=== PATIENT | male | born 1955 | race African-American/Black ===

== ENCOUNTER 2016-04-12 18:19 | Emergency (ER) | payer OTHER ==
[~2016-04-12] VITALS: Ht 165.1 cm; Wt 95.0 kg
[~2016-04-12 18:19] MED LIST: BUPR75TA PO; HYDR12.57 PO; METH750T PO; MULT-135 PO; NOVO7030P2 SQ; PANT20TA2 PO; THIA50CA PO; TRAZ100T5 PO; VENL100T PO; VENTAER INH
[2016-04-12 19:14] VITALS: BP 153/77; PULSE 99; RESP 16; TEMP 98.2; O2SAT 96
--- NOTE | 2016-04-12 19:27 | PD ---
HPI Chief Complaint: Psychiatric Symptoms Time Seen by Provider: 19:23 Travel History International Travel<30 days: No Contact w/Intl Traveler<30days: No Traveled to known affect area: No History of Present Illness HPI Patient is a 60-year-old male brought into the emergency Department under [place] act for suicidal ideations. Patient called a suicide hotline stating that he wanted to kill himself, patient stated that he was depressed and has been using drugs and alcohol for the last 3 days. Patient allegedly told the crisis hotline that he wanted to kill himself by "bleeding out". Patient disclosed that he last used alcohol and cocaine around 2 PM. He denies any physical complaints at this time. He does report wanting to get his life back together. PFSH Past Medical History Anxiety: Yes Depression: Yes Heart Rhythm Problems: No Cancer: No Cardiovascular Problems: Yes High Cholesterol: Yes Diabetes: Yes Patient Takes Glucophage: No Diminished Hearing: No Endocrine: Yes Gastrointestinal Disorders: Yes GERD: Yes Genitourinary: Yes Hepatitis: Yes (C) Hypertension: Yes Immune Disorder: No Implanted Vascular Access Dvce: No Musculoskeletal: No Neurologic: No Psychiatric: Yes Reproductive: No Respiratory: No Immunizations Current: Yes Sleep Apnea: Yes (CPAP) Tetanus Vaccination: < 5 Years Influenza Vaccination: Yes Past Surgical History Abdominal Surgery: No Cardiac Surgery: No Endocrine Surgery: No Eye Surgery: Yes (RETINA SOCKET REPAIR) Genitourinary Surgery: No Gynecologic Surgery: No Thoracic Surgery: No Other Surgery: Yes (RIGHT HAND, LEFT EYE) Social History Alcohol Use: Yes (socially) Tobacco Use: Yes (1/2 PPD) Substance Use: Yes (HX OF COCAINE AND ETOH ABUSE) Allergies-Medications (Allergen,Severity, Reaction): Coded Allergies: Lisinopril (Verified Allergy, Unknown, 04/12/16) Reported Meds & Prescriptions Reported Meds & Active Scripts Active Reported Hydrochlorothiazide 12.5 Mg Cap 12.5 Mg PO DAILY Ventolin Hfa 18 GM Inh (Albuterol Sulfate) 90 Mcg/Act Aer 2 Puff INH Q6H PRN Multi Vitamin (Multiple Vitamin) 1 Tab Tab 1 Tab PO DAILY Effexor (Venlafaxine HCl) 100 Mg Tab 100 Mg PO DAILY Trazodone HCl 100 Mg Tab 1 Tab PO HS Thiamine (Thiamine HCl) 50 Mg Cap 50 Mg PO DAILY Novolin 70-30 Inj (Insulin Human Isoph/Insulin Regular) 1,000 Unit/10 Ml Vial 40 Units SQ BID Methocarbamol 750 Mg Tab 750 Mg PO HS Pantoprazole (Pantoprazole Sodium) 20 Mg Tab 20 Mg PO DAILY Bupropion HCl Unknown Strength Tab Unknown Dose PO BID Review of Systems Except as stated in HPI: all other systems reviewed are Neg Psychiatric: Positive: Depression, Suicidal Ideations, Substance Abuse Physical Exam Narrative GENERAL: Well-developed, well-nourished, alert male. Resting comfortably in no acute distress. SKIN: Warm and dry. HEAD: Atraumatic. Normocephalic. EYES: Pupils equal and round. No scleral icterus. No injection or drainage. ENT: No nasal bleeding or discharge. Mucous membranes pink and moist. NECK: Trachea midline. No JVD. CARDIOVASCULAR: Regular rate and rhythm. No murmur appreciated. RESPIRATORY: No accessory muscle use. Clear to auscultation. Breath sounds equal bilaterally. GASTROINTESTINAL: Abdomen soft, non-tender, nondistended. Hepatic and splenic margins not palpable. MUSCULOSKELETAL: No obvious deformities. No clubbing. No cyanosis. No edema. NEUROLOGICAL: Awake and alert. No obvious cranial nerve deficits. Motor grossly within normal limits. Normal speech. PSYCHIATRIC: Appropriate mood and affect; insight and judgment normal. Data Data Last Documented VS Vital Signs Date Time Temp Pulse Resp B/P Pulse Ox O2 Delivery O2 Flow Rate FiO2 04/12/16 21:18 98.7 101 19 160/80 98 Room Air Orders Complete Blood Count With Diff (04/12/16 19:20) Comprehensive Metabolic Panel (04/12/16 19:20) Electrocardiogram (04/12/16 19:20) Psych Screen (04/12/16 19:20) Drug Screen, Random Urine (04/12/16 19:20) Alcohol (Ethanol) (04/12/16 19:20) Salicylates (Aspirin) (04/12/16 19:20) Tylenol (Acetaminophen) (04/12/16 19:20) Labs Laboratory Tests Test 04/12/16 04/12/16 19:25 20:30 White Blood Count 12.8 TH/MM3 Red Blood Count 5.64 MIL/MM3 Hemoglobin 15.3 GM/DL Hematocrit 46.0 % Mean Corpuscular Volume 81.5 FL Mean Corpuscular Hemoglobin 27.1 PG Mean Corpuscular Hemoglobin 33.2 % Concent Red Cell Distribution Width 14.0 % Platelet Count 316 TH/MM3 Mean Platelet Volume 7.4 FL Neutrophils (%) (Auto) 57.1 % Lymphocytes (%) (Auto) 35.7 % Monocytes (%) (Auto) 5.6 % Eosinophils (%) (Auto) 0.4 % Basophils (%) (Auto) 1.2 % Neutrophils # (Auto) 7.3 TH/MM3 Lymphocytes # (Auto) 4.6 TH/MM3 Monocytes # (Auto) 0.7 TH/MM3 Eosinophils # (Auto) 0.0 TH/MM3 Basophils # (Auto) 0.2 TH/MM3 CBC Comment DIFF FINAL Differential Comment Sodium Level 137 MEQ/L Potassium Level 3.8 MEQ/L Chloride Level 101 MEQ/L Carbon Dioxide Level 23.7 MEQ/L Anion Gap 12 MEQ/L Blood Urea Nitrogen 12 MG/DL Creatinine 1.40 MG/DL Estimat Glomerular Filtration 63 ML/MIN Rate Random Glucose 173 MG/DL Calcium Level 8.5 MG/DL Total Bilirubin 0.4 MG/DL Aspartate Amino Transf 215 U/L (AST/SGOT) Alanine Aminotransferase 99 U/L (ALT/SGPT) Alkaline Phosphatase 100 U/L Total Protein 8.1 GM/DL Albumin 3.9 GM/DL Salicylates Level 4.1 MG/DL Acetaminophen Level LESS THAN 2.0 MCG/ML Ethyl Alcohol Level 104 MG/DL Urine Opiates Screen NEG Urine Barbiturates Screen NEG Urine Amphetamines Screen NEG Urine Benzodiazepines Screen NEG Urine Cocaine Screen POS Urine Cannabinoids Screen NEG MDM Medical Decision Making Medical Screen Exam Complete: Yes Emergency Medical Condition: Yes Medical Record Reviewed: Yes Interpretation(s) Laboratory Tests Test 04/12/16 04/12/16 19:25 20:30 White Blood Count 12.8 TH/MM3 Red Blood Count 5.64 MIL/MM3 Hemoglobin 15.3 GM/DL Hematocrit 46.0 % Mean Corpuscular Volume 81.5 FL Mean Corpuscular Hemoglobin 27.1 PG Mean Corpuscular Hemoglobin 33.2 % Concent Red Cell Distribution Width 14.0 % Platelet Count 316 TH/MM3 Mean Platelet Volume 7.4 FL Neutrophils (%) (Auto) 57.1 % Lymphocytes (%) (Auto) 35.7 % Monocytes (%) (Auto) 5.6 % Eosinophils (%) (Auto) 0.4 % Basophils (%) (Auto) 1.2 % Neutrophils # (Auto) 7.3 TH/MM3 Lymphocytes # (Auto) 4.6 TH/MM3 Monocytes # (Auto) 0.7 TH/MM3 Eosinophils # (Auto) 0.0 TH/MM3 Basophils # (Auto) 0.2 TH/MM3 CBC Comment DIFF FINAL Differential Comment Sodium Level 137 MEQ/L Potassium Level 3.8 MEQ/L Chloride Level 101 MEQ/L Carbon Dioxide Level 23.7 MEQ/L Anion Gap 12 MEQ/L Blood Urea Nitrogen 12 MG/DL Creatinine 1.40 MG/DL Estimat Glomerular Filtration 63 ML/MIN Rate Random Glucose 173 MG/DL Calcium Level 8.5 MG/DL Total Bilirubin 0.4 MG/DL Aspartate Amino Transf 215 U/L (AST/SGOT) Alanine Aminotransferase 99 U/L (ALT/SGPT) Alkaline Phosphatase 100 U/L Total Protein 8.1 GM/DL Albumin 3.9 GM/DL Salicylates Level 4.1 MG/DL Acetaminophen Level LESS THAN 2.0 MCG/ML Ethyl Alcohol Level 104 MG/DL Urine Opiates Screen NEG Urine Barbiturates Screen NEG Urine Amphetamines Screen NEG Urine Benzodiazepines Screen NEG Urine Cocaine Screen POS Urine Cannabinoids Screen NEG Vital Signs Date Time Temp Pulse Resp B/P Pulse Ox O2 Delivery O2 Flow Rate FiO2 04/12/16 19:16 16 04/12/16 19:14 98.2 99 16 153/77 96 Differential Diagnosis Mood disorder versus substance abuse versus suicidal ideations versus other Narrative Course Patient is a 60-year-old male presented to the emergency Department under [place] act for suicidal ideations. Patient is to binging on alcohol and cocaine for the last 3 days. He admits to feeling depressed and suicidal. He denies any physical complaints at this time. Vital signs are stable. Alcohol level was 104 Tox screen was positive for cocaine Chemistry with mild transaminitis likely secondary to alcohol binge for the last 3 days EKG shows sinus rhythm with incomplete right bundle-branch block. Patient is medically clear for psychiatric evaluation at this time. Patient was given a meal, he was encouraged to increase oral fluid intake. He was advised to avoid cocaine and alcohol use. Diagnosis Primary Impression: Medical clearance for psychiatric admission Additional Impressions: Transaminitis Alcohol abuse Cocaine abuse, unspecified Condition: Stable April Maradiaga Apr 12, 2016 19:27
[2016-04-12 19:40] LABS: AUTOMATED NEUTROPHIL # 7.3 TH/MM3 (1.8-7.7); BASOPHIL # 0.2 TH/MM3 (0-0.2); BASOPHIL % 1.2 % (0.0-2.0); EOSINOPHIL % 0.4 % (0.0-4.0); HEMO FLAGS DIFF FINAL; LYMPH % 35.7 % (9.0-44.0); LYMPHOCYTE # 4.6 TH/MM3 (1.0-4.8); MEAN CELL VOLUME 81.5 FL (80.0-100.0); MEAN CORPUSCULAR HEMOGLOBIN 27.1 PG (27.0-34.0); MEAN CORPUSCULAR HGB CONC 33.2 % (32.0-36.0); MONO % 5.6 % (0.0-8.0); NEUT % 57.1 % (16.0-70.0); PLATELET COUNT 316 TH/MM3 (150-450); RED BLOOD COUNT 5.64 MIL/MM3 (4.50-5.90); WHITE BLOOD COUNT 12.8 TH/MM3 (4.0-11.0)
[2016-04-12 20:07] LABS: ANION GAP 12 MEQ/L (5-15)
[2016-04-12 20:16] LABS: ALKALINE PHOSPHATASE 100 U/L (45-117); ALT (GPT) 99 U/L (12-78); AST (GOT) 215 U/L (15-37); BICARBONATE 23.7 MEQ/L (21.0-32.0); BLOOD UREA NITROGEN 12 MG/DL (7-18); CHLORIDE 101 MEQ/L (98-107); GLOMERULAR FILTRATION RATE 63 ML/MIN (>89); POTASSIUM 3.8 MEQ/L (3.5-5.1); SODIUM (NA) 137 MEQ/L (136-145); TOTAL BILIRUBIN ADULT 0.4 MG/DL (0.2-1.0)
[2016-04-12 20:28] LABS: ACETAMINOPHEN LESS THAN 2.0 MCG/ML (10.0-30.0)
[2016-04-12 21:16] LABS: AMPHETAMINE, URINE NEG (NEG); BARBITURATES, URINE NEG (NEG); COCAINE, URINE POS (NEG)
[2016-04-12 21:18] VITALS: BP 160/80; PULSE 101; RESP 19; TEMP 98.7; O2SAT 98
[2016-04-13 02:16] VITALS: BP 145/84; PULSE 83; RESP 19; O2SAT 98
[2016-04-13 06:48] VITALS: BP_SYST 145; BP_SYST 156; BP_DIAS 109; BP_DIAS 85; PULSE 83; RESP 18; O2SAT 97
[2016-04-13] MEDS ORDERED: INSULIN HUMAN NPH/R 70/30 1,000 UNITS/10 ML VIAL SQ ONE (08:15)
[2016-04-13 11:28] VITALS: BP 150/68; PULSE 90; RESP 16; TEMP 97.2; O2SAT 97
[2016-04-13] MEDS ORDERED: buPROPion HCL 150 MG SUSTAINED RELEASE TAB PO ONE (12:00)
--- NOTE | 2016-04-13 14:29 | EKG ---
Date Performed: 04/12/2016 Time Performed: 19:29:53 PTAGE: 60 years EKG: Sinus rhythm INCOMPLETE RIGHT BUNDLE BRANCH BLOCK NONSPECIFIC T-WAVE ABNORMALITY BORDERLINE ECG Compared to prior tracing no significant change PREVIOUS TRACING : 06/18/2014 09.47 DOCTOR: Conrado Ervin Interpretating Date/Time 04/13/2016 14:26:49
[2016-06-08] MEDS ORDERED: BUPR75TA PO (01:40)
== END 2016-04-13 14:31 ==
LOC: NEPE 18:19 → NEPJ 04-13 14:31
DX: R45.851 Suicidal ideations (principal); R74.0 Nonspecific elevation of levels of transaminase and lactic acid dehydrogenase [LDH]; F10.10 Alcohol abuse, uncomplicated; F10.129 Alcohol abuse with intoxication, unspecified; E78.00 Pure hypercholesterolemia, unspecified; E11.9 Type 2 diabetes mellitus without complications; I10 Essential (primary) hypertension; I45.10 Unspecified right bundle-branch block; F17.210 Nicotine dependence, cigarettes, uncomplicated; Y90.5 Blood alcohol level of 100-119 mg/100 ml; Z79.4 Long term (current) use of insulin
CPT/HCPCS: 80053; 80307; 85025; 93005; 96372; 99285; J1815; 80320

== ENCOUNTER 2016-05-07 04:18 | Inpatient (IN) | payer OTHER ==
[~2016-05-07] VITALS: Ht 172.7 cm; Wt 92.7 kg
[2016-05-07] VITALS (12 sets, daily range): BP systolic 142–175; BP diastolic 63–118; PULSE 68–104; RESP 15–24; TEMP 96.8–98.6; O2SAT 96–100
[2016-05-07] MEDS ORDERED: SODIUM CHLORIDE 0.9% FLUSH 10 ML FLUSH IVF PRN (04:45)
[2016-05-07] MEDS ORDERED: ASPIRIN 81 MG CHEW TAB PO ONE (04:45)
[2016-05-07 05:04] LABS: AUTOMATED NEUTROPHIL # 7.9 TH/MM3 (1.8-7.7); BASOPHIL # 0.1 TH/MM3 (0-0.2); BASOPHIL % 1.1 % (0.0-2.0); EOSINOPHIL % 0.2 % (0.0-4.0); HEMO FLAGS DIFF FINAL; LYMPH % 28.3 % (9.0-44.0); LYMPHOCYTE # 3.6 TH/MM3 (1.0-4.8); MEAN CELL VOLUME 80.2 FL (80.0-100.0); MEAN CORPUSCULAR HEMOGLOBIN 27.6 PG (27.0-34.0); MEAN CORPUSCULAR HGB CONC 34.4 % (32.0-36.0); NEUT % 61.4 % (16.0-70.0); PLATELET COUNT 286 TH/MM3 (150-450); RED BLOOD COUNT 5.49 MIL/MM3 (4.50-5.90); RED CELL DISTRIBUTION WIDTH 14.3 % (11.6-17.2); WHITE BLOOD COUNT 12.8 TH/MM3 (4.0-11.0)
[2016-05-07 05:14] LABS: INTERNATIONAL NORMALIZED RATIO 1.1 RATIO; PROTHROMBIN TIME - PATIENT 12.3 SEC (9.8-11.6)
[2016-05-07 05:16] LABS: ALT (GPT) 68 U/L (12-78); ANION GAP 10 MEQ/L (5-15); AST (GOT) 45 U/L (15-37); BICARBONATE 25.3 MEQ/L (21.0-32.0); BLOOD UREA NITROGEN 6 MG/DL (7-18); CHLORIDE 104 MEQ/L (98-107); GLOMERULAR FILTRATION RATE 76 ML/MIN (>89); MAGNESIUM 1.9 MG/DL (1.5-2.5); POTASSIUM 3.7 MEQ/L (3.5-5.1); SODIUM (NA) 139 MEQ/L (136-145)
--- NOTE | 2016-05-07 05:26 | RADRPT ---
EXAM DATE/TIME: 05/07/2016 05:21 [facility] COMPARISON: CHEST SINGLE AP, December 18, 2012, 2:46. INDICATIONS : Chest pain. MEDICAL HISTORY : None. SURGICAL HISTORY : None. ENCOUNTER: Initial ACUITY: 1 day PAIN SCORE: 6/10 LOCATION: Bilateral chest FINDINGS: A single view of the chest demonstrates the lungs to be symmetrically aerated without evidence of mas s, infiltrate or effusion. Minimal basilar atelectasis. The cardiomediastinal contours are unremarkab le. Osseous structures are intact. CONCLUSION: 1. Minimal basilar atelectasis. No significant change from December 2012. Angel Childers MD on May 07, 2016 at 5:24 Board Certified Radiologist. This report was verified electronically.
[2016-05-07 05:30] LABS: ALKALINE PHOSPHATASE 75 U/L (45-117); CREATINE KINASE 1562 U/L (39-308); TOTAL BILIRUBIN ADULT 0.4 MG/DL (0.2-1.0)
[2016-05-07 05:42] LABS: CKMB 12.6 NG/ML (0.5-3.6)
[2016-05-07] MEDS ORDERED: SODIUM CHLOR 0.9% 1000 ML INJ 1,000 ML IV ONE (06:15)
[2016-05-07] MEDS ORDERED: MORPHINE SULFATE 4 MG/ML INJ IV PUSH ONE (06:30)
--- NOTE | 2016-05-07 06:41 | PD ---
HPI Chief Complaint: Chest Pain Time Seen by Provider: 04:43 Travel History International Travel<30 days: No Contact w/Intl Traveler<30days: No Traveled to known affect area: No History of Present Illness HPI Patient is a 60-year-old male who comes in complaining of chest pain. He says he drank 12 beers tonight and did $100 worth of cocaine. He says the pain started about 2 hours ago and is on the left side. Also says he has some shortness of breath and some nausea. He denies fever or chills. He has been here in the past for the same thing. PFSH Past Medical History Anxiety: Yes Depression: Yes Heart Rhythm Problems: No Cancer: No Cardiovascular Problems: Yes High Cholesterol: Yes Diabetes: Yes Patient Takes Glucophage: Yes Diminished Hearing: No Endocrine: Yes Gastrointestinal Disorders: Yes GERD: Yes Genitourinary: Yes Hepatitis: Yes (C) Hypertension: Yes Immune Disorder: No Implanted Vascular Access Dvce: No Musculoskeletal: No Neurologic: No Psychiatric: Yes Reproductive: No Respiratory: No Immunizations Current: Yes Sleep Apnea: Yes (CPAP) Influenza Vaccination: Yes Past Surgical History Abdominal Surgery: No Cardiac Surgery: No Endocrine Surgery: No Eye Surgery: Yes (RETINA SOCKET REPAIR) Genitourinary Surgery: No Gynecologic Surgery: No Thoracic Surgery: No Other Surgery: Yes (RIGHT HAND, LEFT EYE) Social History Alcohol Use: Yes (daily) Tobacco Use: Yes (1/2 PPD) Substance Use: Yes (HX OF COCAINE AND ETOH ABUSE) Allergies-Medications (Allergen,Severity, Reaction): Coded Allergies: Lisinopril (Verified Allergy, Unknown, 05/07/16) Reported Meds & Prescriptions Reported Meds & Active Scripts Active Reported Hydrochlorothiazide 12.5 Mg Cap 12.5 Mg PO DAILY Ventolin Hfa 18 GM Inh (Albuterol Sulfate) 90 Mcg/Act Aer 2 Puff INH Q6H PRN Multi Vitamin (Multiple Vitamin) 1 Tab Tab 1 Tab PO DAILY Effexor (Venlafaxine HCl) 100 Mg Tab 100 Mg PO DAILY Trazodone HCl 100 Mg Tab 1 Tab PO HS Thiamine (Thiamine HCl) 50 Mg Cap 50 Mg PO DAILY Novolin 70-30 Inj (Insulin Human Isoph/Insulin Regular) 1,000 Unit/10 Ml Vial 40 Units SQ BID Methocarbamol 750 Mg Tab 750 Mg PO HS Pantoprazole (Pantoprazole Sodium) 20 Mg Tab 20 Mg PO DAILY Bupropion HCl Unknown Strength Tab Unknown Dose PO BID Review of Systems Except as stated in HPI: all other systems reviewed are Neg General / Constitutional: No: Fever, Chills HENT: No: Headaches, Lightheadedness Cardiovascular: Positive: Chest Pain or Discomfort Respiratory: Positive: Shortness of Breath Gastrointestinal: Positive: Nausea, No: Abdominal Pain Musculoskeletal: No: Edema, Pain Skin: No Rash, No Change in Pigmentation Neurologic: No: Weakness, Dizziness Physical Exam Narrative GENERAL: Awake and alert, in no acute distress. SKIN: Focused skin assessment warm/dry. HEAD: Atraumatic. Normocephalic. EYES: Pupils equal and round. No scleral icterus. ENT: Mucous membranes pink and moist. NECK: Trachea midline. No JVD. CARDIOVASCULAR: Tachycardia. No murmur appreciated. RESPIRATORY: No accessory muscle use. Clear to auscultation. Breath sounds equal bilaterally. GASTROINTESTINAL: Abdomen soft, non-tender, nondistended. MUSCULOSKELETAL: No obvious deformities. No clubbing. No cyanosis. No edema. NEUROLOGICAL: Awake and alert. No obvious cranial nerve deficits. Motor grossly within normal limits. Normal speech. PSYCHIATRIC: Appropriate mood and affect; insight and judgment normal. Data Data Last Documented VS Vital Signs Date Time Temp Pulse Resp B/P Pulse Ox O2 Delivery O2 Flow Rate FiO2 05/07/16 06:34 93 20 158/83 99 Nasal Cannula 05/07/16 05:16 2 05/07/16 04:54 98.6 Orders Ckmb (Isoenzyme) Profile (05/07/16 04:43) Complete Blood Count With Diff (05/07/16 04:43) Comprehensive Metabolic Panel (05/07/16 04:43) Magnesium (Mg) (05/07/16 04:43) Prothrombin Time / Inr (Pt) (05/07/16 04:43) Act Partial Throm Time (Ptt) (05/07/16 04:43) Troponin I (05/07/16 04:43) Chest, Single Ap (05/07/16 04:43) Ecg Monitoring (05/07/16 04:43) Bilateral Bp Monitoring (05/07/16 04:43) Iv Access Insert/Monitor (05/07/16 04:43) Oximetry (05/07/16 04:43) Oxygen Administration (05/07/16 04:43) Aspirin Chew (Aspirin Chew) (05/07/16 04:45) Sodium Chloride 0.9% Flush (Ns Flush) (05/07/16 04:45) Drug Screen, Random Urine (05/07/16 04:43) CKMB (05/07/16 04:50) CKMB% (05/07/16 04:50) Sodium Chlor 0.9% 1000 Ml Inj (Ns 1000 M (05/07/16 06:15) Morphine Inj (Morphine Inj) (05/07/16 06:30) Admit Order (Ed Use Only) (05/07/16 ) Labs Laboratory Tests Test 05/07/16 04:50 White Blood Count 12.8 TH/MM3 Red Blood Count 5.49 MIL/MM3 Hemoglobin 15.1 GM/DL Hematocrit 44.0 % Mean Corpuscular Volume 80.2 FL Mean Corpuscular Hemoglobin 27.6 PG Mean Corpuscular Hemoglobin 34.4 % Concent Red Cell Distribution Width 14.3 % Platelet Count 286 TH/MM3 Mean Platelet Volume 7.9 FL Neutrophils (%) (Auto) 61.4 % Lymphocytes (%) (Auto) 28.3 % Monocytes (%) (Auto) 9.0 % Eosinophils (%) (Auto) 0.2 % Basophils (%) (Auto) 1.1 % Neutrophils # (Auto) 7.9 TH/MM3 Lymphocytes # (Auto) 3.6 TH/MM3 Monocytes # (Auto) 1.2 TH/MM3 Eosinophils # (Auto) 0.0 TH/MM3 Basophils # (Auto) 0.1 TH/MM3 CBC Comment DIFF FINAL Differential Comment Prothrombin Time 12.3 SEC Prothromb Time International 1.1 RATIO Ratio Activated Partial 25.0 SEC Thromboplast Time Sodium Level 139 MEQ/L Potassium Level 3.7 MEQ/L Chloride Level 104 MEQ/L Carbon Dioxide Level 25.3 MEQ/L Anion Gap 10 MEQ/L Blood Urea Nitrogen 6 MG/DL Creatinine 1.19 MG/DL Estimat Glomerular Filtration 76 ML/MIN Rate Random Glucose 125 MG/DL Calcium Level 8.9 MG/DL Magnesium Level 1.9 MG/DL Total Bilirubin 0.4 MG/DL Aspartate Amino Transf 45 U/L (AST/SGOT) Alanine Aminotransferase 68 U/L (ALT/SGPT) Alkaline Phosphatase 75 U/L Total Creatine Kinase 1562 U/L Creatine Kinase MB 12.6 NG/ML Creatine Kinase MB % 0.8 % Troponin I 0.05 NG/ML Total Protein 7.6 GM/DL Albumin 3.6 GM/DL MDM Medical Decision Making Medical Screen Exam Complete: Yes Emergency Medical Condition: Yes Medical Record Reviewed: Yes Interpretation(s) ECG shows sinus tachycardia at 101, no ST elevation or depression. Differential Diagnosis ACS versus NSTEMI versus STEMI versus cocaine chest pain versus rhabdo Narrative Course Patient is a 60-year-old male comes in complaining of chest pain after using cocaine tonight. Exam shows no acute abnormalities other than some mild tachycardia. IV established, labs sent. Patient connected to the front desk monitor. Given aspirin. Significant for a total CK of 1500. Troponin is negative. Patient given IV fluids. Given morphine for pain. Will be placed in observation for further management. Diagnosis Primary Impression: Rhabdomyolysis Qualified Code: M62.82 - Non-traumatic rhabdomyolysis Additional Impression: Chest pain Qualified Code: R07.9 - Chest pain, unspecified type Admitting Information Admitting Physician Requests: Observation Condition: Stable Samantha Dejesus MD May 07, 2016 06:41
[2016-05-07] MEDS ORDERED: ACETAMINOPHEN 325 MG TAB PO PRN (06:45)
[2016-05-07] MEDS ORDERED: DEXTROSE 50% IN WATER 50 ML VIAL(D50) IV PUSH PRN (06:45)
[2016-05-07] MEDS: HEPARIN SODIUM - SQ 10,000 UNITS/ML VIAL SQ SCH ×3 (06:45→21:03)
[2016-05-07] MEDS ORDERED: GLUCAGON 1 MG/ML VIAL OTHER PRN (06:45)
[2016-05-07] MEDS ORDERED: MAGNESIUM HYDROXIDE SUSP 30 ML CUP PO PRN (06:45)
[2016-05-07] MEDS ORDERED: ONDANSETRON HCL 4 MG/2 ML VIAL IVP PRN (06:45)
[2016-05-07] MEDS ORDERED: SENNOSIDES 8.6 MG TAB PO PRN (06:45)
[2016-05-07] MEDS: SODIUM CHLOR 0.9% 1000 ML INJ 1,000 ML IV SCH ×3 (06:53→19:58)
[2016-05-07] MEDS: INSULIN ASPART SUPPLEMENTAL SCALE SQ SCH ×4 (07:00→21:02)
[2016-05-07] MEDS ORDERED: ALBUTEROL SULFATE 90 MCG/ACT HFA 18 GM INHALER INH PRN (09:15)
[2016-05-07] MEDS: THIAMINE INJ 100 MG in SODIUM CHLORIDE 0.9% INJ 100 ML IV SCH (09:18)
[2016-05-07] MEDS ORDERED: LORazepam 1 MG TAB PO PRN (10:15)
[2016-05-07] MEDS ORDERED: LORazepam 2 MG TAB PO PRN (10:15)
[2016-05-07] MEDS ORDERED: FLUMAZENIL 0.5 MG/5 ML VIAL IV PUSH PRN (10:15)
[2016-05-07] MEDS ORDERED: LORazepam 2 MG/ML VIAL IV PUSH PRN ×2 (10:15)
[2016-05-07] MEDS ORDERED: cloNIDine HCL 0.1 MG TAB PO PRN (11:00)
--- NOTE | 2016-05-07 11:15 | HHI.HP ---
HPI Service [facility] Primary Care Physician Ap Cope MD Admission Diagnosis Chest Pain, rhabdo Diagnoses: Chief Complaint: Chest pain Travel History International Travel<30 Days: No Contact w/Intl Traveler <30 Da: No Traveled to Known Affected Are: No History of Present Illness 60-year-old male with a past medical history of polysubstance abuse, DM, anxiety /depression, HTN, GERD, COPD who presented with nervousness, chest, neck, low back pain. The patient states that recently he's been having pain in his chest , neck, and lower back. He states the pain was exacerbated after smoking crack cocaine yesterday. He states that recently he's been more anxious and depressed and normal, so he is been drinking and using drugs more. He states that normally he drinks beer every day. However for the past 2 weeks he's been constantly drinking liquor as well. He's been smoking crack cocaine approximately twice a week. He describes the chest pain as left-sided, a pressure, intermittently heavy, no radiation, 7/10 at its worst, associated shortness of breath. He states morphine helped the pain and he is requesting more morphine. He denies any prior cardiac history. He had vomiting 2 days ago , still has associated nausea. He has left thigh cramping. Review of Systems Except as stated in HPI: all other systems reviewed are Neg Past Family Social History Past Medical History Diabetes mellitus Anxiety/depression Hypertension GERD COPD Past Surgical History Right orbit surgery Right hand surgery Reported Medications Hydrochlorothiazide 12.5 Mg Cap 12.5 Mg PO DAILY Ventolin Hfa 18 GM Inh (Albuterol Sulfate) 90 Mcg/Act Aer 2 Puff INH Q6H PRN Multi Vitamin (Multiple Vitamin) 1 Tab Tab 1 Tab PO DAILY Effexor (Venlafaxine HCl) 100 Mg Tab 100 Mg PO DAILY Trazodone HCl 100 Mg Tab 1 Tab PO HS Thiamine (Thiamine HCl) 50 Mg Cap 50 Mg PO DAILY Novolin 70-30 Inj (Insulin Human Isoph/Insulin Regular) 1,000 Unit/10 Ml Vial 40 Units SQ BID Methocarbamol 750 Mg Tab 750 Mg PO HS Pantoprazole (Pantoprazole Sodium) 20 Mg Tab 20 Mg PO DAILY Bupropion HCl Unknown Strength Tab Unknown Dose PO BID Allergies: Coded Allergies: Lisinopril (Verified Allergy, Unknown, 05/07/16) Active Ordered Medications Current Medications Medications (Trade) Dose Ordered Sig/Salas Route Start Time Stop Time Status Last Admin Sodium Chloride 2 ml 2 ml UNSCH PRN IVF 05/07/16 04:45 (NS 1000 ml Inj) 1,000 ml @ 150 mls/hr Q6H40M IV 05/07/16 06:38 05/07/16 06:53 (Zofran Inj) 4 mg Q6H PRN IVP 05/07/16 06:45 (Milk Of Magnesia Liq) 30 ml Q12H PRN PO 05/07/16 06:45 (Senokot) 17.2 mg Q12H PRN PO 05/07/16 06:45 (Heparin Inj) 5,000 units Q8HR SQ 05/07/16 06:45 (Tylenol) 650 mg Q6H PRN PO 05/07/16 06:45 (D50w (Vial) Inj) 25 ml UNSCH PRN IV PUSH 05/07/16 06:45 Glucagon 1 mg 1 mg UNSCH PRN OTHER 05/07/16 06:45 (Thiamine Inj/NS Inj) 101 ml @ 101 mls/hr DAILY IV 05/07/16 09:00 05/07/16 09:18 (Ventolin Hfa Inh) 2 puff Q6H PRN INH 05/07/16 09:15 (Protonix) 20 mg DAILY PO 05/08/16 09:00 (Vitamin B1) 50 mg DAILY PO 05/08/16 09:00 (Effexor) 100 mg DAILY PO 05/07/16 09:15 (Desyrel) 100 mg HS PO 05/07/16 21:00 (Folate) 1 mg DAILY PO 05/08/16 09:00 05/13/16 08:59 (Theragran M Tab) 1 tab DAILY PO 05/08/16 09:00 05/13/16 08:59 (Catapres) 0.1 mg Q6H PRN PO 05/07/16 11:00 (Romazicon Inj) 0.2 mg Q1M PRN IV PUSH 05/07/16 10:15 (Ativan) 1 mg Q4H PRN PO 05/07/16 10:15 (Ativan) 2 mg Q2H PRN PO 05/07/16 10:15 (Ativan Inj) 2 mg Q1H PRN IV PUSH 05/07/16 10:15 (Ativan Inj) 2 mg Q15M PRN IV PUSH 05/07/16 10:15 Family History Diabetes Social History Drinks beer daily, has been drinking liquor more recently Smokes crack cocaine approximately twice weekly Smokes about 1 pack tobacco daily Physical Exam Vital Signs Vital Signs Date Time Temp Pulse Resp B/P Pulse Ox O2 Delivery O2 Flow Rate FiO2 05/07/16 09:00 94 15 175/80 97 Room Air 05/07/16 06:50 68 20 148/63 98 Nasal Cannula 2 05/07/16 06:34 93 20 158/83 99 Nasal Cannula 05/07/16 05:16 97 24 155/118 96 2 163/79 05/07/16 04:57 96 Nasal Cannula 2 05/07/16 04:56 96 24 96 Nasal Cannula 05/07/16 04:54 98.6 20 96 Nasal Cannula 2 05/07/16 04:36 98.6 104 20 161/77 96 Physical Exam GENERAL: Well-developed well-nourished. In no acute distress. Forceful coughing after no previous complaints of cough. SKIN: Warm and dry. No lesions noted. HEENT: Normocephalic. Pupils equal and round. Mucous membranes pink and moist. CARDIOVASCULAR: Regular rate and rhythm. No murmur appreciated. RESPIRATORY: No accessory muscle use. Clear to auscultation. Breath sounds equal bilaterally. GASTROINTESTINAL: Abdomen soft, non-tender, nondistended. Bowel sounds x4. MUSCULOSKELETAL: No obvious deformities. No clubbing or cyanosis. No edema. NEUROLOGICAL: Awake and alert. No focal neurological deficits. Moves upper and lower extremities spontaneously. Normal speech. PSYCHIATRIC: Appropriate mood and affect; insight and judgment normal. Laboratory Laboratory Tests Test 05/07/16 04:50 White Blood Count 12.8 Red Blood Count 5.49 Hemoglobin 15.1 Hematocrit 44.0 Mean Corpuscular Volume 80.2 Mean Corpuscular Hemoglobin 27.6 Mean Corpuscular Hemoglobin 34.4 Concent Red Cell Distribution Width 14.3 Platelet Count 286 Mean Platelet Volume 7.9 Neutrophils (%) (Auto) 61.4 Lymphocytes (%) (Auto) 28.3 Monocytes (%) (Auto) 9.0 Eosinophils (%) (Auto) 0.2 Basophils (%) (Auto) 1.1 Neutrophils # (Auto) 7.9 Lymphocytes # (Auto) 3.6 Monocytes # (Auto) 1.2 Eosinophils # (Auto) 0.0 Basophils # (Auto) 0.1 CBC Comment DIFF FINAL Differential Comment Prothrombin Time 12.3 Prothromb Time International 1.1 Ratio Activated Partial 25.0 Thromboplast Time Sodium Level 139 Potassium Level 3.7 Chloride Level 104 Carbon Dioxide Level 25.3 Anion Gap 10 Blood Urea Nitrogen 6 Creatinine 1.19 Estimat Glomerular Filtration 76 Rate Random Glucose 125 Calcium Level 8.9 Magnesium Level 1.9 Total Bilirubin 0.4 Aspartate Amino Transf 45 (AST/SGOT) Alanine Aminotransferase 68 (ALT/SGPT) Alkaline Phosphatase 75 Total Creatine Kinase 1562 Creatine Kinase MB 12.6 Creatine Kinase MB % 0.8 Troponin I 0.05 Total Protein 7.6 Albumin 3.6 Result Diagram: 05/07/1644905/07/16449 Imaging Last Impressions Chest X-Ray 05/07/16442 Signed Impressions: Service Date/Time: Saturday, May 07, 2016 05:21 - CONCLUSION: 1. Minimal basilar atelectasis. No significant change from December 2012. Angel Childers MD Assessment and Plan Problem List: (1) Rhabdomyolysis ICD Code: M62.82 Status: Acute (2) Chest pain ICD Code: R07.9 Status: Acute (3) Cocaine abuse, unspecified ICD Code: F14.10 Status: Acute (4) Alcohol abuse ICD Code: F10.10 Status: Chronic (5) Diabetes ICD Code: E11.9 Status: Chronic Assessment and Plan 60-year-old male with a past medical history of polysubstance abuse, DM, anxiety /depression, HTN, GERD, COPD who presented with nervousness, chest, neck, low back pain Acute rhabdomyolysis: CPK 1562, likely secondary to cocaine use. Patient has associated left thigh cramping and pain in his chest, neck, and low back. Aggressive IVF. Trend CPK. Monitor renal function. Avoid cocaine. Chest pain: Likely secondary to rhabdomyolysis and cocaine use as above. Initial troponin within normal limits, trending. EKG with NSR, rate 101, no significant change from previous. Chest x-ray with minimal basilar atelectasis , no significant change from previous. IS. Treat rhabdomyolysis as above. Given aspirin in the ED. Avoid beta blockers and cocaine use. Polysubstance abuse: Secondary to anxiety and depression per patient. Cessation counseling. Resume home antidepressants and anxiolytics. Consult psychiatry. Alcohol abuse: Daily use, no signs of withdrawal currently. CIWA protocol and rally pack. Diabetes mellitus: Resume home Novolin 70/30. Additional coverage with SSI with Accu-Cheks. DVT prophylaxis: Heparin Written by Thor Givens, acting as scribe for Dr. Lopez on 05/07/16 at 11:15. All or portions of this note were transcribed by starr STEINBERG. I, Dr. Sofía Lopez personally performed the history, physical exam, and medical decision making; and confirmed the accuracy of the information in the transcribed note. Authenticated by Dr. Sofía Lopez on 05/07/16 at 11:15. Discussed Condition With Patient Problem Qualifiers (1) Rhabdomyolysis: Qualified Code: M62.82 - Non-traumatic rhabdomyolysis (2) Chest pain: Qualified Code: R07.9 - Chest pain, unspecified type Thor Givens May 07, 2016 11:15 Sofía Lopez MD May 07, 2016 15:41
[2016-05-07] MEDS: VENLAFAXINE HCL 25 MG TAB PO SCH (11:21)
[2016-05-07 17:03] LABS: CKMB 9.5 NG/ML (0.5-3.6)
[2016-05-07 19:50] LABS: AMPHETAMINE, URINE NEG (NEG); BARBITURATES, URINE NEG (NEG); COCAINE, URINE POS (NEG)
--- NOTE | 2016-05-07 20:17 | EKG ---
Date Performed: 05/07/2016 Time Performed: 04:27:40 PTAGE: 60 years EKG: SINUS TACHYCARDIA ABNORMAL RHYTHM ECG Compared to prior tracing no significant change DOCTOR: Gely Goodman Interpretating Date/Time 05/07/2016 20:16:18
[2016-05-07] MEDS ORDERED: traZODone HCL 100 MG TAB PO SCH (21:00)
[2016-05-07] MEDS: INSULIN HUMAN NPH/R 70/30 1,000 UNITS/10 ML VIAL SQ SCH (21:03)
[2016-05-07 22:00] LABS: CKMB 7.3 NG/ML (0.5-3.6)
[2016-05-08] VITALS: BP 130/64; PULSE 93; RESP 20; TEMP 96.5; O2SAT 94
[2016-05-08] MEDS: SODIUM CHLOR 0.9% 1000 ML INJ 1,000 ML IV SCH (02:38)
[2016-05-08 04:00] VITALS: BP 151/70; PULSE 73; RESP 20; O2SAT 94
[2016-05-08] MEDS: INSULIN ASPART SUPPLEMENTAL SCALE SQ SCH ×2 (06:00→11:00)
[2016-05-08] MEDS: HEPARIN SODIUM - SQ 10,000 UNITS/ML VIAL SQ SCH ×2 (06:00→13:39)
[2016-05-08 07:08] LABS: AUTOMATED NEUTROPHIL # 4.6 TH/MM3 (1.8-7.7); BASOPHIL # 0.1 TH/MM3 (0-0.2); BASOPHIL % 0.8 % (0.0-2.0); EOSINOPHIL # 0.1 TH/MM3 (0-0.4); EOSINOPHIL % 1.5 % (0.0-4.0); HEMATOCRIT 42.8 % (39.0-51.0); HEMO FLAGS DIFF FINAL; LYMPH % 41.3 % (9.0-44.0); MEAN CELL VOLUME 82.2 FL (80.0-100.0); MEAN CORPUSCULAR HEMOGLOBIN 26.7 PG (27.0-34.0); MEAN CORPUSCULAR HGB CONC 32.4 % (32.0-36.0); MONO % 9.4 % (0.0-8.0); PLATELET COUNT 262 TH/MM3 (150-450); RED BLOOD COUNT 5.21 MIL/MM3 (4.50-5.90); RED CELL DISTRIBUTION WIDTH 14.1 % (11.6-17.2); WHITE BLOOD COUNT 9.8 TH/MM3 (4.0-11.0)
--- NOTE | 2016-05-08 07:22 | HHI.PR ---
Subjective Remarks At the margin of the bed. Says she feesl much better. Denies chest pain , n/v/d/ c. Seen by psych cleared the patient for DC to follow up as OP with psych doc at [place] Objective Vitals Vital Signs Date Time Temp Pulse Resp B/P Pulse Ox O2 Delivery O2 Flow Rate FiO2 05/08/16 04:00 73 20 151/70 94 05/08/16 00:00 96.5 93 20 130/64 94 05/07/16 21:05 82 05/07/16 20:00 97.2 87 20 175/81 97 05/07/16 15:31 79 05/07/16 15:00 96.8 75 16 166/82 96 05/07/16 11:36 100 Nasal Cannula 2.00 05/07/16 11:36 100 21 05/07/16 11:23 86 15 142/69 99 Room Air 2 05/07/16 09:00 94 15 175/80 97 Room Air I/O 05/07/16 05/07/16 05/07/16 05/08/16 05/08/16 05/08/16 07:00 15:00 23:00 07:00 15:00 23:00 Intake Total 935 ml 240 ml Output Total 500 ml 800 ml Balance -500 ml 935 ml -560 ml Intake Oral 480 ml 240 ml IV Total 455 ml Output Urine Total 500 ml 800 ml # Voids 1 Result Diagram: 05/08/16 0550 05/07/16 0450 Imaging Last Impressions Chest X-Ray 05/07/16 0443 Signed Impressions: Service Date/Time: Saturday, May 07, 2016 05:21 - CONCLUSION: 1. Minimal basilar atelectasis. No significant change from December 2012. Angel Childers MD Objective Remarks GENERAL: Well-developed well-nourished. In no acute distress. SKIN: Warm and dry. No lesions noted. HEENT: Normocephalic. Pupils equal and round. Mucous membranes pink and moist. CARDIOVASCULAR: Regular rate and rhythm. No murmur appreciated. RESPIRATORY: No accessory muscle use. Clear to auscultation. Breath sounds equal bilaterally. GASTROINTESTINAL: Abdomen soft, non-tender, nondistended. Bowel sounds x4. MUSCULOSKELETAL: No obvious deformities. No clubbing or cyanosis. No edema. NEUROLOGICAL: Awake and alert. No focal neurological deficits. Moves upper and lower extremities spontaneously. Normal speech. PSYCHIATRIC: Appropriate mood and affect; insight and judgment normal. A/P Problem List: (1) Rhabdomyolysis ICD Code: M62.82 Status: Acute (2) Chest pain ICD Code: R07.9 Status: Acute (3) Cocaine abuse, unspecified ICD Code: F14.10 Status: Acute (4) Alcohol abuse ICD Code: F10.10 Status: Chronic (5) Diabetes ICD Code: E11.9 Status: Chronic Assessment and Plan 60-year-old male with a past medical history of polysubstance abuse, DM, anxiety /depression, HTN, GERD, COPD who presented with nervousness, chest, neck, low back pain Acute rhabdomyolysis: CPK 1562 on admission, likely secondary to cocaine use. CPK trending down. Patient has associated left thigh cramping and pain in his chest, neck, and low back. Aggressive IVF. Trend CPK. Monitor renal function. Avoid cocaine. Chest pain: Likely secondary to rhabdomyolysis and cocaine use as above. Initial troponin within normal limits, trending. EKG with NSR, rate 101, no significant change from previous. Chest x-ray with minimal basilar atelectasis , no significant change from previous. IS. Treat rhabdomyolysis as above. Given aspirin in the ED. Avoid beta blockers and cocaine use. Polysubstance abuse: Secondary to anxiety and depression per patient. Cessation counseling. Resume home antidepressants and anxiolytics. Consult psychiatry. Discussed with Dr Saleh,psych. Patient is cleared for DC to follow up as OP with his psychiatry doctor. Alcohol abuse: Daily use, no signs of withdrawal currently. CIWA protocol and rally pack. Diabetes mellitus: Resume home Novolin 70/30. Additional coverage with SSI with Accu-Cheks. DVT prophylaxis: Heparin Discussed Condition With Patient, nurse Discharge Planning DC home in stable condition To followup as OP with PCP and psych Diet: Keep hydrated, drink plenty of fluids. Regular diet as tolerated. Quit EtOH use and substance use. Activity ad lid as tolerated Meds per med reconciliations Problem Qualifiers (1) Rhabdomyolysis: Qualified Code: M62.82 - Non-traumatic rhabdomyolysis (2) Chest pain: Qualified Code: R07.9 - Chest pain, unspecified type Sofía Lopez MD May 08, 2016 07:22
[2016-05-08 07:35] LABS: ALKALINE PHOSPHATASE 70 U/L (45-117); ALT (GPT) 50 U/L (12-78); ANION GAP 9 MEQ/L (5-15); AST (GOT) 29 U/L (15-37); BICARBONATE 27.2 MEQ/L (21.0-32.0); BLOOD UREA NITROGEN 10 MG/DL (7-18); CHLORIDE 105 MEQ/L (98-107); CREATINE KINASE 716 U/L (39-308); GLOMERULAR FILTRATION RATE 77 ML/MIN (>89); POTASSIUM 3.9 MEQ/L (3.5-5.1); SODIUM (NA) 141 MEQ/L (136-145); TOTAL BILIRUBIN ADULT 0.3 MG/DL (0.2-1.0)
[2016-05-08 08:04] LABS: CKMB 6.1 NG/ML (0.5-3.6)
[2016-05-08] MEDS ORDERED: SODIUM CHLOR 0.9% 1000 ML INJ 1,000 ML IV ONE (08:15)
--- NOTE | 2016-05-08 08:15 | HHI.DCPOC ---
Discharge Care Plan Goals to Promote Your Health * To prevent worsening of your condition and complications * To maintain your health at the optimal level Directions to Meet Your Goals Take your medications as prescribed Follow your dietary instruction Follow activity as directed Keep your appointments as scheduled Take your immunizations and boosters as scheduled If your symptoms worsen call your PCP, if no PCP go to Urgent Care Center or Emergency Room Smoking is Dangerous to Your Health. Avoid second hand smoke Call the 24-hour hour crisis hotline for domestic abuse at Sofía Lopez MD May 08, 2016 08:15
[2016-05-08] MEDS: THIAMINE INJ 100 MG in SODIUM CHLORIDE 0.9% INJ 100 ML IV SCH (08:33)
[2016-05-08] MEDS: VENLAFAXINE HCL 25 MG TAB PO SCH (08:33)
[2016-05-08] MEDS: INSULIN HUMAN NPH/R 70/30 1,000 UNITS/10 ML VIAL SQ SCH (08:43)
[2016-05-08 08:56] VITALS: BP 150/77; PULSE 85; RESP 16; TEMP 97.2; O2SAT 94
[2016-05-08] MEDS ORDERED: FOLIC ACID 1 MG TAB PO SCH (09:00)
[2016-05-08] MEDS ORDERED: THIAMINE HCL 100 MG TAB PO SCH (09:00)
[2016-05-08] MEDS ORDERED: PANTOPRAZOLE SOD 20 MG DELAYED RELEASE TAB PO SCH (09:00)
[2016-05-08] MEDS ORDERED: MULTIVITAMINS/MINERALS THERAPEUTIC TAB PO SCH (09:00)
[2016-05-08] MEDS ORDERED: PNEUMOCOCCAL POLYVALENT INJ 25 MCG/0.5 ML SYR IM ONE (10:00)
[2016-05-08] MEDS ORDERED: INFLUENZA VIRUS VACCINE (QUADRIVALENT) 0.5 ML SYR IM ONE (10:00)
[2016-05-08 12:12] VITALS: BP 151/88; PULSE 85; RESP 16; TEMP 97.1; O2SAT 97
[2016-05-08 12:14] VITALS: PULSE 95
--- NOTE | 2016-05-08 14:55 | PD.CONS ---
Provisional Diagnosis Admission Date May 07, 2016 at 06:38 [place] I. schizoaffective disorder, anxiety, polysubstance dependence including cocaine, alcohol and opiates [place] II. Deferred [place] III. DM, HTN, hepatitis, chest pain [place] IV. 55 [place] V. 55 History of Present Illness Service Psychiatry Consult Requested By Primary Care Physician Ap Cope MD HPI The patient is a 60-year-old -Monegasque man, domiciled alone in [place], divorce, with psychiatric history of schizoaffective disorder, anxiety, polysubstance dependence including cocaine, opiates and alcohol, multiple psychiatric hospitalizations, suicide attempts by overdosing, active outpatient psychiatric care in [place], he is on bupropion 100 mg, quetiapine 25 mg and Paxil the 100 mg, with a past medical history of DM, HTN, GERD, COPD who presented in the hospital with nervousness, chest, neck, low back pain. The patient states that recently he's been having pain in his chest, neck, and lower back. He states the pain was exacerbated after smoking crack cocaine yesterday. He states that recently he's been more anxious and depressed and normal, so he is been drinking and using drugs more. Initial evaluation found Acute rhabdomyolysis: CPK 1562, likely secondary to cocaine use. Patient was consulted to psychiatry due to depressive symptoms. On psychiatric evaluation today patient became upset when he saw me in the room and stated that [facility], however after reassurance and redirection patient became more cooperative. He says that he came to the hospital because he had chest pain, he thought that he had a heart attack and for the reason he was depressed at the beginning, right now he reports good mood, he denies depressive symptoms, he denies anxiety, patient denies suicidal or homicidal ideation, denies visual and auditory hallucinations. Patient reports good compliant with medications and [facility]. He seen a psychiatrist every 3 months. He reports almost daily use of alcohol, about 2 or of Risa per day, 2 or 3 times per week use of cocaine. Review of Systems Constitutional: DENIES: Diaphoretic episodes, Fatigue, Fever, Weight gain, Weight loss, Chills, Dizziness, Change in appetite, Night Sweats Eyes: DENIES: Blurred vision, Diplopia, Eye inflammation, Eye pain, Vision loss , Photosensitivity, Double Vision Ears, nose, mouth, throat: DENIES: Tinnitus, Hearing loss, Vertigo, Nasal discharge, Oral lesions, Throat pain, Hoarseness, Ear Pain, Running Nose, Epistaxis, Sinus Pain, Toothache, Odynophagia Cardiovascular: DENIES: Chest pain, Palpitations, Syncope, Dyspnea on Exertion , PND, Lower Extremity Edema, Orthopnea, Claudication Gastrointestinal: DENIES: Abdominal pain, Black stools, Bloody stools, Constipation, Diarrhea, Nausea, Vomiting, Difficulty Swallowing, Anorexia Musculoskeletal: DENIES: Joint pain, Muscle aches, Stiffness, Joint Swelling, Back pain, Neck pain Integumentary: DENIES: Abnormal pigmentation, Nail changes, Pruritus, Rash Hematologic/lymphatic: DENIES: Bruising, Lymphadenopathy Immunologic/allergic: DENIES: Eczema, Urticaria Neurologic: DENIES: Abnormal gait, Headache, Localized weakness, Paresthesias, Seizures, Speech Problems, Tremor, Poor Balance Psychiatric: DENIES: Anxiety, Confusion, Mood changes, Depression, Hallucinations, Agitation, Suicidal Ideation, Homicidal Ideation, Delusions Past Family Social History Coded Allergies: Lisinopril (Verified Allergy, Unknown, 05/07/16) Reported Medications Hydrochlorothiazide 12.5 Mg Cap12.5 Mg PO DAILY #30 CAP Ref 0 12/15/15 Albuterol 18 GM Inh (Ventolin Hfa 18 GM Inh)90 Mcg/Act Aer2 Puff INH Q6H PRN ( SHORTNESS OF BREATH) #1 INHALER Ref 0 12/15/15 Multiple Vitamin (Multi Vitamin)1 Tab Tab1 Tab PO DAILY 12/15/15 Venlafaxine (Effexor)100 Mg [id number] Mg PO DAILY #60 TAB Ref 0 12/15/15 Trazodone HCl 100 Mg Tab1 Tab PO HS 12/15/15 Thiamine 50 Mg Cap50 Mg PO DAILY Ref 0 12/15/15 Insulin Human Isophane-Regular 70-30 Inj (Novolin 70-30 Inj)1,000 Unit/10 Ml Vial40 Units SQ BID Ref 0 12/15/15 Methocarbamol 750 Mg [id number] Mg PO HS #120 TAB Ref 0 12/15/15 Pantoprazole 20 Mg Tab20 Mg PO DAILY #30 TAB Ref 0 12/15/15 Bupropion HCl Unknown Strength TabUnknown Dose PO BID Ref 0 12/15/15 Current Medications Medications (Trade) Dose Ordered Sig/Salas Route Start Time Stop Time Status Last Admin Sodium Chloride 2 ml 2 ml UNSCH PRN IVF 05/07/16 04:45 (NS 1000 ml Inj) 1,000 ml @ 150 mls/hr Q6H40M IV 05/07/16 06:38 05/08/16 02:38 (Zofran Inj) 4 mg Q6H PRN IVP 05/07/16 06:45 (Milk Of Magnesia Liq) 30 ml Q12H PRN PO 05/07/16 06:45 (Senokot) 17.2 mg Q12H PRN PO 05/07/16 06:45 (Heparin Inj) 5,000 units Q8HR SQ 05/07/16 06:45 05/08/16 06:00 (Tylenol) 650 mg Q6H PRN PO 05/07/16 06:45 05/07/16 11:19 (D50w (Vial) Inj) 25 ml UNSCH PRN IV PUSH 05/07/16 06:45 Glucagon 1 mg 1 mg UNSCH PRN OTHER 05/07/16 06:45 (Thiamine Inj/NS Inj) 101 ml @ 101 mls/hr DAILY IV 05/07/16 09:00 05/08/16 08:33 (Ventolin Hfa Inh) 2 puff Q6H PRN INH 05/07/16 09:15 (Protonix) 20 mg DAILY PO 05/08/16 09:00 05/08/16 08:34 (Vitamin B1) 50 mg DAILY PO 05/08/16 09:00 05/08/16 08:34 (Effexor) 100 mg DAILY PO 05/07/16 09:15 05/08/16 08:33 (Desyrel) 100 mg HS PO 05/07/16 21:00 05/07/16 21:03 (Folate) 1 mg DAILY PO 05/08/16 09:00 05/13/16 08:59 05/08/16 08:34 (Theragran M Tab) 1 tab DAILY PO 05/08/16 09:00 05/13/16 08:59 05/08/16 08:34 (Catapres) 0.1 mg Q6H PRN PO 05/07/16 11:00 (Romazicon Inj) 0.2 mg Q1M PRN IV PUSH 05/07/16 10:15 (Ativan) 1 mg Q4H PRN PO 05/07/16 10:15 05/07/16 11:19 (Ativan) 2 mg Q2H PRN PO 05/07/16 10:15 (Ativan Inj) 2 mg Q1H PRN IV PUSH 05/07/16 10:15 (Ativan Inj) 2 mg Q15M PRN IV PUSH 05/07/16 10:15 (NovoLIN 70/30 INJ) 40 units BID SQ 05/07/16 21:00 05/08/16 08:43 Family History He denies family history Social History He was born and raised in [place], he lives in [place] by himself, his divorce, he has 2 kids, he says that 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 Physical Exam Psychiatric evaluation no psychomotor retardation, no EPS, no tremors, no symptomatology of withdrawal is observed Vital Signs Vital Signs Date Time Temp Pulse Resp B/P Pulse Ox O2 Delivery O2 Flow Rate FiO2 05/08/16 12:14 95 05/08/16 12:12 97.1 16 151/88 97 05/07/16 11:36 Nasal Cannula 2.00 05/07/16 11:36 21 I/O 05/07/16 05/07/16 05/08/16 08:00 16:00 00:00 Intake Total 935 ml Output Total 500 ml Balance -500 ml 935 ml Lab Results WBC 9.8, HG the 13th 0.8, HCT 42.8, NA 149, K3.9, BUN 10, creatinine 1.18, AST 29, AST 50, toxicology positive for cocaine and opiates Mental Status Examination Appearance -Monegasque man, age appearing, good hygiene, [facility], irritable, superficially cooperative Speech: Unremarkable Orientation: x3 Memory: Unremarkable Thought Process: Logical Thought Content: Unremarkable Hallucination Type: None Suicidal Ideation: No Previous Suicide Attempts: Yes Homicidal Ideation: No Previous Homicide Attempts: No Insight: Good Judgement: WNL Affect: Irritable Mood: Irritable Motor Activity: Normal gait Assessment & Plan Problem List: (1) Polysubstance dependence Assessment & Plan: The patient is a 60-year-old -Monegasque man, domiciled alone in [place], divorce, with psychiatric history of schizoaffective disorder, anxiety, polysubstance dependence including cocaine, opiates and alcohol, multiple psychiatric hospitalizations, suicide attempts by overdosing, active outpatient psychiatric care in [place], he is on bupropion 100 mg , quetiapine 25 mg and Paxil the 100 mg, with a past medical history of DM, HTN , GERD, COPD who presented in the hospital with nervousness, chest, neck, low back pain. On psychiatric evaluation today the patient is irritable, oppositional, stating that [facility]. Patient denies depressive symptoms, he denies anxiety, he denies perceptual disturbances , he denies suicidal or homicidal ideation, he denies visual and auditory hallucinations. Patient is oriented 3, no gross cognitive impairment observed , no agitation, no aggressive behavior. The patient does not meet criteria for psychiatric admission at this moment. He can continue his psychiatric care as an outpatient in [place]. recent depressive symptoms could be related with substance intoxication, also related with underlying medical condition. Extensive support , psychoeducation and motivation provided. Patient can continue current medication regimen. Consul appreciated. ICD Code: F19.20 Assessment & Plan Estimated LOS: Charly Emery MD May 08, 2016 14:55
[2016-06-08] MEDS ORDERED: BUPR75TA PO (01:40)
== END 2016-05-08 15:15 | disposition home or self-care (01) | DRG 558 ==
LOC: NEPC 04:18 → OBSVTOIN 06:38 → NEDA 06:38 → NEDH 10:14 → HOCA 14:42
PROVIDERS: ADMIT Hospitalist; ATTEND Hospitalist
DX: M62.82 Rhabdomyolysis (principal); I10 Essential (primary) hypertension; J98.11 Atelectasis; E11.9 Type 2 diabetes mellitus without complications; R07.9 Chest pain, unspecified; G47.30 Sleep apnea, unspecified; J44.9 Chronic obstructive pulmonary disease, unspecified; K21.9 Gastro-esophageal reflux disease without esophagitis; E78.00 Pure hypercholesterolemia, unspecified; F14.10 Cocaine abuse, uncomplicated; F10.10 Alcohol abuse, uncomplicated; F25.9 Schizoaffective disorder, unspecified; F17.200 Nicotine dependence, unspecified, uncomplicated; F41.8 Other specified anxiety disorders; Z79.899 Other long term (current) drug therapy
CPT/HCPCS: 71010; 80053; 80307; 82550; 82552; 82948; 83735; 84484; 85025; 85610; 85730; 93005; 94150; 96374; J1644; J1815; J2270; J3411; J7030

== ENCOUNTER 2016-06-08 00:27 | Observation (INO) | payer OTHER ==
[~2016-06-08] VITALS: Ht 172.7 cm; Wt 92.0 kg
[2016-06-08] VITALS (10 sets, daily range): BP systolic 136–170; BP diastolic 71–82; PULSE 93–108; RESP 14–22; TEMP 97.9–98.6; O2SAT 92–100
[2016-06-08] MEDS ORDERED: BUPR75TA PO ×2 (01:40)
[2016-06-08] MEDS ORDERED: SODIUM CHLORIDE 0.9% FLUSH 10 ML FLUSH IVF PRN (02:00)
[2016-06-08] MEDS ORDERED: ASPIRIN 325 MG TAB PO ONE (02:00)
[2016-06-08 02:12] LABS: AUTOMATED NEUTROPHIL # 13.8 TH/MM3 (1.8-7.7); BASOPHIL # 0.1 TH/MM3 (0-0.2); BASOPHIL % 0.7 % (0.0-2.0); EOSINOPHIL % 0.1 % (0.0-4.0); HEMO FLAGS DIFF FINAL; LYMPH % 20.1 % (9.0-44.0); LYMPHOCYTE # 3.7 TH/MM3 (1.0-4.8); MEAN CELL VOLUME 82.8 FL (80.0-100.0); MEAN CORPUSCULAR HEMOGLOBIN 27.7 PG (27.0-34.0); MEAN CORPUSCULAR HGB CONC 33.4 % (32.0-36.0); MONO % 4.2 % (0.0-8.0); NEUT % 74.9 % (16.0-70.0); PLATELET COUNT 305 TH/MM3 (150-450); RED BLOOD COUNT 5.68 MIL/MM3 (4.50-5.90); RED CELL DISTRIBUTION WIDTH 14.8 % (11.6-17.2); WHITE BLOOD COUNT 18.5 TH/MM3 (4.0-11.0)
[2016-06-08 02:21] LABS: APTT (PATIENT) 27.6 SEC (24.3-30.1); INTERNATIONAL NORMALIZED RATIO 1.1 RATIO
[2016-06-08 02:38] LABS: BICARBONATE 24.7 MEQ/L (21.0-32.0); POTASSIUM 3.5 MEQ/L (3.5-5.1)
--- NOTE | 2016-06-08 02:41 | RADRPT ---
EXAM DATE/TIME: 06/08/2016 02:15 [facility] COMPARISON: CHEST SINGLE AP, May 07, 2016, 5:21. CHEST PA & LAT, June 17, 2014, 13:21. INDICATIONS : Shortness of breath. MEDICAL HISTORY : None. SURGICAL HISTORY : None. ENCOUNTER: Initial ACUITY: 1 day PAIN SCORE: 0/10 LOCATION: Bilateral chest FINDINGS: Small lung volumes. Mild mainly perihilar infiltrates are seen, left more so than right. An area of e viviana or mild lobar consolidation is suspected in the left midlung. No large effusion. No pneumothorax . Heart size upper limits of normal. CONCLUSION: Mild bilateral perihilar and left mid lung infiltrates. Dedicated 2 view study recommended when clini courtney feasible. Corey Gurrola MD on June 08, 2016 at 2:38 Board Certified Radiologist. This report was verified electronically.
[2016-06-08] MEDS ORDERED: AZITHROMYCIN INJ 500 MG in SODIUM CHLOR 0.9% 250 ML INJ 250 ML IV ONE (03:30)
[2016-06-08] MEDS ORDERED: cefTRIAXone INJ 1,000 MG in SODIUM CHLORIDE 0.9% INJ 100 ML IV ONE (03:30)
--- NOTE | 2016-06-08 03:32 | PD ---
HPI Chief Complaint: Alcohol/Drug Intoxication Time Seen by Provider: 01:49 Travel History International Travel<30 days: No Contact w/Intl Traveler<30days: No Traveled to known affect area: No History of Present Illness HPI 60yo M with PMH of HTN, DM presents to the ED with c/o left sided chest pain after smoking crack cocaine and drinking alcohol today. States pain is left sided and pressure like. Nonradiating and with sob. Denies any fever, n/v, abdominal pain, focal weakness or numbness. PFSH Past Medical History Anxiety: Yes Depression: Yes Heart Rhythm Problems: No Cancer: No Cardiovascular Problems: Yes High Cholesterol: Yes Diabetes: Yes Patient Takes Glucophage: No Diminished Hearing: No Endocrine: Yes Gastrointestinal Disorders: Yes GERD: Yes Genitourinary: Yes Hepatitis: Yes (C) Hypertension: Yes Immune Disorder: No Implanted Vascular Access Dvce: No Musculoskeletal: No Neurologic: No Psychiatric: Yes Reproductive: No Respiratory: No Immunizations Current: Yes Sleep Apnea: Yes (CPAP) Past Surgical History Abdominal Surgery: No Cardiac Surgery: No Endocrine Surgery: No Eye Surgery: Yes (RETINA SOCKET REPAIR) Genitourinary Surgery: No Gynecologic Surgery: No Thoracic Surgery: No Other Surgery: Yes (RIGHT HAND, LEFT EYE) Social History Alcohol Use: Yes (beer daily 12 pkg) Tobacco Use: Yes (1/2 PPD) Substance Use: Yes (crack cocaine, beer, liquor) Allergies-Medications (Allergen,Severity, Reaction): Coded Allergies: Lisinopril (Verified Allergy, Unknown, 06/08/16) Reported Meds & Prescriptions Reported Meds & Active Scripts Active Reported Bupropion HCl 75 Mg Tab 150 Mg PO BID Hydrochlorothiazide 12.5 Mg Cap 12.5 Mg PO DAILY Ventolin Hfa 18 GM Inh (Albuterol Sulfate) 90 Mcg/Act Aer 2 Puff INH Q6H PRN Multi Vitamin (Multiple Vitamin) 1 Tab Tab 1 Tab PO DAILY Trazodone HCl 100 Mg Tab 1 Tab PO HS Thiamine (Thiamine HCl) 50 Mg Cap 50 Mg PO DAILY Novolin 70-30 Inj (Insulin Human Isoph/Insulin Regular) 1,000 Unit/10 Ml Vial 50 Units SQ BID Methocarbamol 750 Mg Tab 750 Mg PO HS Pantoprazole (Pantoprazole Sodium) 20 Mg Tab 20 Mg PO DAILY Review of Systems Except as stated in HPI: all other systems reviewed are Neg Physical Exam Narrative GENERAL: 60yo M not in distress. SKIN: Focused skin assessment warm/dry. HEAD: Atraumatic. Normocephalic. EYES: Pupils pinpoint and reactive. ENT: No nasal bleeding or discharge. Mucous membranes pink and moist. NECK: Trachea midline. No JVD. CARDIOVASCULAR: Regular rate and rhythm. No murmur appreciated. RESPIRATORY: No accessory muscle use. Clear to auscultation. Breath sounds equal bilaterally. GASTROINTESTINAL: Abdomen soft, non-tender, nondistended. MUSCULOSKELETAL: No obvious deformities. No clubbing. No cyanosis. No edema. NEUROLOGICAL: +AOB. Arousable and follows commands. No focal neurologic deficits. Data Data Last Documented VS Vital Signs Date Time Temp Pulse Resp B/P Pulse Ox O2 Delivery O2 Flow Rate FiO2 06/08/16 03:44 95 Room Air 06/08/16 03:44 93 20 152/81 2 06/08/16 00:29 98.0 Orders Electrocardiogram (06/08/16 01:55) Basic Metabolic Panel (Bmp) (06/08/16 01:55) Ckmb (Isoenzyme) Profile (06/08/16 01:55) Complete Blood Count With Diff (06/08/16 01:55) Magnesium (Mg) (06/08/16 01:55) Prothrombin Time / Inr (Pt) (06/08/16 01:55) Act Partial Throm Time (Ptt) (06/08/16 01:55) Troponin I (06/08/16 01:55) Chest, Single Ap (06/08/16 01:55) Ecg Monitoring (06/08/16 01:55) Bilateral Bp Monitoring (06/08/16 01:55) Iv Access Insert/Monitor (06/08/16 01:55) Oximetry (06/08/16 01:55) Oxygen Administration (06/08/16 01:55) Aspirin (Aspirin) (06/08/16 02:00) Sodium Chloride 0.9% Flush (Ns Flush) (06/08/16 02:00) Alcohol (Ethanol) (06/08/16 01:55) CKMB (06/08/16 02:00) CKMB% (06/08/16 02:00) Ceftriaxone Inj (Rocephin Inj) (06/08/16 03:30) Azithromycin Inj (Zithromax Inj) (06/08/16 03:30) Blood Culture (06/08/16 03:27) Admit Order (Ed Use Only) (06/08/16 03:45) Chest, Pa & Lat (06/08/16 ) Labs Laboratory Tests Test 06/08/16 02:00 White Blood Count 18.5 TH/MM3 Red Blood Count 5.68 MIL/MM3 Hemoglobin 15.7 GM/DL Hematocrit 47.0 % Mean Corpuscular Volume 82.8 FL Mean Corpuscular Hemoglobin 27.7 PG Mean Corpuscular Hemoglobin 33.4 % Concent Red Cell Distribution Width 14.8 % Platelet Count 305 TH/MM3 Mean Platelet Volume 7.8 FL Neutrophils (%) (Auto) 74.9 % Lymphocytes (%) (Auto) 20.1 % Monocytes (%) (Auto) 4.2 % Eosinophils (%) (Auto) 0.1 % Basophils (%) (Auto) 0.7 % Neutrophils # (Auto) 13.8 TH/MM3 Lymphocytes # (Auto) 3.7 TH/MM3 Monocytes # (Auto) 0.8 TH/MM3 Eosinophils # (Auto) 0.0 TH/MM3 Basophils # (Auto) 0.1 TH/MM3 CBC Comment DIFF FINAL Differential Comment Prothrombin Time 12.0 SEC Prothromb Time International 1.1 RATIO Ratio Activated Partial 27.6 SEC Thromboplast Time Sodium Level 135 MEQ/L Potassium Level 3.5 MEQ/L Chloride Level 102 MEQ/L Carbon Dioxide Level 24.7 MEQ/L Anion Gap 8 MEQ/L Blood Urea Nitrogen 7 MG/DL Creatinine 1.18 MG/DL Estimat Glomerular Filtration 77 ML/MIN Rate Random Glucose 208 MG/DL Calcium Level 9.0 MG/DL Magnesium Level 2.0 MG/DL Total Creatine Kinase 558 U/L Creatine Kinase MB 7.0 NG/ML Creatine Kinase MB % 1.3 % Troponin I 0.02 NG/ML Ethyl Alcohol Level 43 MG/DL [facility] Medical Decision Making Medical Screen Exam Complete: Yes Emergency Medical Condition: Yes Interpretation(s) EKG: NSR 95bpm. Normal axis. No ST segment elevation or depression. Differential Diagnosis Cocaine chest pain vs. ACS vs. pneumonia Narrative Course 60yo M with left sided chest pain after crack cocaine use today. Labs reviewed , leukocytosis at 18.5. Troponin 0.02. CPK mildly elevated at 558. Blood alcohol 43. CXR showed mild bilateral perihilar and left mid lung infiltrates. Dedicated 2 view recommended, will order. 2 view CXR showed bilateral patchy infiltrate. Pt given ceftriaxone 1gm and azithromycin 500mg IV. Pt also given aspirin 325mg PO. Will admit for pneumonia and chest pain work up. Diagnosis Primary Impression: Chest pain Qualified Code: R07.9 - Chest pain, unspecified type Additional Impression: PNA (pneumonia) Qualified Code: J18.9 - Pneumonia of both lungs due to infectious organism, unspecified part of lung Admitting Information Admitting Physician Requests: Observation Jerri Christine DO Jun 08, 2016 03:32
[2016-06-08] MEDS ORDERED: RESP: ALBUTEROL 2.5 MG/IPRATROPIUM 0.5 MG NEB (PRN) NEB (04:00)
[2016-06-08] MEDS ORDERED: ONDANSETRON HCL 4 MG/2 ML VIAL IVP PRN (04:00)
[2016-06-08] MEDS ORDERED: LORazepam 2 MG TAB PO PRN (04:00)
[2016-06-08] MEDS ORDERED: LORazepam 2 MG/ML VIAL IV PUSH PRN ×4 (04:00)
[2016-06-08] MEDS ORDERED: DEXTROSE 50% IN WATER 50 ML VIAL(D50) IV PUSH PRN (04:00)
[2016-06-08] MEDS ORDERED: FLUMAZENIL 0.5 MG/5 ML VIAL IV PUSH PRN (04:00)
[2016-06-08] MEDS ORDERED: SODIUM CHLORIDE 0.9% FLUSH 10 ML FLUSH IV FLUSH PRN (04:00)
[2016-06-08] MEDS ORDERED: ACETAMINOPHEN 325 MG TAB PO PRN (04:00)
[2016-06-08] MEDS ORDERED: NALOXONE HCL 0.4 MG/ML AMP IV PRN (04:00)
[2016-06-08] MEDS ORDERED: GLUCAGON 1 MG/ML VIAL OTHER PRN (04:00)
[2016-06-08] MEDS ORDERED: LORazepam 1 MG TAB PO PRN (04:00)
[2016-06-08] MEDS: SODIUM CHLOR 0.9% 1000 ML INJ 1,000 ML IV SCH ×3 (04:14→22:21)
--- NOTE | 2016-06-08 04:50 | RADRPT ---
EXAM DATE/TIME: 06/08/2016 04:14 [place] COMPARISON: No previous studies available for comparison. INDICATIONS : Short of breath. MEDICAL HISTORY : None. SURGICAL HISTORY : None. ENCOUNTER: Subsequent ACUITY: 1 day PAIN SCORE: 5/10 LOCATION: Bilateral chest FINDINGS: Patchy air space opacities are seen of both lungs, fairly diffuse but slightly more confluent in the left perihilar and mid lung. No effusion seen. No pneumothorax. CONCLUSION: Bilateral patchy infiltrate. Corey Gurrola MD on June 08, 2016 at 4:48 Board Certified Radiologist. This report was verified electronically.
--- NOTE | 2016-06-08 05:41 | HHI.HP ---
[facility] Admission Diagnosis Chest pain, pneumonia Diagnoses: Chief Complaint: chest pain Travel History International Travel<30 Days: No Contact w/Intl Traveler <30 Da: No Traveled to Known Affected Are: No History of Present Illness This is a 60-year-old male with a past medical history of polysubstance abuse, DM, anxiety/depression, HTN, GERD, COPD who presented with light sided chest pain after using cocaine. Patient describes the pain as a, "heaviness in my chest." Patient rates the pain 8 out of 10 earlier when it was at its worst. Chest pain was associated with shortness of breath. Patient denies radiation of the pain. Patient reports since then the pain has resolved spontaneously. Patient reports the chest pain is made worse by coughing and smoking cigarettes. Patient reports the chest pain is better with certain positions. Upon my entry to the room patient is resting comfortably in no acute distress. Patient denies any history of coronary artery disease or ME. Patient reports his has had a cough for approximately 1 week productive of yellow phlegm. Patient reports he's had, "the sweats." Patient denies fevers chills nausea vomiting diarrhea or constipation. Initial EKG reviewed and reveals: NSR 95bpm. Normal axis. No ST segment elevation or depression. Review of Systems ROS Limitations: Poor Historian Except as stated in HPI: all other systems reviewed are Neg Past Family Social History Past Medical History Diabetes mellitus Anxiety/depression Hypertension GERD COPD Past Surgical History Right orbit surgery Right hand surgery Reported Medications Bupropion HCl 75 Mg Tab 150 Mg PO BID Hydrochlorothiazide 12.5 Mg Cap 12.5 Mg PO DAILY Ventolin Hfa 18 GM Inh (Albuterol Sulfate) 90 Mcg/Act Aer 2 Puff INH Q6H PRN Multi Vitamin (Multiple Vitamin) 1 Tab Tab 1 Tab PO DAILY Trazodone HCl 100 Mg Tab 1 Tab PO HS Thiamine (Thiamine HCl) 50 Mg Cap 50 Mg PO DAILY Novolin 70-30 Inj (Insulin Human Isoph/Insulin Regular) 1,000 Unit/10 Ml Vial 50 Units SQ BID Methocarbamol 750 Mg Tab 750 Mg PO HS Pantoprazole (Pantoprazole Sodium) 20 Mg Tab 20 Mg PO DAILY Allergies: Coded Allergies: Lisinopril (Verified Allergy, Unknown, 06/08/16) Active Ordered Medications Current Medications Medications (Trade) Dose Ordered Sig/Salas Route Start Time Stop Time Status Last Admin Sodium Chloride 2 ml 2 ml UNSCH PRN IVF 06/08/16 02:00 (NS 1000 ml Inj) 1,000 ml @ 100 mls/hr Q10H IV 06/08/16 03:46 06/08/16 04:14 (NS Flush) 2 ml UNSCH PRN IV FLUSH 06/08/16 04:00 (NS Flush) 2 ml BID IV FLUSH 06/08/16 09:00 (Tylenol) 650 mg Q4H PRN PO 06/08/16 04:00 06/08/16 04:35 (Zofran Inj) 4 mg Q6H PRN IVP 06/08/16 04:00 (Lovenox Inj) 40 mg Q24H SQ 06/08/16 06:00 (Narcan Inj) 0.4 mg UNSCH PRN IV 06/08/16 04:00 Azithromycin 500 mg 500 mg DAILY PO 06/08/16 09:00 (Rocephin Inj/NS Inj) 100 ml @ 200 mls/hr Q24H IV 06/09/16 04:00 (Aspirin) 325 mg DAILY PO 06/08/16 09:00 (Folate) 1 mg DAILY PO 06/08/16 09:00 06/13/16 08:59 (Vitamin B1) 100 mg DAILY PO 06/08/16 09:00 (Romazicon Inj) 0.2 mg Q1M PRN IV PUSH 06/08/16 04:00 (Ativan) 1 mg Q4H PRN PO 06/08/16 04:00 (Ativan Inj) 1 mg Q4H PRN IV PUSH 06/08/16 04:00 (Ativan) 2 mg Q2H PRN PO 06/08/16 04:00 (Ativan Inj) 2 mg Q2H PRN IV PUSH 06/08/16 04:00 (Ativan Inj) 2 mg Q1H PRN IV PUSH 06/08/16 04:00 (Ativan Inj) 2 mg Q15M PRN IV PUSH 06/08/16 04:00 (D50w (Vial) Inj) 25 ml UNSCH PRN IV PUSH 06/08/16 04:00 (Glucagon Inj) 1 mg UNSCH PRN OTHER 06/08/16 04:00 (Wellbutrin) 150 mg BID PO 06/08/16 09:00 (Microzide) 12.5 mg DAILY PO 06/08/16 09:00 (Protonix) 20 mg DAILY PO 06/08/16 09:00 (Desyrel) 100 mg HS PO 06/08/16 21:00 Family History Patient ports his mother at 63 secondary to enlarged heart Patient reports his father at 35 of a ME Social History Drinks 12 pack of beer daily Smokes crack cocaine every other day Smokes about 1 pack tobacco daily Physical Exam Vital Signs Vital Signs Date Time Temp Pulse Resp B/P Pulse Ox O2 Delivery O2 Flow Rate FiO2 06/08/16 05:07 18 06/08/16 03:54 97 Nasal Cannula 2.00 06/08/16 03:44 95 Room Air 06/08/16 03:44 93 20 152/81 97 Nasal Cannula 2 06/08/16 03:43 97 Nasal Cannula 2 06/08/16 01:33 97 Room Air 06/08/16 00:29 98.0 104 16 141/71 96 Physical Exam GENERAL: This is a well-nourished, well-developed patient, in no apparent distress. SKIN: No rashes, ecchymoses or lesions. Cool and dry. HEAD: Atraumatic. Normocephalic. No temporal or scalp tenderness. EYES: Extraocular motions intact. No scleral icterus. No injection or drainage. CARDIOVASCULAR: Regular rate and rhythm without murmurs, gallops, or rubs. RESPIRATORY: Clear to auscultation. Breath sounds equal bilaterally. No wheezes , rales, or rhonchi. GASTROINTESTINAL: Abdomen soft, non-tender, nondistended. MUSCULOSKELETAL: Extremities without clubbing, cyanosis, or edema. No joint tenderness, effusion, or edema noted. No calf tenderness. Negative Homans sign bilaterally. NEUROLOGICAL: Awake and alert. No focal deficits appreciated. Motor and sensory grossly within normal limits. Five out of 5 muscle strength in all muscle groups. Normal speech. Laboratory Laboratory Tests Test 06/08/16 02:00 White Blood Count 18.5 Red Blood Count 5.68 Hemoglobin 15.7 Hematocrit 47.0 Mean Corpuscular Volume 82.8 Mean Corpuscular Hemoglobin 27.7 Mean Corpuscular Hemoglobin 33.4 Concent Red Cell Distribution Width 14.8 Platelet Count 305 Mean Platelet Volume 7.8 Neutrophils (%) (Auto) 74.9 Lymphocytes (%) (Auto) 20.1 Monocytes (%) (Auto) 4.2 Eosinophils (%) (Auto) 0.1 Basophils (%) (Auto) 0.7 Neutrophils # (Auto) 13.8 Lymphocytes # (Auto) 3.7 Monocytes # (Auto) 0.8 Eosinophils # (Auto) 0.0 Basophils # (Auto) 0.1 CBC Comment DIFF FINAL Differential Comment Prothrombin Time 12.0 Prothromb Time International 1.1 Ratio Activated Partial 27.6 Thromboplast Time Sodium Level 135 Potassium Level 3.5 Chloride Level 102 Carbon Dioxide Level 24.7 Anion Gap 8 Blood Urea Nitrogen 7 Creatinine 1.18 Estimat Glomerular Filtration 77 Rate Random Glucose 208 Calcium Level 9.0 Magnesium Level 2.0 Total Creatine Kinase 558 Creatine Kinase MB 7.0 Creatine Kinase MB % 1.3 Troponin I 0.02 Ethyl Alcohol Level 43 Date/Time Procedure Status Source Growth 06/08/16 04:00 Aerobic Blood Culture Received Blood Peripheral Pending 06/08/16 04:00 Anaerobic Blood Culture Received Blood Peripheral Pending Result Diagram: 06/08/16 0200 06/08/16 020 Assessment and Plan Problem List: (1) Chest pain ICD Code: R07.9 Status: Acute (2) PNA (pneumonia) ICD Code: J18.9 Status: Acute (3) Polysubstance dependence ICD Code: F19.20 Status: Chronic Assessment and Plan This is a 60-year-old male with a past medical history of polysubstance abuse, DM, anxiety/depression, HTN, GERD, COPD who presented with light sided chest pain after using cocaine. Chest pain rule out ACS Serial troponin serial EKGs aspirin daily lipid profile in a.m. nitroglycerin paste every 6 hours titrate oxygen as needed 2-D echocardiogram ordered and pending Community acquired pneumonia Chest x-ray reviewed by myself and reveals mild bilateral perihilar and left mid lobe infiltrates 2-D chest x-ray ordered and pending Titrate oxygen as needed Patient started on azithromycin and Rocephin in the emergency department will continue Do nebs every 6 hours and as needed Diabetes mellitus Accu-Cheks before meals at bedtime with sliding scale insulin coverage Polysubstance abuse patient counseled encouraged to abstain CIWA protocol with thiamine and folic acid supplementation Stable chronic conditions include hypertension GERD and COPD we'll continue home medications DVT prophylaxis with Lovenox Discussed with a provider, nursing and patient Nabila Ramos Jun 08, 2016 05:41
[2016-06-08] MEDS: ENOXAPARIN SODIUM 40 MG/0.4 ML SYRINGE SQ SCH (05:49)
[2016-06-08] MEDS: INSULIN ASPART SUPPLEMENTAL SCALE SQ SCH ×4 (05:50→21:00)
[2016-06-08] MEDS: NITROGLYCERIN 2% OINT 1 GM PACKET TOPICAL SCH ×4 (06:35→23:22)
[2016-06-08] MEDS: RESP: ALBUTEROL 2.5 MG/IPRATROPIUM 0.5 MG NEB (SCH) NEB ×3 (07:13→19:23)
[2016-06-08] MEDS: FOLIC ACID 1 MG TAB PO SCH (10:54)
[2016-06-08] MEDS: SODIUM CHLORIDE 0.9% FLUSH 10 ML FLUSH IV FLUSH SCH ×2 (10:54→20:51)
[2016-06-08] MEDS: buPROPion HCL 75 MG TAB PO SCH ×2 (10:54→21:35)
[2016-06-08] MEDS: ASPIRIN 325 MG TAB PO SCH (10:54)
[2016-06-08] MEDS: HYDROCHLOROTHIAZIDE 12.5 MG CAP PO SCH (10:54)
[2016-06-08] MEDS: PANTOPRAZOLE SOD 20 MG DELAYED RELEASE TAB PO SCH (10:55)
[2016-06-08] MEDS: AZITHROMYCIN 250 MG TAB PO SCH (10:55)
[2016-06-08] MEDS: THIAMINE HCL 100 MG TAB PO SCH (10:55)
[2016-06-08 14:30] LABS: HDL CHOLESTEROL 32.9 MG/DL (40.0-60.0)
[2016-06-08 16:01] LABS: CKMB 4.4 NG/ML (0.5-3.6)
--- NOTE | 2016-06-08 18:37 | EKG ---
Date Performed: 06/08/2016 Time Performed: 08:12:56 PTAGE: 60 years EKG: Sinus rhythm NORMAL ECG PREVIOUS TRACING : 06/08/2016 03.41 Compared to prior tracing no significant change DOCTOR: Gely Goodman Interpretating Date/Time 06/08/2016 18:35:48
--- NOTE | 2016-06-08 18:40 | EKG ---
Date Performed: 06/08/2016 Time Performed: 03:41:36 PTAGE: 60 years EKG: Sinus rhythm NORMAL ECG PREVIOUS TRACING : 05/07/2016 04.27 Compared to prior tracing no significant change DOCTOR: Gely Goodman Interpretating Date/Time 06/08/2016 18:39:53
[2016-06-08 20:30] LABS: CREATINE KINASE 283 U/L (39-308)
[2016-06-08 20:43] LABS: CKMB 3.1 NG/ML (0.5-3.6)
[2016-06-08] MEDS ORDERED: traZODone HCL 100 MG TAB PO SCH (21:00)
[2016-06-09 01:07] VITALS: BP 162/93; PULSE 67; RESP 16; TEMP 98.5; O2SAT 94
[2016-06-09] MEDS ORDERED: cefTRIAXone INJ 1,000 MG in SODIUM CHLORIDE 0.9% INJ 100 ML IV SCH (04:00)
[2016-06-09 04:30] VITALS: BP 131/68; PULSE 84; RESP 18; TEMP 98.4; O2SAT 98
[2016-06-09] MEDS: ENOXAPARIN SODIUM 40 MG/0.4 ML SYRINGE SQ SCH (05:05)
[2016-06-09] MEDS: NITROGLYCERIN 2% OINT 1 GM PACKET TOPICAL SCH (05:05)
[2016-06-09] MEDS: INSULIN ASPART SUPPLEMENTAL SCALE SQ SCH (07:00)
[2016-06-09 07:24] LABS: AUTOMATED NEUTROPHIL # 9.5 TH/MM3 (1.8-7.7); BASOPHIL # 0.1 TH/MM3 (0-0.2); BASOPHIL % 0.8 % (0.0-2.0); EOSINOPHIL # 0.1 TH/MM3 (0-0.4); EOSINOPHIL % 0.8 % (0.0-4.0); HEMO FLAGS DIFF FINAL; LYMPH % 19.1 % (9.0-44.0); LYMPHOCYTE # 2.5 TH/MM3 (1.0-4.8); MEAN CELL VOLUME 83.4 FL (80.0-100.0); MEAN CORPUSCULAR HGB CONC 32.4 % (32.0-36.0); NEUT % 72.3 % (16.0-70.0); PLATELET COUNT 279 TH/MM3 (150-450); RED BLOOD COUNT 5.27 MIL/MM3 (4.50-5.90); RED CELL DISTRIBUTION WIDTH 14.8 % (11.6-17.2); WHITE BLOOD COUNT 13.1 TH/MM3 (4.0-11.0)
[2016-06-09 07:39] VITALS: PULSE 91
[2016-06-09 07:42] VITALS: O2SAT 96
[2016-06-09] MEDS: RESP: ALBUTEROL 2.5 MG/IPRATROPIUM 0.5 MG NEB (SCH) NEB (07:42)
[2016-06-09 08:01] LABS: BICARBONATE 24.7 MEQ/L (21.0-32.0); POTASSIUM 3.9 MEQ/L (3.5-5.1)
[2016-06-09] MEDS: SODIUM CHLORIDE 0.9% FLUSH 10 ML FLUSH IV FLUSH SCH (08:35)
[2016-06-09] MEDS: buPROPion HCL 75 MG TAB PO SCH (08:36)
[2016-06-09] MEDS: ASPIRIN 325 MG TAB PO SCH (08:36)
[2016-06-09] MEDS: HYDROCHLOROTHIAZIDE 12.5 MG CAP PO SCH (08:36)
[2016-06-09] MEDS: PANTOPRAZOLE SOD 20 MG DELAYED RELEASE TAB PO SCH (08:36)
[2016-06-09] MEDS: THIAMINE HCL 100 MG TAB PO SCH (08:36)
[2016-06-09] MEDS: AZITHROMYCIN 250 MG TAB PO SCH (08:36)
[2016-06-09] MEDS: FOLIC ACID 1 MG TAB PO SCH (08:36)
[2016-06-09 08:38] VITALS: BP 138/68; PULSE 112; RESP 20; TEMP 98.3; O2SAT 95
[2016-06-09 08:52] VITALS: BP 137/78; PULSE 89; PULSE 92; RESP 16; TEMP 98.1; O2SAT 95
[2016-06-09] MEDS ORDERED: PNEUMOCOCCAL POLYVALENT INJ 25 MCG/0.5 ML SYR IM ONE (10:00)
--- NOTE | 2016-06-09 10:08 | HHI.PR ---
Subjective Remarks Follow up for chest pain, cocaine abuse, pneumonia. The patient is found in the bathroom smoking a cigarette this morning. He has no medical complaints. Denies any current chest pains, resolved since his arrival. Denies shortness of breath. He states he did have a cough with brown mucus prior to arrival, denies any hemoptysis. His cough has now improved. He denies fevers/chills. [facility] Objective Vitals Vital Signs Date Time Temp Pulse Resp B/P Pulse Ox O2 Delivery O2 Flow Rate FiO2 06/09/16 08:52 98.1 92 16 06/09/16 08:52 98.1 89 16 137/78 95 06/09/16 08:38 98.3 112 20 138/68 95 06/09/16 07:42 96 21 06/09/16 07:39 91 06/09/16 04:30 98.4 84 18 131/68 98 06/09/16 01:07 98.5 67 16 162/93 94 06/08/16 20:02 98.0 97 22 170/81 97 06/08/16 19:25 92 06/08/16 15:41 98.2 103 20 164/79 95 06/08/16 12:23 97.9 94 14 143/82 100 Result Diagram: 06/09/16 0555 06/09/16 0555 Imaging Last Impressions Chest X-Ray 06/08/16 0155 Signed Impressions: Service Date/Time: Wednesday, June 08, 2016 02:15 - CONCLUSION: Mild bilateral perihilar and left mid lung infiltrates. Dedicated 2 view study recommended when clinically feasible. Corey Gurrola MD Objective Remarks GENERAL: Well-nourished, well-developed middle aged AA male patient in [facility]. SKIN: Warm and dry. No rash. HEENT: Normocephalic. Atraumatic. Pupils equal and round. Mucous membranes pink and moist. NECK: Supple. Trachea midline. CARDIOVASCULAR: Regular rate and rhythm. S1, S2 noted. No murmur appreciated. RESPIRATORY: No accessory muscle use. Clear to auscultation. Breath sounds equal bilaterally. GASTROINTESTINAL: Abdomen soft, non-tender, nondistended. Normoactive bowel sounds x4. MUSCULOSKELETAL: No obvious deformities. Extremities without clubbing, cyanosis , or edema. NEUROLOGICAL: Awake and alert. No obvious cranial nerve deficits. Motor grossly within normal limits. 5/5 muscle strength in bilateral upper and lower extremities. Normal speech. PSYCHIATRIC: Appropriate mood and affect; insight and judgment normal. Medications and IVs Current Medications Medications (Trade) Dose Ordered Sig/Salas Route Start Time Stop Time Status Last Admin Sodium Chloride 2 ml 2 ml UNSCH PRN IVF 06/08/16 02:00 (NS 1000 ml Inj) 1,000 ml @ 100 mls/hr Q10H IV 06/08/16 03:46 06/08/16 13:08 (NS Flush) 2 ml UNSCH PRN IV FLUSH 06/08/16 04:00 (NS Flush) 2 ml BID IV FLUSH 06/08/16 09:00 06/08/16 10:54 (Tylenol) 650 mg Q4H PRN PO 06/08/16 04:00 06/08/16 04:35 (Zofran Inj) 4 mg Q6H PRN IVP 06/08/16 04:00 (Lovenox Inj) 40 mg Q24H SQ 06/08/16 06:00 06/09/16 05:05 (Narcan Inj) 0.4 mg UNSCH PRN IV 06/08/16 04:00 Azithromycin 500 mg 500 mg DAILY PO 06/08/16 09:00 06/09/16 08:36 (Rocephin Inj/NS Inj) 100 ml @ 200 mls/hr Q24H IV 06/09/16 04:00 06/09/16 03:41 (Aspirin) 325 mg DAILY PO 06/08/16 09:00 06/09/16 08:36 (Folate) 1 mg DAILY PO 06/08/16 09:00 06/13/16 08:59 06/09/16 08:36 (Vitamin B1) 100 mg DAILY PO 06/08/16 09:00 06/09/16 08:36 (Romazicon Inj) 0.2 mg Q1M PRN IV PUSH 06/08/16 04:00 (Ativan) 1 mg Q4H PRN PO 06/08/16 04:00 06/09/16 08:36 (Ativan Inj) 1 mg Q4H PRN IV PUSH 06/08/16 04:00 (Ativan) 2 mg Q2H PRN PO 06/08/16 04:00 06/08/16 16:54 (Ativan Inj) 2 mg Q2H PRN IV PUSH 06/08/16 04:00 (Ativan Inj) 2 mg Q1H PRN IV PUSH 06/08/16 04:00 (Ativan Inj) 2 mg Q15M PRN IV PUSH 06/08/16 04:00 (D50w (Vial) Inj) 25 ml UNSCH PRN IV PUSH 06/08/16 04:00 (Glucagon Inj) 1 mg UNSCH PRN OTHER 06/08/16 04:00 (Wellbutrin) 150 mg BID PO 06/08/16 09:00 06/09/16 08:36 (Microzide) 12.5 mg DAILY PO 06/08/16 09:00 06/09/16 08:36 (Protonix) 20 mg DAILY PO 06/08/16 09:00 06/09/16 08:36 (Desyrel) 100 mg HS PO 06/08/16 21:00 (Nitroglycerin 2% Oint) 0.5 inch Q6HR TOPICAL 06/08/16 06:00 06/09/16 05:05 (Pneumovax-23 Inj) 25 mcg ONCE ONCE IM 06/09/16 10:00 06/09/16 10:01 A/P Problem List: (1) Chest pain ICD Code: R07.9 Status: Acute (2) PNA (pneumonia) ICD Code: J18.9 Status: Acute (3) Polysubstance dependence ICD Code: F19.20 Status: Chronic Assessment and Plan 60-year-old male with a past medical history of polysubstance abuse, DM, anxiety /depression, HTN, GERD, COPD who presented with light sided chest pain after using cocaine. Atypical Chest pain: suspect secondary to cocaine abuse. ACS ruled out with negative serial cardiac enzymes x3 and EKG without acute ischemic changes. Continue aspirin daily Avoid BB with cocaine use lipid profile with elevated triglycerides, recommend patient initiate diet control and start taking fish oils nitroglycerin paste prn, titrate oxygen as needed Chest pain resolved, strongly suspect related to cocaine use. Community acquired pneumonia Chest x-ray reviewed by myself and reveals mild bilateral perihilar and left mid lobe infiltrates patient is stable on room air Continued on azithromycin and Rocephin Duonebs prn Will discharge on Ceftin/Azithro Diabetes mellitus Accu-Cheks before meals at bedtime with sliding scale insulin coverage Continue patient's 70/30 50u bid Polysubstance abuse patient counseled encouraged to abstain CIWA protocol with thiamine and folic acid supplementation Stable chronic conditions include hypertension GERD and COPD we'll continue home medications DVT prophylaxis with Lovenox Discussed with Dr. You, range manager Planning Discharge patient to home Condition on discharge: Improved Heart Healthy/Diabetic Diet as tolerated Ad Rosemarie activity Rx written: Ceftin, Azithro, aspirin, fish oils Follow-up with primary care physician within 1 week Problem Qualifiers (1) Chest pain: Qualified Code: R07.9 - Chest pain, unspecified type (2) PNA (pneumonia): Qualified Code: J18.9 - Pneumonia of both lungs due to infectious organism, unspecified part of lung Leonor Vee PA-C June 09, 2016 10:07 am
[2016-06-09] MEDS ORDERED: AZIT500T2 PO (10:09)
[2016-06-09] MEDS ORDERED: CEFU1TAB20 PO (10:09)
[2016-06-09] MEDS ORDERED: FISHCAP4 PO (10:09)
[2016-06-09] MEDS ORDERED: ASPI81TA11 PO (10:09)
--- NOTE | 2016-06-09 10:10 | HHI.DCPOC ---
Discharge Care Plan Diagnosis: (1) Chest pain (2) PNA (pneumonia) (3) Diabetes (4) Alcohol abuse (5) Cocaine abuse, unspecified (6) Hypertriglyceridemia (7) Hypertension Goals to Promote Your Health * To prevent worsening of your condition and complications * To maintain your health at the optimal level Directions to Meet Your Goals Take your medications as prescribed Follow your dietary instruction Follow activity as directed Keep your appointments as scheduled Take your immunizations and boosters as scheduled If your symptoms worsen call your PCP, if no PCP go to Urgent Care Center or Emergency Room Smoking is Dangerous to Your Health. Avoid second hand smoke Call the 24-hour hour crisis hotline for domestic abuse at Leonor Vee PA-C June 09, 2016 10:10 am
--- NOTE | 2016-06-09 23:06 | EKG ---
Date Performed: 06/08/2016 Time Performed: 14:30:33 PTAGE: 60 years EKG: Sinus rhythm NORMAL ECG PREVIOUS TRACING : 06/08/2016 08.12 Compared to prior tracing no significant change DOCTOR: Bill Pereira Interpretating Date/Time 06/09/2016 23:03:51
== END 2016-06-09 11:43 | disposition home or self-care (01) ==
LOC: NEPE 00:27 → NEDA 03:46 → NEPFCDU 09:14
PROVIDERS: ADMIT Internal Medicine; ATTEND Internal Medicine
DX: R07.9 Chest pain, unspecified (principal); J18.9 Pneumonia, unspecified organism; I10 Essential (primary) hypertension; E11.9 Type 2 diabetes mellitus without complications; F41.9 Anxiety disorder, unspecified; E78.00 Pure hypercholesterolemia, unspecified; K21.9 Gastro-esophageal reflux disease without esophagitis; G47.30 Sleep apnea, unspecified; F17.210 Nicotine dependence, cigarettes, uncomplicated; F10.20 Alcohol dependence, uncomplicated; Z79.899 Other long term (current) drug therapy; Z79.4 Long term (current) use of insulin; Y90.2 Blood alcohol level of 40-59 mg/100 ml; J44.0 Chronic obstructive pulmonary disease with (acute) lower respiratory infection; F32.9 Major depressive disorder, single episode, unspecified; F14.10 Cocaine abuse, uncomplicated; F19.20 Other psychoactive substance dependence, uncomplicated; E78.1 Pure hyperglyceridemia; B19.20 Unspecified viral hepatitis C without hepatic coma
CPT/HCPCS: 71010; 71020; 80048; 80061; 80307; 82550; 82552; 82948; 83735; 84484; 85025; 85610; 85730; 87040; 93005; 94640; 94664; 99285; G0378; J0456; J0696; J1650; J1815; J7030; J7050

== ENCOUNTER 2016-06-11 22:55 | Emergency (ER) | payer OTHER ==
[~2016-06-11 22:55] MED LIST changes: +ASPI81TA11 PO; +AZIT500T2 PO; +CEFU1TAB20 PO; +FISHCAP4 PO
[2016-06-11 23:03] VITALS: BP 144/67; PULSE 107; RESP 18; TEMP 98.2; O2SAT 97
[2016-06-12 01:12] VITALS: BP 125/70; PULSE 96; RESP 18; O2SAT 97
[2016-06-12] MEDS ORDERED: SODIUM CHLOR 0.9% 1000 ML INJ 1,000 ML IV SCH (01:20)
[2016-06-12] MEDS ORDERED: SODIUM CHLORIDE 0.9% FLUSH 10 ML FLUSH IV FLUSH PRN (01:30)
--- NOTE | 2016-06-12 01:30 | PD ---
HPI Chief Complaint: Alcohol/Drug Intoxication Time Seen by Provider: 01:15 Travel History International Travel<30 days: No Contact w/Intl Traveler<30days: No Traveled to known affect area: No History of Present Illness HPI 60-year-old male with history of alcohol abuse, cocaine use, recent admission on 06/08/16 for pneumonia, discharged on 06/09/16 with Ceftin and azithromycin, back for evaluation of cough, episode of epistaxis, and cough productive of blackish sputum. Patient admits to drinking alcohol throughout the day today as well as smoking crack cocaine. He is concerned about his pneumonia. He states that he has been taking his antibiotics, last dose was this morning. No chest pain. No abdominal pain. Patient is requesting something to eat. PFSH Past Medical History Asthma: No (allergies/ pt uses albuterol) Blood Disorders: No Anxiety: Yes Depression: Yes Heart Rhythm Problems: No Cancer: No Cardiovascular Problems: Yes High Cholesterol: Yes Chest Pain: Yes (with coughing) Congestive Heart Failure: No COPD: No Diabetes: Yes Patient Takes Glucophage: No Diminished Hearing: No Endocrine: Yes Gastrointestinal Disorders: Yes GERD: Yes Genitourinary: Yes Hepatitis: Yes (C) Hypertension: Yes Immune Disorder: No Implanted Vascular Access Dvce: No Musculoskeletal: No Neurologic: No Psychiatric: Yes Reproductive: No Respiratory: No Immunizations Current: Yes Sleep Apnea: Yes (CPAP) Thyroid Disease: No (can't remember) Influenza Vaccination: Yes Past Surgical History Abdominal Surgery: No Cardiac Surgery: No Endocrine Surgery: No Eye Surgery: Yes (RETINA SOCKET REPAIR) Genitourinary Surgery: No Gynecologic Surgery: No Thoracic Surgery: No Other Surgery: Yes (RIGHT HAND, RIGHT EYE) Social History Alcohol Use: Yes (beer daily 8 pkg) Tobacco Use: Yes (1 PPD) Substance Use: Yes (crack cocaine, beer, liquor) Allergies-Medications (Allergen,Severity, Reaction): Coded Allergies: Lisinopril (Verified Allergy, Unknown, 06/12/16) Reported Meds & Prescriptions Reported Meds & Active Scripts Active Azithromycin 500 Mg Tab 500 Mg PO DAILY Cefuroxime (Cefuroxime Axetil) 500 Mg Tab 500 Mg PO BID Aspirin EC (Aspirin) 81 Mg Tabdr 81 Mg PO DAILY Reported Bupropion HCl 75 Mg Tab 150 Mg PO BID Hydrochlorothiazide 12.5 Mg Cap 12.5 Mg PO DAILY Ventolin Hfa 18 GM Inh (Albuterol Sulfate) 90 Mcg/Act Aer 2 Puff INH Q6H PRN Multi Vitamin (Multiple Vitamin) 1 Tab Tab 1 Tab PO DAILY Trazodone HCl 100 Mg Tab 1 Tab PO HS Thiamine (Thiamine HCl) 50 Mg Cap 50 Mg PO DAILY Novolin 70-30 Inj (Insulin Human Isoph/Insulin Regular) 1,000 Unit/10 Ml Vial 50 Units SQ BID Methocarbamol 750 Mg Tab 750 Mg PO HS Pantoprazole (Pantoprazole Sodium) 20 Mg Tab 20 Mg PO DAILY Review of Systems Except as stated in HPI: all other systems reviewed are Neg Physical Exam Narrative GENERAL: Well-developed, well-nourished, comfortable, no acute distress. SKIN: Focused skin assessment warm/dry. HEAD: Atraumatic. Normocephalic. EYES: Pupils equal and round. Bilateral scleral injection. ENT: Mucous membranes pink and moist. NECK: Trachea midline. No JVD. CARDIOVASCULAR: Regular rate and rhythm. No murmur appreciated. RESPIRATORY: No accessory muscle use. Clear to auscultation. Breath sounds equal bilaterally. GASTROINTESTINAL: Abdomen soft, non-tender, nondistended. MUSCULOSKELETAL: No obvious deformities. No clubbing. No cyanosis. No edema. NEUROLOGICAL: Awake and alert. No obvious cranial nerve deficits. Motor grossly within normal limits. Normal speech. PSYCHIATRIC: Appears intoxicated. Data Data Last Documented VS Vital Signs Date Time Temp Pulse Resp B/P Pulse Ox O2 Delivery O2 Flow Rate FiO2 06/12/16 05:14 86 18 134/78 98 Room Air 06/11/16 23:03 98.2 Orders Basic Metabolic Panel (Bmp) (06/12/16 01:20) Complete Blood Count With Diff (06/12/16 01:20) Iv Access Insert/Monitor (06/12/16 01:20) Ecg Monitoring (06/12/16 01:20) Oximetry (06/12/16 01:20) Sodium Chlor 0.9% 1000 Ml Inj (Ns 1000 M (06/12/16 01:20) Sodium Chloride 0.9% Flush (Ns Flush) (06/12/16 01:30) Creatine Kinase (Cpk) (06/12/16 01:20) Alcohol (Ethanol) (06/12/16 01:20) Chest, Single Ap (06/12/16 ) CKMB (06/12/16 01:38) CKMB% (06/12/16 01:38) Sodium Chlor 0.9% 1000 Ml Inj (Ns 1000 M (06/12/16 02:45) Creatine Kinase (Cpk) (06/12/16 04:00) CKMB (06/12/16 03:55) CKMB% (06/12/16 03:55) Sodium Chlor 0.9% 1000 Ml Inj (Ns 1000 M (06/12/16 05:15) Sodium Chlor 0.9% 1000 Ml Inj (Ns 1000 M (06/12/16 05:15) Creatine Kinase (Cpk) (06/12/16 06:00) CKMB (06/12/16 06:08) CKMB% (06/12/16 06:08) Labs Laboratory Tests Test 06/12/16 06/12/16 06/12/16 01:38 03:55 06:08 White Blood Count 14.7 TH/MM3 Red Blood Count 5.66 MIL/MM3 Hemoglobin 15.9 GM/DL Hematocrit 46.1 % Mean Corpuscular Volume 81.5 FL Mean Corpuscular Hemoglobin 28.2 PG Mean Corpuscular Hemoglobin 34.6 % Concent Red Cell Distribution Width 14.6 % Platelet Count 292 TH/MM3 Mean Platelet Volume 7.3 FL Neutrophils (%) (Auto) 62.9 % Lymphocytes (%) (Auto) 28.6 % Monocytes (%) (Auto) 6.8 % Eosinophils (%) (Auto) 0.4 % Basophils (%) (Auto) 1.3 % Neutrophils # (Auto) 9.2 TH/MM3 Lymphocytes # (Auto) 4.2 TH/MM3 Monocytes # (Auto) 1.0 TH/MM3 Eosinophils # (Auto) 0.1 TH/MM3 Basophils # (Auto) 0.2 TH/MM3 CBC Comment DIFF FINAL Differential Comment Sodium Level 137 MEQ/L Potassium Level 3.6 MEQ/L Chloride Level 103 MEQ/L Carbon Dioxide Level 25.9 MEQ/L Anion Gap 8 MEQ/L Blood Urea Nitrogen 9 MG/DL Creatinine 1.30 MG/DL Estimat Glomerular Filtration 68 ML/MIN Rate Random Glucose 118 MG/DL Calcium Level 9.0 MG/DL Total Creatine Kinase 1321 U/L 1391 U/L 1053 U/L Creatine Kinase MB 13.2 NG/ML 11.0 NG/ML Creatine Kinase MB % 1.0 % 0.8 % Ethyl Alcohol Level 9 MG/DL [facility] Medical Decision Making Medical Screen Exam Complete: Yes Emergency Medical Condition: Yes Medical Record Reviewed: Yes Differential Diagnosis Alcohol intoxication, polysubstance abuse, pneumonia, bronchitis, dehydration, metabolic abnormality Narrative Course Initial vital signs showed a heart rate of 107 which improved to 92 after a liter of normal saline IV. Blood pressure 144/67, pulse ox 98% on room air, oral temp of 98.2F. CBC is remarkable for WBC 14.7, otherwise unremarkable. BMP is unremarkable. Total CK is 1321. Alcohol level is 9. Chest x-ray: Cardiomegaly. No acute cardiopulmonary disease. Patient was given a second liter of normal saline IV, and repeat CK is 1391. He was given 2 more liters of normal saline and it has come down to 1053. Patient is tolerating clear liquids in the emergency department and has urinated several times. Patient was made aware of all findings. He is resting comfortably. At this point I believe he is stable for discharge home with outpatient follow-up with his primary care physician in the next 2-3 days. I told him that he needs to stop using cocaine, and informed him of the dangers of using cocaine. He was informed to stay hydrated with plenty of fluids. He was informed on when to return to the emergency department. He verbalizes understanding and agreement with plan. Diagnosis Primary Impression: Cocaine abuse, unspecified Additional Impressions: Alcohol abuse Elevated creatine kinase Referrals: Primary Care Physician 3 days Additional Instructions: Follow-up with your primary care physician in the next 2-3 days. Stay hydrated with plenty of fluids. Return to the emergency department for worsening symptoms or any other concerns. Disposition: 01 DISCHARGE HOME Kwaku De Guzman MD June 12, 2016 01:30
[2016-06-12 01:45] LABS: AUTOMATED NEUTROPHIL # 9.2 TH/MM3 (1.8-7.7); BASOPHIL # 0.2 TH/MM3 (0-0.2); BASOPHIL % 1.3 % (0.0-2.0); EOSINOPHIL # 0.1 TH/MM3 (0-0.4); EOSINOPHIL % 0.4 % (0.0-4.0); HEMATOCRIT 46.1 % (39.0-51.0); HEMO FLAGS DIFF FINAL; LYMPH % 28.6 % (9.0-44.0); LYMPHOCYTE # 4.2 TH/MM3 (1.0-4.8); MEAN CELL VOLUME 81.5 FL (80.0-100.0); MEAN CORPUSCULAR HEMOGLOBIN 28.2 PG (27.0-34.0); MEAN CORPUSCULAR HGB CONC 34.6 % (32.0-36.0); MONO % 6.8 % (0.0-8.0); NEUT % 62.9 % (16.0-70.0); PLATELET COUNT 292 TH/MM3 (150-450); RED BLOOD COUNT 5.66 MIL/MM3 (4.50-5.90); RED CELL DISTRIBUTION WIDTH 14.6 % (11.6-17.2); WHITE BLOOD COUNT 14.7 TH/MM3 (4.0-11.0)
--- NOTE | 2016-06-12 01:49 | RADRPT ---
EXAM DATE/TIME: 06/12/2016 01:34 [facility] COMPARISON: CHEST SINGLE AP, June 08, 2016, 2:15. INDICATIONS : Chest pain. MEDICAL HISTORY : None. SURGICAL HISTORY : None. ENCOUNTER: Initial ACUITY: 1 day PAIN SCORE: 6/10 LOCATION: Bilateral chest FINDINGS: The cardiac silhouette is enlarged in transverse diameter. The lungs are free of acute parenchymal op acity. No effusions are identified. Osseous structures are intact. CONCLUSION: Cardiomegaly. No acute cardiopulmonary disease. Tre Valencia MD on June 12, 2016 at 1:48 Board Certified Radiologist. This report was verified electronically.
[2016-06-12 01:52] VITALS: RESP 18; O2SAT 100
[2016-06-12 02:12] LABS: BICARBONATE 25.9 MEQ/L (21.0-32.0); POTASSIUM 3.6 MEQ/L (3.5-5.1)
[2016-06-12 02:42] LABS: CKMB 13.2 NG/ML (0.5-3.6)
[2016-06-12] MEDS ORDERED: SODIUM CHLOR 0.9% 1000 ML INJ 1,000 ML IV ONE ×3 (02:45→05:15)
[2016-06-12 03:41] VITALS: BP 166/77; PULSE 92; RESP 18; O2SAT 98
[2016-06-12 05:14] VITALS: BP 134/78; PULSE 86; RESP 18; O2SAT 98
[2016-06-12 07:25] LABS: CKMB 11.4 NG/ML (0.5-3.6)
[2016-06-12 08:09] VITALS: BP 138/76; PULSE 90; RESP 18; O2SAT 98
== END 2016-06-12 08:10 | disposition home or self-care (01) ==
LOC: NEPC 22:55
DX: F14.10 Cocaine abuse, uncomplicated (principal); F10.10 Alcohol abuse, uncomplicated; R79.89 Other specified abnormal findings of blood chemistry; R07.9 Chest pain, unspecified; I51.7 Cardiomegaly; E78.00 Pure hypercholesterolemia, unspecified; E11.9 Type 2 diabetes mellitus without complications; K21.9 Gastro-esophageal reflux disease without esophagitis; I10 Essential (primary) hypertension; G47.30 Sleep apnea, unspecified; F17.210 Nicotine dependence, cigarettes, uncomplicated; Z79.4 Long term (current) use of insulin
CPT/HCPCS: 71010; 80048; 80307; 82550; 82552; 85025; 96360; 96361; 99284; J7030

== ENCOUNTER 2016-06-23 12:50 | Emergency (ER) | payer OTHER ==
[~2016-06-23 12:50] MED LIST changes: -FISHCAP4 PO; -VENL100T PO
[2016-06-23 12:52] VITALS: BP 153/70; PULSE 100; RESP 20; TEMP 98.4; O2SAT 98
--- NOTE | 2016-06-23 13:56 | PD ---
Physical Exam Date Seen by Provider: June 23, 2016 Time Seen by Provider: 13:47 Narrative 60 y/o male with reports of suicidal ideation. Patient Voluntary. Recent ETOH and Crack at 4 am this am. Feels dehydrated. C/O pain in hands and feet, "really bad". Has Hx Diabetic neuropathy. No specific plan. Patient feels lethargic. B/S is 239 V/S Stable Awaiting Bed Placement. Data Data Last Documented VS Vital Signs Date Time Temp Pulse Resp B/P Pulse Ox O2 Delivery O2 Flow Rate FiO2 06/23/16 12:52 98.4 100 20 153/70 98 Room Air [facility] Medical Record Reviewed: Yes Supervised Visit with REINA: Yes Condition: Stable Lorenzo Noel June 23, 2016 13:56
--- NOTE | 2016-06-23 19:15 | PD ---
HPI Chief Complaint: Psychiatric Symptoms Time Seen by Provider: 19:14 Travel History International Travel<30 days: No Contact w/Intl Traveler<30days: No Traveled to known affect area: No History of Present Illness HPI 60-year-old male came to the emergency room for suicidal thoughts as a voluntary but brought by police. Patient called the suicide help line today through [place]. The person who he spoke with called 911 since she was concerned. Patient continues to be suicidal. He claims to have done cocaine and alcohol earlier this morning. Vital signs were otherwise stable. [facility] Past Medical History Narrative Medical List of his past medical, surgical, social and family history was reviewed from the nursing note. Asthma: No (allergies/ pt uses albuterol) Blood Disorders: No Anxiety: Yes Depression: Yes Heart Rhythm Problems: No Cancer: No Cardiovascular Problems: Yes (htn) High Cholesterol: Yes Chest Pain: Yes (with coughing) Congestive Heart Failure: No COPD: No Diabetes: Yes Diminished Hearing: No Endocrine: Yes Gastrointestinal Disorders: Yes GERD: Yes Genitourinary: Yes Hepatitis: Yes (C) Hypertension: Yes Immune Disorder: No Implanted Vascular Access Dvce: No Musculoskeletal: No Neurologic: No Psychiatric: Yes Reproductive: No Respiratory: No Immunizations Current: Yes Sleep Apnea: Yes (CPAP) Thyroid Disease: No (can't remember) Past Surgical History Abdominal Surgery: No Cardiac Surgery: No Endocrine Surgery: No Eye Surgery: Yes (RETINA SOCKET REPAIR) Genitourinary Surgery: No Gynecologic Surgery: No Thoracic Surgery: No Other Surgery: Yes (RIGHT HAND, RIGHT EYE) Social History Alcohol Use: Yes (beer daily 8 pkg) Tobacco Use: Yes (1 PPD) Substance Use: Yes (crack cocaine, beer, liquor) Allergies-Medications (Allergen,Severity, Reaction): Coded Allergies: Lisinopril (Verified Allergy, Unknown, 06/23/16) Comments Reviewed from the nursing note. Reported Meds & Prescriptions Reported Meds & Active Scripts Active Azithromycin 500 Mg Tab 500 Mg PO DAILY Cefuroxime (Cefuroxime Axetil) 500 Mg Tab 500 Mg PO BID Aspirin EC (Aspirin) 81 Mg Tabdr 81 Mg PO DAILY Reported Bupropion HCl 75 Mg Tab 150 Mg PO BID Hydrochlorothiazide 12.5 Mg Cap 12.5 Mg PO DAILY Ventolin Hfa 18 GM Inh (Albuterol Sulfate) 90 Mcg/Act Aer 2 Puff INH Q6H PRN Multi Vitamin (Multiple Vitamin) 1 Tab Tab 1 Tab PO DAILY Trazodone HCl 100 Mg Tab 1 Tab PO HS Thiamine (Thiamine HCl) 50 Mg Cap 50 Mg PO DAILY Novolin 70-30 Inj (Insulin Human Isoph/Insulin Regular) 1,000 Unit/10 Ml Vial 50 Units SQ BID Methocarbamol 750 Mg Tab 750 Mg PO HS Pantoprazole (Pantoprazole Sodium) 20 Mg Tab 20 Mg PO DAILY Narrative Medication List of his home medications reviewed from the nursing note. Review of Systems Except as stated in HPI: all other systems reviewed are Neg Physical Exam Narrative GENERAL: Awake, alert, no obvious distress SKIN: Focused skin assessment warm/dry. HEAD: Atraumatic. Normocephalic. EYES: Pupils equal and round. No scleral icterus. No injection or drainage. ENT: No nasal bleeding or discharge. Mucous membranes pink and moist. NECK: Trachea midline. No JVD. CARDIOVASCULAR: Regular rate and rhythm. No murmur appreciated. RESPIRATORY: No accessory muscle use. Clear to auscultation. Breath sounds equal bilaterally. GASTROINTESTINAL: Abdomen soft, non-tender, nondistended. Hepatic and splenic margins not palpable. MUSCULOSKELETAL: No obvious deformities. No clubbing. No cyanosis. No edema. NEUROLOGICAL: Awake and alert. No obvious cranial nerve deficits. Motor grossly within normal limits. Normal speech. PSYCHIATRIC: Appropriate mood and affect; insight and judgment normal. Data Data Last Documented VS Vital Signs Date Time Temp Pulse Resp B/P Pulse Ox O2 Delivery O2 Flow Rate FiO2 06/24/16 13:16 91 18 157/65 97 Room Air 06/24/16 10:19 96.7 Orders Complete Blood Count With Diff (06/23/16 19:19) Comprehensive Metabolic Panel (06/23/16 19:19) Psych Screen (06/23/16 19:19) Drug Screen, Random Urine (06/23/16 19:19) Alcohol (Ethanol) (06/23/16 19:19) Insulin Human Regular Inj (Novolin R Inj (06/23/16 20:45) Blood Glucose (06/23/16 20:41) Diet Regular Basic (06/24/16 Breakfast) Labs Laboratory Tests Test 06/23/16 06/23/16 19:31 21:33 White Blood Count 9.0 TH/MM3 Red Blood Count 5.51 MIL/MM3 Hemoglobin 15.5 GM/DL Hematocrit 45.7 % Mean Corpuscular Volume 82.9 FL Mean Corpuscular Hemoglobin 28.0 PG Mean Corpuscular Hemoglobin 33.8 % Concent Red Cell Distribution Width 14.4 % Platelet Count 281 TH/MM3 Mean Platelet Volume 7.7 FL Neutrophils (%) (Auto) 49.8 % Lymphocytes (%) (Auto) 38.2 % Monocytes (%) (Auto) 9.3 % Eosinophils (%) (Auto) 1.7 % Basophils (%) (Auto) 1.0 % Neutrophils # (Auto) 4.5 TH/MM3 Lymphocytes # (Auto) 3.4 TH/MM3 Monocytes # (Auto) 0.8 TH/MM3 Eosinophils # (Auto) 0.2 TH/MM3 Basophils # (Auto) 0.1 TH/MM3 CBC Comment DIFF FINAL Differential Comment Sodium Level 135 MEQ/L Potassium Level 3.5 MEQ/L Chloride Level 100 MEQ/L Carbon Dioxide Level 26.6 MEQ/L Anion Gap 8 MEQ/L Blood Urea Nitrogen 9 MG/DL Creatinine 1.20 MG/DL Estimat Glomerular Filtration 75 ML/MIN Rate Random Glucose 253 MG/DL Calcium Level 8.4 MG/DL Total Bilirubin 0.2 MG/DL Aspartate Amino Transf 38 U/L (AST/SGOT) Alanine Aminotransferase 46 U/L (ALT/SGPT) Alkaline Phosphatase 104 U/L Total Protein 6.7 GM/DL Albumin 3.0 GM/DL Ethyl Alcohol Level LESS THAN 3 MG/DL Urine Opiates Screen NEG Urine Barbiturates Screen NEG Urine Amphetamines Screen NEG Urine Benzodiazepines Screen NEG Urine Cocaine Screen POS Urine Cannabinoids Screen NEG MDM Medical Decision Making Medical Screen Exam Complete: Yes Emergency Medical Condition: Yes Medical Record Reviewed: Yes Differential Diagnosis Depression, suicidal ideation, substance abuse Narrative Course 7:22 PM awaiting for the blood test results for medical clearance. Eventually he would require psych screen. I am signing the [place] act paper work on this patient. 8:40 PM blood test results are back. His blood sugar is elevated. I've ordered 10 units of subcutaneous regular insulin. Patient is a diabetic. I medically cleared him at this point. There is a repeat blood glucose in an hour. Procedures EKG Prior to Arrival: No Condition: Stable Christin Palomares MD June 23, 2016 19:15
[2016-06-23 19:17] VITALS: BP 161/82; PULSE 98; RESP 24; O2SAT 98
[2016-06-23 19:56] LABS: AUTOMATED NEUTROPHIL # 4.5 TH/MM3 (1.8-7.7); BASOPHIL # 0.1 TH/MM3 (0-0.2); EOSINOPHIL # 0.2 TH/MM3 (0-0.4); EOSINOPHIL % 1.7 % (0.0-4.0); HEMATOCRIT 45.7 % (39.0-51.0); HEMO FLAGS DIFF FINAL; LYMPH % 38.2 % (9.0-44.0); LYMPHOCYTE # 3.4 TH/MM3 (1.0-4.8); MEAN CELL VOLUME 82.9 FL (80.0-100.0); MEAN CORPUSCULAR HGB CONC 33.8 % (32.0-36.0); MONO % 9.3 % (0.0-8.0); NEUT % 49.8 % (16.0-70.0); PLATELET COUNT 281 TH/MM3 (150-450); RED BLOOD COUNT 5.51 MIL/MM3 (4.50-5.90); RED CELL DISTRIBUTION WIDTH 14.4 % (11.6-17.2)
[2016-06-23 20:18] LABS: ANION GAP 8 MEQ/L (5-15)
[2016-06-23 20:22] LABS: ALKALINE PHOSPHATASE 104 U/L (45-117); ALT (GPT) 46 U/L (12-78); AST (GOT) 38 U/L (15-37); BICARBONATE 26.6 MEQ/L (21.0-32.0); BLOOD UREA NITROGEN 9 MG/DL (7-18); CHLORIDE 100 MEQ/L (98-107); GLOMERULAR FILTRATION RATE 75 ML/MIN (>89); POTASSIUM 3.5 MEQ/L (3.5-5.1); SODIUM (NA) 135 MEQ/L (136-145); TOTAL BILIRUBIN ADULT 0.2 MG/DL (0.2-1.0)
[2016-06-23] MEDS ORDERED: INSULIN HUMAN REGULAR 1,000 UNITS/10 ML VIAL SQ ONE (20:45)
[2016-06-23 22:05] LABS: AMPHETAMINE, URINE NEG (NEG); BARBITURATES, URINE NEG (NEG); COCAINE, URINE POS (NEG)
[2016-06-24 07:15] VITALS: BP 148/99; PULSE 84; RESP 17; O2SAT 97
--- NOTE | 2016-06-24 09:39 | PD ---
History of Present Illness Chief Complaint: Psychiatric Symptoms Time Seen by Provider: 09:50 Travel History International Travel<30 Days: No Contact w/Intl Traveler<30days: No Known affected area: No Legal Status Legal Status: [place] Act [place] Act Signed By: POLLO REY MD [facility] History of Present Illness: History of Present Illness HPI 60-year-old male with history of substance use disorder who came to the emergency room f as a voluntary but brought by police with reported suicidal ideation. Patient called the suicide help line today through [place]. The person who he spoke with called 911 since she was concerned for his safety. Patient upon arrival to Ed reported continued suicidal ideation and was placed under a BA. Patient was monitored in main ED as well as in J pod. He presented with no behavioral concerns and no suicidality. Current toxicology is positive for cocaine . He has been evaluated in ED on April 12, June 08 as well as June 12 and he has admitted to use of both cocaine as well as alcohol. He tells me that he went to [facility] last month and was there for 2 weeks. Patient is awake, alert and oriented. Speech is clear and logical. There is no indication that he is experiencing any psychosis. No adela. He is vague regarding current symptomatology and states ' I just need to have my physical health as well as my mental health adjusted". He does not endorse any suicidal or homicidal ideation, intent or plan. he has not been medication compliant. Receives psychiatric care at the [place]. [facility] Past Medical History Blood Disorders: No Anxiety: Yes Depression: Yes Heart Rhythm Problems: No Cancer: No Cardiovascular Problems: Yes (htn) High Cholesterol: Yes Chest Pain: Yes (with coughing) Congestive Heart Failure: No COPD: No Diabetes: Yes Patient Takes Glucophage: No Diminished Hearing: No Endocrine: Yes Gastrointestinal Disorders: Yes GERD: Yes Genitourinary: Yes Hepatitis: Yes (C) Hypertension: Yes Immune Disorder: No Implanted Vascular Access Dvce: No Musculoskeletal: No Neurologic: No Psychiatric: Yes Reproductive: No Respiratory: No Immunizations Current: Yes Sleep Apnea: Yes (CPAP) Past Surgical History Abdominal Surgery: No Cardiac Surgery: No Endocrine Surgery: No Eye Surgery: Yes (RETINA SOCKET REPAIR) Genitourinary Surgery: No Gynecologic Surgery: No Thoracic Surgery: No Other Surgery: Yes (RIGHT HAND, RIGHT EYE) Psychiatric History Psychiatric History Hx Psychiatric Treatment: [facility] last month. History of Inpatient Treatment: Yes Guns or firearms in home: No Social History Single male. Homeless. Hx Alcohol Use: Yes (beer daily 8 pkg) Hx Tobacco Use: Yes (1 PPD) Hx Substance Use: Yes (crack cocaine, beer, liquor) Substance Use Type: Alcohol, Nicotine/Cigarettes, Cocaine Hx of Substance Use Treatment: Yes Family Psychiatric History Negative Allergies-Medications (Allergen,Severity, Reaction): Coded Allergies: Lisinopril (Verified Allergy, Unknown, 06/23/16) Reported Meds & Prescriptions Reported Meds & Active Scripts Active Azithromycin 500 Mg Tab 500 Mg PO DAILY Cefuroxime (Cefuroxime Axetil) 500 Mg Tab 500 Mg PO BID Aspirin EC (Aspirin) 81 Mg Tabdr 81 Mg PO DAILY Reported Bupropion HCl 75 Mg Tab 150 Mg PO BID Hydrochlorothiazide 12.5 Mg Cap 12.5 Mg PO DAILY Ventolin Hfa 18 GM Inh (Albuterol Sulfate) 90 Mcg/Act Aer 2 Puff INH Q6H PRN Multi Vitamin (Multiple Vitamin) 1 Tab Tab 1 Tab PO DAILY Trazodone HCl 100 Mg Tab 1 Tab PO HS Thiamine (Thiamine HCl) 50 Mg Cap 50 Mg PO DAILY Novolin 70-30 Inj (Insulin Human Isoph/Insulin Regular) 1,000 Unit/10 Ml Vial 50 Units SQ BID Methocarbamol 750 Mg Tab 750 Mg PO HS Pantoprazole (Pantoprazole Sodium) 20 Mg Tab 20 Mg PO DAILY Review of Systems Constitutional: DENIES: Diaphoretic episodes, Fatigue, Fever, Weight gain, Weight loss, Chills, Dizziness, Change in appetite, Night Sweats Endocrine: DENIES: Heat/cold intolerance, Polydipsia, Polyuria, Polyphagia Eyes: DENIES: Blurred vision, Diplopia, Eye inflammation, Eye pain, Vision loss , Photosensitivity, Double Vision Ears, nose, mouth, throat: DENIES: Tinnitus, Hearing loss, Vertigo, Nasal discharge, Oral lesions, Throat pain, Hoarseness, Ear Pain, Running Nose, Epistaxis, Sinus Pain, Toothache, Odynophagia Respiratory: DENIES: Apneas, Cough, Snoring, Wheezing, Hemoptysis, Sputum production, Shortness of breath Cardiovascular: DENIES: Chest pain, Palpitations, Syncope, Dyspnea on Exertion , PND, Lower Extremity Edema, Orthopnea, Claudication Gastrointestinal: DENIES: Abdominal pain, Black stools, Bloody stools, Constipation, Diarrhea, Nausea, Vomiting, Difficulty Swallowing, Anorexia Genitourinary: DENIES: Sexual dysfunction, Urinary frequency, Urinary incontinence, Urgency, Hematuria, Dysuria, Nocturia, Penile Discharge, Testicular Pain, Testicular Swelling Musculoskeletal: COMPLAINS OF: Back pain Integumentary: DENIES: Abnormal pigmentation, Nail changes, Pruritus, Rash Hematologic/lymphatic: DENIES: Bruising, Lymphadenopathy Immunologic/allergic: DENIES: Eczema, Urticaria Neurologic: DENIES: Abnormal gait, Headache, Localized weakness, Paresthesias, Seizures, Speech Problems, Tremor, Poor Balance Psychiatric: DENIES: Anxiety, Confusion, Mood changes, Depression, Hallucinations, Agitation, Suicidal Ideation, Homicidal Ideation, Delusions Exam Alert: Yes [place]: Person (ox4) Mood: Calm Affect: Appropriate Speech: Clear, Logical Eye Contact: Indirect Memory Intact: Comment (not impaired) Hallucinations: Other (negative) Delusions: No Suicidal: Ideation (deneis any) Homicidal: Ideation (deneis any) Insight/Judgement Poor. Poor. MDM Medical Decision Making Medical Record Reviewed: Yes Assessment/Plan 60 year old male with a history of substance use disorder who presents to ED with reported suicidal ideation. Patient had been using cocaine and became worried that he was having medical issues. Patient was monitored in secure environment . he presented no suicidality. He requested discharge as he needed to take care of some financial problems. At this time he does not meet BA criteria. Counseled on abstinence. Follow up with the [place] Orders Complete Blood Count With Diff (06/23/16 19:19) Comprehensive Metabolic Panel (06/23/16 19:19) Psych Screen (06/23/16 19:19) Drug Screen, Random Urine (06/23/16 19:19) Alcohol (Ethanol) (06/23/16 19:19) Insulin Human Regular Inj (Novolin R Inj (06/23/16 20:45) Blood Glucose (06/23/16 20:41) Diet Regular Basic (06/24/16 Breakfast) Results Vital Signs Date Time Temp Pulse Resp B/P Pulse Ox O2 Delivery O2 Flow Rate FiO2 06/24/16 07:15 84 17 148/99 97 Room Air 06/23/16 19:17 98 24 161/82 98 Room Air 06/23/16 12:52 98.4 100 20 153/70 98 Room Air Laboratory Tests Test 06/23/16 06/23/16 19:31 21:33 White Blood Count 9.0 Red Blood Count 5.51 Hemoglobin 15.5 Hematocrit 45.7 Mean Corpuscular Volume 82.9 Mean Corpuscular Hemoglobin 28.0 Mean Corpuscular Hemoglobin 33.8 Concent Red Cell Distribution Width 14.4 Platelet Count 281 Mean Platelet Volume 7.7 Neutrophils (%) (Auto) 49.8 Lymphocytes (%) (Auto) 38.2 Monocytes (%) (Auto) 9.3 Eosinophils (%) (Auto) 1.7 Basophils (%) (Auto) 1.0 Neutrophils # (Auto) 4.5 Lymphocytes # (Auto) 3.4 Monocytes # (Auto) 0.8 Eosinophils # (Auto) 0.2 Basophils # (Auto) 0.1 CBC Comment DIFF FINAL Differential Comment Sodium Level 135 Potassium Level 3.5 Chloride Level 100 Carbon Dioxide Level 26.6 Anion Gap 8 Blood Urea Nitrogen 9 Creatinine 1.20 Estimat Glomerular Filtration 75 Rate Random Glucose 253 Calcium Level 8.4 Total Bilirubin 0.2 Aspartate Amino Transf 38 (AST/SGOT) Alanine Aminotransferase 46 (ALT/SGPT) Alkaline Phosphatase 104 Total Protein 6.7 Albumin 3.0 Ethyl Alcohol Level LESS THAN 3 Urine Opiates Screen NEG Urine Barbiturates Screen NEG Urine Amphetamines Screen NEG Urine Benzodiazepines Screen NEG Urine Cocaine Screen POS Urine Cannabinoids Screen NEG Diagnosis Primary Impression: Cocaine abuse Additional Impression: Substance induced mood disorder Psychiatrically Cleared: Yes Med/ Other Pt Specific Info: No Meds Exist/No RX given Disposition: 01 DISCHARGE HOME Condition: Stable Problem Qualifiers Geovanna Weber June 24, 2016 09:39
[2016-06-24 10:19] VITALS: BP 157/65; PULSE 91; RESP 18; TEMP 96.7; O2SAT 97
[2016-06-24 13:16] VITALS: BP 157/65; PULSE 91; RESP 18; O2SAT 97
== END 2016-06-24 13:58 | disposition home or self-care (01) ==
LOC: NEPD 12:50 → NEPJ 06-24 13:58
DX: F14.10 Cocaine abuse, uncomplicated (principal); F19.94 Other psychoactive substance use, unspecified with psychoactive substance-induced mood disorder; E11.9 Type 2 diabetes mellitus without complications; R45.851 Suicidal ideations; I10 Essential (primary) hypertension; E78.00 Pure hypercholesterolemia, unspecified; G47.30 Sleep apnea, unspecified; F17.200 Nicotine dependence, unspecified, uncomplicated; Z79.4 Long term (current) use of insulin; Z86.59 Personal history of other mental and behavioral disorders; Z86.79 Personal history of other diseases of the circulatory system; Z87.19 Personal history of other diseases of the digestive system; Z87.448 Personal history of other diseases of urinary system; Z86.19 Personal history of other infectious and parasitic diseases
CPT/HCPCS: 80053; 80307; 85025; 99283; J1815

== ENCOUNTER 2016-07-05 07:50 | Observation (INO) | payer OTHER ==
[2016-07-05] VITALS (9 sets, daily range): BP systolic 153–180; BP diastolic 72–92; PULSE 77–94; RESP 12–21; TEMP 98.1–99; O2SAT 97–100
[~2016-07-05] VITALS: Ht 172.7 cm; Wt 88.0 kg
--- NOTE | 2016-07-05 08:09 | PD ---
HPI Chief Complaint: Chest Pain Time Seen by Provider: 08:04 Travel History International Travel<30 days: No Contact w/Intl Traveler<30days: No Traveled to known affect area: No History of Present Illness HPI Is a frequent visitor to the ER. He is an alcoholic and smokes crack cocaine frequently. He developed some left upper chest pain this morning. Then he decided to smoke some crack cocaine and then called 911 to report his chest pain. He comes in drowsy and lethargic, fairly useless to provide any medical history or review of systems. PFSH Past Medical History Hx Anticoagulant Therapy: Yes (ASPIRIN) Blood Disorders: No Anxiety: Yes Depression: Yes Heart Rhythm Problems: No Cancer: No Cardiovascular Problems: Yes (HTN) High Cholesterol: Yes Chest Pain: Yes (with coughing) Congestive Heart Failure: No COPD: No Diabetes: Yes Diminished Hearing: No Endocrine: Yes Gastrointestinal Disorders: Yes GERD: Yes Genitourinary: Yes Hepatitis: Yes (C) Hypertension: Yes Immune Disorder: No Implanted Vascular Access Dvce: No Musculoskeletal: No Neurologic: No Psychiatric: Yes Reproductive: No Respiratory: No Immunizations Current: Yes Sleep Apnea: Yes (CPAP) Past Surgical History Abdominal Surgery: No Cardiac Surgery: No Endocrine Surgery: No Eye Surgery: Yes (RETINA SOCKET REPAIR) Genitourinary Surgery: No Gynecologic Surgery: No Thoracic Surgery: No Other Surgery: Yes (RIGHT HAND, RIGHT EYE) Social History Alcohol Use: Yes (beer daily 8 pkg) Tobacco Use: Yes (1 PPD) Substance Use: Yes (crack cocaine, beer, liquor) Allergies-Medications (Allergen,Severity, Reaction): Coded Allergies: Lisinopril (Verified Allergy, Unknown, 07/05/16) Reported Meds & Prescriptions Reported Meds & Active Scripts Active Aspirin EC (Aspirin) 81 Mg Tabdr 81 Mg PO DAILY Reported Bupropion HCl 75 Mg Tab 150 Mg PO BID Hydrochlorothiazide 12.5 Mg Cap 12.5 Mg PO DAILY Ventolin Hfa 18 GM Inh (Albuterol Sulfate) 90 Mcg/Act Aer 2 Puff INH Q6H PRN Novolin 70-30 Inj (Insulin Human Isoph/Insulin Regular) 1,000 Unit/10 Ml Vial 50 Units SQ BID Methocarbamol 750 Mg Tab 750 Mg PO HS Review of Systems ROS Limitations: Clinical Condition, Altered Mental Status, Poor Historian Physical Exam Narrative GENERAL: Well-nourished, well-developed patient in no apparent distress. SKIN: Focused skin assessment reveals no rash and nodules. Skin is Warm and dry. HEAD: Atraumatic. Normocephalic. EYES: Pupils equal and round. No scleral icterus. No injection or drainage. ENT: No nasal bleeding or discharge. Mucous membranes pink and moist. NECK: Trachea midline. No JVD. CARDIOVASCULAR: Regular rate and rhythm. No murmur appreciated. RESPIRATORY: No accessory muscle use. Clear to auscultation. Breath sounds equal bilaterally. GASTROINTESTINAL: Abdomen soft, non-tender, nondistended. Hepatic and splenic margins not palpable. MUSCULOSKELETAL: No obvious deformities. No clubbing. No cyanosis. No edema. NEUROLOGICAL: Awakens to voice but drowsy. No obvious cranial nerve deficits. Motor grossly within normal limits. Normal speech. PSYCHIATRIC: Drowsy/lethargic mood and flat affect; insight and judgment poor. Data Data Last Documented VS Vital Signs Date Time Temp Pulse Resp B/P Pulse Ox O2 Delivery O2 Flow Rate FiO2 07/05/16 10:06 90 14 153/85 97 Room Air 07/05/16 08:01 98.1 Orders Electrocardiogram (07/05/16 ) Electrocardiogram (07/05/16 08:04) Basic Metabolic Panel (Bmp) (07/05/16 08:04) Ckmb (Isoenzyme) Profile (07/05/16 08:04) Complete Blood Count With Diff (07/05/16 08:04) Prothrombin Time / Inr (Pt) (07/05/16 08:04) Act Partial Throm Time (Ptt) (07/05/16 08:04) Troponin I (07/05/16 08:04) Chest, Single Ap (07/05/16 08:04) Ecg Monitoring (07/05/16 08:04) Iv Access Insert/Monitor (07/05/16 08:04) Oximetry (07/05/16 08:04) Aspirin (Aspirin) (07/05/16 08:15) Sodium Chloride 0.9% Flush (Ns Flush) (07/05/16 08:15) Alcohol (Ethanol) (07/05/16 08:04) CKMB (07/05/16 08:12) CKMB% (07/05/16 08:12) Admit Order (Ed Use Only) (07/05/16 10:39) Labs Laboratory Tests Test 07/05/16 08:12 White Blood Count 9.1 TH/MM3 Red Blood Count 5.61 MIL/MM3 Hemoglobin 15.8 GM/DL Hematocrit 46.8 % Mean Corpuscular Volume 83.5 FL Mean Corpuscular Hemoglobin 28.1 PG Mean Corpuscular Hemoglobin 33.7 % Concent Red Cell Distribution Width 14.1 % Platelet Count 262 TH/MM3 Mean Platelet Volume 7.6 FL Neutrophils (%) (Auto) 59.3 % Lymphocytes (%) (Auto) 29.6 % Monocytes (%) (Auto) 9.5 % Eosinophils (%) (Auto) 0.7 % Basophils (%) (Auto) 0.9 % Neutrophils # (Auto) 5.4 TH/MM3 Lymphocytes # (Auto) 2.7 TH/MM3 Monocytes # (Auto) 0.9 TH/MM3 Eosinophils # (Auto) 0.1 TH/MM3 Basophils # (Auto) 0.1 TH/MM3 CBC Comment DIFF FINAL Differential Comment Prothrombin Time 12.0 SEC Prothromb Time International 1.1 RATIO Ratio Activated Partial 27.4 SEC Thromboplast Time Sodium Level 138 MEQ/L Potassium Level 3.4 MEQ/L Chloride Level 103 MEQ/L Carbon Dioxide Level 24.3 MEQ/L Anion Gap 11 MEQ/L Blood Urea Nitrogen 9 MG/DL Creatinine 1.12 MG/DL Estimat Glomerular Filtration 81 ML/MIN Rate Random Glucose 211 MG/DL Calcium Level 8.3 MG/DL Total Creatine Kinase 577 U/L Creatine Kinase MB 6.7 NG/ML Creatine Kinase MB % 1.2 % Troponin I 0.08 NG/ML Ethyl Alcohol Level 65 MG/DL [facility] Medical Decision Making Medical Screen Exam Complete: Yes Emergency Medical Condition: Yes Medical Record Reviewed: Yes Differential Diagnosis Differential diagnosis includes [place], angina, pericarditis, pleurisy, GERD, anxiety. Narrative Course I have reviewed the patient's electronic medical record. Patient's been here multiple times this month for drug related and psychiatric related issues. Has not had any recent cardiac testing Was hospitalized 12 days ago for chest pain but had no stress test He has multiple risk factors for cardiac disease. He is a diabetic. IV placed I reviewed the EKG which shows sinus rhythm but no ST elevation I reviewed the chest x-ray which shows hypoinflation but no acute finding Extended cardiac monitoring shows sinus rhythm without ectopy CBC is normal Metabolic profile is normal CK shows normal MB percent, total CK 344 Troponin is 0.08 Coagulation studies are normal I gave him an aspirin. Obviously avoiding beta blockade given his cocaine use. Alcohol level is 65 Call has been placed to hospitalist to review. He will be a 23 hour observation on telemetry to rule out cardiac cause of his symptoms. He was recently hospitalized for chest pain but did not have stress testing. Diagnosis Primary Impression: Chest pain Qualified Code: R07.89 - Other chest pain Additional Impression: Cocaine abuse, unspecified Admitting Information Admitting Physician Requests: Deyvi Diaz MD July 05, 2016 08:09
[2016-07-05] MEDS ORDERED: SODIUM CHLORIDE 0.9% FLUSH 10 ML FLUSH IVF PRN (08:15)
[2016-07-05] MEDS ORDERED: ASPIRIN 325 MG TAB PO ONE (08:15)
[2016-07-05 08:26] LABS: AUTOMATED NEUTROPHIL # 5.4 TH/MM3 (1.8-7.7); BASOPHIL # 0.1 TH/MM3 (0-0.2); BASOPHIL % 0.9 % (0.0-2.0); EOSINOPHIL # 0.1 TH/MM3 (0-0.4); EOSINOPHIL % 0.7 % (0.0-4.0); HEMATOCRIT 46.8 % (39.0-51.0); HEMO FLAGS DIFF FINAL; LYMPH % 29.6 % (9.0-44.0); LYMPHOCYTE # 2.7 TH/MM3 (1.0-4.8); MEAN CELL VOLUME 83.5 FL (80.0-100.0); MEAN CORPUSCULAR HEMOGLOBIN 28.1 PG (27.0-34.0); MEAN CORPUSCULAR HGB CONC 33.7 % (32.0-36.0); MONO % 9.5 % (0.0-8.0); NEUT % 59.3 % (16.0-70.0); PLATELET COUNT 262 TH/MM3 (150-450); RED BLOOD COUNT 5.61 MIL/MM3 (4.50-5.90); RED CELL DISTRIBUTION WIDTH 14.1 % (11.6-17.2); WHITE BLOOD COUNT 9.1 TH/MM3 (4.0-11.0)
[2016-07-05 08:35] LABS: APTT (PATIENT) 27.4 SEC (24.3-30.1); INTERNATIONAL NORMALIZED RATIO 1.1 RATIO
--- NOTE | 2016-07-05 08:46 | RADRPT ---
EXAM DATE/TIME: 07/05/2016 08:24 [facility] COMPARISON: CHEST SINGLE AP, June 12, 2016, 1:34. INDICATIONS : Chest pain. MEDICAL HISTORY : Hypertension. Diabetes mellitus type II. SURGICAL HISTORY : None. ENCOUNTER: Initial ACUITY: 2 days PAIN SCORE: 5/10 LOCATION: Bilateral chest FINDINGS: Portable AP view of the chest demonstrates a normal-sized cardiac silhouette. No effusion, consolidat ion, or pneumothorax is visualized. The bones and soft tissues demonstrate no acute abnormality. Lung s are underinflated with mild atelectasis at the bases. CONCLUSION: Underinflated examination. No acute cardiopulmonary abnormality is identified. Corey Ayala MD on July 05, 2016 at 8:44 Board Certified Radiologist. This report was verified electronically.
[2016-07-05 09:04] LABS: BICARBONATE 24.3 MEQ/L (21.0-32.0); POTASSIUM 3.4 MEQ/L (3.5-5.1)
[2016-07-05 09:24] LABS: CKMB 6.7 NG/ML (0.5-3.6)
[2016-07-05] MEDS ORDERED: SODIUM CHLOR 0.45% 1000 ML INJ 1,000 ML IV SCH (11:18)
[2016-07-05] MEDS ORDERED: BISACODYL 10 MG SUPP RECTAL PRN (11:30)
[2016-07-05] MEDS ORDERED: SENNOSIDES 8.6 MG TAB PO PRN (11:30)
[2016-07-05] MEDS ORDERED: SODIUM CHLORIDE 0.9% FLUSH 10 ML FLUSH IV FLUSH PRN (11:30)
[2016-07-05] MEDS ORDERED: MAGNESIUM HYDROXIDE SUSP 30 ML CUP PO PRN (11:30)
[2016-07-05] MEDS ORDERED: NALOXONE HCL 0.4 MG/ML AMP IV PRN (11:30)
[2016-07-05] MEDS ORDERED: LACTULOSE SYRUP 20 GM/30 ML CUP PO PRN (11:30)
[2016-07-05] MEDS ORDERED: ALBUTEROL SULFATE 90 MCG/ACT HFA 18 GM INHALER INH PRN (11:30)
[2016-07-05 12:29] LABS: AMPHETAMINE, URINE NEG (NEG); BARBITURATES, URINE NEG (NEG); COCAINE, URINE POS (NEG)
[2016-07-05] MEDS ORDERED: POTASSIUM CHLORIDE 20 MEQ CONTROLLED RELEASE TAB PO ONE (14:00)
[2016-07-05] MEDS ORDERED: LORazepam 1 MG TAB PO PRN (14:15)
[2016-07-05] MEDS ORDERED: cloNIDine HCL 0.1 MG TAB PO PRN (14:15)
[2016-07-05] MEDS ORDERED: LORazepam 2 MG/ML VIAL IV PUSH PRN ×2 (14:15)
[2016-07-05] MEDS ORDERED: LORazepam 2 MG TAB PO PRN (14:15)
[2016-07-05] MEDS ORDERED: ONDANSETRON HCL 4 MG/2 ML VIAL IV PRN (14:15)
[2016-07-05] MEDS ORDERED: FLUMAZENIL 0.5 MG/5 ML VIAL IV PUSH PRN (14:15)
--- NOTE | 2016-07-05 14:25 | HHI.HP ---
HPI Service [facility] Primary Care Physician Ap Cope MD Admission Diagnosis chest pain Diagnoses: Chief Complaint: Chest pain Travel History International Travel<30 Days: No Contact w/Intl Traveler <30 Da: No Traveled to Known Affected Are: No History of Present Illness 60-year-old male with past medical history of DM, anxiety/depression, HTN, GERD , peripheral neuropathy, COPD, polysubstance abuse, noncompliance who presented with chest heaviness and suicidal thoughts. The patient is not a great historian. Patient states that he came to the hospital because he it's been having chest heaviness and suicidal thoughts. The patient has multiple presentations to the hospital for similar complaints. He is asking to talk to a psychiatrist consulted thoughts he is having of hurting himself. He states that he has been having constant chest heaviness for the past 2 days. He has been using crack cocaine since that time, last used 2 AM today. He has also been drinking a lot of alcohol. He states that he knows that when he does crack it causes him to have chest pain. He is unclear on associated shortness of breath. He states that he called the [place] hotline this morning at 2 AM who recommended he call 911 and go to sleep. He reports that he has been noncompliant with all of his home medications including insulin. He has been having acid reflux. He states that he had an episode of vomiting a few days ago. He had an episode of loose stools yesterday. Review of Systems Except as stated in HPI: all other systems reviewed are Neg Past Family Social History Past Medical History Diabetes mellitus with peripheral neuropathy Anxiety/depression Hypertension GERD COPD Polysubstance abuse Noncompliance Past Surgical History Right orbit surgery Right hand surgery Reported Medications Aspirin EC (Aspirin) 81 Mg Tabdr 81 Mg PO DAILY Bupropion HCl 75 Mg Tab 150 Mg PO BID Hydrochlorothiazide 12.5 Mg Cap 12.5 Mg PO DAILY Ventolin Hfa 18 GM Inh (Albuterol Sulfate) 90 Mcg/Act Aer 2 Puff INH Q6H PRN Novolin 70-30 Inj (Insulin Human Isoph/Insulin Regular) 1,000 Unit/10 Ml Vial 50 Units SQ BID Methocarbamol 750 Mg Tab 750 Mg PO HS Allergies: Coded Allergies: Lisinopril (Verified Allergy, Unknown, 07/09/16) Active Ordered Medications Current Medications Medications (Trade) Dose Ordered Sig/Salas Route Start Time Stop Time Status Last Admin Sodium Chloride 2 ml 2 ml UNSCH PRN IVF 07/05/16 08:15 (1/2 NS 1000 ml Inj) 1,000 ml @ 75 mls/hr [id number] IV 07/05/16 11:18 07/05/16 12:03 (NS Flush) 2 ml UNSCH PRN IV FLUSH 07/05/16 11:30 (NS Flush) 2 ml BID IV FLUSH 07/05/16 21:00 (Narcan Inj) 0.4 mg UNSCH PRN IV 07/05/16 11:30 (Guadalupe-Colace) 1 tab BID PO 07/05/16 21:00 (Milk Of Magnesia Liq) 30 ml Q12H PRN PO 07/05/16 11:30 (Senokot) 17.2 mg Q12H PRN PO 07/05/16 11:30 (Dulcolax Supp) 10 mg DAILY PRN RECTAL 07/05/16 11:30 (Lactulose Liq) 30 ml DAILY PRN PO 07/05/16 11:30 (Ventolin Hfa Inh) 2 puff Q6H PRN INH 07/05/16 11:30 (Ecotrin Ec) 81 mg DAILY PO 07/06/16 09:00 (Microzide) 12.5 mg DAILY PO 07/06/16 09:00 (NovoLIN 70/30 INJ) 50 units BID SQ 07/05/16 21:00 (Robaxin) 750 mg HS PO 07/05/16 21:00 Family History Parents both of heart problems Social History Drinks alcohol daily Smokes crack cocaine as often as possible Tobacco use Physical Exam Vital Signs Vital Signs Date Time Temp Pulse Resp B/P Pulse Ox O2 Delivery O2 Flow Rate FiO2 07/05/16 12:25 98.5 77 20 173/92 97 07/05/16 10:06 90 14 153/85 97 Room Air 07/05/16 08:44 78 12 159/79 100 07/05/16 08:05 79 20 163/90 98 Room Air 07/05/16 08:01 98.1 82 16 163/90 98 Physical Exam GENERAL: Well-developed well-nourished. In no acute distress. Appears intoxicated and a bit restless. SKIN: Warm and dry. No lesions noted. HEENT: Normocephalic. Pupils equal and round. Mucous membranes pink and moist. CARDIOVASCULAR: Regular rate and rhythm. No murmur appreciated. RESPIRATORY: No accessory muscle use. Clear to auscultation. Breath sounds equal bilaterally. GASTROINTESTINAL: Abdomen soft, mild epigastric TTP, nondistended. Bowel sounds x4. MUSCULOSKELETAL: No obvious deformities. No clubbing or cyanosis. No edema. NEUROLOGICAL: Awake and alert. No focal neurological deficits. Moves upper and lower extremities spontaneously. Normal speech. PSYCHIATRIC: Guarded mood and affect; insight and judgment fair. Laboratory Laboratory Tests Test 07/05/16 07/05/16 08:12 12:05 White Blood Count 9.1 Red Blood Count 5.61 Hemoglobin 15.8 Hematocrit 46.8 Mean Corpuscular Volume 83.5 Mean Corpuscular Hemoglobin 28.1 Mean Corpuscular Hemoglobin 33.7 Concent Red Cell Distribution Width 14.1 Platelet Count 262 Mean Platelet Volume 7.6 Neutrophils (%) (Auto) 59.3 Lymphocytes (%) (Auto) 29.6 Monocytes (%) (Auto) 9.5 Eosinophils (%) (Auto) 0.7 Basophils (%) (Auto) 0.9 Neutrophils # (Auto) 5.4 Lymphocytes # (Auto) 2.7 Monocytes # (Auto) 0.9 Eosinophils # (Auto) 0.1 Basophils # (Auto) 0.1 CBC Comment DIFF FINAL Differential Comment Prothrombin Time 12.0 Prothromb Time International 1.1 Ratio Activated Partial 27.4 Thromboplast Time Sodium Level 138 Potassium Level 3.4 Chloride Level 103 Carbon Dioxide Level 24.3 Anion Gap 11 Blood Urea Nitrogen 9 Creatinine 1.12 Estimat Glomerular Filtration 81 Rate Random Glucose 211 Calcium Level 8.3 Total Creatine Kinase 577 Creatine Kinase MB 6.7 Creatine Kinase MB % 1.2 Troponin I 0.08 Ethyl Alcohol Level 65 Urine Opiates Screen NEG Urine Barbiturates Screen NEG Urine Amphetamines Screen NEG Urine Benzodiazepines Screen NEG Urine Cocaine Screen POS Urine Cannabinoids Screen NEG Result Diagram: 07/05/1681107/05/16811 Imaging Last Impressions Chest X-Ray 07/05/16 0804 Signed Impressions: Service Date/Time: Tuesday, July 05, 2016 08:24 - CONCLUSION: Underinflated examination. No acute cardiopulmonary abnormality is identified. Corey Ayala MD Assessment and Plan Assessment and Plan 60-year-old male with past medical history of DM, anxiety/depression, HTN, GERD , peripheral neuropathy, COPD, polysubstance abuse, noncompliance who presented with chest heaviness and suicidal thoughts Chest pain with elevated troponin: Associated with cocaine use, multiple previous visits for the same. Reviewed: EKG with nonspecific anterior ST changes, however no significant change from previous EKG 05/26. Initial troponin 0.08. CPK 577. UDS positive for cocaine. Toxicology positive for alcohol. Chest x-ray unremarkable. -Continue aspirin. Avoid beta renetta. -Trend cardiac enzymes and EKGs. -Consider cardiology consult if troponins continue to increase. -Stop cocaine use. -IVF -Monitor on telemetry Suicidal thoughts in a patient with anxiety and depression: Patient requesting voluntary evaluation in the setting of substance abuse. Hold bupropion for now with cocaine use. Consult psychiatry. Diabetes mellitus: Resume home NovoLog 70/30. Monitor Accu-Cheks. Additional SSI coverage if needed. Alcohol abuse with acute intoxication: EtOH level 65. Daily use. CIWA protocol. Thiamine, folate, multivitamins. GERD: Start PPI. COPD: Chronic, stable. Continue albuterol. Hypertension: Chronic. Currently uncontrolled, likely secondary to cocaine use. Continue HCTZ. Clonidine as needed. DVT prophylaxis: SCDs Discussed Condition With Patient with RN at bedside, Dr. You Attending Statement The exam, history, and the medical decision-making described in the above note were completed with the assistance of the mid-level provider. I reviewed and agree with the findings presented. I attest that I had a [id number] encounter with the patient on the same day, and personally performed and documented my assessment and findings in the medical record.patient seen and examined on date of service. Patient appears comfortable.chest pain likely secondary to cocaine. Cessation counseling provided. Monitor troponins Thor Givens July 05, 2016 14:25 Sterling You MD Jul 10, 2016 07:00
[2016-07-05] MEDS: SODIUM CHLOR 0.9% 1000 ML INJ 1,000 ML IV SCH ×2 (14:43→23:06)
[2016-07-05] MEDS: PANTOPRAZOLE SODIUM 40 MG VIAL IV PUSH SCH (14:44)
[2016-07-05] MEDS: INSULIN ASPART SUPPLEMENTAL SCALE SQ SCH ×2 (16:00→21:00)
[2016-07-05 18:15] LABS: MAGNESIUM 2.1 MG/DL (1.5-2.5)
[2016-07-05 18:30] LABS: CKMB 4.9 NG/ML (0.5-3.6)
[2016-07-05] MEDS: INSULIN HUMAN NPH/R 70/30 1,000 UNITS/10 ML VIAL SQ SCH (21:00)
[2016-07-05] MEDS: METHOCARBAMOL 500 MG TAB PO SCH (22:55)
[2016-07-05] MEDS: DOCUSATE SODIUM 50 MG/SENNA 8.6 MG TAB PO SCH (22:55)
[2016-07-05] MEDS: SODIUM CHLORIDE 0.9% FLUSH 10 ML FLUSH IV FLUSH SCH (23:05)
[2016-07-06] VITALS (8 sets, daily range): BP systolic 133–155; BP diastolic 60–103; PULSE 77–97; RESP 18–20; TEMP 96.8–98.8; O2SAT 93–97
[2016-07-06] MEDS: INSULIN ASPART SUPPLEMENTAL SCALE SQ SCH ×4 (07:00→22:07)
[2016-07-06 07:12] LABS: AUTOMATED NEUTROPHIL # 5.1 TH/MM3 (1.8-7.7); BASOPHIL # 0.1 TH/MM3 (0-0.2); BASOPHIL % 0.8 % (0.0-2.0); EOSINOPHIL # 0.2 TH/MM3 (0-0.4); EOSINOPHIL % 1.7 % (0.0-4.0); HEMATOCRIT 49.8 % (39.0-51.0); HEMO FLAGS DIFF FINAL; LYMPH % 34.7 % (9.0-44.0); LYMPHOCYTE # 3.3 TH/MM3 (1.0-4.8); MEAN CELL VOLUME 84.3 FL (80.0-100.0); MEAN CORPUSCULAR HEMOGLOBIN 27.6 PG (27.0-34.0); MEAN CORPUSCULAR HGB CONC 32.8 % (32.0-36.0); MONO % 9.8 % (0.0-8.0); PLATELET COUNT 277 TH/MM3 (150-450); RED BLOOD COUNT 5.91 MIL/MM3 (4.50-5.90); RED CELL DISTRIBUTION WIDTH 14.1 % (11.6-17.2); WHITE BLOOD COUNT 9.5 TH/MM3 (4.0-11.0)
[2016-07-06 08:06] LABS: ALKALINE PHOSPHATASE 78 U/L (45-117); ALT (GPT) 35 U/L (12-78); ANION GAP 8 MEQ/L (5-15); AST (GOT) 24 U/L (15-37); BICARBONATE 29.5 MEQ/L (21.0-32.0); BLOOD UREA NITROGEN 11 MG/DL (7-18); CHLORIDE 102 MEQ/L (98-107); GLOMERULAR FILTRATION RATE 78 ML/MIN (>89); SODIUM (NA) 139 MEQ/L (136-145); TOTAL BILIRUBIN ADULT 0.4 MG/DL (0.2-1.0)
[2016-07-06] MEDS: ASPIRIN EC 81 MG TABEC PO SCH (10:19)
[2016-07-06] MEDS: FOLIC ACID 1 MG TAB PO SCH (10:19)
[2016-07-06] MEDS: MULTIVITAMINS/MINERALS THERAPEUTIC TAB PO SCH (10:19)
[2016-07-06] MEDS: INSULIN HUMAN NPH/R 70/30 1,000 UNITS/10 ML VIAL SQ SCH ×2 (10:19→22:06)
[2016-07-06] MEDS: HYDROCHLOROTHIAZIDE 12.5 MG CAP PO SCH (10:19)
[2016-07-06] MEDS: THIAMINE HCL 100 MG TAB PO SCH (10:19)
[2016-07-06] MEDS: DOCUSATE SODIUM 50 MG/SENNA 8.6 MG TAB PO SCH ×2 (10:19→22:01)
[2016-07-06] MEDS: SODIUM CHLOR 0.9% 1000 ML INJ 1,000 ML IV SCH (10:20)
[2016-07-06] MEDS: SODIUM CHLORIDE 0.9% FLUSH 10 ML FLUSH IV FLUSH SCH ×2 (10:20→22:01)
--- NOTE | 2016-07-06 15:02 | EKG ---
Date Performed: 07/05/2016 Time Performed: 13:32:27 PTAGE: 60 years EKG: WITHIN NORMAL LIMITS Since previous tracing, no significant change noted BORDERLINE ECG PREVIOUS TRACING : 07/05/2016 07.57 DOCTOR: Ki Hartmann Interpretating Date/Time 07/06/2016 15:00:36
--- NOTE | 2016-07-06 15:02 | EKG ---
Date Performed: 07/05/2016 Time Performed: 17:36:43 PTAGE: 60 years EKG: Sinus rhythm NORMAL ECG PREVIOUS TRACING : 07/05/2016 13.32 Since previous tracing, no significant change noted DOCTOR: Ki Hartmann Interpretating Date/Time 07/06/2016 15:00:53
--- NOTE | 2016-07-06 15:08 | HHI.PR ---
Subjective Remarks Follow-up for chest pain and suicidal thoughts. The patient states that his chest no longer hurts today. He doesn't like the food here, but he has been tolerating diet. He states that he's been having suicidal thoughts "all day and all night". Objective Vitals Vital Signs Date Time Temp Pulse Resp B/P Pulse Ox O2 Delivery O2 Flow Rate FiO2 07/06/16 11:51 98.6 85 19 145/76 97 07/06/16 09:30 82 07/06/16 09:03 96.8 80 18 140/77 96 07/06/16 04:10 98.8 84 18 148/103 97 07/05/16 23:42 98.5 77 21 153/72 98 07/05/16 20:07 98.5 84 18 180/83 97 07/05/16 15:22 99.0 94 20 179/85 99 I/O 07/05/16 07/05/16 07/05/16 07/06/16 07/06/16 07/06/16 07:00 15:00 23:00 07:00 15:00 23:00 Intake Total 300 ml 200 ml Balance 300 ml 200 ml Intake Oral 300 ml 200 ml Result Diagram: 07/06/16 0615 07/06/16 0615 Imaging Last Impressions Chest X-Ray 07/05/16 0804 Signed Impressions: Service Date/Time: Tuesday, July 05, 2016 08:24 - CONCLUSION: Underinflated examination. No acute cardiopulmonary abnormality is identified. Corey Ayala MD Objective Remarks GENERAL: Well-developed well-nourished. In no acute distress. SKIN: Warm and dry. No lesions noted. HEENT: Normocephalic. Pupils equal and round. Mucous membranes pink and moist. CARDIOVASCULAR: Regular rate and rhythm. No murmur appreciated. RESPIRATORY: No accessory muscle use. Clear to auscultation. Breath sounds equal bilaterally. GASTROINTESTINAL: Abdomen soft, non-tender, nondistended. Bowel sounds x4. MUSCULOSKELETAL: No obvious deformities. No clubbing or cyanosis. No edema. NEUROLOGICAL: Awake and alert. No focal neurological deficits. Moves upper and lower extremities spontaneously. Normal speech. PSYCHIATRIC: Slightly agitated mood and guarded affect; insight and judgment normal. Reports SI. A/P Assessment and Plan 60-year-old male with past medical history of DM, anxiety/depression, HTN, GERD , peripheral neuropathy, COPD, polysubstance abuse, noncompliance who presented with chest heaviness and suicidal thoughts Chest pain with elevated troponin: Associated with cocaine use, multiple previous visits for the same. Reviewed: EKG with nonspecific anterior ST changes, however no significant change from previous EKG 05/26. Troponins 0.08, 0.05, 0.08, 0.07; flat and nonischemic. UDS positive for cocaine. Toxicology positive for alcohol. Chest x-ray unremarkable. -Continue aspirin. Avoid beta renetta. -Stop cocaine use. -Monitor on telemetry Suicidal thoughts in a patient with anxiety and depression: Patient requesting voluntary evaluation in the setting of substance abuse. Hold bupropion for now with cocaine use. Consulted psychiatry, appreciate input. Elevated CPK: 577->413. Likely mild rhabdomyolysis from cocaine use. Down trending. Received aggressive IVF, DC. Diabetes mellitus: Resumed home NovoLog 70/30 with good effect. Monitor Accu- Cheks. Additional SSI coverage if needed. Alcohol abuse with acute intoxication: EtOH level 65. Daily use. CIWA protocol. Thiamine, folate, multivitamins. No signs of active withdrawal at this time. GERD: Start PPI. COPD: Chronic, stable. Continue albuterol. Hypertension: Chronic, reasonably controlled. Was elevated at admission, likely secondary to cocaine use. Continue HCTZ. Clonidine as needed. Tobacco abuse: Patient counseling. Avoid NicoDerm to prevent basis potassium. DVT prophylaxis: SCDs Discharge Planning The patient is medically clear at this time pending psychiatry recommendations. Thor Givens July 06, 2016 15:07
--- NOTE | 2016-07-06 15:30 | EKG ---
Date Performed: 07/05/2016 Time Performed: 07:57:40 PTAGE: 60 years EKG: WITHIN NORMAL LIMITS Since previous tracing, no significant change noted BORDERLINE ECG PREVIOUS TRACING : 06/08/2016 14.30 DOCTOR: Mitchell Baron Interpretating Date/Time 07/06/2016 15:28:40
[2016-07-06] MEDS: PANTOPRAZOLE SODIUM 40 MG VIAL IV PUSH SCH (15:43)
[2016-07-06] MEDS ORDERED: GNP100TA3 PO (17:21)
[2016-07-06] MEDS ORDERED: OMEP20TA PO (17:21)
--- NOTE | 2016-07-06 19:20 | PD ---
History of Present Illness Chief Complaint: Chest Pain Time Seen by Provider: 19:00 Travel History International Travel<30 Days: No Contact w/Intl Traveler<30days: No Known affected area: No Legal Status Legal Status: [place] Signed By: History of Present Illness: This is a 60-year-old male who has been to the emergency department twice in the last month, both times receiving diagnosis of cocaine abuse. On this occasion he once again has been using crack cocaine even though he has an underlying cardiac condition. The patient states repeatedly that he is suicidal and he must be admitted or he will kill himself. This physician finds the patient to be very manipulative as he has continued to use crack cocaine despite his cardiac disorder. This physician further feels it is counter therapeutic to admit the patient to [facility] as this will enable his behavior to continue. Instead, the patient may seek treatment at [facility]. However, they may not accept him due to his if the patient truly wants help, he must address his addiction disorder first. That means a period of sobriety from alcohol and drugs for several days in order to get into [facility]. This physician understands well the patient may go out if discharged and harm himself to show his seriousness. However, this risk must be assumed if the patient is to be treated properly from and addiction standpoint. This facility is also not licensed to treat the primary condition which is cocaine abuse. [facility] does have that license for drug detox and rehabilitation. PFSH Past Medical History Hx Anticoagulant Therapy: Yes (ASPIRIN) Blood Disorders: No Anxiety: Yes Depression: Yes Heart Rhythm Problems: No Cancer: No Cardiovascular Problems: Yes (HTN) High Cholesterol: Yes Chest Pain: Yes (with coughing) Congestive Heart Failure: No COPD: No Diabetes: Yes (Type 2) Patient Takes Glucophage: No Diminished Hearing: No Endocrine: Yes Gastrointestinal Disorders: Yes GERD: Yes Genitourinary: No Hepatitis: Yes (C) Hypertension: Yes Immune Disorder: No Implanted Vascular Access Dvce: No Musculoskeletal: No Neurologic: No Psychiatric: Yes Reproductive: No Respiratory: No Immunizations Current: Yes Sleep Apnea: Yes (CPAP) Influenza Vaccination: Yes Past Surgical History Abdominal Surgery: No Cardiac Surgery: No Endocrine Surgery: No Eye Surgery: Yes (RETINA SOCKET REPAIR) Genitourinary Surgery: No Gynecologic Surgery: No Thoracic Surgery: No Other Surgery: Yes (RIGHT HAND, RIGHT EYE) Psychiatric History Psychiatric History Hx Psychiatric Treatment: [facility] last month. History of Inpatient Treatment: Yes Guns or firearms in home: No Social History Hx Alcohol Use: Yes (beer daily 8 pkg) Hx Tobacco Use: Yes (1 PPD) Hx Substance Use: Yes (Crack cocaine, day of admit) Substance Use Type: Alcohol, Nicotine/Cigarettes, Cocaine Hx of Substance Use Treatment: Yes Allergies-Medications (Allergen,Severity, Reaction): Coded Allergies: Lisinopril (Verified Allergy, Unknown, 07/05/16) Reported Meds & Prescriptions Reported Meds & Active Scripts Active Aspirin EC (Aspirin) 81 Mg Tabdr 81 Mg PO DAILY Reported Bupropion HCl 75 Mg Tab 150 Mg PO BID Hydrochlorothiazide 12.5 Mg Cap 12.5 Mg PO DAILY Ventolin Hfa 18 GM Inh (Albuterol Sulfate) 90 Mcg/Act Aer 2 Puff INH Q6H PRN Novolin 70-30 Inj (Insulin Human Isoph/Insulin Regular) 1,000 Unit/10 Ml Vial 50 Units SQ BID Methocarbamol 750 Mg Tab 750 Mg PO HS Review of Systems ROS Limitations: Uncooperative Except as stated in HPI: all other systems reviewed are Neg Exam Exam Limitations: Uncooperative Alert: Yes [place]: Person, Place, Date, Situation Mood: Oppositional Affect: Labile Speech: Clear, Logical Eye Contact: Normal Memory Intact: Immediate, Recent, Remote Suicidal: Ideation Insight/Judgement Adequate. Patient competently chooses to continue to use drugs. MDM Medical Decision Making Medical Record Reviewed: Yes Assessment/Plan [place] act lifted and patient discharged. Orders Electrocardiogram (07/05/16 13:32) Troponin I (07/06/16 07:38) ^ Other Nursing Orders (07/06/16 14:51) Results Vital Signs Date Time Temp Pulse Resp B/P Pulse Ox O2 Delivery O2 Flow Rate FiO2 07/06/16 15:37 98.8 97 20 148/87 96 07/06/16 11:51 98.6 85 19 145/76 97 07/06/16 09:30 82 07/06/16 09:03 96.8 80 18 140/77 96 07/06/16 04:10 98.8 84 18 148/103 97 07/05/16 23:42 98.5 77 21 153/72 98 07/05/16 20:07 98.5 84 18 180/83 97 Laboratory Tests Test 07/06/16 06:15 White Blood Count 9.5 Red Blood Count 5.91 Hemoglobin 16.3 Hematocrit 49.8 Mean Corpuscular Volume 84.3 Mean Corpuscular Hemoglobin 27.6 Mean Corpuscular Hemoglobin 32.8 Concent Red Cell Distribution Width 14.1 Platelet Count 277 Mean Platelet Volume 7.7 Neutrophils (%) (Auto) 53.0 Lymphocytes (%) (Auto) 34.7 Monocytes (%) (Auto) 9.8 Eosinophils (%) (Auto) 1.7 Basophils (%) (Auto) 0.8 Neutrophils # (Auto) 5.1 Lymphocytes # (Auto) 3.3 Monocytes # (Auto) 0.9 Eosinophils # (Auto) 0.2 Basophils # (Auto) 0.1 CBC Comment DIFF FINAL Differential Comment Sodium Level 139 Potassium Level 4.0 Chloride Level 102 Carbon Dioxide Level 29.5 Anion Gap 8 Blood Urea Nitrogen 11 Creatinine 1.16 Estimat Glomerular Filtration 78 Rate Random Glucose 90 Calcium Level 8.7 Total Bilirubin 0.4 Aspartate Amino Transf 24 (AST/SGOT) Alanine Aminotransferase 35 (ALT/SGPT) Alkaline Phosphatase 78 Troponin I 0.07 Total Protein 6.7 Albumin 2.8 Diagnosis Primary Impression: Cocaine abuse, unspecified Prescriptions Thiamine HCl (Gnp Vitamin B-1)100 Mg [id number] Mg PO DAILY #5 TAB Prov:Thor Givens 07/06/16 Omeprazole 20 Mg Tab20 Mg PO DAILY #30 TAB Ref 0 Prov:Thor Givens 07/06/16 Ki Conte MD July 06, 2016 19:19
[2016-07-06] MEDS: METHOCARBAMOL 500 MG TAB PO SCH (22:02)
[2016-07-07] MEDS: INSULIN ASPART SUPPLEMENTAL SCALE SQ SCH (06:23)
[2016-07-07 07:52] VITALS: BP 125/66; PULSE 81; RESP 18; TEMP 97.8; O2SAT 98
--- NOTE | 2016-07-07 07:54 | HHI.PR ---
Subjective Remarks Follow-up for suicidal thoughts. The patient has no acute medical complaints today. He is asking to go to rehabilitation for his suicidal thoughts. He has been cleared by psychiatry for outpatient addiction treatment. Objective Vitals Vital Signs Date Time Temp Pulse Resp B/P Pulse Ox O2 Delivery O2 Flow Rate FiO2 07/06/16 23:28 98.4 77 18 133/60 97 07/06/16 21:00 98.5 80 18 155/92 93 07/06/16 20:45 83 07/06/16 15:37 98.8 97 20 148/87 96 07/06/16 11:51 98.6 85 19 145/76 97 07/06/16 09:30 82 07/06/16 09:03 96.8 80 18 140/77 96 Result Diagram: 07/06/16 0615 07/06/1615 Imaging Last Impressions Chest X-Ray 07/05/16 0804 Signed Impressions: Service Date/Time: Tuesday, July 05, 2016 08:24 - CONCLUSION: Underinflated examination. No acute cardiopulmonary abnormality is identified. Corey Ayala MD Objective Remarks GENERAL: Well-developed well-nourished. In no acute distress. SKIN: Warm and dry. No lesions noted. HEENT: Normocephalic. Pupils equal and round. Mucous membranes pink and moist. CARDIOVASCULAR: Regular rate and rhythm. No murmur appreciated. RESPIRATORY: No accessory muscle use. Clear to auscultation. Breath sounds equal bilaterally. GASTROINTESTINAL: Abdomen soft, non-tender, nondistended. Bowel sounds x4. MUSCULOSKELETAL: No obvious deformities. No clubbing or cyanosis. No edema. NEUROLOGICAL: Awake and alert. No focal neurological deficits. Moves upper and lower extremities spontaneously. Normal speech. PSYCHIATRIC: Slightly agitated mood and guarded affect; insight and judgment normal. Reports SI. A/P Problem List: (1) Substance induced mood disorder ICD Code: F19.94 Status: Acute (2) Hypertension ICD Code: I10 Status: Chronic (3) Chest pain ICD Code: R07.9 Status: Resolved (4) GERD (gastroesophageal reflux disease) ICD Code: K21.9 Status: Acute (5) Diabetes ICD Code: E11.9 Status: Chronic (6) Cocaine abuse ICD Code: F14.10 Status: Chronic (7) Alcohol abuse ICD Code: F10.10 Status: Chronic (8) Polysubstance dependence ICD Code: F19.20 Status: Chronic Assessment and Plan 60-year-old male with past medical history of DM, anxiety/depression, HTN, GERD , peripheral neuropathy, COPD, polysubstance abuse, noncompliance who presented with chest heaviness and suicidal thoughts Chest pain with elevated troponin: Associated with cocaine use, multiple previous visits for the same. Reviewed: EKG with nonspecific anterior ST changes, however no significant change from previous EKG 05/26. Troponins 0.08, 0.05, 0.08, 0.07; flat and nonischemic. UDS positive for cocaine. Toxicology positive for alcohol. Chest x-ray unremarkable. -Continue aspirin. Avoid beta renetta. -Stop cocaine use. Suicidal thoughts in a patient with anxiety and depression: Patient requesting voluntary evaluation in the setting of substance abuse. Held bupropion for now with cocaine use. Consulted psychiatry, recommend outpatient addiction treatment at [facility] despite continued suicidal ideations. Elevated CPK: 577->413. Likely mild rhabdomyolysis from cocaine use. Down trending, improved. Received aggressive IVF. Diabetes mellitus: Resumed home NovoLog 70/30 with good effect. Monitor Accu- Cheks. Additional SSI coverage if needed. Alcohol abuse with acute intoxication: EtOH level 65. Daily use. [facility] protocol. Thiamine, folate, multivitamins. No signs of active withdrawal at this time. GERD: Start PPI. COPD: Chronic, stable. Continue albuterol. Hypertension: Chronic, reasonably controlled. Was elevated at admission, likely secondary to cocaine use. Continue HCTZ. Clonidine as needed. Tobacco abuse: Patient counseling. Avoid NicoDerm to prevent vasospasm DVT prophylaxis: SCDs Discharge Planning We will have case management provide the patient with information for voluntary outpatient substance abuse rehabilitation Discharge patient to home Condition on discharge: Improved Heart healthy diabetic Diet as tolerated Regular activity Rx written: Thiamine, omeprazole Follow-up with primary care physician and behavioral services Problem Qualifiers (1) Hypertension: Qualified Code: I10 - Essential hypertension (2) Chest pain: Qualified Code: R07.89 - Other chest pain (3) GERD (gastroesophageal reflux disease): Qualified Code: K21.9 - Gastroesophageal reflux disease, esophagitis presence not specified Thor Givens July 07, 2016 07:54
[2016-07-07] MEDS: INSULIN HUMAN NPH/R 70/30 1,000 UNITS/10 ML VIAL SQ SCH (09:36)
[2016-07-07] MEDS: THIAMINE HCL 100 MG TAB PO SCH (09:37)
[2016-07-07] MEDS: MULTIVITAMINS/MINERALS THERAPEUTIC TAB PO SCH (09:37)
[2016-07-07] MEDS: SODIUM CHLORIDE 0.9% FLUSH 10 ML FLUSH IV FLUSH SCH (09:37)
[2016-07-07] MEDS: HYDROCHLOROTHIAZIDE 12.5 MG CAP PO SCH (09:37)
[2016-07-07] MEDS: FOLIC ACID 1 MG TAB PO SCH (09:37)
[2016-07-07] MEDS: ASPIRIN EC 81 MG TABEC PO SCH (09:37)
[2016-07-07] MEDS: DOCUSATE SODIUM 50 MG/SENNA 8.6 MG TAB PO SCH (09:37)
[2016-07-07 10:03] VITALS: PULSE 74
[2016-07-07 11:39] VITALS: BP 158/85; PULSE 88; RESP 16; TEMP 98; O2SAT 96
== END 2016-07-07 12:35 | disposition home or self-care (01) ==
LOC: NEPC 07:50 → NEDA 10:41 → NEPHCDU 12:16
PROVIDERS: ADMIT Internal Medicine; ATTEND Internal Medicine
DX: R07.89 Other chest pain (principal); E11.42 Type 2 diabetes mellitus with diabetic polyneuropathy; I10 Essential (primary) hypertension; F41.9 Anxiety disorder, unspecified; R79.89 Other specified abnormal findings of blood chemistry; F32.9 Major depressive disorder, single episode, unspecified; F10.129 Alcohol abuse with intoxication, unspecified; Y90.1 Blood alcohol level of 20-39 mg/100 ml; K21.9 Gastro-esophageal reflux disease without esophagitis; J44.9 Chronic obstructive pulmonary disease, unspecified; F14.10 Cocaine abuse, uncomplicated; R74.8 Abnormal levels of other serum enzymes; F17.200 Nicotine dependence, unspecified, uncomplicated; B19.20 Unspecified viral hepatitis C without hepatic coma; Z79.82 Long term (current) use of aspirin; Z88.8 Allergy status to other drugs, medicaments and biological substances; Z79.4 Long term (current) use of insulin; Z91.14 Patient's other noncompliance with medication regimen
CPT/HCPCS: 71010; 80048; 80053; 80307; 82550; 82552; 82948; 83735; 84484; 85025; 85610; 85730; 93005; 97161; 99285; C9113; G0378; G8987; G8988; J1815; J7030

== ENCOUNTER 2016-07-08 04:10 | Emergency (ER) | payer OTHER ==
[~2016-07-08] VITALS: Ht 172.7 cm; Wt 90.0 kg
[~2016-07-08 04:10] MED LIST changes: -AZIT500T2 PO; -CEFU1TAB20 PO; +GNP100TA3 PO; -MULT-135 PO; +OMEP20TA PO; -PANT20TA2 PO; -THIA50CA PO; -TRAZ100T5 PO
[2016-07-08 04:16] VITALS: BP 130/80; PULSE 110; RESP 18; TEMP 99.1; O2SAT 96
[2016-07-08] MEDS ORDERED: LORazepam 2 MG/ML VIAL IV PUSH ONE (04:30)
[2016-07-08] MEDS ORDERED: SODIUM CHLOR 0.9% 1000 ML INJ 1,000 ML IV ONE (04:30)
--- NOTE | 2016-07-08 04:57 | PD ---
HPI Chief Complaint: Psychiatric Symptoms Time Seen by Provider: 04:34 Travel History International Travel<30 days: No Contact w/Intl Traveler<30days: No Traveled to known affect area: No History of Present Illness HPI 60-year-old black male presents to emergency department under [place] act by PD. The patient was just discharged from hospital today at 3:00. He allegedly drank a sixpack of beer and smoked $40 of crack cocaine. He states now he is feeling acutely depressed and suicidal. He had contemplated cutting himself with a razor. The patient states that he would like to get into detox for his alcohol and substance abuse. He initially wanted to go to [facility]. He states that he did not feel that [place] was helping him. He wants to go to detox in [place]. Patient states that he was discharged earlier today and advised to follow up Odilon Alfaro. Patient denies any toxic ingestion. He had a workup yesterday for chest pain which was negative. PFSH Past Medical History Hx Anticoagulant Therapy: Yes (ASPIRIN) Blood Disorders: No Anxiety: Yes Depression: Yes Heart Rhythm Problems: No Cancer: No Cardiovascular Problems: Yes (HTN) High Cholesterol: Yes Chest Pain: Yes (with coughing) Congestive Heart Failure: No COPD: No Diabetes: Yes (Type 2) Patient Takes Glucophage: No Diminished Hearing: No Endocrine: Yes Gastrointestinal Disorders: Yes GERD: Yes Genitourinary: No Hepatitis: Yes (C) Hypertension: Yes Immune Disorder: No Implanted Vascular Access Dvce: No Musculoskeletal: No Neurologic: No Psychiatric: Yes Reproductive: No Respiratory: No Immunizations Current: Yes Sleep Apnea: Yes (CPAP) Tetanus Vaccination: < 5 Years Influenza Vaccination: Yes Past Surgical History Abdominal Surgery: No Cardiac Surgery: No Endocrine Surgery: No Eye Surgery: Yes (RETINA SOCKET REPAIR) Genitourinary Surgery: No Gynecologic Surgery: No Thoracic Surgery: No Other Surgery: Yes (RIGHT HAND, RIGHT EYE) Social History Alcohol Use: Yes (beer daily 8 pkg) Tobacco Use: Yes (1 PPD) Substance Use: Yes (Crack cocaine, day of admit) Allergies-Medications (Allergen,Severity, Reaction): Coded Allergies: Lisinopril (Verified Allergy, Unknown, 07/08/16) Reported Meds & Prescriptions Reported Meds & Active Scripts Active Gnp Vitamin B-1 (Thiamine HCl) 100 Mg Tab 100 Mg PO DAILY Omeprazole 20 Mg Tab 20 Mg PO DAILY Aspirin EC (Aspirin) 81 Mg Tabdr 81 Mg PO DAILY Reported Bupropion HCl 75 Mg Tab 150 Mg PO BID Hydrochlorothiazide 12.5 Mg Cap 12.5 Mg PO DAILY Ventolin Hfa 18 GM Inh (Albuterol Sulfate) 90 Mcg/Act Aer 2 Puff INH Q6H PRN Novolin 70-30 Inj (Insulin Human Isoph/Insulin Regular) 1,000 Unit/10 Ml Vial 50 Units SQ BID Methocarbamol 750 Mg Tab 750 Mg PO HS Review of Systems ROS Limitations: Intoxication Except as stated in HPI: all other systems reviewed are Neg Psychiatric: Positive: Depression, Suicidal Ideations, Mood Disorder, Substance Abuse, No: Anxiety, Disorder of Thought, Homicidal Ideation Physical Exam Narrative GENERAL: Well-nourished, well-developed patient. SKIN: Warm and dry. HEAD: Normocephalic and atraumatic. EYES: No scleral icterus. No injection or drainage. ENT: No nasal drainage noted. Mucous membranes pink. Airway patent. NECK: Supple, trachea midline. Moves head freely without obvious discomfort. CARDIOVASCULAR: Regular rate and rhythm without murmurs, gallops, or rubs. RESPIRATORY: Breath sounds equal bilaterally. No accessory muscle use. GASTROINTESTINAL: Abdomen soft, non-tender, nondistended. EXTREMITIES: No cyanosis or edema. BACK: Nontender without obvious deformity. No CVA tenderness. NEURO: Patient is alert and oriented. no sensorimotor deficits. Nonfocal. Normal speech. PSYCH: No delusions. No auditory or visual hallucinations. Data Data Last Documented VS Vital Signs Date Time Temp Pulse Resp B/P Pulse Ox O2 Delivery O2 Flow Rate FiO2 07/08/16 04:16 99.1 110 18 130/80 96 Orders Psych Screen (07/08/16 04:26) Drug Screen, Random Urine (07/08/16 04:26) Alcohol (Ethanol) (07/08/16 04:26) Iv Access Insert/Monitor (07/08/16 04:27) Lorazepam Inj (Ativan Inj) (07/08/16 04:30) Sodium Chlor 0.9% 1000 Ml Inj (Ns 1000 M (07/08/16 04:30) MDM Medical Decision Making Medical Screen Exam Complete: Yes Emergency Medical Condition: Yes Medical Record Reviewed: Yes Differential Diagnosis MDM: High Differential diagnoses: Schizophrenia, schizoaffective disorder, bipolar, anxiety, depression, adjustment reaction, mood disorder NOS, ODD, depressive disorder NOS, dementia, dementia with agitation, psychosis NOS, substance induced mood disorder, intermittent explosive disorder, Asperger syndrome, infection,electrolyte abnormality, malingering. Narrative Course Mental health screening discussed with the patient. Psychiatric screen ordered. The patient's been medically cleared. Diagnosis Primary Impression: Medical clearance for psychiatric admission Additional Impression: Substance induced mood disorder Condition: Stable Angel Demarco July 08, 2016 04:57
[2016-07-08 06:53] VITALS: BP 127/81; PULSE 72; RESP 17; O2SAT 96
[2016-07-08 10:36] VITALS: BP 148/87; PULSE 91; RESP 16; O2SAT 100
[2016-07-08 15:11] LABS: AMPHETAMINE, URINE NEG (NEG); BARBITURATES, URINE NEG (NEG); COCAINE, URINE POS (NEG)
--- NOTE | 2016-07-08 16:18 | PD ---
History of Present Illness Chief Complaint: Psychiatric Symptoms Time Seen by Provider: 16:00 Travel History International Travel<30 Days: No Contact w/Intl Traveler<30days: No Known affected area: No Legal Status Legal Status: [place] Act [place] Act Signed By: Dameon Camarena History of Present Illness: 60-year-old male who was here 2 days ago with the same suicidal threats. He has also been here twice before that in the last month. He continuously goes out of the hospital and uses drugs, primarily crack cocaine. This is more concerning because he has an underlying cardiac condition that he is aware of. However, the patient has been repeatedly referred for drug detox and rehabilitation but he makes little or no effort to follow through. This physician explained to him once again, we are not a licensed facility for drug detox and rehabilitation. Furthermore, it is counter therapeutic for this physician to admit the patient to inpatient psychiatry as this will only enable him further to use drugs, make suicidal threats and be "saved". Therefore, once again, the patient will be discharged and his [place] act lifted. This physician understands he may continue to make suicidal threats or even act out in a dangerous way. However, giving into his manipulations is not appropriate and will not help him in the long run. PFSH Past Medical History Hx Anticoagulant Therapy: Yes (ASPIRIN) Blood Disorders: No Anxiety: Yes Depression: Yes Heart Rhythm Problems: No Cancer: No Cardiovascular Problems: Yes (HTN) High Cholesterol: Yes Chest Pain: Yes (with coughing) Congestive Heart Failure: No COPD: No Diabetes: Yes (Type 2) Patient Takes Glucophage: No Diminished Hearing: No Endocrine: Yes Gastrointestinal Disorders: Yes GERD: Yes Genitourinary: No Hepatitis: Yes (C) Hypertension: Yes Immune Disorder: No Implanted Vascular Access Dvce: No Musculoskeletal: No Neurologic: No Psychiatric: Yes Reproductive: No Respiratory: No Immunizations Current: Yes Sleep Apnea: Yes (CPAP) Tetanus Vaccination: < 5 Years Influenza Vaccination: Yes Past Surgical History Abdominal Surgery: No Cardiac Surgery: No Endocrine Surgery: No Eye Surgery: Yes (RETINA SOCKET REPAIR) Genitourinary Surgery: No Gynecologic Surgery: No Thoracic Surgery: No Other Surgery: Yes (RIGHT HAND, RIGHT EYE) Psychiatric History Psychiatric History Hx Psychiatric Treatment: [facility] last month. History of Inpatient Treatment: Yes Guns or firearms in home: No Social History Hx Alcohol Use: Yes (beer daily 8 pkg) Hx Tobacco Use: Yes (1 PPD) Hx Substance Use: Yes (Crack cocaine, day of admit) Substance Use Type: Alcohol, Nicotine/Cigarettes, Cocaine Hx of Substance Use Treatment: Yes Allergies-Medications (Allergen,Severity, Reaction): Coded Allergies: Lisinopril (Verified Allergy, Unknown, 07/08/16) Reported Meds & Prescriptions Reported Meds & Active Scripts Active Gnp Vitamin B-1 (Thiamine HCl) 100 Mg Tab 100 Mg PO DAILY Omeprazole 20 Mg Tab 20 Mg PO DAILY Aspirin EC (Aspirin) 81 Mg Tabdr 81 Mg PO DAILY Reported Bupropion HCl 75 Mg Tab 150 Mg PO BID Hydrochlorothiazide 12.5 Mg Cap 12.5 Mg PO DAILY Ventolin Hfa 18 GM Inh (Albuterol Sulfate) 90 Mcg/Act Aer 2 Puff INH Q6H PRN Novolin 70-30 Inj (Insulin Human Isoph/Insulin Regular) 1,000 Unit/10 Ml Vial 50 Units SQ BID Methocarbamol 750 Mg Tab 750 Mg PO HS Review of Systems Except as stated in HPI: all other systems reviewed are Neg Exam Alert: Yes [place]: Person, Place, Date, Situation Mood: Calm Affect: Appropriate Speech: Clear, Fast Eye Contact: Normal Memory Intact: Immediate, Recent, Remote Suicidal: Ideation Insight/Judgement Adequate except with regard to drug abuse. [facility] Medical Decision Making Medical Record Reviewed: Yes Assessment/Plan [place] act being lifted and patient being discharged. Patient may need security or police escort off the property. This physician also spoke with Dr. Cline as the patient has returned multiple times with the same presentation. Orders Psych Screen (07/08/16 04:26) Drug Screen, Random Urine (07/08/16 04:26) Alcohol (Ethanol) (07/08/16 04:26) Iv Access Insert/Monitor (07/08/16 04:27) Lorazepam Inj (Ativan Inj) (07/08/16 04:30) Sodium Chlor 0.9% 1000 Ml Inj (Ns 1000 M (07/08/16 04:30) Diet Regular Basic (07/08/16 Breakfast) Diet Regular Basic (07/08/16 Lunch) Diet Regular Basic (07/08/16 Dinner) Results Vital Signs Date Time Temp Pulse Resp B/P Pulse Ox O2 Delivery O2 Flow Rate FiO2 07/08/16 10:36 91 16 148/87 100 07/08/16 06:53 72 17 127/81 96 Room Air 07/08/16 04:16 99.1 110 18 130/80 96 Laboratory Tests Test 07/08/16 07/08/16 04:30 10:30 Ethyl Alcohol Level 17 Urine Opiates Screen NEG Urine Barbiturates Screen NEG Urine Amphetamines Screen NEG Urine Benzodiazepines Screen NEG Urine Cocaine Screen POS Urine Cannabinoids Screen NEG Diagnosis Primary Impression: Cocaine abuse Condition: Stable Ki Conte MD July 08, 2016 16:18
[2016-07-08 16:46] VITALS: BP 148/90; TEMP 91.3
== END 2016-07-08 17:07 | disposition home or self-care (01) ==
LOC: NEPJ 04:10
DX: Z02.89 Encounter for other administrative examinations (principal); F19.94 Other psychoactive substance use, unspecified with psychoactive substance-induced mood disorder; F14.10 Cocaine abuse, uncomplicated; R45.851 Suicidal ideations; E11.9 Type 2 diabetes mellitus without complications; I10 Essential (primary) hypertension; E78.00 Pure hypercholesterolemia, unspecified; G47.30 Sleep apnea, unspecified; F17.200 Nicotine dependence, unspecified, uncomplicated; Z79.82 Long term (current) use of aspirin; Z79.4 Long term (current) use of insulin; Z86.59 Personal history of other mental and behavioral disorders; Z86.79 Personal history of other diseases of the circulatory system; Z87.19 Personal history of other diseases of the digestive system
CPT/HCPCS: 80307; 96374; 99284; J2060; J7030

== ENCOUNTER 2016-07-09 02:43 | Emergency (ER) | payer OTHER ==
[~2016-07-09] VITALS: Ht 175.3 cm; Wt 105.0 kg
[2016-07-09 02:57] VITALS: BP 150/84; PULSE 95; RESP 16; TEMP 98.1; O2SAT 100
--- NOTE | 2016-07-09 03:02 | PD ---
HPI Chief Complaint: Psychiatric Symptoms Time Seen by Provider: 03:00 Travel History International Travel<30 days: No Contact w/Intl Traveler<30days: No Traveled to known affect area: No History of Present Illness HPI 60-year-old black male returns again to the ER under [place] act stating that he is suicidal because he has not gotten into detox. He continues to abuse alcohol and crack cocaine. He denies any toxic ingestion. He was seen earlier today by the psychiatrist and discharged. PFSH Past Medical History Hx Anticoagulant Therapy: Yes (ASPIRIN) Blood Disorders: No Anxiety: Yes Depression: Yes Heart Rhythm Problems: No Cancer: No Cardiovascular Problems: Yes (HTN) High Cholesterol: Yes Chest Pain: Yes (with coughing) Congestive Heart Failure: No COPD: No Diabetes: Yes (Type 2) Diminished Hearing: No Endocrine: Yes Gastrointestinal Disorders: Yes GERD: Yes Genitourinary: No Hepatitis: Yes (C) Hypertension: Yes Immune Disorder: No Implanted Vascular Access Dvce: No Musculoskeletal: No Neurologic: No Psychiatric: Yes Reproductive: No Respiratory: No Immunizations Current: Yes Sleep Apnea: Yes (CPAP) Past Surgical History Abdominal Surgery: No Cardiac Surgery: No Endocrine Surgery: No Eye Surgery: Yes (RETINA SOCKET REPAIR) Genitourinary Surgery: No Gynecologic Surgery: No Thoracic Surgery: No Other Surgery: Yes (RIGHT HAND, RIGHT EYE) Social History Alcohol Use: Yes (beer daily 8 pkg) Tobacco Use: Yes (1 PPD) Substance Use: Yes (Crack cocaine, day of admit) Allergies-Medications (Allergen,Severity, Reaction): Coded Allergies: Lisinopril (Verified Allergy, Unknown, 07/08/16) Reported Meds & Prescriptions Reported Meds & Active Scripts Active Gnp Vitamin B-1 (Thiamine HCl) 100 Mg Tab 100 Mg PO DAILY Omeprazole 20 Mg Tab 20 Mg PO DAILY Aspirin EC (Aspirin) 81 Mg Tabdr 81 Mg PO DAILY Reported Bupropion HCl 75 Mg Tab 150 Mg PO BID Hydrochlorothiazide 12.5 Mg Cap 12.5 Mg PO DAILY Ventolin Hfa 18 GM Inh (Albuterol Sulfate) 90 Mcg/Act Aer 2 Puff INH Q6H PRN Novolin 70-30 Inj (Insulin Human Isoph/Insulin Regular) 1,000 Unit/10 Ml Vial 50 Units SQ BID Methocarbamol 750 Mg Tab 750 Mg PO HS Review of Systems Except as stated in HPI: all other systems reviewed are Neg Physical Exam Narrative GENERAL: Well-nourished, well-developed patient. Patient appears high. SKIN: Warm and dry. HEAD: Normocephalic and atraumatic. EYES: No scleral icterus. No injection or drainage. ENT: No nasal drainage noted. Mucous membranes pink. Airway patent. NECK: Supple, trachea midline. Moves head freely without obvious discomfort. CARDIOVASCULAR: Regular rate and rhythm without murmurs, gallops, or rubs. RESPIRATORY: Breath sounds equal bilaterally. No accessory muscle use. GASTROINTESTINAL: Abdomen soft, non-tender, nondistended. EXTREMITIES: No cyanosis or edema. BACK: Nontender without obvious deformity. No CVA tenderness. NEURO: Patient is alert and oriented. no sensorimotor deficits. Nonfocal. Normal speech. PSYCH: No delusions. No auditory or visual hallucinations. Data Data Last Documented VS Vital Signs Date Time Temp Pulse Resp B/P Pulse Ox O2 Delivery O2 Flow Rate FiO2 07/09/16 02:57 98.1 95 16 150/84 100 MDM Medical Decision Making Medical Screen Exam Complete: Yes Emergency Medical Condition: Yes Medical Record Reviewed: Yes Differential Diagnosis MDM: High Differential diagnoses: Schizophrenia, schizoaffective disorder, bipolar, anxiety, depression, adjustment reaction, mood disorder NOS, ODD, depressive disorder NOS, dementia, dementia with agitation, psychosis NOS, substance induced mood disorder, intermittent explosive disorder, Asperger syndrome, infection,electrolyte abnormality, malingering. Narrative Course Mental health screening discussed with the patient. Psychiatric screen ordered. The patient was just seen less than 24 hours ago. I do not believe that repeating laboratory tests are indicated. The patient will be seen by the psychiatrist I anticipate [place] act being lifted and the patient encouraged to go to detox. Diagnosis Primary Impression: Substance induced mood disorder Additional Impression: Medical clearance for psychiatric admission Condition: Stable Angel Demarco July 09, 2016 03:02
[2016-07-09 06:31] VITALS: BP 180/81; PULSE 90; RESP 18; O2SAT 100
[2016-07-09 08:15] VITALS: BP 144/70; PULSE 81; RESP 14; O2SAT 98
--- NOTE | 2016-07-09 12:12 | PD ---
History of Present Illness Chief Complaint: Psychiatric Symptoms Time Seen by Provider: 12:00 Travel History International Travel<30 Days: No Contact w/Intl Traveler<30days: No Known affected area: No Legal Status Legal Status: [place] Act [place] Act Signed By: Dameon Camarena History of Present Illness: History of Present Illness HPI 60-year-old black male with history of substance use disorder in particular cocaine, who returns to the ER under [place] act stating that he is suicidal because he has not gotten into detox. The report alleges that he called a hotline and told them that he was going to slit his throat and kill himself. He also requested not to be brought to [facility]. The patient was evaluated yesterday by Dr. Ki Conte and released He continues to abuse alcohol and crack cocaine. Patient seen. Case reviewed. Patient sates : I called [facility] and they advised that I get myself to [facility] to get admitted to a substance abuse treatment facility" . He is requesting transportation to a center in [place] at this time. Patient is alert and oriented. there is no psychosis and no adela. He is not suicidal. He is demanding at this time that he get transferred to a substance abuse treatment center in [place]. He is advised of treatment options in this area such as [facility] and provided that information. he then requests and later demands to get a taxi to go home . PFSH Past Medical History Hx Anticoagulant Therapy: Yes (ASPIRIN) Blood Disorders: No Anxiety: Yes Depression: Yes Heart Rhythm Problems: No Cancer: No Cardiovascular Problems: Yes (HTN) High Cholesterol: Yes Chest Pain: Yes Congestive Heart Failure: No COPD: No Diabetes: Yes (Type 2) Patient Takes Glucophage: No Diminished Hearing: No Endocrine: Yes Gastrointestinal Disorders: Yes GERD: Yes Genitourinary: No Hepatitis: Yes (C) Hypertension: Yes Immune Disorder: No Implanted Vascular Access Dvce: No Musculoskeletal: No Neurologic: No Psychiatric: Yes Reproductive: No Respiratory: No Immunizations Current: Yes Sleep Apnea: Yes (CPAP) Tetanus Vaccination: < 5 Years Influenza Vaccination: Yes Past Surgical History Abdominal Surgery: No Cardiac Surgery: No Endocrine Surgery: No Eye Surgery: Yes (RETINA SOCKET REPAIR) Genitourinary Surgery: No Gynecologic Surgery: No Thoracic Surgery: No Other Surgery: Yes (RIGHT HAND, RIGHT EYE) Psychiatric History Psychiatric History Hx Psychiatric Treatment: [facility] last month. History of Inpatient Treatment: Yes Guns or firearms in home: No Social History Lives by himself. Hx Alcohol Use: Yes (beer daily 8 pkg) Hx Tobacco Use: Yes (1 PPD) Hx Substance Use: Yes (Crack cocaine, day of admit) Substance Use Type: Alcohol, Nicotine/Cigarettes, Cocaine Hx of Substance Use Treatment: Yes Family Psychiatric History negative Allergies-Medications (Allergen,Severity, Reaction): Coded Allergies: Lisinopril (Verified Allergy, Unknown, 07/09/16) Reported Meds & Prescriptions Reported Meds & Active Scripts Active Gnp Vitamin B-1 (Thiamine HCl) 100 Mg Tab 100 Mg PO DAILY Omeprazole 20 Mg Tab 20 Mg PO DAILY Aspirin EC (Aspirin) 81 Mg Tabdr 81 Mg PO DAILY Reported Bupropion HCl 75 Mg Tab 150 Mg PO BID Hydrochlorothiazide 12.5 Mg Cap 12.5 Mg PO DAILY Ventolin Hfa 18 GM Inh (Albuterol Sulfate) 90 Mcg/Act Aer 2 Puff INH Q6H PRN Novolin 70-30 Inj (Insulin Human Isoph/Insulin Regular) 1,000 Unit/10 Ml Vial 50 Units SQ BID Methocarbamol 750 Mg Tab 750 Mg PO HS Review of Systems Except as stated in HPI: all other systems reviewed are Neg Exam Alert: Yes Kennard: Person (ox4) Mood: Angry Affect: Appropriate Speech: Clear, Logical Eye Contact: Normal Memory Intact: Comment (no impairmetn) Hallucinations: Other (negative) Suicidal: Ideation (negative) Homicidal: Ideation (Negative) Insight/Judgement Poor. Poor MDM Medical Decision Making Medical Record Reviewed: Yes Assessment/Plan 60 year old male with history od substance use disorder who presents under a BA. At this time patient is requesting treatment for substance use and demanding to be sent to a specific center in [place]. I have advised him of options in [facility] such as [facility]. he does not wish to avail himself of these services at this time and is requesting discharge. At this time he does not present any criteria for BA. Patient at this time does not meet BA . Orders Psych Screen (07/09/16 05:24) Diet 1800 Ada Cons Carb (07/09/16 Breakfast) Results Vital Signs Date Time Temp Pulse Resp B/P Pulse Ox O2 Delivery O2 Flow Rate FiO2 07/09/16 08:15 81 14 144/70 98 Room Air 07/09/16 06:31 90 18 180/81 100 07/09/16 02:57 98.1 95 16 150/84 100 Diagnosis Primary Impression: Medical clearance for psychiatric admission Additional Impression: Polysubstance dependence Ruled Out: Substance induced mood disorder Psychiatrically Cleared: Yes Med/ Other Pt Specific Info: No Meds Exist/No RX given Disposition: DISCHARGE HOME Condition: Stable Problem Qualifiers Geovanna Weber July 09, 2016 12:11
== END 2016-07-09 12:49 | disposition home or self-care (01) ==
LOC: NEPD 02:43
DX: Z02.89 Encounter for other administrative examinations (principal); F19.94 Other psychoactive substance use, unspecified with psychoactive substance-induced mood disorder; F19.20 Other psychoactive substance dependence, uncomplicated; E11.9 Type 2 diabetes mellitus without complications; I10 Essential (primary) hypertension; G47.30 Sleep apnea, unspecified; E78.00 Pure hypercholesterolemia, unspecified; F17.200 Nicotine dependence, unspecified, uncomplicated; Z79.82 Long term (current) use of aspirin; Z79.4 Long term (current) use of insulin; Z86.59 Personal history of other mental and behavioral disorders; Z86.79 Personal history of other diseases of the circulatory system; Z87.19 Personal history of other diseases of the digestive system
CPT/HCPCS: 99283

== ENCOUNTER 2016-09-03 00:16 | Observation (INO) | payer OTHER ==
[~2016-09-03] VITALS: Ht 180.3 cm; Wt 80.0 kg
[2016-09-03] VITALS (10 sets, daily range): BP systolic 142–185; BP diastolic 72–98; PULSE 70–91; RESP 14–20; TEMP 98.3–98.7; O2SAT 94–98
--- NOTE | 2016-09-03 01:02 | RADRPT ---
EXAM DATE/TIME: 09/03/2016 00:27 [facility] COMPARISON: CHEST SINGLE AP, July 05, 2016, 8:24. INDICATIONS : Chest pain. MEDICAL HISTORY : None. SURGICAL HISTORY : None. ENCOUNTER: Initial ACUITY: 1 day PAIN SCORE: 0/10 LOCATION: Bilateral chest FINDINGS: Portable AP view of the chest demonstrates a normal-sized cardiac silhouette. Lungs are underinflated with atelectasis at the lung bases. No effusion or pneumothorax is identified. Bones demonstrate no acute finding. CONCLUSION: Underinflated examination atelectasis at the lung bases. No acute finding is identified. Corey Ayala MD on September 03, 2016 at 1:00 Board Certified Radiologist. This report was verified electronically.
[2016-09-03 01:05] LABS: AUTOMATED NEUTROPHIL # 6.9 TH/MM3 (1.8-7.7); BASOPHIL # 0.1 TH/MM3 (0-0.2); EOSINOPHIL # 0.1 TH/MM3 (0-0.4); EOSINOPHIL % 0.8 % (0.0-4.0); HEMATOCRIT 48.9 % (39.0-51.0); HEMO FLAGS DIFF FINAL; LYMPH % 21.1 % (9.0-44.0); LYMPHOCYTE # 2.1 TH/MM3 (1.0-4.8); MEAN CELL VOLUME 84.8 FL (80.0-100.0); MEAN CORPUSCULAR HEMOGLOBIN 28.4 PG (27.0-34.0); MEAN CORPUSCULAR HGB CONC 33.5 % (32.0-36.0); MONO % 8.4 % (0.0-8.0); NEUT % 68.7 % (16.0-70.0); PLATELET COUNT 278 TH/MM3 (150-450); RED BLOOD COUNT 5.77 MIL/MM3 (4.50-5.90); RED CELL DISTRIBUTION WIDTH 13.8 % (11.6-17.2); WHITE BLOOD COUNT 10.1 TH/MM3 (4.0-11.0)
[2016-09-03 01:22] LABS: BICARBONATE 25.8 MEQ/L (21.0-32.0); POTASSIUM 3.3 MEQ/L (3.5-5.1)
[2016-09-03 01:48] LABS: CKMB 12.6 NG/ML (0.5-3.6)
--- NOTE | 2016-09-03 03:12 | PD ---
HPI Chief Complaint: Chest Pain Time Seen by Provider: 03:05 Travel History International Travel<30 days: No Contact w/Intl Traveler<30days: No Traveled to known affect area: No History of Present Illness HPI Patient comes in the hospital under arrest complaining of left sided chest pain. Patient states chest pain began at 7:00 yesterday morning as a heaviness left side of his chest without radiation. Patient reports associated shortness of breath with this. Patient denies anything making it better or worse. Denies any radiation of pain, generalized muscle aches, diaphoresis, nausea, vomiting, back pain, numbness or tingling anywhere, or doing anything for this. Per triage patient smoked crack cocaine prior to the chest pain starting. Patient denies this. Patient states this is different than his previous chest pain that he is been evaluated here for in the past. Patient states he has not took aspirin for couple of days. Patient states he was going to come earlier for this, but while he was sitting on the wall the police came and arrested him for an outstanding warrant. PFSH Past Medical History Hx Anticoagulant Therapy: Yes (ASPIRIN) Blood Disorders: No Anxiety: Yes Depression: Yes Heart Rhythm Problems: No Cancer: No Cardiovascular Problems: Yes (HTN) High Cholesterol: Yes Chest Pain: Yes Congestive Heart Failure: No COPD: No Diabetes: Yes (Type 2) Patient Takes Glucophage: No Diminished Hearing: No Endocrine: Yes Gastrointestinal Disorders: Yes GERD: Yes Genitourinary: No Hepatitis: Yes (C) Hypertension: Yes Immune Disorder: No Implanted Vascular Access Dvce: No Musculoskeletal: No Neurologic: No Psychiatric: Yes Reproductive: No Respiratory: No Immunizations Current: Yes Sleep Apnea: Yes (CPAP) Past Surgical History Abdominal Surgery: No Cardiac Surgery: No Endocrine Surgery: No Eye Surgery: Yes (RETINA SOCKET REPAIR) Genitourinary Surgery: No Gynecologic Surgery: No Thoracic Surgery: No Other Surgery: Yes (RIGHT HAND, RIGHT EYE) Social History Alcohol Use: Yes (beer daily 8 pkg) Tobacco Use: Yes (1 PPD) Substance Use: Yes (Crack cocaine, day of admit) Allergies-Medications (Allergen,Severity, Reaction): Coded Allergies: Lisinopril (Verified Allergy, Unknown, 09/03/16) Reported Meds & Prescriptions Reported Meds & Active Scripts Active Gnp Vitamin B-1 (Thiamine HCl) 100 Mg Tab 100 Mg PO DAILY Omeprazole 20 Mg Tab 20 Mg PO DAILY Aspirin EC (Aspirin) 81 Mg Tabdr 81 Mg PO DAILY Reported Bupropion HCl 75 Mg Tab 150 Mg PO BID Hydrochlorothiazide 12.5 Mg Cap 12.5 Mg PO DAILY Ventolin Hfa 18 GM Inh (Albuterol Sulfate) 90 Mcg/Act Aer 2 Puff INH Q6H PRN Novolin 70-30 Inj (Insulin Human Isoph/Insulin Regular) 1,000 Unit/10 Ml Vial 50 Units SQ BID Methocarbamol 750 Mg Tab 750 Mg PO HS Review of Systems Except as stated in HPI: all other systems reviewed are Neg Physical Exam Narrative GENERAL: Well-developed, overly nourished, in no acute distress, and non-ill appearing. SKIN: Focused skin assessment warm and dry. HEAD: Atraumatic. Normocephalic. EYES: Pupils equal and round. EOMI. No scleral icterus. No injection or drainage. ENT: No nasal bleeding or discharge. Mucous membranes pink and moist. NECK: Trachea midline. No JVD. Supple. No nuclear rigidity. CARDIOVASCULAR: Regular rate and rhythm. No murmur appreciated. RESPIRATORY: No accessory muscle use. No respiratory distress. Clear to auscultation. Breath sounds equal bilaterally. MUSCULOSKELETAL: No obvious deformities. No clubbing. No cyanosis. No edema. Full range of motion. NEUROLOGICAL: Awake and alert. No obvious cranial nerve deficits. Motor grossly within normal limits. Normal speech. PSYCHIATRIC: Appropriate mood and affect; insight and judgment normal. Data Data Last Documented VS Vital Signs Date Time Temp Pulse Resp B/P Pulse Ox O2 Delivery O2 Flow Rate FiO2 09/03/16 03:50 98 Room Air 09/03/16 03:50 89 20 168/82 09/03/16 00:30 98.7 Orders Electrocardiogram (09/03/16 00:25) Complete Blood Count With Diff (09/03/16 00:25) Basic Metabolic Panel (Bmp) (09/03/16 00:25) Ckmb (Isoenzyme) Profile (09/03/16 00:25) Troponin I (09/03/16 00:25) Chest, Single Ap (09/03/16 00:25) Iv Access Insert/Monitor (09/03/16 00:25) Ecg Monitoring (09/03/16 00:25) Oxygen Administration (09/03/16 00:25) Oximetry (09/03/16 00:25) CKMB (09/03/16 00:40) CKMB% (09/03/16 00:40) Aspirin Chew (Aspirin Chew) (09/03/16 03:15) Potassium Chloride (Kcl) (09/03/16 03:15) Place In Observation (09/03/16 ) Vital Signs (Adult) Q4H (09/03/16 03:47) Activity Bed Rest With Brp (09/03/16 03:47) Meteorological Aide / Telemetry .CONTINUOUS (09/03/16 03:47) Diet 1800 Ada Cons Carb (09/03/16 Breakfast) Diet Heart Healthy (09/03/16 Breakfast) Sodium Chloride 0.9% Flush (Ns Flush) (09/03/16 04:00) Sodium Chloride 0.9% Flush (Ns Flush) (09/03/16 09:00) Comprehensive Metabolic Panel (09/04/16 06:00) Complete Blood Count With Diff (09/04/16 06:00) Creatine Kinase (Cpk) (09/03/16 03:47) Case Management Consult (09/03/16 03:47) Naloxone Inj (Narcan Inj) (09/03/16 04:00) Bedside Glucose ERASMO.AC&HS (09/03/16 03:47) Blood Glucose Goal (Criteria) (09/03/16 03:47) Hypoglycemia 70 Mg/Dl Or < (09/03/16 03:47) Notify Dr: Other (09/03/16 03:47) Dextrose 50% In Say (Vial) Inj (D50w (Vi (09/03/16 04:00) Glucagon Inj (Glucagon Inj) (09/03/16 04:00) Insulin Aspart Supplemtl Scale (Novolog (09/03/16 07:00) Admit Order (Ed Use Only) (09/03/16 03:54) Labs Laboratory Tests Test 09/03/16 00:40 White Blood Count 10.1 TH/MM3 Red Blood Count 5.77 MIL/MM3 Hemoglobin 16.4 GM/DL Hematocrit 48.9 % Mean Corpuscular Volume 84.8 FL Mean Corpuscular Hemoglobin 28.4 PG Mean Corpuscular Hemoglobin 33.5 % Concent Red Cell Distribution Width 13.8 % Platelet Count 278 TH/MM3 Mean Platelet Volume 7.4 FL Neutrophils (%) (Auto) 68.7 % Lymphocytes (%) (Auto) 21.1 % Monocytes (%) (Auto) 8.4 % Eosinophils (%) (Auto) 0.8 % Basophils (%) (Auto) 1.0 % Neutrophils # (Auto) 6.9 TH/MM3 Lymphocytes # (Auto) 2.1 TH/MM3 Monocytes # (Auto) 0.8 TH/MM3 Eosinophils # (Auto) 0.1 TH/MM3 Basophils # (Auto) 0.1 TH/MM3 CBC Comment DIFF FINAL Differential Comment Sodium Level 141 MEQ/L Potassium Level 3.3 MEQ/L Chloride Level 106 MEQ/L Carbon Dioxide Level 25.8 MEQ/L Anion Gap 9 MEQ/L Blood Urea Nitrogen 6 MG/DL Creatinine 1.05 MG/DL Estimat Glomerular Filtration 88 ML/MIN Rate Random Glucose 129 MG/DL Calcium Level 8.8 MG/DL Total Creatine Kinase 1018 U/L Creatine Kinase MB 12.6 NG/ML Creatine Kinase MB % 1.2 % Troponin I 0.07 NG/ML MDM Medical Decision Making Medical Screen Exam Complete: Yes Emergency Medical Condition: Yes Medical Record Reviewed: Yes Interpretation(s) EKG reviewed by Dr. Diamond shows sinus rhythm ventricular rate of 89. No STEMI. Chest x-ray read by the radiologist shows: Underinflated examination atelectasis at the lung bases. No acute finding is identified. Differential Diagnosis Acute coronary syndrome, cocaine abuse, cocaine induced chest pain, GERD, pneumonia, electrolyte abnormality, other Narrative Course Patient medical record reviewed. Shows patient has a history of cocaine and alcohol abuse leading to chest pain. Patient has had elevated troponins along with elevated CK in the past secondary to this. Patient seen and examined. Initial radiological studies were obtained and reviewed. Patient was given aspirin as he is reportedly stopped taking this over the past couple of days. IV was established. Patient's potassium was replaced orally. Patient was placed on a monitoring analyst. Patient's troponin and CK again were elevated. Suspect this is likely secondary to patient's alcohol and cocaine abuse. Discussed patient with Dr. Méndez, who is in agreement with plan of care and disposition. Discussed all findings and plan of care with patient, who is agreeable for admission. Discussed patient with hospitalist, who is agreeable to admit the patient. Patient remained stable throughout ED course. Physician Communication Physician Communication [id number] Chang, who is agreeable to admit the patient. Diagnosis Primary Impression: Chest pain Qualified Code: R07.9 - Chest pain, unspecified type Additional Impressions: Elevated troponin Elevated creatine kinase level Hypokalemia Admitting Information Admitting Physician Requests: Observation Condition: Stable Isaías Thomas Sep 03, 2016 03:12
[2016-09-03] MEDS ORDERED: ASPIRIN 81 MG CHEW TAB PO ONE (03:15)
[2016-09-03] MEDS ORDERED: POTASSIUM CHLORIDE 20 MEQ CONTROLLED RELEASE TAB PO ONE (03:15)
[2016-09-03] MEDS ORDERED: GLUCAGON 1 MG/ML VIAL OTHER PRN (04:00)
[2016-09-03] MEDS ORDERED: NALOXONE HCL 0.4 MG/ML AMP IV PRN (04:00)
[2016-09-03] MEDS ORDERED: SODIUM CHLORIDE 0.9% FLUSH 10 ML FLUSH IV FLUSH PRN (04:00)
[2016-09-03] MEDS ORDERED: DEXTROSE 50% IN WATER 50 ML VIAL(D50) IV PRN (04:00)
[2016-09-03 06:36] LABS: CKMB 11.6 NG/ML (0.5-3.6)
[2016-09-03] MEDS: INSULIN ASPART SUPPLEMENTAL SCALE SQ SCH ×4 (07:00→21:00)
[2016-09-03] MEDS ORDERED: ACETAMINOPHEN 325 MG TAB PO PRN (08:00)
[2016-09-03] MEDS ORDERED: ACETAMINOPHEN/HYDROcodone 325 MG/5 MG TAB PO PRN (08:00)
--- NOTE | 2016-09-03 08:01 | HHI.HP ---
[facility] Ap Cope MD Admission Diagnosis chest pain, elevated troponin, elevated CK, cocaine abuse Diagnoses: (1) Chest pain Diagnosis: Principal Chief Complaint: chest pain Travel History International Travel<30 Days: No Contact w/Intl Traveler <30 Da: No Traveled to Known Affected Are: No History of Present Illness patient is a 60 y/o male with history of diabetes, hypertension, drug abuse, presented to ER with chest pain. he says that the pain started yesterday. pain was on both sides of the chest. it was moderate in intensity and was associated with some sob. he says that his chest is ' tender'. he denies any nausea or emesis.he admits to using cocaine a few hours prior to this presentation. Review of Systems Constitutional: DENIES: Fever, Weight loss, Chills, Night Sweats Eyes: DENIES: Blurred vision, Diplopia, Vision loss, Double Vision Ears, nose, mouth, throat: DENIES: Tinnitus, Vertigo, Throat pain, Epistaxis Respiratory: COMPLAINS OF: Shortness of breath, DENIES: Apneas, Cough, Snoring , Wheezing, Hemoptysis, Sputum production Cardiovascular: COMPLAINS OF: Chest pain, DENIES: Palpitations, Syncope, Dyspnea on Exertion, PND, Lower Extremity Edema, Orthopnea, Claudication Gastrointestinal: DENIES: Abdominal pain, Black stools, Bloody stools, Constipation, Diarrhea, Nausea, Vomiting, Difficulty Swallowing, Anorexia Genitourinary: DENIES: Urinary frequency, Urgency, Hematuria, Dysuria Musculoskeletal: DENIES: Joint pain, Muscle aches, Stiffness, Joint Swelling Integumentary: DENIES: Rash Neurologic: DENIES: Abnormal gait, Headache, Localized weakness, Paresthesias, Seizures, Speech Problems, Tremor, Poor Balance Psychiatric: DENIES: Anxiety, Confusion, Mood changes, Depression, Hallucinations, Agitation, Suicidal Ideation, Homicidal Ideation, Delusions Past Family Social History Past Medical History hypertension diabetes mellitus anxiety Past Surgical History eye surgery Reported Medications Gnp Vitamin B-1 (Thiamine HCl) 100 Mg Tab 100 Mg PO DAILY Omeprazole 20 Mg Tab 20 Mg PO DAILY Aspirin EC (Aspirin) 81 Mg Tabdr 81 Mg PO DAILY Bupropion HCl 75 Mg Tab 150 Mg PO BID Hydrochlorothiazide 12.5 Mg Cap 12.5 Mg PO DAILY Ventolin Hfa 18 GM Inh (Albuterol Sulfate) 90 Mcg/Act Aer 2 Puff INH Q6H PRN Novolin 70-30 Inj (Insulin Human Isoph/Insulin Regular) 1,000 Unit/10 Ml Vial 50 Units SQ BID Methocarbamol 750 Mg Tab 750 Mg PO HS Allergies: Coded Allergies: Lisinopril (Verified Allergy, Unknown, 09/03/16) Active Ordered Medications Current Medications Aspirin (Aspirin Chew) 324 mg ONCE ONCE PO Last administered on 09/03/16 03: 50; Start 09/03/16 at 03:15; Stop 09/03/16 at 03:16; Status DC Potassium Chloride (KCl) 40 meq ONCE ONCE PO Last administered on 09/03/16 03 :50; Start 09/03/16 at 03:15; Stop 09/03/16 at 03:16; Status DC Sodium Chloride (NS Flush) 2 ml UNSCH PRN IV FLUSH FLUSH AFTER USING IV ACCESS ; Start 09/03/16 at 04:00 Sodium Chloride (NS Flush) 2 ml BID IV FLUSH ; Start 09/03/16 at 09:00 Naloxone HCl (Narcan Inj) 0.4 mg UNSCH PRN IV SEE LABEL COMMENTS; Start at 04:00 Dextrose (D50w (Vial) Inj) 50 ml UNSCH PRN IV HYPOGLYCEMIA-SEE COMMENTS; Start 09/03/16 at 04:00 Glucagon (Glucagon Inj) 1 mg UNSCH PRN OTHER HYPOGLYCEMIA-SEE COMMENTS; Start 09/03/16 at 04:00 Insulin Aspart (NovoLOG SUPPLEMENTAL SCALE) 1 ACHS SLIDING SCALE SQ ; Start at 07:00 Family History enlarged heart in father and mother. Social History smokes and drinks daily- uses cocaine. Physical Exam Vital Signs Vital Signs Date Time Temp Pulse Resp B/P Pulse Ox O2 Delivery O2 Flow Rate FiO2 09/03/16 04:50 82 18 160/82 98 Room Air 09/03/16 03:50 98 Room Air 09/03/16 03:50 98 Room Air 09/03/16 03:50 89 20 168/82 98 Room Air 09/03/16 00:30 98.7 91 18 168/87 94 Physical Exam GENERAL: This is a well-nourished, well-developed patient, in no apparent distress. SKIN: No rashes, ecchymoses or lesions. Cool and dry. HEAD: Atraumatic. Normocephalic. No temporal or scalp tenderness. EYES: Pupils equal round and reactive. Extraocular motions intact. No scleral icterus. No injection or drainage. ENT: Nose without bleeding, purulent drainage or septal hematoma. Throat without erythema, tonsillar hypertrophy or exudate. Uvula midline. Airway patent. NECK: Trachea midline. No JVD or lymphadenopathy. Supple, nontender, no meningeal signs. CARDIOVASCULAR: Regular rate and rhythm without murmurs, gallops, or rubs. chest wall is tender to touch. RESPIRATORY: Clear to auscultation. Breath sounds equal bilaterally. No wheezes , rales, or rhonchi. GASTROINTESTINAL: Abdomen soft, non-tender, nondistended. No hepato-splenomegaly , or palpable masses. No guarding. MUSCULOSKELETAL: Extremities without clubbing, cyanosis, or edema. No joint tenderness, effusion, or edema noted. No calf tenderness. Negative Homans sign bilaterally. NEUROLOGICAL: Awake and alert. Cranial nerves II through XII intact. Motor and sensory grossly within normal limits. Five out of 5 muscle strength in all muscle groups. Normal speech. Laboratory Laboratory Tests Test 09/03/16 09/03/16 00:40 04:59 White Blood Count 10.1 Red Blood Count 5.77 Hemoglobin 16.4 Hematocrit 48.9 Mean Corpuscular Volume 84.8 Mean Corpuscular Hemoglobin 28.4 Mean Corpuscular Hemoglobin 33.5 Concent Red Cell Distribution Width 13.8 Platelet Count 278 Mean Platelet Volume 7.4 Neutrophils (%) (Auto) 68.7 Lymphocytes (%) (Auto) 21.1 Monocytes (%) (Auto) 8.4 Eosinophils (%) (Auto) 0.8 Basophils (%) (Auto) 1.0 Neutrophils # (Auto) 6.9 Lymphocytes # (Auto) 2.1 Monocytes # (Auto) 0.8 Eosinophils # (Auto) 0.1 Basophils # (Auto) 0.1 CBC Comment DIFF FINAL Differential Comment Sodium Level 141 Potassium Level 3.3 Chloride Level 106 Carbon Dioxide Level 25.8 Anion Gap 9 Blood Urea Nitrogen 6 Creatinine 1.05 Estimat Glomerular Filtration 88 Rate Random Glucose 129 Calcium Level 8.8 Total Creatine Kinase 1018 862 Creatine Kinase MB 12.6 11.6 Creatine Kinase MB % 1.2 1.3 Troponin I 0.07 Result Diagram: 09/03/163909/03/1639 Imaging Last Impressions Chest X-Ray 09/03/16 0025 Signed Impressions: Service Date/Time: Saturday, September 03, 2016 00:27 - CONCLUSION: Underinflated examination atelectasis at the lung bases. No acute finding is identified. Corey Ayala MD EKG; sinus rhythm with no acute ST-T changes. Assessment and Plan Assessment and Plan A/P - chest pain-used cocaine prior to this presentation received aspirin earlier- will trend the cardiac enzymes- -rhabdomyolysis- start IV fluid and monitor the CPK level -mild hypokalemia; replaced -diabetes mellitus; accu-check with SSI -hypertension; vasotec as needed- continue to monitor Discussed Condition With the patient. Problem Qualifiers (1) Chest pain: Qualified Code: R07.9 - Chest pain, unspecified type Lia Min MD Sep 03, 2016 08:01
[2016-09-03] MEDS: SODIUM CHLOR 0.9% 1000 ML INJ 1,000 ML IV SCH ×2 (08:25→14:05)
[2016-09-03] MEDS ORDERED: PILL SPLITTER OTHER PRN (08:30)
[2016-09-03] MEDS ORDERED: ALBUTEROL SULFATE 90 MCG/ACT HFA 18 GM INHALER INH PRN (08:30)
[2016-09-03] MEDS: SODIUM CHLORIDE 0.9% FLUSH 10 ML FLUSH IV FLUSH SCH ×2 (09:00→21:00)
[2016-09-03 16:09] LABS: CKMB 6.6 NG/ML (0.5-3.6)
--- NOTE | 2016-09-03 18:11 | HHI.DCPOC ---
Discharge Care Plan Diagnosis: (1) Chest pain Your Health Problems Are: Chest Pain Goals to Promote Your Health * To prevent worsening of your condition and complications * To maintain your health at the optimal level Directions to Meet Your Goals Take your medications as prescribed Follow your dietary instruction Follow activity as directed Keep your appointments as scheduled Take your immunizations and boosters as scheduled If your symptoms worsen call your PCP, if no PCP go to Urgent Care Center or Emergency Room Smoking is Dangerous to Your Health. Avoid second hand smoke Call the 24-hour hour crisis hotline for domestic abuse at Lia Min MD Sep 03, 2016 18:10
[2016-09-03] MEDS: ALPRAZolam 0.25 MG TAB PO PRN (20:07)
--- NOTE | 2016-09-03 20:50 | EKG ---
Date Performed: 09/03/2016 Time Performed: 00:40:19 PTAGE: 60 years EKG: Sinus rhythm POSSIBLE LEFT ATRIAL ENLARGEMENT NONSPECIFIC T-WAVE ABNORMALITY BORDERLINE ECG PREVIOUS TRACING : 07/05/2016 17.36 Compared to prior tracing no significant change DOCTOR: Gely Goodman Interpretating Date/Time 09/03/2016 20:49:21
[2016-09-04 00:29] VITALS: PULSE 79
[2016-09-04 00:38] VITALS: BP 177/98; PULSE 68; RESP 18; TEMP 97.8; O2SAT 98
[2016-09-04] MEDS: ALPRAZolam 0.25 MG TAB PO PRN (02:26)
[2016-09-04] MEDS: SODIUM CHLOR 0.9% 1000 ML INJ 1,000 ML IV SCH (02:29)
[2016-09-04 03:39] VITALS: BP 135/61; PULSE 74; RESP 18; TEMP 98.8; O2SAT 98
[2016-09-04 04:01] VITALS: PULSE 78
[2016-09-04] MEDS: INSULIN ASPART SUPPLEMENTAL SCALE SQ SCH (07:00)
[2016-09-04 07:44] VITALS: BP 136/86; PULSE 75; RESP 16; TEMP 98.5; O2SAT 98
[2016-09-04] MEDS ORDERED: ASPIRIN EC 81 MG TABEC PO SCH (09:00)
[2016-09-04 09:07] LABS: AUTOMATED NEUTROPHIL # 5.9 TH/MM3 (1.8-7.7); BASOPHIL # 0.1 TH/MM3 (0-0.2); BASOPHIL % 0.6 % (0.0-2.0); EOSINOPHIL # 0.2 TH/MM3 (0-0.4); EOSINOPHIL % 1.7 % (0.0-4.0); HEMATOCRIT 50.5 % (39.0-51.0); HEMO FLAGS DIFF FINAL; LYMPH % 31.7 % (9.0-44.0); LYMPHOCYTE # 3.3 TH/MM3 (1.0-4.8); MEAN CELL VOLUME 85.1 FL (80.0-100.0); MEAN CORPUSCULAR HEMOGLOBIN 28.5 PG (27.0-34.0); MEAN CORPUSCULAR HGB CONC 33.5 % (32.0-36.0); MONO % 9.4 % (0.0-8.0); NEUT % 56.6 % (16.0-70.0); PLATELET COUNT 264 TH/MM3 (150-450); RED BLOOD COUNT 5.93 MIL/MM3 (4.50-5.90); RED CELL DISTRIBUTION WIDTH 13.9 % (11.6-17.2); WHITE BLOOD COUNT 10.3 TH/MM3 (4.0-11.0)
[2016-09-04 09:17] LABS: ANION GAP 8 MEQ/L (5-15); AST (GOT) 18 U/L (15-37); BICARBONATE 24.4 MEQ/L (21.0-32.0); BLOOD UREA NITROGEN 13 MG/DL (7-18); CHLORIDE 106 MEQ/L (98-107); GLOMERULAR FILTRATION RATE 95 ML/MIN (>89); POTASSIUM 4.1 MEQ/L (3.5-5.1); SODIUM (NA) 138 MEQ/L (136-145)
[2016-09-04 09:18] LABS: ALT (GPT) 34 U/L (12-78)
[2016-09-04 09:21] LABS: ALKALINE PHOSPHATASE 96 U/L (45-117); TOTAL BILIRUBIN ADULT 0.4 MG/DL (0.2-1.0)
[2016-09-04] MEDS ORDERED: IBUPROFEN 600 MG TAB PO ONE (10:20)
--- NOTE | 2016-09-04 10:26 | HHI.PR ---
Subjective Remarks Follow up for chest pain. The patient denies any further chest pains. He complains of diffuse muscle aches at the shoulder, back, and legs. Explained this is likely from cocaine abuse and mild rhabdomyolysis that is improving. Of note, patient currently in handcuffs, [place] police sergeant at bedside says if he is still in the hospital this afternoon, he will have an [id number] court date ; otherwise if medically released this morning the patient would have to go to [place] [facility]. The patient then complains that he can't walk although nursing staff saw him ambulating to the restroom. Asked RN to walk this patient, reports the patient was unsteady on his feet. Objective Vitals Vital Signs Date Time Temp Pulse Resp B/P Pulse Ox O2 Delivery O2 Flow Rate FiO2 09/04/16 07:44 98.5 75 16 136/86 98 09/04/16 04:01 78 09/04/16 03:39 98.8 74 18 135/61 98 09/04/16 00:38 97.8 68 18 177/98 98 09/04/16 00:29 79 09/03/16 20:26 70 09/03/16 20:11 98.4 78 20 143/98 98 09/03/16 18:01 16 09/03/16 16:23 98.3 77 14 143/73 98 09/03/16 13:54 98.6 80 18 185/96 97 09/03/16 10:25 87 16 153/85 98 I/O 09/03/16 09/03/16 09/03/16 09/04/16 09/04/16 09/04/16 07:00 15:00 23:00 07:00 15:00 23:00 Intake Total 100 ml 450 ml Output Total 400 ml Balance 100 ml 50 ml Intake Oral 250 ml IV Total 100 ml 200 ml Output Urine Total 400 ml Result Diagram: 09/04/1681709/04/16817 Imaging Last Impressions Chest X-Ray 09/03/16 0025 Signed Impressions: Service Date/Time: Saturday, September 03, 2016 00:27 - CONCLUSION: Underinflated examination atelectasis at the lung bases. No acute finding is identified. Corey Ayala MD Objective Remarks GENERAL: Well-nourished, well-developed middle aged AA male patient in NAD. SKIN: Warm and dry. No rash. HEENT: Normocephalic. Atraumatic. Pupils equal and round. Mucous membranes pink and moist. NECK: Supple. Trachea midline. CARDIOVASCULAR: Regular rate and rhythm. S1, S2 noted. No murmur appreciated. RESPIRATORY: No accessory muscle use. Clear to auscultation. Breath sounds equal bilaterally. GASTROINTESTINAL: Abdomen soft, non-tender, nondistended. Normoactive bowel sounds x4. MUSCULOSKELETAL: No obvious deformities. Extremities without clubbing, cyanosis , or edema. NEUROLOGICAL: Awake and alert. No obvious cranial nerve deficits. Motor grossly within normal limits. 5/5 muscle strength in bilateral upper and lower extremities. Normal speech. Medications and IVs Current Medications Medications (Trade) Dose Ordered Sig/Salas Route Start Time Stop Time Status Last Admin (NS Flush) 2 ml UNSCH PRN IV FLUSH 09/03/16 04:00 (NS Flush) 2 ml BID IV FLUSH 09/03/16 09:00 09/03/16 21:00 (Narcan Inj) 0.4 mg UNSCH PRN IV 09/03/16 04:00 (D50w (Vial) Inj) 50 ml UNSCH PRN IV 09/03/16 04:00 Glucagon 1 mg 1 mg UNSCH PRN OTHER 09/03/16 04:00 (NS 1000 ml Inj) 1,000 ml @ 100 mls/hr Q10H IV 09/03/16 08:00 09/04/16 02:29 (Ecotrin Ec) 81 mg DAILY PO 09/04/16 09:00 (Tylenol) 650 mg Q4H PRN PO 09/03/16 08:00 (Ventolin Hfa Inh) 2 puff Q6H PRN INH 09/03/16 08:30 ([place] 5-325 Mg) 1 tab Q4H PRN PO 09/03/16 08:00 09/03/16 17:01 (Xanax) 0.125 mg Q6H PRN PO 09/03/16 08:00 09/04/16 02:26 (Pill Splitter) 1 ea UNSCH PRN OTHER 09/03/16 08:30 (Motrin) 600 mg ONCE ONCE PO 09/04/16 10:00 09/04/16 10:01 UNV A/P Problem List: (1) Chest pain ICD Code: R07.9 Status: Resolved Assessment and Plan 60 y/o male with history of diabetes, hypertension, drug abuse, presented to ER with chest pain, currently under police custody Chest pain: suspect secondary to cocaine use 2hrs prior to arrival. Given aspirin. Trended serial cardiac enzymes flat at 0.07, 0.07, 0.06, suspect slight elevation secondary to rhabdomyolysis with elevated CPK. EKG without acute ischemic changes. Chest pain resolved. Recommended outpatient stress test at the [facility]. Mild Rhabdomyolysis: suspect secondary to drug use/dehydration. Given IV fluid. Repeat serial CPKs trending down, 1018 --> 862 --> 504. Encouraged continued oral hydration after discharge. Mild hypokalemia: replaced, repeat K 4.1. Diabetes mellitus: monitor accu-checks and cover with SSI. Diabetic diet. Hypoglycemia protocol. Hypertension: IV vasotec as needed. Continued patient's HCTZ at discharge. Continue to monitor BP. Improved this morning. Cocaine/Polysubstance Abuse: counseled on cessation. Stressed importance of avoiding all drugs, especially cocaine, as he is certainly at high risk for heart attack. Patient has been given resources for drug rehab including information on [facility] on previous admissions. Will again refer to [facility] after discharge. Weakness: patient complaining of diffuse muscle aches and weakness, possibly secondary to mild rhabdo as above however suspect component of malingering and prolonging discharge. He only complained of this after he was told he was medically cleared for discharge. police officer at bedside reports patient to have [id number] court date this afternoon if still in the hospital; otherwise if released will go to [place] [facility] this morning. RN attempted to ambulate the patient, reportedly unsteady, however was witnessed ambulating to the restroom yesterday and overnight without difficulty. PT eval requested. Discharge Planning Discharge if cleared by PT. 1130hrs: Patient seen by PT, recommends walker for stability otherwise no PT needed, cleared for discharge. Case management has arranged a walker. Will discharge. Discharge patient to law enforcement custody Condition on discharge: Improved Heart Healthy/Diabetic Diet as tolerated Ad Rosemarie activity Rx written: no new meds, walker provided Follow-up with primary care physician within 1 week Outpatient stress test recommended Problem Qualifiers (1) Chest pain: Qualified Code: R07.9 - Chest pain, unspecified type Leonor Vee PA-C Sep 04, 2016 10:25
[2016-09-04] MEDS ORDERED: WALKER WHEELS/F1 MIS (11:47)
[2016-09-04 11:58] VITALS: BP 172/94; PULSE 88; RESP 18; TEMP 98.8; O2SAT 98
[2016-09-04] MEDS: SODIUM CHLORIDE 0.9% FLUSH 10 ML FLUSH IV FLUSH SCH (12:11)
[2016-09-04 18:09] LABS: HEMOGLOBIN A1a 1.3 %; HEMOGLOBIN A1b 1.8 %; HEMOGLOBIN Ao 83.4 %; HEMOGLOBIN P3 3.8 %
== END 2016-09-04 12:37 ==
LOC: NEDAMB 00:16 → NEDA 03:55 → NEPFCDU 13:42
PROVIDERS: ADMIT Hospitalist; ATTEND Hospitalist
DX: R07.9 Chest pain, unspecified (principal); M62.82 Rhabdomyolysis; R06.02 Shortness of breath; R53.1 Weakness; E87.6 Hypokalemia; E11.9 Type 2 diabetes mellitus without complications; I10 Essential (primary) hypertension; F14.10 Cocaine abuse, uncomplicated; F41.9 Anxiety disorder, unspecified; F32.9 Major depressive disorder, single episode, unspecified; K21.9 Gastro-esophageal reflux disease without esophagitis; B19.20 Unspecified viral hepatitis C without hepatic coma; F17.200 Nicotine dependence, unspecified, uncomplicated; G47.30 Sleep apnea, unspecified; E78.00 Pure hypercholesterolemia, unspecified; Z79.899 Other long term (current) drug therapy; Z79.82 Long term (current) use of aspirin; Z79.4 Long term (current) use of insulin
CPT/HCPCS: 71010; 80048; 80053; 82550; 82552; 82948; 83036; 84484; 85025; 93005; 97161; 99285; G0378; G8987; G8988; J7030

== ENCOUNTER 2016-09-25 04:34 | Emergency (ER) | payer OTHER ==
[~2016-09-25] VITALS: Ht 172.7 cm; Wt 85.0 kg
[~2016-09-25 04:34] MED LIST changes: +WALKER WHEELS/F1 MIS
[2016-09-25 04:39] VITALS: BP 127/82; PULSE 108; RESP 16; TEMP 98.9; O2SAT 96
--- NOTE | 2016-09-25 04:46 | PD ---
HPI Chief Complaint: Fall Time Seen by Provider: 04:38 Travel History International Travel<30 days: No Contact w/Intl Traveler<30days: No Traveled to known affect area: No History of Present Illness HPI 60-year-old male presents via EMS for evaluation after mechanical fall. Pressure over the patient reports that he was walking through some yard when he tripped and fell, striking his forehead against a rock. Denies loss of consciousness. He is complaining of posterior neck pain and frontal forehead pain. Pain is mild, aching, constant. He denies any blurred vision, nausea or vomiting, confusion or amnesia, numbness or tingling or weakness in extremities , pain in the extremities, chest pain or shortness of breath, abdominal pain. His last tetanus vaccination was 1 year ago. He takes an aspirin on a daily basis. Denies any other anticoagulation. He has no other complaints at this time. PFSH Past Medical History Hx Anticoagulant Therapy: Yes (ASPIRIN) Blood Disorders: No Anxiety: Yes Depression: Yes Heart Rhythm Problems: No Cancer: No Cardiovascular Problems: Yes (HTN) High Cholesterol: Yes Chest Pain: Yes Congestive Heart Failure: No COPD: No Diabetes: Yes (Type 2) Patient Takes Glucophage: No Diminished Hearing: No Endocrine: Yes Gastrointestinal Disorders: Yes GERD: Yes Genitourinary: No Hepatitis: Yes (C) Hypertension: Yes Immune Disorder: No Implanted Vascular Access Dvce: No Musculoskeletal: No Neurologic: No Psychiatric: Yes Reproductive: No Respiratory: No Immunizations Current: Yes Sleep Apnea: Yes (CPAP) Tetanus Vaccination: < 5 Years Influenza Vaccination: Yes Past Surgical History Abdominal Surgery: No Cardiac Surgery: No Endocrine Surgery: No Eye Surgery: Yes (RETINA SOCKET REPAIR) Genitourinary Surgery: No Gynecologic Surgery: No Thoracic Surgery: No Other Surgery: Yes (RIGHT HAND, RIGHT EYE) Social History Alcohol Use: Yes (beer daily 8 pkg) Tobacco Use: Yes (1 PPD) Substance Use: Yes (Crack cocaine, day of admit) Allergies-Medications (Allergen,Severity, Reaction): Coded Allergies: lisinopril (Unverified Allergy, Unknown, 09/25/16) Reported Meds & Prescriptions Reported Meds & Active Scripts Active Walker with Front Wheels (Device) 1 Mis Mis 1 Ea .ROUTE DIRECTED Gnp Vitamin B-1 (Thiamine HCl) 100 Mg Tab 100 Mg PO DAILY Omeprazole 20 Mg Tab 20 Mg PO DAILY Aspirin EC (Aspirin) 81 Mg Tabdr 81 Mg PO DAILY Reported Gabapentin 600 Mg Tab 600 Mg PO BID Bupropion HCl 75 Mg Tab 150 Mg PO BID Hydrochlorothiazide 12.5 Mg Cap 12.5 Mg PO DAILY Ventolin Hfa 18 GM Inh (Albuterol Sulfate) 90 Mcg/Act Aer 2 Puff INH Q6H PRN Novolin 70-30 Inj (Insulin Human Isoph/Insulin Regular) 1,000 Unit/10 Ml Vial 50 Units SQ BID Methocarbamol 750 Mg Tab 750 Mg PO HS Review of Systems Except as stated in HPI: all other systems reviewed are Neg Physical Exam Narrative GENERAL: Well developed well-nourished male in no acute distress cervical collar in place laying on backboard. The patient was log rolled off the backboard using spinal precautions. SKIN: Warm and dry. Neurologically oriented linear laceration to the left forehead/eyebrow. HEAD: Skin As noted above with no underlying bony step-off. Normocephalic. EYES: Pupils equal and round reactive to light extraocular muscles are intact no periorbital ecchymosis. No scleral icterus. No injection or drainage. ENT: No nasal bleeding or discharge. Mucous membranes pink and moist. NECK: Trachea midline. No JVD. CARDIOVASCULAR: Regular rate and rhythm. No murmur appreciated. RESPIRATORY: No accessory muscle use. Clear to auscultation. Breath sounds equal bilaterally. GASTROINTESTINAL: Abdomen soft, non-tender, nondistended. MUSCULOSKELETAL: No obvious deformities. No tenderness to palpation along the cervical thoracic or lumbar midline spine. NEUROLOGICAL: Awake and alert. No obvious cranial nerve deficits. Motor grossly within normal limits. Normal speech. Data Data Last Documented VS Vital Signs Date Time Temp Pulse Resp B/P Pulse Ox O2 Delivery O2 Flow Rate FiO2 09/25/16 04:39 98.9 108 16 127/[address] Brain W/O Iv Contrast(Rout) (09/25/16 ) Ct Cerv Spine W/O Contrast (09/25/16 ) MDM Medical Decision Making Medical Screen Exam Complete: Yes Emergency Medical Condition: Yes Medical Record Reviewed: Yes Differential Diagnosis Cervical strain, fracture, spinal cord injury, closed head injury, facial laceration, intracranial hemorrhage, skull fracture Narrative Course 60-year-old male presents after mechanical fall with headache, neck pain, laceration to the forehead. Laceration was repaired with Dermabond, he verbally consented. CT imaging of the brain and cervical spine will be obtained. CT imaging reveals no acute abnormalities. The cervical collar was removed. The patient is stable for discharge. Procedures Procedure Narrative LACERATION LOCATION: Forehead LENGTH: 1 cm NUMBER OF STITCHES/GARY: Dermabond REPAIR: The wound was copiously irrigated and explored without evidence of foreign body, tendon injury or neurovascular injury. The wound was closed using Dermabond. This was a single layer repair. A sterile dressing was applied. The patient was advised to keep the dressing clean and dry. Patient tolerated the procedure well. Diagnosis Primary Impression: Facial laceration Qualified Code: S01.81XA - Facial laceration, initial encounter Additional Impression: Cervical strain Qualified Code: S16.1XXA - Strain of neck muscle, initial encounter Additional Instructions: Keep the wound clean and dry. Do not put any creams or lotions on the wound. The glue flake off over the next few weeks. Med/Other Pt SpecificInfo: Wound Care Disposition: 01 DISCHARGE HOME Condition: Stable Jose Armando Kumar Sep 25, 2016 04:46
--- NOTE | 2016-09-25 05:15 | RADRPT ---
EXAM DATE/TIME: 09/25/2016 05:00 [facility] COMPARISON: No previous studies available for comparison. INDICATIONS : Fell hittting forehead. RADIATION DOSE: 39.76 CTDIvol (mGy) MEDICAL HISTORY : Hypertension. Diabetes mellitus type 2. Hepatitis C. SURGICAL HISTORY : None. ENCOUNTER: Initial ACUITY: 1 day PAIN SCALE: 0/10 LOCATION: cranial TECHNIQUE: Multiple contiguous axial images were obtained of the head. Using automated exposure control and adj ustment of the mA and/or kV according to patient size, radiation dose was kept as low as reasonably a chievable to obtain optimal diagnostic quality images. DICOM format image data is available electro nically for review and comparison. FINDINGS: CEREBRUM: The ventricles are normal for age. No evidence of midline shift, mass lesion, hemorrhage or acute in farction. No extra-axial fluid collections are seen. POSTERIOR FOSSA: The cerebellum and brainstem are intact. The 4th ventricle is midline. The cerebellopontine angle i s unremarkable. EXTRACRANIAL: The visualized portion of the orbits is intact. SKULL: The calvaria is intact. No evidence of skull fracture. CONCLUSION: Negative noncontrast CT brain. Lemuel Millan MD on September 25, 2016 at 5:13 Board Certified Radiologist. This report was verified electronically.
--- NOTE | 2016-09-25 05:20 | RADRPT ---
EXAM DATE/TIME: 09/25/2016 05:00 [facility] COMPARISON: CT CERVICAL SPINE W/O CONTRAST, March 14, 2015, 12:28. INDICATIONS : Trauma. Fall. RADIATION DOSE: 21.44 CTDIvol (mGy) MEDICAL HISTORY : Hypertension. Diabetes mellitus type 2. Hepatitis C. SURGICAL HISTORY : None. ENCOUNTER: Initial ACUITY: 1 day PAIN SCALE: 0/10 LOCATION: neck TECHNIQUE: Volumetric scanning of the cervical spine was performed. Multiplanar reconstructions in the sagittal, coronal and oblique axial planes were performed. Using automated exposure control and adjustment o f the mA and/or kV according to patient size, radiation dose was kept as low as reasonably achievable to obtain optimal diagnostic quality images. DICOM format image data is available electronically f or review and comparison. FINDINGS: There is straightening of the upper cervical lordosis. No evidence of compression deformity. Discog enic and uncovertebral joint degenerative changes at C3-4 similar in appearance to prior exam in 2015. There is been progression of the degenerative changes in the right facet joint at C5-6 wi th development of subchondral cysts on both sides of the joint. No evidence of locked or perched fac ets. C2-C3: No fracture seen. The neural foramina are patent. C3-C4: No fracture seen. Moderate severity bilateral bony neural foraminal stenosis and bilateral uncoverte bral joint hypertrophy, stable from prior. C4-C5: No fracture seen. Mild bilateral bony neural foraminal stenosis. C5-C6: No fracture seen. The neural foramina are patent. C6-C7: No fracture seen. The neural foramina are patent. C7-T1: No fracture seen. The neural foramina are patent. CONCLUSION: 1. No evidence of compression deformity or spondylolisthesis. 2. Stable appearance to discogenic and uncovertebral joint hypertrophy in the mid cervical spine. Pr ogression of right-sided facet joint degenerative changes at the C5-6 level when compared to March 2015. Lemuel Millan MD on September 25, 2016 at 5:14 Board Certified Radiologist. This report was verified electronically.
[2016-09-25] MEDS ORDERED: GABA600T PO (05:27)
[2016-09-25] MEDS ORDERED: ACETAMINOPHEN 325 MG TAB PO ONE (05:30)
== END 2016-09-25 06:20 | disposition home or self-care (01) ==
LOC: NEPD 04:34
DX: S01.81XA Laceration without foreign body of other part of head, initial encounter (principal); S16.1XXA Strain of muscle, fascia and tendon at neck level, initial encounter; Y92.007 Garden or yard of unspecified non-institutional (private) residence as the place of occurrence of the external cause; Y93.01 Activity, walking, marching and hiking; W01.198A Fall on same level from slipping, tripping and stumbling with subsequent striking against other object, initial encounter; I10 Essential (primary) hypertension; E11.9 Type 2 diabetes mellitus without complications; K21.9 Gastro-esophageal reflux disease without esophagitis; G47.30 Sleep apnea, unspecified; F17.210 Nicotine dependence, cigarettes, uncomplicated
CPT/HCPCS: 12011; 70450; 72125

== ENCOUNTER 2016-10-09 13:34 | Emergency (ER) | payer OTHER ==
[~2016-10-09] VITALS: Ht 177.8 cm; Wt 85.0 kg
[~2016-10-09 13:34] MED LIST changes: +GABA600T PO
[2016-10-09 13:36] VITALS: BP 127/65; PULSE 99; RESP 20; TEMP 98.7; O2SAT 95
--- NOTE | 2016-10-09 13:42 | PD ---
Physical Exam Time Seen by Provider: 13:37 Narrative 60yo M c/o feeling weak starting today at 1130. Sweaty. Says he's diabetic. Reports SOB. Says he's drank 2 beers today. BSG in triage 69. Patient seen in triage. VS reviewed. Patient taken to med bed from triage. Data Data Last Documented VS Vital Signs Date Time Temp Pulse Resp B/P (MAP) Pulse Ox O2 Delivery O2 Flow Rate FiO2 10/09/16 13:36 98.7 99 20 127/65 (85) 95 Room Air MDM Supervised Visit with REINA: Sarah Aquino Oct 09, 2016 13:42
[2016-10-09 13:47] VITALS: BP 121/66; PULSE 89; RESP 18; TEMP 98.3
[2016-10-09] MEDS: DEXTROSE 50% IN WATER 50 ML VIAL(D50) IV PUSH ONE ×2 (14:00→14:06)
[2016-10-09] MEDS ORDERED: SODIUM CHLORIDE 0.9% FLUSH 10 ML FLUSH IVF PRN (14:00)
[2016-10-09] MEDS ORDERED: DEXTROSE 50% IN WATER 50 ML SYRINGE ONE (14:02)
[2016-10-09 14:10] VITALS: RESP 18; O2SAT 98
[2016-10-09 14:15] LABS: AUTOMATED NEUTROPHIL # 5.8 TH/MM3 (1.8-7.7); BASOPHIL # 0.1 TH/MM3 (0-0.2); EOSINOPHIL # 0.1 TH/MM3 (0-0.4); EOSINOPHIL % 0.9 % (0.0-4.0); HEMATOCRIT 52.2 % (39.0-51.0); HEMO FLAGS DIFF FINAL; LYMPH % 39.9 % (9.0-44.0); LYMPHOCYTE # 4.9 TH/MM3 (1.0-4.8); MEAN CELL VOLUME 85.8 FL (80.0-100.0); MEAN CORPUSCULAR HEMOGLOBIN 27.5 PG (27.0-34.0); MEAN CORPUSCULAR HGB CONC 32.1 % (32.0-36.0); MONO % 10.5 % (0.0-8.0); NEUT % 47.7 % (16.0-70.0); PLATELET COUNT 292 TH/MM3 (150-450); RED BLOOD COUNT 6.08 MIL/MM3 (4.50-5.90); RED CELL DISTRIBUTION WIDTH 14.3 % (11.6-17.2); WHITE BLOOD COUNT 12.2 TH/MM3 (4.0-11.0)
--- NOTE | 2016-10-09 14:25 | PD ---
HPI Chief Complaint: General Weakness Time Seen by Provider: 13:51 Travel History International Travel<30 days: No Contact w/Intl Traveler<30days: No Traveled to known affect area: No History of Present Illness HPI Patient comes emergency Department complaining of feeling weak, dizzy, and diaphoretic that began around 11:30 this morning. Patient is a history of diabetes and took his insulin this morning. Patient reports that he ate breakfast afterwards. Patient states he has drank 2 beers today. Patient denies any chest pain, nausea, vomiting, headaches, numbness or tingling anywhere. Patient wishes feeling weak all over and having some associated shortness of breath with this. PFSH Past Medical History Hx Anticoagulant Therapy: Yes (ASPIRIN) Blood Disorders: No Anxiety: Yes Depression: Yes Heart Rhythm Problems: No Cancer: No Cardiovascular Problems: Yes (HTN) High Cholesterol: Yes Chest Pain: Yes Congestive Heart Failure: No COPD: No Diabetes: Yes Patient Takes Glucophage: No Diminished Hearing: No Endocrine: Yes Gastrointestinal Disorders: Yes GERD: Yes Genitourinary: No Hepatitis: Yes (C) Hypertension: Yes Immune Disorder: No Implanted Vascular Access Dvce: No Musculoskeletal: No Neurologic: No Psychiatric: Yes Reproductive: No Respiratory: No Immunizations Current: Yes Sleep Apnea: Yes (CPAP) Tetanus Vaccination: < 5 Years Influenza Vaccination: Yes Past Surgical History Abdominal Surgery: No Cardiac Surgery: No Endocrine Surgery: No Eye Surgery: Yes (RETINA SOCKET REPAIR) Genitourinary Surgery: No Gynecologic Surgery: No Thoracic Surgery: No Other Surgery: Yes (RIGHT HAND, RIGHT EYE) Social History Alcohol Use: Yes (beer daily 8 pkg) Tobacco Use: Yes (1 PPD) Substance Use: Yes (Crack cocaine, day of admit) Allergies-Medications (Allergen,Severity, Reaction): Coded Allergies: lisinopril (Unverified Allergy, Unknown, 10/09/16) Reported Meds & Prescriptions Reported Meds & Active Scripts Active Walker with Front Wheels (Device) 1 Mis Mis 1 Ea .ROUTE DIRECTED Gnp Vitamin B-1 (Thiamine HCl) 100 Mg Tab 100 Mg PO DAILY Omeprazole 20 Mg Tab 20 Mg PO DAILY Aspirin EC (Aspirin) 81 Mg Tabdr 81 Mg PO DAILY Reported Gabapentin 600 Mg Tab 600 Mg PO BID Bupropion HCl 75 Mg Tab 150 Mg PO BID Hydrochlorothiazide 12.5 Mg Cap 12.5 Mg PO DAILY Ventolin Hfa 18 GM Inh (Albuterol Sulfate) 90 Mcg/Act Aer 2 Puff INH Q6H PRN Novolin 70-30 Inj (Insulin Human Isoph/Insulin Regular) 1,000 Unit/10 Ml Vial 50 Units SQ BID Methocarbamol 750 Mg Tab 750 Mg PO HS Review of Systems Except as stated in HPI: all other systems reviewed are Neg Physical Exam Narrative GENERAL: Well-developed, well nourished, in no acute distress, and non-ill appearing. SKIN: Diaphoretic. HEAD: Atraumatic. Normocephalic. EYES: Pupils equal and round. EOMI. No scleral icterus. No injection or drainage. ENT: No nasal bleeding or discharge. Mucous membranes pink and moist. NECK: Trachea midline. No JVD. Supple. No nuclear rigidity. CARDIOVASCULAR: Regular rate and rhythm. No murmur appreciated. RESPIRATORY: No accessory muscle use. No respiratory distress. Clear to auscultation. Breath sounds equal bilaterally. GASTROINTESTINAL: Abdomen soft, non-tender, nondistended, and no guarding. Hepatic and splenic margins not palpable. No pulsatile mass. MUSCULOSKELETAL: No obvious deformities. No clubbing. No cyanosis. No edema. Full range of motion. No pronator drift. Smile symmetrical. Equal rise and fall the eyebrows. Strength equal bilateral upper and lower extremities. NEUROLOGICAL: Awake and alert. No obvious cranial nerve deficits. Motor grossly within normal limits. Normal speech. PSYCHIATRIC: Appropriate mood and affect; insight and judgment normal. Data Data Last Documented VS Vital Signs Date Time Temp Pulse Resp B/P (MAP) Pulse Ox O2 Delivery O2 Flow Rate FiO2 10/09/16 19:49 10/09/16 15:41 94 20 95 Room Air 10/09/16 13:47 98.3 Orders Orders Electrocardiogram (10/09/16 13:52) Basic Metabolic Panel (Bmp) (10/09/16 13:52) Ckmb (Isoenzyme) Profile (10/09/16 13:52) Complete Blood Count With Diff (10/09/16 13:52) Magnesium (Mg) (10/09/16 13:52) Prothrombin Time / Inr (Pt) (10/09/16 13:52) Act Partial Throm Time (Ptt) (10/09/16 13:52) Troponin I (10/09/16 13:52) Chest, Single Ap (10/09/16 13:52) Ecg Monitoring (10/09/16 13:52) Bilateral Bp Monitoring (10/09/16 13:52) Iv Access Insert/Monitor (10/09/16 13:52) Oximetry (10/09/16 13:52) Oxygen Administration (10/09/16 13:52) Sodium Chloride 0.9% Flush (Ns Flush) (10/09/16 14:00) Ct Brain W/O Iv Contrast(Rout) (10/09/16 ) Dextrose 50% In Say (Vial) Inj (D50w (Vi (10/09/16 14:00) Drug Screen, Random Urine (10/09/16 13:58) Dextrose 50% In Say (Syr) Inj (D50w (Syr (10/09/16 14:02) Alcohol (Ethanol) (10/09/16 14:00) CKMB (10/09/16 14:00) CKMB% (10/09/16 14:00) Sodium Chlor 0.9% 1000 Ml Inj (Ns 1000 M (10/09/16 15:15) Aspirin Chew (Aspirin Chew) (10/09/16 15:15) Electrocardiogram (10/09/16 16:54) Ckmb (Isoenzyme) Profile (10/09/16 16:54) Troponin I (10/09/16 16:54) CKMB (10/09/16 18:05) CKMB% (10/09/16 18:05) Labs Laboratory Tests Test 10/09/16 14:00 10/09/16 16:00 10/09/16 18:05 White Blood Count 12.2 TH/MM3 Red Blood Count 6.08 MIL/MM3 Hemoglobin 16.7 GM/DL Hematocrit 52.2 % Mean Corpuscular Volume 85.8 FL Mean Corpuscular Hemoglobin 27.5 PG Mean Corpuscular Hemoglobin Concent 32.1 % Red Cell Distribution Width 14.3 % Platelet Count 292 TH/MM3 Mean Platelet Volume 7.5 FL Neutrophils (%) (Auto) 47.7 % Lymphocytes (%) (Auto) 39.9 % Monocytes (%) (Auto) 10.5 % Eosinophils (%) (Auto) 0.9 % Basophils (%) (Auto) 1.0 % Neutrophils # (Auto) 5.8 TH/MM3 Lymphocytes # (Auto) 4.9 TH/MM3 Monocytes # (Auto) 1.3 TH/MM3 Eosinophils # (Auto) 0.1 TH/MM3 Basophils # (Auto) 0.1 TH/MM3 CBC Comment DIFF FINAL Differential Comment Prothrombin Time 11.8 SEC Prothromb Time International Ratio 1.1 RATIO Activated Partial Thromboplast Time 25.2 SEC Blood Urea Nitrogen 11 MG/DL Creatinine 1.26 MG/DL Random Glucose 70 MG/DL Calcium Level 8.7 MG/DL Magnesium Level 2.1 MG/DL Sodium Level 140 MEQ/L Potassium Level 3.9 MEQ/L Chloride Level 105 MEQ/L Carbon Dioxide Level 24.9 MEQ/L Anion Gap 10 MEQ/L Estimat Glomerular Filtration Rate 71 ML/MIN Total Creatine Kinase 1056 U/L 846 U/L Creatine Kinase MB 13.9 NG/ML 9.0 NG/ML Creatine Kinase MB % 1.3 % 1.1 % Troponin I 0.06 NG/ML 0.06 NG/ML Ethyl Alcohol Level 52 MG/DL Urine Opiates Screen NEG Urine Barbiturates Screen NEG Urine Amphetamines Screen NEG Urine Benzodiazepines Screen NEG Urine Cocaine Screen POS Urine Cannabinoids Screen POS MDM Medical Decision Making Medical Screen Exam Complete: Yes Emergency Medical Condition: Yes Interpretation(s) EKG reviewed by Dr. Peacock shows sinus rhythm with ventricular rate of 86. No STEMI. CT the head shows read by the radiologist: No evidence of acute intracranial pathology. No masses are identified. Chest x-ray read by the radiologist shows: No acute disease. Repeat EKG reviewed by Dr. Peacock shows sinus rhythm with ventricular rate of 96. No STEMI. Differential Diagnosis Acute coronary syndrome, pneumonia, CVA, TIA, substance abuse, hypokalemia, other Narrative Course 1425 reassessed the patient denies any change in symptoms but is now asking something to eat or drink. Patient admitted to staffing executive that he smoked crack cocaine yesterday. Patient's medical records were reviewed shows patient has been the ER multiple times having any slightly elevated troponin and CK from substance abuse. 1600 patient was reassessed found her I complain bed in no acute distress. Patient has no complaints currently. Denies any chest pain, shortness of breath , headache, or dizziness. Patient is asking for something to eat. The patient will recheck labs and EKG and if they are unchanged or not going up with discharge home. I discussed this with , who is in agreement with plan of care and disposition. 1908 patient has been hallway yelling at nurse's wanting food prior to being discharged. Patient in no obvious distress upon re-evaluation. All pertinent laboratory/ Radiology result(s) discussed with patient. Discussed patient with Dr. Peacock prior to discharge, is in agreement with plan of care and disposition. Patient' s repeat lab work shows troponin unchanged and CK decreasing. Repeat EKG was unchanged. Suspect secondary to his continued polysubstance abuse. Patient was asked if they wanted to speak to my attending, which the patient did not wish to do at this time. Any questions/concerns in reference to patient diagnosis/ condition discussed and clarified prior to patient's discharge. Reinforced sheer importance of close follow up with patient's primary physician or primary care clinic. Instructed patient to return to ED immediately, if symptoms return/ worsen. Pt showed understanding of above instructions. Further instructions and recommendations were detailed in discharge paperwork. Pt ambulated without difficulty out of ED at discharge. Diagnosis Primary Impression: Polysubstance abuse Referrals: [facility] Patient Instructions: General Instructions, Polysubstance Abuse (ED) Additional Instructions: Follow-up with your primary care physician for reevaluation. Follow-up with [facility] for rehabilitation. Stop doing drugs. Return to the emergency department if symptoms get worse. Disposition: 01 DISCHARGE HOME Condition: Stable Isaías Thomas Oct 09, 2016 14:25
[2016-10-09 14:26] LABS: APTT (PATIENT) 25.2 SEC (24.3-30.1); INTERNATIONAL NORMALIZED RATIO 1.1 RATIO; PROTHROMBIN TIME - PATIENT 11.8 SEC (9.8-11.6)
[2016-10-09 14:41] LABS: BICARBONATE 24.9 MEQ/L (21.0-32.0); MAGNESIUM 2.1 MG/DL (1.5-2.5); POTASSIUM 3.9 MEQ/L (3.5-5.1)
--- NOTE | 2016-10-09 14:58 | RADRPT ---
EXAM DATE/TIME: 10/09/2016 14:41 [facility] COMPARISON: CT BRAIN W/O CONTRAST, September 25, 2016, 5:00. INDICATIONS : Dizziness along with short of breath . RADIATION DOSE: 36.00 CTDIvol (mGy) MEDICAL HISTORY : Hypertension. Hepatitis C. Diabetes mellitus type 2. SURGICAL HISTORY : None. ENCOUNTER: Initial ACUITY: 1 day PAIN SCALE: 2/10 LOCATION: cranial TECHNIQUE: Multiple contiguous axial images were obtained of the head. Using automated exposure control and adj ustment of the mA and/or kV according to patient size, radiation dose was kept as low as reasonably a chievable to obtain optimal diagnostic quality images. DICOM format image data is available electro nically for review and comparison. FINDINGS: Noncontrast axial head CT demonstrates the ventricles to be normal in size and configuration with a n ormal sulcal pattern. No acute intracranial hemorrhage, acute cortical infarction, mass or midline sh ift is seen. Posterior fossa structures are unremarkable. Bone windows are unremarkable. CONCLUSION: 1. No evidence of acute intracranial pathology. No masses are identified. Tre Valencia MD on October 09, 2016 at 14:46 Board Certified Radiologist. This report was verified electronically.
[2016-10-09 15:08] LABS: CKMB 13.9 NG/ML (0.5-3.6)
--- NOTE | 2016-10-09 15:08 | RADRPT ---
EXAM DATE/TIME: 10/09/2016 14:47 [facility] COMPARISON: CHEST SINGLE AP, September 03, 2016, 0:27. INDICATIONS : Patient complaining of shortness of breath. MEDICAL HISTORY : Hypertension. Diabetes mellitus type 2. Hepatitis C SURGICAL HISTORY : None. ENCOUNTER: Initial ACUITY: 1 day PAIN SCORE: Non-responsive. LOCATION: Bilateral upper chest FINDINGS: A single view of the chest demonstrates the lungs to be symmetrically aerated without evidence of mas s, infiltrate or effusion. The cardiomediastinal contours are unremarkable. Osseous structures are intact. CONCLUSION: No acute disease. Leonard Fraser MD on October 09, 2016 at 15:06 Board Certified Radiologist. This report was verified electronically.
[2016-10-09] MEDS ORDERED: SODIUM CHLOR 0.9% 1000 ML INJ 1,000 ML IV ONE (15:15)
[2016-10-09] MEDS ORDERED: ASPIRIN 81 MG CHEW TAB PO ONE (15:15)
[2016-10-09 15:41] VITALS: BP 144/79; PULSE 94; RESP 20; O2SAT 95
--- NOTE | 2016-10-11 01:08 | EKG ---
Date Performed: 10/09/2016 Time Performed: 17:08:11 PTAGE: 60 years EKG: Sinus rhythm NONSPECIFIC T-WAVE ABNORMALITY BORDERLINE ECG PREVIOUS TRACING : 10/09/2016 14.14 Compared to prior tracing no significant change DOCTOR: Erik Benites Interpretating Date/Time 10/11/2016 01:06:37
--- NOTE | 2016-10-11 01:16 | EKG ---
Date Performed: 10/09/2016 Time Performed: 14:14:39 PTAGE: 60 years EKG: Sinus rhythm NONSPECIFIC T-WAVE ABNORMALITY BORDERLINE ECG PREVIOUS TRACING : 09/03/2016 00.40 Compared to prior tracing no significant change DOCTOR: Erik Benites Interpretating Date/Time 10/11/2016 01:15:17
== END 2016-10-09 20:05 | disposition home or self-care (01) ==
LOC: NEPE 13:34
DX: F19.10 Other psychoactive substance abuse, uncomplicated (principal); R94.31 Abnormal electrocardiogram [ECG] [EKG]; R06.02 Shortness of breath; E11.9 Type 2 diabetes mellitus without complications; I10 Essential (primary) hypertension; G47.30 Sleep apnea, unspecified; E78.00 Pure hypercholesterolemia, unspecified; F17.200 Nicotine dependence, unspecified, uncomplicated; Z79.4 Long term (current) use of insulin; Z79.82 Long term (current) use of aspirin; Z79.899 Other long term (current) drug therapy; Z86.59 Personal history of other mental and behavioral disorders; Z86.79 Personal history of other diseases of the circulatory system; Z87.19 Personal history of other diseases of the digestive system
CPT/HCPCS: 70450; 71010; 80048; 80307; 82550; 82552; 83735; 84484; 85025; 85610; 85730; 93005; 96374; 99285; J7030

== ENCOUNTER 2016-10-14 16:02 | Emergency (ER) | payer OTHER ==
[~2016-10-14] VITALS: Ht 167.6 cm; Wt 75.0 kg
[2016-10-14 16:13] VITALS: BP 132/65; PULSE 89; RESP 15; TEMP 98.4; O2SAT 98
[2016-10-14 17:37] LABS: AUTOMATED NEUTROPHIL # 4.5 TH/MM3 (1.8-7.7); BASOPHIL # 0.1 TH/MM3 (0-0.2); BASOPHIL % 0.7 % (0.0-2.0); EOSINOPHIL # 0.2 TH/MM3 (0-0.4); EOSINOPHIL % 1.6 % (0.0-4.0); HEMATOCRIT 52.4 % (39.0-51.0); HEMO FLAGS DIFF FINAL; LYMPH % 41.1 % (9.0-44.0); LYMPHOCYTE # 3.9 TH/MM3 (1.0-4.8); MEAN CELL VOLUME 86.1 FL (80.0-100.0); MEAN CORPUSCULAR HEMOGLOBIN 28.9 PG (27.0-34.0); MEAN CORPUSCULAR HGB CONC 33.6 % (32.0-36.0); MONO % 9.6 % (0.0-8.0); PLATELET COUNT 287 TH/MM3 (150-450); RED BLOOD COUNT 6.09 MIL/MM3 (4.50-5.90); RED CELL DISTRIBUTION WIDTH 13.8 % (11.6-17.2); WHITE BLOOD COUNT 9.5 TH/MM3 (4.0-11.0)
[2016-10-14 18:16] LABS: ANION GAP 7 MEQ/L (5-15); BICARBONATE 27.3 MEQ/L (21.0-32.0); BLOOD UREA NITROGEN 13 MG/DL (7-18); CHLORIDE 103 MEQ/L (98-107); GLOMERULAR FILTRATION RATE 64 ML/MIN (>89); SODIUM (NA) 137 MEQ/L (136-145)
[2016-10-14 18:23] LABS: ACETAMINOPHEN LESS THAN 2.0 MCG/ML (10.0-30.0); ALCOHOL 148 MG/DL (0-5); POTASSIUM 4.4 MEQ/L (3.5-5.1)
[2016-10-14] MEDS ORDERED: LORazepam 2 MG/ML VIAL IV PUSH ONE (18:30)
[2016-10-14] MEDS ORDERED: SODIUM CHLOR 0.9% 1000 ML INJ 1,000 ML IV ONE (18:32)
[2016-10-14 18:43] VITALS: BP 156/74; PULSE 93; RESP 18; O2SAT 100
--- NOTE | 2016-10-14 18:56 | PD ---
HPI Chief Complaint: Medical Clearance Time Seen by Provider: 17:04 Travel History International Travel<30 days: No Contact w/Intl Traveler<30days: No Traveled to known affect area: No History of Present Illness HPI 60-year-old male that presents to the ED for evaluation of neck pain and possible intoxication. Per ambulance report patient was apparently found to be sleeping on a tree and clearly intoxicated and a bystander called the ambulance. Patient has a chronic history of polysubstance abuse. History is limited as patient cannot really give me any information. He was put on a cervical collar for unknown reason. Unclear if he had any injuries. He for the most part will not respond any questions. He is somnolent but arousable. He does tell me yes whenever ask him if he has any substance in his system. He does smell heavily of alcohol. He does have a history of substance abuse and has been seen here in the past. He denies any other medical issues. Most of the history is obtained from ED nurse that is very little information was given by EMS. PFSH Past Medical History Hx Anticoagulant Therapy: Yes (ASPIRIN) Blood Disorders: No Anxiety: Yes Depression: Yes Heart Rhythm Problems: No Cancer: No Cardiovascular Problems: Yes (HTN) High Cholesterol: Yes Chest Pain: Yes Congestive Heart Failure: No COPD: No Diabetes: Yes Patient Takes Glucophage: No (uto) Diminished Hearing: No Endocrine: Yes Gastrointestinal Disorders: Yes GERD: Yes Genitourinary: No Hepatitis: Yes (C) Hypertension: Yes Immune Disorder: No Implanted Vascular Access Dvce: No Musculoskeletal: No Neurologic: No Psychiatric: Yes Reproductive: No Respiratory: No Immunizations Current: Yes Sleep Apnea: Yes (CPAP) Past Surgical History Abdominal Surgery: No Cardiac Surgery: No Endocrine Surgery: No Eye Surgery: Yes (RETINA SOCKET REPAIR) Genitourinary Surgery: No Gynecologic Surgery: No Thoracic Surgery: No Other Surgery: Yes (RIGHT HAND, RIGHT EYE) Social History Alcohol Use: Yes (beer daily 8 pkg) Tobacco Use: Yes (1 PPD) Substance Use: Yes (Crack cocaine, day of admit) Allergies-Medications (Allergen,Severity, Reaction): Coded Allergies: lisinopril (Unverified Allergy, Unknown, 10/14/16) Reported Meds & Prescriptions Reported Meds & Active Scripts Active Walker with Front Wheels (Device) 1 Mis Mis 1 Ea .ROUTE DIRECTED Gnp Vitamin B-1 (Thiamine HCl) 100 Mg Tab 100 Mg PO DAILY Omeprazole 20 Mg Tab 20 Mg PO DAILY Aspirin EC (Aspirin) 81 Mg Tabdr 81 Mg PO DAILY Reported Gabapentin 600 Mg Tab 600 Mg PO BID Bupropion HCl 75 Mg Tab 150 Mg PO BID Hydrochlorothiazide 12.5 Mg Cap 12.5 Mg PO DAILY Ventolin Hfa 18 GM Inh (Albuterol Sulfate) 90 Mcg/Act Aer 2 Puff INH Q6H PRN Novolin 70-30 Inj (Insulin Human Isoph/Insulin Regular) 1,000 Unit/10 Ml Vial 50 Units SQ BID Methocarbamol 750 Mg Tab 750 Mg PO HS Review of Systems ROS Limitations: Intoxication Except as stated in HPI: all other systems reviewed are Neg Physical Exam Exam Limitations: Intoxication Narrative GENERAL: SKIN: Warm and dry. HEAD: Atraumatic. Normocephalic. EYES: Pupils equal and round. No scleral icterus. No injection or drainage. ENT: No nasal bleeding or discharge. Mucous membranes pink and moist. Tongue is midline. No uvula deviation. Smells heavily of alcohol. NECK: Trachea midline. No JVD. CARDIOVASCULAR: Regular rate and rhythm. No murmurs, S3, S4. RESPIRATORY: No accessory muscle use. Clear to auscultation. Breath sounds equal bilaterally. GASTROINTESTINAL: Abdomen soft, non-tender, nondistended. Hepatic and splenic margins not palpable. MUSCULOSKELETAL: Extremities without clubbing, cyanosis, or edema. No obvious deformities. Full range of motion of the upper and lower extremities bilaterally. 2+ pulses bilaterally. NEUROLOGICAL: Somnolent. No obvious cranial nerve deficits. Motor grossly within normal limits. Five out of 5 muscle strength in the arms and legs. Normal speech. PSYCHIATRIC: Intoxicated mood and affect; insight and judgment hard to asses at this time. Data Data Last Documented VS Vital Signs Date Time Temp Pulse Resp B/P (MAP) Pulse Ox O2 Delivery O2 Flow Rate FiO2 10/14/16 18:43 93 18 156/74 (101) 100 Room Air 10/14/16 16:13 98.4 Orders Orders Complete Blood Count With Diff (10/14/16 17:10) Basic Metabolic Panel (Bmp) (10/14/16 17:10) Ct Brain W/O Iv Contrast(Rout) (10/14/16 17:10) Drug Screen, Random Urine (10/14/16 17:10) Alcohol (Ethanol) (10/14/16 17:10) Salicylates (Aspirin) (10/14/16 17:10) Tylenol (Acetaminophen) (10/14/16 17:10) Ct Cerv Spine W/O Contrast (10/14/16 17:10) Lorazepam Inj (Ativan Inj) (10/14/16 18:30) Creatine Kinase (Cpk) (10/14/16 18:32) Sodium Chlor 0.9% 1000 Ml Inj (Ns 1000 M (10/14/16 18:32) CKMB (10/14/16 17:02) CKMB% (10/14/16 17:02) Labs Laboratory Tests Test 10/14/16 17:02 10/14/16 18:20 White Blood Count 9.5 TH/MM3 Red Blood Count 6.09 MIL/MM3 Hemoglobin 17.6 GM/DL Hematocrit 52.4 % Mean Corpuscular Volume 86.1 FL Mean Corpuscular Hemoglobin 28.9 PG Mean Corpuscular Hemoglobin Concent 33.6 % Red Cell Distribution Width 13.8 % Platelet Count 287 TH/MM3 Mean Platelet Volume 7.8 FL Neutrophils (%) (Auto) 47.0 % Lymphocytes (%) (Auto) 41.1 % Monocytes (%) (Auto) 9.6 % Eosinophils (%) (Auto) 1.6 % Basophils (%) (Auto) 0.7 % Neutrophils # (Auto) 4.5 TH/MM3 Lymphocytes # (Auto) 3.9 TH/MM3 Monocytes # (Auto) 0.9 TH/MM3 Eosinophils # (Auto) 0.2 TH/MM3 Basophils # (Auto) 0.1 TH/MM3 CBC Comment DIFF FINAL Differential Comment Blood Urea Nitrogen 13 MG/DL Creatinine 1.38 MG/DL Random Glucose 87 MG/DL Calcium Level 8.5 MG/DL Sodium Level 137 MEQ/L Potassium Level 4.4 MEQ/L Chloride Level 103 MEQ/L Carbon Dioxide Level 27.3 MEQ/L Anion Gap 7 MEQ/L Estimat Glomerular Filtration Rate 64 ML/MIN Total Creatine Kinase 802 U/L Creatine Kinase MB 10.6 NG/ML Creatine Kinase MB % 1.3 % Salicylates Level 1.8 MG/DL Acetaminophen Level LESS THAN 2.0 MCG/ML Ethyl Alcohol Level 148 MG/DL Urine Opiates Screen NEG Urine Barbiturates Screen NEG Urine Amphetamines Screen NEG Urine Benzodiazepines Screen NEG Urine Cocaine Screen POS Urine Cannabinoids Screen NEG MDM Medical Decision Making Medical Screen Exam Complete: Yes Emergency Medical Condition: Yes Medical Record Reviewed: Yes Interpretation(s) CBC & BMP Diagram 10/14/16 17:02 Calcium Level 8.[address] 10/14/16 1710 Signed Impressions: Service Date/Time: Friday, October 14, 2016 19:16 - CONCLUSION: 1. No acute intracranial abnormalities. Angel Childers MD Cervical Spine CT 10/14/161709 Signed Impressions: Service Date/Time: Friday, October 14, 2016 19:16 - CONCLUSION: 1. Moderate degenerative change. No acute findings. Angel Childers MD tox positive for alcohol in the 100s, cocaine Differential Diagnosis Polysubstance abuse versus neck pain versus chronic substance abuse versus dehydration versus altered mental status versus head injury versus neck pain Narrative Course 60-year-old male that presents to the ED for evaluation of possible intoxication. Patient was properly examined and was found to have signs and symptoms very consistent appears to be acute intoxication. A history of this. Most part she is unable to give me any information and he responds backgrounds as well as saying yes or now. He does state that he did have substance today. Patient is somewhat altered and because of the CTs were ordered. Labs were ordered as well. Patient was given IV fluids. He does have a history of cocaine abuse and has had positive troponins in the past with rhabdomyolysis. Because of his left upper ordered. Labs and imaging showed positive for cocaine and alcohol. Patient had slightly elevated CK which appear to be chronic for him secondary to his substance abuse. He was given IV fluids here. Case was discussed in my attending Dr. Méndez who agrees that patient can sleep off his intoxication until medically sober. Follow-up with PCP. See ED worsening symptoms. Diagnosis Primary Impression: Polysubstance dependence Patient Instructions: General Instructions Additional Instructions: Stop using drugs. Follow with PCP. See ED worsening symptoms. Motrin or Tylenol for pain. Med/Other Pt SpecificInfo: No Change to Meds Disposition: 01 DISCHARGE HOME Condition: Stable Tom Greene Oct 14, 2016 18:56
--- NOTE | 2016-10-14 19:46 | RADRPT ---
EXAM DATE/TIME: 10/14/2016 19:16 [facility] COMPARISON: CT BRAIN W/O CONTRAST, October 09, 2016, 14:41. INDICATIONS : Head pain due to trauma. RADIATION DOSE: 40.94 CTDIvol (mGy) MEDICAL HISTORY : Hypertension. Diabetes mellitus type 2. Hepatitis C. SURGICAL HISTORY : None. ENCOUNTER: Initial ACUITY: 1 day PAIN SCALE: 3/10 LOCATION: cranial TECHNIQUE: Multiple contiguous axial images were obtained of the head. Using automated exposure control and adj ustment of the mA and/or kV according to patient size, radiation dose was kept as low as reasonably a chievable to obtain optimal diagnostic quality images. DICOM format image data is available electro nically for review and comparison. FINDINGS: CEREBRUM: The ventricles are normal for age. No evidence of midline shift, mass lesion, hemorrhage or acute in farction. No extra-axial fluid collections are seen. POSTERIOR FOSSA: The cerebellum and brainstem are intact. The 4th ventricle is midline. The cerebellopontine angle i s unremarkable. EXTRACRANIAL: The visualized portion of the orbits is intact. Mesh on the floor on right orbit SKULL: The calvaria is intact. No evidence of skull fracture. CONCLUSION: 1. No acute intracranial abnormalities. Angel Childers MD on October 14, 2016 at 19:43 Board Certified Radiologist. This report was verified electronically.
--- NOTE | 2016-10-14 19:50 | RADRPT ---
EXAM DATE/TIME: 10/14/2016 19:16 [facility] COMPARISON: No previous studies available for comparison. INDICATIONS : Neck pain from trauma. RADIATION DOSE: 19.36 CTDIvol (mGy) MEDICAL HISTORY : Hypertension. Diabetes mellitus type 2. Hepatitis C. SURGICAL HISTORY : None. ENCOUNTER: Initial ACUITY: 1 day PAIN SCALE: 3/10 LOCATION: neck TECHNIQUE: Volumetric scanning of the cervical spine was performed. Multiplanar reconstructions in the sagittal, coronal and oblique axial planes were performed. Using automated exposure control and adjustment o f the mA and/or kV according to patient size, radiation dose was kept as low as reasonably achievable to obtain optimal diagnostic quality images. DICOM format image data is available electronically f or review and comparison. FINDINGS: There is moderate degenerative disc disease. No acute fracture spondylolisthesis. Moderate facet arth ropathy. No significant change from September 25. CONCLUSION: 1. Moderate degenerative change. No acute findings. Angel Childers MD on October 14, 2016 at 19:45 Board Certified Radiologist. This report was verified electronically.
[2016-10-14 20:05] LABS: CKMB 10.6 NG/ML (0.5-3.6)
[2016-10-14 23:51] VITALS: BP 155/82; PULSE 92; RESP 18; O2SAT 100
[2016-10-15 06:37] VITALS: BP 158/67; PULSE 95; RESP 18; O2SAT 100
== END 2016-10-15 06:51 | disposition home or self-care (01) ==
LOC: NEPE 16:02
DX: F19.229 Other psychoactive substance dependence with intoxication, unspecified (principal); M54.2 Cervicalgia; E11.9 Type 2 diabetes mellitus without complications; I10 Essential (primary) hypertension; E78.00 Pure hypercholesterolemia, unspecified; G47.30 Sleep apnea, unspecified; F17.200 Nicotine dependence, unspecified, uncomplicated; Z79.4 Long term (current) use of insulin; Z79.82 Long term (current) use of aspirin; Z86.59 Personal history of other mental and behavioral disorders; Z86.79 Personal history of other diseases of the circulatory system; Z87.19 Personal history of other diseases of the digestive system; Z86.19 Personal history of other infectious and parasitic diseases
CPT/HCPCS: 70450; 72125; 80048; 80307; 82550; 82552; 85025; 96374; 99285; J2060; J7030

== ENCOUNTER 2016-10-21 02:56 | Emergency (ER) | payer OTHER ==
[~2016-10-21] VITALS: Ht 175.3 cm; Wt 79.5 kg
[2016-10-21 03:04] VITALS: BP 133/75; PULSE 91; RESP 16; TEMP 97.7; O2SAT 98
--- NOTE | 2016-10-21 03:22 | PD ---
HPI Chief Complaint: Alcohol/Drug Intoxication Time Seen by Provider: 03:03 Travel History International Travel<30 days: No Contact w/Intl Traveler<30days: No Traveled to known affect area: No History of Present Illness HPI 60-year-old black male presents to emergency department due to alcohol intoxication. The patient drank 2-4 packs of 4 LOCOS. The patient states that he is a diabetic and needs something to eat. He has no other medical complaints. PFSH Past Medical History Hx Anticoagulant Therapy: Yes (ASPIRIN) Blood Disorders: No Anxiety: Yes Depression: Yes Heart Rhythm Problems: No Cancer: No Cardiovascular Problems: Yes (HTN) High Cholesterol: Yes Chest Pain: Yes Congestive Heart Failure: No COPD: No Diabetes: Yes Diminished Hearing: No Endocrine: Yes Gastrointestinal Disorders: Yes GERD: Yes Genitourinary: No Hepatitis: Yes (C) Hypertension: Yes Immune Disorder: No Implanted Vascular Access Dvce: No Musculoskeletal: No Neurologic: No Psychiatric: Yes Reproductive: No Respiratory: No Immunizations Current: Yes Sleep Apnea: Yes (CPAP) Past Surgical History Abdominal Surgery: No Cardiac Surgery: No Endocrine Surgery: No Eye Surgery: Yes (RETINA SOCKET REPAIR) Genitourinary Surgery: No Gynecologic Surgery: No Thoracic Surgery: No Other Surgery: Yes (RIGHT HAND, RIGHT EYE) Social History Alcohol Use: Yes (beer daily 8 pkg) Tobacco Use: Yes (1 PPD) Substance Use: Yes (Crack cocaine, day of admit) Allergies-Medications (Allergen,Severity, Reaction): Coded Allergies: lisinopril (Unverified Allergy, Unknown, 10/14/16) Reported Meds & Prescriptions Reported Meds & Active Scripts Active Walker with Front Wheels (Device) 1 Mis Mis 1 Ea .ROUTE DIRECTED Gnp Vitamin B-1 (Thiamine HCl) 100 Mg Tab 100 Mg PO DAILY Omeprazole 20 Mg Tab 20 Mg PO DAILY Aspirin EC (Aspirin) 81 Mg Tabdr 81 Mg PO DAILY Reported Gabapentin 600 Mg Tab 600 Mg PO BID Bupropion HCl 75 Mg Tab 150 Mg PO BID Hydrochlorothiazide 12.5 Mg Cap 12.5 Mg PO DAILY Ventolin Hfa 18 GM Inh (Albuterol Sulfate) 90 Mcg/Act Aer 2 Puff INH Q6H PRN Novolin 70-30 Inj (Insulin Human Isoph/Insulin Regular) 1,000 Unit/10 Ml Vial 50 Units SQ BID Methocarbamol 750 Mg Tab 750 Mg PO HS Review of Systems ROS Limitations: Intoxication Physical Exam Narrative GENERAL: Well-nourished, well-developed patient. Appears intoxicated SKIN: Warm and dry. HEAD: Normocephalic and atraumatic. EYES: No scleral icterus. No injection or drainage. ENT: No nasal drainage noted. Mucous membranes pink. Airway patent. NECK: Supple, trachea midline. Moves head freely without obvious discomfort. CARDIOVASCULAR: Regular rate and rhythm without murmurs, gallops, or rubs. RESPIRATORY: Breath sounds equal bilaterally. No accessory muscle use. GASTROINTESTINAL: Abdomen soft, non-tender, nondistended. EXTREMITIES: No cyanosis or edema. BACK: Nontender without obvious deformity. No CVA tenderness. NEURO: Patient is alert and oriented. no sensorimotor deficits. Nonfocal. Slurred speech. PSYCH: No delusions. No auditory or visual hallucinations. Data Data Last Documented VS Vital Signs Date Time Temp Pulse Resp B/P (MAP) Pulse Ox O2 Delivery O2 Flow Rate FiO2 10/21/16 03:04 97.7 91 16 133/75 (94) 98 MDM Medical Decision Making Medical Screen Exam Complete: Yes Emergency Medical Condition: Yes Medical Record Reviewed: Yes Differential Diagnosis Differential diagnoses: Alcohol intoxication, substance abuse, electrolyte abnormality, malingering Narrative Course The patient is intoxicated. He is given Gatorade and sandwiches which he has eaten. The patient will be allowed to sober appear in the ER and will be discharged in the morning. This is alcohol intoxication Diagnosis Primary Impression: Alcohol intoxication Qualified Codes: F10.929 - Alcohol use, unspecified with intoxication, unspecified Patient Instructions: General Instructions Additional Instructions: Rest. Increase fluids. Avoid alcohol. Avoid illegal substances. Follow-up with [facility] for detox. Do not operate a car or any heavy machinery under the influence of alcohol or drugs. Follow-up with a medical doctor this week. Return to the ER for emergencies Med/Other Pt SpecificInfo: No Meds Exist/No RX given Disposition: 01 DISCHARGE HOME Condition: Stable Angel Demarco Oct 21, 2016 03:22
== END 2016-10-21 07:02 | disposition home or self-care (01) ==
LOC: NEPD 02:56
DX: F10.929 Alcohol use, unspecified with intoxication, unspecified (principal); E11.9 Type 2 diabetes mellitus without complications; I10 Essential (primary) hypertension; E78.00 Pure hypercholesterolemia, unspecified; G47.30 Sleep apnea, unspecified; F17.200 Nicotine dependence, unspecified, uncomplicated; Z79.4 Long term (current) use of insulin; Z79.82 Long term (current) use of aspirin; Z86.59 Personal history of other mental and behavioral disorders; Z86.79 Personal history of other diseases of the circulatory system; Z87.19 Personal history of other diseases of the digestive system; Z86.19 Personal history of other infectious and parasitic diseases
CPT/HCPCS: 99283

== ENCOUNTER 2016-10-21 16:26 | Emergency (ER) | payer OTHER ==
[~2016-10-21] VITALS: Ht 177.8 cm; Wt 75.0 kg
--- NOTE | 2016-10-21 17:28 | PD ---
HPI Chief Complaint: Psychiatric Symptoms Time Seen by Provider: 17:28 Travel History International Travel<30 days: No Contact w/Intl Traveler<30days: No Traveled to known affect area: No History of Present Illness HPI 60-year-old male with history of bipolar schizoaffective disorder presents to emergency department for evaluation under a [place] act. Patient states he has not been taking his medication for the last 3 weeks. He has been having suicidal thoughts. He does not discuss the plan with me. He also reports alcohol and cocaine use. Denies any acute medical needs. He has no other symptoms to report. PFSH Past Medical History Hx Anticoagulant Therapy: Yes (ASPIRIN) Blood Disorders: No Anxiety: Yes Depression: Yes Heart Rhythm Problems: No Cancer: No Cardiovascular Problems: Yes (HTN) High Cholesterol: Yes Chest Pain: Yes Congestive Heart Failure: No COPD: No Diabetes: Yes Diminished Hearing: No Endocrine: Yes Gastrointestinal Disorders: Yes GERD: Yes Genitourinary: No Hepatitis: Yes (C) Hypertension: Yes Immune Disorder: No Implanted Vascular Access Dvce: No Musculoskeletal: No Neurologic: No Psychiatric: Yes Reproductive: No Respiratory: No Immunizations Current: Yes Sleep Apnea: Yes (CPAP) Past Surgical History Abdominal Surgery: No Cardiac Surgery: No Endocrine Surgery: No Eye Surgery: Yes (RETINA SOCKET REPAIR) Genitourinary Surgery: No Gynecologic Surgery: No Thoracic Surgery: No Other Surgery: Yes (RIGHT HAND, RIGHT EYE) Social History Alcohol Use: Yes (beer daily 8 pkg) Tobacco Use: Yes (1 PPD) Substance Use: Yes (Crack cocaine) Allergies-Medications (Allergen,Severity, Reaction): Coded Allergies: lisinopril (Unverified Allergy, Unknown, 10/14/16) Reported Meds & Prescriptions Reported Meds & Active Scripts Active Walker with Front Wheels (Device) 1 Mis Mis 1 Ea .ROUTE DIRECTED Gnp Vitamin B-1 (Thiamine HCl) 100 Mg Tab 100 Mg PO DAILY Omeprazole 20 Mg Tab 20 Mg PO DAILY Aspirin EC (Aspirin) 81 Mg Tabdr 81 Mg PO DAILY Reported Gabapentin 600 Mg Tab 600 Mg PO BID Bupropion HCl 75 Mg Tab 150 Mg PO BID Hydrochlorothiazide 12.5 Mg Cap 12.5 Mg PO DAILY Ventolin Hfa 18 GM Inh (Albuterol Sulfate) 90 Mcg/Act Aer 2 Puff INH Q6H PRN Novolin 70-30 Inj (Insulin Human Isoph/Insulin Regular) 1,000 Unit/10 Ml Vial 50 Units SQ BID Methocarbamol 750 Mg Tab 750 Mg PO HS Review of Systems Except as stated in HPI: all other systems reviewed are Neg Physical Exam Narrative GENERAL: Well-nourished female patient, and no acute distress SKIN: Focused skin assessment warm/dry. HEAD: Atraumatic. Normocephalic. EYES: Pupils equal and round. No scleral icterus. No injection or drainage. ENT: No nasal bleeding or discharge. Mucous membranes pink and moist. NECK: Trachea midline. No JVD. CARDIOVASCULAR: Regular rate and rhythm. No murmur appreciated. RESPIRATORY: No accessory muscle use. Clear to auscultation. Breath sounds equal bilaterally. GASTROINTESTINAL: Abdomen soft, non-tender, nondistended. Hepatic and splenic margins not palpable. MUSCULOSKELETAL: No obvious deformities. No clubbing. No cyanosis. No edema. NEUROLOGICAL: Awake and alert. No obvious cranial nerve deficits. Motor grossly within normal limits. Normal speech. PSYCHIATRIC: Flat affect.. Data Data Last Documented VS Vital Signs Date Time Temp Pulse Resp B/P (MAP) Pulse Ox O2 Delivery O2 Flow Rate FiO2 10/21/16 18:30 96 18 129/69 (89) 97 Room Air Orders Orders Complete Blood Count With Diff (10/21/16 17:27) Basic Metabolic Panel (Bmp) (10/21/16 17:27) Psych Screen (10/21/16 17:27) Drug Screen, Random Urine (10/21/16 17:27) Alcohol (Ethanol) (10/21/16 17:27) Labs Laboratory Tests Test 10/21/16 19:25 10/21/16 19:30 White Blood Count 8.9 TH/MM3 Red Blood Count 5.82 MIL/MM3 Hemoglobin 16.5 GM/DL Hematocrit 50.4 % Mean Corpuscular Volume 86.5 FL Mean Corpuscular Hemoglobin 28.4 PG Mean Corpuscular Hemoglobin Concent 32.8 % Red Cell Distribution Width 14.1 % Platelet Count 275 TH/MM3 Mean Platelet Volume 7.3 FL Neutrophils (%) (Auto) 52.0 % Lymphocytes (%) (Auto) 39.3 % Monocytes (%) (Auto) 7.4 % Eosinophils (%) (Auto) 0.5 % Basophils (%) (Auto) 0.8 % Neutrophils # (Auto) 4.6 TH/MM3 Lymphocytes # (Auto) 3.5 TH/MM3 Monocytes # (Auto) 0.7 TH/MM3 Eosinophils # (Auto) 0.0 TH/MM3 Basophils # (Auto) 0.1 TH/MM3 CBC Comment DIFF FINAL Differential Comment Blood Urea Nitrogen 9 MG/DL Creatinine 1.10 MG/DL Random Glucose 203 MG/DL Calcium Level 8.2 MG/DL Sodium Level 135 MEQ/L Potassium Level 3.7 MEQ/L Chloride Level 99 MEQ/L Carbon Dioxide Level 25.2 MEQ/L Anion Gap 11 MEQ/L Estimat Glomerular Filtration Rate 83 ML/MIN Ethyl Alcohol Level 52 MG/DL MDM Medical Decision Making Medical Screen Exam Complete: Yes Emergency Medical Condition: Yes Medical Record Reviewed: Yes Differential Diagnosis Mood disorder versus personality disorder versus adjustment reaction disorder Narrative Course 60-year-old male presents to the department under [place] act for psychiatric evaluation. Patient appears without distress. Laboratory Tests Test 10/21/16 19:25 10/21/16 19:30 White Blood Count 8.9 TH/MM3 Red Blood Count 5.82 MIL/MM3 Hemoglobin 16.5 GM/DL Hematocrit 50.4 % Mean Corpuscular Volume 86.5 FL Mean Corpuscular Hemoglobin 28.4 PG Mean Corpuscular Hemoglobin Concent 32.8 % Red Cell Distribution Width 14.1 % Platelet Count 275 TH/MM3 Mean Platelet Volume 7.3 FL Neutrophils (%) (Auto) 52.0 % Lymphocytes (%) (Auto) 39.3 % Monocytes (%) (Auto) 7.4 % Eosinophils (%) (Auto) 0.5 % Basophils (%) (Auto) 0.8 % Neutrophils # (Auto) 4.6 TH/MM3 Lymphocytes # (Auto) 3.5 TH/MM3 Monocytes # (Auto) 0.7 TH/MM3 Eosinophils # (Auto) 0.0 TH/MM3 Basophils # (Auto) 0.1 TH/MM3 CBC Comment DIFF FINAL Differential Comment Blood Urea Nitrogen 9 MG/DL Creatinine 1.10 MG/DL Random Glucose 203 MG/DL Calcium Level 8.2 MG/DL Sodium Level 135 MEQ/L Potassium Level 3.7 MEQ/L Chloride Level 99 MEQ/L Carbon Dioxide Level 25.2 MEQ/L Anion Gap 11 MEQ/L Estimat Glomerular Filtration Rate 83 ML/MIN Ethyl Alcohol Level 52 MG/DL Patient is medically cleared to undergo psychiatric screening for further evaluation and disposition. Mental health screening discussed with the patient. Psychiatric screen ordered. Diagnosis Primary Impression: Substance induced mood disorder Condition: Stable Clarisa Alva Oct 21, 2016 17:28
[2016-10-21 18:30] VITALS: BP 129/69; PULSE 96; RESP 18; O2SAT 97
[2016-10-21 20:13] LABS: AUTOMATED NEUTROPHIL # 4.6 TH/MM3 (1.8-7.7); BASOPHIL # 0.1 TH/MM3 (0-0.2); BASOPHIL % 0.8 % (0.0-2.0); EOSINOPHIL % 0.5 % (0.0-4.0); HEMATOCRIT 50.4 % (39.0-51.0); HEMO FLAGS DIFF FINAL; LYMPH % 39.3 % (9.0-44.0); LYMPHOCYTE # 3.5 TH/MM3 (1.0-4.8); MEAN CELL VOLUME 86.5 FL (80.0-100.0); MEAN CORPUSCULAR HEMOGLOBIN 28.4 PG (27.0-34.0); MEAN CORPUSCULAR HGB CONC 32.8 % (32.0-36.0); MONO % 7.4 % (0.0-8.0); PLATELET COUNT 275 TH/MM3 (150-450); RED BLOOD COUNT 5.82 MIL/MM3 (4.50-5.90); RED CELL DISTRIBUTION WIDTH 14.1 % (11.6-17.2); WHITE BLOOD COUNT 8.9 TH/MM3 (4.0-11.0)
[2016-10-21 20:30] LABS: BICARBONATE 25.2 MEQ/L (21.0-32.0); POTASSIUM 3.7 MEQ/L (3.5-5.1)
[2016-10-22 02:23] VITALS: BP 157/75; PULSE 80; RESP 18; O2SAT 98
--- NOTE | 2016-10-22 10:55 | PD ---
Data Data Last Documented VS Vital Signs Date Time Temp Pulse Resp B/P (MAP) Pulse Ox O2 Delivery O2 Flow Rate FiO2 10/22/16 02:23 80 18 157/75 (102) 98 Room Air Orders Orders Complete Blood Count With Diff (10/21/16 17:27) Basic Metabolic Panel (Bmp) (10/21/16 17:27) Psych Screen (10/21/16 17:27) Drug Screen, Random Urine (10/21/16 17:27) Alcohol (Ethanol) (10/21/16 17:27) Diet Diabetic (10/22/16 Breakfast) Labs Laboratory Tests Test 10/21/16 19:25 10/21/16 19:30 White Blood Count 8.9 TH/MM3 Red Blood Count 5.82 MIL/MM3 Hemoglobin 16.5 GM/DL Hematocrit 50.4 % Mean Corpuscular Volume 86.5 FL Mean Corpuscular Hemoglobin 28.4 PG Mean Corpuscular Hemoglobin Concent 32.8 % Red Cell Distribution Width 14.1 % Platelet Count 275 TH/MM3 Mean Platelet Volume 7.3 FL Neutrophils (%) (Auto) 52.0 % Lymphocytes (%) (Auto) 39.3 % Monocytes (%) (Auto) 7.4 % Eosinophils (%) (Auto) 0.5 % Basophils (%) (Auto) 0.8 % Neutrophils # (Auto) 4.6 TH/MM3 Lymphocytes # (Auto) 3.5 TH/MM3 Monocytes # (Auto) 0.7 TH/MM3 Eosinophils # (Auto) 0.0 TH/MM3 Basophils # (Auto) 0.1 TH/MM3 CBC Comment DIFF FINAL Differential Comment Blood Urea Nitrogen 9 MG/DL Creatinine 1.10 MG/DL Random Glucose 203 MG/DL Calcium Level 8.2 MG/DL Sodium Level 135 MEQ/L Potassium Level 3.7 MEQ/L Chloride Level 99 MEQ/L Carbon Dioxide Level 25.2 MEQ/L Anion Gap 11 MEQ/L Estimat Glomerular Filtration Rate 83 ML/MIN Ethyl Alcohol Level 52 MG/DL Urine Opiates Screen NEG Urine Barbiturates Screen NEG Urine Amphetamines Screen NEG Urine Benzodiazepines Screen NEG Urine Cocaine Screen POS Urine Cannabinoids Screen NEG MDM Supervised Visit with [facility]: No Narrative Course Patient psychiatrically cleared. Stable for discharge. Diagnosis Primary Impression: Substance induced mood disorder Additional Instruction: Follow-up for outpatient substance abuse treatment. Disposition: 01 DISCHARGE HOME Condition: Stable Viel,Anton C. MD Oct 22, 2016 10:55
[2016-10-22 10:57] VITALS: BP 144/76; PULSE 69; RESP 18; O2SAT 97
[2016-10-22 11:03] VITALS: BP 144/76; PULSE 69; RESP 18; O2SAT 97
--- NOTE | 2016-10-22 11:10 | PD ---
History of Present Illness Chief Complaint: Psychiatric Symptoms Time Seen by Provider: 10:45 Travel History International Travel<30 Days: No Contact w/Intl Traveler<30days: No Known affected area: No Legal Status Legal Status: [place] Act [place] Act Signed By: Dameon Camaerna History of Present Illness: History of Present Illness HPI 60-year-old male with history of schizoaffective disorder bipolar type, substance use disorder who presents to emergency department for evaluation under a [place] act. The [place] act was initiated by DAISHA and it alleges that the patient contacted the police and informed them that he wanted to kill himself due to personal problems as well as drug addiction. Patient states he has not been taking his medication for the last 3 weeks. He did not make any attempt at harming himself. He was monitored in [facility] and presented no suicidality. EMR is reviewed. He has presented to ED on multiple occasions in this year for substance abuse related concerns. He has one previous admission to [facility] psychiat[facility] in 2013 under the care of Dr. Padron. At that time he was threatening suicidal ideation and was admitted for a 24 hour observation .Current toxicology is positive for cocaine as well as alcohol. Patient is is alert, oriented, AA male in [facility]. Attending to basic hygiene. He is calm. He is uninterested in most of evaluation and stipulates that he must have lunch before he can answer my questions. he does answer questions. Speech is clear and logical, there is no psychosis and no adela. States" I am looking for help. I need to get stop my alcohol and drug use". He request to be "carried to [facility], asks " are they waiting for me? . he reports that he has a shelter case manager at the [place] by the name of Gatito but that he is not working today so I would not be able to contact him. Not psychotic and no suicidal or homicidal ideation. PFSH Past Medical History Hx Anticoagulant Therapy: Yes (ASPIRIN) Blood Disorders: No Anxiety: Yes Depression: Yes Heart Rhythm Problems: No Cancer: No Cardiovascular Problems: Yes (HTN) High Cholesterol: Yes Chest Pain: Yes Congestive Heart Failure: No COPD: No Diabetes: Yes Patient Takes Glucophage: No Diminished Hearing: No Endocrine: Yes Gastrointestinal Disorders: Yes GERD: Yes Genitourinary: No Hepatitis: Yes (C) Hypertension: Yes Immune Disorder: No Implanted Vascular Access Dvce: No Musculoskeletal: No Neurologic: No Psychiatric: Yes Reproductive: No Respiratory: No Immunizations Current: Yes Sleep Apnea: Yes (CPAP) Past Surgical History Abdominal Surgery: No Cardiac Surgery: No Endocrine Surgery: No Eye Surgery: Yes (RETINA SOCKET REPAIR) Genitourinary Surgery: No Gynecologic Surgery: No Thoracic Surgery: No Other Surgery: Yes (RIGHT HAND, RIGHT EYE) Psychiatric History Psychiatric History Hx Psychiatric Treatment: [facility]. [facility] History of Inpatient Treatment: Yes Guns or firearms in home: No Social History Single male, homeless, unemployed, Hx Alcohol Use: Yes (beer daily 8 pkg) Hx Tobacco Use: Yes (1 PPD) Hx Substance Use: Yes (Crack cocaine) Substance Use Type: Alcohol, Crack, Nicotine/Cigarettes, Cocaine Hx of Substance Use Treatment: Yes (Has had substance abuse tretametn at [facility] as wekll as in [facility] detox. ) Family Psychiatric History None reported. Allergies-Medications (Allergen,Severity, Reaction): Coded Allergies: lisinopril (Unverified Allergy, Unknown, 10/14/16) Reported Meds & Prescriptions Reported Meds & Active Scripts Active Walker with Front Wheels (Device) 1 Mis Mis 1 Ea .ROUTE DIRECTED Gnp Vitamin B-1 (Thiamine HCl) 100 Mg Tab 100 Mg PO DAILY Omeprazole 20 Mg Tab 20 Mg PO DAILY Aspirin EC (Aspirin) 81 Mg Tabdr 81 Mg PO DAILY Reported Gabapentin 600 Mg Tab 600 Mg PO BID Bupropion HCl 75 Mg Tab 150 Mg PO BID Hydrochlorothiazide 12.5 Mg Cap 12.5 Mg PO DAILY Ventolin Hfa 18 GM Inh (Albuterol Sulfate) 90 Mcg/Act Aer 2 Puff INH Q6H PRN Novolin 70-30 Inj (Insulin Human Isoph/Insulin Regular) 1,000 Unit/10 Ml Vial 50 Units SQ BID Methocarbamol 750 Mg Tab 750 Mg PO HS Review of Systems Except as stated in HPI: all other systems reviewed are Neg Exam Alert: Yes Ovalo: Person (ox4) Mood: Calm Affect: Appropriate Speech: Clear Eye Contact: Indirect Memory Intact: Comment (No impairment) Hallucinations: Other (Neghative) Delusions: No Delusion Type: Other (Negative) Suicidal: Ideation (Negative) Homicidal: Ideation (Negative) Insight/Judgement Poor. Not impaired. MDM Medical Decision Making Medical Record Reviewed: Yes Assessment/Plan 60-year-old male with history of schizoaffective disorder bipolar type, substance use disorder who presents to emergency department for evaluation under a [place] act. The [place] act was initiated by DAISHA and it alleges that the patient contacted the police and informed them that he wanted to kill himself due to personal problems as well as drug addiction. Patient states he has not been taking his medication for the last 3 weeks. He did not make any attempt at harming himself. He was monitored in [facility] and presented no suicidality. Marked antisocial and manipulative traits are observed during his interaction with staff making specific demands. He is future oriented . Patient does not meet [place] act criteria and it has been lifted. He is provided bus passes and instructed on seeking treatment at [facility]. Psychiatrically cleared for discharge. Orders Orders Complete Blood Count With Diff (10/21/16 17:27) Basic Metabolic Panel (Bmp) (10/21/16 17:27) Psych Screen (10/21/16 17:27) Drug Screen, Random Urine (10/21/16 17:27) Alcohol (Ethanol) (10/21/16 17:27) Diet Diabetic (10/22/16 Breakfast) Results Vital Signs Date Time Temp Pulse Resp B/P (MAP) Pulse Ox O2 Delivery O2 Flow Rate FiO2 10/22/16 11:03 69 18 144/76 (98) 97 Room Air 10/22/16 10:57 69 18 144/76 (98) 97 Room Air 10/22/16 02:23 80 18 157/75 (102) 98 Room Air 10/21/16 18:30 96 18 129/69 (89) 97 Room Air Laboratory Tests Test 10/21/16 19:25 10/21/16 19:30 White Blood Count 8.9 Red Blood Count 5.82 Hemoglobin 16.5 Hematocrit 50.4 Mean Corpuscular Volume 86.5 Mean Corpuscular Hemoglobin 28.4 Mean Corpuscular Hemoglobin Concent 32.8 Red Cell Distribution Width 14.1 Platelet Count 275 Mean Platelet Volume 7.3 Neutrophils (%) (Auto) 52.0 Lymphocytes (%) (Auto) 39.3 Monocytes (%) (Auto) 7.4 Eosinophils (%) (Auto) 0.5 Basophils (%) (Auto) 0.8 Neutrophils # (Auto) 4.6 Lymphocytes # (Auto) 3.5 Monocytes # (Auto) 0.7 Eosinophils # (Auto) 0.0 Basophils # (Auto) 0.1 CBC Comment DIFF FINAL Differential Comment Blood Urea Nitrogen 9 Creatinine 1.10 Random Glucose 203 Calcium Level 8.2 Sodium Level 135 Potassium Level 3.7 Chloride Level 99 Carbon Dioxide Level 25.2 Anion Gap 11 Estimat Glomerular Filtration Rate 83 Ethyl Alcohol Level 52 Urine Opiates Screen NEG Urine Barbiturates Screen NEG Urine Amphetamines Screen NEG Urine Benzodiazepines Screen NEG Urine Cocaine Screen POS Urine Cannabinoids Screen NEG Diagnosis Primary Impression: Substance induced mood disorder Additional Impression: Cocaine abuse Psychiatrically Cleared: Yes Additional Instructions: Follow-up for outpatient substance abuse treatment. Disposition: 01 DISCHARGE HOME Condition: Stable Problem Qualifiers Geovanna Weber Oct 22, 2016 11:10
== END 2016-10-22 12:21 | disposition home or self-care (01) ==
LOC: NEPJ 16:26
DX: F19.94 Other psychoactive substance use, unspecified with psychoactive substance-induced mood disorder (principal); F14.10 Cocaine abuse, uncomplicated; F25.0 Schizoaffective disorder, bipolar type; F41.9 Anxiety disorder, unspecified; I10 Essential (primary) hypertension; E78.00 Pure hypercholesterolemia, unspecified; E11.9 Type 2 diabetes mellitus without complications; K21.9 Gastro-esophageal reflux disease without esophagitis; Z79.899 Other long term (current) drug therapy
CPT/HCPCS: 80048; 80307; 85025; 99284

== ENCOUNTER 2016-10-26 08:57 | Emergency (ER) | payer OTHER ==
[~2016-10-26] VITALS: Ht 177.8 cm; Wt 85.0 kg
[2016-10-26 09:10] VITALS: BP 114/73; PULSE 92; RESP 16; TEMP 98; O2SAT 100
--- NOTE | 2016-10-26 09:21 | PD ---
HPI Chief Complaint: Chest Pain Time Seen by Provider: 09:10 Travel History International Travel<30 days: No Contact w/Intl Traveler<30days: No Traveled to known affect area: No History of Present Illness HPI 60yo M with PMH of bipolar disorder, schizoaffective disorder was brought in under police custody for evaluation of chest pain. The police said he was arrested for disorderly conduct and once the hand cuffs went on, he started complaining of chest pain. States it is sharp, midsternal. He also "busted his right elbow". States he has right elbow pain. Pt is moving all extremities. Admits to drinking lots of alcohol. Pt is here frequently for polysubstance abuse. He was mcneill act on 10/22/16 and seen by psych 10/23/16 who said he was antisocial and manipulative and lifted mcneill act. The police also said he threatened suicide but they have suicide watch in nursing home. PFSH Past Medical History Hx Anticoagulant Therapy: Yes (ASPIRIN) Blood Disorders: No Anxiety: Yes Depression: Yes Heart Rhythm Problems: No Cancer: No Cardiovascular Problems: Yes (HTN) High Cholesterol: Yes Chest Pain: Yes Congestive Heart Failure: No COPD: No Diabetes: Yes Diminished Hearing: No Endocrine: Yes Gastrointestinal Disorders: Yes GERD: Yes Genitourinary: No Hepatitis: Yes (C) Hypertension: Yes Immune Disorder: No Implanted Vascular Access Dvce: No Musculoskeletal: No Neurologic: No Psychiatric: Yes Reproductive: No Respiratory: No Immunizations Current: Yes Sleep Apnea: Yes (CPAP) Past Surgical History Abdominal Surgery: No Cardiac Surgery: No Endocrine Surgery: No Eye Surgery: Yes (RETINA SOCKET REPAIR) Genitourinary Surgery: No Gynecologic Surgery: No Thoracic Surgery: No Other Surgery: Yes (RIGHT HAND, RIGHT EYE) Social History Alcohol Use: Yes (beer daily 8 pkg) Tobacco Use: Yes (1 PPD) Substance Use: Yes (Crack cocaine) Allergies-Medications (Allergen,Severity, Reaction): Coded Allergies: lisinopril (Unverified Allergy, Unknown, 10/14/16) Reported Meds & Prescriptions Reported Meds & Active Scripts Active Walker with Front Wheels (Device) 1 Mis Mis 1 Ea .ROUTE DIRECTED Gnp Vitamin B-1 (Thiamine HCl) 100 Mg Tab 100 Mg PO DAILY Omeprazole 20 Mg Tab 20 Mg PO DAILY Aspirin EC (Aspirin) 81 Mg Tabdr 81 Mg PO DAILY Reported Gabapentin 600 Mg Tab 600 Mg PO BID Bupropion HCl 75 Mg Tab 150 Mg PO BID Hydrochlorothiazide 12.5 Mg Cap 12.5 Mg PO DAILY Ventolin Hfa 18 GM Inh (Albuterol Sulfate) 90 Mcg/Act Aer 2 Puff INH Q6H PRN Novolin 70-30 Inj (Insulin Human Isoph/Insulin Regular) 1,000 Unit/10 Ml Vial 50 Units SQ BID Methocarbamol 750 Mg Tab 750 Mg PO HS Review of Systems Except as stated in HPI: all other systems reviewed are Neg Physical Exam Narrative GENERAL: 60yo M not in distress. SKIN: Focused skin assessment warm/dry. HEAD: Atraumatic. Normocephalic. EYES: Pupils equal and round. No scleral icterus. No injection or drainage. ENT: No nasal bleeding or discharge. Mucous membranes pink and moist. NECK: Trachea midline. No JVD. CARDIOVASCULAR: Regular rate and rhythm. No murmur appreciated. RESPIRATORY: No accessory muscle use. Clear to auscultation. Breath sounds equal bilaterally. GASTROINTESTINAL: Abdomen soft, non-tender, nondistended. MUSCULOSKELETAL: Right elbow: No swelling, deformity. No open wounds. Sensation intact. Distal pulses intact. NEUROLOGICAL: Awake and alert. No obvious cranial nerve deficits. Motor grossly within normal limits. Normal speech. Data Data Last Documented VS Vital Signs Date Time Temp Pulse Resp B/P (MAP) Pulse Ox O2 Delivery O2 Flow Rate FiO2 10/26/16 09:13 92 16 100 Room Air 10/26/16 09:10 98.0 114/73 (87) Orders Orders Basic Metabolic Panel (Bmp) (10/26/16 09:12) Complete Blood Count With Diff (10/26/16 09:12) Prothrombin Time / Inr (Pt) (10/26/16 09:12) Act Partial Throm Time (Ptt) (10/26/16 09:12) Troponin I (10/26/16 09:12) Chest, Single Ap (10/26/16 09:12) Alcohol (Ethanol) (10/26/16 09:12) Tylenol (Acetaminophen) (10/26/16 09:12) Salicylates (Aspirin) (10/26/16 09:12) Drug Screen, Random Urine (10/26/16 09:12) Electrocardiogram (10/26/16 ) Elbow, Limited (Ap&Lat) (10/26/16 ) Labs Laboratory Tests Test 10/26/16 09:20 10/26/16 09:35 White Blood Count 8.9 TH/MM3 Red Blood Count 5.52 MIL/MM3 Hemoglobin 15.9 GM/DL Hematocrit 47.1 % Mean Corpuscular Volume 85.4 FL Mean Corpuscular Hemoglobin 28.9 PG Mean Corpuscular Hemoglobin Concent 33.8 % Red Cell Distribution Width 13.8 % Platelet Count 248 TH/MM3 Mean Platelet Volume 7.5 FL Neutrophils (%) (Auto) 49.8 % Lymphocytes (%) (Auto) 40.3 % Monocytes (%) (Auto) 8.8 % Eosinophils (%) (Auto) 0.5 % Basophils (%) (Auto) 0.6 % Neutrophils # (Auto) 4.4 TH/MM3 Lymphocytes # (Auto) 3.6 TH/MM3 Monocytes # (Auto) 0.8 TH/MM3 Eosinophils # (Auto) 0.0 TH/MM3 Basophils # (Auto) 0.1 TH/MM3 CBC Comment DIFF FINAL Differential Comment Prothrombin Time 12.0 SEC Prothromb Time International Ratio 1.1 RATIO Activated Partial Thromboplast Time 27.1 SEC Blood Urea Nitrogen 7 MG/DL Creatinine 0.96 MG/DL Random Glucose 81 MG/DL Calcium Level 8.8 MG/DL Sodium Level 138 MEQ/L Potassium Level 3.5 MEQ/L Chloride Level 106 MEQ/L Carbon Dioxide Level 22.2 MEQ/L Anion Gap 10 MEQ/L Estimat Glomerular Filtration Rate 97 ML/MIN Troponin I 0.05 NG/ML Salicylates Level 3.6 MG/DL Acetaminophen Level LESS THAN 2.0 MCG/ML Ethyl Alcohol Level 173 MG/DL Urine Opiates Screen NEG Urine Barbiturates Screen NEG Urine Amphetamines Screen NEG Urine Benzodiazepines Screen NEG Urine Cocaine Screen POS Urine Cannabinoids Screen NEG MDM Medical Decision Making Medical Screen Exam Complete: Yes Emergency Medical Condition: Yes Interpretation(s) EKG: NSR 90bpm. Normal axis. NO ST segment elevation or depression. Laboratory Tests Test 10/26/16 09:20 10/26/16 09:35 White Blood Count 8.9 TH/MM3 (4.0-11.0) Red Blood Count 5.52 MIL/MM3 (4.50-5.90) Hemoglobin 15.9 GM/DL (13.0-17.0) Hematocrit 47.1 % (39.0-51.0) Mean Corpuscular Volume 85.4 FL (80.0-100.0) Mean Corpuscular Hemoglobin 28.9 PG (27.0-34.0) Mean Corpuscular Hemoglobin Concent 33.8 % (32.0-36.0) Red Cell Distribution Width 13.8 % (11.6-17.2) Platelet Count 248 TH/MM3 (150-450) Mean Platelet Volume 7.5 FL (7.0-11.0) Neutrophils (%) (Auto) 49.8 % (16.0-70.0) Lymphocytes (%) (Auto) 40.3 % (9.0-44.0) Monocytes (%) (Auto) 8.8 % (0.0-8.0) Eosinophils (%) (Auto) 0.5 % (0.0-4.0) Basophils (%) (Auto) 0.6 % (0.0-2.0) Neutrophils # (Auto) 4.4 TH/MM3 (1.8-7.7) Lymphocytes # (Auto) 3.6 TH/MM3 (1.0-4.8) Monocytes # (Auto) 0.8 TH/MM3 (0-0.9) Eosinophils # (Auto) 0.0 TH/MM3 (0-0.4) Basophils # (Auto) 0.1 TH/MM3 (0-0.2) CBC Comment DIFF FINAL Differential Comment Prothrombin Time 12.0 SEC (9.8-11.6) Prothromb Time International Ratio 1.1 RATIO Activated Partial Thromboplast Time 27.1 SEC (24.3-30.1) Blood Urea Nitrogen 7 MG/DL (7-18) Creatinine 0.96 MG/DL (0.60-1.30) Random Glucose 81 MG/DL (74-106) Calcium Level 8.8 MG/DL (8.5-10.1) Sodium Level 138 MEQ/L (136-145) Potassium Level 3.5 MEQ/L (3.5-5.1) Chloride Level 106 MEQ/L (98-107) Carbon Dioxide Level 22.2 MEQ/L (21.0-32.0) Anion Gap 10 MEQ/L (5-15) Estimat Glomerular Filtration Rate 97 ML/MIN (>89) Troponin I 0.05 NG/ML (0.02-0.05) Salicylates Level 3.6 MG/DL (2.8-20.0) Acetaminophen Level LESS THAN 2.0 MCG/ML Ethyl Alcohol Level 173 MG/DL (0-5) Urine Opiates Screen NEG (NEG) Urine Barbiturates Screen NEG (NEG) Urine Amphetamines Screen NEG (NEG) Urine Benzodiazepines Screen NEG (NEG) Urine Cocaine Screen POS (NEG) Urine Cannabinoids Screen NEG (NEG) Last Impressions Chest X-Ray 10/26/16 0912 Signed Impressions: Service Date/Time: Wednesday, October 26, 2016 09:27 - CONCLUSION: Normal examination. Corey Marcus MD Elbow X-Ray 10/26/16 0000 Signed Impressions: Service Date/Time: Wednesday, October 26, 2016 09:29 - CONCLUSION: No acute abnormality seen. Corey Marcus MD Differential Diagnosis Malingering vs. atypical chest pain Narrative Course 60yo M with bipolar disorder and schizoaffective disorder here with chest pain after he was arrested. Do not think this is cardiac. Labs reviewed, no leukocytosis. Troponin negative. BMP unremarkable. Alcohol 173. Utox positive for cocaine. Acetaminophen level negative. salicylate level normal. CXR normal. Xray right elbow normal. Pt will be given acetaminophen for pain and discharge to police custody. Return precautions given. Diagnosis Primary Impression: Atypical chest pain Patient Instructions: General Instructions Departure Forms: Tests/Procedures Additional Instructions: Please follow up with your primary care physician in 3-7 days. Return to the ED if symptoms worsen. Med/Other Pt SpecificInfo: Prescription(s) given Scripts Acetaminophen (Tylenol) 325 Mg Tab 650 MG PO Q6H Y for PAIN SCALE 1 TO 4, #15 TAB 0 Refills Prov: Jerri Christine DO 10/26/16 Disposition: 01 DISCHARGE HOME Condition: Stable Jerri Christine DO Oct 26, 2016 09:21
[2016-10-26 09:32] LABS: AUTOMATED NEUTROPHIL # 4.4 TH/MM3 (1.8-7.7); BASOPHIL # 0.1 TH/MM3 (0-0.2); BASOPHIL % 0.6 % (0.0-2.0); EOSINOPHIL % 0.5 % (0.0-4.0); HEMATOCRIT 47.1 % (39.0-51.0); HEMO FLAGS DIFF FINAL; LYMPH % 40.3 % (9.0-44.0); LYMPHOCYTE # 3.6 TH/MM3 (1.0-4.8); MEAN CELL VOLUME 85.4 FL (80.0-100.0); MEAN CORPUSCULAR HEMOGLOBIN 28.9 PG (27.0-34.0); MEAN CORPUSCULAR HGB CONC 33.8 % (32.0-36.0); MONO % 8.8 % (0.0-8.0); NEUT % 49.8 % (16.0-70.0); PLATELET COUNT 248 TH/MM3 (150-450); RED BLOOD COUNT 5.52 MIL/MM3 (4.50-5.90); RED CELL DISTRIBUTION WIDTH 13.8 % (11.6-17.2); WHITE BLOOD COUNT 8.9 TH/MM3 (4.0-11.0)
[2016-10-26 09:40] LABS: APTT (PATIENT) 27.1 SEC (24.3-30.1); INTERNATIONAL NORMALIZED RATIO 1.1 RATIO
[2016-10-26 09:47] LABS: ANION GAP 10 MEQ/L (5-15); BICARBONATE 22.2 MEQ/L (21.0-32.0); BLOOD UREA NITROGEN 7 MG/DL (7-18); CHLORIDE 106 MEQ/L (98-107); GLOMERULAR FILTRATION RATE 97 ML/MIN (>89); POTASSIUM 3.5 MEQ/L (3.5-5.1); SODIUM (NA) 138 MEQ/L (136-145)
--- NOTE | 2016-10-26 09:49 | RADRPT ---
EXAM DATE/TIME: 10/26/2016 09:29 [facility] COMPARISON: No previous studies available for comparison. INDICATIONS : Right elbow pain, fell MEDICAL HISTORY : Hypertension. Diabetes mellitus type 2. Hepatitis C. SURGICAL HISTORY : None. ENCOUNTER: Initial ACUITY: 1 day PAIN SCORE: 2/10 LOCATION: Right Elbow FINDINGS: No fracture is seen. There is a minimal olecranon spur. No effusion is seen. The soft tissues are lyric ssly normal. CONCLUSION: No acute abnormality seen. Corey Marcus MD on October 26, 2016 at 9:47 Board Certified Radiologist. This report was verified electronically.
--- NOTE | 2016-10-26 09:49 | RADRPT ---
EXAM DATE/TIME: 10/26/2016 09:27 [facility] COMPARISON: CHEST SINGLE AP, October 09, 2016, 14:47. INDICATIONS : Chest pain, fell MEDICAL HISTORY : Hypertension. Diabetes mellitus type 2. Hepatitis C. SURGICAL HISTORY : None. ENCOUNTER: Initial ACUITY: 1 day PAIN SCORE: 0/10 LOCATION: chest FINDINGS: A single view of the chest demonstrates the lungs to be symmetrically aerated without evidence of mas s, infiltrate or effusion. The cardiomediastinal contours are unremarkable. Osseous structures are intact. CONCLUSION: Normal examination. Corey Marcus MD on October 26, 2016 at 9:47 Board Certified Radiologist. This report was verified electronically.
[2016-10-26 09:59] LABS: ALCOHOL 173 MG/DL (0-5)
[2016-10-26 10:06] LABS: ACETAMINOPHEN LESS THAN 2.0 MCG/ML (10.0-30.0)
[2016-10-26] MEDS ORDERED: TYLE325T PO (11:33)
[2016-10-26] MEDS ORDERED: ACETAMINOPHEN 325 MG TAB PO ONE (11:45)
--- NOTE | 2016-10-26 19:19 | EKG ---
Date Performed: 10/26/2016 Time Performed: 09:05:54 PTAGE: 60 years EKG: Sinus rhythm POSSIBLE LEFT ATRIAL ENLARGEMENT NONSPECIFIC T-WAVE ABNORMALITY BORDERLINE ECG NO PREVIOUS TRACING DOCTOR: Mehul Mckeon Interpretating Date/Time 10/26/2016 19:18:34
== END 2016-10-26 12:12 | disposition home or self-care (01) ==
LOC: NEPC 08:57
DX: R07.89 Other chest pain (principal); M25.521 Pain in right elbow; R94.31 Abnormal electrocardiogram [ECG] [EKG]; I10 Essential (primary) hypertension; E11.9 Type 2 diabetes mellitus without complications; F31.9 Bipolar disorder, unspecified; F25.9 Schizoaffective disorder, unspecified; Z79.01 Long term (current) use of anticoagulants; Z72.0 Tobacco use; Z79.899 Other long term (current) drug therapy
CPT/HCPCS: 71010; 73070; 80048; 80307; 84484; 85025; 85610; 85730; 93005; 99285

== ENCOUNTER 2016-11-14 19:33 | Emergency (ER) | payer OTHER ==
[~2016-11-14] VITALS: Ht 175.3 cm; Wt 82.0 kg
[~2016-11-14 19:33] MED LIST changes: +TYLE325T PO
[2016-11-14] MEDS ORDERED: SODIUM CHLOR 0.9% 1000 ML INJ 1,000 ML IV SCH (19:43)
[2016-11-14 19:45] VITALS: BP 137/72; PULSE 91; RESP 16; TEMP 98.4; O2SAT 97
[2016-11-14] MEDS ORDERED: SODIUM CHLORIDE 0.9% FLUSH 5 ML FLUSH IV FLUSH PRN (19:45)
[2016-11-14] MEDS ORDERED: ONDANSETRON HCL 4 MG/2 ML VIAL IV PUSH ONE (19:45)
[2016-11-14 20:07] LABS: AUTOMATED NEUTROPHIL # 5.3 TH/MM3 (1.8-7.7); BASOPHIL # 0.1 TH/MM3 (0-0.2); EOSINOPHIL % 0.4 % (0.0-4.0); HEMATOCRIT 47.6 % (39.0-51.0); HEMO FLAGS DIFF FINAL; LYMPH % 36.8 % (9.0-44.0); LYMPHOCYTE # 3.6 TH/MM3 (1.0-4.8); MEAN CORPUSCULAR HEMOGLOBIN 28.5 PG (27.0-34.0); MEAN CORPUSCULAR HGB CONC 33.5 % (32.0-36.0); MONO % 7.4 % (0.0-8.0); NEUT % 54.4 % (16.0-70.0); PLATELET COUNT 292 TH/MM3 (150-450); RED CELL DISTRIBUTION WIDTH 13.5 % (11.6-17.2); WHITE BLOOD COUNT 9.7 TH/MM3 (4.0-11.0)
[2016-11-14 20:30] LABS: BICARBONATE 25.7 MEQ/L (21.0-32.0); POTASSIUM 3.5 MEQ/L (3.5-5.1)
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
--- NOTE | 2016-11-15 13:37 | PD.PSY.CON ---
Provisional Diagnosis Admission Date [place] I. Cocaine abuse F 14.10, alcohol abuse/intoxication f 10.129, malingering z 76.5 History of Present Illness Service Psychiatry Consult Requested By EDMD Reason for Consult Assessment Primary Care Physician Unknown HPI Patient is a 60-year-old Afro-[place] male initially here by ambulance alcohol intoxication was also arrested by the police for first theft. He should seen screened in the ED blood alcohol level CLXXXII and toxicology positive for cocaine. Of interest is the patient 6 visit to the ED since the middle of September of this year. He subsequently meet vague suicidal statements. Of interest the patient is a doesn't benefits the [facility] here in [facility]. Patient does denies suicidality to me that he brings up a litany of various medical issues. Has been medically cleared through the ED. In any event this summer feel patient does not meet [place] act criteria I feel she degree of manipulation malingering involved with this man it appears she is homeless is quite malodorous and disheveled it is okay by psych for discharge when medically clear and stable, no Rx by me, may follow-up with Flavio Marchman act that's discretion also referral to AA/NA Review of Systems Constitutional: DENIES: Diaphoretic episodes, Fatigue, Fever, Weight gain, Weight loss, Chills, Dizziness, Change in appetite, Night Sweats Endocrine: DENIES: Heat/cold intolerance, Polydipsia, Polyuria, Polyphagia Eyes: DENIES: Blurred vision, Diplopia, Eye inflammation, Eye pain, Vision loss , Photosensitivity, Double Vision Ears, nose, mouth, throat: DENIES: Tinnitus, Hearing loss, Vertigo, Nasal discharge, Oral lesions, Throat pain, Hoarseness, Ear Pain, Running Nose, Epistaxis, Sinus Pain, Toothache, Odynophagia Respiratory: DENIES: Apneas, Cough, Snoring, Wheezing, Hemoptysis, Sputum production, Shortness of breath Cardiovascular: DENIES: Chest pain, Palpitations, Syncope, Dyspnea on Exertion , PND, Lower Extremity Edema, Orthopnea, Claudication Gastrointestinal: DENIES: Abdominal pain, Black stools, Bloody stools, Constipation, Diarrhea, Nausea, Vomiting, Difficulty Swallowing, Anorexia Genitourinary: DENIES: Sexual dysfunction, Urinary frequency, Urinary incontinence, Urgency, Hematuria, Dysuria, Nocturia, Penile Discharge, Testicular Pain, Testicular Swelling Musculoskeletal: DENIES: Joint pain, Muscle aches, Stiffness, Joint Swelling, Back pain, Neck pain Integumentary: DENIES: Abnormal pigmentation, Nail changes, Pruritus, Rash Hematologic/lymphatic: DENIES: Bruising, Lymphadenopathy Immunologic/allergic: DENIES: Eczema, Urticaria Neurologic: DENIES: Abnormal gait, Headache, Localized weakness, Paresthesias, Seizures, Speech Problems, Tremor, Poor Balance Psychiatric: COMPLAINS OF: Suicidal Ideation (vague ideation that I feel is manipulative in nature), DENIES: Anxiety, Confusion, Mood changes, Depression, Hallucinations, Agitation, Homicidal Ideation, Delusions Past Family Social History Coded Allergies: lisinopril (Unverified Allergy, Unknown, 11/14/16) Active Scripts Acetaminophen (Tylenol) 325 Mg Tab, 650 MG PO Q6H Y for PAIN SCALE 1 TO 4, #15 TAB 0 Refills Prov:ChristineJerri 10/26/16 Walker with Front Wheels (Walker with Front Wheels) 1 Mis Mis, 1 EA .ROUTE DIRECTED, #1 EA 0 Refills Prov:Leonor Vee PA-C 09/04/16 Thiamine HCl (Gnp Vitamin B-1) 100 Mg Tab, 100 MG PO DAILY for Nutritional Supplement, #5 TAB Prov:Thor Givens 07/06/16 Omeprazole (Omeprazole) 20 Mg Tab, 20 MG PO DAILY for Reflux, #30 TAB 0 Refills Prov:Thor Givens 07/06/[address] (Aspirin EC) 81 Mg Tabdr, 81 MG PO DAILY for Prevent Blood Clot, #30 TAB 0 Refills Prov:Leonor Vee PA-C 06/09/16 Reported Medications Gabapentin (Gabapentin) 600 Mg Tab, 600 MG PO BID, #60 TAB 0 Refills 09/25/16 Bupropion HCl (Bupropion HCl) 75 Mg Tab, 150 MG PO BID for Control Depression, TAB 0 Refills 06/08/16 Hydrochlorothiazide (Hydrochlorothiazide) 12.5 Mg Cap, 12.5 MG PO DAILY, #30 CAP 0 Refills 12/15/15 Albuterol 18 GM Inh (Ventolin Hfa 18 GM Inh) 90 Mcg/Act Aer, 2 PUFF INH Q6H Y for SHORTNESS OF BREATH, #1 INHALER 0 Refills 11/5/16 Insulin Human Isophane-Regular 70-30 Inj (Novolin 70-30 Inj) 1,000 Unit/10 Ml Vial, 50 UNITS SQ BID for Blood Sugar Management, ML 0 Refills 12/15/15 Methocarbamol (Methocarbamol) 750 Mg Tab, 750 MG PO HS for Muscle Spasm, #120 TAB 0 Refills 12/15/15 Current Medications Medications (Trade) Dose Ordered Sig/Salas Route Start Time Stop Time Status Last Admin (NS Flush) 2 ml UNSCH PRN IV FLUSH 11/14/16 19:45 Family Psych History Unknown at this time Social History Appears patient homeless chronic alcohol and cocaine abuser Patient's Strengths (min. 2) Patient verbal labile axis health care Physical Exam Patient medically cleared ED Vital Signs Vital Signs Date Time Temp Pulse Resp B/P (MAP) Pulse Ox O2 Delivery O2 Flow Rate FiO2 11/14/16 19:45 98.4 91 16 137/72 (93) 97 Lab Results Test 11/14/16 19:55 11/14/16 21:05 White Blood Count 9.7 TH/MM3 Red Blood Count 5.60 MIL/MM3 Hemoglobin 16.0 GM/DL Hematocrit 47.6 % Mean Corpuscular Volume 85.0 FL Mean Corpuscular Hemoglobin 28.5 PG Mean Corpuscular Hemoglobin Concent 33.5 % Red Cell Distribution Width 13.5 % Platelet Count 292 TH/MM3 Mean Platelet Volume 7.0 FL Neutrophils (%) (Auto) 54.4 % Lymphocytes (%) (Auto) 36.8 % Monocytes (%) (Auto) 7.4 % Eosinophils (%) (Auto) 0.4 % Basophils (%) (Auto) 1.0 % Neutrophils # (Auto) 5.3 TH/MM3 Lymphocytes # (Auto) 3.6 TH/MM3 Monocytes # (Auto) 0.7 TH/MM3 Eosinophils # (Auto) 0.0 TH/MM3 Basophils # (Auto) 0.1 TH/MM3 CBC Comment DIFF FINAL Differential Comment Blood Urea Nitrogen 5 MG/DL Creatinine 1.04 MG/DL Random Glucose 118 MG/DL Calcium Level 8.8 MG/DL Sodium Level 139 MEQ/L Potassium Level 3.5 MEQ/L Chloride Level 103 MEQ/L Carbon Dioxide Level 25.7 MEQ/L Anion Gap 10 MEQ/L Estimat Glomerular Filtration Rate 89 ML/MIN Ethyl Alcohol Level 182 MG/DL Urine Opiates Screen NEG Urine Barbiturates Screen NEG Urine Amphetamines Screen NEG Urine Benzodiazepines Screen NEG Urine Cocaine Screen POS Urine Cannabinoids Screen NEG Mental Status Examination Appearance: Dirty, Disheveled, Malodorous Consciousness: Alert Orientation: x4 Motor Activity: Normal gait Speech: Pressured, Rapid, Hesitant Language: Adequate Fund of Knowledge: Poor Attention and Concentration: Other (fair) Memory: Unremarkable Mood: Angry, Irritable, Other (somewhat restricted) Affect: Other (decreased range and intensity) Thought Process & Associations: Linear Thought Content: Bizarre thinking Hallucination Type: None Delusion Type: None Suicidal Ideation: No Suicidal Plan: No Suicidal Intention: No Homicidal Ideation: No Homicidal Plan: No Homicidal Intention: No Insight: Poor Judgment: Poor Assessment & Plan Problem List: (1) Cocaine abuse ICD Codes: F14.10 - Cocaine abuse, uncomplicated Status: Chronic (2) Alcohol abuse with intoxication ICD Codes: F10.129 - Alcohol abuse with intoxication, unspecified (3) Malingering ICD Codes: Z76.5 - Malingerer [conscious simulation] Assessment & Plan Estimated LOS: days patient does not meet criteria for inpatient psychiatric hospitalization. As okay by psych for discharge for medically clear and stable. No Rx by me. Referred to AA/NA Discharge Planning See above Request HC Surrog/Guard Advoc?: No Corey Padron MD Nov 15, 2016 13:37
== END 2016-11-15 13:30 | disposition home or self-care (01) ==
LOC: NEPD 19:33
DX: F14.10 Cocaine abuse, uncomplicated (principal); F10.920 Alcohol use, unspecified with intoxication, uncomplicated; S00.81XA Abrasion of other part of head, initial encounter; I10 Essential (primary) hypertension; E11.9 Type 2 diabetes mellitus without complications; Y33.XXXA Other specified events, undetermined intent, initial encounter; Z79.899 Other long term (current) drug therapy; Z72.0 Tobacco use
CPT/HCPCS: 70450; 80048; 80307; 85025; 96374; 99285; J2405; J7030

== ENCOUNTER 2016-12-01 15:34 | Observation (INO) | payer OTHER ==
[~2016-12-01] VITALS: Ht 180.3 cm; Wt 88.0 kg
[2016-12-01 15:53] VITALS: BP 158/80; PULSE 84; RESP 20; TEMP 98; O2SAT 98
[2016-12-01] MEDS ORDERED: NALOXONE HCL 2 MG/2 ML VIAL ONE (15:53)
[2016-12-01] MEDS ORDERED: SODIUM CHLOR 0.9% 1000 ML INJ 1,000 ML IV ONE (15:54)
[2016-12-01 15:57] VITALS: PULSE 87; RESP 18; O2SAT 99
[2016-12-01] MEDS ORDERED: ACTIVATED CHARCOAL LIQUID 25 GM/120 ML BTL PO/NG ONE (16:00)
[2016-12-01] MEDS ORDERED: SODIUM CHLORIDE 0.9% FLUSH 10 ML FLUSH IVF PRN (16:00)
--- NOTE | 2016-12-01 16:22 | RADRPT ---
EXAM DATE/TIME: 12/01/2016 15:56 [place] COMPARISON: CHEST SINGLE AP, October 26, 2016, 9:27. INDICATIONS : Syncope MEDICAL HISTORY : Hypertension. Diabetes mellitus type 2. Hepatitis C. SURGICAL HISTORY : ENCOUNTER: Initial ACUITY: 1 day PAIN SCORE: Non-responsive. LOCATION: chest FINDINGS: A single view of the chest demonstrates the lungs to be symmetrically aerated without evidence of mas s, infiltrate or effusion. The cardiomediastinal contours are unremarkable. Osseous structures are intact. CONCLUSION: 1. No acute abnormality or significant interval change. Ricky Mcintosh MD on December 01, 2016 at 16:20 Board Certified Radiologist. This report was verified electronically.
[2016-12-01 16:31] LABS: AUTOMATED NEUTROPHIL # 4.7 TH/MM3 (1.8-7.7); BASOPHIL # 0.1 TH/MM3 (0-0.2); BASOPHIL % 0.9 % (0.0-2.0); EOSINOPHIL # 0.1 TH/MM3 (0-0.4); EOSINOPHIL % 1.1 % (0.0-4.0); HEMATOCRIT 45.2 % (39.0-51.0); HEMO FLAGS DIFF FINAL; LYMPH % 37.2 % (9.0-44.0); LYMPHOCYTE # 3.4 TH/MM3 (1.0-4.8); MEAN CELL VOLUME 86.5 FL (80.0-100.0); MEAN CORPUSCULAR HEMOGLOBIN 28.7 PG (27.0-34.0); MEAN CORPUSCULAR HGB CONC 33.2 % (32.0-36.0); MONO % 9.2 % (0.0-8.0); NEUT % 51.6 % (16.0-70.0); PLATELET COUNT 160 TH/MM3 (150-450); RED BLOOD COUNT 5.23 MIL/MM3 (4.50-5.90); WHITE BLOOD COUNT 9.2 TH/MM3 (4.0-11.0)
--- NOTE | 2016-12-01 17:01 | PD ---
HPI Chief Complaint: OD/ Ingestion Time Seen by Provider: 15:54 Travel History International Travel<30 days: No Contact w/Intl Traveler<30days: No Traveled to known affect area: No History of Present Illness HPI the patient is 61 years old. He arrives by EMS. Evidently he was found minimally responsive by a visiting nurse. He is believed to have ingested heroin and Xanax. Upon arrival to the ER the history somewhat limited due to somnolence today. Prior visits to the ER for overdose have been observed. PFSH Past Medical History Hx Anticoagulant Therapy: Yes (ASPIRIN) Blood Disorders: No Anxiety: Yes Depression: Yes Heart Rhythm Problems: No Cancer: No Cardiovascular Problems: Yes (HTN) High Cholesterol: Yes Chest Pain: Yes Congestive Heart Failure: No COPD: No Diabetes: Yes Diminished Hearing: No Endocrine: Yes Gastrointestinal Disorders: Yes GERD: Yes Genitourinary: No Hepatitis: Yes (C) Hypertension: Yes Immune Disorder: No Implanted Vascular Access Dvce: No Musculoskeletal: No Neurologic: No Psychiatric: Yes Reproductive: No Respiratory: No Immunizations Current: Yes Sleep Apnea: Yes (CPAP) Past Surgical History Abdominal Surgery: No Cardiac Surgery: No Endocrine Surgery: No Eye Surgery: Yes (RETINA SOCKET REPAIR) Genitourinary Surgery: No Gynecologic Surgery: No Thoracic Surgery: No Other Surgery: Yes (RIGHT HAND, RIGHT EYE) Social History Alcohol Use: Yes (beer daily 8 pkg) Tobacco Use: Yes (1 PPD) Substance Use: Yes (Crack cocaine) Allergies-Medications (Allergen,Severity, Reaction): Coded Allergies: lisinopril (Unverified Allergy, Unknown, 11/14/16) Reported Meds & Prescriptions Reported Meds & Active Scripts Active Tylenol (Acetaminophen) 325 Mg Tab 650 Mg PO Q6H PRN Walker with Front Wheels (Device) 1 Mis Mis 1 Ea .ROUTE DIRECTED Gnp Vitamin B-1 (Thiamine HCl) 100 Mg Tab 100 Mg PO DAILY Omeprazole 20 Mg Tab 20 Mg PO DAILY Aspirin EC (Aspirin) 81 Mg Tabdr 81 Mg PO DAILY Reported Gabapentin 600 Mg Tab 600 Mg PO BID Bupropion HCl 75 Mg Tab 150 Mg PO BID Hydrochlorothiazide 12.5 Mg Cap 12.5 Mg PO DAILY Ventolin Hfa 18 GM Inh (Albuterol Sulfate) 90 Mcg/Act Aer 2 Puff INH Q6H PRN Novolin 70-30 Inj (Insulin Human Isoph/Insulin Regular) 1,000 Unit/10 Ml Vial 50 Units SQ BID Methocarbamol 750 Mg Tab 750 Mg PO HS Review of Systems Except as stated in HPI: all other systems reviewed are Neg General / Constitutional: No: Fever Physical Exam Narrative GENERAL: 61 yo M, NAD, WNWD SKIN: Warm and dry. HEAD: Atraumatic. Normocephalic. EYES: Pupils equal and round. No scleral icterus. No injection or drainage. ENT: No nasal bleeding or discharge. Mucous membranes pink and moist. NECK: Trachea midline. No JVD. CARDIOVASCULAR: Regular rate and rhythm. RESPIRATORY: No accessory muscle use. Clear to auscultation. Breath sounds equal bilaterally. GASTROINTESTINAL: Abdomen soft, non-tender, nondistended. Hepatic and splenic margins not palpable. MUSCULOSKELETAL: Extremities without clubbing, cyanosis, or edema. No obvious deformities. NEUROLOGICAL: Awake and alert. No obvious cranial nerve deficits. Motor grossly within normal limits. Five out of 5 muscle strength in the arms and legs. Normal speech. PSYCHIATRIC: Appropriate mood and affect; insight and judgment normal. Data Data Last Documented VS Vital Signs Date Time Temp Pulse Resp B/P (MAP) Pulse Ox O2 Delivery O2 Flow Rate FiO2 12/01/16 20:05 98.9 85 24 173/92 (119) 94 Nasal Cannula 2.00 VS reviewed Orders Orders Naloxone Inj (Narcan Inj) (12/01/16 15:53) Electrocardiogram (12/01/16 15:54) Basic Metabolic Panel (Bmp) (12/01/16 15:54) Complete Blood Count With Diff (12/01/16 15:54) Chest, Single Ap (12/01/16 15:54) Iv Access Insert/Monitor (12/01/16 15:54) Ecg Monitoring (12/01/16 15:54) Oximetry (12/01/16 15:54) Charcoal Activated Liq (Actidose-Aqua Li (12/01/16 16:00) Sodium Chloride 0.9% Flush (Ns Flush) (12/01/16 16:00) Sodium Chlor 0.9% 1000 Ml Inj (Ns 1000 M (12/01/16 15:54) Drug Screen, Random Urine (12/01/16 15:54) Alcohol (Ethanol) (12/01/16 15:54) Salicylates (Aspirin) (12/01/16 15:54) Tylenol (Acetaminophen) (12/01/16 15:54) Insert Ng Tube (12/01/16 17:43) Naloxone Inj (Narcan Inj) (12/01/16 17:45) Phenobarbital (12/01/16 18:40) Admit Order (Ed Use Only) (12/01/16 20:35) Place In Observation (12/01/16 ) Vital Signs (Adult) Q4H (12/01/16 20:35) Neuro Checks Q4H (12/01/16 20:35) Activity Bed Rest (12/01/16 20:35) Labs Laboratory Tests Test 12/01/16 16:10 12/01/16 17:00 White Blood Count 9.2 TH/MM3 Red Blood Count 5.23 MIL/MM3 Hemoglobin 15.0 GM/DL Hematocrit 45.2 % Mean Corpuscular Volume 86.5 FL Mean Corpuscular Hemoglobin 28.7 PG Mean Corpuscular Hemoglobin Concent 33.2 % Red Cell Distribution Width 14.0 % Platelet Count 160 TH/MM3 Mean Platelet Volume 7.7 FL Neutrophils (%) (Auto) 51.6 % Lymphocytes (%) (Auto) 37.2 % Monocytes (%) (Auto) 9.2 % Eosinophils (%) (Auto) 1.1 % Basophils (%) (Auto) 0.9 % Neutrophils # (Auto) 4.7 TH/MM3 Lymphocytes # (Auto) 3.4 TH/MM3 Monocytes # (Auto) 0.8 TH/MM3 Eosinophils # (Auto) 0.1 TH/MM3 Basophils # (Auto) 0.1 TH/MM3 CBC Comment DIFF FINAL Differential Comment Blood Urea Nitrogen 11 MG/DL Creatinine 0.97 MG/DL Random Glucose 132 MG/DL Calcium Level 8.6 MG/DL Sodium Level 135 MEQ/L Potassium Level 4.5 MEQ/L Chloride Level 104 MEQ/L Carbon Dioxide Level 26.4 MEQ/L Anion Gap 5 MEQ/L Estimat Glomerular Filtration Rate 96 ML/MIN Troponin I 0.04 NG/ML Salicylates Level 2.4 MG/DL Acetaminophen Level LESS THAN 2.0 MCG/ML Phenobarbital Level 4.4 MCG/ML Ethyl Alcohol Level LESS THAN 3 MG/DL Urine Opiates Screen NEG Urine Barbiturates Screen POS Urine Amphetamines Screen NEG Urine Benzodiazepines Screen POS Urine Cocaine Screen POS Urine Cannabinoids Screen NEG MDM Medical Decision Making Medical Screen Exam Complete: Yes Emergency Medical Condition: Yes Medical Record Reviewed: Yes Differential Diagnosis psa, overdose, acetaminophen coingestion Narrative Course CBC & BMP Diagram 12/01/16 16:10 Calcium Level 8.6 UTOX positive for barbiturates, benzos and cocaine etoh < 3 phenobarbital level added with results pending oncoming provider to follow up with plan for discharge if the phenobarb level is normal Johann Benites MD Dec 01, 2016 17:00
[2016-12-01 17:07] VITALS: BP 175/80; PULSE 87; RESP 26; O2SAT 98
[2016-12-01 17:08] LABS: ACETAMINOPHEN LESS THAN 2.0 MCG/ML (10.0-30.0); ALCOHOL LESS THAN 3 MG/DL (0-5); ANION GAP 5 MEQ/L (5-15); BICARBONATE 26.4 MEQ/L (21.0-32.0); BLOOD UREA NITROGEN 11 MG/DL (7-18); CHLORIDE 104 MEQ/L (98-107); GLOMERULAR FILTRATION RATE 96 ML/MIN (>89); POTASSIUM 4.5 MEQ/L (3.5-5.1); SODIUM (NA) 135 MEQ/L (136-145)
[2016-12-01] MEDS ORDERED: NALOXONE HCL 2 MG/2 ML VIAL IV PUSH ONE (17:45)
[2016-12-01 19:02] VITALS: BP 166/99; PULSE 83
[2016-12-01 20:05] VITALS: BP 173/92; PULSE 85; RESP 24; TEMP 98.9; O2SAT 94
--- NOTE | 2016-12-01 20:16 | PD ---
Physical Exam Date Seen by Provider: Dec 01, 2016 Time Seen by Provider: 20:15 Narrative 61-year-old male came to the emergency room with altered mental status and possible overdose. He was seen by the previous ER physician. Please refer to his notes for further details on history and physical. His blood test result and urine tox screen results yielded positive phenobarb among other substances. The concern was if there was a phenobarbital overdose. The physician had ordered phenobarbital level in the sign out was to follow-up on the phenobarbital level. This test result is back and it is low. Data Data Last Documented VS Orders Orders Naloxone Inj (Narcan Inj) (12/01/16 15:53) Electrocardiogram (12/01/16 15:54) Basic Metabolic Panel (Bmp) (12/01/16 15:54) Complete Blood Count With Diff (12/01/16 15:54) Chest, Single Ap (12/01/16 15:54) Iv Access Insert/Monitor (12/01/16 15:54) Ecg Monitoring (12/01/16 15:54) Oximetry (12/01/16 15:54) Charcoal Activated Liq (Actidose-Aqua Li (12/01/16 16:00) Sodium Chloride 0.9% Flush (Ns Flush) (12/01/16 16:00) Sodium Chlor 0.9% 1000 Ml Inj (Ns 1000 M (12/01/16 15:54) Drug Screen, Random Urine (12/01/16 15:54) Alcohol (Ethanol) (12/01/16 15:54) Salicylates (Aspirin) (12/01/16 15:54) Tylenol (Acetaminophen) (12/01/16 15:54) Insert Ng Tube (12/01/16 17:43) Naloxone Inj (Narcan Inj) (12/01/16 17:45) Phenobarbital (12/01/16 18:40) Admit Order (Ed Use Only) (12/01/16 20:35) Place In Observation (12/01/16 ) Vital Signs (Adult) Q4H (12/01/16 20:35) Neuro Checks Q4H (12/01/16 20:35) Activity Bed Rest (12/01/16 20:35) Labs Laboratory Tests Test 12/01/16 16:10 10/23/17 17:00 White Blood Count 9.2 TH/MM3 Red Blood Count 5.23 MIL/MM3 Hemoglobin 15.0 GM/DL Hematocrit 45.2 % Mean Corpuscular Volume 86.5 FL Mean Corpuscular Hemoglobin 28.7 PG Mean Corpuscular Hemoglobin Concent 33.2 % Red Cell Distribution Width 14.0 % Platelet Count 160 TH/MM3 Mean Platelet Volume 7.7 FL Neutrophils (%) (Auto) 51.6 % Lymphocytes (%) (Auto) 37.2 % Monocytes (%) (Auto) 9.2 % Eosinophils (%) (Auto) 1.1 % Basophils (%) (Auto) 0.9 % Neutrophils # (Auto) 4.7 TH/MM3 Lymphocytes # (Auto) 3.4 TH/MM3 Monocytes # (Auto) 0.8 TH/MM3 Eosinophils # (Auto) 0.1 TH/MM3 Basophils # (Auto) 0.1 TH/MM3 CBC Comment DIFF FINAL Differential Comment Blood Urea Nitrogen 11 MG/DL Creatinine 0.97 MG/DL Random Glucose 132 MG/DL Calcium Level 8.6 MG/DL Sodium Level 135 MEQ/L Potassium Level 4.5 MEQ/L Chloride Level 104 MEQ/L Carbon Dioxide Level 26.4 MEQ/L Anion Gap 5 MEQ/L Estimat Glomerular Filtration Rate 96 ML/MIN Troponin I 0.04 NG/ML Salicylates Level 2.4 MG/DL Acetaminophen Level LESS THAN 2.0 MCG/ML Phenobarbital Level 4.4 MCG/ML Ethyl Alcohol Level LESS THAN 3 MG/DL Urine Opiates Screen NEG Urine Barbiturates Screen POS Urine Amphetamines Screen NEG Urine Benzodiazepines Screen POS Urine Cocaine Screen POS Urine Cannabinoids Screen NEG MDM Supervised Visit with REINA: No Narrative Course 8:19 PM upon reassessment patient is still very somnolent. Upon calling his name loudly he will wake up and make incomprehensible words. And then falls right back to sleep. Again given the fact that he is positive for benzos and the quantity is unknown I would prefer to keep him in the observation unit given his altered mental status. At this point his GCS is 12. Awaiting for the hospitalist to call back. Diagnosis Primary Impression: Polysubstance abuse Additional Impression: Altered mental status Qualified Codes: R40.1 - Stupor Admitting Information Admitting Physician Requests: Observation Christin Palomares MD Dec 01, 2016 20:16
--- NOTE | 2016-12-01 21:41 | HHI.HP ---
[facility] Service Family Medicine Primary Care Physician No Primary Care Physician Admission Diagnosis altered mental status, polysubstance abuse Diagnoses: International Travel<30 Days: No Contact w/Intl Traveler<30days: No Known Affected Area: No (Elgin Bell MD R2) History of Present Illness cocaine 3am yesterday, about 1 gram -Denies CP, HUGO - drank 6 pack beer case parker came to his place in the morning and told him to come into hospital vomit last night xanax 1 [place], 2015, [place]al (Kelly Victor MD, R1) Past Family Social History Allergies: Coded Allergies: lisinopril (Unverified Allergy, Unknown, 11/14/16) Physical Exam Vital Signs Vital Signs Date Time Temp Pulse Resp B/P (MAP) Pulse Ox O2 Delivery O2 Flow Rate FiO2 12/01/16 21:19 12/01/16 20:05 98.9 85 24 173/92 (119) 94 Nasal Cannula 2.00 12/01/16 19:02 83 166/99 (121) 12/01/16 17:07 87 26 175/80 (111) 98 Nasal Cannula 2.00 12/01/16 15:57 87 18 99 Nasal Cannula 3.00 12/01/16 15:53 98.0 84 20 158/80 (106) 98 Physical Exam GENERAL: This is a well-nourished, well-developed patient, in no apparent distress. SKIN: No rashes, ecchymoses or lesions. Cool and dry. HEAD: Atraumatic. Normocephalic. No temporal or scalp tenderness. EYES: Pupils equal round and reactive. Extraocular motions intact. No scleral icterus. No injection or drainage. ENT: Nose without bleeding, purulent drainage or septal hematoma. Throat without erythema, tonsillar hypertrophy or exudate. Uvula midline. Airway patent. NECK: Trachea midline. No JVD or lymphadenopathy. Supple, nontender, no meningeal signs. CARDIOVASCULAR: Regular rate and rhythm without murmurs, gallops, or rubs. RESPIRATORY: Clear to auscultation. Breath sounds equal bilaterally. No wheezes , rales, or rhonchi. GASTROINTESTINAL: Abdomen soft, non-tender, nondistended. No hepato-splenomegaly , or palpable masses. No guarding. MUSCULOSKELETAL: Extremities without clubbing, cyanosis, or edema. No joint tenderness, effusion, or edema noted. No calf tenderness. Negative Homans sign bilaterally. NEUROLOGICAL: Awake and alert. Cranial nerves II through XII intact. Motor and sensory grossly within normal limits. Five out of 5 muscle strength in all muscle groups. Normal speech. Laboratory Laboratory Tests Test 12/01/16 16:10 12/01/16 17:00 White Blood Count 9.2 Red Blood Count 5.23 Hemoglobin 15.0 Hematocrit 45.2 Mean Corpuscular Volume 86.5 Mean Corpuscular Hemoglobin 28.7 Mean Corpuscular Hemoglobin Concent 33.2 Red Cell Distribution Width 14.0 Platelet Count 160 Mean Platelet Volume 7.7 Neutrophils (%) (Auto) 51.6 Lymphocytes (%) (Auto) 37.2 Monocytes (%) (Auto) 9.2 Eosinophils (%) (Auto) 1.1 Basophils (%) (Auto) 0.9 Neutrophils # (Auto) 4.7 Lymphocytes # (Auto) 3.4 Monocytes # (Auto) 0.8 Eosinophils # (Auto) 0.1 Basophils # (Auto) 0.1 CBC Comment DIFF FINAL Differential Comment Blood Urea Nitrogen 11 Creatinine 0.97 Random Glucose 132 Calcium Level 8.6 Sodium Level 135 Potassium Level 4.5 Chloride Level 104 Carbon Dioxide Level 26.4 Anion Gap 5 Estimat Glomerular Filtration Rate 96 Salicylates Level 2.4 Acetaminophen Level LESS THAN 2.0 Phenobarbital Level 4.4 Ethyl Alcohol Level LESS THAN 3 Urine Opiates Screen NEG Urine Barbiturates Screen POS Urine Amphetamines Screen NEG Urine Benzodiazepines Screen POS Urine Cocaine Screen POS Urine Cannabinoids Screen NEG (Elgin Bell MD R2) Result Diagram: 12/01/16 16112/01/161609 Caprini VTE Risk Assessment Caprini Risk Assessment Model Point Value = 1 Point Value = 2 Point Value = 3 Point Value = 5 Age 41-60 Minor surgery BMI > 25 kg/m2 Swollen legs Varicose veins or History of unexplained or recurrent spontaneous Oral contraceptives or hormone replacement Sepsis (< 1 month) Serious lung disease, including pneumonia (< 1 month) Abnormal pulmonary function Acute myocardial infarction Congestive heart failure (< 1 month) History of inflammatory bowel disease Medical patient at bed rest Age 61-74 Arthroscopic surgery Major open surgery (> 45 min) Laparoscopic surgery (> 45 min) Malignancy Confined to bed (> 72 hours) Immobilizing plaster cast Central venous access Age >= 75 History of VTE Family history of VTE Factor V Leiden Prothrombin [id number] Lupus anticoagulant Anticardiolipin antibodies Elevated serum homocysteine Heparin-induced thrombocytopenia Other congenital or acquired thrombophilia Stroke (< 1 month) Elective arthroplasty Hip, pelvis, or leg fracture Acute spinal cord injury (< 1 month) Prophylaxis Regimen Total Risk Factor Score Risk Level Prophylaxis Regimen 0-1 Low Early ambulation 2 Moderate Order ONE of the following: *Sequential Compression Device (SCD) *Heparin 5000 units SQ BID 3-4 Higher Order ONE of the following medications: *Heparin 5000 units SQ TID *Enoxaparin/Lovenox 40 mg SQ daily (WT < 150 kg, CrCl > 30 mL/min) *Enoxaparin/Lovenox 30 mg SQ daily (WT < 150 kg, CrCl > 10-29 mL/min) *Enoxaparin/Lovenox 30 mg SQ BID (WT < 150 kg, CrCl > 30 mL/min) AND/OR *Sequential Compression Device (SCD) 5 or more Highest Order ONE of the following medications: *Heparin 5000 units SQ TID (Preferred with Epidurals) *Enoxaparin/Lovenox 40 mg SQ daily (WT < 150 kg, CrCl > 30 mL/min) *Enoxaparin/Lovenox 30 mg SQ daily (WT < 150 kg, CrCl > 10-29 mL/min) *Enoxaparin/Lovenox 30 mg SQ BID (WT < 150 kg, CrCl > 30 mL/min) AND *Sequential Compression Device (SCD) (Elgin Bell MD R2) Physician Certification Order for Inpatient Services The services are ordered in accordance with Medicare regulations or non- Medicare payer requirements, as applicable. In the case of services not specified as inpatient-only, they are appropriately provided as inpatient services in accordance with the 2-midnight benchmark. days is the estimated time the patient will need to remain in the hospital, assuming treatment plan goals are met and no additional complications. (Elgin Bell MD R2) Elgin Bell MD R2 Dec 01, 2016 21:41 Kelly Victor MD, R1 Dec 02, 2016 00:28
[2016-12-01 21:46] VITALS: BP 132/79; PULSE 77; RESP 16; TEMP 98; O2SAT 97
[2016-12-02] VITALS (9 sets, daily range): BP systolic 135–146; BP diastolic 63–90; PULSE 78–91; RESP 17–24; TEMP 97.4–98.1; O2SAT 95–99
--- NOTE | 2016-12-02 01:04 | HHI.HP ---
HPI Service Family Medicine Primary Care Physician No Primary Care Physician Admission Diagnosis altered mental status, polysubstance abuse Diagnoses: International Travel<30 Days: No Contact w/Intl Traveler<30days: No Known Affected Area: No History of Present Illness Patient is a 61-year-old Male that presented to the ED due to AMS. Pt is a poor historian. Pt reported his manager of case came see him in the morning and due to how he looked told him to come to the hospital. Pt stated he used about 1g of cocaine the day prior to admission (around 3am). Pt also reports using xanax (1 tab) and drinking a 6-pack of beer. Endorses vomiting x1 last night. Pt was at times not coherent and unable to follow instructions or answer questions. Pt was alert and eating with not difficulty at time of H&P. Pt is currently oriented to person but wrongly answered (place, [facility] Denies CP or HUGO. Of note pt provided phone number for manager of case and his medical proxy. Will attempt to contact them to obtain a better pt hx. (Kelly Victor MD, R1) Review of Systems Cardiovascular: DENIES: Chest pain Gastrointestinal: COMPLAINS OF: Black stools Musculoskeletal: COMPLAINS OF: Muscle aches (Left shoulder ache) Neurologic: DENIES: Headache Other as per hpi (Kelly Victor MD, R1) Past Family Social History Past Medical History neuropathy Past Surgical History unable to obtain (Kelly Victor MD, R1) Allergies: Coded Allergies: lisinopril (Unverified Allergy, Unknown, 11/14/16) Social History Pt lives in an apartment in [place] [facility] drug use: (Kelly Victor MD, R1) Physical Exam Vital Signs Vital Signs Date Time Temp Pulse Resp B/P (MAP) Pulse Ox O2 Delivery O2 Flow Rate FiO2 12/01/16 21:46 98.0 77 16 132/79 (96) 97 12/01/16 21:19 12/01/16 20:05 98.9 85 24 173/92 (119) 94 Nasal Cannula 2.00 12/01/16 19:02 83 166/99 (121) 12/01/16 17:07 87 26 175/80 (111) 98 Nasal Cannula 2.00 12/01/16 15:57 87 18 99 Nasal Cannula 3.00 12/01/16 15:53 98.0 84 20 158/80 (106) 98 Physical Exam GENERAL: This is a well-nourished, well-developed patient, in no apparent distress. AAOx1. Patient was siting comfortably in chair eating. SKIN: No rashes, ecchymoses or lesions. Cool and dry. HEAD: Atraumatic. Normocephalic. No temporal or scalp tenderness. EYES: Pupils equal round and reactive. Extraocular motions intact. mild scleral discoloration noted. No injection or drainage. ENT: Nose with clear drainage, without bleeding or septal hematoma. Throat without erythema, tonsillar hypertrophy or exudate. Uvula midline. Airway patent. NECK: Trachea midline. No JVD or lymphadenopathy. Supple, nontender, no meningeal signs. Slight tenderness to palpation on Left shoulder. CARDIOVASCULAR: Normal s1 and s2. Regular rate and rhythm without murmurs, gallops, or rubs. RESPIRATORY: Clear to auscultation. Breath sounds equal bilaterally. No wheezes , rales, or rhonchi. GASTROINTESTINAL: Abdomen soft, non-tender, nondistended. No hepato-splenomegaly , or palpable masses. No guarding. MUSCULOSKELETAL: Extremities without clubbing, cyanosis, or edema. No joint tenderness, effusion, or edema noted. No calf tenderness. Negative Homans sign bilaterally. +2 posterior tibial pulses BL. NEUROLOGICAL: Awake and alert. Cranial nerves II through XII intact. Motor and sensory grossly within normal limits. Five out of 5 muscle strength in all muscle groups. Tangential speech. Laboratory Laboratory Tests Test 12/01/16 16:10 12/01/16 17:00 White Blood Count 9.2 Red Blood Count 5.23 Hemoglobin 15.0 Hematocrit 45.2 Mean Corpuscular Volume 86.5 Mean Corpuscular Hemoglobin 28.7 Mean Corpuscular Hemoglobin Concent 33.2 Red Cell Distribution Width 14.0 Platelet Count 160 Mean Platelet Volume 7.7 Neutrophils (%) (Auto) 51.6 Lymphocytes (%) (Auto) 37.2 Monocytes (%) (Auto) 9.2 Eosinophils (%) (Auto) 1.1 Basophils (%) (Auto) 0.9 Neutrophils # (Auto) 4.7 Lymphocytes # (Auto) 3.4 Monocytes # (Auto) 0.8 Eosinophils # (Auto) 0.1 Basophils # (Auto) 0.1 CBC Comment DIFF FINAL Differential Comment Blood Urea Nitrogen 11 Creatinine 0.97 Random Glucose 132 Calcium Level 8.6 Sodium Level 135 Potassium Level 4.5 Chloride Level 104 Carbon Dioxide Level 26.4 Anion Gap 5 Estimat Glomerular Filtration Rate 96 Salicylates Level 2.4 Acetaminophen Level LESS THAN 2.0 Phenobarbital Level 4.4 Ethyl Alcohol Level LESS THAN 3 Urine Opiates Screen NEG Urine Barbiturates Screen POS Urine Amphetamines Screen NEG Urine Benzodiazepines Screen POS Urine Cocaine Screen POS Urine Cannabinoids Screen NEG (Kelly Victor MD, R1) Result Diagram: 12/01/16 1610 12/01/16 1610 Imaging Last 48 hours Impressions Chest X-Ray 12/01/16 1554 Signed Impressions: Service Date/Time: Thursday, December 01, 2016 15:56 - CONCLUSION: 1. No acute abnormality or significant interval change. Ricky Mcintosh MD (Kelly Victor MD, R1) Caprini VTE Risk Assessment Caprini VTE Risk Assessment: Mod/High Risk (score >= 2) Caprini Risk Assessment Model Point Value = 1 Point Value = 2 Point Value = 3 Point Value = 5 Age 41-60 Minor surgery BMI > 25 kg/m2 Swollen legs Varicose veins or History of unexplained or recurrent spontaneous Oral contraceptives or hormone replacement Sepsis (< 1 month) Serious lung disease, including pneumonia (< 1 month) Abnormal pulmonary function Acute myocardial infarction Congestive heart failure (< 1 month) History of inflammatory bowel disease Medical patient at bed rest Age 61-74 Arthroscopic surgery Major open surgery (> 45 min) Laparoscopic surgery (> 45 min) Malignancy Confined to bed (> 72 hours) Immobilizing plaster cast Central venous access Age >= 75 History of VTE Family history of VTE Factor V Leiden Prothrombin [id number] Lupus anticoagulant Anticardiolipin antibodies Elevated serum homocysteine Heparin-induced thrombocytopenia Other congenital or acquired thrombophilia Stroke (< 1 month) Elective arthroplasty Hip, pelvis, or leg fracture Acute spinal cord injury (< 1 month) Prophylaxis Regimen Total Risk Factor Score Risk Level Prophylaxis Regimen 0-1 Low Early ambulation 2 Moderate Order ONE of the following: *Sequential Compression Device (SCD) *Heparin 5000 units SQ BID 3-4 Higher Order ONE of the following medications: *Heparin 5000 units SQ TID *Enoxaparin/Lovenox 40 mg SQ daily (WT < 150 kg, CrCl > 30 mL/min) *Enoxaparin/Lovenox 30 mg SQ daily (WT < 150 kg, CrCl > 10-29 mL/min) *Enoxaparin/Lovenox 30 mg SQ BID (WT < 150 kg, CrCl > 30 mL/min) AND/OR *Sequential Compression Device (SCD) 5 or more Highest Order ONE of the following medications: *Heparin 5000 units SQ TID (Preferred with Epidurals) *Enoxaparin/Lovenox 40 mg SQ daily (WT < 150 kg, CrCl > 30 mL/min) *Enoxaparin/Lovenox 30 mg SQ daily (WT < 150 kg, CrCl > 10-29 mL/min) *Enoxaparin/Lovenox 30 mg SQ BID (WT < 150 kg, CrCl > 30 mL/min) AND *Sequential Compression Device (SCD) (Kelly Victor MD, R1) Assessment and Plan Assessment and Plan Patient is a 61-year-old Male that presented to the ED due to AMS. Pt admitted for continual monitoring due to concern for withdrawal sxs and phenobarbital overdose. Pt admitted to ingesting cocaine and xanax. Pt has sirisha hx of ER visits for overdose. Afebrile, VS WNL, Code Status Full code Discussed Condition With Dr. Bell (Kelly Victor MD, R1) Attending Attestation THIS CASE WAS DISCUSSED WITH THE RESIDENT PHYSICIAN. I HAVE REVIEWED THE RECORD AND AGREE WITH THE ABOVE NOTE AND PLAN OF CARE WAS DISCUSSED. I HAVE AUTHORIZED THE ORDER FOR PLACEMENT IN OUT-PATIENT OBSERVATION STATUS. (Brooke Jones MD) Problem List: (1) Altered mental status ICD Codes: R41.82 - Altered mental status, unspecified Status: Acute Plan: Patient is a 61-year-old Male that presented to the ED due to AMS. Afebrile, VS WNL, -Drug screen positive for: barbiturates, phenobarbital level of 4.4, benzo, cocaine -c/w Narcan 0.4 mg IV push PRN and flumazenil 0.2mg IV push PRN -c/w IVF 128mls/hr -c/w neuro chks Q4h -Normal CXR -Pt placed on telemetry, CIWA protocol and rally pack -f/u acu chks, bmp, -EKG shown normal sinus rhythm, troponin level of 0.04 -continue to monitor vs, order placed to titrate O2 as need via NS for SpO2 < 92 -In the ED pt given: activated charcoal, narcan, -wdw day team (2) Black stool ICD Codes: K92.1 - Melena Plan: Pt reported black stools on ROS -no report of black stool from nurse thus far -will continue to monitor (3) Nutrition, metabolism, and development symptoms ICD Codes: R63.8 - Other symptoms and signs concerning food and fluid intake Plan: Fluids: Electrolyte: replete as needed Diet: pt did have a food to eat overnight but will resume NPO until cardiac workup is completed DVT ppx: SCIDS (Kelly Victor MD, R1) Problem Qualifiers (1) Altered mental status: Qualified Codes: R40.1 - Stupor Kelly Victor MD, R1 Dec 02, 2016 01:04 Brooke Jones MD Dec 02, 2016 13:10
[2016-12-02] MEDS: MULTIVITAMIN INJ 10 ML, FOLIC ACID INJ 1 MG in SODIUM CHLORID 0.9% 500 ML INJ 500 ML IV SCH ×2 (01:30→03:44)
[2016-12-02] MEDS ORDERED: LORazepam 1 MG TAB PO PRN (01:30)
[2016-12-02] MEDS ORDERED: SODIUM CHLORIDE 0.9% FLUSH 10 ML FLUSH IV FLUSH PRN (01:30)
[2016-12-02] MEDS ORDERED: LORazepam 2 MG TAB PO PRN (01:30)
[2016-12-02] MEDS ORDERED: LORazepam 2 MG/ML VIAL IV PUSH PRN ×4 (01:30)
[2016-12-02] MEDS ORDERED: FLUMAZENIL 0.5 MG/5 ML VIAL IV PUSH PRN (01:30)
[2016-12-02] MEDS ORDERED: THIAMINE INJ 100 MG in SODIUM CHLORIDE 0.9% INJ 100 ML IV SCH (01:30)
[2016-12-02] MEDS ORDERED: NALOXONE HCL 0.4 MG/ML AMP IV PUSH PRN ×2 (01:30)
[2016-12-02] MEDS: SODIUM CHLOR 0.9% 1000 ML INJ 1,000 ML IV SCH ×2 (02:22→16:55)
[2016-12-02] MEDS: SODIUM CHLORIDE 0.9% FLUSH 10 ML FLUSH IV FLUSH SCH ×2 (02:22→09:00)
[2016-12-02 11:30] LABS: BICARBONATE 24.7 MEQ/L (21.0-32.0); POTASSIUM 4.5 MEQ/L (3.5-5.1)
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
--- NOTE | 2016-12-03 07:30 | EKG ---
Date Performed: 12/01/2016 Time Performed: 16:09:05 PTAGE: 61 years EKG: Sinus rhythm REPOLARIZATION ABNORMALITIES ABNORMAL ECG PREVIOUS TRACING : 10/26/2016 09.05 DOCTOR: Conrado Ervin Interpretating Date/Time 12/03/2016 07:29:01
[2016-12-05] MEDS ORDERED: THIAMINE HCL 100 MG TAB PO SCH (09:00)
== END 2016-12-02 19:10 | disposition home or self-care (01) ==
LOC: NEPC 15:34 → NEDA 20:36 → NEPGCP 21:29
PROVIDERS: ADMIT Family Medicine; ATTEND Family Medicine
DX: R41.82 Altered mental status, unspecified (principal); F14.10 Cocaine abuse, uncomplicated; F19.20 Other psychoactive substance dependence, uncomplicated; I10 Essential (primary) hypertension; R94.31 Abnormal electrocardiogram [ECG] [EKG]; E11.9 Type 2 diabetes mellitus without complications; G47.30 Sleep apnea, unspecified; E78.00 Pure hypercholesterolemia, unspecified; K21.9 Gastro-esophageal reflux disease without esophagitis; Z72.0 Tobacco use
CPT/HCPCS: 71010; 80048; 80184; 80307; 82948; 84484; 85025; 93005; 96361; 96365; 96366; 96367; 96375; 99285; G0378; J3411; J7030; J7040; J2310

== ENCOUNTER 2016-12-13 00:09 | Emergency (ER) | payer OTHER ==
[~2016-12-13] VITALS: Ht 172.7 cm; Wt 84.0 kg
[~2016-12-13 00:09] MED LIST changes: -ASPI81TA11 PO; +ASPI81TA23 PO; -GNP100TA3 PO; -OMEP20TA PO; +OMEP20TA93 PO; +THIA100 PO
[2016-12-13 00:15] VITALS: BP 178/87; PULSE 77; RESP 18; O2SAT 97
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
[2016-12-13 01:09] LABS: AUTOMATED NEUTROPHIL # 5.2 TH/MM3 (1.8-7.7); BASOPHIL # 0.1 TH/MM3 (0-0.2); EOSINOPHIL # 0.1 TH/MM3 (0-0.4); HEMATOCRIT 43.9 % (39.0-51.0); HEMO FLAGS DIFF FINAL; LYMPH % 33.2 % (9.0-44.0); LYMPHOCYTE # 3.1 TH/MM3 (1.0-4.8); MEAN CORPUSCULAR HEMOGLOBIN 29.1 PG (27.0-34.0); MEAN CORPUSCULAR HGB CONC 33.9 % (32.0-36.0); MONO % 8.6 % (0.0-8.0); NEUT % 56.2 % (16.0-70.0); PLATELET COUNT 235 TH/MM3 (150-450); RED CELL DISTRIBUTION WIDTH 13.4 % (11.6-17.2); WHITE BLOOD COUNT 9.4 TH/MM3 (4.0-11.0)
[2016-12-13 01:25] LABS: BICARBONATE 25.6 MEQ/L (21.0-32.0); POTASSIUM 3.4 MEQ/L (3.5-5.1)
[2016-12-13 01:26] LABS: INTERNATIONAL NORMALIZED RATIO 1.1 RATIO; PROTHROMBIN TIME - PATIENT 12.1 SEC (9.8-11.6)
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
[2016-12-13 06:11] VITALS: BP 176/97; PULSE 98; RESP 16; O2SAT 98
[2016-12-13] MEDS ORDERED: TETANUS/DIPHTHERIA TOXOID ADULT 0.5 ML VIAL IM ONE (06:45)
[2016-12-13] MEDS ORDERED: TYLE325T PO (06:45)
== END 2016-12-13 07:16 | disposition home or self-care (01) ==
LOC: NEPE 00:09
DX: S09.90XA Unspecified injury of head, initial encounter (principal); F14.129 Cocaine abuse with intoxication, unspecified; F10.20 Alcohol dependence, uncomplicated; E78.00 Pure hypercholesterolemia, unspecified; E11.9 Type 2 diabetes mellitus without complications; I10 Essential (primary) hypertension; B19.20 Unspecified viral hepatitis C without hepatic coma; F17.210 Nicotine dependence, cigarettes, uncomplicated; Y09 Assault by unspecified means; Z79.82 Long term (current) use of aspirin
CPT/HCPCS: 70450; 70486; 72125; 80048; 80307; 85025; 85610; 85730; 90471; 90714

== ENCOUNTER 2017-01-28 14:33 | Emergency (ER) | payer OTHER ==
[~2017-01-28] VITALS: Ht 172.7 cm; Wt 84.0 kg
[2017-01-28 14:40] VITALS: BP 152/81; PULSE 90; RESP 14; TEMP 97.8; O2SAT 98
--- NOTE | 2017-01-28 15:15 | PD ---
HPI Chief Complaint: Alcohol/Drug Intoxication Time Seen by Provider: 15:15 Travel History International Travel<30 days: No Contact w/Intl Traveler<30days: No Traveled to known affect area: No History of Present Illness HPI 61-year-old male with history of alcohol and cocaine dependency [place]. Patient was planning to go to [place] for detox but was sent here because allegedly he is "too unstable to travel." Patient has been having suicidal thoughts. He states he does not use drugs anymore but last use last evening. Denies any active plan. Denies any chest or tightness. No difficult breathing. He has no other medical needs at this time. PFSH Past Medical History Hx Anticoagulant Therapy: Yes (ASPIRIN) Asthma: No Blood Disorders: No Anxiety: Yes Depression: Yes Heart Rhythm Problems: No Cancer: No Cardiovascular Problems: Yes (HTN) High Cholesterol: Yes Chest Pain: Yes Congestive Heart Failure: No COPD: No Diabetes: Yes Diminished Hearing: No Endocrine: Yes Gastrointestinal Disorders: Yes GERD: Yes Genitourinary: No Hepatitis: Yes (C) Hypertension: Yes Immune Disorder: No Implanted Vascular Access Dvce: No Musculoskeletal: No Neurologic: No Psychiatric: Yes Reproductive: No Respiratory: No Immunizations Current: Yes Sleep Apnea: Yes (CPAP) Past Surgical History Abdominal Surgery: No Cardiac Surgery: No Endocrine Surgery: No Eye Surgery: Yes (RETINA SOCKET REPAIR) Genitourinary Surgery: No Gynecologic Surgery: No Thoracic Surgery: No Other Surgery: Yes (RIGHT HAND, RIGHT EYE) Social History Alcohol Use: Yes (beer daily 8 pkg) Tobacco Use: Yes (1 PPD) Substance Use: Yes (cocaine) Allergies-Medications (Allergen,Severity, Reaction): Coded Allergies: lisinopril (Unverified Allergy, Unknown, 01/28/17) Reported Meds & Prescriptions Reported Meds & Active Scripts Active Tylenol (Acetaminophen) 325 Mg Tab 650 Mg PO Q6H PRN 5 Days Tylenol (Acetaminophen) 325 Mg Tab 650 Mg PO Q6H PRN Walker with Front Wheels (Device) 1 Mis Mis 1 Ea .ROUTE DIRECTED Gnp Vitamin B-1 (Thiamine HCl) 100 Mg Tab 100 Mg PO DAILY Omeprazole 20 Mg Tab 20 Mg PO DAILY Aspirin EC (Aspirin) 81 Mg Tabdr 81 Mg PO DAILY Reported Gabapentin 600 Mg Tab 600 Mg PO BID Bupropion HCl 75 Mg Tab 150 Mg PO BID Hydrochlorothiazide 12.5 Mg Cap 12.5 Mg PO DAILY Ventolin Hfa 18 GM Inh (Albuterol Sulfate) 90 Mcg/Act Aer 2 Puff INH Q6H PRN Novolin 70-30 Inj (Insulin Human Isoph/Insulin Regular) 1,000 Unit/10 Ml Vial 50 Units SQ BID Methocarbamol 750 Mg Tab 750 Mg PO HS Review of Systems Except as stated in HPI: all other systems reviewed are Neg Physical Exam Narrative GENERAL: Well-nourished male patient, lying in bed, with jerking head movements , consistent with cocaine addiction, but in no acute distress. SKIN: Focused skin assessment warm/dry. HEAD: Atraumatic. Normocephalic. EYES: Pupils equal and round. No scleral icterus. No injection or drainage. ENT: No nasal bleeding or discharge. Mucous membranes pink and moist. NECK: Trachea midline. No JVD. CARDIOVASCULAR: Elevated rate and rhythm. No murmur appreciated. RESPIRATORY: No accessory muscle use. Clear to auscultation. Breath sounds equal bilaterally. GASTROINTESTINAL: Abdomen soft, non-tender, nondistended. Hepatic and splenic margins not palpable. MUSCULOSKELETAL: No obvious deformities. No clubbing. No cyanosis. No edema. NEUROLOGICAL: Awake and alert. No obvious cranial nerve deficits. Motor grossly within normal limits. Normal speech. Data Data Last Documented VS Vital Signs Date Time Temp Pulse Resp B/P (MAP) Pulse Ox O2 Delivery O2 Flow Rate FiO2 01/28/17 14:40 97.8 90 14 152/81 (104) 98 Orders Orders Complete Blood Count With Diff (01/28/17 15:20) Basic Metabolic Panel (Bmp) (01/28/17 15:20) Drug Screen, Random Urine (01/28/17 15:20) Alcohol (Ethanol) (01/28/17 15:20) Psych Screen (01/28/17 15:31) MDM Medical Decision Making Medical Screen Exam Complete: Yes Emergency Medical Condition: Yes Medical Record Reviewed: Yes Differential Diagnosis Polysubstance abuse versus mood disorder versus personality disorder versus adjustment reaction disorder Narrative Course 61-year-old male presents to the emergency department for evaluation. Patient had been planning to go to detox, however he was discussing suicidal thoughts with his physician Dr. [place] the [place]. I do not see a [place] act, however the patient is accompanied with records. At this time I would consider have voluntary as he is wanting help area and lab work is ordered. Pending no acute abnormality, patient is medically cleared to undergo psychiatric screening for further evaluation and disposition. Mental health screening discussed with the patient. Psychiatric screen ordered. Diagnosis Primary Impression: Substance induced mood disorder Condition: Stable Clarisa Alva Jan 28, 2017 15:15
[2017-01-28 16:11] LABS: AUTOMATED NEUTROPHIL # 8.1 TH/MM3 (1.8-7.7); BASOPHIL # 0.1 TH/MM3 (0-0.2); BASOPHIL % 0.8 % (0.0-2.0); EOSINOPHIL # 0.2 TH/MM3 (0-0.4); EOSINOPHIL % 1.5 % (0.0-4.0); HEMATOCRIT 42.2 % (39.0-51.0); HEMOGLOBIN 14.3 GM/DL (13.0-17.0); LYMPH % 21.4 % (9.0-44.0); LYMPHOCYTE # 2.7 TH/MM3 (1.0-4.8); MEAN CELL VOLUME 86.2 FL (80.0-100.0); MEAN CORPUSCULAR HEMOGLOBIN 29.3 PG (27.0-34.0); MEAN PLATELET VOLUME 7.4 FL (7.0-11.0); MONO % 11.7 % (0.0-8.0); MONOCYTE # 1.5 TH/MM3 (0-0.9); NEUT % 64.6 % (16.0-70.0); PLATELET COUNT 270 TH/MM3 (150-450); RED BLOOD COUNT 4.89 MIL/MM3 (4.50-5.90); RED CELL DISTRIBUTION WIDTH 13.5 % (11.6-17.2); WHITE BLOOD COUNT 12.5 TH/MM3 (4.0-11.0)
[2017-01-28 16:28] LABS: BICARBONATE 24.9 MEQ/L (21.0-32.0); BLOOD UREA NITROGEN 8 MG/DL (7-18); CALCIUM 8.2 MG/DL (8.5-10.1); CHLORIDE 105 MEQ/L (98-107); CREATININE 1.01 MG/DL (0.60-1.30); GLOMERULAR FILTRATION RATE 91 ML/MIN (>89); GLUCOSE,RANDOM 162 MG/DL (74-106); SODIUM (NA) 137 MEQ/L (136-145)
[2017-01-28] MEDS ORDERED: ONDANSETRON ODT 4 MG TAB PO PRN (17:00)
[2017-01-28] MEDS ORDERED: FLUMAZENIL 0.5 MG/5 ML VIAL IV PUSH PRN (17:00)
[2017-01-28] MEDS ORDERED: LORazepam 2 MG TAB PO PRN (17:00)
[2017-01-28] MEDS ORDERED: LORazepam 1 MG TAB PO PRN (17:00)
[2017-01-28] MEDS ORDERED: IBUPROFEN 600 MG TAB PO PRN (17:00)
[2017-01-28] MEDS ORDERED: LORazepam 2 MG/ML VIAL IV PUSH PRN ×4 (17:00)
[2017-01-28 19:51] VITALS: BP 142/92; PULSE 91; RESP 20; TEMP 98.6; O2SAT 99
[2017-01-28 23:30] VITALS: BP 142/67; PULSE 89; RESP 17; TEMP 98.3; O2SAT 98
[2017-01-29 02:41] VITALS: BP 141/79; PULSE 77; RESP 17; TEMP 98.4; O2SAT 99
[2017-01-29 06:29] VITALS: BP 167/80; PULSE 85; RESP 16; TEMP 97.6; O2SAT 99
[2017-01-29] MEDS ORDERED: buPROPion HCL 75 MG TAB PO ONE (08:30)
[2017-01-29] MEDS ORDERED: HYDROCHLOROTHIAZIDE 12.5 MG CAP PO ONE (08:30)
[2017-01-29] MEDS ORDERED: ASPIRIN 81 MG CHEW TAB CHEW ONE (08:30)
[2017-01-29] MEDS ORDERED: INSULIN ASPAR PROT 70/30 1,000 UNITS/10 ML VIAL SQ ONE (08:30)
[2017-01-29] MEDS ORDERED: GABAPENTIN 100 MG CAP PO ONE (08:30)
[2017-01-29] MEDS ORDERED: PANTOPRAZOLE SOD 20 MG DELAYED RELEASE TAB PO ONE (08:30)
[2017-01-29] MEDS ORDERED: ACETAMINOPHEN 325 MG TAB PO ONE (09:45)
--- NOTE | 2017-01-29 11:46 | PD ---
History of Present Illness Chief Complaint: Alcohol/Drug Intoxication Time Seen by Provider: 09:00 Travel History International Travel<30 Days: No Contact w/Intl Traveler<30days: No Known affected area: No Legal Status Legal Status: Voluntary History of Present Illness: Patient presents voluntarily with request for substance abuse treatment. He admits to a cocaine problem. He denies suicidal or homicidal ideation, plan or intent at this time. He is aware that [facility] is [facility] and he wants to go to [place] for treatment at the [facility]. He demonstrates no cognitive impairments, no psychotic symptoms, and is verbally terence for safety. He is competent to do so. He is requesting transportation assistance to [place] and his request was relayed to nurse Lorri. COUNTS INCLUDE 234 BEDS AT THE [facility] Past Medical History Hx Anticoagulant Therapy: Yes (ASPIRIN) Asthma: No Blood Disorders: No Anxiety: Yes Depression: Yes Heart Rhythm Problems: No Cancer: No Cardiovascular Problems: Yes High Cholesterol: Yes Chest Pain: Yes Congestive Heart Failure: No COPD: No Diabetes: Yes Patient Takes Glucophage: No Diminished Hearing: No Endocrine: Yes Gastrointestinal Disorders: Yes GERD: Yes Genitourinary: No Hepatitis: Yes (C) Hypertension: Yes Immune Disorder: No Implanted Vascular Access Dvce: No Musculoskeletal: No Neurologic: No Psychiatric: Yes Reproductive: No Respiratory: No Immunizations Current: Yes Sleep Apnea: Yes (CPAP) Past Surgical History Abdominal Surgery: No Cardiac Surgery: No Endocrine Surgery: No Eye Surgery: Yes (RETINA SOCKET REPAIR) Genitourinary Surgery: No Gynecologic Surgery: No Thoracic Surgery: No Other Surgery: Yes (RIGHT HAND, RIGHT EYE) Psychiatric History Psychiatric History Hx Psychiatric Treatment: frequent visits for suicidal thoughts 6 in October 2016. History of Inpatient Treatment: No Guns or firearms in home: No Social History Hx Alcohol Use: Yes Hx Tobacco Use: Yes Hx Substance Use: Yes (cocaine) Substance Use Type: Alcohol, Crack, Nicotine/Cigarettes, Cocaine Hx of Substance Use Treatment: Yes Allergies-Medications (Allergen,Severity, Reaction): Coded Allergies: lisinopril (Unverified Allergy, Unknown, 01/28/17) Reported Meds & Prescriptions Reported Meds & Active Scripts Active Tylenol (Acetaminophen) 325 Mg Tab 650 Mg PO Q6H PRN 5 Days Walker with Front Wheels (Device) 1 Mis Mis 1 Ea .ROUTE DIRECTED Gnp Vitamin B-1 (Thiamine HCl) 100 Mg Tab 100 Mg PO DAILY Omeprazole 20 Mg Tab 20 Mg PO DAILY Aspirin EC (Aspirin) 81 Mg Tabdr 81 Mg PO DAILY Reported Gabapentin 600 Mg Tab 600 Mg PO BID Bupropion HCl 75 Mg Tab 150 Mg PO BID Hydrochlorothiazide 12.5 Mg Cap 12.5 Mg PO DAILY Ventolin Hfa 18 GM Inh (Albuterol Sulfate) 90 Mcg/Act Aer 2 Puff INH Q6H PRN Novolin 70-30 Inj (Insulin Human Isoph/Insulin Regular) 1,000 Unit/10 Ml Vial 50 Units SQ BID Methocarbamol 750 Mg Tab 750 Mg PO HS Review of Systems Psychiatric: COMPLAINS OF: Anxiety, Depression Except as stated in HPI: all other systems reviewed are Neg Mental Status Examination Appearance: Appropriate Consciousness: Alert Orientation: x4 Motor Activity: Normal gait Speech: Unremarkable Language: Adequate Fund of Knowledge: Adequate Attention and Concentration: Adequate Memory: Unremarkable Mood: Anxious Affect: Irritable Thought Process & Associations: Intact Thought Content: Appropriate Hallucination Type: None Delusion Type: None Suicidal Ideation: No Suicidal Plan: No Suicidal Intention: No Homicidal Ideation: No Homicidal Plan: No Homicidal Intention: No Insight: Adequate Judgment: Adequate MDM Medical Decision Making Medical Record Reviewed: Yes Assessment/Plan Patient interviewed at bedside. Medical record reviewed. Case discussed with nurse Yanni. Patient is no longer expressing suicidal ideation. He is verbally terence for safety and he is competent to do so. He does have a self-acknowledged substance abuse problem and wants treatment for that. He does not meet criteria for [place] act or involuntary psychiatric hospitalization. His toxicology screen is positive for cocaine. Orders Orders Complete Blood Count With Diff (01/28/17 15:20) Basic Metabolic Panel (Bmp) (01/28/17 15:20) Drug Screen, Random Urine (01/28/17 15:20) Alcohol (Ethanol) (01/28/17 15:20) Psych Screen (01/28/17 15:31) Diet Heart Healthy (01/28/17 Dinner) Alcohol Withdrawal Asmt-Ciwa ONCE (01/28/17 16:49) Ondansetron Odt (Zofran Odt) (01/28/17 17:00) Ibuprofen (Motrin) (01/28/17 17:00) Flumazenil Inj (Romazicon Inj) (01/28/17 17:00) Lorazepam (Ativan) (01/28/17 17:00) Lorazepam Inj (Ativan Inj) (01/28/17 17:00) Lorazepam (Ativan) (01/28/17 17:00) Lorazepam Inj (Ativan Inj) (01/28/17 17:00) Lorazepam Inj (Ativan Inj) (01/28/17 17:00) Lorazepam Inj (Ativan Inj) (01/28/17 17:00) Diet Diabetic (01/29/17 Breakfast) Aspirin Chew (Aspirin Chew) (01/29/17 08:30) Bupropion (Wellbutrin) (01/29/17 08:30) Gabapentin (Neurontin) (01/29/17 08:30) Hydrochlorothiazide (Microzide) (01/29/17 08:30) Insulin Aspar Prot 70/30 Inj (Novolog Mi (01/29/17 08:30) Pantoprazole (Protonix) (01/29/17 08:30) Ed Discharge Order (01/29/17 09:21) Acetaminophen (Tylenol) (01/29/17 09:45) Results Vital Signs Date Time Temp Pulse Resp B/P (MAP) Pulse Ox O2 Delivery O2 Flow Rate FiO2 01/29/17 09:57 01/29/17 06:29 97.6 85 16 167/80 (109) 99 Room Air 01/29/17 02:41 98.4 77 17 141/79 (99) 99 Room Air 01/28/17 23:30 98.3 89 17 142/67 (92) 98 Room Air 01/28/17 19:51 98.6 91 20 142/92 (109) 99 Room Air 01/28/17 14:40 97.8 90 14 152/81 (104) 98 Laboratory Tests Test 01/28/17 13:45 01/28/17 13:55 Urine Opiates Screen NEG Urine Barbiturates Screen NEG Urine Amphetamines Screen NEG Urine Benzodiazepines Screen NEG Urine Cocaine Screen POS Urine Cannabinoids Screen NEG White Blood Count 12.5 Red Blood Count 4.89 Hemoglobin 14.3 Hematocrit 42.2 Mean Corpuscular Volume 86.2 Mean Corpuscular Hemoglobin 29.3 Mean Corpuscular Hemoglobin Concent 34.0 Red Cell Distribution Width 13.5 Platelet Count 270 Mean Platelet Volume 7.4 Neutrophils (%) (Auto) 64.6 Lymphocytes (%) (Auto) 21.4 Monocytes (%) (Auto) 11.7 Eosinophils (%) (Auto) 1.5 Basophils (%) (Auto) 0.8 Neutrophils # (Auto) 8.1 Lymphocytes # (Auto) 2.7 Monocytes # (Auto) 1.5 Eosinophils # (Auto) 0.2 Basophils # (Auto) 0.1 CBC Comment DIFF FINAL Differential Comment Blood Urea Nitrogen 8 Creatinine 1.01 Random Glucose 162 Calcium Level 8.2 Sodium Level 137 Potassium Level 3.9 Chloride Level 105 Carbon Dioxide Level 24.9 Anion Gap 7 Estimat Glomerular Filtration Rate 91 Ethyl Alcohol Level LESS THAN 3 Diagnosis Primary Impression: Cocaine abuse Departure Forms: Tests/Procedures Patient Instructions: General Instructions, Polysubstance Abuse (ED) Disposition: 01 DISCHARGE HOME Condition: Stable Ki Conte MD Jan 29, 2017 11:46
== END 2017-01-29 10:13 | disposition home or self-care (01) ==
LOC: NEPD 14:33 → NEPJ 01-29 10:13
DX: F14.10 Cocaine abuse, uncomplicated (principal); I10 Essential (primary) hypertension; E78.00 Pure hypercholesterolemia, unspecified; E11.9 Type 2 diabetes mellitus without complications; K21.9 Gastro-esophageal reflux disease without esophagitis; F17.200 Nicotine dependence, unspecified, uncomplicated; Z79.4 Long term (current) use of insulin; Z86.19 Personal history of other infectious and parasitic diseases; Z79.899 Other long term (current) drug therapy
CPT/HCPCS: 80048; 80307; 85025; 96372; 99284; J1815

== ENCOUNTER 2017-02-03 11:40 | Emergency (ER) | payer OTHER ==
[~2017-02-03] VITALS: Ht 172.7 cm; Wt 78.0 kg
[2017-02-03 11:48] VITALS: BP 154/78; PULSE 94; RESP 18; TEMP 98; O2SAT 100
[2017-02-03 12:32] LABS: BICARBONATE 23.2 MEQ/L (21.0-32.0); CALCIUM 8.6 MG/DL (8.5-10.1); CREATININE 0.91 MG/DL (0.60-1.30)
[2017-02-03 12:38] LABS: AUTOMATED NEUTROPHIL # 6.3 TH/MM3 (1.8-7.7); BASOPHIL # 0.1 TH/MM3 (0-0.2); BASOPHIL % 1.1 % (0.0-2.0); EOSINOPHIL # 0.1 TH/MM3 (0-0.4); EOSINOPHIL % 0.9 % (0.0-4.0); HEMATOCRIT 43.8 % (39.0-51.0); HEMOGLOBIN 15.2 GM/DL (13.0-17.0); LYMPH % 28.4 % (9.0-44.0); LYMPHOCYTE # 3.1 TH/MM3 (1.0-4.8); MEAN CELL VOLUME 85.4 FL (80.0-100.0); MEAN CORPUSCULAR HEMOGLOBIN 29.7 PG (27.0-34.0); MEAN CORPUSCULAR HGB CONC 34.8 % (32.0-36.0); MEAN PLATELET VOLUME 7.1 FL (7.0-11.0); MONO % 11.2 % (0.0-8.0); MONOCYTE # 1.2 TH/MM3 (0-0.9); NEUT % 58.4 % (16.0-70.0); PLATELET COUNT 345 TH/MM3 (150-450); RED BLOOD COUNT 5.13 MIL/MM3 (4.50-5.90); RED CELL DISTRIBUTION WIDTH 13.4 % (11.6-17.2); WHITE BLOOD COUNT 10.8 TH/MM3 (4.0-11.0)
--- NOTE | 2017-02-03 13:05 | PD ---
HPI Chief Complaint: Chest Pain Time Seen by Provider: 11:47 Travel History International Travel<30 days: No Contact w/Intl Traveler<30days: No Traveled to known affect area: No History of Present Illness HPI This patient was arrested on a charge of having open container. After he got arrested he started complaining of having pain all over. He was brought to the ER for medical clearance before going to [place] [facility]. Patient complains of pain everywhere. He does not specifically mention chest pain. He is challenging to obtain history from. He was on. He is unfocused and fidgety and doesn't cooperate with exam. Impossible to get a proper history or review of systems on this man. PFSH Past Medical History Hx Anticoagulant Therapy: Yes (ASPIRIN) Asthma: No Blood Disorders: No Anxiety: Yes Depression: Yes Heart Rhythm Problems: No Cancer: No Cardiovascular Problems: Yes High Cholesterol: Yes Chest Pain: Yes Congestive Heart Failure: No COPD: No Diabetes: Yes Patient Takes Glucophage: No Diminished Hearing: No Endocrine: Yes Gastrointestinal Disorders: Yes GERD: Yes Genitourinary: No Hepatitis: Yes (C) Hypertension: Yes Immune Disorder: No Implanted Vascular Access Dvce: No Musculoskeletal: No Neurologic: No Psychiatric: Yes Reproductive: No Respiratory: No Immunizations Current: Yes Sleep Apnea: Yes (CPAP) Tetanus Vaccination: < 5 Years Influenza Vaccination: Yes Past Surgical History Abdominal Surgery: No Cardiac Surgery: No Endocrine Surgery: No Eye Surgery: Yes (RETINA SOCKET REPAIR) Genitourinary Surgery: No Gynecologic Surgery: No Thoracic Surgery: No Other Surgery: Yes (RIGHT HAND, RIGHT EYE) Social History Alcohol Use: Yes Tobacco Use: Yes Substance Use: Yes (cocaine) Allergies-Medications (Allergen,Severity, Reaction): Coded Allergies: lisinopril (Verified Adverse Reaction, Intermediate, COUGH, 02/03/17) Reported Meds & Prescriptions Reported Meds & Active Scripts Active Gnp Vitamin B-1 (Thiamine HCl) 100 Mg Tab 100 Mg PO DAILY Omeprazole 20 Mg Tab 20 Mg PO DAILY Aspirin EC (Aspirin) 81 Mg Tabdr 81 Mg PO DAILY Reported Gabapentin 600 Mg Tab 600 Mg PO BID Bupropion HCl 75 Mg Tab 150 Mg PO BID Hydrochlorothiazide 12.5 Mg Cap 12.5 Mg PO DAILY Ventolin Hfa 18 GM Inh (Albuterol Sulfate) 90 Mcg/Act Aer 2 Puff INH Q6H PRN Novolin 70-30 Inj (Insulin Human Isoph/Insulin Regular) 1,000 Unit/10 Ml Vial 50 Units SQ BID Methocarbamol 750 Mg Tab 750 Mg PO HS Review of Systems ROS Limitations: Clinical Condition, Intoxication, Uncooperative, Poor Historian Physical Exam Narrative GENERAL: Disheveled and uncooperative well-developed patient in no apparent distress. SKIN: Focused skin assessment reveals no rash and nodules. Skin is Warm and dry. HEAD: Atraumatic. Normocephalic. EYES: Pupils equal and round. No scleral icterus. No injection or drainage. ENT: No nasal bleeding or discharge. Mucous membranes pink and moist. NECK: Trachea midline. No JVD. CARDIOVASCULAR: Regular rate and rhythm. No murmur appreciated. RESPIRATORY: No accessory muscle use. Clear to auscultation. Breath sounds equal bilaterally. GASTROINTESTINAL: Abdomen soft, non-tender, nondistended. Hepatic and splenic margins not palpable. MUSCULOSKELETAL: No obvious deformities. No clubbing. No cyanosis. No edema. NEUROLOGICAL: Awake and alert. No obvious cranial nerve deficits. Motor grossly within normal limits. Normal speech. PSYCHIATRIC: Appropriate mood and affect but in truth difficult to assess; insight and judgment poor . Data Data Last Documented VS Vital Signs Date Time Temp Pulse Resp B/P (MAP) Pulse Ox O2 Delivery O2 Flow Rate FiO2 02/03/17 11:50 89 18 100 Room Air 02/03/17 11:48 98.0 154/78 (103) Orders Orders Electrocardiogram (02/03/17 ) Iv Access Insert/Monitor (02/03/17 11:54) Electrocardiogram (02/03/17 ) Alcohol (Ethanol) (02/03/17 11:54) Complete Blood Count With Diff (02/03/17 11:54) Basic Metabolic Panel (Bmp) (02/03/17 11:54) Labs Laboratory Tests Test 02/03/17 11:50 02/03/17 12:10 Blood Urea Nitrogen 6 MG/DL Creatinine 0.91 MG/DL Random Glucose 111 MG/DL Calcium Level 8.6 MG/DL Sodium Level 137 MEQ/L Potassium Level 4.3 MEQ/L Chloride Level 105 MEQ/L Carbon Dioxide Level 23.2 MEQ/L Anion Gap 9 MEQ/L Estimat Glomerular Filtration Rate 103 ML/MIN Ethyl Alcohol Level 91 MG/DL White Blood Count 10.8 TH/MM3 Red Blood Count 5.13 MIL/MM3 Hemoglobin 15.2 GM/DL Hematocrit 43.8 % Mean Corpuscular Volume 85.4 FL Mean Corpuscular Hemoglobin 29.7 PG Mean Corpuscular Hemoglobin Concent 34.8 % Red Cell Distribution Width 13.4 % Platelet Count 345 TH/MM3 Mean Platelet Volume 7.1 FL Neutrophils (%) (Auto) 58.4 % Lymphocytes (%) (Auto) 28.4 % Monocytes (%) (Auto) 11.2 % Eosinophils (%) (Auto) 0.9 % Basophils (%) (Auto) 1.1 % Neutrophils # (Auto) 6.3 TH/MM3 Lymphocytes # (Auto) 3.1 TH/MM3 Monocytes # (Auto) 1.2 TH/MM3 Eosinophils # (Auto) 0.1 TH/MM3 Basophils # (Auto) 0.1 TH/MM3 CBC Comment DIFF FINAL Differential Comment MDM Medical Decision Making Medical Screen Exam Complete: Yes Emergency Medical Condition: Yes Medical Record Reviewed: Yes Differential Diagnosis Intoxication, polysubstance abuse, malingering Narrative Course I have reviewed the patient's electronic medical record. Patient is a frequent visitor to the ER. This is his 20th visit of this year alone He is frequently intoxicated with cocaine IV placed Alcohol level is 91 CBC and metabolic profiles are normal His vital signs are normal The best EKG we could obtain was reviewed by myself. There is no acute ST elevation on the parts I see Patient is a stable as can be made and we will at least take him to [place] [facility] Diagnosis Primary Impression: Alcohol intoxication Qualified Codes: F10.929 - Alcohol use, unspecified with intoxication, unspecified Additional Impressions: Polysubstance abuse Malingering Additional Instructions: The patient was advised to follow up with their physician and return if they worsen. Stop your Polysubstance abuse Med/Other Pt SpecificInfo: Other Disposition: [address] LAW ENFORCEMNT Condition: Stable Deyvi Urias MD Feb 03, 2017 13:05
[2017-02-03 13:20] VITALS: BP 130/81; TEMP 97.8
--- NOTE | 2017-02-04 15:15 | EKG ---
Date Performed: 02/03/2017 Time Performed: 11:50:52 PTAGE: 61 years EKG: Sinus rhythm POSSIBLE LEFT ATRIAL ENLARGEMENT POSSIBLE RIGHT VENTRICULAR CONDUCTION DELAY NONSPECIFIC T-WAVE ABNO RMALITY BORDERLINE ECG PREVIOUS TRACING : 12/01/2016 16.09 DOCTOR: Anton Hernandez Interpretating Date/Time 02/04/2017 15:14:53
== END 2017-02-03 13:20 ==
LOC: NEPD 11:40
DX: F10.929 Alcohol use, unspecified with intoxication, unspecified (principal); F19.10 Other psychoactive substance abuse, uncomplicated; E11.9 Type 2 diabetes mellitus without complications; K21.9 Gastro-esophageal reflux disease without esophagitis; I10 Essential (primary) hypertension; Y90.4 Blood alcohol level of 80-99 mg/100 ml; Z72.0 Tobacco use; Z79.4 Long term (current) use of insulin; Z79.82 Long term (current) use of aspirin; Z79.899 Other long term (current) drug therapy; Z76.5 Malingerer [conscious simulation]
CPT/HCPCS: 80048; 80307; 85025; 93005; 99283

== ENCOUNTER 2017-03-02 19:17 | Emergency (ER) | payer OTHER | END 2017-03-03 06:30 | disposition home or self-care (01) | LOC: NEPD 03-03 06:30 | DX: F10.129 Alcohol abuse with intoxication, unspecified (principal); F14.10 Cocaine abuse, uncomplicated; E11.9 Type 2 diabetes mellitus without complications; Z72.0 Tobacco use; Z79.4 Long term (current) use of insulin | CPT/HCPCS: 99282 ==

== ENCOUNTER 2017-03-05 04:12 | Observation (INO) | payer OTHER ==
[2017-03-05] VITALS (7 sets, daily range): BP systolic 154–171; BP diastolic 70–97; PULSE 82–96; RESP 14–20; TEMP 98–99.2; O2SAT 94–100
[~2017-03-05] VITALS: Ht 177.8 cm; Wt 90.0 kg
[~2017-03-05 04:12] MED LIST changes: -TYLE325T PO; -WALKER WHEELS/F1 MIS
[2017-03-05] MEDS ORDERED: SODIUM CHLORIDE 0.9% FLUSH 10 ML FLUSH IV FLUSH PRN (04:30)
--- NOTE | 2017-03-05 04:52 | RADRPT ---
EXAM DATE/TIME: 03/05/2017 04:35 [facility] COMPARISON: CHEST SINGLE AP, December 01, 2016, 15:56. INDICATIONS : Syncopal episode today MEDICAL HISTORY : Hypertension. Diabetes mellitus type 2. Hepatitis C SURGICAL HISTORY : None. ENCOUNTER: Initial ACUITY: 1 day PAIN SCORE: Non-responsive. LOCATION: Bilateral chest FINDINGS: A single view of the chest demonstrates the lungs to be symmetrically aerated without evidence of mas s, infiltrate or effusion. No evidence of pneumothorax. The cardiomediastinal contours are unremark able. Osseous structures are intact. CONCLUSION: No infiltrates seen. Lemuel Millan MD on March 05, 2017 at 4:50 Board Certified Radiologist. This report was verified electronically.
[2017-03-05] MEDS ORDERED: LORazepam 2 MG/ML VIAL IV PUSH ONE (05:00)
[2017-03-05 05:06] LABS: AUTOMATED NEUTROPHIL # 3.2 TH/MM3 (1.8-7.7); BASOPHIL # 0.1 TH/MM3 (0-0.2); BASOPHIL % 0.9 % (0.0-2.0); EOSINOPHIL # 0.2 TH/MM3 (0-0.4); EOSINOPHIL % 2.9 % (0.0-4.0); HEMATOCRIT 41.5 % (39.0-51.0); LYMPH % 37.2 % (9.0-44.0); LYMPHOCYTE # 2.4 TH/MM3 (1.0-4.8); MEAN CELL VOLUME 85.3 FL (80.0-100.0); MEAN CORPUSCULAR HEMOGLOBIN 28.7 PG (27.0-34.0); MEAN CORPUSCULAR HGB CONC 33.7 % (32.0-36.0); MEAN PLATELET VOLUME 7.4 FL (7.0-11.0); MONO % 10.4 % (0.0-8.0); MONOCYTE # 0.7 TH/MM3 (0-0.9); NEUT % 48.6 % (16.0-70.0); PLATELET COUNT 266 TH/MM3 (150-450); RED BLOOD COUNT 4.86 MIL/MM3 (4.50-5.90); RED CELL DISTRIBUTION WIDTH 13.2 % (11.6-17.2); WHITE BLOOD COUNT 6.5 TH/MM3 (4.0-11.0)
[2017-03-05 05:14] LABS: INTERNATIONAL NORMALIZED RATIO 1.1 RATIO; PROTHROMBIN TIME - PATIENT 10.7 SEC (9.8-11.6)
[2017-03-05 05:18] LABS: LACTIC ACID SEPSIS PROTOCOL 2.1 mmol/L (0.4-2.0)
--- NOTE | 2017-03-05 05:23 | PD ---
HPI . Altered mental status Chief Complaint: Altered Mental Status Time Seen by Provider: 04:29 Travel History International Travel<30 days: No Contact w/Intl Traveler<30days: No Traveled to known affect area: No History of Present Illness HPI 61-year-old male brought in by EMS with police escort, found in a [employer] shop with psychotic behavior riding consistent with probable intoxication to unknown substance. Patient was well-known to police and EMS, patient has many prior arrests secondary to polysubstance abuse and aggravated assault, has known well 2 EMS for similar presentations. Patient is currently intoxicated, riding a stretcher, exhibiting psychotic behavior, is an unreliable historian [facility] Past Medical History Narrative Medical Past medical history reviewed Hx Anticoagulant Therapy: Yes (ASPIRIN) Asthma: No Blood Disorders: No Anxiety: Yes Depression: Yes Heart Rhythm Problems: No Cancer: No Cardiovascular Problems: Yes High Cholesterol: Yes Chest Pain: Yes Congestive Heart Failure: No COPD: No Diabetes: Yes Patient Takes Glucophage: No Diminished Hearing: No Endocrine: Yes Gastrointestinal Disorders: Yes GERD: Yes Genitourinary: No Hepatitis: Yes (C) Hypertension: Yes Immune Disorder: No Implanted Vascular Access Dvce: No Musculoskeletal: No Neurologic: No Psychiatric: Yes Reproductive: No Respiratory: No Immunizations Current: Yes Sleep Apnea: Yes (CPAP) Tetanus Vaccination: Unknown Past Surgical History Abdominal Surgery: No Cardiac Surgery: No Endocrine Surgery: No Eye Surgery: Yes (RETINA SOCKET REPAIR) Genitourinary Surgery: No Gynecologic Surgery: No Thoracic Surgery: No Other Surgery: Yes (RIGHT HAND, RIGHT EYE) Social History Alcohol Use: Yes Tobacco Use: Yes Substance Use: Yes (COCAINE, CRACK) Allergies-Medications (Allergen,Severity, Reaction): Coded Allergies: lisinopril (Verified Adverse Reaction, Intermediate, COUGH, 03/02/17) Reported Meds & Prescriptions Reported Meds & Active Scripts Active Gnp Vitamin B-1 (Thiamine HCl) 100 Mg Tab 100 Mg PO DAILY Omeprazole 20 Mg Tab 20 Mg PO DAILY Aspirin EC (Aspirin) 81 Mg Tabdr 81 Mg PO DAILY Reported Gabapentin 600 Mg Tab 600 Mg PO BID Bupropion HCl 75 Mg Tab 150 Mg PO BID Hydrochlorothiazide 12.5 Mg Cap 12.5 Mg PO DAILY Ventolin Hfa 18 GM Inh (Albuterol Sulfate) 90 Mcg/Act Aer 2 Puff INH Q6H PRN Novolin 70-30 Inj (Insulin Human Isoph/Insulin Regular) 1,000 Unit/10 Ml Vial 50 Units SQ BID Methocarbamol 750 Mg Tab 750 Mg PO HS Narrative Medication Allergies and medications reviewed Review of Systems ROS Limitations: Intoxication, Altered Mental Status, Uncooperative, Psychotic , Poor Historian Physical Exam Exam Limitations: Intoxication, Altered Mental Status, Poor Historian, Uncooperative Narrative GENERAL: Patient presents awake/arousable, exhibiting intermittent psychotic behavior with riding body movements consistent with intoxication SKIN: Warm and dry. HEAD: Atraumatic. Normocephalic. EYES: Pupils equal and round. No scleral icterus. No injection or drainage. ENT: No nasal bleeding or discharge. Mucous membranes pink and moist. NECK: Trachea midline. No JVD. Supple CARDIOVASCULAR: Regular rate and rhythm. RESPIRATORY: No accessory muscle use. Clear to auscultation. Breath sounds equal bilaterally. GASTROINTESTINAL: Abdomen soft, non-tender, nondistended. Hepatic and splenic margins not palpable. MUSCULOSKELETAL: Extremities without clubbing, cyanosis, or edema. No obvious deformities. NEUROLOGICAL: Awake and alert. No obvious unilateral deficits. Difficult exam secondary to patient's intoxication/altered mental status as noted above PSYCHIATRIC: Noncontributory strain, difficult exam secondary to patient's intoxication/altered mental status Data Data Last Documented VS Vital Signs Date Time Temp Pulse Resp B/P (MAP) Pulse Ox O2 Delivery O2 Flow Rate FiO2 03/05/17 04:21 98.0 96 18 156/77 (103) 98 Room Air Orders Orders Electrocardiogram (03/05/17 04:30) Ammonia (03/05/17 04:30) Complete Blood Count With Diff (03/05/17 04:30) Comprehensive Metabolic Panel (03/05/17 04:30) Creatine Kinase (Cpk) (03/05/17 04:30) Prothrombin Time / Inr (Pt) (03/05/17 04:30) Act Partial Throm Time (Ptt) (03/05/17 04:30) Troponin I (03/05/17 04:30) Thyroid Stimulating Hormone (03/05/17 04:30) Urinalysis - C+S If Indicated (03/05/17 04:30) Lactic Acid Sepsis Protocol (03/05/17 04:30) Chest, Single Ap (03/05/17 04:30) Blood Glucose (03/05/17 04:30) Ecg Monitoring (03/05/17 04:30) Iv Access Insert/Monitor (03/05/17 04:30) Oximetry (03/05/17 04:30) Sodium Chloride 0.9% Flush (Ns Flush) (03/05/17 04:30) Drug Screen, Random Urine (03/05/17 04:30) Alcohol (Ethanol) (03/05/17 04:30) Tylenol (Acetaminophen) (03/05/17 04:30) Salicylates (Aspirin) (03/05/17 04:30) Lorazepam Inj (Ativan Inj) (03/05/17 05:00) Labs Laboratory Tests Test 03/05/17 04:45 03/05/17 04:48 White Blood Count 6.5 TH/MM3 Red Blood Count 4.86 MIL/MM3 Hemoglobin 14.0 GM/DL Hematocrit 41.5 % Mean Corpuscular Volume 85.3 FL Mean Corpuscular Hemoglobin 28.7 PG Mean Corpuscular Hemoglobin Concent 33.7 % Red Cell Distribution Width 13.2 % Platelet Count 266 TH/MM3 Mean Platelet Volume 7.4 FL Neutrophils (%) (Auto) 48.6 % Lymphocytes (%) (Auto) 37.2 % Monocytes (%) (Auto) 10.4 % Eosinophils (%) (Auto) 2.9 % Basophils (%) (Auto) 0.9 % Neutrophils # (Auto) 3.2 TH/MM3 Lymphocytes # (Auto) 2.4 TH/MM3 Monocytes # (Auto) 0.7 TH/MM3 Eosinophils # (Auto) 0.2 TH/MM3 Basophils # (Auto) 0.1 TH/MM3 CBC Comment DIFF FINAL Differential Comment Prothrombin Time 10.7 SEC Prothromb Time International Ratio 1.1 RATIO Activated Partial Thromboplast Time 23.6 SEC Lactic Acid Level 2.1 mmol/L MDM Medical Decision Making Medical Screen Exam Complete: Yes Emergency Medical Condition: Yes Medical Record Reviewed: Yes Differential Diagnosis Altered mental status, polysubstance abuse, polysubstance intoxication Narrative Course awaiting laboratory examinations, care plan observation until clinical sobriety and psychiatric evaluation Diagnosis Primary Impression: Alcohol intoxication Additional Impressions: Cocaine abuse, unspecified Medical clearance for psychiatric admission Polysubstance dependence Substance induced mood disorder Brady Galindo MD Mar 05, 2017 05:23
[2017-03-05 05:43] LABS: ACETAMINOPHEN LESS THAN 2.0 MCG/ML (10.0-30.0); ALBUMIN 3.1 GM/DL (3.4-5.0); ALKALINE PHOSPHATASE 121 U/L (45-117); ALT (GPT) 26 U/L (12-78); AST (GOT) 36 U/L (15-37); BICARBONATE 24.2 MEQ/L (21.0-32.0); BLOOD UREA NITROGEN 6 MG/DL (7-18); CALCIUM 7.7 MG/DL (8.5-10.1); CHLORIDE 108 MEQ/L (98-107); CREATININE 0.93 MG/DL (0.60-1.30); GLOMERULAR FILTRATION RATE 100 ML/MIN (>89); GLUCOSE,RANDOM 222 MG/DL (74-106); SODIUM (NA) 141 MEQ/L (136-145); TOTAL BILIRUBIN ADULT 0.4 MG/DL (0.2-1.0); TOTAL PROTEIN 7.1 GM/DL (6.4-8.2); TROPONIN I 0.05 NG/ML (0.02-0.05)
--- NOTE | 2017-03-05 05:48 | RADRPT ---
EXAM DATE/TIME: 03/05/2017 05:30 [facility] COMPARISON: CT BRAIN W/O CONTRAST, December 13, 2016, 1:06. INDICATIONS : Altered mental status. RADIATION DOSE: 36.49 CTDIvol (mGy) MEDICAL HISTORY : Non-responsive. SURGICAL HISTORY : Non-responsive. ENCOUNTER: Initial ACUITY: 1 day PAIN SCALE: Non-responsive LOCATION: cranial TECHNIQUE: Multiple contiguous axial images were obtained of the head. Using automated exposure control and adj ustment of the mA and/or kV according to patient size, radiation dose was kept as low as reasonably a chievable to obtain optimal diagnostic quality images. DICOM format image data is available electro nically for review and comparison. FINDINGS: CEREBRUM: The ventricles are normal for age. No evidence of midline shift, mass lesion, hemorrhage or acute in farction. No extra-axial fluid collections are seen. POSTERIOR FOSSA: The cerebellum and brainstem are intact. The 4th ventricle is midline. The cerebellopontine angle i s unremarkable. EXTRACRANIAL: The visualized portion of the orbits is intact. SKULL: The calvaria is intact. No evidence of skull fracture. CONCLUSION: Negative noncontrast CT brain. Lemuel Millan MD on March 05, 2017 at 5:46 Board Certified Radiologist. This report was verified electronically.
--- NOTE | 2017-03-05 05:57 | RADRPT ---
EXAM DATE/TIME: 03/05/2017 05:34 [facility] COMPARISON: No previous studies available for comparison. INDICATIONS : Short of breath. RADIATION DOSE: 16.56 CTDIvol (mGy) MEDICAL HISTORY : Non-responsive. SURGICAL HISTORY : Non-responsive. ENCOUNTER: Initial ACUITY: 1 day PAIN SCALE: Non-responsive LOCATION: Bilateral chest TECHNIQUE: Volumetric scanning of the chest was performed. Using automated exposure control and adjustment of t he mA and/or kV according to patient size, radiation dose was kept as low as reasonably achievable to obtain optimal diagnostic quality images. DICOM format image data is available electronically for r eview and comparison. Follow-up recommendations for detected pulmonary nodules are based at a minimum on nodule size and pa tient risk factors according to Fleischner Society Guidelines. FINDINGS: LUNGS: No focal areas of consolidation or infiltrate. No evidence of pneumothorax. There are 2 small nonca lcified nodules in the right lung, both measuring 3 mm, seen on images #22 and #29. The left lung is clear. PLEURAE: There is no pleural thickening or pleural effusion. MEDIASTINUM: The heart and great vessels demonstrate no acute abnormality. There is no mediastinal or hilar lymph adenopathy. AXILLAE: Within normal limits. No lymphadenopathy. MUSCULOSKELETAL: Within normal limits for patient age. MISCELLANEOUS: The visualized upper abdominal organs demonstrate no acute abnormality. 2.7 cm round low density les ion upper pole right kidney, incompletely included in the [id number], probable cyst.. CONCLUSION: 1. No evidence of pneumothorax. 2. 2 noncalcified nodules in the right lung measuring 3 mm. In accordance with Fleischner Society gu idelines, recommend followup scan in 12 months. Lemuel Millan MD on March 05, 2017 at 5:51 Board Certified Radiologist. This report was verified electronically.
[2017-03-05 06:12] LABS: BILIRUBIN, URINE NEG (NEG); BLOOD, URINE NEG (NEG); GLUCOSE,URINE TRACE mg/dL (NEG); KETONE, URINE NEG (NEG); MUCUS URINE FEW /lpf (OCC); NITRITE,URINE NEG (NEG); PH, URINE 5.5 (5.0-8.5); URINE COLOR LIGHT-YELLOW (YELLW/STRAW); URINE LEUKOCYTE ESTERASE NEG (NEG)
[2017-03-05] MEDS ORDERED: SODIUM CHLOR 0.9% 1000 ML INJ 1,000 ML IV ONE (06:15)
[2017-03-05] MEDS ORDERED: LACTULOSE SYRUP 20 GM/30 ML CUP PO ONE (06:15)
[2017-03-05] MEDS ORDERED: MAGNESIUM HYDROXIDE SUSP 30 ML CUP PO PRN (07:45)
[2017-03-05] MEDS ORDERED: SENNOSIDES 8.6 MG TAB PO PRN (07:45)
[2017-03-05] MEDS ORDERED: ONDANSETRON HCL 4 MG/2 ML VIAL IVP PRN (07:45)
[2017-03-05] MEDS ORDERED: NALOXONE HCL 0.4 MG/ML AMP IV PUSH PRN (07:45)
[2017-03-05] MEDS ORDERED: LACTULOSE SYRUP 20 GM/30 ML CUP PO PRN (07:45)
[2017-03-05] MEDS ORDERED: BISACODYL 10 MG SUPP RECTAL PRN (07:45)
[2017-03-05] MEDS: DOCUSATE SODIUM 50 MG/SENNA 8.6 MG TAB PO SCH ×2 (09:00→21:40)
[2017-03-05] MEDS: HEPARIN SODIUM - SQ 10,000 UNITS/ML VIAL SQ SCH ×3 (09:11→23:55)
[2017-03-05] MEDS: SODIUM CHLOR 0.9% 1000 ML INJ 1,000 ML IV SCH ×2 (09:12→10:59)
--- NOTE | 2017-03-05 10:15 | HHI.HP ---
[facility] Service [facility] Primary Care Physician Unknown Admission Diagnosis Encephalopathy, intoxication Diagnoses: (1) Lactic acidosis (2) Hyperammonemia (3) Alcohol abuse (4) Substance induced mood disorder (5) Cocaine abuse, unspecified (6) Polysubstance dependence (7) Alcohol abuse with intoxication (8) Hypertension (9) Diabetes (10) Elevated creatine kinase level Chief Complaint: intoxication Travel History International Travel<30 Days: No Contact w/Intl Traveler <30 Da: No Traveled to Known Affected Are: No History of Present Illness The patient is a 61 year old male brought to the emergency department with police escort under [place] Act. He was found at [facility] exhibiting behavior consistent with intoxication. Patient admits to recent cocaine use and that he had 12 beers last night. He is still confused and provides little history. Review of Systems ROS Limitations: Intoxication, Altered Mental Status Constitutional: DENIES: Fever, Chills, Night Sweats Eyes: DENIES: Blurred vision, Vision loss Ears, nose, mouth, throat: DENIES: Hearing loss Respiratory: DENIES: Cough, Wheezing, Sputum production, Shortness of breath Cardiovascular: DENIES: Chest pain, Palpitations, Dyspnea on Exertion, Lower Extremity Edema Gastrointestinal: DENIES: Abdominal pain, Constipation, Diarrhea, Nausea, Vomiting Genitourinary: DENIES: Urinary frequency, Urinary incontinence, Urgency, Hematuria, Dysuria, Nocturia Musculoskeletal: DENIES: Joint pain, Muscle aches Integumentary: DENIES: Pruritus, Rash Hematologic/lymphatic: DENIES: Bruising Neurologic: DENIES: Headache Past Family Social History Past Medical History Diabetes Hepatitis C GERD Anxiety/depression Hyperlipidemia Hypertension Sleep apnea Past Surgical History Right eye surgery Right hand surgery Reported Medications Gnp Vitamin B-1 (Thiamine HCl) 100 Mg Tab 100 Mg PO DAILY Omeprazole 20 Mg Tab 20 Mg PO DAILY Aspirin EC (Aspirin) 81 Mg Tabdr 81 Mg PO DAILY Gabapentin 600 Mg Tab 600 Mg PO BID Bupropion HCl 75 Mg Tab 150 Mg PO BID Hydrochlorothiazide 12.5 Mg Cap 12.5 Mg PO DAILY Ventolin Hfa 18 GM Inh (Albuterol Sulfate) 90 Mcg/Act Aer 2 Puff INH Q6H PRN Novolin 70-30 Inj (Insulin Human Isoph/Insulin Regular) 1,000 Unit/10 Ml Vial 50 Units SQ BID Methocarbamol 750 Mg Tab 750 Mg PO HS Allergies: Coded Allergies: lisinopril (Verified Adverse Reaction, Intermediate, COUGH, 03/02/17) Family History Unobtainable. Social History Patient admits to cocaine and alcohol use. Physical Exam Vital Signs Vital Signs Date Time Temp Pulse Resp B/P (MAP) Pulse Ox O2 Delivery O2 Flow Rate FiO2 03/05/17 06:12 84 20 157/70 (99) 95 Room Air 03/05/17 04:21 98.0 96 18 156/77 (103) 98 Room Air 03/05/17 04:17 96 16 156/77 (103) 98 Physical Exam GENERAL: This is a well-nourished, well-developed patient, in no apparent distress. SKIN: No rashes, ecchymoses or lesions. Cool and dry. HEAD: Atraumatic. Normocephalic. No temporal or scalp tenderness. EYES: Pupils equal round and reactive. Extraocular motions intact. ENT: Nose without bleeding, purulent drainage or septal hematoma. Throat without erythema, tonsillar hypertrophy or exudate. Uvula midline. Airway patent. NECK: Trachea midline. CARDIOVASCULAR: Regular rate and rhythm without murmurs, gallops, or rubs. RESPIRATORY: Clear to auscultation. Breath sounds equal bilaterally. No wheezes , rales, or rhonchi. GASTROINTESTINAL: Abdomen soft, non-tender, nondistended. No hepato-splenomegaly , or palpable masses. No guarding. MUSCULOSKELETAL: Extremities without clubbing, cyanosis, or edema. No joint tenderness, effusion, or edema noted. No calf tenderness. NEUROLOGICAL: Awake and alert. Confused. Appears intoxicated. Laboratory Laboratory Tests Test 03/05/17 04:45 03/05/17 04:48 03/05/17 05:20 03/05/17 07:25 White Blood Count 6.5 Red Blood Count 4.86 Hemoglobin 14.0 Hematocrit 41.5 Mean Corpuscular Volume 85.3 Mean Corpuscular Hemoglobin 28.7 Mean Corpuscular Hemoglobin Concent 33.7 Red Cell Distribution Width 13.2 Platelet Count 266 Mean Platelet Volume 7.4 Neutrophils (%) (Auto) 48.6 Lymphocytes (%) (Auto) 37.2 Monocytes (%) (Auto) 10.4 Eosinophils (%) (Auto) 2.9 Basophils (%) (Auto) 0.9 Neutrophils # (Auto) 3.2 Lymphocytes # (Auto) 2.4 Monocytes # (Auto) 0.7 Eosinophils # (Auto) 0.2 Basophils # (Auto) 0.1 CBC Comment DIFF FINAL Differential Comment Prothrombin Time 10.7 Prothromb Time International Ratio 1.1 Activated Partial Thromboplast Time 23.6 Blood Urea Nitrogen 6 Creatinine 0.93 Random Glucose 222 Total Protein 7.1 Albumin 3.1 Calcium Level 7.7 Alkaline Phosphatase 121 Aspartate Amino Transf (AST/SGOT) 36 Alanine Aminotransferase (ALT/SGPT) 26 Total Bilirubin 0.4 Sodium Level 141 Potassium Level 4.2 Chloride Level 108 Carbon Dioxide Level 24.2 Anion Gap 9 Estimat Glomerular Filtration Rate 100 Total Creatine Kinase 820 Creatine Kinase MB 9.6 Creatine Kinase MB % 1.2 Troponin I 0.05 Thyroid Stimulating Hormone 3rd Gen 1.540 Salicylates Level LESS THAN 1.7 Acetaminophen Level LESS THAN 2.0 Ethyl Alcohol Level 75 Lactic Acid Level 2.1 0.9 Ammonia 104 Urine Color LIGHT-YELLOW Urine Turbidity CLEAR Urine pH 5.5 Urine Specific [place] 1.006 Urine Protein NEG Urine Glucose (UA) TRACE Urine Ketones NEG Urine Occult Blood NEG Urine Nitrite NEG Urine Bilirubin NEG Urine Urobilinogen LESS THAN 2.0 Urine Leukocyte Esterase NEG Urine RBC 1 Urine WBC 1 Urine Mucus FEW Microscopic Urinalysis Comment CULT NOT INDICATED Urine Opiates Screen NEG Urine Barbiturates Screen NEG Urine Amphetamines Screen NEG Urine Benzodiazepines Screen NEG Urine Cocaine Screen POS Urine Cannabinoids Screen NEG Result Diagram: 03/05/17 0445 03/05/17 0445 Imaging Last Impressions Chest X-Ray 03/05/17 0430 Signed Impressions: Service Date/Time: February 04:35 - CONCLUSION: No infiltrates seen. Lemuel Millan MD Head CT 03/05/17 0000 Signed Impressions: Service Date/Time: February 05:30 - CONCLUSION: Negative noncontrast CT brain. Lemuel Millan MD Chest CT 03/05/17 0000 Signed Impressions: Service Date/Time: Thursday, March 05, 2017 05:34 - CONCLUSION: 1. No evidence of pneumothorax. 2. 2 noncalcified nodules in the right lung measuring 3 mm. In accordance with Fleischner Society guidelines, recommend followup scan in 12 months. MD Shital Brady VTE Risk Assessment [place] VTE Risk Assessment: Mod/High Risk (score >= 2) Caprini Risk Assessment Model Point Value = 1 Point Value = 2 Point Value = 3 Point Value = 5 Age 41-60 Minor surgery BMI > 25 kg/m2 Swollen legs Varicose veins or History of unexplained or recurrent spontaneous Oral contraceptives or hormone replacement Sepsis (< 1 month) Serious lung disease, including pneumonia (< 1 month) Abnormal pulmonary function Acute myocardial infarction Congestive heart failure (< 1 month) History of inflammatory bowel disease Medical patient at bed rest Age 61-74 Arthroscopic surgery Major open surgery (> 45 min) Laparoscopic surgery (> 45 min) Malignancy Confined to bed (> 72 hours) Immobilizing plaster cast Central venous access Age >= 75 History of VTE Family history of VTE Factor V Leiden Prothrombin [id number] Lupus anticoagulant Anticardiolipin antibodies Elevated serum homocysteine Heparin-induced thrombocytopenia Other congenital or acquired thrombophilia Stroke (< 1 month) Elective arthroplasty Hip, pelvis, or leg fracture Acute spinal cord injury (< 1 month) Prophylaxis Regimen Total Risk Factor Score Risk Level Prophylaxis Regimen 0-1 Low Early ambulation 2 Moderate Order ONE of the following: *Sequential Compression Device (SCD) *Heparin 5000 units SQ BID 3-4 Higher Order ONE of the following medications: *Heparin 5000 units SQ TID *Enoxaparin/Lovenox 40 mg SQ daily (WT < 150 kg, CrCl > 30 mL/min) *Enoxaparin/Lovenox 30 mg SQ daily (WT < 150 kg, CrCl > 10-29 mL/min) *Enoxaparin/Lovenox 30 mg SQ BID (WT < 150 kg, CrCl > 30 mL/min) AND/OR *Sequential Compression Device (SCD) 5 or more Highest Order ONE of the following medications: *Heparin 5000 units SQ TID (Preferred with Epidurals) *Enoxaparin/Lovenox 40 mg SQ daily (WT < 150 kg, CrCl > 30 mL/min) *Enoxaparin/Lovenox 30 mg SQ daily (WT < 150 kg, CrCl > 10-29 mL/min) *Enoxaparin/Lovenox 30 mg SQ BID (WT < 150 kg, CrCl > 30 mL/min) AND *Sequential Compression Device (SCD) Assessment and Plan Assessment and Plan 1. Encephalopathy due to intoxication, polysubstance abuse: Patient brought to ER by police under [place] Act. Consult psychiatry. Patient has been counselled in the past, but will need counselling again when mental status improves. UDS positive for cocaine. +EtOH. Monitor on telemetry. 2. Diabetes: Monitor accuchecks and cover with sliding scale insulin. 3. GERD: PPI. 4. Hypertension: Continue HCTZ. 5. DVT prophylaxis: Heparin. 6. Lactic acidosis: Resolved. 7. Hyperammonemia: Monitor mental status, serum ammonia level. Will add lactulose. 8. Elevated serum CK: Continue IV fluids. Repeat labs in the morning. Deyvi Hooks MD Mar 05, 2017 10:15
[2017-03-05] MEDS: LACTULOSE SYRUP 20 GM/30 ML CUP PO SCH (10:59)
[2017-03-05] MEDS ORDERED: LORazepam 2 MG/ML VIAL IV PUSH PRN ×4 (11:30)
[2017-03-05] MEDS ORDERED: LORazepam 2 MG TAB PO PRN (11:30)
[2017-03-05] MEDS ORDERED: LORazepam 1 MG TAB PO PRN (11:30)
[2017-03-05] MEDS ORDERED: FLUMAZENIL 0.5 MG/5 ML VIAL IV PUSH PRN (11:30)
--- NOTE | 2017-03-05 13:10 | PD.PSY.CON ---
Provisional Diagnosis Admission Date Mar 05, 2017 at 08:21 Brewster I. Substance induced mood disorder, polysubstance dependence including heroin, cocaine and alcohol Brewster II. Antisocial personality disorder Brewster III. Diabetes mellitus, hypertension History of Present Illness Service Psychiatry Consult Requested By ER team Reason for Consult [facility] Primary Care Physician Unknown HPI The patient is a 61 year old man, domiciled in [facility], single , unemployed, , service connected, with psychiatric history of polysubstance dependence, including cocaine, heroine, alcohol, substance induced mood disorder, bipolar, depression, anxiety, antisocial personality disorder, multiple ER visits with substance related problems, he has outpatient psychiatric care in [place], he is on trazodone 700 mg and BuSpar 20 mg daily, medical history hypertension and diabetes, who was brought to the emergency department with police escort under [facility]. He was found at [facility] exhibiting behavior consistent with intoxication. Patient admits to recent cocaine use and that he had 12 beers last night. Toxicology positive for cocaine, BAL is 75. On psychiatric evaluation today the patient is oppositional , resistant, guarded. With redirection patient was able to cooperate a little more. As per chart review, patient is usually like this. Patient reports okay mood, he denies depression, he says that he doesnt remember the circumstances that brought him to the hospital. He says that he was drunk and high in cocaine. He denies suicidal and homicidal ideation, he denies visual and auditory hallucination at this moment. He reported that he is compliant with psychotropics an outpatient psychiatric care. He reports daily use of alcohol, heroine and cocaine, he refused to quantify and give details. Review of Systems Constitutional: DENIES: Diaphoretic episodes, Fatigue, Fever, Weight gain, Weight loss, Chills, Dizziness, Change in appetite, Night Sweats Endocrine: DENIES: Heat/cold intolerance, Polydipsia, Polyuria, Polyphagia Ears, nose, mouth, throat: DENIES: Tinnitus, Hearing loss, Vertigo, Nasal discharge, Oral lesions, Throat pain, Hoarseness, Ear Pain, Running Nose, Epistaxis, Sinus Pain, Toothache, Odynophagia Respiratory: DENIES: Apneas, Cough, Snoring, Wheezing, Hemoptysis, Sputum production, Shortness of breath Cardiovascular: DENIES: Chest pain, Palpitations, Syncope, Dyspnea on Exertion , PND, Lower Extremity Edema, Orthopnea, Claudication Gastrointestinal: DENIES: Abdominal pain, Black stools, Bloody stools, Constipation, Diarrhea, Nausea, Vomiting, Difficulty Swallowing, Anorexia Genitourinary: DENIES: Sexual dysfunction, Urinary frequency, Urinary incontinence, Urgency, Hematuria, Dysuria, Nocturia, Penile Discharge, Testicular Pain, Testicular Swelling Musculoskeletal: DENIES: Joint pain, Muscle aches, Stiffness, Joint Swelling, Back pain, Neck pain Integumentary: DENIES: Abnormal pigmentation, Nail changes, Pruritus, Rash Hematologic/lymphatic: DENIES: Bruising, Lymphadenopathy Immunologic/allergic: DENIES: Eczema, Urticaria Neurologic: DENIES: Abnormal gait, Headache, Localized weakness, Paresthesias, Seizures, Speech Problems, Tremor, Poor Balance Psychiatric: DENIES: Anxiety, Confusion, Mood changes, Depression, Hallucinations, Agitation, Suicidal Ideation, Homicidal Ideation, Delusions Past Family Social History Coded Allergies: lisinopril (Verified Adverse Reaction, Intermediate, COUGH, 03/02/17) Active Scripts Thiamine HCl (Gnp Vitamin B-1) 100 Mg Tab, 100 MG PO DAILY for Nutritional Supplement, #5 TAB Prov:Thor Givens 07/06/16 Omeprazole (Omeprazole) 20 Mg Tab, 20 MG PO DAILY for Reflux, #30 TAB 0 Refills Prov:Thor Givens 07/06/[address] (Aspirin EC) 81 Mg Tabdr, 81 MG PO DAILY for Prevent Blood Clot, #30 TAB 0 Refills Prov:Leonor Vee PA-C 06/09/16 Reported Medications Gabapentin (Gabapentin) 600 Mg Tab, 600 MG PO BID, #60 TAB 0 Refills 09/25/16 Bupropion HCl (Bupropion HCl) 75 Mg Tab, 150 MG PO BID for Control Depression, TAB 0 Refills 06/08/16 Hydrochlorothiazide (Hydrochlorothiazide) 12.5 Mg Cap, 12.5 MG PO DAILY, #30 CAP 0 Refills 12/15/15 Albuterol 18 GM Inh (Ventolin Hfa 18 GM Inh) 90 Mcg/Act Aer, 2 PUFF INH Q6H Y for SHORTNESS OF BREATH, #1 INHALER 0 Refills 12/15/15 Insulin Human Isophane-Regular 70-30 Inj (Novolin 70-30 Inj) 1,000 Unit/10 Ml Vial, 50 UNITS SQ BID for Blood Sugar Management, ML 0 Refills 12/15/15 Methocarbamol (Methocarbamol) 750 Mg Tab, 750 MG PO HS for Muscle Spasm, #120 TAB 0 Refills 12/15/15 Current Medications Medications (Trade) Dose Ordered Sig/Salas Route Start Time Stop Time Status Last Admin (NS Flush) 2 ml UNSCH PRN IV FLUSH 03/05/17 04:30 Sodium Chloride 1,000 ml @ 50 mls/hr Q20H IV 03/05/17 08:00 03/05/17 10:59 (Zofran Inj) 4 mg Q6H PRN IVP 03/05/17 07:45 (Heparin Inj) 5,000 units Q8H SQ 03/05/17 08:00 03/05/17 09:11 (Narcan Inj) 0.4 mg UNSCH PRN IV PUSH 03/05/17 07:45 (Guadalupe-Colace) 1 tab BID PO 03/05/17 09:00 (Milk Of Magnesia Liq) 30 ml Q12H PRN PO 03/05/17 07:45 (Senokot) 17.2 mg Q12H PRN PO 03/05/17 07:45 (Dulcolax Supp) 10 mg DAILY PRN RECTAL 03/05/17 07:45 (Lactulose Liq) 30 ml DAILY PRN PO 03/05/17 07:45 (Lactulose Liq) 30 ml DAILY PO 03/05/17 10:15 03/05/17 10:59 (Romazicon Inj) 0.2 mg Q1M PRN IV PUSH 03/05/17 11:30 (Ativan) 1 mg Q4H PRN PO 03/05/17 11:30 (Ativan Inj) 1 mg Q4H PRN IV PUSH 03/05/17 11:30 (Ativan) 2 mg Q2H PRN PO 03/05/17 11:30 (Ativan Inj) 2 mg Q2H PRN IV PUSH 03/05/17 11:30 (Ativan Inj) 2 mg Q1H PRN IV PUSH 03/05/17 11:30 (Ativan Inj) 2 mg Q15M PRN IV PUSH 03/05/17 11:30 Family Psych History No family psychiatric history Social History Patient was born and raised in [place], he lives in [facility] alone, he is a , single, unemployed, his highest level of education is 12th Patient's Strengths (min. 2) Outpatient psychiatric care Physical Exam Vital Signs Vital Signs Date Time Temp Pulse Resp B/P (MAP) Pulse Ox O2 Delivery O2 Flow Rate FiO2 03/05/17 10:55 87 14 154/78 (103) 98 Room Air 03/05/17 04:21 98.0 I/O 03/05/17 03/05/17 03/06/17 08:00 16:00 00:00 Intake Total 1000 ml Balance 1000 ml Lab Results Test 03/05/17 04:45 03/05/17 04:48 03/05/17 05:20 03/05/17 07:25 White Blood Count 6.5 TH/MM3 Red Blood Count 4.86 MIL/MM3 Hemoglobin 14.0 GM/DL Hematocrit 41.5 % Mean Corpuscular Volume 85.3 FL Mean Corpuscular Hemoglobin 28.7 PG Mean Corpuscular Hemoglobin Concent 33.7 % Red Cell Distribution Width 13.2 % Platelet Count 266 TH/MM3 Mean Platelet Volume 7.4 FL Neutrophils (%) (Auto) 48.6 % Lymphocytes (%) (Auto) 37.2 % Monocytes (%) (Auto) 10.4 % Eosinophils (%) (Auto) 2.9 % Basophils (%) (Auto) 0.9 % Neutrophils # (Auto) 3.2 TH/MM3 Lymphocytes # (Auto) 2.4 TH/MM3 Monocytes # (Auto) 0.7 TH/MM3 Eosinophils # (Auto) 0.2 TH/MM3 Basophils # (Auto) 0.1 TH/MM3 CBC Comment DIFF FINAL Differential Comment Prothrombin Time 10.7 SEC Prothromb Time International Ratio 1.1 RATIO Activated Partial Thromboplast Time 23.6 SEC Blood Urea Nitrogen 6 MG/DL Creatinine 0.93 MG/DL Random Glucose 222 MG/DL Total Protein 7.1 GM/DL Albumin 3.1 GM/DL Calcium Level 7.7 MG/DL Alkaline Phosphatase 121 U/L Aspartate Amino Transf (AST/SGOT) 36 U/L Alanine Aminotransferase (ALT/SGPT) 26 U/L Total Bilirubin 0.4 MG/DL Sodium Level 141 MEQ/L Potassium Level 4.2 MEQ/L Chloride Level 108 MEQ/L Carbon Dioxide Level 24.2 MEQ/L Anion Gap 9 MEQ/L Estimat Glomerular Filtration Rate 100 ML/MIN Total Creatine Kinase 820 U/L Creatine Kinase MB 9.6 NG/ML Creatine Kinase MB % 1.2 % Troponin I 0.05 NG/ML Thyroid Stimulating Hormone 3rd Gen 1.540 uIU/ML Salicylates Level LESS THAN 1.7 MG/DL Acetaminophen Level LESS THAN 2.0 MCG/ML Ethyl Alcohol Level 75 MG/DL Lactic Acid Level 2.1 mmol/L 0.9 mmol/L Ammonia 104 MCMOL/L Urine Color LIGHT-YELLOW Urine Turbidity CLEAR Urine pH 5.5 Urine Specific Jewell 1.006 Urine Protein NEG mg/dL Urine Glucose (UA) TRACE mg/dL Urine Ketones NEG mg/dL Urine Occult Blood NEG Urine Nitrite NEG Urine Bilirubin NEG Urine Urobilinogen LESS THAN 2.0 MG/DL Urine Leukocyte Esterase NEG Urine RBC 1 /hpf Urine WBC 1 /hpf Urine Mucus FEW /lpf Microscopic Urinalysis Comment CULT NOT INDICATED Urine Opiates Screen NEG Urine Barbiturates Screen NEG Urine Amphetamines Screen NEG Urine Benzodiazepines Screen NEG Urine Cocaine Screen POS Urine Cannabinoids Screen NEG Mental Status Examination Appearance: Appropriate Consciousness: Alert Orientation: x4 Motor Activity: Normal gait Speech: Unremarkable Language: Adequate Fund of Knowledge: Adequate Attention and Concentration: Adequate Memory: Unremarkable Mood: Appropriate Affect: Irritable Thought Process & Associations: Intact Thought Content: Appropriate Hallucination Type: None Delusion Type: None Suicidal Ideation: No Suicidal Plan: No Suicidal Intention: No Homicidal Ideation: No Homicidal Plan: No Homicidal Intention: No Insight: Adequate Judgment: Adequate Assessment & Plan Problem List: (1) Substance induced mood disorder ICD Codes: F19.94 - Substance induced mood disorder Status: Acute Assessment & Plan: On psychiatric evaluation today patient is irritable, will guarded, but he denies depressive symptoms, denies anxiety, denies adela and psychosis. He denies suicidal and homicidal ideation, he denies visual and auditory hallucinations. Patient is well known by this service. He has extensive history of polysubstance dependence, including heroin, cocaine and alcohol, multiple ER visits with addiction related problems. He has history of noncompliant with medication recommendations, antisocial personality disorder and using psychiatric symptoms in order to use the hospital as a fpc. He does not meet criteria for involuntary psychiatric admission at this moment. He would really benefit of an inpatient/comprehensive rehabilitation program for his drug use disorder. place in [facility] Brief supportive psychotherapy provided. [place] act will be lifted. Assessment & Plan Estimated LOS: days Charly Saleh MD Mar 05, 2017 13:10
[2017-03-05] MEDS ORDERED: GABAPENTIN 300 MG CAP PO SCH (21:00)
[2017-03-05] MEDS: GABAPENTIN 300 MG CAP PO SCH (21:41)
[2017-03-05] MEDS: INSULIN ASPART SUPPLEMENTAL SCALE SQ SCH (22:05)
--- NOTE | 2017-03-05 23:29 | EKG ---
Date Performed: 03/05/2017 Time Performed: 05:22:23 PTAGE: 61 years EKG: Sinus rhythm POSSIBLE LEFT ATRIAL ENLARGEMENT POSSIBLE RIGHT VENTRICULAR CONDUCTION DELAY NONSPECIFIC T-WAVE ABNO RMALITY BORDERLINE ECG PREVIOUS TRACING : 02/03/2017 11.50 Compared to prior tracing, probably no significant change, although baseline artifact makes it difficult to compare DOCTOR: Erik Benites Interpretating Date/Time 03/05/2017 23:28:24
[2017-03-06] VITALS (7 sets, daily range): BP systolic 154–173; BP diastolic 76–96; PULSE 74–98; RESP 18–20; TEMP 97.3–98.5; O2SAT 93–100
[2017-03-06 05:03] LABS: BASOPHIL # 0.1 TH/MM3 (0-0.2); BASOPHIL % 0.8 % (0.0-2.0); EOSINOPHIL # 0.3 TH/MM3 (0-0.4); EOSINOPHIL % 4.1 % (0.0-4.0); HEMATOCRIT 42.9 % (39.0-51.0); HEMOGLOBIN 14.4 GM/DL (13.0-17.0); LYMPH % 34.6 % (9.0-44.0); LYMPHOCYTE # 2.8 TH/MM3 (1.0-4.8); MEAN CORPUSCULAR HEMOGLOBIN 28.5 PG (27.0-34.0); MEAN CORPUSCULAR HGB CONC 33.5 % (32.0-36.0); MEAN PLATELET VOLUME 7.4 FL (7.0-11.0); MONOCYTE # 0.9 TH/MM3 (0-0.9); NEUT % 49.5 % (16.0-70.0); PLATELET COUNT 265 TH/MM3 (150-450); RED BLOOD COUNT 5.05 MIL/MM3 (4.50-5.90); RED CELL DISTRIBUTION WIDTH 13.5 % (11.6-17.2)
[2017-03-06 05:15] LABS: ALBUMIN 2.8 GM/DL (3.4-5.0); ALT (GPT) 21 U/L (12-78); AST (GOT) 18 U/L (15-37); BICARBONATE 28.7 MEQ/L (21.0-32.0); BLOOD UREA NITROGEN 8 MG/DL (7-18); CALCIUM 8.3 MG/DL (8.5-10.1); CHLORIDE 107 MEQ/L (98-107); CREATININE 1.02 MG/DL (0.60-1.30); GLOMERULAR FILTRATION RATE 90 ML/MIN (>89); GLUCOSE,RANDOM 118 MG/DL (74-106); MAGNESIUM 1.9 MG/DL (1.5-2.5); PHOSPHORUS 4.1 MG/DL (2.5-4.9); SODIUM (NA) 141 MEQ/L (136-145)
[2017-03-06] MEDS: SODIUM CHLOR 0.9% 1000 ML INJ 1,000 ML IV SCH (05:15)
[2017-03-06] MEDS ORDERED: DEXTROSE 50% IN WATER 50 ML VIAL(D50) IV PUSH PRN (05:15)
[2017-03-06] MEDS ORDERED: GLUCAGON 1 MG/ML VIAL OTHER PRN (05:15)
[2017-03-06] MEDS ORDERED: cloNIDine HCL 0.1 MG TAB PO PRN (05:15)
[2017-03-06 05:20] LABS: ALKALINE PHOSPHATASE 97 U/L (45-117); TOTAL BILIRUBIN ADULT 0.3 MG/DL (0.2-1.0); TOTAL PROTEIN 6.4 GM/DL (6.4-8.2)
[2017-03-06] MEDS: INSULIN ASPART SUPPLEMENTAL SCALE SQ SCH ×3 (08:00→17:00)
[2017-03-06] MEDS: LACTULOSE SYRUP 20 GM/30 ML CUP PO SCH (08:25)
[2017-03-06] MEDS: GABAPENTIN 300 MG CAP PO SCH ×2 (08:26→19:15)
[2017-03-06] MEDS: HEPARIN SODIUM - SQ 10,000 UNITS/ML VIAL SQ SCH ×2 (08:26→16:32)
[2017-03-06] MEDS: DOCUSATE SODIUM 50 MG/SENNA 8.6 MG TAB PO SCH ×2 (08:27→21:00)
[2017-03-06] MEDS ORDERED: traMADol HCL 50 MG TAB PO ONE (09:15)
--- NOTE | 2017-03-06 11:16 | HHI.PR ---
Subjective Remarks Follow-up toxic encephalopathy. He is awake and oriented. Understands he needs to quit illicit drugs. Discussed with nursing staff in case management Objective Vitals Vital Signs Date Time Temp Pulse Resp B/P (MAP) Pulse Ox O2 Delivery O2 Flow Rate FiO2 03/06/17 07:42 97.3 74 18 154/86 (108) 93 03/06/17 07:26 78 03/06/17 04:00 98.3 87 20 162/76 (104) 97 03/06/17 00:00 97.8 79 20 169/79 (109) 96 03/05/17 21:17 99.2 82 17 171/97 (121) 94 03/05/17 18:23 93 03/05/17 18:03 98.3 84 20 161/87 (111) 100 03/05/17 13:29 I/O 03/05/17 03/05/17 03/05/17 03/06/17 03/06/17 03/06/17 07:00 15:00 23:00 07:00 15:00 23:00 Intake Total 1000 ml 1180 ml 1200 ml Output Total 1000 ml 500 ml Balance 1000 ml 180 ml 700 ml Intake Oral 180 ml 1200 ml IV Total 1000 ml 1000 ml Output Urine Total 1000 ml 500 ml # Voids 1 # Bowel Movements 1 0 Result Diagram: 03/06/17 0421 03/06/17 0421 Imaging Last Impressions Chest X-Ray 03/05/17 0430 Signed Impressions: Service Date/Time: February 04:35 - CONCLUSION: No infiltrates seen. Lemuel Millan MD Head CT 03/05/17 0000 Signed Impressions: Service Date/Time: February 05:30 - CONCLUSION: Negative noncontrast CT brain. Lemuel Millan MD Chest CT 03/05/17 0000 Signed Impressions: Service Date/Time: February 05:34 - CONCLUSION: 1. No evidence of pneumothorax. 2. 2 noncalcified nodules in the right lung measuring 3 mm. In accordance with Fleischner Society guidelines, recommend followup scan in 12 months. Lemuel Millan MD Objective Remarks GENERAL: This is a well-nourished, well-developed patient, in no apparent distress. SKIN: No rashes, ecchymoses or lesions. Cool and dry. CARDIOVASCULAR: Regular rate and rhythm without murmurs, gallops, or rubs. RESPIRATORY: Clear to auscultation. Breath sounds equal bilaterally. No wheezes , rales, or rhonchi. GASTROINTESTINAL: Abdomen soft, non-tender, nondistended. No guarding. MUSCULOSKELETAL: Extremities without clubbing, cyanosis, or edema. No joint tenderness, effusion, or edema noted. No calf tenderness. NEUROLOGICAL: Awake and alert. Oriented nonfocal Procedures none A/P Problem List: (1) Lactic acidosis ICD Code: E87.2 - Acidosis (2) Hyperammonemia ICD Code: E72.20 - Disorder of urea cycle metabolism, unspecified (3) Alcohol abuse ICD Code: F10.10 - Alcohol abuse, uncomplicated Status: Chronic (4) Substance induced mood disorder ICD Code: F19.94 - Substance induced mood disorder Status: Acute (5) Cocaine abuse, unspecified ICD Code: F14.10 - Cocaine abuse, uncomplicated Status: Acute (6) Polysubstance dependence ICD Code: F19.20 - Other psychoactive substance dependence, uncomplicated Status: Chronic (7) Alcohol abuse with intoxication ICD Code: F10.129 - Alcohol abuse with intoxication, unspecified (8) Hypertension ICD Code: I10 - Hypertension Status: Chronic (9) Diabetes ICD Code: E11.9 - Diabetes mellitus Status: Chronic (10) Elevated creatine kinase level ICD Code: R74.8 - Elevated creatine kinase level Status: Acute Assessment and Plan 1. Encephalopathy due to intoxication, polysubstance abuse: Improved. Patient counseled regarding illicit drug use. Discharge to [email or web address] Monitor on telemetry. 2. Diabetes: Monitor accuchecks and cover with sliding scale insulin. Tramadol for neuropathy, ct gabapentin 3. GERD: PPI. 4. Hypertension: Continue HCTZ. 5. Elevated serum CK: Improved with IV fluids. 6. Lactic acidosis: Resolved. 7. Hyperammonemia: Improving on lactulose. 8. Right lung nodule. Rpt CT in 12 mos DVT prophylaxis: Heparin. Med rec by squirrel worker Planning Discharge patient to home Condition on discharge: Improved Regular Diet as tolerated Ad Rosemarie activity no driving Rx written: Lactulose Follow-up with primary care physician Melchor Waggoner MD Mar 06, 2017 11:16
[2017-03-06] MEDS ORDERED: Lactulose Liq PO (15:08)
[2017-03-06] MEDS: HYDROCHLOROTHIAZIDE 12.5 MG CAP PO SCH (16:32)
[2017-03-06] MEDS: traMADol HCL 50 MG TAB PO PRN (20:01)
[2017-03-07 03:18] VITALS: BP 162/90; PULSE 68; RESP 18; TEMP 98.1; O2SAT 98
[2017-03-07] MEDS: GABAPENTIN 300 MG CAP PO SCH ×2 (06:45→19:45)
[2017-03-07 07:31] VITALS: BP 161/85; PULSE 78; RESP 18; TEMP 98; O2SAT 100
[2017-03-07] MEDS: INSULIN ASPART SUPPLEMENTAL SCALE SQ SCH ×3 (09:35→19:08)
[2017-03-07] MEDS: DOCUSATE SODIUM 50 MG/SENNA 8.6 MG TAB PO SCH ×2 (09:36→21:00)
[2017-03-07] MEDS: HYDROCHLOROTHIAZIDE 12.5 MG CAP PO SCH (09:36)
[2017-03-07] MEDS: LACTULOSE SYRUP 20 GM/30 ML CUP PO SCH (09:36)
[2017-03-07] MEDS: HEPARIN SODIUM - SQ 10,000 UNITS/ML VIAL SQ SCH ×3 (09:36→18:00)
[2017-03-07] MEDS: traMADol HCL 50 MG TAB PO PRN (09:43)
--- NOTE | 2017-03-07 10:46 | HHI.DS ---
Discharge Summary Admission Date Mar 05, 2017 at 08:21 Discharge Date: Mar 08, 2017 Admitting Diagnosis Encephalopathy, intoxication (1) Lactic acidosis ICD Code: E87.2 - Acidosis Diagnosis: Principal (2) Hyperammonemia ICD Code: E72.20 - Disorder of urea cycle metabolism, unspecified Diagnosis: Principal (3) Alcohol abuse ICD Code: F10.10 - Alcohol abuse, uncomplicated Diagnosis: Principal Status: Acute (4) Substance induced mood disorder ICD Code: F19.94 - Substance induced mood disorder Status: Acute (5) Cocaine abuse, unspecified ICD Code: F14.10 - Cocaine abuse, uncomplicated Diagnosis: Principal Status: Acute (6) Polysubstance dependence ICD Code: F19.20 - Other psychoactive substance dependence, uncomplicated Diagnosis: Principal Status: Chronic (7) Alcohol abuse with intoxication ICD Code: F10.129 - Alcohol abuse with intoxication, unspecified Diagnosis: Principal (8) Hypertension ICD Code: I10 - Hypertension Diagnosis: Principal Status: Chronic (9) Diabetes ICD Code: E11.9 - Diabetes mellitus Diagnosis: Principal Status: Chronic (10) Elevated creatine kinase level ICD Code: R74.8 - Elevated creatine kinase level Diagnosis: Principal Status: Acute Procedures none Brief History - From Admission The patient is a 61 year old male brought to the emergency department with police escort under [place] Act. He was found at [facility] exhibiting behavior consistent with intoxication. Patient admits to recent cocaine use and that he had 12 beers last night. He is still confused and provides little history. CBC/BMP: 03/06/17 0421 03/06/17 0421 Significant Findings Laboratory Tests Test 03/05/17 04:45 03/05/17 04:48 03/05/17 05:20 03/05/17 07:25 Monocytes (%) (Auto) 10.4 % (0.0-8.0) Activated Partial Thromboplast Time 23.6 SEC (24.3-30.1) Blood Urea Nitrogen 6 MG/DL (7-18) Random Glucose 222 MG/DL (74-106) Albumin 3.1 GM/DL (3.4-5.0) Calcium Level 7.7 MG/DL (8.5-10.1) Alkaline Phosphatase 121 U/L (45-117) Chloride Level 108 MEQ/L (98-107) Total Creatine Kinase 820 U/L (39-308) Creatine Kinase MB 9.6 NG/ML (0.5-3.6) Salicylates Level LESS THAN 1.7 MG/DL Acetaminophen Level LESS THAN 2.0 MCG/ML Ethyl Alcohol Level 75 MG/DL (0-5) Lactic Acid Level 2.1 mmol/L (0.4-2.0) Ammonia 104 MCMOL/L (11-32) Urine Mucus FEW /lpf (OCC) Urine Cocaine Screen POS (NEG) Test 03/06/17 04:21 Monocytes (%) (Auto) 11.0 % (0.0-8.0) Eosinophils (%) (Auto) 4.1 % (0.0-4.0) Random Glucose 118 MG/DL (74-106) Albumin 2.8 GM/DL (3.4-5.0) Calcium Level 8.3 MG/DL (8.5-10.1) Ammonia 48 MCMOL/L (11-32) Imaging Last Impressions Liver Ultrasound 03/07/17 0000 Signed Impressions: Service Date/Time: Tuesday, March 07, 2017 09:49 - CONCLUSION: Normal appearance of the liver. No evidence of mass or cirrhotic morphology. Benign right renal cyst.. Isaura Patel MD Chest X-Ray 03/05/17 0430 Signed Impressions: Service Date/Time: February 04:35 - CONCLUSION: No infiltrates seen. Lemuel Millan MD Head CT 03/05/17 0000 Signed Impressions: Service Date/Time: February 05:30 - CONCLUSION: Negative noncontrast CT brain. Lemuel Millan MD Chest CT 03/05/17 0000 Signed Impressions: Service Date/Time: February 05:34 - CONCLUSION: 1. No evidence of pneumothorax. 2. 2 noncalcified nodules in the right lung measuring 3 mm. In accordance with Fleischner Society guidelines, recommend followup scan in 12 months. Lemuel Millan MD PE at Discharge GENERAL: This is a well-nourished, well-developed patient, in no apparent distress. SKIN: No rashes, ecchymoses or lesions. Cool and dry. CARDIOVASCULAR: Regular rate and rhythm without murmurs, gallops, or rubs. RESPIRATORY: Clear to auscultation. Breath sounds equal bilaterally. No wheezes , rales, or rhonchi. GASTROINTESTINAL: Abdomen soft, non-tender, nondistended. No guarding. MUSCULOSKELETAL: Extremities without clubbing, cyanosis, or edema. No joint tenderness, effusion, or edema noted. No calf tenderness. NEUROLOGICAL: Awake and alert. Oriented nonfocal Hospital Course 1. Encephalopathy due to intoxication, polysubstance abuse: Resolved. Patient counseled regarding illicit drug use. Discharge to [facility]. Monitor on telemetry. 2. Diabetes: Stable despite not on LA insulin. Monitor accuchecks and cover with sliding scale insulin. Tramadol for neuropathy, ct gabapentin 3. GERD: PPI. 4. Hypertension: Continue HCTZ. 5. Elevated serum CK: Improved with IV fluids. 6. Lactic acidosis: Resolved. 7. Hyperammonemia: Improving on lactulose. History of hepatitis C. Normal sonogram. Patient advised outpatient follow-up with GI 8. Right lung nodule. Rpt CT in 12 mos DVT prophylaxis: Heparin. [facility] Doubt pt on meds Pt left AMA awaiting bed availability at [facility] Pt Condition on Discharge: Fair Discharge Disposition: Disc to Psych Care Fac Discharge Time: > 30 minutes Discharge Instructions DIET: Follow Instructions for: Heart Healthy Diet, Diabetic Diet Speech Therapy-Diet Recommends: Honey Thickened Liquids (left AMA) Activities you can perform: Regular-No Restrictions Follow up Referrals: Drug/Alcohol Rehab - Today with Flavio Xiao PCP Follow-up - 1 Week New Medications: [Lactulose Liq] () 30 ML SYRP 30 ML PO DAILY for confusion, #900 ML Continued Medications: Albuterol 18 GM Inh (Ventolin Hfa 18 GM Inh) 90 Mcg/Act Aer 2 PUFF INH Q6H PRN for SHORTNESS OF BREATH, #1 INHALER [address] (Aspirin EC) 81 Mg Tabdr 81 MG PO DAILY for Prevent Blood Clot, #30 TAB 0 Refills Bupropion HCl (Bupropion HCl) 75 Mg Tab 150 MG PO BID for Control Depression, TAB 0 Refills Gabapentin (Gabapentin) 600 Mg Tab 600 MG PO BID, #60 TAB 0 Refills Hydrochlorothiazide (Hydrochlorothiazide) 12.5 Mg Cap 12.5 MG PO DAILY, #30 CAP 0 Refills Insulin Human Isophane-Regular 70-30 Inj (Novolin 70-30 Inj) 1,000 Unit/10 Ml Vial 40 UNITS SQ BID for Blood Sugar Management, #100 ML 0 Refills Methocarbamol (Methocarbamol) 750 Mg Tab 750 MG PO HS for Muscle Spasm, #120 TAB 0 Refills Omeprazole (Omeprazole) 20 Mg Tab 20 MG PO DAILY for Reflux, #30 TAB 0 Refills Thiamine HCl (Gnp Vitamin B-1) 100 Mg Tab 100 MG PO DAILY for Nutritional Supplement, #5 TAB Melchor Waggoner MD Mar 07, 2017 10:46
--- NOTE | 2017-03-07 10:46 | HHI.PR ---
Subjective Remarks Follow-up encephalopathy. Patient without complaints oriented 4. History of hepatitis C. Discussed with RN, patient stable for discharge pending transfer to [facility] awaiting bed Objective Vitals Vital Signs Date Time Temp Pulse Resp B/P (MAP) Pulse Ox O2 Delivery O2 Flow Rate FiO2 03/07/17 07:31 98.0 78 18 161/85 (110) 100 03/07/17 03:18 98.1 68 18 162/90 (114) 98 03/06/17 23:42 98.1 98 18 168/87 (114) 98 03/06/17 15:44 98.5 87 18 173/96 (121) 100 03/06/17 12:46 98.0 82 18 172/93 (119) 94 I/O 03/06/17 03/06/17 03/06/17 03/07/17 03/07/17 03/07/17 07:00 15:00 23:00 07:00 15:00 23:00 Intake Total 1180 ml 1200 ml 960 ml Output Total 1000 ml 500 ml 1200 ml 475 ml Balance 180 ml 700 ml -240 ml -475 ml Intake Oral 180 ml 1200 ml 960 ml IV Total 1000 ml Output Urine Total 1000 ml 500 ml 1200 ml 475 ml # Bowel Movements 0 Result Diagram: 03/06/17 0421 03/06/17 0421 Imaging Last Impressions Liver Ultrasound 03/07/17 0000 Signed Impressions: Service Date/Time: Tuesday, March 07, 2017 09:49 - CONCLUSION: Normal appearance of the liver. No evidence of mass or cirrhotic morphology. Benign right renal cyst.. Isaura Patel MD Chest X-Ray 03/05/17 0430 Signed Impressions: Service Date/Time: February 04:35 - CONCLUSION: No infiltrates seen. Lemuel Millan MD Head CT 03/05/17 0000 Signed Impressions: Service Date/Time: February 05:30 - CONCLUSION: Negative noncontrast CT brain. Lemuel Millan MD Chest CT 03/05/17 0000 Signed Impressions: Service Date/Time: February 05:34 - CONCLUSION: 1. No evidence of pneumothorax. 2. 2 noncalcified nodules in the right lung measuring 3 mm. In accordance with Fleischner Society guidelines, recommend followup scan in 12 months. Lemuel Millan MD Objective Remarks GENERAL: This is a well-nourished, well-developed patient, in no apparent distress. SKIN: No rashes, ecchymoses or lesions. Cool and dry. CARDIOVASCULAR: Regular rate and rhythm without murmurs, gallops, or rubs. RESPIRATORY: Clear to auscultation. Breath sounds equal bilaterally. No wheezes , rales, or rhonchi. GASTROINTESTINAL: Abdomen soft, non-tender, nondistended. No guarding. MUSCULOSKELETAL: Extremities without clubbing, cyanosis, or edema. No joint tenderness, effusion, or edema noted. No calf tenderness. NEUROLOGICAL: Awake and alert. Oriented nonfocal Procedures none A/P Problem List: (1) Lactic acidosis ICD Code: E87.2 - Acidosis (2) Hyperammonemia ICD Code: E72.20 - Disorder of urea cycle metabolism, unspecified (3) Alcohol abuse ICD Code: F10.10 - Alcohol abuse, uncomplicated Status: Chronic (4) Substance induced mood disorder ICD Code: F19.94 - Substance induced mood disorder Status: Acute (5) Cocaine abuse, unspecified ICD Code: F14.10 - Cocaine abuse, uncomplicated Status: Acute (6) Polysubstance dependence ICD Code: F19.20 - Other psychoactive substance dependence, uncomplicated Status: Chronic (7) Alcohol abuse with intoxication ICD Code: F10.129 - Alcohol abuse with intoxication, unspecified (8) Hypertension ICD Code: I10 - Hypertension Status: Chronic (9) Diabetes ICD Code: E11.9 - Diabetes mellitus Status: Chronic (10) Elevated creatine kinase level ICD Code: R74.8 - Elevated creatine kinase level Status: Acute Assessment and Plan 1. Encephalopathy due to intoxication, polysubstance abuse: Resolved. Patient counseled regarding illicit drug use. Discharge to [facility]. Monitor on telemetry. 2. Diabetes: Monitor accuchecks and cover with sliding scale insulin. Tramadol for neuropathy, ct gabapentin 3. GERD: PPI. 4. Hypertension: Continue HCTZ. 5. Elevated serum CK: Improved with IV fluids. 6. Lactic acidosis: Resolved. 7. Hyperammonemia: Improving on lactulose. History of hepatitis C. Normal sonogram. Patient advised outpatient follow-up with GI 8. Right lung nodule. Rpt CT in 12 mos DVT prophylaxis: Heparin. Med rec by occupational health technician Planning Discharge patient to home Condition on discharge: Improved Regular Diet as tolerated Ad Rosemarie activity no driving Rx written: Lactulose Follow-up with primary care physician We will confirm med rec when updated Melchor Waggoner MD Mar 07, 2017 10:46
--- NOTE | 2017-03-07 11:58 | RADRPT ---
EXAM DATE/TIME: 03/07/2017 09:49 [facility] COMPARISON: No previous studies available for comparison. INDICATIONS : Cirrhosis. MEDICAL HISTORY : Hypercholesterolemia. Hypertension. Gastroesophageal reflux disease. Polysubstance dependence. Bipola r disorder. Depression. Anxiety. Anticoagulant therapy. Sleep apnea. Diabetes. Hep C. SURGICAL HISTORY : Right hand surgery. Right retina repair. ENCOUNTER: Initial ACUITY: 1 day PAIN SCORE: 0/10 LOCATION: Bilateral upper quadrant MEASUREMENTS: LIVER: 16.0 cm length COMMON DUCT: 5 mm RIGHT KIDNEY: 11.6 x 5.5 x 4.9 cm SPLEEN: 7.1 cm length FINDINGS: LIVER: Normal echotexture without focal lesion or ductal dilatation. The portal vein demonstrates hepatoped al flow. The liver borders appear smooth without nodularity. COMMON DUCT: No intraluminal mass or stone visualized. GALLBLADDER: Contains no stones, demonstrates no wall thickening or pericholecystic fluid. PANCREAS: The visualized portions are within normal limits. RIGHT KIDNEY: There is a well-circumscribed simple cyst within the upper pole measuring 2.8 x 2.4 x 2.7 cm. SPLEEN: No focal lesion. CONCLUSION: Normal appearance of the liver. No evidence of mass or cirrhotic morphology. Benign right renal cyst. . Isaura Patel MD on March 07, 2017 at 11:54 Board Certified Radiologist. This report was verified electronically.
[2017-03-07 12:42] VITALS: BP 132/79; PULSE 80; RESP 18; TEMP 97.7; O2SAT 98
[2017-03-07] MEDS ORDERED: NOVO7030P2 SQ (14:26)
[2017-03-07 16:35] VITALS: BP 155/80; PULSE 78; RESP 18; TEMP 98.3; O2SAT 98
[2017-03-07 19:49] VITALS: BP 143/76; PULSE 73; RESP 17; TEMP 98.4; O2SAT 98
[2017-03-07 23:22] VITALS: BP 145/85; PULSE 72; RESP 18; TEMP 98.1; O2SAT 97
[2017-03-08] MEDS: HEPARIN SODIUM - SQ 10,000 UNITS/ML VIAL SQ SCH ×2 (00:57→09:15)
[2017-03-08] MEDS: INSULIN ASPART SUPPLEMENTAL SCALE SQ SCH ×2 (00:58→09:14)
[2017-03-08 03:41] VITALS: BP 142/77; PULSE 77; RESP 17; TEMP 98.2; O2SAT 96
[2017-03-08 08:32] VITALS: BP 145/90; PULSE 73; RESP 18; TEMP 97.6; O2SAT 99
[2017-03-08] MEDS: LACTULOSE SYRUP 20 GM/30 ML CUP PO SCH (09:14)
[2017-03-08] MEDS: traMADol HCL 50 MG TAB PO PRN (09:14)
[2017-03-08] MEDS: HYDROCHLOROTHIAZIDE 12.5 MG CAP PO SCH (09:14)
[2017-03-08] MEDS: DOCUSATE SODIUM 50 MG/SENNA 8.6 MG TAB PO SCH (09:15)
--- NOTE | 2017-03-08 10:33 | HHI.PR ---
Objective Vitals Vital Signs Date Time Temp Pulse Resp B/P (MAP) Pulse Ox O2 Delivery O2 Flow Rate FiO2 03/08/17 08:32 97.6 73 18 145/90 (108) 99 03/08/17 03:41 98.2 77 17 142/77 (98) 96 03/07/17 23:22 98.1 72 18 145/85 (105) 97 03/07/17 19:49 98.4 73 17 143/76 (98) 98 03/07/17 16:35 98.3 78 18 155/80 (105) 98 03/07/17 12:42 97.7 80 18 132/79 (96) 98 I/O 03/07/17 03/07/17 03/07/17 03/08/17 03/08/17 03/08/17 07:00 15:00 23:00 07:00 15:00 23:00 Intake Total 960 ml Output Total 475 ml 500 ml Balance -475 ml 460 ml Intake Oral 960 ml Output Urine Total 475 ml 500 ml # Voids 6 Result Diagram: 03/06/1742003/06/17420 Objective Remarks GENERAL: This is a well-nourished, well-developed patient, in no apparent distress. SKIN: No rashes, ecchymoses or lesions. Cool and dry. CARDIOVASCULAR: Regular rate and rhythm without murmurs, gallops, or rubs. RESPIRATORY: Clear to auscultation. Breath sounds equal bilaterally. No wheezes , rales, or rhonchi. GASTROINTESTINAL: Abdomen soft, non-tender, nondistended. No guarding. MUSCULOSKELETAL: Extremities without clubbing, cyanosis, or edema. No joint tenderness, effusion, or edema noted. No calf tenderness. NEUROLOGICAL: Awake and alert. Oriented nonfocal Procedures none A/P Problem List: (1) Lactic acidosis ICD Code: E87.2 - Acidosis (2) Hyperammonemia ICD Code: E72.20 - Disorder of urea cycle metabolism, unspecified (3) Alcohol abuse ICD Code: F10.10 - Alcohol abuse, uncomplicated Status: Acute (4) Substance induced mood disorder ICD Code: F19.94 - Substance induced mood disorder Status: Acute (5) Cocaine abuse, unspecified ICD Code: F14.10 - Cocaine abuse, uncomplicated Status: Acute (6) Polysubstance dependence ICD Code: F19.20 - Other psychoactive substance dependence, uncomplicated Status: Chronic (7) Alcohol abuse with intoxication ICD Code: F10.129 - Alcohol abuse with intoxication, unspecified (8) Hypertension ICD Code: I10 - Hypertension Status: Chronic (9) Diabetes ICD Code: E11.9 - Diabetes mellitus Status: Chronic (10) Elevated creatine kinase level ICD Code: R74.8 - Elevated creatine kinase level Status: Acute Assessment and Plan 1. Encephalopathy due to intoxication, polysubstance abuse: Resolved. Patient counseled regarding illicit drug use. Discharge to [facility]. Monitor on telemetry. 2. Diabetes: Monitor accuchecks and cover with sliding scale insulin. Tramadol for neuropathy, ct gabapentin 3. GERD: PPI. 4. Hypertension: Continue HCTZ. 5. Elevated serum CK: Improved with IV fluids. 6. Lactic acidosis: Resolved. 7. Hyperammonemia: Improving on lactulose. History of hepatitis C. Normal sonogram. Patient advised outpatient follow-up with GI 8. Right lung nodule. Rpt CT in 12 mos DVT prophylaxis: Heparin. Med rec by fitter placer Planning Discharge patient to home Condition on discharge: Improved Regular Diet as tolerated Ad Rosemarie activity no driving Rx written: Lactulose Follow-up with primary care physician We will confirm med rec when updated Melchor Waggoner MD Mar 08, 2017 10:33
== END 2017-03-08 14:48 | disposition left against medical advice (07) ==
LOC: NEPE 04:12 → NEDA 08:21 → NEPFCDU 13:39
PROVIDERS: ADMIT Internal Medicine; ATTEND Internal Medicine
DX: E87.2 Acidosis (principal); E72.20 Disorder of urea cycle metabolism, unspecified; F10.129 Alcohol abuse with intoxication, unspecified; F19.94 Other psychoactive substance use, unspecified with psychoactive substance-induced mood disorder; F60.2 Antisocial personality disorder; F14.10 Cocaine abuse, uncomplicated; G92 Toxic encephalopathy; E78.5 Hyperlipidemia, unspecified; B19.20 Unspecified viral hepatitis C without hepatic coma; E11.9 Type 2 diabetes mellitus without complications; R94.31 Abnormal electrocardiogram [ECG] [EKG]; I10 Essential (primary) hypertension; K21.9 Gastro-esophageal reflux disease without esophagitis; G62.9 Polyneuropathy, unspecified; G47.30 Sleep apnea, unspecified; Z72.0 Tobacco use; Z91.14 Patient's other noncompliance with medication regimen; Z79.4 Long term (current) use of insulin
CPT/HCPCS: 70450; 71045; 71250; 76705; 80053; 80307; 81001; 82140; 82550; 82552; 82948; 83605; 83735; 84100; 84443; 84484; 85025; 85610; 85730; 93005; 96360; 96361; 96372; 99285; G0378; J1644; J1815; J7030

== ENCOUNTER 2017-03-17 07:02 | Observation (INO) | payer OTHER ==
[~2017-03-17] VITALS: Ht 172.7 cm; Wt 79.0 kg
[~2017-03-17 07:02] MED LIST changes: +Lactulose Liq PO
--- NOTE | 2017-03-17 07:23 | PD ---
HPI Chief Complaint: Chest pain Time Seen by Provider: 07:23 Travel History International Travel<30 days: No Contact w/Intl Traveler<30days: No Traveled to known affect area: No History of Present Illness HPI 61-year-old male came to the emergency room with history of chest pain and shortness of breath after he did cocaine last night and yesterday. He also drinks 6 beers he said. Patient describes the pain in the center of his chest without any radiation. He says it is like a pressure. Currently it has been subsiding. He was brought in by EMS. Vital signs were relatively stable. Patient has been relapsed with cocaine abuse for past 1 year. He says he was clean for 5 years. He has been in the emergency room multiple times for intoxication and polysubstance abuse. He says he usually does not get chest pain after cocaine use. He has been noncompliant with his medications including his insulin. PFSH Past Medical History Narrative Medical List of his past medical, surgical, social and family history is reviewed from the nursing note. Hx Anticoagulant Therapy: Yes (ASPIRIN) Asthma: No Blood Disorders: No Anxiety: Yes Depression: Yes Heart Rhythm Problems: No Cancer: No Cardiovascular Problems: Yes High Cholesterol: Yes Chest Pain: Yes Congestive Heart Failure: No COPD: No Diabetes: Yes Diminished Hearing: No Endocrine: Yes Gastrointestinal Disorders: Yes GERD: Yes Genitourinary: No Hepatitis: Yes (C) Hypertension: Yes Immune Disorder: No Implanted Vascular Access Dvce: No Musculoskeletal: No Neurologic: No Psychiatric: Yes Reproductive: No Respiratory: No Immunizations Current: Yes Sleep Apnea: Yes (CPAP) Past Surgical History Abdominal Surgery: No Cardiac Surgery: No Endocrine Surgery: No Eye Surgery: Yes (RETINA SOCKET REPAIR) Genitourinary Surgery: No Gynecologic Surgery: No Thoracic Surgery: No Other Surgery: Yes (RIGHT HAND, RIGHT EYE) Social History Alcohol Use: Yes Tobacco Use: Yes Substance Use: Yes (marijuana occas., cocaine) Allergies-Medications (Allergen,Severity, Reaction): Coded Allergies: lisinopril (Verified Adverse Reaction, Intermediate, COUGH, 03/17/17) Comments List of his allergies reviewed from the nursing note Reported Meds & Prescriptions Reported Meds & Active Scripts Active Novolin 70-30 Inj (Insulin Human Isoph/Insulin Regular) 1,000 Unit/10 Ml Vial 40 Units SQ BID [Lactulose Liq] 30 ML Syrp 30 Ml PO DAILY Gnp Vitamin B-1 (Thiamine HCl) 100 Mg Tab 100 Mg PO DAILY Omeprazole 20 Mg Tab 20 Mg PO DAILY Aspirin EC (Aspirin) 81 Mg Tabdr 81 Mg PO DAILY Reported Quetiapine (Quetiapine Fumarate) 25 Mg Tab 25 Mg PO DAILY Gabapentin 600 Mg Tab 600 Mg PO BID Bupropion HCl 75 Mg Tab 150 Mg PO BID Hydrochlorothiazide 12.5 Mg Cap 12.5 Mg PO DAILY Ventolin Hfa 18 GM Inh (Albuterol Sulfate) 90 Mcg/Act Aer 2 Puff INH Q6H PRN Methocarbamol 750 Mg Tab 750 Mg PO HS Narrative Medication List of his home medications reviewed from the nursing note. Review of Systems Except as stated in HPI: all other systems reviewed are Neg Cardiovascular: Positive: Chest Pain or Discomfort Physical Exam Narrative GENERAL: Intoxicated but answering questions appropriately. Yawning and some slurred speech. No obvious distress SKIN: Focused skin assessment warm/dry. HEAD: Atraumatic. Normocephalic. EYES: Pupils equal and round. No scleral icterus. No injection or drainage. ENT: No nasal bleeding or discharge. Mucous membranes pink and moist. NECK: Trachea midline. No JVD. CARDIOVASCULAR: Regular rate and rhythm. No murmur appreciated. RESPIRATORY: No accessory muscle use. Clear to auscultation. Breath sounds equal bilaterally. GASTROINTESTINAL: Abdomen soft, non-tender, nondistended. Hepatic and splenic margins not palpable. MUSCULOSKELETAL: No obvious deformities. No clubbing. No cyanosis. No edema. NEUROLOGICAL: Mild intoxication, yawning but answering questions. No obvious cranial nerve deficits. Motor grossly within normal limits. Slurred speech. PSYCHIATRIC: Appropriate mood and affect; insight and judgment normal. Data Data Last Documented VS Orders Orders Electrocardiogram (03/17/17 07:35) Basic Metabolic Panel (Bmp) (03/17/17 07:35) Complete Blood Count With Diff (03/17/17 07:35) Magnesium (Mg) (03/17/17 07:35) Prothrombin Time / Inr (Pt) (03/17/17 07:35) Troponin I (03/17/17 07:35) Chest, Single Ap (03/17/17 07:35) Ecg Monitoring (03/17/17 07:35) Bilateral Bp Monitoring (03/17/17 07:35) Iv Access Insert/Monitor (03/17/17 07:35) Oximetry (03/17/17 07:35) Oxygen Administration (03/17/17 07:35) Aspirin Chew (Aspirin Chew) (03/17/17 07:45) Sodium Chloride 0.9% Flush (Ns Flush) (03/17/17 07:45) Alcohol (Ethanol) (03/17/17 07:35) Sodium Chlorid 0.9% 500 Ml Inj (Ns 500 M (03/17/17 09:00) Admit Order (Ed Use Only) (03/17/17 08:55) Labs Laboratory Tests Test 03/17/17 07:40 White Blood Count 7.6 TH/MM3 Red Blood Count 4.92 MIL/MM3 Hemoglobin 14.4 GM/DL Hematocrit 42.2 % Mean Corpuscular Volume 85.7 FL Mean Corpuscular Hemoglobin 29.3 PG Mean Corpuscular Hemoglobin Concent 34.2 % Red Cell Distribution Width 14.4 % Platelet Count 297 TH/MM3 Mean Platelet Volume 7.1 FL Neutrophils (%) (Auto) 62.3 % Lymphocytes (%) (Auto) 26.1 % Monocytes (%) (Auto) 7.7 % Eosinophils (%) (Auto) 3.2 % Basophils (%) (Auto) 0.7 % Neutrophils # (Auto) 4.7 TH/MM3 Lymphocytes # (Auto) 2.0 TH/MM3 Monocytes # (Auto) 0.6 TH/MM3 Eosinophils # (Auto) 0.2 TH/MM3 Basophils # (Auto) 0.1 TH/MM3 CBC Comment DIFF FINAL Differential Comment Prothrombin Time 10.9 SEC Prothromb Time International Ratio 1.1 RATIO Blood Urea Nitrogen 9 MG/DL Creatinine 0.99 MG/DL Random Glucose 228 MG/DL Calcium Level 8.1 MG/DL Magnesium Level 2.0 MG/DL Sodium Level 138 MEQ/L Potassium Level 3.7 MEQ/L Chloride Level 104 MEQ/L Carbon Dioxide Level 26.8 MEQ/L Anion Gap 7 MEQ/L Estimat Glomerular Filtration Rate 93 ML/MIN Troponin I 0.05 NG/ML Ethyl Alcohol Level 6 MG/DL [facility] Medical Decision Making Medical Screen Exam Complete: Yes Emergency Medical Condition: Yes Medical Record Reviewed: Yes Interpretation(s) Twelve-lead EKG was reviewed by me. Normal sinus rhythm, normal axis, nonspecific ST-T wave changes. Heart rate of 99 bpm. Differential Diagnosis Cocaine induced chest pain, ACS, non-STEMI Narrative Course 8:54 AM patient has not had a stress test so far. He has enough risk factors including noncompliance with his diabetes and hypertension. Blood test results are back and within acceptable limit. Patient does have some hyperglycemia and have ordered 500 cc of IV fluid bolus. I will admit him to the chest pain center to be seen by guard entrance registrar and ruled out. Procedures EKG Prior to Arrival: No Diagnosis Primary Impression: Chest pain Qualified Codes: R07.9 - Chest pain, unspecified Additional Impressions: Cocaine abuse History of medication noncompliance Admitting Information Admitting Physician Requests: Observation Christin Palomares MD Mar 17, 2017 07:23
[2017-03-17 07:25] VITALS: BP 166/93; PULSE 100; RESP 16; TEMP 99.2; O2SAT 98
[2017-03-17] MEDS ORDERED: QUET1TAB7 PO (07:30)
[2017-03-17 07:34] VITALS: BP 166/93; PULSE 105; RESP 16; O2SAT 97
[2017-03-17] MEDS ORDERED: ASPIRIN 81 MG CHEW TAB PO ONE (07:45)
[2017-03-17] MEDS ORDERED: SODIUM CHLORIDE 0.9% FLUSH 10 ML FLUSH IVF PRN (07:45)
--- NOTE | 2017-03-17 07:55 | RADRPT ---
EXAM DATE/TIME: 03/17/2017 07:39 [facility] COMPARISON: CHEST SINGLE AP, March 05, 2017, 4:35. INDICATIONS : Chest and upper abdominal pain, short of breath MEDICAL HISTORY : Hypertension. Diabetes mellitus type II. Hepatitis C. SURGICAL HISTORY : None. ENCOUNTER: Initial ACUITY: 2 days PAIN SCORE: 10/10 LOCATION: Bilateral chest FINDINGS: A single view of the chest demonstrates the lungs to be symmetrically aerated without evidence of mas s, infiltrate or effusion. The cardiomediastinal contours are unremarkable. Osseous structures are intact. CONCLUSION: No acute disease. No significant change has occurred. Kam Jeffries MD on March 17, 2017 at 7:53 Board Certified Radiologist. This report was verified electronically.
[2017-03-17 08:00] LABS: AUTOMATED NEUTROPHIL # 4.7 TH/MM3 (1.8-7.7); BASOPHIL # 0.1 TH/MM3 (0-0.2); BASOPHIL % 0.7 % (0.0-2.0); EOSINOPHIL # 0.2 TH/MM3 (0-0.4); EOSINOPHIL % 3.2 % (0.0-4.0); HEMATOCRIT 42.2 % (39.0-51.0); HEMOGLOBIN 14.4 GM/DL (13.0-17.0); LYMPH % 26.1 % (9.0-44.0); MEAN CELL VOLUME 85.7 FL (80.0-100.0); MEAN CORPUSCULAR HEMOGLOBIN 29.3 PG (27.0-34.0); MEAN CORPUSCULAR HGB CONC 34.2 % (32.0-36.0); MEAN PLATELET VOLUME 7.1 FL (7.0-11.0); MONO % 7.7 % (0.0-8.0); MONOCYTE # 0.6 TH/MM3 (0-0.9); NEUT % 62.3 % (16.0-70.0); PLATELET COUNT 297 TH/MM3 (150-450); RED BLOOD COUNT 4.92 MIL/MM3 (4.50-5.90); RED CELL DISTRIBUTION WIDTH 14.4 % (11.6-17.2); WHITE BLOOD COUNT 7.6 TH/MM3 (4.0-11.0)
[2017-03-17 08:04] LABS: INTERNATIONAL NORMALIZED RATIO 1.1 RATIO; PROTHROMBIN TIME - PATIENT 10.9 SEC (9.8-11.6)
[2017-03-17 08:24] LABS: BICARBONATE 26.8 MEQ/L (21.0-32.0); CALCIUM 8.1 MG/DL (8.5-10.1); CREATININE 0.99 MG/DL (0.60-1.30)
[2017-03-17 08:25] LABS: TROPONIN I 0.05 NG/ML (0.02-0.05)
[2017-03-17] MEDS ORDERED: SODIUM CHLORID 0.9% 500 ML INJ 500 ML IV ONE (09:00)
[2017-03-17 09:13] VITALS: BP 166/79; PULSE 93; RESP 14; O2SAT 98
[2017-03-17] MEDS ORDERED: DEXTROSE 50% IN WATER 50 ML VIAL(D50) IV PUSH PRN (09:45)
[2017-03-17] MEDS ORDERED: ACETAMINOPHEN 500 MG CPLT PO PRN (09:45)
[2017-03-17] MEDS ORDERED: LORazepam 2 MG TAB PO PRN (09:45)
[2017-03-17] MEDS ORDERED: PANTOPRAZOLE SOD 40 MG DELAYED RELEASE TAB PO SCH (09:45)
[2017-03-17] MEDS ORDERED: FLUMAZENIL 0.5 MG/5 ML VIAL IV PUSH PRN (09:45)
[2017-03-17] MEDS ORDERED: LORazepam 2 MG/ML VIAL IV PUSH PRN ×4 (09:45)
[2017-03-17] MEDS ORDERED: amLODIPine BESYLATE 5 MG TAB PO SCH (09:45)
[2017-03-17] MEDS ORDERED: ACETAMINOPHEN/HYDROcodone 325 MG/7.5 MG TAB PO PRN (09:45)
[2017-03-17] MEDS ORDERED: ONDANSETRON HCL 4 MG/2 ML VIAL IV PUSH PRN (09:45)
[2017-03-17] MEDS ORDERED: LORazepam 1 MG TAB PO PRN (09:45)
[2017-03-17] MEDS ORDERED: GLUCAGON 1 MG/ML VIAL OTHER PRN (09:45)
[2017-03-17 10:10] VITALS: PULSE 77
[2017-03-17 10:33] VITALS: BP 170/81; PULSE 83; RESP 18; TEMP 98.7; O2SAT 99
--- NOTE | 2017-03-17 10:49 | HHI.HP ---
[facility] Primary Care Physician Ap Cope MD Chief Complaint Chest Pain History of Present Illness This is a 61-year-old male that presents to ED via E VAC with a complaint of waking up about 5:00 this morning with a central sharp chest discomfort rated as 7 out of 10. He states gives subluminal nitroglycerin which is helped the discomfort down to about a 5 out of 10. Denies shortness breath, nausea, or diaphoresis with it. Patient certain movements seem to worsen the symptoms. Denies prior history of heart disease. Denies ever having a cardiac catheterization. States he has had a stress test and then states "don't put on the treadmill again." States he attempted to perform was able to do that and they had to do a chemical stress test. He states that was 2 years ago in [place] and that it was okay. Mixed using cocaine daily but states it never causes chest pain. States he smokes crack cocaine. He also drinks on average a sixpack of beer per day. Denies ever having DTs. Last alcohol beverage was about 2:00 this morning which was about 8 hours ago. Denies recent illness. Denies fevers or chills. Review of Systems General: Patient denies fevers, chills recent, and recent travel HEENT: Patient denies headache, sore throat, difficulty swallowing. Cardiovascular: Has the chest discomfort as mentioned above. Denies sensation of heart beating rapidly or irregularly. No syncope. Denies diaphoresis. Respiratory: Denies shortness of breath or inspirational chest discomfort. Denies coughing wheezing or hemoptysis. GI: Patient denies nausea, vomiting, diarrhea, abdominal pain, bloody stools. Musculoskeletal: Patient denies joint pain or edema. Denies calf pain or edema. Neurovascular: Patient denies numbness, tingling, weakness in extremities. Denies headache. Endocrine: Denies polyuria and polydipsia. Hematologic: Denies easy bruising. Skin: Denies rash or itching. Past Family Social History Allergies: Coded Allergies: lisinopril (Verified Adverse Reaction, Intermediate, COUGH, 03/17/17) Past Medical History Diabetes which is not compliant with. States he has inspiratory home but does not use it. Hyperlipidemia but states he has not taken his cholesterol medicine a months. Bipolar disorder, schizoaffective disorder, substance abuse , hypertension, tobacco abuse, alcohol abuse.. Denies known coronary artery disease. Past Surgical History Right hand and right orbit. Reported Medications Reported Meds & Active Scripts Active Novolin 70-30 Inj (Insulin Human Isoph/Insulin Regular) 1,000 Unit/10 Ml Vial 40 Units SQ BID [Lactulose Liq] 30 ML Syrp 30 Ml PO DAILY Gnp Vitamin B-1 (Thiamine HCl) 100 Mg Tab 100 Mg PO DAILY Omeprazole 20 Mg Tab 20 Mg PO DAILY Aspirin EC (Aspirin) 81 Mg Tabdr 81 Mg PO DAILY Reported Quetiapine (Quetiapine Fumarate) 25 Mg Tab 25 Mg PO DAILY Gabapentin 600 Mg Tab 600 Mg PO BID Bupropion HCl 75 Mg Tab 150 Mg PO BID Hydrochlorothiazide 12.5 Mg Cap 12.5 Mg PO DAILY Ventolin Hfa 18 GM Inh (Albuterol Sulfate) 90 Mcg/Act Aer 2 Puff INH Q6H PRN Methocarbamol 750 Mg Tab 750 Mg PO HS Active Ordered Medications Current Medications Medications (Trade) Dose Ordered Sig/Salas Route Start Time Stop Time Status Last Admin (NS Flush) 2 ml UNSCH PRN IVF 03/17/17 07:45 (Tylenol) 500 mg Q4H PRN PO 03/17/17 09:45 ([place] 7.5-325 Mg) 1 tab Q4H PRN PO 03/17/17 09:45 (Zofran Inj) 4 mg Q6H PRN IV PUSH 03/17/17 09:45 (Protonix) 40 mg DAILY PO 03/17/17 09:45 (Aspirin) 325 mg DAILY PO 03/18/17 09:00 (D50w (Vial) Inj) 50 ml UNSCH PRN IV PUSH 03/17/17 09:45 (Glucagon Inj) 1 mg UNSCH PRN OTHER 03/17/17 09:45 (NovoLOG SUPPLEMENTAL SCALE) 1 ACHS SLIDING SCALE SQ 03/17/17 12:00 (Romazicon Inj) 0.2 mg Q1M PRN IV PUSH 03/17/17 09:45 (Ativan) 1 mg Q4H PRN PO 03/17/17 09:45 (Ativan Inj) 1 mg Q4H PRN IV PUSH 03/17/17 09:45 (Ativan) 2 mg Q2H PRN PO 03/17/17 09:45 (Ativan Inj) 2 mg Q2H PRN IV PUSH 03/17/17 09:45 (Ativan Inj) 2 mg Q1H PRN IV PUSH 03/17/17 09:45 (Ativan Inj) 2 mg Q15M PRN IV PUSH 03/17/17 09:45 (Norvasc) 5 mg DAILY PO 03/17/17 09:45 Family History States that his father at age 36 of myocardial infarction his mother at 63 of myocardial infarction. Social History Smokes one pack of cigarettes daily. Admits to smoking crack cocaine daily. As an average a 6 pack of beer per day. Physical Exam Vital Signs Vital Signs Date Time Temp Pulse Resp B/P (MAP) Pulse Ox O2 Delivery O2 Flow Rate FiO2 03/17/17 10:33 98.7 83 18 170/81 (110) 99 03/17/17 10:13 03/17/17 09:13 93 14 166/79 (108) 98 Room Air 03/17/17 07:34 105 16 166/93 (117) 97 Room Air 03/17/17 07:25 99.2 100 16 166/93 (117) 98 Physical Exam GENERAL: This is a well-nourished, well-developed patient, in no apparent distress. Patient speaks in clear complete sentences. Patient is pleasant. HEENT: Head is atraumatic and normocephalic. Neck is supple without lymphadenopathy and trachea is midline. No JVD or carotid bruits. CARDIOVASCULAR: Regular rate and rhythm without murmurs, gallops, or rubs. RESPIRATORY: Clear to auscultation. Breath sounds equal bilaterally. No wheezes , rales, or rhonchi. Chest wall is tender. No use of accessory muscles. GASTROINTESTINAL: Abdomen is nontender, nondistended. Abdomen soft. No obvious pulsatile mass or bruit. No CVA tenderness. Strong femoral pulses bilaterally. Normal bowel sounds in all quadrants. MUSCULOSKELETAL: Patient is moving upper and lower extremities freely. No calf tenderness or edema, no Homans sign. Strong pulses in upper and lower extremities. NEUROLOGICAL: Patient is alert and oriented. Cranial nerves 2-12 are grossly intact. No focal deficits and speech is clear. SKIN: No rash and turgor is normal. Laboratory Laboratory Tests Test 03/17/17 07:40 White Blood Count 7.6 Red Blood Count 4.92 Hemoglobin 14.4 Hematocrit 42.2 Mean Corpuscular Volume 85.7 Mean Corpuscular Hemoglobin 29.3 Mean Corpuscular Hemoglobin Concent 34.2 Red Cell Distribution Width 14.4 Platelet Count 297 Mean Platelet Volume 7.1 Neutrophils (%) (Auto) 62.3 Lymphocytes (%) (Auto) 26.1 Monocytes (%) (Auto) 7.7 Eosinophils (%) (Auto) 3.2 Basophils (%) (Auto) 0.7 Neutrophils # (Auto) 4.7 Lymphocytes # (Auto) 2.0 Monocytes # (Auto) 0.6 Eosinophils # (Auto) 0.2 Basophils # (Auto) 0.1 CBC Comment DIFF FINAL Differential Comment Prothrombin Time 10.9 Prothromb Time International Ratio 1.1 Blood Urea Nitrogen 9 Creatinine 0.99 Random Glucose 228 Calcium Level 8.1 Magnesium Level 2.0 Sodium Level 138 Potassium Level 3.7 Chloride Level 104 Carbon Dioxide Level 26.8 Anion Gap 7 Estimat Glomerular Filtration Rate 93 Troponin I 0.05 Ethyl Alcohol Level 6 Result Diagram: 03/17/1740 03/17/1740 Imaging Last 48 hours Impressions Chest X-Ray 03/17/1735 Signed Impressions: Service Date/Time: Friday, March 17, 2017 07:39 - CONCLUSION: No acute disease. No significant change has occurred. Kam Jeffries MD Course Initial EKG sinus rhythm without significant ST segment depressions or elevation. Caprini VTE Risk Assessment Caprini VTE Risk Assessment: No/Low Risk (score <= 1) Caprini Risk Assessment Model Point Value = 1 Point Value = 2 Point Value = 3 Point Value = 5 Age 41-60 Minor surgery BMI > 25 kg/m2 Swollen legs Varicose veins or History of unexplained or recurrent spontaneous Oral contraceptives or hormone replacement Sepsis (< 1 month) Serious lung disease, including pneumonia (< 1 month) Abnormal pulmonary function Acute myocardial infarction Congestive heart failure (< 1 month) History of inflammatory bowel disease Medical patient at bed rest Age 61-74 Arthroscopic surgery Major open surgery (> 45 min) Laparoscopic surgery (> 45 min) Malignancy Confined to bed (> 72 hours) Immobilizing plaster cast Central venous access Age >= 75 History of VTE Family history of VTE Factor V Leiden Prothrombin [id number] Lupus anticoagulant Anticardiolipin antibodies Elevated serum homocysteine Heparin-induced thrombocytopenia Other congenital or acquired thrombophilia Stroke (< 1 month) Elective arthroplasty Hip, pelvis, or leg fracture Acute spinal cord injury (< 1 month) Prophylaxis Regimen Total Risk Factor Score Risk Level Prophylaxis Regimen 0-1 Low Early ambulation 2 Moderate Order ONE of the following: *Sequential Compression Device (SCD) *Heparin 5000 units SQ BID 3-4 Higher Order ONE of the following medications: *Heparin 5000 units SQ TID *Enoxaparin/Lovenox 40 mg SQ daily (WT < 150 kg, CrCl > 30 mL/min) *Enoxaparin/Lovenox 30 mg SQ daily (WT < 150 kg, CrCl > 10-29 mL/min) *Enoxaparin/Lovenox 30 mg SQ BID (WT < 150 kg, CrCl > 30 mL/min) AND/OR *Sequential Compression Device (SCD) 5 or more Highest Order ONE of the following medications: *Heparin 5000 units SQ TID (Preferred with Epidurals) *Enoxaparin/Lovenox 40 mg SQ daily (WT < 150 kg, CrCl > 30 mL/min) *Enoxaparin/Lovenox 30 mg SQ daily (WT < 150 kg, CrCl > 10-29 mL/min) *Enoxaparin/Lovenox 30 mg SQ BID (WT < 150 kg, CrCl > 30 mL/min) AND *Sequential Compression Device (SCD) Assessment and Plan Assessment and Plan * Chest pain: Patient will continue to have serial cardiac enzymes and EKGs for ruling out purposes. He'll be seen by Dr. Luna cardiology in the chest pain center. Patient's admission would change if his troponins were to bump. He will have a chemical stress test if he rules out. The stress test nonischemic he would then be discharged home with instructions to follow-up with PCP and return to ED for interval issues. Quit smoking. Quit cocaine abuse. Quit alcohol abuse. Return to ED for interval issues. * Hypertension: We'll give a dose amlodipine. His blood pressure was in the 160s while in the ED. * Hyperlipidemia: Patient states he has been noncompliant for months. He should start this again but should have liver function tests and have follow-up with PCP regarding this. * Diabetes: Patient has been noncompliant as well. States he has medication at home but he chooses not to take it. He'll be on sliding scale insulin coverage while the chest pain center. He should resume medication discharge and follow diabetic diet. * Tobacco abuse: Patient has been counseled on importance of smoking cessation. * Cocaine abuse: Patient is counseled for some never using cocaine again. * Alcohol abuse: Patient has been counseled importance of being treatment for his alcohol problem. * Schizoaffective disorder: Patient will resume his medications. * Bipolar disorder: Patient will resume his medications. Patient is stable time. He is agreeable to this plan. Romeo Shah Mar 17, 2017 10:49
[2017-03-17 11:27] LABS: TROPONIN I 0.06 NG/ML (0.02-0.05)
[2017-03-17] MEDS ORDERED: INSULIN ASPART SUPPLEMENTAL SCALE SQ SCH (12:00)
--- NOTE | 2017-03-17 12:57 | EKG ---
Date Performed: 03/17/2017 Time Performed: 10:38:20 PTAGE: 61 years EKG: Sinus rhythm NONSPECIFIC ST ELEVATION BORDERLINE ECG Since PREVIOUS TRACING , no significant change noted PREVIOUS TRACIN03/17/2017 07.21 DOCTOR: Consuelo Luna Interpretating Date/Time 03/17/2017 12:55:32
[2017-03-17 13:27] VITALS: BP 171/79; PULSE 62; RESP 18; TEMP 98.7; O2SAT 100
[2017-03-17] MEDS ORDERED: amLODIPine BESYLATE 5 MG TAB PO ONE (14:00)
[2017-03-17] MEDS ORDERED: cloNIDine HCL 0.1 MG TAB PO PRN (14:00)
[2017-03-17] MEDS ORDERED: SODIUM CHLOR 0.9% 1000 ML INJ 1,000 ML IV SCH (14:05)
[2017-03-17] MEDS ORDERED: NITROGLYCERIN 2% OINT 1 GM PACKET TOPICAL SCH (14:15)
--- NOTE | 2017-03-17 14:21 | HHI.PR ---
Subjective Remarks in no acute distress. says that his chest pain is better. Objective Vitals Vital Signs Date Time Temp Pulse Resp B/P (MAP) Pulse Ox O2 Delivery O2 Flow Rate FiO2 03/17/17 13:27 98.7 62 18 171/79 (109) 100 03/17/17 10:33 98.7 83 18 170/81 (110) 99 03/17/17 10:13 03/17/17 10:10 77 03/17/17 09:13 93 14 166/79 (108) 98 Room Air 03/17/17 07:34 105 16 166/93 (117) 97 Room Air 03/17/17 07:25 99.2 100 16 166/93 (117) 98 Result Diagram: 03/17/17 0740 03/17/17 0740 Imaging Last Impressions Chest X-Ray 03/17/17 0735 Signed Impressions: Service Date/Time: Friday, March 17, 2017 07:39 - CONCLUSION: No acute disease. No significant change has occurred. Kam Jeffries MD Objective Remarks GENERAL: This is a well-nourished, well-developed patient, in no apparent distress. CARDIOVASCULAR: Regular rate and regular rhythm without murmurs, gallops, or rubs. RESPIRATORY: Clear to auscultation. Breath sounds equal bilaterally. No wheezes , rales, or rhonchi. GASTROINTESTINAL: Abdomen soft, non-tender, nondistended. Normal, active bowel sounds MUSCULOSKELETAL: Extremities without clubbing, cyanosis, or edema. NEURO: Alert & Oriented x4 to person, place, time, situation. Moves all ext x4 Medications and IVs Inpatient Medications Acetaminophen (Tylenol) 500 mg Q4H PRN PO HEADACHE; Start 03/17/17 at 09:45 Acetaminophen/ Hydrocodone Bitart ([place] 7.5-325 Mg) 1 tab Q4H PRN PO PAIN SCALE 1 TO 7; Start 03/17/17 at 09:45 Amlodipine Besylate (Norvasc) 5 mg NOW ONCE PO ; Start 03/17/17 at 14:00; Stop 03/17/17 at 14:01; Status UNV Aspirin (Aspirin Chew) 162 mg ONCE ONCE PO ; Start 03/17/17 at 07:45; Stop at 07:46; Status DC Aspirin (Aspirin) 325 mg DAILY PO ; Start 03/18/17 at 09:00 Clonidine (Catapres) 0.1 mg Q4H PRN PO SYS BP GREATER THAN 160 MMHG; Start 03/17 at 14:00; Status UNV Dextrose (D50w (Vial) Inj) 50 ml UNSCH PRN IV PUSH HYPOGLYCEMIA-SEE COMMENTS; Start 03/17/17 at 09:45 Flumazenil (Romazicon Inj) 0.2 mg Q1M PRN IV PUSH SEE LABEL COMMENTS; Start 03/17/17 at 09:45 Glucagon (Glucagon Inj) 1 mg UNSCH PRN OTHER HYPOGLYCEMIA-SEE COMMENTS; Start 03/17/17 at 09:45 Insulin Aspart (NovoLOG SUPPLEMENTAL SCALE) 1 ACHS SLIDING SCALE SQ ; Start 03/17/17 at 12:00 Lorazepam (Ativan Inj) 2 mg Q15M PRN IV PUSH CIWA > 20; Start 03/17/17 at 09:45 Lorazepam (Ativan) 2 mg Q2H PRN PO CIWA 11-14; Start 03/17/17 at 09:45 Nitroglycerin (Nitroglycerin 2% Oint) 1 inch Q8HR TOPICAL ; Start 03/17/17 at 14: 15; Status UNV Ondansetron HCl (Zofran Inj) 4 mg Q6H PRN IV PUSH NAUSEA; Start 03/17/17 at 09: 45 Pantoprazole Sodium (Protonix) 40 mg DAILY PO Last administered on 03/17/17at 11: 53; Start 03/17/17 at 09:45 Sodium Chloride 1,000 ml @ 125 mls/hr Q8H IV ; Start 03/17/17 at 14:05; Stop 03/17/17 at 22:04; Status UNV Sodium Chloride (NS Flush) 2 ml UNSCH PRN IVF FLUSH AFTER USING IV ACCESS; Start 03/17/17 at 07:45 A/P Assessment and Plan A/P - chest pain with mildly elevated troponin and cocaine abuse started on aspirin and nitro- no BB due to cocaine abuse- cardiology consulted ; possible cath today. -hypertension; on Amlodipine- will monitor and adjust the regimen as needed. -diabetes mellitus; accu-check with SSI -bipolar disorder; resume home meds upon discharge. -poly-substance abuse; counselled on cessation. Discharge Planning when cleared by cardiology. Lia Min MD Mar 17, 2017 14:21
--- NOTE | 2017-03-17 14:29 | HHI.HP ---
HPI Primary Care Physician Ap Cope MD History of Present Illness Is a 61-year-old male who presents to the emergency department this morning with symptoms of chest pain. He has prior history of diabetes hypertension substance-abuse schizoaffective disorder tobacco abuse alcohol abuse and hyperlipidemia. He has never had a cardiac catheterization but he states about 2 years ago that he had a stress test which was reportedly unremarkable. He does smoke croak cocaine on a daily basis and also drinks a sixpack of beer daily. He was initially admitted to the chest pain center but he ruled in for troponin were consulted for further recommendations. Review of Systems Consitutional: DENIES: Fatigue, Fever, Chills, Weight gain, Weight loss Eyes: DENIES: Amaurosis Fugax, Change in vision HEENT: DENIES: Lightheadedness, Change in hearing Respiratory: DENIES: See HPI, Cough, Snoring, Shortness of breath, Wheezing, Sputum production Cardiovascular: COMPLAINS OF: Chest pain Gastrointestinal: DENIES: Nausea, Vomiting, Change in bowel habits, Reflux, Bloody stools, Melena Genitourinary: DENIES: Urinary incontinence, Difficulty voiding Integumentary: DENIES: Rash Neurologic: DENIES: Tingling or numbness, Memory problems, Poor Balance, Stroke symptoms Musculoskeletal: DENIES: Joint pain, Muscle pain, Limited range of motion, Back pain Psychiatric: DENIES: Anxiety, Depression, Sleep disturbances Hematologic: DENIES: Bruising tendencies, Bleeding tendencies Past Family Social History Allergies: Coded Allergies: lisinopril (Verified Adverse Reaction, Intermediate, COUGH, 03/17/17) Past Medical History Hypertension, hyperlipidemia, schizoaffective disorder, substance abuse, hypertension, tobacco abuse, alcohol abuse, hyperlipidemia Reported Medications Reported Meds & Active Scripts Active Novolin 70-30 Inj (Insulin Human Isoph/Insulin Regular) 1,000 Unit/10 Ml Vial 40 Units SQ BID [Lactulose Liq] 30 ML Syrp 30 Ml PO DAILY Gnp Vitamin B-1 (Thiamine HCl) 100 Mg Tab 100 Mg PO DAILY Omeprazole 20 Mg Tab 20 Mg PO DAILY Aspirin EC (Aspirin) 81 Mg Tabdr 81 Mg PO DAILY Reported Quetiapine (Quetiapine Fumarate) 25 Mg Tab 25 Mg PO DAILY Gabapentin 600 Mg Tab 600 Mg PO BID Bupropion HCl 75 Mg Tab 150 Mg PO BID Hydrochlorothiazide 12.5 Mg Cap 12.5 Mg PO DAILY Ventolin Hfa 18 GM Inh (Albuterol Sulfate) 90 Mcg/Act Aer 2 Puff INH Q6H PRN Methocarbamol 750 Mg Tab 750 Mg PO HS Active Ordered Medications Current Medications Medications (Trade) Dose Ordered Sig/[place] Route Start Time Stop Time Status Last Admin (NS Flush) 2 ml UNSCH PRN IVF 03/17/17 07:45 (Tylenol) 500 mg Q4H PRN PO 03/17/17 09:45 ([place] 7.5-325 Mg) 1 tab Q4H PRN PO 03/17/17 09:45 (Zofran Inj) 4 mg Q6H PRN IV PUSH 03/17/17 09:45 (Protonix) 40 mg DAILY PO 03/17/17 09:45 03/17/17 11:53 (Aspirin) 325 mg DAILY PO 03/18/17 09:00 (D50w (Vial) Inj) 50 ml UNSCH PRN IV PUSH 03/17/17 09:45 (Glucagon Inj) 1 mg UNSCH PRN OTHER 03/17/17 09:45 (NovoLOG SUPPLEMENTAL SCALE) 1 ACHS SLIDING SCALE SQ 03/17/17 12:00 (Romazicon Inj) 0.2 mg Q1M PRN IV PUSH 03/17/17 09:45 (Ativan) 1 mg Q4H PRN PO 03/17/17 09:45 (Ativan Inj) 1 mg Q4H PRN IV PUSH 03/17/17 09:45 (Ativan) 2 mg Q2H PRN PO 03/17/17 09:45 (Ativan Inj) 2 mg Q2H PRN IV PUSH 03/17/17 09:45 (Ativan Inj) 2 mg Q1H PRN IV PUSH 03/17/17 09:45 (Ativan Inj) 2 mg Q15M PRN IV PUSH 03/17/17 09:45 (Norvasc) 5 mg DAILY PO 03/17/17 09:45 03/17/17 11:53 (Catapres) 0.1 mg Q4H PRN PO 03/17/17 14:00 (Nitroglycerin 2% Oint) 1 inch Q8HR TOPICAL 03/17/17 14:15 Sodium Chloride 1,000 ml @ 125 mls/hr Q8H IV 03/17/17 14:05 03/17/17 22:04 Family History Denies any family history of early coronary disease or sudden cardiac Social History Reports crack cocaine use, tobacco abuse, alcohol abuse. Physical Exam Vital Signs Vital Signs Date Time Temp Pulse Resp B/P (MAP) Pulse Ox O2 Delivery O2 Flow Rate FiO2 03/17/17 13:27 98.7 62 18 171/79 (109) 100 03/17/17 10:33 98.7 83 18 170/81 (110) 99 03/17/17 10:13 03/17/17 10:10 77 03/17/17 09:13 93 14 166/79 (108) 98 Room Air 03/17/17 07:34 105 16 166/93 (117) 97 Room Air 03/17/17 07:25 99.2 100 16 166/93 (117) 98 Physical Exam GENERAL: SKIN: Warm and dry. HEAD: Normocephalic. EYES: No scleral icterus. No injection or drainage. NECK: Supple, trachea midline. No JVD or lymphadenopathy. CARDIOVASCULAR: Regular rate and rhythm without murmurs, gallops, or rubs. RESPIRATORY: Breath sounds equal bilaterally. No accessory muscle use. GASTROINTESTINAL: Abdomen soft, non-tender, nondistended. MUSCULOSKELETAL: No cyanosis, or edema. BACK: Nontender without obvious deformity. No CVA tenderness. Laboratory Laboratory Tests Test 03/17/17 07:40 03/17/17 10:30 White Blood Count 7.6 Red Blood Count 4.92 Hemoglobin 14.4 Hematocrit 42.2 Mean Corpuscular Volume 85.7 Mean Corpuscular Hemoglobin 29.3 Mean Corpuscular Hemoglobin Concent 34.2 Red Cell Distribution Width 14.4 Platelet Count 297 Mean Platelet Volume 7.1 Neutrophils (%) (Auto) 62.3 Lymphocytes (%) (Auto) 26.1 Monocytes (%) (Auto) 7.7 Eosinophils (%) (Auto) 3.2 Basophils (%) (Auto) 0.7 Neutrophils # (Auto) 4.7 Lymphocytes # (Auto) 2.0 Monocytes # (Auto) 0.6 Eosinophils # (Auto) 0.2 Basophils # (Auto) 0.1 CBC Comment DIFF FINAL Differential Comment Prothrombin Time 10.9 Prothromb Time International Ratio 1.1 Blood Urea Nitrogen 9 Creatinine 0.99 Random Glucose 228 Calcium Level 8.1 Magnesium Level 2.0 Sodium Level 138 Potassium Level 3.7 Chloride Level 104 Carbon Dioxide Level 26.8 Anion Gap 7 Estimat Glomerular Filtration Rate 93 Troponin I 0.05 0.06 Ethyl Alcohol Level 6 Total Creatine Kinase 694 Creatine Kinase MB 7.7 Creatine Kinase MB % 1.1 Result Diagram: 03/17/1740 03/17/17 0740 Imaging Last Impressions Chest X-Ray 03/17/17 0735 Signed Impressions: Service Date/Time: Friday, March 17, 2017 07:39 - CONCLUSION: No acute disease. No significant change has occurred. MD Shital Scott VTE Risk Assessment Shital VTE Risk Assessment: No/Low Risk (score <= 1) Caprini Risk Assessment Model Point Value = 1 Point Value = 2 Point Value = 3 Point Value = 5 Age 41-60 Minor surgery BMI > 25 kg/m2 Swollen legs Varicose veins or History of unexplained or recurrent spontaneous Oral contraceptives or hormone replacement Sepsis (< 1 month) Serious lung disease, including pneumonia (< 1 month) Abnormal pulmonary function Acute myocardial infarction Congestive heart failure (< 1 month) History of inflammatory bowel disease Medical patient at bed rest Age 61-74 Arthroscopic surgery Major open surgery (> 45 min) Laparoscopic surgery (> 45 min) Malignancy Confined to bed (> 72 hours) Immobilizing plaster cast Central venous access Age >= 75 History of VTE Family history of VTE Factor V Leiden Prothrombin [id number] Lupus anticoagulant Anticardiolipin antibodies Elevated serum homocysteine Heparin-induced thrombocytopenia Other congenital or acquired thrombophilia Stroke (< 1 month) Elective arthroplasty Hip, pelvis, or leg fracture Acute spinal cord injury (< 1 month) Prophylaxis Regimen Total Risk Factor Score Risk Level Prophylaxis Regimen 0-1 Low Early ambulation 2 Moderate Order ONE of the following: *Sequential Compression Device (SCD) *Heparin 5000 units SQ BID 3-4 Higher Order ONE of the following medications: *Heparin 5000 units SQ TID *Enoxaparin/Lovenox 40 mg SQ daily (WT < 150 kg, CrCl > 30 mL/min) *Enoxaparin/Lovenox 30 mg SQ daily (WT < 150 kg, CrCl > 10-29 mL/min) *Enoxaparin/Lovenox 30 mg SQ BID (WT < 150 kg, CrCl > 30 mL/min) AND/OR *Sequential Compression Device (SCD) 5 or more Highest Order ONE of the following medications: *Heparin 5000 units SQ TID (Preferred with Epidurals) *Enoxaparin/Lovenox 40 mg SQ daily (WT < 150 kg, CrCl > 30 mL/min) *Enoxaparin/Lovenox 30 mg SQ daily (WT < 150 kg, CrCl > 10-29 mL/min) *Enoxaparin/Lovenox 30 mg SQ BID (WT < 150 kg, CrCl > 30 mL/min) AND *Sequential Compression Device (SCD) Assessment and Plan Assessment and Plan Non-ST elevation myocardial infarction Patient has multiple cardiovascular risk factors now elevated troponin. Patient is not interested in proceeding with stress testing. For definitive diagnosis will proceed with cardiac catheterization. This may be demand mediated secondary to his hypertension and crack cocaine use. This should hopefully speed up this position. We can follow-up on a 2D echocardiogram. Avoid potential beta-blockade at this point due to recent cocaine use. He is currently n.p.o. We will proceed with cardiac catheterization, risk benefits alternatives discussed the patient is agreeable. Anton Hernandez MD Mar 17, 2017 14:29
[2017-03-17] MEDS ORDERED: MIDAZOLAM HCL 2 MG/2 ML VIAL ONE (14:45)
[2017-03-17] MEDS ORDERED: HEPARIN SODIUM - IV 10,000 UNITS/10 ML VIAL ONE (14:45)
[2017-03-17 15:08] LABS: TROPONIN I 0.05 NG/ML (0.02-0.05)
[2017-03-17] MEDS ORDERED: MISC INFORMATION XX ONE (15:30)
[2017-03-17] MEDS ORDERED: BACITRACIN OINT 0.9 GM PKT TOP ONE (15:30)
--- NOTE | 2017-03-17 15:34 | CATHPROC ---
[employer] HIS Report Study Information Study Number Admission Scheduled Start Study Start [id number] Mar 17 2017 8:57AM 03/17/2017 Mar 17 2017 2:39PM [place] [facility] Cardiac Catheterization Admit Source Facility Department Emergency department [facility] - [employer] Supervisor Physician and Clinical Staff Initial Anton Kruger Director Of Community Education Freddy Frederick,RADHA Other Ken Gunderson,RT(R) Recorder Monserrat Stubbs,RETAIL INVENTORY CONTROL CLERK TECH2 Scrub Jarvis GuerraRT(R) Procedures Performed Procedure Location (Site) Vessel Name Coronary Angiograms LCA Left Coronary Coronary Angiograms RCA Right Coronary Equipment Time Marketing Information Manager Description Size Mfg Part Number Used/Scraped TRANSDUCER, TRUWAVE [id number] 14:42 FREGOSO EM * Used W/STOCKCOCK *[id number] *[id number] *[id number] 14:42 Rapid Mobile PACK, CCL CUSTOM * Used *[id number] 14:42 Rapid Mobile SUPPORT, ARTERIAL ADULT 86535 *[id number] Used [id number] 14:42 [employer] Yard PACER PEN, SKIN DUAL W/ RULER * Used *[id number] BAND, RADIAL COMPRESSION TR [id number] 15:21 [employer] MEDICAL 29CM Used LARGE 29 *[id number] SHEATH, FR6 RADIAL PRELUDE 14:42 eBuddy FR 6 [id number] Used EASE 11CM [id number] 14:42 [employer]Buddy WIRE, EXCHANGE 260CM 3MMJ 260CM Used *[id number] 14:42 [employer]COMED OMNIPAQUE, 350 MG, 150ML 150ML [id number] Used [id number] 14:42 [employer] BLANKET,WARM AIR CCL * Used *[id number] History: Current Medications Medication Dosage/Unit Route Frequency Last Date/Time Taken Neurontin HCTZ History: Allergies Allergy Reaction lisinopril COUGH History: Risk Factors Family History of Hypertension Dyslipidemia Previous KS Previous Heart Failure Premature CAD Yes No No No No Prior Valve Prior PCI Prior CABG Surgery No No No Cerebrovascular Peripheral Artery Chronic Lung On Dialysis Diabetes Diabetes Therapy Disease Disease Disease No No No No Yes Insulin History: Symptoms/Diagnosis Selection Items Chest pain History: Stress Tests Stress or Imaging Studies Performed No History: Other Current Smoker Method Packs a Day Years Used Pack Years Yes Cigarettes 1 5 5 Labs Hgb (g/dl) Hct (%) WBC (l/cumm) Platelets (thousands) 11.60-17.00 35.00-51.00 4.00-11.00 150.00-450.00 14.4 42.4 7.6 297 Glucose (mg/dl) BUN (mg/dl) Creatinine (mg/dl) BUN:Creatinine (1:x) 74.00-106.00 7.00-18.00 0.50-1.30 10.00-20.00 228 9 0.9 10 Na (meq/l) K (meq/l) Cl (meq/l) CO2 (mmol/L) Ca (mg/dl) 136.00-145.00 3.50-5.10 98.00-107.00 21.00-32.00 8.50-10.10 138 3.7 104 26.8 8.1 INR (PTT:PT) 0.90-1.10 1.1 Troponin I (ng/ml) CPK (u/l) CPK-MB (ng/ML) 0.02-0.05 26.00-308.00 0.50-3.60 0.6 694 7.7 Medication Medication Total Dose (Bolus/Oral) Medication Total Dosage/Unit 1% XYLOCAINE 10 mL FENTANYL 50 mcg NTG (IC) 200 mcg VERSED 2 mg Medications (Bolus/Oral) Medication Time Given Dosage/Unit Administered By Reason VERSED 03/17/2017 3:08:46 PM 1 mg Freddy Frederick 1 mg VERSED given in lab by Freddy Frederick RN in Left Antecubital via Peripheral IV. Ordered by Anton Daly. FENTANYL 03/17/2017 3:08:47 PM 50 mcg Freddy Frederick 50 mcg FENTANYL given in lab by Freddy Frederick RN in Left Antecubital via Peripheral IV. Ordered by Anton Hernandez. 1% XYLOCAINE 03/17/2017 3:12:34 PM 10 mL Anton Hernandez 10 mL 1% XYLOCAINE given in lab by Anton Hernandez in Right Radial via Subcutaneous. Ordered by Anton Hernandez. VERSED 03/17/2017 3:12:45 PM 1 mg Freddy Frederick 1 mg VERSED given in lab by Freddy Frederick, RADHA in Left Antecubital via Peripheral IV. Ordered by Anton Daly. NTG (IC) 03/17/2017 3:15:02 PM 200 mcg Anton Hernandez 200 mcg NTG (IC) given in lab by Anton Hernandez in Right Radial via Intra-arterial. Ordered by Anton Hernandez. Medication (Drip) Medication Time Given Dosage/Unit Concentration/Unit Diluent (ml) Solution IV Solutions 03/17/2017 2:39:38 PM 0 mL (IV) 500 NaCl .9 Patient arrived on IV Solutions in Left Antecubital via Peripheral IV. Pump/Drip Flow = 20 ml/hr usin g NaCl .9. Initial Case Assessment Cardiovascular HR Rhythm NIBP Chest Pain 73 sr 112/60 0 Circulatory - Right Pulses Dorsalis Pedis Femoral Radial 3 3 3 Scale (0,1,2,3,4,d) Scale (0,1,2,3,4,d) Neurological State Oriented to time-place- Alert Moves all extremities person Respiration - General Respiration Rate SpO2 (%) O2 (lpm) (B/min) 13 100 10 Final Case Assessment Cardiovascular HR Rhythm NIBP Chest Pain 91 sr 143/75 0 Circulatory - Right Pulses Dorsalis Pedis Femoral Radial 3 3 3 Scale (0,1,2,3,4,d) Scale (0,1,2,3,4,d) Neurological State Oriented to time-place- Alert Moves all extremities person Respiration - General Respiration Rate SpO2 (%) (B/min) 14 97 Chronological Log Time Study Chronological Log 14:38:51 Patient arrived via Bed. 14:38:51 Patient Name, D.O.B, / Armband Verified By R.N. 14:38:52 Consent signed by the physician and the patient and verified by the Sawing And Assembly Supervisor staff. 14:38:53 Pre-op and post- op instructions given; patient acknowledges understanding of instructions. 14:38:54 Verbal Stimulation=2 Physical Stimulation=2 Airway=2 Respiration=2 TOTAL=8. (0=absent, 1=li mited, 2=present) 14:38:55 Presedation assessment performed by Sawing And Assembly Supervisor RN. 14:39:20 Allens test performed on the left radial and ulnar artery. 14:39:22 Allens test performed on the right radial and ulnar artery. 14:39:28 Patient has been NPO for More than 6Hrs. 14:39:28 Skin Breakdown-none 14:39:31 Alina Prominences Protected 14:39:37 A # 20 IV was noted in the Antecubital (left). Grade = patent 14:39:38 Patient arrived on IV Solutions in Left Antecubital via Peripheral IV. Pump/Drip Flow = 20 ml/hr using NaCl .9. 14:43:59 History and physical on the chart or being dictated. Assessment: Initial Case, HR=73 BPM, Rhythm=sr, ZNEW=383/60 mmhg, Chest Pain=0 Right Pulses: Ron Ped=3, Femoral=3, Radial=3 14:44:02 Neurological: State=Alert, Ox3, WOODS Respiration: Resp=13 B/min, KzD4=357 %, O2=10 lpm Vitals capture started with the following parameters, Patient=Adult, Interval=5 min, Initial Pr sfetgz=677 mmHg, 14:44:03 Deflation Rate=5 mmHg, Cuff placed on Left Arm 14:44:44 HR=72 bpm, TDPG=752/60 mmhg, YfI3=215 %, Resp=13 B/min 14:44:45 Reference ECG taken 14:49:18 Right groin and right radial prepped with 2% chlorhexidine, and draped after a 3 min. waiti ng time. 14:50:03 HR=73 bpm, GFDE=467/102 mmhg, DzY1=829.0 %, Resp=18 B/min, Pain=0, Libertad=10, Rowland=2 14:54:46 HR=72 bpm, HTJJ=446/90 mmhg, KpX2=285.0 %, Resp=11 B/min, Pain=0, Libertad=10, Rowland=2 14:55:10 MD paged 14:55:35 MD responded 14:58:19 Pressure channel 1 zeroed. 14:59:47 HR=71 bpm, XVZZ=261/77 mmhg, FaV2=145 %, Resp=12 B/min 15:05:17 HR=76 bpm, THRY=156/81 mmhg, CuM3=483 %, Resp=12 B/min 15:07:15 MD arrived. 15:08:46 1 mg VERSED given in lab by Freddy Frederick RN in Left Antecubital via Peripheral IV. Order ed by Anton Hrenandez. 15:08:47 50 mcg FENTANYL given in lab by Freddy Frederick, RN in Left Antecubital via Peripheral IV. O rdered by Anton Hernandez. 15:09:49 HR=78 bpm, WMQG=149/83 mmhg, SpO2=99.0 %, Resp=11 B/min Time Out. Correct patient, correct procedure, correct physician, power injector loaded, or not loaded with contrast with 15:12:29 surgical team present. Time Out Concurred by MD and individual staff in procedure. 15:12:32 Case Start 15:12:34 10 mL 1% XYLOCAINE given in lab by Anton Hernandez in Right Radial via Subcutaneous. Ordered by Anton Hernandez. 15:12:45 1 mg VERSED given in lab by Freddy Frederick, RADHA in Left Antecubital via Peripheral IV. Order ed by Anton Hernandez. 15:14:14 Access site was Radial Artery. right A SHEATH, FR6 RADIAL PRELUDE EASE 11CM FR 6 was advanced into the Radial (right) using the Perc utaneous 15:14:33 technique. 15:14:44 HR=89 bpm, IJKA=696/78 mmhg, SpO2=99.0 %, Resp=12 B/min 15:15:02 200 mcg NTG (IC) given in lab by Anton Hernandez in Right Radial via Intra-arterial. Ordered by Anton Hernandez. 15:15:31 In the Radial (right) the SHEATH, FR6 RADIAL PRELUDE EASE 11CM FR [address] by Anton Hernandez. Recorded Pressure: LV, HR=92, Condition=Condition 1 15:15:45 (Left Ventricle) LV 125/1/7 A JR 5.0 INFINITI CATHETER FR 6 was advanced over a wire. OMNIPAQUE, 350 MG, 150ML 150ML was ed for 15:15:46 injections. Recorded Pressure: LV, Ao, HR=99, Condition=Condition 1 15:16:01 (Left Ventricle) LV 138/0/7, (Aorta) Ao 133/84/105 15:16:40 The RCA was injected and visualized at various angles. OMNIPAQUE, 350 MG, 150ML 150ML used . After removing the current catheter a JL 3.5 INFINITI CATHETER FR 6 was advanced over a WIRE, EXCHANGE 260CM 15:17:31 3MMJ 260CM. 15:19:17 The LCA was injected and visualized at various angles. OMNIPAQUE, 350 MG, 150ML 150ML use d. 15:19:41 FS=383 bpm, GLVL=495/75 mmhg, SpO2=98 %, Resp=15 B/min 15:21:01 Catheter was removed 15:21:38 Case End 15::41 No case complications noted. 15:21:42 Cine recording checked. Radial Compression Device Used. 10 mLs of air placed in BAND, RADIAL COMPRESSION TR LARGE 29 2 9CM. Affected 15:24:17 hand 96 % O2 saturation. 15:24:50 Vitals capture stopped. 15:25:05 Bedside Report will be given. Assessment: Final Case, HR=91 BPM, Rhythm=sr, BDCF=338/75 mmhg, Chest Pain=0 Right Pulses: Ron Ped=3, Femoral=3, Radial=3 15:25:08 Neurological: State=Alert, Ox3, WOODS Respiration: Resp=14 B/min, SpO2=97 % 15:29:48 Patient transported to DOCU End Study - Contrast Media Used In Study Contrast Total Opened (mL) Total Used (mL) Total Wasted (mL) Omnipaque 40 40 0 End Study - Maximum Contrast Load Max Contrast Load (mL) 438.9 End Study - Radiation Exposure Fluoro Time (minutes) 1.6 End Study - Sheaths Sheaths Pulled By Sheath Hold Time (min) Minor, Anton End Study - Patient Disposition Complications Transferred To Interventional Outcome No Telemetry Bed No attempt made
--- NOTE | 2017-03-17 16:36 | MA ---
cc: JANEY HENAO MD DATE: 03/17/2017 PROCEDURE PERFORMED Left heart catheterization. Coronary angiography. Fluoroscopy. METHOD The risks, benefits and alternatives were discussed with the patient. The patient understood and consented to the procedure. The patient was brought into the catheterization lab and was placed on the catheterization table. The right wrist was prepped and draped in a sterile fashion. The right wrist was anesthetized with 2% lidocaine. The right radial artery was cannulated. A 6 Pashto, 11 cm sheath was placed without difficulty. LEFT HEART CATHETERIZATION Intraventricular hemodynamics measured at 140/10 mmHg. CORONARY ANGIOGRAPHY 1. Left main coronary artery is short but angiographically normal. 2. Left anterior descending coronary artery is a large caliber size, gives rise to a large diagonal branch, angiographically normal. 3. Left circumflex has minor irregularities. There is a ramus intermedius branch that has a 50% ostial stenosis at the trifurcation. 4. Right coronary artery has mild luminal irregularities, dominant vessel giving rise to a posterior descending branch. CONCLUSION 1. Moderate ramus intermedius ostial branch vessel disease at the trifurcation. 2. Normal left-sided filling pressures. PLAN We will initiate medical therapy. This would be a potentially difficult intervention given that the ostium is at the trifurcation of the LAD and circumflex. Will start him on aspirin, statin, isosorbide. He can be discharged and follow up with his primary care physician. MD RITU Barrera/KARLI /3:26 PM /3:57 PM
--- NOTE | 2017-03-17 17:42 | EKG ---
Date Performed: 03/17/2017 Time Performed: 07:21:06 PTAGE: 61 years EKG: Sinus rhythm NORMAL ECG Since PREVIOUS TRACING , no significant change noted PREVIOUS TRACIN03/05/2017 05.22 DOCTOR: Consuelo Luna Interpretating Date/Time 03/19/2017 06:27:48
--- NOTE | 2017-03-17 17:43 | EKG ---
Date Performed: 03/17/2017 Time Performed: 11:31:34 PTAGE: 61 years EKG: SINUS TACHYCARDIA POSSIBLE LEFT ATRIAL ENLARGEMENT NONSPECIFIC T-WAVE ABNORMALITY ABNORMAL RHYTHM ECG Since PREVIOUS TRACING , no significant change noted PREVIOUS TRACIN03/17/2017 10.38 DOCTOR: Consuelo Luna Interpretating Date/Time 03/17/2017 17:41:18
--- NOTE | 2017-03-17 17:44 | EKG ---
Date Performed: 03/17/2017 Time Performed: 14:04:30 PTAGE: 61 years EKG: Sinus rhythm NONSPECIFIC ST ELEVATION BORDERLINE ECG Since PREVIOUS TRACING , no significant change noted PREVIOUS TRACIN03/17/2017 11.31 DOCTOR: Consuelo Luna Interpretating Date/Time 03/17/2017 17:41:52
[2017-03-17] MEDS ORDERED: IOHEXOL 350 MG/ML 50 ML BTL (for Cath Lab) OTHER ONE (20:59)
[2017-03-18] MEDS ORDERED: ISOSORBIDE MONONITRATE 30 MG CR TAB (IMDUR) PO SCH (07:00)
[2017-03-18] MEDS ORDERED: ATORVASTATIN 40 MG TAB PO SCH (09:00)
[2017-03-18] MEDS ORDERED: ASPIRIN 325 MG TAB PO SCH (09:00)
[2017-03-18] MEDS ORDERED: ASPIRIN EC 81 MG TABEC PO SCH (09:00)
== END 2017-03-17 21:00 | disposition home or self-care (01) ==
LOC: NEPE 07:02 → NEDA 08:57 → NEPFCDU 10:13 → HDIC 19:46
PROVIDERS: ADMIT Internal Medicine; ATTEND Internal Medicine
DX: I21.4 Non-ST elevation (NSTEMI) myocardial infarction (principal); R10.10 Upper abdominal pain, unspecified; I10 Essential (primary) hypertension; E78.00 Pure hypercholesterolemia, unspecified; E11.65 Type 2 diabetes mellitus with hyperglycemia; R00.0 Tachycardia, unspecified; K21.9 Gastro-esophageal reflux disease without esophagitis; B19.20 Unspecified viral hepatitis C without hepatic coma; G47.30 Sleep apnea, unspecified; F25.9 Schizoaffective disorder, unspecified; F31.9 Bipolar disorder, unspecified; F14.10 Cocaine abuse, uncomplicated; F10.10 Alcohol abuse, uncomplicated; F41.9 Anxiety disorder, unspecified; F17.210 Nicotine dependence, cigarettes, uncomplicated; Z79.899 Other long term (current) drug therapy; Z79.82 Long term (current) use of aspirin; Z91.14 Patient's other noncompliance with medication regimen; Z71.51 Drug abuse counseling and surveillance of drug abuser
CPT/HCPCS: 71045; 80048; 80307; 82550; 82552; 83735; 84484; 85025; 85610; 93005; 93458; 99152; 99285; C1769; C1893; G0378; J1644; J2250; J3010; J7040; Q9967

== ENCOUNTER 2017-04-01 20:43 | Observation (INO) | payer OTHER ==
[~2017-04-01 20:43] MED LIST changes: +QUET1TAB7 PO
[2017-04-01 20:52] VITALS: BP 179/75; PULSE 119; RESP 18; TEMP 97.6; O2SAT 100
[2017-04-01 22:04] VITALS: BP 164/81; PULSE 91; RESP 18
--- NOTE | 2017-04-01 22:15 | RADRPT ---
EXAM DATE/TIME: 04/01/2017 21:54 [facility] COMPARISON: CHEST SINGLE AP, March 17, 2017, 7:39. INDICATIONS : Chest pain. MEDICAL HISTORY : Hypertension. Diabetes mellitus type II. Hepatitis C. SURGICAL HISTORY : None. ENCOUNTER: Initial ACUITY: 1 day PAIN SCORE: Non-responsive. LOCATION: Bilateral chest FINDINGS: A single view of the chest demonstrates the lungs to be symmetrically aerated without evidence of mas s, infiltrate or effusion. The cardiomediastinal contours are unremarkable. Osseous structures demo nstrate degenerative changes in the shoulders bilaterally. CONCLUSION: 1. No acute cardiopulmonary findings. Johann Rodriguez MD on April 01, 2017 at 22:13 Board Certified Radiologist. This report was verified electronically.
[2017-04-01 22:17] LABS: AUTOMATED NEUTROPHIL # 4.3 TH/MM3 (1.8-7.7); BASOPHIL # 0.1 TH/MM3 (0-0.2); BASOPHIL % 1.2 % (0.0-2.0); EOSINOPHIL # 0.1 TH/MM3 (0-0.4); EOSINOPHIL % 1.3 % (0.0-4.0); HEMATOCRIT 42.1 % (39.0-51.0); HEMOGLOBIN 14.9 GM/DL (13.0-17.0); LYMPH % 30.9 % (9.0-44.0); LYMPHOCYTE # 2.3 TH/MM3 (1.0-4.8); MEAN CELL VOLUME 84.5 FL (80.0-100.0); MEAN CORPUSCULAR HEMOGLOBIN 29.9 PG (27.0-34.0); MEAN CORPUSCULAR HGB CONC 35.4 % (32.0-36.0); MONO % 8.4 % (0.0-8.0); MONOCYTE # 0.6 TH/MM3 (0-0.9); NEUT % 58.2 % (16.0-70.0); PLATELET COUNT 251 TH/MM3 (150-450); RED BLOOD COUNT 4.99 MIL/MM3 (4.50-5.90); RED CELL DISTRIBUTION WIDTH 14.4 % (11.6-17.2); WHITE BLOOD COUNT 7.3 TH/MM3 (4.0-11.0)
--- NOTE | 2017-04-01 22:23 | PD ---
HPI Chief Complaint: Chest Pain Time Seen by Provider: 22:04 Travel History International Travel<30 days: No Contact w/Intl Traveler<30days: No Traveled to known affect area: No History of Present Illness HPI Patient is a 61-year-old male he is in police custody she is complaining of chest pain substernal that radiates to the back. He reports he had a cardiac history and he is on hydrochlorothiazide but does not know the name of the other blood pressure medicines taking. He was on lisinopril but had a bad cough and was taken off that 5 years ago. In the ER he is complaining of chest pain he also says he is hearing voices and seeing he is in no obvious distress his blood pressure is 165/100 heart rate is 80 and he is not diaphoretic nauseousness or vomiting and no signs of acute coronary syndrome at this time his EKG is normal sinus rhythm at a rate of 106 PFSH Past Medical History Hx Anticoagulant Therapy: Yes (ASPIRIN) Asthma: No Blood Disorders: No Anxiety: Yes Depression: Yes Heart Rhythm Problems: No Cancer: No Cardiac Catheterization: No Cardiovascular Problems: Yes High Cholesterol: Yes Chest Pain: Yes Congestive Heart Failure: No COPD: No Diabetes: Yes Patient Takes Glucophage: No Diminished Hearing: No Endocrine: Yes Gastrointestinal Disorders: Yes GERD: Yes Genitourinary: No Hepatitis: Yes (C) Hypertension: Yes Immune Disorder: No Implanted Vascular Access Dvce: No Musculoskeletal: No Neurologic: No Psychiatric: Yes Reproductive: No Respiratory: No Immunizations Current: Yes Sleep Apnea: Yes (CPAP) ?: Not Past Surgical History Abdominal Surgery: No Cardiac Surgery: No Coronary Artery Bypass Graft: No Endocrine Surgery: No Eye Surgery: Yes (RETINA SOCKET REPAIR) Genitourinary Surgery: No Gynecologic Surgery: No Thoracic Surgery: No Other Surgery: Yes (RIGHT HAND, RIGHT EYE) Family History Family Myocardial Infarction: Yes Social History Alcohol Use: Yes (SIX PACK PER DAY) Tobacco Use: Yes (1 PPD) Substance Use: Yes (marijuana occas., coccaine) Allergies-Medications (Allergen,Severity, Reaction): Coded Allergies: lisinopril (Verified Adverse Reaction, Intermediate, COUGH, 04/01/17) Reported Meds & Prescriptions Reported Meds & Active Scripts Active Novolin 70-30 Inj (Insulin Human Isoph/Insulin Regular) 1,000 Unit/10 Ml Vial 40 Units SQ BID Gnp Vitamin B-1 (Thiamine HCl) 100 Mg Tab 100 Mg PO DAILY Omeprazole 20 Mg Tab 20 Mg PO DAILY Aspirin EC (Aspirin) 81 Mg Tabdr 81 Mg PO DAILY Reported Quetiapine (Quetiapine Fumarate) 25 Mg Tab 25 Mg PO DAILY Gabapentin 600 Mg Tab 600 Mg PO BID Bupropion HCl 75 Mg Tab 150 Mg PO BID Hydrochlorothiazide 12.5 Mg Cap 12.5 Mg PO DAILY Ventolin Hfa 18 GM Inh (Albuterol Sulfate) 90 Mcg/Act Aer 2 Puff INH Q6H PRN Methocarbamol 750 Mg Tab 750 Mg PO HS Review of Systems Except as stated in HPI: all other systems reviewed are Neg Cardiovascular: Positive: Chest Pain or Discomfort Psychiatric: Positive: Anxiety, Disorder of Thought Physical Exam Narrative GENERAL: appears anxious also started say he is seeing thinks and police custody making it all worse SKIN: Warm and dry. HEAD: Atraumatic. Normocephalic. EYES: Pupils equal and round. No scleral icterus. No injection or drainage. ENT: No nasal bleeding or discharge. Mucous membranes pink and moist. NECK: Trachea midline. No JVD. CARDIOVASCULAR: Regular rate and rhythm. tachy at 106 RESPIRATORY: No accessory muscle use. Clear to auscultation. Breath sounds equal bilaterally. GASTROINTESTINAL: Abdomen soft, non-tender, nondistended. Hepatic and splenic margins not palpable. MUSCULOSKELETAL: Extremities without clubbing, cyanosis, or edema. No obvious deformities. NEUROLOGICAL: Awake and alert. No obvious cranial nerve deficits. Motor grossly within normal limits. Five out of 5 muscle strength in the arms and legs. Normal speech. PSYCHIATRIC: Anxious . Data Data Last Documented VS Vital Signs Date Time Temp Pulse Resp B/P (MAP) Pulse Ox O2 Delivery O2 Flow Rate FiO2 04/01/17 22:04 99 Nasal Cannula 2.00 04/01/17 22:04 18 04/01/17 22:04 91 164/81 (108) 04/01/17 20:52 97.6 Orders Orders Electrocardiogram (04/01/17 21:41) Complete Blood Count With Diff (04/01/17 21:41) Basic Metabolic Panel (Bmp) (04/01/17 21:41) Ckmb (Isoenzyme) Profile (04/01/17 21:41) Troponin I (04/01/17 21:41) Chest, Single Ap (04/01/17 21:41) Iv Access Insert/Monitor (04/01/17 21:41) Ecg Monitoring (04/01/17 21:41) Oxygen Administration (04/01/17 21:41) Oximetry (04/01/17 21:41) CKMB (04/01/17 22:05) CKMB% (04/01/17 22:05) Lorazepam Inj (Ativan Inj) (04/01/17 23:00) Aspirin Chew (Aspirin Chew) (04/01/17 23:00) Nitroglycerin 2% Oint (Nitroglycerin 2% (04/01/17 23:00) Admit Order (Ed Use Only) (04/01/17 22:53) Place In Observation (04/01/17 22:55) Activity Bed Rest With Brp (04/01/17 22:55) Vital Signs (Adult) Q4H (04/01/17 22:55) Cardiac Rhythm .As Directed (04/01/17:55) Notify Dr: Other .PRN (04/01/17 22:55) Notify DrRodrigo Parameters (04/01/17 22:55) Resp Oxygen Nasal Cannula (04/01/17 ) Ckmb (Isoenzyme) Profile (04/01/17 22:55) Ckmb (Isoenzyme) Profile (04/02/17 01:55) Troponin I (04/01/17 22:55) Troponin I (04/02/17 01:55) Electrocardiogram (04/01/17 22:55) Electrocardiogram (04/02/17 01:55) ^ Obtain (04/01/17 22:55) Sodium Chloride 0.9% Flush (Ns Flush) (04/01/17 23:00) Sodium Chloride 0.9% Flush (Ns Flush) (04/02/17 09:00) Kindergarten Instructional Assistant / Telemetry [id number] (04/01/17 22:55) Labs Laboratory Tests Test 04/01/17 22:05 White Blood Count 7.3 TH/MM3 Red Blood Count 4.99 MIL/MM3 Hemoglobin 14.9 GM/DL Hematocrit 42.1 % Mean Corpuscular Volume 84.5 FL Mean Corpuscular Hemoglobin 29.9 PG Mean Corpuscular Hemoglobin Concent 35.4 % Red Cell Distribution Width 14.4 % Platelet Count 251 TH/MM3 Mean Platelet Volume 7.0 FL Neutrophils (%) (Auto) 58.2 % Lymphocytes (%) (Auto) 30.9 % Monocytes (%) (Auto) 8.4 % Eosinophils (%) (Auto) 1.3 % Basophils (%) (Auto) 1.2 % Neutrophils # (Auto) 4.3 TH/MM3 Lymphocytes # (Auto) 2.3 TH/MM3 Monocytes # (Auto) 0.6 TH/MM3 Eosinophils # (Auto) 0.1 TH/MM3 Basophils # (Auto) 0.1 TH/MM3 CBC Comment DIFF FINAL Differential Comment Blood Urea Nitrogen 7 MG/DL Creatinine 0.96 MG/DL Random Glucose 123 MG/DL Calcium Level 8.3 MG/DL Sodium Level 138 MEQ/L Potassium Level 3.8 MEQ/L Chloride Level 104 MEQ/L Carbon Dioxide Level 25.7 MEQ/L Anion Gap 8 MEQ/L Estimat Glomerular Filtration Rate 97 ML/MIN Total Creatine Kinase 556 U/L Creatine Kinase MB 7.3 NG/ML Creatine Kinase MB % 1.3 % Troponin I 0.04 NG/ML MDM Medical Decision Making Medical Screen Exam Complete: Yes Emergency Medical Condition: Yes Differential Diagnosis chest pain of ischemia Myocardial vs costochondritis , vs PNA vs anxiety vs malingering other Narrative Course trop 0.04 slightly up from normal but not elevated . Pt has CAD aHx and long cocaine abuse and age are risk factors that warrant further investigation in chest pain center admit Diagnosis Primary Impression: Chest pain Admitting Information Admitting Physician Requests: Observation Scripts Isosorbide Mononitrate (Isosorbide Mononitrate) 20 Mg Tab 20 MG PO BID for Prevent Chest Pain, #60 TAB 0 Refills Take 2 doses 7 hours apart. Prov: Romeo Shah 04/02/17 Jared Vallejo MD Apr 01, 2017 22:23
[2017-04-01 22:34] LABS: BICARBONATE 25.7 MEQ/L (21.0-32.0); CALCIUM 8.3 MG/DL (8.5-10.1); CREATININE 0.96 MG/DL (0.60-1.30)
[2017-04-01 22:37] LABS: TROPONIN I 0.04 NG/ML (0.02-0.05)
[2017-04-01] MEDS ORDERED: SODIUM CHLORIDE 0.9% FLUSH 10 ML FLUSH IV FLUSH PRN (23:00)
[2017-04-01] MEDS ORDERED: LORazepam 2 MG/ML VIAL IV PUSH ONE (23:00)
[2017-04-01] MEDS ORDERED: ASPIRIN 81 MG CHEW TAB CHEW ONE (23:00)
[2017-04-01] MEDS ORDERED: NITROGLYCERIN 2% OINT 1 GM PACKET TOPICAL ONE (23:00)
[2017-04-01 23:02] VITALS: BP 165/79; PULSE 88; RESP 16; O2SAT 97
[2017-04-01 23:09] VITALS: O2SAT 97
[2017-04-02 00:03] VITALS: BP 154/69; PULSE 85; RESP 20; TEMP 97.5; O2SAT 99
[2017-04-02 00:09] VITALS: PULSE 83
[2017-04-02 02:08] LABS: TROPONIN I 0.02 NG/ML (0.02-0.05)
[2017-04-02 03:54] VITALS: BP 161/81; PULSE 67; PULSE 82; RESP 16; RESP 20; TEMP 97.1; TEMP 97.3; O2SAT 100
[2017-04-02 04:04] VITALS: PULSE 71
[2017-04-02 04:56] LABS: TROPONIN I 0.02 NG/ML (0.02-0.05)
[2017-04-02 07:50] VITALS: BP 186/84; PULSE 74; RESP 21; TEMP 98.5; O2SAT 97
[2017-04-02] MEDS ORDERED: SODIUM CHLORIDE 0.9% FLUSH 10 ML FLUSH IV FLUSH SCH (09:00)
--- NOTE | 2017-04-02 09:17 | HHI.HP ---
HPI Service Chest pain center Primary Care Physician No Primary Care Physician Under police custody will return to residential Chief Complaint Chest pain History of Present Illness 61-year-old black male unable to provide meaningful history. Under arrest for forgery and additional charges, long-standing and heavy cocaine user. He presents complaining of chest pain but also mentions that an advisor told him at one time that he should be in the hospital for 3 days to be detoxed. This seems to be part of his motivation for wanting to be here now. Review of his systems shows that he recently underwent a catheterization which showed only mild to moderate disease. He is only moderately cooperative and is noted to have diffuse body jerking. He last used cocaine just prior to arrest. Little other meaningful history can be obtained at this time. Review of Systems Gastrointestinal: COMPLAINS OF: Nausea Psychiatric: COMPLAINS OF: Anxiety, Depression Past Family Social History Allergies: Coded Allergies: lisinopril (Verified Adverse Reaction, Intermediate, COUGH, 04/01/17) Past Medical History Long-standing drug addiction Anxiety depression Questionable diabetes GERD Hypertension Hepatitis C Sleep apnea Psychiatric illness Past Surgical History Surgical repair of the right eye socket Surgery in the right hand Reported Medications Reported Meds & Active Scripts Active Novolin 70-30 Inj (Insulin Human Isoph/Insulin Regular) 1,000 Unit/10 Ml Vial 40 Units SQ BID [Lactulose Liq] 30 ML Syrp 30 Ml PO DAILY Gnp Vitamin B-1 (Thiamine HCl) 100 Mg Tab 100 Mg PO DAILY Omeprazole 20 Mg Tab 20 Mg PO DAILY Aspirin EC (Aspirin) 81 Mg Tabdr 81 Mg PO DAILY Reported Quetiapine (Quetiapine Fumarate) 25 Mg Tab 25 Mg PO DAILY Gabapentin 600 Mg Tab 600 Mg PO BID Bupropion HCl 75 Mg Tab 150 Mg PO BID Hydrochlorothiazide 12.5 Mg Cap 12.5 Mg PO DAILY Ventolin Hfa 18 GM Inh (Albuterol Sulfate) 90 Mcg/Act Aer 2 Puff INH Q6H PRN Methocarbamol 750 Mg Tab 750 Mg PO HS Active Ordered Medications Current Medications Medications (Trade) Dose Ordered Sig/Salas Route Start Time Stop Time Status Last Admin (NS Flush) 2 ml UNSCH PRN IV FLUSH 04/01/17 23:00 (NS Flush) 2 ml BID IV FLUSH 04/02/17 09:00 Family History Not contributory Social History Alcohol 6 pack a day Tobacco pack a day Drugs admitted cocaine and marijuana, suspect multiple Physical Exam Vital Signs Vital Signs Date Time Temp Pulse Resp B/P (MAP) Pulse Ox O2 Delivery O2 Flow Rate FiO2 04/02/17 07:50 98.5 74 21 186/84 (118) 97 04/02/17 04:04 71 04/02/17 03:54 97.3 82 20 161/81 (107) 100 04/02/17 03:54 97.1 67 16 161/ 100 04/02/17 00:09 83 04/02/17 00:03 97.5 85 20 154/69 (97) 99 04/01/17 23:25 04/01/17 23:09 97 Nasal Cannula 2.00 04/01/17 23:02 88 16 165/79 (107) 97 Nasal Cannula 2.00 04/01/17 22:04 99 Nasal Cannula 2.00 04/01/17 22:04 18 04/01/17 22:04 91 164/81 (108) 04/01/17 20:52 97.6 119 18 179/75 (109) 100 Physical Exam GENERAL: Muscular black male handcuffed to bed SKIN: Warm and dry. HEAD: Atraumatic. Normocephalic. EYES: Pupils equal and round. Conjunctiva injected sclera muddy. No scleral icterus. ENT: No nasal bleeding or discharge. Mucous membranes pink and moist. NECK: Trachea midline. No JVD. CARDIOVASCULAR: Regular rate and rhythm. RESPIRATORY: Decreased breath sounds diffusely no accessory muscle use. Clear to auscultation. No rales wheezes or rhonchi. GASTROINTESTINAL: Abdomen voluntary guarding, non-tender, nondistended. Hepatic and splenic margins not palpable. MUSCULOSKELETAL: Extremities without clubbing, cyanosis, or edema. No obvious deformities. NEUROLOGICAL: Awake and alert. No obvious cranial nerve deficits but will not follow commands for appropriate testing. Motor grossly within normal limits. Diffuse spasmodic jerking of head extremities and body intermittent but fairly frequent. Appears to be voluntary. PSYCHIATRIC: Sullen, poorly responsive, memory seems impaired but very difficult to evaluate as probably still under the influence of substances Laboratory Laboratory Tests Test 04/01/17 22:05 04/02/17 01:19 04/02/17 04:30 White Blood Count 7.3 Red Blood Count 4.99 Hemoglobin 14.9 Hematocrit 42.1 Mean Corpuscular Volume 84.5 Mean Corpuscular Hemoglobin 29.9 Mean Corpuscular Hemoglobin Concent 35.4 Red Cell Distribution Width 14.4 Platelet Count 251 Mean Platelet Volume 7.0 Neutrophils (%) (Auto) 58.2 Lymphocytes (%) (Auto) 30.9 Monocytes (%) (Auto) 8.4 Eosinophils (%) (Auto) 1.3 Basophils (%) (Auto) 1.2 Neutrophils # (Auto) 4.3 Lymphocytes # (Auto) 2.3 Monocytes # (Auto) 0.6 Eosinophils # (Auto) 0.1 Basophils # (Auto) 0.1 CBC Comment DIFF FINAL Differential Comment Blood Urea Nitrogen 7 Creatinine 0.96 Random Glucose 123 Calcium Level 8.3 Sodium Level 138 Potassium Level 3.8 Chloride Level 104 Carbon Dioxide Level 25.7 Anion Gap 8 Estimat Glomerular Filtration Rate 97 Total Creatine Kinase 556 531 432 Creatine Kinase MB 7.3 6.1 5.9 Creatine Kinase MB % 1.3 1.1 1.4 Troponin I 0.04 0.02 0.02 Result Diagram: 04/01/17220404/01/172204 Imaging Chest x-ray acceptable Course In view of fairly recent catheterization and 3 negative troponins the patient will be restarted on appropriate medications and discharged back to the custody of the residential. Caprini VTE Risk Assessment Caprini VTE Risk Assessment: No/Low Risk (score <= 1) Caprini Risk Assessment Model Point Value = 1 Point Value = 2 Point Value = 3 Point Value = 5 Age 41-60 Minor surgery BMI > 25 kg/m2 Swollen legs Varicose veins or History of unexplained or recurrent spontaneous Oral contraceptives or hormone replacement Sepsis (< 1 month) Serious lung disease, including pneumonia (< 1 month) Abnormal pulmonary function Acute myocardial infarction Congestive heart failure (< 1 month) History of inflammatory bowel disease Medical patient at bed rest Age 61-74 Arthroscopic surgery Major open surgery (> 45 min) Laparoscopic surgery (> 45 min) Malignancy Confined to bed (> 72 hours) Immobilizing plaster cast Central venous access Age >= 75 History of VTE Family history of VTE Factor V Leiden Prothrombin [id number] Lupus anticoagulant Anticardiolipin antibodies Elevated serum homocysteine Heparin-induced thrombocytopenia Other congenital or acquired thrombophilia Stroke (< 1 month) Elective arthroplasty Hip, pelvis, or leg fracture Acute spinal cord injury (< 1 month) Prophylaxis Regimen Total Risk Factor Score Risk Level Prophylaxis Regimen 0-1 Low Early ambulation 2 Moderate Order ONE of the following: *Sequential Compression Device (SCD) *Heparin 5000 units SQ BID 3-4 Higher Order ONE of the following medications: *Heparin 5000 units SQ TID *Enoxaparin/Lovenox 40 mg SQ daily (WT < 150 kg, CrCl > 30 mL/min) *Enoxaparin/Lovenox 30 mg SQ daily (WT < 150 kg, CrCl > 10-29 mL/min) *Enoxaparin/Lovenox 30 mg SQ BID (WT < 150 kg, CrCl > 30 mL/min) AND/OR *Sequential Compression Device (SCD) 5 or more Highest Order ONE of the following medications: *Heparin 5000 units SQ TID (Preferred with Epidurals) *Enoxaparin/Lovenox 40 mg SQ daily (WT < 150 kg, CrCl > 30 mL/min) *Enoxaparin/Lovenox 30 mg SQ daily (WT < 150 kg, CrCl > 10-29 mL/min) *Enoxaparin/Lovenox 30 mg SQ BID (WT < 150 kg, CrCl > 30 mL/min) AND *Sequential Compression Device (SCD) Yfn Champion MD Apr 02, 2017 09:17
[2017-04-02] MEDS ORDERED: ISOSORBIDE MONONITRATE 20 MG TAB PO ONE (09:30)
[2017-04-02] MEDS ORDERED: ISOS20TA PO (09:39)
--- NOTE | 2017-04-02 09:40 | HHI.DCPOC ---
Discharge Care Plan Diagnosis: (1) Chest pain (2) Hypertension (3) Hyperlipidemia (4) Diabetes (5) CAD (coronary artery disease) (6) Cocaine abuse (7) Tobacco abuse Goals to Promote Your Health * To prevent worsening of your condition and complications * To maintain your health at the optimal level Directions to Meet Your Goals Take your medications as prescribed Follow your dietary instruction Follow activity as directed Keep your appointments as scheduled Take your immunizations and boosters as scheduled If your symptoms worsen call your PCP, if no PCP go to Urgent Care Center or Emergency Room Smoking is Dangerous to Your Health. Avoid second hand smoke Call the 24-hour hour crisis hotline for domestic abuse at [facility] Apr 02, 2017 09:40
--- NOTE | 2017-04-03 08:02 | EKG ---
Date Performed: 04/02/2017 Time Performed: 04:05:29 PTAGE: 61 years EKG: Sinus rhythm NORMAL ECG NO CHANGE PREVIOUS TRACING : 04/02/2017 01.31 DOCTOR: Yfn Champion Interpretating Date/Time 04/03/2017 08:00:24
--- NOTE | 2017-04-03 08:02 | EKG ---
Date Performed: 04/02/2017 Time Performed: 01:31:40 PTAGE: 61 years EKG: Sinus rhythm ARM LEADS REVERSED ATYPICAL ECG RATE HAS SLOWED AND T WAVES IMPROVED PREVIOUS TRACING : 03/17/2017 14.04 DOCTOR: Yfn Champion Interpretating Date/Time 04/03/2017 08:01:17
--- NOTE | 2017-04-03 08:05 | EKG ---
Date Performed: 04/01/2017 Time Performed: 21:03:56 PTAGE: 61 years EKG: SINUS TACHYCARDIA POSSIBLE LEFT ATRIAL ENLARGEMENT ABNORMAL RHYTHM ECG RATE INCREASED AND M INOR STT CHANGES NO PREVIOUS TRACING DOCTOR: Yfn Champion Interpretating Date/Time 04/03/2017 08:03:24
== END 2017-04-02 10:40 | disposition home or self-care (01) ==
LOC: NEDAMB 20:43 → NEDA 22:56 → NEPFCDU 23:41
PROVIDERS: ADMIT Internal Medicine Cardiovascular Disease; ATTEND Internal Medicine Cardiovascular Disease
DX: R07.9 Chest pain, unspecified (principal); R11.0 Nausea; I25.10 Atherosclerotic heart disease of native coronary artery without angina pectoris; I10 Essential (primary) hypertension; E78.00 Pure hypercholesterolemia, unspecified; E11.9 Type 2 diabetes mellitus without complications; K21.9 Gastro-esophageal reflux disease without esophagitis; B19.20 Unspecified viral hepatitis C without hepatic coma; G47.30 Sleep apnea, unspecified; F41.8 Other specified anxiety disorders; R00.0 Tachycardia, unspecified; R94.31 Abnormal electrocardiogram [ECG] [EKG]; F14.10 Cocaine abuse, uncomplicated; F17.200 Nicotine dependence, unspecified, uncomplicated; Z79.899 Other long term (current) drug therapy; Z79.82 Long term (current) use of aspirin; Z79.4 Long term (current) use of insulin
CPT/HCPCS: 71045; 80048; 82550; 82552; 84484; 85025; 93005; 96374; 99285; G0378; J2060

== ENCOUNTER 2017-05-07 06:03 | Observation (INO) | payer OTHER ==
[~2017-05-07] VITALS: Ht 172.7 cm; Wt 80.0 kg
[~2017-05-07 06:03] MED LIST changes: +ISOS20TA PO; -Lactulose Liq PO
[2017-05-07 06:12] VITALS: BP 128/73; PULSE 10; PULSE 106; RESP 16; TEMP 99.5; O2SAT 100
[2017-05-07 06:57] LABS: AUTOMATED NEUTROPHIL # 10.8 TH/MM3 (1.8-7.7); BASOPHIL # 0.2 TH/MM3 (0-0.2); EOSINOPHIL # 0.1 TH/MM3 (0-0.4); EOSINOPHIL % 0.5 % (0.0-4.0); HEMATOCRIT 38.6 % (39.0-51.0); HEMOGLOBIN 13.1 GM/DL (13.0-17.0); LYMPHOCYTE # 2.7 TH/MM3 (1.0-4.8); MEAN CELL VOLUME 84.3 FL (80.0-100.0); MEAN CORPUSCULAR HEMOGLOBIN 28.6 PG (27.0-34.0); MEAN CORPUSCULAR HGB CONC 33.9 % (32.0-36.0); MONO % 8.4 % (0.0-8.0); MONOCYTE # 1.3 TH/MM3 (0-0.9); NEUT % 72.1 % (16.0-70.0); PLATELET COUNT 346 TH/MM3 (150-450); RED BLOOD COUNT 4.57 MIL/MM3 (4.50-5.90); RED CELL DISTRIBUTION WIDTH 13.3 % (11.6-17.2)
--- NOTE | 2017-05-07 07:12 | RADRPT ---
EXAM DATE/TIME: 05/07/2017 06:56 [facility] COMPARISON: CHEST SINGLE AP, April 01, 2017, 21:54. INDICATIONS : Chest pain. MEDICAL HISTORY : None. SURGICAL HISTORY : None. ENCOUNTER: Initial ACUITY: 1 day PAIN SCORE: Non-responsive. LOCATION: Bilateral chest FINDINGS: A single view of the chest demonstrates the lungs to be symmetrically aerated without evidence of mas s, infiltrate or effusion. The cardiomediastinal contours are unremarkable. Osseous structures are intact. CONCLUSION: 1. No acute findings. Angel Childers MD on May 07, 2017 at 7:10 Board Certified Radiologist. This report was verified electronically.
[2017-05-07 07:17] LABS: BICARBONATE 31.3 MEQ/L (21.0-32.0); CALCIUM 8.5 MG/DL (8.5-10.1)
[2017-05-07 07:31] LABS: TROPONIN I 0.03 NG/ML (0.02-0.05)
[2017-05-07] MEDS ORDERED: SODIUM CHLOR 0.9% 1000 ML INJ 1,000 ML IV ONE (10:00)
[2017-05-07 10:13] VITALS: BP 183/84; PULSE 80; RESP 20; O2SAT 97
--- NOTE | 2017-05-07 10:17 | PD ---
HPI Chief Complaint: body aches Time Seen by Provider: 09:50 Travel History International Travel<30 days: No Contact w/Intl Traveler<30days: No Traveled to known affect area: No History of Present Illness HPI 61-year-old male presents with note of cramping all over and feeling generally weak. He does admit to cocaine use recently. He states that his symptoms got worse while he was sitting outside and he elected to come here. He denies any fever or other concurrent complaints but is a poor historian and also notes recent alcohol use. Quality is cramping. Location is diffuse. He states it feels worse when he moves around. He denies other modifying factors. PFSH Past Medical History Hx Anticoagulant Therapy: Yes (ASPIRIN) Asthma: No Blood Disorders: No Anxiety: Yes Depression: Yes Heart Rhythm Problems: No Cancer: No Cardiac Catheterization: No Cardiovascular Problems: Yes High Cholesterol: Yes Chest Pain: Yes Congestive Heart Failure: No COPD: No Diabetes: Yes Patient Takes Glucophage: No Diminished Hearing: No Endocrine: Yes Gastrointestinal Disorders: Yes GERD: Yes Genitourinary: No Hepatitis: Yes (C) Hypertension: Yes Immune Disorder: No Implanted Vascular Access Dvce: No Musculoskeletal: No Neurologic: No Psychiatric: Yes Reproductive: No Respiratory: No Immunizations Current: Yes Sleep Apnea: Yes (CPAP) Tetanus Vaccination: < 5 Years Influenza Vaccination: Yes Past Surgical History Abdominal Surgery: No Cardiac Surgery: No Coronary Artery Bypass Graft: No Endocrine Surgery: No Eye Surgery: Yes (RETINA SOCKET REPAIR) Genitourinary Surgery: No Gynecologic Surgery: No Thoracic Surgery: No Other Surgery: Yes (RIGHT HAND, RIGHT EYE) Family History Family Myocardial Infarction: Yes Social History Alcohol Use: Yes (SIX PACK PER DAY) Tobacco Use: Yes (1 PPD) Substance Use: Yes (marijuana occas., coccaine) Allergies-Medications (Allergen,Severity, Reaction): Coded Allergies: lisinopril (Verified Adverse Reaction, Intermediate, COUGH, 05/07/17) Reported Meds & Prescriptions Reported Meds & Active Scripts Active Isosorbide Mononitrate 20 Mg Tab 20 Mg PO BID Take 2 doses 7 hours apart. Novolin 70-30 Inj (Insulin Human Isoph/Insulin Regular) 1,000 Unit/10 Ml Vial 40 Units SQ BID Gnp Vitamin B-1 (Thiamine HCl) 100 Mg Tab 100 Mg PO DAILY Omeprazole 20 Mg Tab 20 Mg PO DAILY Aspirin EC (Aspirin) 81 Mg Tabdr 81 Mg PO DAILY Reported Quetiapine (Quetiapine Fumarate) 25 Mg Tab 25 Mg PO DAILY Gabapentin 600 Mg Tab 600 Mg PO BID Bupropion HCl 75 Mg Tab 150 Mg PO BID Hydrochlorothiazide 12.5 Mg Cap 12.5 Mg PO DAILY Ventolin Hfa 18 GM Inh (Albuterol Sulfate) 90 Mcg/Act Aer 2 Puff INH Q6H PRN Methocarbamol 750 Mg Tab 750 Mg PO HS Review of Systems Except as stated in HPI: all other systems reviewed are Neg Physical Exam Narrative GENERAL: 61-year-old male who awakens to voice but appears drowsy SKIN: Focused skin assessment warm/dry. HEAD: Atraumatic. Normocephalic. EYES: Pupils equal and round. No scleral icterus. No injection or drainage. ENT: No nasal bleeding or discharge. Mucous membranes pink and moist. NECK: Trachea midline. No JVD. CARDIOVASCULAR: Regular rate and rhythm. RESPIRATORY: No accessory muscle use. No increased effort GASTROINTESTINAL: Abdomen soft, non-tender, nondistended. MUSCULOSKELETAL: No obvious deformities. No clubbing. No cyanosis. NEUROLOGICAL: Drowsy but awakens easily to voice, motor grossly within normal limits. Mild slurred al speech. Data Data Last Documented VS Vital Signs Date Time Temp Pulse Resp B/P (MAP) Pulse Ox O2 Delivery O2 Flow Rate FiO2 05/07/17 10:13 80 20 183/84 (117) 97 Room Air 05/07/17 06:12 99.5 Orders Orders Electrocardiogram (05/07/17 06:17) Complete Blood Count With Diff (05/07/17 06:17) Basic Metabolic Panel (Bmp) (05/07/17 06:17) Ckmb (Isoenzyme) Profile (05/07/17 06:17) Troponin I (05/07/17 06:17) Chest, Single Ap (05/07/17 06:17) Iv Access Insert/Monitor (05/07/17 06:17) Ecg Monitoring (05/07/17 06:17) Oximetry (05/07/17 06:17) CKMB (05/07/17 06:40) CKMB% (05/07/17 06:40) Drug Screen, Random Urine (05/07/17 09:51) Sodium Chlor 0.9% 1000 Ml Inj (Ns 1000 M (05/07/17 10:00) Urinalysis - C+S If Indicated (05/07/17 10:01) Alcohol (Ethanol) (05/07/17 10:15) Place In Observation (05/07/17 ) Vital Signs (Adult) Q4H (05/07/17 10:53) Activity Oob Ad Rosemarie (05/07/17 10:53) Indoor Landscape Architect / Telemetry .CONTINUOUS (05/07/17 10:53) Intake + Output ERASMO.QSHIFT (05/07/17 10:53) Diet Heart Healthy (05/07/17 Lunch) Sodium Chlor 0.9% 1000 Ml Inj (Ns 1000 M (05/07/17 10:53) Sodium Chloride 0.9% Flush (Ns Flush) (05/07/17 11:00) Sodium Chloride 0.9% Flush (Ns Flush) (05/07/17 21:00) Ondansetron Inj (Zofran Inj) (05/07/17 11:00) Basic Metabolic Panel (Bmp) (05/08/17 06:00) Complete Blood Count With Diff (05/08/17 06:00) Creatine Kinase (Cpk) (05/07/17 10:53) Creatine Kinase (Cpk) (05/07/17 16:53) Troponin I (05/07/17 10:53) Troponin I (05/07/17 16:53) Electrocardiogram (05/07/17 10:53) Electrocardiogram (05/07/17 16:53) Enoxaparin Inj (Lovenox Inj) (05/07/17 11:00) Scd Bilateral/Knee High ERASMO.BID (05/07/17 10:53) Naloxone Inj (Narcan Inj) (05/07/17 11:00) Docusate Sodium-Senna ([place]-Colace) (05/07/17 21:00) Magnesium Hydroxide Liq (Milk Of Magnesi (05/07/17 11:00) Sennosides (Senokot) (05/07/17 11:00) Bisacodyl Supp (Dulcolax Supp) (05/07/17 11:00) Lactulose Liq (Lactulose Liq) (05/07/17 11:00) Admit Order (Ed Use Only) (05/07/17 10:53) Acetamin-Hydrocod 325-5 Mg ([place] 5-325 (05/07/17 11:00) Acetamin-Hydrocod 325-7.5 Mg ([place] 7.5 (05/07/17 11:00) Labs Laboratory Tests Test 05/07/17 06:40 White Blood Count 15.0 TH/MM3 Red Blood Count 4.57 MIL/MM3 Hemoglobin 13.1 GM/DL Hematocrit 38.6 % Mean Corpuscular Volume 84.3 FL Mean Corpuscular Hemoglobin 28.6 PG Mean Corpuscular Hemoglobin Concent 33.9 % Red Cell Distribution Width 13.3 % Platelet Count 346 TH/MM3 Mean Platelet Volume 7.0 FL Neutrophils (%) (Auto) 72.1 % Lymphocytes (%) (Auto) 18.0 % Monocytes (%) (Auto) 8.4 % Eosinophils (%) (Auto) 0.5 % Basophils (%) (Auto) 1.0 % Neutrophils # (Auto) 10.8 TH/MM3 Lymphocytes # (Auto) 2.7 TH/MM3 Monocytes # (Auto) 1.3 TH/MM3 Eosinophils # (Auto) 0.1 TH/MM3 Basophils # (Auto) 0.2 TH/MM3 CBC Comment DIFF FINAL Differential Comment Blood Urea Nitrogen 6 MG/DL Creatinine 1.00 MG/DL Random Glucose 144 MG/DL Calcium Level 8.5 MG/DL Sodium Level 138 MEQ/L Potassium Level 3.6 MEQ/L Chloride Level 100 MEQ/L Carbon Dioxide Level 31.3 MEQ/L Anion Gap 7 MEQ/L Estimat Glomerular Filtration Rate 92 ML/MIN Total Creatine Kinase 1826 U/L Creatine Kinase MB 10.8 NG/ML Creatine Kinase MB % 0.6 % Troponin I 0.03 NG/ML MDM Medical Decision Making Medical Screen Exam Complete: Yes Emergency Medical Condition: Yes Medical Record Reviewed: Yes (Past history confirmed) Interpretation(s) CBC & BMP Diagram 05/07/17 06:40 Calcium Level 8.5 Last 24 hours Impressions Chest X-Ray 05/07/17 0617 Signed Impressions: Service Date/Time: April 06:56 - CONCLUSION: 1. No acute findings. Angel Childers MD Differential Diagnosis Rhabdomyolysis, substance abuse, renal failure Narrative Course Will check alcohol level, drug screen and urinalysis in addition to triage workup ordered. Given rhabdomyolysis will order IV fluids in place in the hospital for observation for further care Physician Communication Physician Communication dr murillo agrees to admit Diagnosis Primary Impression: Rhabdomyolysis Qualified Codes: M62.82 - Rhabdomyolysis Admitting Information Admitting Physician Requests: Observation Kristine Mak MD May 07, 2017 10:17
[2017-05-07] MEDS ORDERED: NALOXONE HCL 0.4 MG/ML AMP IV PUSH PRN (11:00)
[2017-05-07] MEDS ORDERED: ONDANSETRON HCL 4 MG/2 ML VIAL IVP PRN (11:00)
[2017-05-07] MEDS ORDERED: ACETAMINOPHEN/HYDROcodone 325 MG/5 MG TAB PO PRN (11:00)
[2017-05-07] MEDS ORDERED: MAGNESIUM HYDROXIDE SUSP 30 ML CUP PO PRN (11:00)
[2017-05-07] MEDS ORDERED: SENNOSIDES 8.6 MG TAB PO PRN (11:00)
[2017-05-07] MEDS ORDERED: SODIUM CHLORIDE 0.9% FLUSH 10 ML FLUSH IV FLUSH PRN (11:00)
[2017-05-07] MEDS ORDERED: BISACODYL 10 MG SUPP RECTAL PRN (11:00)
[2017-05-07] MEDS ORDERED: LACTULOSE SYRUP 20 GM/30 ML CUP PO PRN (11:00)
[2017-05-07] MEDS: ENOXAPARIN SODIUM 40 MG/0.4 ML SYRINGE SQ SCH (12:00)
[2017-05-07 12:20] VITALS: O2SAT 96
--- NOTE | 2017-05-07 12:23 | EKG ---
Date Performed: 05/07/2017 Time Performed: 06:24:28 PTAGE: 61 years EKG: Sinus rhythm NORMAL ECG PREVIOUS TRACING : 04/02/2017 04.05 Since the previous tracing, no significant change noted DOCTOR: Marvin Méndez Interpretating Date/Time 05/07/2017 12:22:16
[2017-05-07 13:17] VITALS: BP 171/81; PULSE 90; RESP 16; O2SAT 96
[2017-05-07 13:41] LABS: BACTERIA, URINE RARE /hpf; BILIRUBIN, URINE NEG (NEG); BLOOD, URINE NEG (NEG); GLUCOSE,URINE NEG (NEG); KETONE, URINE NEG (NEG); NITRITE,URINE NEG (NEG); SQUAMOUS EPITHELIAL CELL URINE <1 /hpf (0-5); URINE COLOR COLORLESS (YELLW/STRAW); URINE LEUKOCYTE ESTERASE NEG (NEG)
[2017-05-07] MEDS ORDERED: ONDANSETRON HCL 4 MG/2 ML VIAL IV PUSH PRN (14:00)
[2017-05-07] MEDS ORDERED: FLUMAZENIL 0.5 MG/5 ML VIAL IV PUSH PRN (14:00)
[2017-05-07] MEDS ORDERED: ENALAPRILAT 1.25 MG/ML VIAL IV PUSH PRN (14:00)
[2017-05-07] MEDS ORDERED: HALOPERIDOL LACTATE 5 MG/ML AMP IM PRN (14:00)
[2017-05-07] MEDS ORDERED: hydrALAZINE HCL 10 MG TAB PO PRN (14:00)
[2017-05-07] MEDS ORDERED: LORazepam 2 MG TAB PO PRN (14:00)
[2017-05-07] MEDS: ISOSORBIDE MONONITRATE 20 MG TAB PO SCH ×2 (14:00→23:19)
[2017-05-07] MEDS ORDERED: LORazepam 1 MG TAB PO PRN (14:00)
[2017-05-07] MEDS ORDERED: LORazepam 2 MG/ML VIAL IV PUSH PRN ×4 (14:00)
[2017-05-07] MEDS ORDERED: DEXTROSE 50% IN WATER 50 ML VIAL(D50) IV PUSH PRN (14:15)
[2017-05-07] MEDS ORDERED: GLUCAGON 1 MG/ML VIAL OTHER PRN (14:15)
[2017-05-07 14:20] LABS: TROPONIN I 0.02 NG/ML (0.02-0.05)
--- NOTE | 2017-05-07 14:21 | HHI.HP ---
[facility] No Primary Care Physician Admission Diagnosis Rhabdomyolysis Diagnoses: Travel History International Travel<30 Days: No Contact w/Intl Traveler <30 Da: No Traveled to Known Affected Are: No History of Present Illness Patient is a 61-year-old -Israeli male with past medical history of diabetes, angina, cocaine use, hypertension, GERD, asthma, depression, neuropathy presents to the emergency room because he has "pain all over ". He states he has muscle cramps on and off for the past 3 days. He mentions some "problem and stomach "but then falls asleep. I have to constantly wake him up to try to get a history. Patient is a he was walking to [employer] when he started feeling the pain throughout his body. He really does not elaborate on what he did prior to start having the body aches. Patient is very somnolent but then will wake up and asked for food. He is more concerned about getting food and is ready to get out of bed to try to find a vending machine. Patient is to doing cocaine yesterday History is limited due to patient's current status. Review of Systems ROS Limitations: Clinical Condition, Poor Historian Except as stated in HPI: all other systems reviewed are Neg Past Family Social History Past Medical History diabetes, angina, cocaine use, hypertension, GERD, asthma, depression, neuropathy Past Surgical History Eye surgery Reported Medications Reported Meds & Active Scripts Active Isosorbide Mononitrate 20 Mg Tab 20 Mg PO BID Take 2 doses 7 hours apart. Novolin 70-30 Inj (Insulin Human Isoph/Insulin Regular) 1,000 Unit/10 Ml Vial 40 Units SQ BID Gnp Vitamin B-1 (Thiamine HCl) 100 Mg Tab 100 Mg PO DAILY Omeprazole 20 Mg Tab 20 Mg PO DAILY Aspirin EC (Aspirin) 81 Mg Tabdr 81 Mg PO DAILY Reported Quetiapine (Quetiapine Fumarate) 25 Mg Tab 25 Mg PO DAILY Gabapentin 600 Mg Tab 600 Mg PO BID Bupropion HCl 75 Mg Tab 150 Mg PO BID Hydrochlorothiazide 12.5 Mg Cap 12.5 Mg PO DAILY Ventolin Hfa 18 GM Inh (Albuterol Sulfate) 90 Mcg/Act Aer 2 Puff INH Q6H PRN Methocarbamol 750 Mg Tab 750 Mg PO HS Allergies: Coded Allergies: lisinopril (Verified Adverse Reaction, Intermediate, COUGH, 05/07/17) Family History Both parents had heart disease Social History Admits to smoking half a pack a day for past 2 years. Admits to cocaine last time was yesterday. Drinks about an 8 pack daily Physical Exam Vital Signs Vital Signs Date Time Temp Pulse Resp B/P (MAP) Pulse Ox O2 Delivery O2 Flow Rate FiO2 05/07/17 13:17 90 16 171/81 (111) 96 Room Air 05/07/17 12:20 96 Room Air 05/07/17 12:20 96 Room Air 05/07/17 10:13 80 20 183/84 (117) 97 Room Air 05/07/17 06:12 99.5 106 16 128/73 (91) 100 Physical Exam GENERAL: AA male, somnolent, wakes up briefly then falls back to sleep. HEAD: Atraumatic. Normocephalic. EYES: Pupils equal round and reactive. Extraocular motions intact. ENT: Nose without drainage. Airway patent. NECK: Trachea midline. CARDIOVASCULAR: Regular rate and rhythm without murmurs RESPIRATORY: Clear to auscultation. Breath sounds equal bilaterally. No wheezes GASTROINTESTINAL: Abdomen soft, non-tender, nondistended. No guarding. MUSCULOSKELETAL: Extremities without edema. moves extremities. Does have some brisk movements at times whenever he wakes up and also tries to get out of bed to "grab food". NEUROLOGICAL: somnolent but easily arousable but falls back to sleep. I have to constantly wake him up to obtain a history. But when he wakes up he wants food Laboratory Laboratory Tests Test 05/07/17 06:40 05/07/17 13:12 White Blood Count 15.0 Red Blood Count 4.57 Hemoglobin 13.1 Hematocrit 38.6 Mean Corpuscular Volume 84.3 Mean Corpuscular Hemoglobin 28.6 Mean Corpuscular Hemoglobin Concent 33.9 Red Cell Distribution Width 13.3 Platelet Count 346 Mean Platelet Volume 7.0 Neutrophils (%) (Auto) 72.1 Lymphocytes (%) (Auto) 18.0 Monocytes (%) (Auto) 8.4 Eosinophils (%) (Auto) 0.5 Basophils (%) (Auto) 1.0 Neutrophils # (Auto) 10.8 Lymphocytes # (Auto) 2.7 Monocytes # (Auto) 1.3 Eosinophils # (Auto) 0.1 Basophils # (Auto) 0.2 CBC Comment DIFF FINAL Differential Comment Blood Urea Nitrogen 6 Creatinine 1.00 Random Glucose 144 Calcium Level 8.5 Sodium Level 138 Potassium Level 3.6 Chloride Level 100 Carbon Dioxide Level 31.3 Anion Gap 7 Estimat Glomerular Filtration Rate 92 Total Creatine Kinase 1826 Creatine Kinase MB 10.8 Creatine Kinase MB % 0.6 Troponin I 0.03 Ethyl Alcohol Level LESS THAN 3 Urine Color COLORLESS Urine Turbidity CLEAR Urine pH 7.0 Urine Specific [place] 1.003 Urine Protein NEG Urine Glucose (UA) NEG Urine Ketones NEG Urine Occult Blood NEG Urine Nitrite NEG Urine Bilirubin NEG Urine Urobilinogen LESS THAN 2.0 Urine Leukocyte Esterase NEG Urine RBC 4 Urine Squamous Epithelial Cells <1 Urine Bacteria RARE Microscopic Urinalysis Comment CULT NOT INDICATED Result Diagram: 05/07/1740 05/07/17639 Imaging Last Impressions Chest X-Ray 05/07/17616 Signed Impressions: Service Date/Time: April 06:56 - CONCLUSION: 1. No acute findings. Angel Childers MD Caprini VTE Risk Assessment Caprini VTE Risk Assessment: Mod/High Risk (score >= 2) Caprini Risk Assessment Model Point Value = 1 Point Value = 2 Point Value = 3 Point Value = 5 Age 41-60 Minor surgery BMI > 25 kg/m2 Swollen legs Varicose veins or History of unexplained or recurrent spontaneous Oral contraceptives or hormone replacement Sepsis (< 1 month) Serious lung disease, including pneumonia (< 1 month) Abnormal pulmonary function Acute myocardial infarction Congestive heart failure (< 1 month) History of inflammatory bowel disease Medical patient at bed rest Age 61-74 Arthroscopic surgery Major open surgery (> 45 min) Laparoscopic surgery (> 45 min) Malignancy Confined to bed (> 72 hours) Immobilizing plaster cast Central venous access Age >= 75 History of VTE Family history of VTE Factor V Leiden Prothrombin [id number] Lupus anticoagulant Anticardiolipin antibodies Elevated serum homocysteine Heparin-induced thrombocytopenia Other congenital or acquired thrombophilia Stroke (< 1 month) Elective arthroplasty Hip, pelvis, or leg fracture Acute spinal cord injury (< 1 month) Prophylaxis Regimen Total Risk Factor Score Risk Level Prophylaxis Regimen 0-1 Low Early ambulation 2 Moderate Order ONE of the following: *Sequential Compression Device (SCD) *Heparin 5000 units SQ BID 3-4 Higher Order ONE of the following medications: *Heparin 5000 units SQ TID *Enoxaparin/Lovenox 40 mg SQ daily (WT < 150 kg, CrCl > 30 mL/min) *Enoxaparin/Lovenox 30 mg SQ daily (WT < 150 kg, CrCl > 10-29 mL/min) *Enoxaparin/Lovenox 30 mg SQ BID (WT < 150 kg, CrCl > 30 mL/min) AND/OR *Sequential Compression Device (SCD) 5 or more Highest Order ONE of the following medications: *Heparin 5000 units SQ TID (Preferred with Epidurals) *Enoxaparin/Lovenox 40 mg SQ daily (WT < 150 kg, CrCl > 30 mL/min) *Enoxaparin/Lovenox 30 mg SQ daily (WT < 150 kg, CrCl > 10-29 mL/min) *Enoxaparin/Lovenox 30 mg SQ BID (WT < 150 kg, CrCl > 30 mL/min) AND *Sequential Compression Device (SCD) Assessment and Plan Assessment and Plan rhabdomyolysis/pain: CPK elevated at 1826. Continue to trend. Pt has no hx of CHF. Will give IVF NS@200ml/hr, encourage po hydration. Trop neg. elevated CK- MB. continue to trend. ? chest pains: none at this time. Pt admits to cocaine use yesterday, avoid any beta blockers. Pt apparently complained of some chest pains when he fist came in after speaking w ED physician and RN, pt hasn't had any complaints. Pt tells me that he has pain all over his muscles. He did have a cardiac cath in mar of this year showing Moderate ramus intermedius ostial branch vessel disease at the trifurcation and recommendation was to be on ASA, statin and isosorbide. I have restarted isosorbide and ASA. avoid statin for now. EKG reviewed, no ST changes, normal sinus rhythm. continue w serial CE. Mild leukocytosis: no clear source. monitor. HTN: resumed med. vasotec and hydralazine prn EtOH abuse: CIWA protocol in place. sz/fall precautions. Thiamine/folate/MV DM: resumed home regimen (levemir) cover w low dose ISS and monitor BS. heart healthy/ADA diet. all other chronic conditions: resume meds. Pt has been counseled to quit smoking/drinking and doing drugs, however pt too somnolent. DVT proph: lovenox. Code Status full Discussed Condition With ER physician, RN and patient Zena Canales MD May 07, 2017 14:21
[2017-05-07 14:45] VITALS: BP 164/91; PULSE 104; RESP 16; O2SAT 96
[2017-05-07] MEDS: ACETAMINOPHEN/HYDROcodone 325 MG/7.5 MG TAB PO PRN ×2 (15:35→23:18)
[2017-05-07] MEDS: FOLIC ACID 1 MG TAB PO SCH (16:01)
[2017-05-07] MEDS: THIAMINE HCL 100 MG TAB PO SCH (16:01)
[2017-05-07] MEDS: MULTIVITAMINS/MINERALS THERAPEUTIC TAB PO SCH (16:01)
[2017-05-07] MEDS: SODIUM CHLOR 0.9% 1000 ML INJ 1,000 ML IV SCH (16:02)
[2017-05-07] MEDS: THIAMINE INJ 500 MG in SODIUM CHLOR 0.9% 250 ML INJ 250 ML IV SCH (16:02)
[2017-05-07 16:24] VITALS: BP 137/75; PULSE 107; RESP 20; TEMP 98.7; O2SAT 97
[2017-05-07] MEDS: INSULIN ASPART SUPPLEMENTAL SCALE SQ SCH ×2 (17:00→23:19)
[2017-05-07 22:53] LABS: TROPONIN I 0.02 NG/ML (0.02-0.05)
[2017-05-07] MEDS: INSULIN HUMAN NPH/R 70/30 1,000 UNITS/10 ML VIAL SQ SCH (23:18)
[2017-05-07] MEDS: GABAPENTIN 300 MG CAP PO SCH (23:19)
[2017-05-07] MEDS: buPROPion HCL 75 MG TAB PO SCH (23:19)
[2017-05-07] MEDS: DOCUSATE SODIUM 50 MG/SENNA 8.6 MG TAB PO SCH (23:19)
[2017-05-07] MEDS: SODIUM CHLORIDE 0.9% FLUSH 10 ML FLUSH IV FLUSH SCH (23:21)
[2017-05-08] MEDS: THIAMINE INJ 500 MG in SODIUM CHLOR 0.9% 250 ML INJ 250 ML IV SCH ×2 (01:47→14:36)
[2017-05-08] MEDS: SODIUM CHLOR 0.9% 1000 ML INJ 1,000 ML IV SCH ×3 (02:47→11:01)
[2017-05-08 04:00] VITALS: PULSE 95
[2017-05-08 04:14] VITALS: BP 120/69; PULSE 97; RESP 16; TEMP 98.7; O2SAT 98
[2017-05-08 07:35] LABS: AUTOMATED NEUTROPHIL # 7.1 TH/MM3 (1.8-7.7); BASOPHIL # 0.1 TH/MM3 (0-0.2); BASOPHIL % 0.6 % (0.0-2.0); EOSINOPHIL # 0.2 TH/MM3 (0-0.4); EOSINOPHIL % 1.5 % (0.0-4.0); HEMATOCRIT 39.5 % (39.0-51.0); HEMOGLOBIN 13.2 GM/DL (13.0-17.0); LYMPH % 25.4 % (9.0-44.0); LYMPHOCYTE # 2.9 TH/MM3 (1.0-4.8); MEAN CELL VOLUME 85.1 FL (80.0-100.0); MEAN CORPUSCULAR HEMOGLOBIN 28.4 PG (27.0-34.0); MEAN CORPUSCULAR HGB CONC 33.4 % (32.0-36.0); MEAN PLATELET VOLUME 7.2 FL (7.0-11.0); MONO % 9.4 % (0.0-8.0); MONOCYTE # 1.1 TH/MM3 (0-0.9); NEUT % 63.1 % (16.0-70.0); PLATELET COUNT 350 TH/MM3 (150-450); RED BLOOD COUNT 4.65 MIL/MM3 (4.50-5.90); RED CELL DISTRIBUTION WIDTH 13.5 % (11.6-17.2); WHITE BLOOD COUNT 11.3 TH/MM3 (4.0-11.0)
[2017-05-08 07:59] VITALS: BP 133/70; PULSE 77; RESP 14; TEMP 98; O2SAT 97
[2017-05-08 08:00] LABS: ALBUMIN 2.5 GM/DL (3.4-5.0); AST (GOT) 23 U/L (15-37); BLOOD UREA NITROGEN 8 MG/DL (7-18); CALCIUM 8.5 MG/DL (8.5-10.1); CHLORIDE 104 MEQ/L (98-107); CREATININE 1.03 MG/DL (0.60-1.30); GLOMERULAR FILTRATION RATE 89 ML/MIN (>89); GLUCOSE,RANDOM 113 MG/DL (74-106); SODIUM (NA) 139 MEQ/L (136-145)
[2017-05-08] MEDS: INSULIN ASPART SUPPLEMENTAL SCALE SQ SCH (08:00)
[2017-05-08 08:03] LABS: ALKALINE PHOSPHATASE 89 U/L (45-117); ALT (GPT) 21 U/L (12-78); TOTAL BILIRUBIN ADULT 0.2 MG/DL (0.2-1.0); TOTAL PROTEIN 6.7 GM/DL (6.4-8.2)
[2017-05-08] MEDS ORDERED: ASPIRIN EC 81 MG TABEC PO SCH (09:00)
[2017-05-08] MEDS ORDERED: HYDROCHLOROTHIAZIDE 12.5 MG CAP PO SCH (09:00)
[2017-05-08] MEDS: SODIUM CHLORIDE 0.9% FLUSH 10 ML FLUSH IV FLUSH SCH (09:00)
[2017-05-08] MEDS: DOCUSATE SODIUM 50 MG/SENNA 8.6 MG TAB PO SCH (09:00)
[2017-05-08] MEDS ORDERED: QUEtiapine FUMARATE 25 MG TAB PO SCH (09:00)
[2017-05-08] MEDS: GABAPENTIN 300 MG CAP PO SCH (10:13)
[2017-05-08] MEDS: MULTIVITAMINS/MINERALS THERAPEUTIC TAB PO SCH (10:13)
[2017-05-08] MEDS: ISOSORBIDE MONONITRATE 20 MG TAB PO SCH (10:14)
[2017-05-08] MEDS: buPROPion HCL 75 MG TAB PO SCH (10:15)
[2017-05-08] MEDS: THIAMINE HCL 100 MG TAB PO SCH (10:15)
[2017-05-08] MEDS: FOLIC ACID 1 MG TAB PO SCH (10:15)
[2017-05-08] MEDS: INSULIN HUMAN NPH/R 70/30 1,000 UNITS/10 ML VIAL SQ SCH (10:16)
[2017-05-08] MEDS: ACETAMINOPHEN/HYDROcodone 325 MG/7.5 MG TAB PO PRN (11:00)
--- NOTE | 2017-05-08 11:40 | EKG ---
Date Performed: 05/07/2017 Time Performed: 13:07:51 PTAGE: 61 years EKG: Sinus rhythm NORMAL ECG PREVIOUS TRACING : 05/07/2017 06.24 Since the previous tracing, no significant change noted DOCTOR: Tre Mccloud Interpretating Date/Time 05/08/2017 11:33:59
[2017-05-08] MEDS ORDERED: WALKER WHEELS/F1 MIS (12:30)
--- NOTE | 2017-05-08 12:47 | HHI.PR ---
Subjective Remarks Patient says he is feeling all right. Denies any chest pain or shortness of breath. Says he is living with a friend. Patient says he is having difficulty walking due to pain. Nursing reports the patient is walking around the room without difficulty. Objective Vital Signs Date Time Temp Pulse Resp B/P (MAP) Pulse Ox O2 Delivery O2 Flow Rate FiO2 05/08/17 07:59 98.0 77 14 133/70 (91) 97 05/08/17 04:14 98.7 97 16 120/69 (86) 98 05/08/17 04:00 95 05/07/17 16:24 98.7 107 20 137/75 (95) 97 05/07/17 14:45 104 16 164/91 (115) 96 Room Air 05/07/17 13:17 90 16 171/81 (111) 96 Room Air Result Diagram: 05/08/17 0630 05/08/17 0630 Objective Remarks GENERAL: Sitting up on edge of bed eating breakfast. Appears comfortable. SKIN: Warm and dry. HEAD: Normocephalic. EYES: No scleral icterus. No injection or drainage. NECK: Supple, trachea midline. No JVD. CARDIOVASCULAR: Regular rate and rhythm without murmurs, gallops, or rubs. RESPIRATORY: Breath sounds equal bilaterally. No accessory muscle use. GASTROINTESTINAL: Abdomen soft, non-tender, nondistended. MUSCULOSKELETAL: No cyanosis, or edema. BACK: Nontender without obvious deformity. No CVA tenderness. A/P Assessment and Plan //rhabdomyolysis/pain: CPK elevated at 1826. Continue to trend. Pt has no hx of CHF. Will give IVF NS@200ml/hr, encourage po hydration. Trop neg. elevated CK- MB. continue to trend. = CK much improved. 599. Secondary to cocaine. Stop cocaine. //chest pains: none at this time. Pt admits to cocaine use yesterday, avoid any beta blockers. Pt apparently complained of some chest pains when he fist came in after speaking w ED physician and RN, pt hasn't had any complaints. Pt tells me that he has pain all over his muscles. He did have a cardiac cath in mar of this year showing Moderate ramus intermedius ostial branch vessel disease at the trifurcation and recommendation was to be on ASA, statin and isosorbide. I have restarted isosorbide and ASA. avoid statin for now. EKG reviewed, no ST changes, normal sinus rhythm. continue w serial CE. =Likely secondary to cocaine. Stop the cocaine. //Mild leukocytosis: no clear source. monitor. HTN: resumed med. vasotec and hydralazine prn = Blood pressure acceptable. Continue home regimen. EtOH abuse: CIWA protocol in place. sz/fall precautions. Thiamine/folate/MV DM: resumed home regimen (levemir) cover w low dose ISS and monitor BS. heart healthy/ADA diet. all other chronic conditions: resume meds. Pt has been counseled to quit smoking/drinking and doing drugs, however pt too somnolent. DVT proph: lovenox. Code Status full Discharge Planning Discharge home in good condition. Continue diabetic diet. Activity ad vasquez. please see discharge medication reconciliation. Follow with primary care. Sterling You MD May 08, 2017 12:47
--- NOTE | 2017-05-08 12:54 | HHI.FF ---
Face to Face Verification Diagnosis: (1) Cocaine abuse (2) Rhabdomyolysis Physical Therapy Order: Evaluate and Treat Home Health Nursing Order: Nursing assessment with vital signs [place]ider Order: To Provide: Long range planning I have seen patient Rubia Pruett on 05/08/17. My clinical findings support the need for the requested home health care services because: Need for psychosocial assistance I certify that my clinical findings support that this patient is homebound because: Need for psychosocial assistance Sterling You MD May 08, 2017 12:54
[2017-05-08] MEDS: ENOXAPARIN SODIUM 40 MG/0.4 ML SYRINGE SQ SCH (14:39)
[2017-05-08 16:34] VITALS: BP 157/83; PULSE 86; RESP 14; TEMP 96.8; O2SAT 98
[2017-05-09] MEDS ORDERED: THIAMINE IV SCH (14:00)
[2017-05-09] MEDS ORDERED: SODIUM CHLORID 0.9% IV SCH (14:00)
== END 2017-05-08 18:45 | disposition home or self-care (01) ==
LOC: NEPE 06:03 → NEDH 10:56 → NEPFCDU 15:12
PROVIDERS: ADMIT Internal Medicine; ATTEND Internal Medicine
DX: M62.82 Rhabdomyolysis (principal); F14.90 Cocaine use, unspecified, uncomplicated; D72.829 Elevated white blood cell count, unspecified; R40.0 Somnolence; R26.2 Difficulty in walking, not elsewhere classified; R07.9 Chest pain, unspecified; I10 Essential (primary) hypertension; E78.00 Pure hypercholesterolemia, unspecified; J45.909 Unspecified asthma, uncomplicated; K21.9 Gastro-esophageal reflux disease without esophagitis; B19.20 Unspecified viral hepatitis C without hepatic coma; G47.30 Sleep apnea, unspecified; F41.9 Anxiety disorder, unspecified; F32.9 Major depressive disorder, single episode, unspecified; F10.10 Alcohol abuse, uncomplicated; F12.90 Cannabis use, unspecified, uncomplicated; F17.200 Nicotine dependence, unspecified, uncomplicated; Z79.899 Other long term (current) drug therapy; Z79.82 Long term (current) use of aspirin
CPT/HCPCS: 71045; 80048; 80053; 80307; 81001; 82550; 82552; 82948; 84484; 85025; 93005; 96361; 96365; 96366; 96372; 97163; 99285; G0378; G8987; G8988; J1650; J1815; J3411; J7030; J7050

== ENCOUNTER 2017-05-21 07:48 | Observation (INO) | payer OTHER ==
[~2017-05-21] VITALS: Ht 167.6 cm; Wt 78.0 kg
[2017-05-21] VITALS (9 sets, daily range): BP systolic 128–189; BP diastolic 61–100; PULSE 75–104; RESP 17–21; TEMP 98–98.5; O2SAT 98–100
[~2017-05-21 07:48] MED LIST changes: +WALKER WHEELS/F1 MIS
--- NOTE | 2017-05-21 10:25 | PD ---
HPI Chief Complaint: chest pain Time Seen by Provider: 10:19 Travel History International Travel<30 days: No Contact w/Intl Traveler<30days: No Traveled to known affect area: No History of Present Illness HPI 61-year-old male states that he had alcohol late last night and did cocaine shortly prior to arrival. He notes that he felt out of sorts and has chest heaviness. He states that he is also a diabetic. He states that he is having no other significant complaints other than he has neuropathy and sometimes gets tingling in his feet. Quality is tightness. Severity is moderate. He denies specific modifying factors. He is a poor historian and appears actively under the influence of cocaine so history is limited. PFSH Past Medical History Hx Anticoagulant Therapy: Yes (ASPIRIN) Asthma: No Blood Disorders: No Anxiety: Yes Depression: Yes Heart Rhythm Problems: No Cancer: No Cardiac Catheterization: No Cardiovascular Problems: Yes High Cholesterol: Yes Chest Pain: Yes Congestive Heart Failure: No COPD: No Diabetes: Yes Diminished Hearing: No Endocrine: Yes Gastrointestinal Disorders: Yes GERD: Yes Genitourinary: No Hepatitis: Yes (C) Hypertension: Yes Immune Disorder: No Implanted Vascular Access Dvce: No Musculoskeletal: No Neurologic: No Psychiatric: Yes Reproductive: No Respiratory: No Immunizations Current: Yes Sleep Apnea: Yes (CPAP) Past Surgical History Abdominal Surgery: No Cardiac Surgery: No Coronary Artery Bypass Graft: No Endocrine Surgery: No Eye Surgery: Yes (RETINA SOCKET REPAIR) Genitourinary Surgery: No Gynecologic Surgery: No Thoracic Surgery: No Other Surgery: Yes (RIGHT HAND, RIGHT EYE) Social History Alcohol Use: Yes (SIX PACK PER DAY) Tobacco Use: Yes (1 PPD) Substance Use: Yes (coccaine ,etoh) Allergies-Medications (Allergen,Severity, Reaction): Coded Allergies: lisinopril (Verified Adverse Reaction, Intermediate, COUGH, 05/07/17) Reported Meds & Prescriptions Reported Meds & Active Scripts Active Walker with Front Wheels (Device) 1 Mis Mis Ea .XX DIRECTED Isosorbide Mononitrate 20 Mg Tab 20 Mg PO BID Take 2 doses 7 hours apart. Novolin 70-30 Inj (Insulin Human Isoph/Insulin Regular) 1,000 Unit/10 Ml Vial 40 Units SQ BID Gnp Vitamin B-1 (Thiamine HCl) 100 Mg Tab 100 Mg PO DAILY Omeprazole 20 Mg Tab 20 Mg PO DAILY Aspirin EC (Aspirin) 81 Mg Tabdr 81 Mg PO DAILY Reported Quetiapine (Quetiapine Fumarate) 25 Mg Tab 25 Mg PO DAILY Gabapentin 600 Mg Tab 600 Mg PO BID Bupropion HCl 75 Mg Tab 150 Mg PO BID Hydrochlorothiazide 12.5 Mg Cap 12.5 Mg PO DAILY Ventolin Hfa 18 GM Inh (Albuterol Sulfate) 90 Mcg/Act Aer 2 Puff INH Q6H PRN Methocarbamol 750 Mg Tab 750 Mg PO HS Review of Systems ROS Limitations: Poor Historian Except as stated in HPI: all other systems reviewed are Neg Physical Exam Exam Limitations: Poor Historian Narrative GENERAL: 61-year-old male who appears under the influence SKIN: Focused skin assessment warm/dry. HEAD: Atraumatic. Normocephalic. EYES: Pupils equal and round. No scleral icterus. No injection or drainage. ENT: No nasal bleeding or discharge. Mucous membranes pink and moist. NECK: Trachea midline. CARDIOVASCULAR: Regular rate and rhythm. RESPIRATORY: No accessory muscle use. Clear to auscultation. Breath sounds equal bilaterally. GASTROINTESTINAL: Abdomen soft, non-tender, nondistended. MUSCULOSKELETAL: No obvious deformities. No clubbing. No cyanosis. No edema. NEUROLOGICAL: Awake and alert. No obvious cranial nerve deficits. Motor grossly within normal limits. Slow slurred speech. Data Data Last Documented VS Vital Signs Date Time Temp Pulse Resp B/P (MAP) Pulse Ox O2 Delivery O2 Flow Rate FiO2 05/21/17 10:21 99 Room Air 05/21/17 10:18 81 21 05/21/17 07:53 98.3 Orders Orders Electrocardiogram (05/21/17 10:19) B-Type Natriuretic Peptide (05/21/17 10:19) Ckmb (Isoenzyme) Profile (05/21/17 10:19) Complete Blood Count With Diff (05/21/17 10:19) Comprehensive Metabolic Panel (05/21/17 10:19) Magnesium (Mg) (05/21/17 10:19) Prothrombin Time / Inr (Pt) (05/21/17 10:19) Act Partial Throm Time (Ptt) (05/21/17 10:19) Troponin I (05/21/17 10:19) Ecg Monitoring (05/21/17 10:19) Bilateral Bp Monitoring (05/21/17 10:19) Iv Access Insert/Monitor (05/21/17 10:19) Oximetry (05/21/17 10:19) Sodium Chloride 0.9% Flush (Ns Flush) (05/21/17 10:30) Nitroglycerin Sl (Nitrostat Sl) (05/21/17 10:30) Chest, Pa & Lat (05/21/17 10:19) Drug Screen, Random Urine (05/21/17 10:19) Alcohol (Ethanol) (05/21/17 10:19) Ct Brain W/O Iv Contrast(Rout) (05/21/17 ) Aspirin (Aspirin) (05/21/17 11:15) CKMB (05/21/17 10:30) CKMB% (05/21/17 10:30) Admit Order (Ed Use Only) (05/21/17 12:10) Sodium Chlor 0.9% 1000 Ml Inj (Ns 1000 M (05/21/17 12:15) Labs Laboratory Tests Test 05/21/17 10:20 05/21/17 10:30 Urine Opiates Screen NEG Urine Barbiturates Screen NEG Urine Amphetamines Screen NEG Urine Benzodiazepines Screen NEG Urine Cocaine Screen POS Urine Cannabinoids Screen NEG White Blood Count 8.7 TH/MM3 Red Blood Count 5.40 MIL/MM3 Hemoglobin 15.5 GM/DL Hematocrit 46.0 % Mean Corpuscular Volume 85.2 FL Mean Corpuscular Hemoglobin 28.7 PG Mean Corpuscular Hemoglobin Concent 33.7 % Red Cell Distribution Width 13.8 % Platelet Count 350 TH/MM3 Mean Platelet Volume 7.2 FL Neutrophils (%) (Auto) 57.0 % Lymphocytes (%) (Auto) 31.6 % Monocytes (%) (Auto) 8.4 % Eosinophils (%) (Auto) 2.2 % Basophils (%) (Auto) 0.8 % Neutrophils # (Auto) 5.0 TH/MM3 Lymphocytes # (Auto) 2.8 TH/MM3 Monocytes # (Auto) 0.7 TH/MM3 Eosinophils # (Auto) 0.2 TH/MM3 Basophils # (Auto) 0.1 TH/MM3 CBC Comment DIFF FINAL Differential Comment Prothrombin Time 10.7 SEC Prothromb Time International Ratio 1.1 RATIO Activated Partial Thromboplast Time 26.6 SEC Blood Urea Nitrogen 7 MG/DL Creatinine 1.12 MG/DL Random Glucose 90 MG/DL Total Protein 8.8 GM/DL Albumin 3.6 GM/DL Calcium Level 8.9 MG/DL Magnesium Level 2.2 MG/DL Alkaline Phosphatase 117 U/L Aspartate Amino Transf (AST/SGOT) 35 U/L Alanine Aminotransferase (ALT/SGPT) 35 U/L Total Bilirubin 0.3 MG/DL Sodium Level 138 MEQ/L Potassium Level 3.7 MEQ/L Chloride Level 103 MEQ/L Carbon Dioxide Level 28.3 MEQ/L Anion Gap 7 MEQ/L Estimat Glomerular Filtration Rate 81 ML/MIN Total Creatine Kinase 585 U/L Creatine Kinase MB 9.2 NG/ML Creatine Kinase MB % 1.6 % Troponin I 0.05 NG/ML B-Type Natriuretic Peptide 11 PG/ML Ethyl Alcohol Level 4 MG/DL MDM Medical Decision Making Medical Screen Exam Complete: Yes Emergency Medical Condition: Yes Medical Record Reviewed: Yes (Past history confirmed, cath 03/17/17 Moderate ramus intermedius ostial branch vessel disease at the trifurcation.) Interpretation(s) CBC & BMP Diagram 05/21/17 10:30 Total Protein 8.8 H, Albumin 3.6, Calcium Level 8.9, Magnesium Level 2.2, Alkaline Phosphatase 117, Aspartate Amino Transf (AST/SGOT) 35, Alanine Aminotransferase (ALT/SGPT) 35, Total Bilirubin 0.3 Last [address] 05/21/17 0000 Signed Impressions: Service Date/Time: , May 21, 2017 10:36 - CONCLUSION: Stable noncontrast head CT. No acute intracranial abnormality is identified. Corey Ayala MD Differential Diagnosis Cocaine abuse, vasospasm, HI, musculoskeletal, alcohol intoxication, intracranial Narrative Course Will check blood work, imaging and reevaluate, given aspirin and nitroglycerin Patient with mild CK elevation. Given risk factors and cocaine use will admit for serial enzymes. Patient agrees to this Diagnosis Primary Impression: Chest pain Qualified Codes: R07.9 - Chest pain, unspecified Additional Impression: Cocaine abuse Admitting Information Admitting Physician Requests: Kristine Aviles MD May 21, 2017 10:25
[2017-05-21] MEDS ORDERED: NITROGLYCERIN 0.4 MG SL 25 TABS/BTL SL ONE (10:30)
[2017-05-21] MEDS ORDERED: SODIUM CHLORIDE 0.9% FLUSH 10 ML FLUSH IVF PRN (10:30)
--- NOTE | 2017-05-21 10:50 | RADRPT ---
EXAM DATE/TIME: 05/21/2017 10:36 [facility] COMPARISON: CT BRAIN W/O CONTRAST, March 05, 2017, 5:30. INDICATIONS : Altered mental status. RADIATION DOSE: 37.56 CTDIvol (mGy) MEDICAL HISTORY : Hypertension. Hepatitis C. diabetes SURGICAL HISTORY : None. ENCOUNTER: Initial ACUITY: 1 day PAIN SCALE: 0/10 LOCATION: cranial TECHNIQUE: Multiple contiguous axial images were obtained of the head. Using automated exposure control and adj ustment of the mA and/or kV according to patient size, radiation dose was kept as low as reasonably a chievable to obtain optimal diagnostic quality images. DICOM format image data is available electro nically for review and comparison. FINDINGS: CEREBRUM: The ventricles are normal. No evidence of midline shift, mass lesion, hemorrhage or acute infarction . No extra-axial fluid collections are seen. POSTERIOR FOSSA: The cerebellum and brainstem are intact. The 4th ventricle is midline. The cerebellopontine angle i s unremarkable. EXTRACRANIAL: The visualized sinuses are clear. There is metallic mesh related to reconstruction of the right orbit al floor. SKULL: The calvaria is intact. No evidence of skull fracture. CONCLUSION: Stable noncontrast head CT. No acute intracranial abnormality is identified. Corey Ayala MD on May 21, 2017 at 10:44 Board Certified Radiologist. This report was verified electronically.
[2017-05-21 11:01] LABS: BASOPHIL # 0.1 TH/MM3 (0-0.2); BASOPHIL % 0.8 % (0.0-2.0); EOSINOPHIL # 0.2 TH/MM3 (0-0.4); EOSINOPHIL % 2.2 % (0.0-4.0); HEMOGLOBIN 15.5 GM/DL (13.0-17.0); LYMPH % 31.6 % (9.0-44.0); LYMPHOCYTE # 2.8 TH/MM3 (1.0-4.8); MEAN CELL VOLUME 85.2 FL (80.0-100.0); MEAN CORPUSCULAR HEMOGLOBIN 28.7 PG (27.0-34.0); MEAN CORPUSCULAR HGB CONC 33.7 % (32.0-36.0); MEAN PLATELET VOLUME 7.2 FL (7.0-11.0); MONO % 8.4 % (0.0-8.0); MONOCYTE # 0.7 TH/MM3 (0-0.9); PLATELET COUNT 350 TH/MM3 (150-450); RED CELL DISTRIBUTION WIDTH 13.8 % (11.6-17.2); WHITE BLOOD COUNT 8.7 TH/MM3 (4.0-11.0)
[2017-05-21 11:11] LABS: INTERNATIONAL NORMALIZED RATIO 1.1 RATIO; PROTHROMBIN TIME - PATIENT 10.7 SEC (9.8-11.6)
[2017-05-21 11:14] LABS: ALBUMIN 3.6 GM/DL (3.4-5.0); ALT (GPT) 35 U/L (12-78); AST (GOT) 35 U/L (15-37); BICARBONATE 28.3 MEQ/L (21.0-32.0); BLOOD UREA NITROGEN 7 MG/DL (7-18); CALCIUM 8.9 MG/DL (8.5-10.1); CHLORIDE 103 MEQ/L (98-107); CREATININE 1.12 MG/DL (0.60-1.30); GLOMERULAR FILTRATION RATE 81 ML/MIN (>89); GLUCOSE,RANDOM 90 MG/DL (74-106); MAGNESIUM 2.2 MG/DL (1.5-2.5); SODIUM (NA) 138 MEQ/L (136-145)
[2017-05-21] MEDS ORDERED: ASPIRIN 325 MG TAB PO ONE (11:15)
[2017-05-21 11:18] LABS: ALKALINE PHOSPHATASE 117 U/L (45-117); TOTAL BILIRUBIN ADULT 0.3 MG/DL (0.2-1.0); TOTAL PROTEIN 8.8 GM/DL (6.4-8.2); TROPONIN I 0.05 NG/ML (0.02-0.05)
--- NOTE | 2017-05-21 12:05 | RADRPT ---
EXAM DATE/TIME: 05/21/2017 10:51 [facility] COMPARISON: CHEST SINGLE AP, May 07, 2017, 6:56. CHEST PA & LAT, June 08, 2016, 4:14. INDICATIONS : Chest pain. MEDICAL HISTORY : Chronic obstructive pulmonary disease. Hypertension SURGICAL HISTORY : None. ENCOUNTER: Initial ACUITY: 1 day PAIN SCORE: 0/10 LOCATION: Bilateral chest FINDINGS: Frontal and lateral views of the chest demonstrate a normal-sized cardiac silhouette. EKG lines overl ie the patient. No effusion, consolidation, or pneumothorax is visualized. The bones and soft tissues demonstrate no acute finding. CONCLUSION: No acute cardiopulmonary abnormality is identified. Corey Ayala MD on May 21, 2017 at 12:02 Board Certified Radiologist. This report was verified electronically.
[2017-05-21] MEDS ORDERED: SODIUM CHLOR 0.9% 1000 ML INJ 1,000 ML IV ONE (12:15)
[2017-05-21] MEDS ORDERED: ACETAMINOPHEN 500 MG CPLT PO PRN (13:00)
[2017-05-21] MEDS ORDERED: NITROGLYCERIN 0.4 MG SL 25 TABS/BTL SL PRN (13:00)
[2017-05-21] MEDS ORDERED: ONDANSETRON HCL 4 MG/2 ML VIAL IV PUSH PRN (13:00)
--- NOTE | 2017-05-21 14:02 | HHI.HP ---
HPI Primary Care Physician [facility] Chief Complaint Chest pain History of Present Illness 61-year-old male with history of hypertension, hyperlipidemia, GERD, substance induced mood disorder, and recent cocaine use presents the emergency room for further evaluation of chest pain. HPI difficult to obtain, appears to be under the influence of drugs. Developed chest pain around 0400 yesterday morning, before using cocaine this morning at 2 am. Characterized as heaviness. Location substernal. No radiation of pain. Duration constant, until using cocaine. Reports he used cocaine to "get rid of the chest pain." Unsure if pain subsided after using cocaine, also reports chest discomfort improved after x1 SL nitro tablet. Denies any current pain. Endorses similar pain in the past, does not elaborate. Restless and drowsy during interview, with jerky extremity and head movements. Requests to eat, angry about NPO status. Review of Systems Unable to obtain ROM-patient not cooperative. Past Family Social History Allergies: Coded Allergies: lisinopril (Verified Adverse Reaction, Intermediate, COUGH, 05/07/17) Past Medical History Obtained from EMR-Hyperlipidemia, diabetes, hypertension, hepatitis C, mood disorder, GERD, substance use-long standing Past Surgical History Obtained from EMR-read no sac repair, right hand surgery Reported Medications Reported Meds & Active Scripts Active-per ER record following medications-DID NOT verify with patient due to uncooperativeness Walker with Front Wheels (Device) 1 Mis Mis Ea .XX DIRECTED Isosorbide Mononitrate 20 Mg Tab 20 Mg PO BID Take 2 doses 7 hours apart. Novolin 70-30 Inj (Insulin Human Isoph/Insulin Regular) 1,000 Unit/10 Ml Vial 40 Units SQ BID Gnp Vitamin B-1 (Thiamine HCl) 100 Mg Tab 100 Mg PO DAILY Omeprazole 20 Mg Tab 20 Mg PO DAILY Aspirin EC (Aspirin) 81 Mg Tabdr 81 Mg PO DAILY Quetiapine (Quetiapine Fumarate) 25 Mg Tab 25 Mg PO DAILY Gabapentin 600 Mg Tab 600 Mg PO BID Bupropion HCl 75 Mg Tab 150 Mg PO BID Hydrochlorothiazide 12.5 Mg Cap 12.5 Mg PO DAILY Ventolin Hfa 18 GM Inh (Albuterol Sulfate) 90 Mcg/Act Aer 2 Puff INH Q6H PRN Methocarbamol 750 Mg Tab 750 Mg PO HS Active Ordered Medications Current Medications Medications (Trade) Dose Ordered Sig/Salas Route Start Time Stop Time Status Last Admin (NS Flush) 2 ml UNSCH PRN IVF 05/21/17 10:30 (NS Flush) 2 ml BID IV FLUSH 05/21/17 21:00 (Tylenol) 500 mg Q4H PRN PO 05/21/17 13:00 (Zofran Inj) 4 mg Q6H PRN IV PUSH 05/21/17 13:00 (Nitrostat Sl) 0.4 mg Q5M PRN SL 05/21/17 13:00 (Aspirin) 325 mg DAILY PO 05/22/17 09:00 Social History Endorses diabetes. Medical records indicate hypertension, hyperlipidemia, and coronary artery disease found on catheterization Mar 2017. Cocaine use, last used 0200. Reports frequent use, does not elaborate. Current smoker. Past cardiac testing 03/17/2017 Cardiac catheterization (Dr. Hernandez)-Conclusions 1. Moderate ramus intermedius ostial branch vessel disease at the trifurcation. 2. Normal left- sided filling pressures. PLAN We will initiate medical therapy. This would be a potentially difficult intervention given that the ostium is at the trifurcation of the LAD and circumflex. Will start him on aspirin, statin, isosorbide. He can be discharged and follow up with his primary care physician. Physical Exam Vital Signs Vital Signs Date Time Temp Pulse Resp B/P (MAP) Pulse Ox O2 Delivery O2 Flow Rate FiO2 05/21/17 10:21 99 Room Air 05/21/17 10:18 81 21 189/100 (129) 99 05/21/17 07:53 98.3 91 17 171/82 (111) 100 Physical Exam GENERAL: Drowsy, difficult to arouse, speaks brief conversation before nodding off to sleep, WN, WD, NAD, -Polish male HEAD: NC, AT CV: RRR, without murmur, rub, gallop, no JVD, S1-S2 no S3-S4. RESP: Clear lungs throughout bilateral, no crackles, wheeze, rhonchi, symmetrical chest rise, nonlabored, able to speak in full sentences ABD: Soft, NT, ND, no masses, positive bowel tones EXT: Pulses +2-4, no dependent edema MS: Normal tone x4 extremities with involuntarily jerking movements of head and extremities when awaken, no jerky movements seen during restful periods, no obvious deformities, full range of motion NEURO: CN II through CN XII grossly intact, motor strength 5/5 PSYCH: A+Ox3, flat affect, appropriate speech, questionable insight and judgment SKIN: Normal turgor, normal texture Laboratory Laboratory Tests Test 05/21/17 10:20 05/21/17 10:30 05/21/17 13:20 Urine Opiates Screen NEG Urine Barbiturates Screen NEG Urine Amphetamines Screen NEG Urine Benzodiazepines Screen NEG Urine Cocaine Screen POS Urine Cannabinoids Screen NEG White Blood Count 8.7 Red Blood Count 5.40 Hemoglobin 15.5 Hematocrit 46.0 Mean Corpuscular Volume 85.2 Mean Corpuscular Hemoglobin 28.7 Mean Corpuscular Hemoglobin Concent 33.7 Red Cell Distribution Width 13.8 Platelet Count 350 Mean Platelet Volume 7.2 Neutrophils (%) (Auto) 57.0 Lymphocytes (%) (Auto) 31.6 Monocytes (%) (Auto) 8.4 Eosinophils (%) (Auto) 2.2 Basophils (%) (Auto) 0.8 Neutrophils # (Auto) 5.0 Lymphocytes # (Auto) 2.8 Monocytes # (Auto) 0.7 Eosinophils # (Auto) 0.2 Basophils # (Auto) 0.1 CBC Comment DIFF FINAL Differential Comment Prothrombin Time 10.7 Prothromb Time International Ratio 1.1 Activated Partial Thromboplast Time 26.6 Blood Urea Nitrogen 7 Creatinine 1.12 Random Glucose 90 Total Protein 8.8 Albumin 3.6 Calcium Level 8.9 Magnesium Level 2.2 Alkaline Phosphatase 117 Aspartate Amino Transf (AST/SGOT) 35 Alanine Aminotransferase (ALT/SGPT) 35 Total Bilirubin 0.3 Sodium Level 138 Potassium Level 3.7 Chloride Level 103 Carbon Dioxide Level 28.3 Anion Gap 7 Estimat Glomerular Filtration Rate 81 Total Creatine Kinase 585 Creatine Kinase MB 9.2 Creatine Kinase MB % 1.6 Troponin I 0.05 B-Type Natriuretic Peptide 11 Ethyl Alcohol Level 4 Result Diagram: 05/21/17 1030 05/21/17 1030 Imaging Last 48 hours Impressions Chest X-Ray 05/21/17 1019 Signed Impressions: Service Date/Time: May 10:51 - CONCLUSION: No acute cardiopulmonary abnormality is identified. Corey Ayala MD Head CT 05/21/17 0000 Signed Impressions: Service Date/Time: May 10:36 - CONCLUSION: Stable noncontrast head CT. No acute intracranial abnormality is identified. Corey Ayala MD Course EKG NSR, no st t segment changes Caprini VTE Risk Assessment Caprini VTE Risk Assessment: No/Low Risk (score <= 1) Caprini Risk Assessment Model Point Value = 1 Point Value = 2 Point Value = 3 Point Value = 5 Age 41-60 Minor surgery BMI > 25 kg/m2 Swollen legs Varicose veins or History of unexplained or recurrent spontaneous Oral contraceptives or hormone replacement Sepsis (< 1 month) Serious lung disease, including pneumonia (< 1 month) Abnormal pulmonary function Acute myocardial infarction Congestive heart failure (< 1 month) History of inflammatory bowel disease Medical patient at bed rest Age 61-74 Arthroscopic surgery Major open surgery (> 45 min) Laparoscopic surgery (> 45 min) Malignancy Confined to bed (> 72 hours) Immobilizing plaster cast Central venous access Age >= 75 History of VTE Family history of VTE Factor V Leiden Prothrombin 13459C Lupus anticoagulant Anticardiolipin antibodies Elevated serum homocysteine Heparin-induced thrombocytopenia Other congenital or acquired thrombophilia Stroke (< 1 month) Elective arthroplasty Hip, pelvis, or leg fracture Acute spinal cord injury (< 1 month) Prophylaxis Regimen Total Risk Factor Score Risk Level Prophylaxis Regimen 0-1 Low Early ambulation 2 Moderate Order ONE of the following: *Sequential Compression Device (SCD) *Heparin 5000 units SQ BID 3-4 Higher Order ONE of the following medications: *Heparin 5000 units SQ TID *Enoxaparin/Lovenox 40 mg SQ daily (WT < 150 kg, CrCl > 30 mL/min) *Enoxaparin/Lovenox 30 mg SQ daily (WT < 150 kg, CrCl > 10-29 mL/min) *Enoxaparin/Lovenox 30 mg SQ BID (WT < 150 kg, CrCl > 30 mL/min) AND/OR *Sequential Compression Device (SCD) 5 or more Highest Order ONE of the following medications: *Heparin 5000 units SQ TID (Preferred with Epidurals) *Enoxaparin/Lovenox 40 mg SQ daily (WT < 150 kg, CrCl > 30 mL/min) *Enoxaparin/Lovenox 30 mg SQ daily (WT < 150 kg, CrCl > 10-29 mL/min) *Enoxaparin/Lovenox 30 mg SQ BID (WT < 150 kg, CrCl > 30 mL/min) AND *Sequential Compression Device (SCD) Assessment and Plan Assessment and Plan #1 Chest pain-admitted to chest pain center. Begin ACS protocol. First troponin mildly elevated at 0.05, likely from recent cocaine use and has had multiple visits in the past with the same mild elevation after using cocaine. Will be seen and evaluated by Dr. Luna. Most likely will not complete any further cardiac testing and discharge home after evaluation by ex chef. Patient recent cardiac catheterization Mar 2017 with conclusion of moderate ramus intermedius ostial branch disease at the trifurcation. Since cardiac catheterization patient has been admitted to [facility] on 04/02/17 for chest pain, ruled out at that time, seen by Dr. Champion and subsequently discharged home. Will reevaluate patient once more alert to determine if he has been taking his home medications. #2 History of diabetes-SSI low dose coverage #3 History of hyperlipidemia-plan to reorder home medications after names and dosages known #4 History of hypertension-plan to reorder home medications after names and dosages known #5 Tobacco use-strongly encouraged and stressed importance of tobacco cessation. Instructed to quit smoking. #6 Cocaine use-instructed to quit using cocaine, discussed risk including [place] and possible with cocaine use, hold any beta blockers Upon leaving room patient became angry about NPO status, stating he will sign himself out if he doesn't receive any food. Discussed with RN. Patient agrees to stay at this time, ice chips and water allowed at this time. 1745-Seen and evaluated by Dr. Luna. No further cardiac testing. Monitor overnight. Discharge in morning. Cata Doshi May 21, 2017 14:02
[2017-05-21 14:22] LABS: TROPONIN I 0.06 NG/ML (0.02-0.05)
[2017-05-21] MEDS ORDERED: SODIUM CHLOR 0.9% 1000 ML INJ 1,000 ML IV SCH (15:30)
[2017-05-21] MEDS: SODIUM CHLOR 0.9% 1000 ML INJ 1,000 ML IV SCH (15:45)
[2017-05-21 17:19] LABS: TROPONIN I 0.06 NG/ML (0.02-0.05)
--- NOTE | 2017-05-21 17:53 | EKG ---
Date Performed: 05/21/2017 Time Performed: 13:10:04 PTAGE: 61 years EKG: Sinus rhythm POSSIBLE LEFT ATRIAL ENLARGEMENT BORDERLINE ECG Since PREVIOUS TRACING , no significant change noted PREVIOUS TRACIN05/21/2017 10.19 DOCTOR: Consuelo Luna Interpretating Date/Time 05/21/2017 17:52:38
--- NOTE | 2017-05-21 17:57 | EKG ---
Date Performed: 05/21/2017 Time Performed: 10:19:22 PTAGE: 61 years EKG: Sinus rhythm POSSIBLE RIGHT VENTRICULAR CONDUCTION DELAY BORDERLINE ECG Since PREVIOUS TRACING , no significant change noted DOCTOR: Consuelo Luna Interpretating Date/Time 05/21/2017 17:56:08
[2017-05-21] MEDS ORDERED: DEXTROSE 50% IN WATER 50 ML VIAL(D50) IV PUSH PRN (18:15)
[2017-05-21] MEDS ORDERED: GLUCAGON 1 MG/ML VIAL OTHER PRN (18:15)
[2017-05-21] MEDS ORDERED: amLODIPine BESYLATE 5 MG TAB PO ONE (18:45)
[2017-05-21] MEDS: HYDROCHLOROTHIAZIDE 12.5 MG CAP PO SCH (18:53)
[2017-05-21] MEDS: QUEtiapine FUMARATE 25 MG TAB PO SCH (18:53)
[2017-05-21] MEDS: THIAMINE HCL 100 MG TAB PO SCH (18:53)
[2017-05-21] MEDS: GABAPENTIN 300 MG CAP PO SCH (20:38)
[2017-05-21] MEDS: PANTOPRAZOLE SOD 20 MG DELAYED RELEASE TAB PO SCH (20:38)
[2017-05-21] MEDS: SODIUM CHLORIDE 0.9% FLUSH 10 ML FLUSH IV FLUSH SCH (20:39)
[2017-05-21] MEDS: INSULIN ASPART SUPPLEMENTAL SCALE SQ SCH (21:00)
[2017-05-21] MEDS: buPROPion HCL 75 MG TAB PO SCH (21:30)
[2017-05-22 00:25] VITALS: PULSE 75
[2017-05-22] MEDS: SODIUM CHLOR 0.9% 1000 ML INJ 1,000 ML IV SCH (01:53)
[2017-05-22 04:48] VITALS: BP 140/80; PULSE 89; RESP 18; TEMP 98.1; O2SAT 100
[2017-05-22] MEDS: INSULIN ASPART SUPPLEMENTAL SCALE SQ SCH (08:00)
[2017-05-22 08:05] VITALS: BP 155/78; PULSE 83; RESP 18; TEMP 97.8; O2SAT 98
--- NOTE | 2017-05-22 08:14 | PD.CARD.PN ---
Subjective Subjective Remarks No further chest discomfort. No complaints overnight. Objective Medications Current Medications Medications (Trade) Dose Ordered Sig/Salas Route Start Time Stop Time Status Last Admin (NS Flush) 2 ml UNSCH PRN IVF 05/21/17 10:30 (NS Flush) 2 ml BID IV FLUSH 05/21/17 21:00 (Tylenol) 500 mg Q4H PRN PO 05/21/17 13:00 (Zofran Inj) 4 mg Q6H PRN IV PUSH 05/21/17 13:00 (Nitrostat Sl) 0.4 mg Q5M PRN SL 05/21/17 13:00 (Aspirin) 325 mg DAILY PO 05/22/17 09:00 Sodium Chloride 1,000 ml @ 100 mls/hr Q10H IV 05/21/17 15:45 05/22/17 01:53 (D50w (Vial) Inj) 50 ml UNSCH PRN IV PUSH 05/21/17 18:15 (Glucagon Inj) 1 mg UNSCH PRN OTHER 05/21/17 18:15 (NovoLOG SUPPLEMENTAL SCALE) 1 ACHS SLIDING SCALE SQ 05/21/17 21:00 (Wellbutrin) 150 mg BID PO 05/21/17 21:00 05/21/17 21:30 (Neurontin) 600 mg BID PO 05/21/17 21:00 05/21/17 20:38 (Microzide) 12.5 mg DAILY PO 05/21/17 18:30 05/21/17 18:53 (SEROquel) 25 mg DAILY PO 05/21/17 18:30 05/21/17 18:53 (Vitamin B1) 100 mg DAILY PO 05/21/17 18:30 05/21/17 18:53 (Protonix) 20 mg DAILY PO 05/21/17 20:00 05/21/17 20:38 Vital Signs / I&O Vital Signs Date Time Temp Pulse Resp B/P (MAP) Pulse Ox O2 Delivery O2 Flow Rate FiO2 05/22/17 08:05 97.8 83 18 155/78 (103) 98 05/22/17 04:48 98.1 89 18 140/80 (100) 100 05/22/17 00:25 75 05/21/17 23:59 86 05/21/17 20:56 98.0 80 18 128/61 (83) 98 05/21/17 20:14 104 05/21/17 20:10 75 05/21/17 17:42 179/82 (114) 05/21/17 16:45 98.5 100 20 175/90 (118) 100 05/21/17 10:21 99 Room Air 05/21/17 10:18 81 21 189/100 (129) 99 Physical Exam GENERAL: Alert WN, WD, NAD, male HEAD: NC, AT CV: RRR, without murmur, rub, gallop, no JVD, S1-S2 no S3-S4. RESP: Clear lungs throughout bilateral, no crackles, wheeze, rhonchi, symmetrical chest rise, nonlabored, able to speak in full sentences ABD: Soft, NT, ND, no masses, positive bowel tones MS: Normal tone -4 extremities, no obvious deformities, full range of motion NEURO: CN II through CN XII grossly intact, motor strength 5/5 PSYCH: A+O -3, flat affect, appropriate speech, and mood and affect SKIN: Normal turgor, normal texture Laboratory Laboratory Tests Test 05/21/17 10:20 05/21/17 10:30 05/21/17 13:20 05/21/17 16:30 Urine Opiates Screen NEG Urine Barbiturates Screen NEG Urine Amphetamines Screen NEG Urine Benzodiazepines Screen NEG Urine Cocaine Screen POS Urine Cannabinoids Screen NEG White Blood Count 8.7 TH/MM3 Red Blood Count 5.40 MIL/MM3 Hemoglobin 15.5 GM/DL Hematocrit 46.0 % Mean Corpuscular Volume 85.2 FL Mean Corpuscular Hemoglobin 28.7 PG Mean Corpuscular Hemoglobin Concent 33.7 % Red Cell Distribution Width 13.8 % Platelet Count 350 TH/MM3 Mean Platelet Volume 7.2 FL Neutrophils (%) (Auto) 57.0 % Lymphocytes (%) (Auto) 31.6 % Monocytes (%) (Auto) 8.4 % Eosinophils (%) (Auto) 2.2 % Basophils (%) (Auto) 0.8 % Neutrophils # (Auto) 5.0 TH/MM3 Lymphocytes # (Auto) 2.8 TH/MM3 Monocytes # (Auto) 0.7 TH/MM3 Eosinophils # (Auto) 0.2 TH/MM3 Basophils # (Auto) 0.1 TH/MM3 CBC Comment DIFF FINAL Differential Comment Prothrombin Time 10.7 SEC Prothromb Time International Ratio 1.1 RATIO Activated Partial Thromboplast Time 26.6 SEC Blood Urea Nitrogen 7 MG/DL Creatinine 1.12 MG/DL Random Glucose 90 MG/DL Total Protein 8.8 GM/DL Albumin 3.6 GM/DL Calcium Level 8.9 MG/DL Magnesium Level 2.2 MG/DL Alkaline Phosphatase 117 U/L Aspartate Amino Transf (AST/SGOT) 35 U/L Alanine Aminotransferase (ALT/SGPT) 35 U/L Total Bilirubin 0.3 MG/DL Sodium Level 138 MEQ/L Potassium Level 3.7 MEQ/L Chloride Level 103 MEQ/L Carbon Dioxide Level 28.3 MEQ/L Anion Gap 7 MEQ/L Estimat Glomerular Filtration Rate 81 ML/MIN Total Creatine Kinase 585 U/L 413 U/L 430 U/L Creatine Kinase MB 9.2 NG/ML 6.5 NG/ML 6.1 NG/ML Creatine Kinase MB % 1.6 % 1.6 % 1.4 % Troponin I 0.05 NG/ML 0.06 NG/ML 0.06 NG/ML B-Type Natriuretic Peptide 11 PG/ML Ethyl Alcohol Level 4 MG/DL Imaging Last 24 hours Impressions Chest X-Ray 05/21/17 1019 Signed Impressions: Service Date/Time: May 10:51 - CONCLUSION: No acute cardiopulmonary abnormality is identified. Corey Ayala MD Assessment and Plan Assessment and Plan #1 Chest pain-admitted to chest pain center. Seen and evaluated by Dr. Luna, mildly elevated troponin's related to recent cocaine use. No further cardiac testing required. Discharge this morning, as previously planned , following up with PCP. Patient agreeable to plan of care. #2 History of diabetes-SSI low dose coverage, upon discharge resume home insulin and oral anti-glycemic medications. #3 History of hyperlipidemia-continue atorvastatin #4 History of hypertension-continue HCTZ, consider amlodipine 5mg po upon discharge #5 Tobacco use-strongly encouraged and stressed importance of tobacco cessation. Instructed to quit smoking. #6 Cocaine use-reinforced importance of quitting cocaine use, discussed risk including [place] and possible with cocaine use, Cata Doshi May 22, 2017 08:14
--- NOTE | 2017-05-22 08:18 | HHI.DCPOC ---
Discharge Care Plan Diagnosis: (1) Cocaine abuse, unspecified (2) Tobacco abuse (3) Hypertension (4) Hyperlipidemia (5) Diabetes Goals to Promote Your Health * To prevent worsening of your condition and complications * To maintain your health at the optimal level Directions to Meet Your Goals Take your medications as prescribed Follow your dietary instruction Follow activity as directed Keep your appointments as scheduled Take your immunizations and boosters as scheduled If your symptoms worsen call your PCP, if no PCP go to Urgent Care Center or Emergency Room Smoking is Dangerous to Your Health. Avoid second hand smoke Call the 24-hour hour crisis hotline for domestic abuse at Cata Doshi May 22, 2017 08:18
[2017-05-22] MEDS: SODIUM CHLORIDE 0.9% FLUSH 10 ML FLUSH IV FLUSH SCH (08:51)
[2017-05-22] MEDS: buPROPion HCL 75 MG TAB PO SCH (08:52)
[2017-05-22] MEDS: GABAPENTIN 300 MG CAP PO SCH (08:57)
[2017-05-22] MEDS: QUEtiapine FUMARATE 25 MG TAB PO SCH (08:58)
[2017-05-22] MEDS: HYDROCHLOROTHIAZIDE 12.5 MG CAP PO SCH (08:58)
[2017-05-22] MEDS: THIAMINE HCL 100 MG TAB PO SCH (08:58)
[2017-05-22] MEDS: PANTOPRAZOLE SOD 20 MG DELAYED RELEASE TAB PO SCH (08:58)
[2017-05-22] MEDS ORDERED: ASPIRIN 325 MG TAB PO SCH (09:00)
== END 2017-05-22 10:35 | disposition home or self-care (01) ==
LOC: NEPC 07:48 → NEDA 12:11 → NEPHCDU 16:52
PROVIDERS: ADMIT Internal Medicine Interventional Cardiology; ATTEND Internal Medicine Interventional Cardiology
DX: R07.89 Other chest pain (principal); I25.10 Atherosclerotic heart disease of native coronary artery without angina pectoris; I10 Essential (primary) hypertension; E78.00 Pure hypercholesterolemia, unspecified; E11.9 Type 2 diabetes mellitus without complications; K21.9 Gastro-esophageal reflux disease without esophagitis; R74.8 Abnormal levels of other serum enzymes; G62.9 Polyneuropathy, unspecified; F41.9 Anxiety disorder, unspecified; F32.9 Major depressive disorder, single episode, unspecified; G47.30 Sleep apnea, unspecified; F17.200 Nicotine dependence, unspecified, uncomplicated; F14.10 Cocaine abuse, uncomplicated; Z79.899 Other long term (current) drug therapy; Z79.82 Long term (current) use of aspirin
CPT/HCPCS: 70450; 71046; 80053; 80307; 82550; 82552; 82948; 83735; 83880; 84484; 85025; 85610; 85730; 93005; 96360; 96361; 99285; G0378; J7030

== ENCOUNTER 2017-05-30 02:20 | Emergency (ER) | payer OTHER ==
[~2017-05-30 02:20] MED LIST changes: -ISOS20TA PO
[2017-05-30 02:28] VITALS: BP 163/75; PULSE 83; RESP 18; TEMP 97.6; O2SAT 83; O2SAT 99
--- NOTE | 2017-05-30 03:24 | PD ---
HPI Chief Complaint: Medical Clearance Time Seen by Provider: 03:15 Travel History International Travel<30 days: No Contact w/Intl Traveler<30days: No Traveled to known affect area: No History of Present Illness HPI 61-year-old male complains of myalgia arthralgia. Patient states that he has pain all over the body. Patient states that he is doing cocaine tonight. Patient denies any headache. Patient denies any chest pain or shortness of breath. Patient denies abdominal pain. Patient denies any nausea vomiting diarrhea. Patient denies any fever chills. Patient denies alcohol abuse. Patient denies any injury. PFSH Past Medical History Hx Anticoagulant Therapy: Yes (ASPIRIN) Asthma: No Blood Disorders: No Anxiety: Yes Depression: Yes Heart Rhythm Problems: No Cancer: No Cardiac Catheterization: No Cardiovascular Problems: Yes High Cholesterol: Yes Chest Pain: Yes Congestive Heart Failure: No COPD: No Diabetes: Yes Patient Takes Glucophage: No Diminished Hearing: No Endocrine: Yes Gastrointestinal Disorders: Yes GERD: Yes Genitourinary: No Hepatitis: Yes (C) Hypertension: Yes Immune Disorder: No Implanted Vascular Access Dvce: No Musculoskeletal: No Neurologic: No Psychiatric: Yes Reproductive: No Respiratory: No Immunizations Current: Yes Sleep Apnea: Yes (CPAP) Past Surgical History Abdominal Surgery: No Cardiac Surgery: No Coronary Artery Bypass Graft: No Endocrine Surgery: No Eye Surgery: Yes (RETINA SOCKET REPAIR) Genitourinary Surgery: No Gynecologic Surgery: No Thoracic Surgery: No Other Surgery: Yes (RIGHT HAND, RIGHT EYE) Family History Family Myocardial Infarction: Yes (father) Social History Alcohol Use: Yes (SIX PACK PER DAY) Tobacco Use: Yes (1 PPD) Substance Use: Yes (COCAINE ) Allergies-Medications (Allergen,Severity, Reaction): Coded Allergies: lisinopril (Verified Adverse Reaction, Intermediate, COUGH, 05/07/17) Reported Meds & Prescriptions Reported Meds & Active Scripts Active Walker with Front Wheels (Device) 1 Mis Mis Ea .XX DIRECTED Novolin 70-30 Inj (Insulin Human Isoph/Insulin Regular) 1,000 Unit/10 Ml Vial 40 Units SQ BID Gnp Vitamin B-1 (Thiamine HCl) 100 Mg Tab 100 Mg PO DAILY Omeprazole 20 Mg Tab 20 Mg PO DAILY Aspirin EC (Aspirin) 81 Mg Tabdr 81 Mg PO DAILY Reported Quetiapine (Quetiapine Fumarate) 25 Mg Tab 25 Mg PO DAILY Gabapentin 600 Mg Tab 600 Mg PO BID Bupropion HCl 75 Mg Tab 150 Mg PO BID Hydrochlorothiazide 12.5 Mg Cap 12.5 Mg PO DAILY Ventolin Hfa 18 GM Inh (Albuterol Sulfate) 90 Mcg/Act Aer 2 Puff INH Q6H PRN Methocarbamol 750 Mg Tab 750 Mg PO HS Review of Systems General / Constitutional: No: Fever Eyes: No: Visual changes HENT: No: Headaches Cardiovascular: No: Chest Pain or Discomfort Respiratory: No: Shortness of Breath Gastrointestinal: No: Abdominal Pain Genitourinary: No: Dysuria Musculoskeletal: Positive: Myalgias, Arthralgias, Pain Skin: No Rash Neurologic: No: Weakness Psychiatric: No: Depression Endocrine: No: Polydipsia Hematologic/Lymphatic: No: Easy Bruising Physical Exam Narrative GENERAL: Well-nourished, well-developed patient. SKIN: Focused skin assessment warm/dry. HEAD: Normocephalic. EYES: No scleral icterus. No injection or drainage. Pupils 2 mm equal reactive. NECK: Supple, trachea midline. No JVD or lymphadenopathy. CARDIOVASCULAR: Regular rate and rhythm without murmurs, gallops, or rubs. RESPIRATORY: Breath sounds equal bilaterally. No accessory muscle use. GASTROINTESTINAL: Abdomen soft, non-tender, nondistended. MUSCULOSKELETAL: No cyanosis, or edema. BACK: Nontender without obvious deformity. No CVA tenderness. Neurologic exam normal. Data Data Last Documented VS Vital Signs Date Time Temp Pulse Resp B/P (MAP) Pulse Ox O2 Delivery O2 Flow Rate FiO2 05/30/17 02:28 97.6 83 18 163/75 (104) 83 Orders Orders Ed Discharge Order (05/30/17 03:18) [facility] Medical Decision Making Medical Screen Exam Complete: Yes Emergency Medical Condition: Yes Differential Diagnosis Differential diagnoses including substance-induced mood disorder, muscular strain, rhabdomyolysis. Narrative Course 61-year-old male with myalgia and arthralgia. History of cocaine abuse. Vital signs stable. Physical is benign. Patient is medically cleared to be released to custody of law enforcement. Diagnosis Primary Impression: Substance induced mood disorder Patient Instructions: General Instructions Additional Instructions: Tylenol as needed for pain. Follow up with local physician. Advised [facility]. Med/Other Pt SpecificInfo: No Change to Meds Disposition: [address] LAW ENFORCEMNT Condition: Stable Marbin Carmichael MD May 30, 2017 03:24
== END 2017-05-30 03:36 ==
LOC: NEPC 02:20
DX: F19.94 Other psychoactive substance use, unspecified with psychoactive substance-induced mood disorder (principal); M79.1 Myalgia; M25.50 Pain in unspecified joint; I10 Essential (primary) hypertension; E11.9 Type 2 diabetes mellitus without complications; K21.9 Gastro-esophageal reflux disease without esophagitis; E78.00 Pure hypercholesterolemia, unspecified; F41.8 Other specified anxiety disorders; G47.30 Sleep apnea, unspecified; F17.200 Nicotine dependence, unspecified, uncomplicated; Z79.4 Long term (current) use of insulin; Z79.82 Long term (current) use of aspirin; Z86.79 Personal history of other diseases of the circulatory system; Z87.19 Personal history of other diseases of the digestive system
CPT/HCPCS: 99281

== ENCOUNTER 2017-06-23 15:34 | Emergency (ER) | payer OTHER ==
[~2017-06-23] VITALS: Ht 177.8 cm; Wt 80.0 kg
[2017-06-23 15:38] VITALS: PULSE 92; RESP 14; O2SAT 98
[2017-06-23 15:42] VITALS: BP 186/77; TEMP 98.5
[2017-06-23 15:43] VITALS: O2SAT 100
[2017-06-23] MEDS ORDERED: SODIUM CHLOR 0.9% 1000 ML INJ 1,000 ML IV ONE (15:43)
[2017-06-23 15:45] VITALS: RESP 16; O2SAT 100
[2017-06-23] MEDS ORDERED: SODIUM CHLORIDE 0.9% FLUSH 10 ML FLUSH IVF PRN (15:45)
[2017-06-23] MEDS ORDERED: NALOXONE HCL 0.4 MG/ML AMP IV PUSH ONE (15:45)
[2017-06-23 16:20] LABS: AUTOMATED NEUTROPHIL # 3.5 TH/MM3 (1.8-7.7); BASOPHIL # 0.1 TH/MM3 (0-0.2); EOSINOPHIL # 0.2 TH/MM3 (0-0.4); EOSINOPHIL % 2.5 % (0.0-4.0); HEMOGLOBIN 13.5 GM/DL (13.0-17.0); LYMPH % 40.8 % (9.0-44.0); LYMPHOCYTE # 3.1 TH/MM3 (1.0-4.8); MEAN CELL VOLUME 83.2 FL (80.0-100.0); MEAN CORPUSCULAR HEMOGLOBIN 28.1 PG (27.0-34.0); MEAN CORPUSCULAR HGB CONC 33.8 % (32.0-36.0); MEAN PLATELET VOLUME 7.5 FL (7.0-11.0); MONO % 8.6 % (0.0-8.0); MONOCYTE # 0.6 TH/MM3 (0-0.9); NEUT % 47.1 % (16.0-70.0); PLATELET COUNT 272 TH/MM3 (150-450); RED BLOOD COUNT 4.81 MIL/MM3 (4.50-5.90); RED CELL DISTRIBUTION WIDTH 12.5 % (11.6-17.2); WHITE BLOOD COUNT 7.5 TH/MM3 (4.0-11.0)
[2017-06-23 16:29] LABS: BILIRUBIN, URINE NEG (NEG); BLOOD, URINE NEG (NEG); GLUCOSE,URINE NEG (NEG); KETONE, URINE NEG (NEG); NITRITE,URINE NEG (NEG); PH, URINE 5.5 (5.0-8.5); URINE COLOR LIGHT-YELLOW (YELLW/STRAW); URINE LEUKOCYTE ESTERASE NEG (NEG)
--- NOTE | 2017-06-23 16:36 | PD ---
HPI Chief Complaint: OD/ Ingestion Time Seen by Provider: 15:43 Travel History International Travel<30 days: No Contact w/Intl Traveler<30days: No Traveled to known affect area: No History of Present Illness HPI The patient is a 61-year-old -[place] male who presents to the emergency department via EMS after he was found unresponsive in the bathroom at the [facility]. The patient does have a history of substance abuse, usually alcohol and cocaine related. However, at the [facility] the patient was taken into a room and administered Narcan intranasally which improved the patient's mental status. The patient was then awake and alert. However, the patient denies taken any known opiates, however, he does admit to substance abuse including cocaine and alcohol last night, thinks he may have gotten drugs that were tainted with opiates. He denies any chest pain, shortness breath, nausea, vomiting, or abdominal pain. Symptoms are moderate. PFSH Past Medical History Hx Anticoagulant Therapy: Yes (ASPIRIN) Asthma: No Blood Disorders: No Anxiety: Yes Depression: Yes Heart Rhythm Problems: No Cancer: No Cardiac Catheterization: No Cardiovascular Problems: Yes High Cholesterol: Yes Chest Pain: Yes Congestive Heart Failure: No COPD: No Diabetes: Yes Patient Takes Glucophage: No Diminished Hearing: No Endocrine: Yes Gastrointestinal Disorders: Yes GERD: Yes Genitourinary: No Hepatitis: Yes (C) Hypertension: Yes Immune Disorder: No Implanted Vascular Access Dvce: No Musculoskeletal: No Neurologic: No Psychiatric: Yes Reproductive: No Respiratory: No Immunizations Current: Yes Sleep Apnea: Yes Past Surgical History Abdominal Surgery: No Cardiac Surgery: No Coronary Artery Bypass Graft: No Endocrine Surgery: No Eye Surgery: Yes (RETINA SOCKET REPAIR) Genitourinary Surgery: No Gynecologic Surgery: No Thoracic Surgery: No Other Surgery: Yes (RIGHT HAND, RIGHT EYE) Family History Family Myocardial Infarction: Yes (father) Social History Alcohol Use: Yes (SIX PACK PER DAY) Tobacco Use: Yes (1 PPD) Substance Use: Yes (COCAINE ) Allergies-Medications (Allergen,Severity, Reaction): Coded Allergies: lisinopril (Verified Adverse Reaction, Intermediate, COUGH, 06/23/17) Reported Meds & Prescriptions Reported Meds & Active Scripts Active Walker with Front Wheels (Device) 1 Mis Mis Ea .XX DIRECTED Novolin 70-30 Inj (Insulin Human Isoph/Insulin Regular) 1,000 Unit/10 Ml Vial 40 Units SQ BID Gnp Vitamin B-1 (Thiamine HCl) 100 Mg Tab 100 Mg PO DAILY Omeprazole 20 Mg Tab 20 Mg PO DAILY Aspirin EC (Aspirin) 81 Mg Tabdr 81 Mg PO DAILY Reported Quetiapine (Quetiapine Fumarate) 25 Mg Tab 25 Mg PO DAILY Gabapentin 600 Mg Tab 600 Mg PO BID Bupropion HCl 75 Mg Tab 150 Mg PO BID Hydrochlorothiazide 12.5 Mg Cap 12.5 Mg PO DAILY Ventolin Hfa 18 GM Inh (Albuterol Sulfate) 90 Mcg/Act Aer 2 Puff INH Q6H PRN Methocarbamol 750 Mg Tab 750 Mg PO HS Review of Systems Except as stated in HPI: all other systems reviewed are Neg General / Constitutional: No: Fever HENT: No: Headaches, Lightheadedness Cardiovascular: No: Chest Pain or Discomfort Respiratory: No: Shortness of Breath Gastrointestinal: No: Nausea, Vomiting, Abdominal Pain Neurologic: No: Dizziness Psychiatric: Positive: Substance Abuse, No: Suicidal Ideations, Homicidal Ideation Physical Exam Narrative GENERAL: Awake, alert, pleasant 61-year-old male who appears his stated age and is in no acute respiratory distress. SKIN: Focused skin assessment warm/dry. HEAD: Atraumatic. Normocephalic. EYES: Pupils equal and round. Pinpoint pupils bilaterally. EOMs are intact. ENT: No nasal bleeding or discharge. Mucous membranes pink and moist. NECK: Trachea midline. No JVD. CARDIOVASCULAR: Regular rate and rhythm. No murmur appreciated. RESPIRATORY: No accessory muscle use. Clear to auscultation. Breath sounds equal bilaterally. GASTROINTESTINAL: Abdomen soft, non-tender, nondistended. No rebound tenderness. MUSCULOSKELETAL: No obvious deformities. No clubbing. No cyanosis. No edema. NEUROLOGICAL: Awake and alert. No obvious cranial nerve deficits. Motor grossly within normal limits. Normal speech. Nonfocal. Oriented to person, month, year, president [facility]. Not oriented to place. PSYCHIATRIC: Appropriate mood and affect; insight and judgment normal. Data Data Last Documented VS Vital Signs Date Time Temp Pulse Resp B/P (MAP) Pulse Ox O2 Delivery O2 Flow Rate FiO2 06/23/17 18:49 06/23/17 16:46 92 14 100 Nasal Cannula 2.00 06/23/17 15:42 98.5 Orders Orders Complete Blood Count With Diff (06/23/17 15:43) Comprehensive Metabolic Panel (06/23/17 15:43) Urinalysis - C+S If Indicated (06/23/17 15:43) Iv Access Insert/Monitor (06/23/17 15:43) Ecg Monitoring (06/23/17 15:43) Oximetry (06/23/17 15:43) Naloxone Inj (Narcan Inj) (06/23/17 15:45) Sodium Chloride 0.9% Flush (Ns Flush) (06/23/17 15:45) Sodium Chlor 0.9% 1000 Ml Inj (Ns 1000 M (06/23/17 15:43) Drug Screen, Random Urine (06/23/17 15:43) Alcohol (Ethanol) (06/23/17 15:43) Salicylates (Aspirin) (06/23/17 15:43) Tylenol (Acetaminophen) (06/23/17 15:43) Ed Discharge Order (06/23/17 18:14) Labs Laboratory Tests Test 06/23/17 15:45 06/23/17 15:46 White Blood Count 7.5 TH/MM3 Red Blood Count 4.81 MIL/MM3 Hemoglobin 13.5 GM/DL Hematocrit 40.0 % Mean Corpuscular Volume 83.2 FL Mean Corpuscular Hemoglobin 28.1 PG Mean Corpuscular Hemoglobin Concent 33.8 % Red Cell Distribution Width 12.5 % Platelet Count 272 TH/MM3 Mean Platelet Volume 7.5 FL Neutrophils (%) (Auto) 47.1 % Lymphocytes (%) (Auto) 40.8 % Monocytes (%) (Auto) 8.6 % Eosinophils (%) (Auto) 2.5 % Basophils (%) (Auto) 1.0 % Neutrophils # (Auto) 3.5 TH/MM3 Lymphocytes # (Auto) 3.1 TH/MM3 Monocytes # (Auto) 0.6 TH/MM3 Eosinophils # (Auto) 0.2 TH/MM3 Basophils # (Auto) 0.1 TH/MM3 CBC Comment DIFF FINAL Differential Comment Salicylates Level LESS THAN 1.7 MG/DL Urine Color LIGHT-YELLOW Urine Turbidity CLEAR Urine pH 5.5 Urine Specific [place] 1.015 Urine Protein TRACE mg/dL Urine Glucose (UA) NEG mg/dL Urine Ketones NEG mg/dL Urine Occult Blood NEG Urine Nitrite NEG Urine Bilirubin NEG Urine Urobilinogen 4.0 MG/DL Urine Leukocyte Esterase NEG Urine RBC LESS THAN 1 /hpf Urine WBC LESS THAN 1 /hpf Microscopic Urinalysis Comment CULT NOT INDICATED Blood Urea Nitrogen 7 MG/DL Creatinine 1.03 MG/DL Random Glucose 92 MG/DL Total Protein 7.0 GM/DL Albumin 3.2 GM/DL Calcium Level 8.1 MG/DL Alkaline Phosphatase 101 U/L Aspartate Amino Transf (AST/SGOT) 52 U/L Alanine Aminotransferase (ALT/SGPT) 42 U/L Total Bilirubin 0.5 MG/DL Sodium Level 139 MEQ/L Potassium Level 4.4 MEQ/L Chloride Level 103 MEQ/L Carbon Dioxide Level 26.1 MEQ/L Anion Gap 10 MEQ/L Estimat Glomerular Filtration Rate 89 ML/MIN Urine Opiates Screen NEG Acetaminophen Level LESS THAN 2.0 MCG/ML Urine Barbiturates Screen NEG Urine Amphetamines Screen NEG Urine Benzodiazepines Screen NEG Urine Cocaine Screen POS Urine Cannabinoids Screen NEG Ethyl Alcohol Level 80 MG/DL MDM Medical Decision Making Medical Screen Exam Complete: Yes Emergency Medical Condition: Yes Medical Record Reviewed: Yes Interpretation(s) Laboratory Tests Test 06/23/17 15:45 06/23/17 15:46 White Blood Count 7.5 TH/MM3 Red Blood Count 4.81 MIL/MM3 Hemoglobin 13.5 GM/DL Hematocrit 40.0 % Mean Corpuscular Volume 83.2 FL Mean Corpuscular Hemoglobin 28.1 PG Mean Corpuscular Hemoglobin Concent 33.8 % Red Cell Distribution Width 12.5 % Platelet Count 272 TH/MM3 Mean Platelet Volume 7.5 FL Neutrophils (%) (Auto) 47.1 % Lymphocytes (%) (Auto) 40.8 % Monocytes (%) (Auto) 8.6 % Eosinophils (%) (Auto) 2.5 % Basophils (%) (Auto) 1.0 % Neutrophils # (Auto) 3.5 TH/MM3 Lymphocytes # (Auto) 3.1 TH/MM3 Monocytes # (Auto) 0.6 TH/MM3 Eosinophils # (Auto) 0.2 TH/MM3 Basophils # (Auto) 0.1 TH/MM3 CBC Comment DIFF FINAL Differential Comment Salicylates Level LESS THAN 1.7 MG/DL Urine Color LIGHT-YELLOW Urine Turbidity CLEAR Urine pH 5.5 Urine Specific [place] 1.015 Urine Protein TRACE mg/dL Urine Glucose (UA) NEG mg/dL Urine Ketones NEG mg/dL Urine Occult Blood NEG Urine Nitrite NEG Urine Bilirubin NEG Urine Urobilinogen 4.0 MG/DL Urine Leukocyte Esterase NEG Urine RBC LESS THAN 1 /hpf Urine WBC LESS THAN 1 /hpf Microscopic Urinalysis Comment CULT NOT INDICATED Blood Urea Nitrogen 7 MG/DL Creatinine 1.03 MG/DL Random Glucose 92 MG/DL Total Protein 7.0 GM/DL Albumin 3.2 GM/DL Calcium Level 8.1 MG/DL Alkaline Phosphatase 101 U/L Aspartate Amino Transf (AST/SGOT) 52 U/L Alanine Aminotransferase (ALT/SGPT) 42 U/L Total Bilirubin 0.5 MG/DL Sodium Level 139 MEQ/L Potassium Level 4.4 MEQ/L Chloride Level 103 MEQ/L Carbon Dioxide Level 26.1 MEQ/L Anion Gap 10 MEQ/L Estimat Glomerular Filtration Rate 89 ML/MIN Urine Opiates Screen NEG Acetaminophen Level LESS THAN 2.0 MCG/ML Urine Barbiturates Screen NEG Urine Amphetamines Screen NEG Urine Benzodiazepines Screen NEG Urine Cocaine Screen POS Urine Cannabinoids Screen NEG Ethyl Alcohol Level 80 MG/DL Differential Diagnosis Differential diagnosis includes substance ingestion, substance abuse, opiate ingestion, cocaine ingestion, alcohol ingestion, alcohol abuse, metabolic encephalopathy. Narrative Course IV was established, labs are drawn and sent, and the patient was placed on cardiac telemetry monitoring and continuous pulse oximetry monitoring. The patient was placed on monitoring, was administered Narcan 0.4 mg intravenously. Alcohol level and tox screen were sent to lab. Tox screen is positive for cocaine. Alcohol level is positive at 80. Patient was monitored for 3 hours, was stable. The patient then requested admission after he was told he was discharged for drug rehab. I advised the patient to follow-up in [facility] he is stable for outpatient follow-up. Diagnosis Primary Impression: Cocaine abuse, unspecified Additional Impression: Alcohol abuse with intoxication Additional Instructions: Follow-up in [facility]. Stop abusing alcohol and cocaine. Follow -up at the [facility]. Med/Other Pt SpecificInfo: No Change to Meds Disposition: 01 DISCHARGE HOME Condition: Stable Tej Meredith MD June 23, 2017 16:36
[2017-06-23 16:40] LABS: ALT (GPT) 42 U/L (12-78)
[2017-06-23 16:42] LABS: ALKALINE PHOSPHATASE 101 U/L (45-117); TOTAL BILIRUBIN ADULT 0.5 MG/DL (0.2-1.0)
[2017-06-23 16:43] LABS: ACETAMINOPHEN LESS THAN 2.0 MCG/ML (10.0-30.0); ALBUMIN 3.2 GM/DL (3.4-5.0); AST (GOT) 52 U/L (15-37); BICARBONATE 26.1 MEQ/L (21.0-32.0); BLOOD UREA NITROGEN 7 MG/DL (7-18); CALCIUM 8.1 MG/DL (8.5-10.1); CHLORIDE 103 MEQ/L (98-107); CREATININE 1.03 MG/DL (0.60-1.30); GLOMERULAR FILTRATION RATE 89 ML/MIN (>89); GLUCOSE,RANDOM 92 MG/DL (74-106); SODIUM (NA) 139 MEQ/L (136-145)
[2017-06-23 16:46] VITALS: PULSE 92; RESP 14; O2SAT 100
== END 2017-06-23 18:49 | disposition home or self-care (01) ==
LOC: NEPC 15:34
DX: F14.10 Cocaine abuse, uncomplicated (principal); F10.129 Alcohol abuse with intoxication, unspecified; Y90.4 Blood alcohol level of 80-99 mg/100 ml; I10 Essential (primary) hypertension; E11.9 Type 2 diabetes mellitus without complications; E78.00 Pure hypercholesterolemia, unspecified; F17.210 Nicotine dependence, cigarettes, uncomplicated; F32.9 Major depressive disorder, single episode, unspecified; Z86.19 Personal history of other infectious and parasitic diseases; Z79.4 Long term (current) use of insulin; Z79.899 Other long term (current) drug therapy
CPT/HCPCS: 80053; 80307; 81001; 85025; 96361; 96374; 99284; J2310; J7030

== ENCOUNTER 2017-06-23 21:49 | Emergency (ER) | payer OTHER ==
[~2017-06-23] VITALS: Ht 172.7 cm; Wt 80.0 kg
[2017-06-23 21:53] VITALS: BP 145/65; PULSE 92; RESP 16; TEMP 98.3; O2SAT 99
[2017-06-23] MEDS ORDERED: IBUPROFEN 600 MG TAB PO ONE (22:15)
[2017-06-23] MEDS ORDERED: GABAPENTIN 300 MG CAP PO ONE (22:15)
--- NOTE | 2017-06-23 22:22 | PD ---
HPI Chief Complaint: Psychiatric Symptoms Time Seen by Provider: 22:03 Travel History International Travel<30 days: No Contact w/Intl Traveler<30days: No Traveled to known affect area: No History of Present Illness HPI 61-year-old male requesting psychiatric evaluation. Patient states that he has visual and auditory hallucination. Patient states that he has history of schizophrenia. Patient states that he is on medication for that. Patient states that he has history of neuropathy on the right foot and was on gabapentin. Patient states that he ran out of gabapentin a month ago. Patient states that it was given gabapentin and Naprosyn for neuropathy pain. Patient has history of cocaine abuse. Patient states that he drank beers daily. Patient is a smoker. Patient denies any headache. Patient denies any chest pain shortness of breath. Patient denies abdominal pain. Patient denies any focal weakness or numbness of the extremity. Patient denies any fever chills. Patient has history of anxiety, depression, hyperlipidemia, diabetes, GERD, hepatitis C, hypertension. Patient is a smoker. PFSH Past Medical History Hx Anticoagulant Therapy: Yes (ASPIRIN) Asthma: No Blood Disorders: No Anxiety: Yes Depression: Yes Heart Rhythm Problems: No Cancer: No Cardiac Catheterization: No Cardiovascular Problems: Yes High Cholesterol: Yes Chest Pain: Yes Congestive Heart Failure: No COPD: No Diabetes: Yes Patient Takes Glucophage: No Diminished Hearing: No Endocrine: Yes Gastrointestinal Disorders: Yes GERD: Yes Genitourinary: No Hepatitis: Yes (C) Hypertension: Yes Immune Disorder: No Implanted Vascular Access Dvce: No Musculoskeletal: No Neurologic: No Psychiatric: Yes Reproductive: No Respiratory: No Immunizations Current: Yes Sleep Apnea: Yes Past Surgical History Abdominal Surgery: No Cardiac Surgery: No Coronary Artery Bypass Graft: No Endocrine Surgery: No Eye Surgery: Yes (RETINA SOCKET REPAIR) Genitourinary Surgery: No Gynecologic Surgery: No Thoracic Surgery: No Other Surgery: Yes (RIGHT HAND, RIGHT EYE) Family History Family Myocardial Infarction: Yes (father) Social History Alcohol Use: Yes (8 PACK EVERY OTHER DAY) Tobacco Use: Yes (1 PPD) Substance Use: Yes (COCAINE DAILY ) Allergies-Medications (Allergen,Severity, Reaction): Coded Allergies: lisinopril (Verified Adverse Reaction, Intermediate, COUGH, 06/23/17) Reported Meds & Prescriptions Reported Meds & Active Scripts Active Walker with Front Wheels (Device) 1 Mis Mis Ea .XX DIRECTED Novolin 70-30 Inj (Insulin Human Isoph/Insulin Regular) 1,000 Unit/10 Ml Vial 40 Units SQ BID Gnp Vitamin B-1 (Thiamine HCl) 100 Mg Tab 100 Mg PO DAILY Omeprazole 20 Mg Tab 20 Mg PO DAILY Aspirin EC (Aspirin) 81 Mg Tabdr 81 Mg PO DAILY Reported Quetiapine (Quetiapine Fumarate) 25 Mg Tab 25 Mg PO DAILY Gabapentin 600 Mg Tab 600 Mg PO BID Bupropion HCl 75 Mg Tab 150 Mg PO BID Hydrochlorothiazide 12.5 Mg Cap 12.5 Mg PO DAILY Ventolin Hfa 18 GM Inh (Albuterol Sulfate) 90 Mcg/Act Aer 2 Puff INH Q6H PRN Methocarbamol 750 Mg Tab 750 Mg PO HS Review of Systems General / Constitutional: No: Fever Eyes: No: Visual changes HENT: No: Headaches Cardiovascular: No: Chest Pain or Discomfort Respiratory: No: Shortness of Breath Gastrointestinal: No: Abdominal Pain Genitourinary: No: Dysuria Musculoskeletal: No: Pain Skin: No Rash Neurologic: No: Weakness Psychiatric: No: Depression Endocrine: No: Polydipsia Hematologic/Lymphatic: No: Easy Bruising Physical Exam Narrative GENERAL: Well-nourished, well-developed patient. SKIN: Focused skin assessment warm/dry. HEAD: Normocephalic. EYES: No scleral icterus. No injection or drainage. NECK: Supple, trachea midline. No JVD or lymphadenopathy. CARDIOVASCULAR: Regular rate and rhythm without murmurs, gallops, or rubs. RESPIRATORY: Breath sounds equal bilaterally. No accessory muscle use. GASTROINTESTINAL: Abdomen soft, non-tender, nondistended. MUSCULOSKELETAL: No cyanosis, or edema. BACK: Nontender without obvious deformity. No CVA tenderness. Neurologic exam: Patient is awake alert oriented 3. No obvious focal neurological deficit. Data Data Last Documented VS Vital Signs Date Time Temp Pulse Resp B/P (MAP) Pulse Ox O2 Delivery O2 Flow Rate FiO2 06/23/17 21:53 98.3 92 16 145/65 (91) 99 Orders Orders Complete Blood Count With Diff (06/23/17 22:11) Comprehensive Metabolic Panel (06/23/17 22:11) Thyroid Stimulating Hormone (06/23/17 22:11) Psych Screen (06/23/17 22:11) Drug Screen, Random Urine (06/23/17 22:11) Alcohol (Ethanol) (06/23/17 22:11) Gabapentin (Neurontin) (06/23/17 22:15) Ibuprofen (Motrin) (06/23/17 22:15) Labs Laboratory Tests Test 06/23/17 23:04 White Blood Count 6.7 TH/MM3 Red Blood Count 4.84 MIL/MM3 Hemoglobin 13.7 GM/DL Hematocrit 40.0 % Mean Corpuscular Volume 82.8 FL Mean Corpuscular Hemoglobin 28.3 PG Mean Corpuscular Hemoglobin Concent 34.2 % Red Cell Distribution Width 13.0 % Platelet Count 270 TH/MM3 Mean Platelet Volume 7.3 FL Neutrophils (%) (Auto) 51.7 % Lymphocytes (%) (Auto) 32.8 % Monocytes (%) (Auto) 11.6 % Eosinophils (%) (Auto) 2.9 % Basophils (%) (Auto) 1.0 % Neutrophils # (Auto) 3.4 TH/MM3 Lymphocytes # (Auto) 2.2 TH/MM3 Monocytes # (Auto) 0.8 TH/MM3 Eosinophils # (Auto) 0.2 TH/MM3 Basophils # (Auto) 0.1 TH/MM3 CBC Comment DIFF FINAL Differential Comment Blood Urea Nitrogen 8 MG/DL Creatinine 0.95 MG/DL Random Glucose 121 MG/DL Total Protein 6.4 GM/DL Albumin 3.1 GM/DL Calcium Level 7.7 MG/DL Alkaline Phosphatase 115 U/L Aspartate Amino Transf (AST/SGOT) 41 U/L Alanine Aminotransferase (ALT/SGPT) 39 U/L Total Bilirubin 0.4 MG/DL Sodium Level 143 MEQ/L Potassium Level 3.8 MEQ/L Chloride Level 107 MEQ/L Carbon Dioxide Level 31.5 MEQ/L Anion Gap 5 MEQ/L Estimat Glomerular Filtration Rate 98 ML/MIN Thyroid Stimulating Hormone 3rd Gen 0.638 uIU/ML Ethyl Alcohol Level LESS THAN 3 MG/DL [facility] Medical Decision Making Medical Screen Exam Complete: Yes Emergency Medical Condition: Yes Interpretation(s) 12:17 AM. CBC within normal limits. AST 41. TSH normal. Alcohol less than 3. Differential Diagnosis Differential diagnosis including drug-induced mood disorder, psychosis, schizophrenia Narrative Course 61-year-old male with stated history of schizophrenia with visual and auditory hallucinations. Patient has history of alcohol and drug abuse. 12:18 AM. Patient is medically cleared for psychiatric evaluation. Marbin Carmichael MD June 23, 2017 22:22
[2017-06-23 23:25] LABS: AUTOMATED NEUTROPHIL # 3.4 TH/MM3 (1.8-7.7); BASOPHIL # 0.1 TH/MM3 (0-0.2); EOSINOPHIL # 0.2 TH/MM3 (0-0.4); EOSINOPHIL % 2.9 % (0.0-4.0); HEMOGLOBIN 13.7 GM/DL (13.0-17.0); LYMPH % 32.8 % (9.0-44.0); LYMPHOCYTE # 2.2 TH/MM3 (1.0-4.8); MEAN CELL VOLUME 82.8 FL (80.0-100.0); MEAN CORPUSCULAR HEMOGLOBIN 28.3 PG (27.0-34.0); MEAN CORPUSCULAR HGB CONC 34.2 % (32.0-36.0); MEAN PLATELET VOLUME 7.3 FL (7.0-11.0); MONO % 11.6 % (0.0-8.0); MONOCYTE # 0.8 TH/MM3 (0-0.9); NEUT % 51.7 % (16.0-70.0); PLATELET COUNT 270 TH/MM3 (150-450); RED BLOOD COUNT 4.84 MIL/MM3 (4.50-5.90); WHITE BLOOD COUNT 6.7 TH/MM3 (4.0-11.0)
[2017-06-23 23:55] LABS: ALBUMIN 3.1 GM/DL (3.4-5.0); ALT (GPT) 39 U/L (12-78); AST (GOT) 41 U/L (15-37); BICARBONATE 31.5 MEQ/L (21.0-32.0); BLOOD UREA NITROGEN 8 MG/DL (7-18); CALCIUM 7.7 MG/DL (8.5-10.1); CHLORIDE 107 MEQ/L (98-107); CREATININE 0.95 MG/DL (0.60-1.30); GLOMERULAR FILTRATION RATE 98 ML/MIN (>89); GLUCOSE,RANDOM 121 MG/DL (74-106); SODIUM (NA) 143 MEQ/L (136-145)
[2017-06-24 00:05] LABS: ALKALINE PHOSPHATASE 115 U/L (45-117); TOTAL BILIRUBIN ADULT 0.4 MG/DL (0.2-1.0); TOTAL PROTEIN 6.4 GM/DL (6.4-8.2)
[2017-06-24 06:36] VITALS: BP 135/68; PULSE 73; RESP 19; O2SAT 98
[2017-06-24] MEDS ORDERED: GABAPENTIN 300 MG CAP PO SCH (10:00)
[2017-06-24] MEDS ORDERED: HYDROCHLOROTHIAZIDE 12.5 MG CAP PO ONE (10:00)
[2017-06-24] MEDS ORDERED: PANTOPRAZOLE SOD 20 MG DELAYED RELEASE TAB PO ONE (10:00)
[2017-06-24] MEDS ORDERED: INSULIN HUMAN NPH/R 70/30 1,000 UNITS/10 ML VIAL SQ ONE (10:15)
--- NOTE | 2017-06-24 10:37 | PD ---
History of Present Illness Chief Complaint: Psychiatric Symptoms Time Seen by Provider: 10:00 Travel History International Travel<30 Days: No Contact w/Intl Traveler<30days: No Known affected area: No Legal Status Legal Status: Voluntary History of Present Illness: This is a 61-year-old -Burkin[place] male who presents voluntarily to this facility for reportedly experiencing auditory and visual hallucinations. Patient reports a diagnosis of schizophrenia. He is well-known to this facility with multiple visits for polysubstance abuse. Reviewed electronic medical records, labs, discussed patient with staff. Toxicology screen positive for cocaine. Patient was found resting quietly on his bed in his room and J pod. He awoke to verbal stimuli. He is alert and oriented 4. His speech is clear, logical, and organized. He appears in no apparent distress. There is no indication of internal stimulation or thought blocking. His mood is good his affect is euthymic. He states that he "overindulged and I started hallucinating I saw somebody walking up behind me and I would hear the footsteps". When asked how he feels this morning he reports that he feels "fine". He now denies having auditory or visual hallucinations at this time. He denies suicidal ideation and homicidal ideation as well. [facility] that he [facility] to get his medications and "I passed out they have any brought to the hospital". PFSH Past Medical History Hx Anticoagulant Therapy: Yes (ASPIRIN) Asthma: No Blood Disorders: No Anxiety: Yes Depression: Yes Heart Rhythm Problems: No Cancer: No Cardiac Catheterization: No Cardiovascular Problems: Yes High Cholesterol: Yes Chest Pain: Yes Congestive Heart Failure: No COPD: No Diabetes: Yes Patient Takes Glucophage: No Diminished Hearing: No Endocrine: Yes Gastrointestinal Disorders: Yes GERD: Yes Genitourinary: No Hepatitis: Yes (C) Hypertension: Yes Immune Disorder: No Implanted Vascular Access Dvce: No Musculoskeletal: No Neurologic: No Psychiatric: Yes Reproductive: No Respiratory: No Immunizations Current: Yes Sleep Apnea: Yes Past Surgical History Abdominal Surgery: No Cardiac Surgery: No Coronary Artery Bypass Graft: No Endocrine Surgery: No Eye Surgery: Yes (RETINA SOCKET REPAIR) Genitourinary Surgery: No Gynecologic Surgery: No Thoracic Surgery: No Other Surgery: Yes (RIGHT HAND, RIGHT EYE) Psychiatric History Psychiatric History Frequent visits to this facility for "suicidal ideation" related to polysubstance abuse. Hx Psychiatric Treatment: frequent visits for suicidal thoughts. History of Inpatient Treatment: No Social History Patient reports that he smokes tobacco, drinks alcohol daily, and uses cocaine. Hx Alcohol Use: Yes (8 PACK EVERY OTHER DAY) Hx Tobacco Use: Yes (1 PPD) Hx Substance Use: Yes (COCAINE DAILY ) Substance Use Type: Alcohol, Crack, Nicotine/Cigarettes, Cocaine Hx of Substance Use Treatment: Yes Allergies-Medications (Allergen,Severity, Reaction): Coded Allergies: lisinopril (Verified Adverse Reaction, Intermediate, COUGH, 06/23/17) Reported Meds & Prescriptions Reported Meds & Active Scripts Active Walker with Front Wheels (Device) 1 Mis Mis Ea .XX DIRECTED Novolin 70-30 Inj (Insulin Human Isoph/Insulin Regular) 1,000 Unit/10 Ml Vial 40 Units SQ BID Gnp Vitamin B-1 (Thiamine HCl) 100 Mg Tab 100 Mg PO DAILY Omeprazole 20 Mg Tab 20 Mg PO DAILY Aspirin EC (Aspirin) 81 Mg Tabdr 81 Mg PO DAILY Reported Quetiapine (Quetiapine Fumarate) 25 Mg Tab 25 Mg PO DAILY Gabapentin 600 Mg Tab 600 Mg PO BID Bupropion HCl 75 Mg Tab 150 Mg PO BID Hydrochlorothiazide 12.5 Mg Cap 12.5 Mg PO DAILY Ventolin Hfa 18 GM Inh (Albuterol Sulfate) 90 Mcg/Act Aer 2 Puff INH Q6H PRN Methocarbamol 750 Mg Tab 750 Mg PO HS Mental Status Examination Appearance: Disheveled Consciousness: Alert Orientation: x4 Motor Activity: Other (Lying on bed) Speech: Unremarkable Language: Adequate Fund of Knowledge: Adequate Attention and Concentration: Adequate Memory: Unremarkable Mood: Appropriate, Good Affect: Appropriate, Euthymic Thought Process & Associations: Intact, Logical Thought Content: Appropriate Hallucination Type: None Delusion Type: None Suicidal Ideation: No Suicidal Plan: No Suicidal Intention: No Homicidal Ideation: No Homicidal Plan: No Homicidal Intention: No Insight: Fair Judgment: Impulsive MDM Medical Decision Making Medical Record Reviewed: Yes Assessment/Plan This is a 61-year-old -[place] male who presents voluntarily to this facility reporting auditory and visual hallucinations related to "over indulging and cocaine". Upon examination this morning patient is awake, alert, and oriented 4. There is no indication of internal stimulation or thought blocking. Speech is clear, logical, and organized. His mood is good his affect is euthymic. There is no indication of distressed as witnessed by his resting peacefully in bed. He falls asleep shortly after he has left alone. Patient does not meet admission criteria. He has a long history of polysubstance abuse and is followed up outpatient by the [facility]. He appears to be malingering. He will be discharged with instructions to follow-up with his established outpatient provider and told that he may return to this facility if his condition should worsen. Orders Orders Complete Blood Count With Diff (06/23/17 22:11) Comprehensive Metabolic Panel (06/23/17 22:11) Thyroid Stimulating Hormone (06/23/17 22:11) Psych Screen (06/23/17 22:11) Drug Screen, Random Urine (06/23/17 22:11) Alcohol (Ethanol) (06/23/17 22:11) Gabapentin (Neurontin) (06/23/17 22:15) Ibuprofen (Motrin) (06/23/17 22:15) Diet Regular Basic (06/24/17 Breakfast) Gabapentin (Neurontin) (06/24/17 10:00) Hydrochlorothiazide (Microzide) (06/24/17 10:00) Pantoprazole (Protonix) (06/24/17 10:00) Insulin Human Nph/R 70/30 Inj (Novolin 7 (06/24/17 10:15) Results Vital Signs Date Time Temp Pulse Resp B/P (MAP) Pulse Ox O2 Delivery O2 Flow Rate FiO2 06/24/17 06:36 73 19 135/68 (90) 98 Room Air 06/23/17 21:53 98.3 92 16 145/65 (91) 99 Laboratory Tests Test 06/23/17 23:04 06/24/17 09:17 White Blood Count 6.7 Red Blood Count 4.84 Hemoglobin 13.7 Hematocrit 40.0 Mean Corpuscular Volume 82.8 Mean Corpuscular Hemoglobin 28.3 Mean Corpuscular Hemoglobin Concent 34.2 Red Cell Distribution Width 13.0 Platelet Count 270 Mean Platelet Volume 7.3 Neutrophils (%) (Auto) 51.7 Lymphocytes (%) (Auto) 32.8 Monocytes (%) (Auto) 11.6 Eosinophils (%) (Auto) 2.9 Basophils (%) (Auto) 1.0 Neutrophils # (Auto) 3.4 Lymphocytes # (Auto) 2.2 Monocytes # (Auto) 0.8 Eosinophils # (Auto) 0.2 Basophils # (Auto) 0.1 CBC Comment DIFF FINAL Differential Comment Blood Urea Nitrogen 8 Creatinine 0.95 Random Glucose 121 Total Protein 6.4 Albumin 3.1 Calcium Level 7.7 Alkaline Phosphatase 115 Aspartate Amino Transf (AST/SGOT) 41 Alanine Aminotransferase (ALT/SGPT) 39 Total Bilirubin 0.4 Sodium Level 143 Potassium Level 3.8 Chloride Level 107 Carbon Dioxide Level 31.5 Anion Gap 5 Estimat Glomerular Filtration Rate 98 Thyroid Stimulating Hormone 3rd Gen 0.638 Ethyl Alcohol Level LESS THAN 3 Urine Opiates Screen NEG Urine Barbiturates Screen NEG Urine Amphetamines Screen NEG Urine Benzodiazepines Screen NEG Urine Cocaine Screen POS Urine Cannabinoids Screen NEG Diagnosis Primary Impression: Substance-induced psychotic disorder with hallucinations Psychiatrically Cleared: Yes Berta Pizano June 24, 2017 10:37
--- NOTE | 2017-06-24 10:38 | PD ---
Physical Exam Date Seen by Provider: June 24, 2017 Time Seen by Provider: 10:38 Data Data Last Documented VS Vital Signs Date Time Temp Pulse Resp B/P (MAP) Pulse Ox O2 Delivery O2 Flow Rate FiO2 06/24/17 06:36 73 19 135/68 (90) 98 Room Air 06/23/17 21:53 98.3 Orders Orders Complete Blood Count With Diff (06/23/17 22:11) Comprehensive Metabolic Panel (06/23/17 22:11) Thyroid Stimulating Hormone (06/23/17 22:11) Psych Screen (06/23/17 22:11) Drug Screen, Random Urine (06/23/17 22:11) Alcohol (Ethanol) (06/23/17 22:11) Gabapentin (Neurontin) (06/23/17 22:15) Ibuprofen (Motrin) (06/23/17 22:15) Diet Regular Basic (06/24/17 Breakfast) Gabapentin (Neurontin) (06/24/17 10:00) Hydrochlorothiazide (Microzide) (06/24/17 10:00) Pantoprazole (Protonix) (06/24/17 10:00) Insulin Human Nph/R 70/30 Inj (Novolin 7 (06/24/17 10:15) Labs Laboratory Tests Test 06/23/17 23:04 06/24/17 09:17 White Blood Count 6.7 TH/MM3 Red Blood Count 4.84 MIL/MM3 Hemoglobin 13.7 GM/DL Hematocrit 40.0 % Mean Corpuscular Volume 82.8 FL Mean Corpuscular Hemoglobin 28.3 PG Mean Corpuscular Hemoglobin Concent 34.2 % Red Cell Distribution Width 13.0 % Platelet Count 270 TH/MM3 Mean Platelet Volume 7.3 FL Neutrophils (%) (Auto) 51.7 % Lymphocytes (%) (Auto) 32.8 % Monocytes (%) (Auto) 11.6 % Eosinophils (%) (Auto) 2.9 % Basophils (%) (Auto) 1.0 % Neutrophils # (Auto) 3.4 TH/MM3 Lymphocytes # (Auto) 2.2 TH/MM3 Monocytes # (Auto) 0.8 TH/MM3 Eosinophils # (Auto) 0.2 TH/MM3 Basophils # (Auto) 0.1 TH/MM3 CBC Comment DIFF FINAL Differential Comment Blood Urea Nitrogen 8 MG/DL Creatinine 0.95 MG/DL Random Glucose 121 MG/DL Total Protein 6.4 GM/DL Albumin 3.1 GM/DL Calcium Level 7.7 MG/DL Alkaline Phosphatase 115 U/L Aspartate Amino Transf (AST/SGOT) 41 U/L Alanine Aminotransferase (ALT/SGPT) 39 U/L Total Bilirubin 0.4 MG/DL Sodium Level 143 MEQ/L Potassium Level 3.8 MEQ/L Chloride Level 107 MEQ/L Carbon Dioxide Level 31.5 MEQ/L Anion Gap 5 MEQ/L Estimat Glomerular Filtration Rate 98 ML/MIN Thyroid Stimulating Hormone 3rd Gen 0.638 uIU/ML Ethyl Alcohol Level LESS THAN 3 MG/DL Urine Opiates Screen NEG Urine Barbiturates Screen NEG Urine Amphetamines Screen NEG Urine Benzodiazepines Screen NEG Urine Cocaine Screen POS Urine Cannabinoids Screen NEG MDM Supervised Visit with [facility]: No Narrative Course 61-year-old male presents to the ED requesting voluntary psychiatric evaluation. He was initially seen by Dr. Carmichael and medically cleared. He was then seen by Yanni Pizano, mixer blender, and deemed safe for discharge. Patient has a history of polysubstance abuse. He is discharged with instructions to follow-up with [facility] for outpatient treatment. He is stable and discharged home. Diagnosis Primary Impression: Polysubstance dependence [facility] Additional Instruction: Follow-up with [facility] for outpatient evaluation and treatment. Return to the ED for any urgent or emergent medical condition. Disposition: 01 DISCHARGE HOME Condition: Stable Briseida Mitchell June 24, 2017 10:38
== END 2017-06-24 11:14 | disposition home or self-care (01) ==
LOC: NEPD 21:49 → NEPJ 06-24 11:14
DX: F19.251 Other psychoactive substance dependence with psychoactive substance-induced psychotic disorder with hallucinations (principal); F14.251 Cocaine dependence with cocaine-induced psychotic disorder with hallucinations; I10 Essential (primary) hypertension; E78.00 Pure hypercholesterolemia, unspecified; E11.9 Type 2 diabetes mellitus without complications; F20.9 Schizophrenia, unspecified; F17.210 Nicotine dependence, cigarettes, uncomplicated; Z86.19 Personal history of other infectious and parasitic diseases; Z79.4 Long term (current) use of insulin; Z79.899 Other long term (current) drug therapy
CPT/HCPCS: 80053; 80307; 84443; 85025; 96372; 99283; J1815

== ENCOUNTER 2017-06-30 02:02 | Emergency (ER) | payer OTHER ==
[~2017-06-30] VITALS: Ht 172.7 cm; Wt 72.7 kg
[2017-06-30 02:10] VITALS: BP 170/73; PULSE 87; RESP 18; TEMP 98.5; O2SAT 96
--- NOTE | 2017-06-30 03:18 | PD ---
HPI Chief Complaint: Medical Clearance Time Seen by Provider: :22 Travel History International Travel<30 days: No Contact w/Intl Traveler<30days: No Traveled to known affect area: No History of Present Illness HPI 61-year-old black male presents emergency department by EMS for evaluation of foot pain. Patient here appears to be under the influence of alcohol and/or drugs. He does not want to render any meaningful history. He lays down in the bed, rolls on his side and closes his eyes. He will not engage this examiner. Meaningful history is not obtainable. PFSH Past Medical History Narrative Medical Medical record reviewed Hx Anticoagulant Therapy: Yes (ASPIRIN) Asthma: No Blood Disorders: No Anxiety: Yes Depression: Yes Heart Rhythm Problems: No Cancer: No Cardiac Catheterization: No Cardiovascular Problems: Yes High Cholesterol: Yes Chest Pain: Yes Congestive Heart Failure: No COPD: No Diabetes: Yes Patient Takes Glucophage: No Diminished Hearing: No Endocrine: Yes Gastrointestinal Disorders: Yes GERD: Yes Genitourinary: No Hepatitis: Yes (C) Hypertension: Yes Immune Disorder: No Implanted Vascular Access Dvce: No Musculoskeletal: No Neurologic: No Psychiatric: Yes Reproductive: No Respiratory: No Immunizations Current: Yes Sleep Apnea: Yes Past Surgical History Abdominal Surgery: No Cardiac Surgery: No Coronary Artery Bypass Graft: No Endocrine Surgery: No Eye Surgery: Yes (RETINA SOCKET REPAIR) Genitourinary Surgery: No Gynecologic Surgery: No Thoracic Surgery: No Other Surgery: Yes (RIGHT HAND, RIGHT EYE) Family History Family Myocardial Infarction: Yes (father) Social History Alcohol Use: Yes (8 PACK EVERY OTHER DAY) Tobacco Use: Yes (1 PPD) Substance Use: Yes (COCAINE DAILY ) Allergies-Medications (Allergen,Severity, Reaction): Coded Allergies: lisinopril (Verified Adverse Reaction, Intermediate, COUGH, 06/30/17) Reported Meds & Prescriptions Reported Meds & Active Scripts Active Walker with Front Wheels (Device) 1 Mis Mis Ea .XX DIRECTED Novolin 70-30 Inj (Insulin Human Isoph/Insulin Regular) 1,000 Unit/10 Ml Vial 40 Units SQ BID Gnp Vitamin B-1 (Thiamine HCl) 100 Mg Tab 100 Mg PO DAILY Omeprazole 20 Mg Tab 20 Mg PO DAILY Aspirin EC (Aspirin) 81 Mg Tabdr 81 Mg PO DAILY Reported Quetiapine (Quetiapine Fumarate) 25 Mg Tab 25 Mg PO DAILY Gabapentin 600 Mg Tab 600 Mg PO BID Bupropion HCl 75 Mg Tab 150 Mg PO BID Hydrochlorothiazide 12.5 Mg Cap 12.5 Mg PO DAILY Ventolin Hfa 18 GM Inh (Albuterol Sulfate) 90 Mcg/Act Aer 2 Puff INH Q6H PRN Methocarbamol 750 Mg Tab 750 Mg PO HS Review of Systems ROS Limitations: Intoxication, Uncooperative Physical Exam Narrative GENERAL: This is a well-nourished, well-developed patient, in no apparent distress. Appears under the influence of alcohol and/or drugs. SKIN: No rashes, ecchymoses or lesions. Warm and dry. HEAD: Atraumatic. Normocephalic. EYES: PERRL, EOMI, no discharge or injection. No scleral icterus. EARS: Clear NOSE: Nasal turbinates appear normal. THROAT: Mucosa pink and moist. Airway patent. NECK: Trachea midline. supple, moves head freely. LUNGS: Clear to auscultation. CV: Regular in rhythm. ABDOMEN: Soft nontender. EXT: No clubbing cyanosis or edema. Data Data Last Documented VS Vital Signs Date Time Temp Pulse Resp B/P (MAP) Pulse Ox O2 Delivery O2 Flow Rate FiO2 06/30/17 02:10 98.5 87 18 170/73 (105) 96 MDM Medical Decision Making Medical Screen Exam Complete: Yes Emergency Medical Condition: Yes Medical Record Reviewed: Yes Differential Diagnosis Differential diagnoses: Alcohol intoxication, substance abuse, electrolyte abnormality, malingering Narrative Course The patient appears to be under the influence of alcohol and/or drugs. Once the patient becomes more alert, he will be discharged. I see no evidence of trauma. I do not believe he is suffering from any acute medical process. Diagnosis Primary Impression: Polysubstance dependence Patient Instructions: General Instructions Additional Instructions: Rest. Increase fluids. Avoid alcohol. Avoid illegal substances. Follow-up with [facility] for detox. Do not operate a car or any heavy machinery under the influence of alcohol or drugs. Follow-up with a medical doctor this week. Return to the ER for emergencies Med/Other Pt SpecificInfo: No Meds Exist/No RX given Disposition: 01 DISCHARGE HOME Condition: Stable Angel Demarco June 30, 2017 03:17
== END 2017-06-30 06:05 | disposition home or self-care (01) ==
LOC: NEPD 02:02
DX: F19.20 Other psychoactive substance dependence, uncomplicated (principal); F17.200 Nicotine dependence, unspecified, uncomplicated; E11.9 Type 2 diabetes mellitus without complications; Z79.4 Long term (current) use of insulin
CPT/HCPCS: 99282

== ENCOUNTER 2017-07-11 21:33 | Inpatient (IN) | payer OTHER ==
[~2017-07-11] VITALS: Ht 170.2 cm; Wt 76.3 kg
[2017-07-11 22:12] VITALS: BP 143/66; PULSE 82; RESP 20; TEMP 98.6; O2SAT 100
--- NOTE | 2017-07-11 22:40 | PD ---
HPI Chief Complaint: Psychiatric Symptoms Time Seen by Provider: 22:16 Travel History International Travel<30 days: No Contact w/Intl Traveler<30days: No Traveled to known affect area: No History of Present Illness HPI 61-year-old male presents to the emergency department under [place] act. He arrived [employer] [place] [employer]. According to the law enforcement report "while at [facility] this patient was discharged after receiving medical detox from alcohol. After being discharged, he refused to leave the facility advising that he was still having suicidal and homicidal thoughts. Medical staff called police. They informed me that he was seen by Dr. barrios and made no mention to him that he was suicidal. They would not admit him again or evaluate him because they are not a receiving facility." On my examination of the patient he reports having suicidal thoughts and his plan is to walk in front of a bus. He reports attempted suicide by walking into moving traffic. Denies homicidal ideations. Reports visual hallucinations. Says he "sees people." Says his thoughts of suicide were aggravated because his son got into trouble. No known relieving factors. Onset unknown. Duration unknown. Symptoms are moderate to severe in severity. Reports illicit drug use and last used cocaine 2 days ago. Reports alcohol use and tobacco use. [facility]. Allergies to lisinopril. History of hypertension and IDDM. Has no other medical complaints. No other modifying factors or associated signs and symptoms. PFSH Past Medical History Hx Anticoagulant Therapy: Yes (ASPIRIN) Asthma: No Blood Disorders: No Anxiety: Yes Depression: Yes Heart Rhythm Problems: No Cancer: No Cardiac Catheterization: No Cardiovascular Problems: Yes High Cholesterol: Yes Chest Pain: Yes Congestive Heart Failure: No COPD: No Diabetes: Yes Patient Takes Glucophage: No Diminished Hearing: No Endocrine: Yes Gastrointestinal Disorders: Yes GERD: Yes Genitourinary: No Hepatitis: Yes (C) Hypertension: Yes Immune Disorder: No Implanted Vascular Access Dvce: No Musculoskeletal: No Neurologic: No Psychiatric: Yes Reproductive: No Respiratory: No Immunizations Current: Yes Sleep Apnea: Yes Past Surgical History Abdominal Surgery: No Cardiac Surgery: No Coronary Artery Bypass Graft: No Endocrine Surgery: No Eye Surgery: Yes (RETINA SOCKET REPAIR) Genitourinary Surgery: No Gynecologic Surgery: No Thoracic Surgery: No Other Surgery: Yes (RIGHT HAND, RIGHT EYE) Family History Family Myocardial Infarction: Yes (father) Social History Alcohol Use: Yes (8 PACK EVERY OTHER DAY) Tobacco Use: Yes (1 PPD) Substance Use: Yes (COCAINE DAILY ) Allergies-Medications (Allergen,Severity, Reaction): Coded Allergies: lisinopril (Verified Adverse Reaction, Intermediate, COUGH, 07/11/17) Reported Meds & Prescriptions Reported Meds & Active Scripts Active Walker with Front Wheels (Device) 1 Mis Mis Ea .XX DIRECTED Novolin 70-30 Inj (Insulin Human Isoph/Insulin Regular) 1,000 Unit/10 Ml Vial 40 Units SQ BID Gnp Vitamin B-1 (Thiamine HCl) 100 Mg Tab 100 Mg PO DAILY Omeprazole 20 Mg Tab 20 Mg PO DAILY Aspirin EC (Aspirin) 81 Mg Tabdr 81 Mg PO DAILY Reported Quetiapine (Quetiapine Fumarate) 25 Mg Tab 25 Mg PO DAILY Gabapentin 600 Mg Tab 600 Mg PO BID Bupropion HCl 75 Mg Tab 150 Mg PO BID Hydrochlorothiazide 12.5 Mg Cap 12.5 Mg PO DAILY Ventolin Hfa 18 GM Inh (Albuterol Sulfate) 90 Mcg/Act Aer 2 Puff INH Q6H PRN Methocarbamol 750 Mg Tab 750 Mg PO HS Review of Systems Except as stated in HPI: all other systems reviewed are Neg Physical Exam Narrative GENERAL: Well-nourished, well-developed black male patient, in no acute distress SKIN: Warm and dry. HEAD: Atraumatic. Normocephalic. EYES: Pupils equal and round. ENT: Mucosa pink and moist. NECK: Supple. Trachea midline. CARDIOVASCULAR: Regular rate and rhythm. No murmur appreciated. RESPIRATORY: No accessory muscle use. Clear to auscultation. Breath sounds equal bilaterally. GASTROINTESTINAL: Abdomen soft, non-tender, nondistended. Hepatic and splenic margins not palpable. Bowel sounds are active 4 quadrants. MUSCULOSKELETAL: No obvious deformities. No clubbing. No cyanosis. No edema. NEUROLOGICAL: Awake and alert. Oriented 3. No obvious cranial nerve deficits. Motor grossly within normal limits. Normal speech. Moves all extremities. 5/5 strength to all extremities. PSYCHIATRIC: No delusional thought processes. No hallucinations. Data Data Last Documented VS Vital Signs Date Time Temp Pulse Resp B/P (MAP) Pulse Ox O2 Delivery O2 Flow Rate FiO2 07/11/17 22:12 98.6 82 20 143/66 (91) 100 Orders Orders Complete Blood Count With Diff (07/11/17 22:20) Comprehensive Metabolic Panel (07/11/17 22:20) Thyroid Stimulating Hormone (07/11/17 22:20) Psych Screen (07/11/17 22:20) Drug Screen, Random Urine (07/11/17 22:20) Alcohol (Ethanol) (07/11/17 22:20) Salicylates (Aspirin) (07/11/17 22:20) Tylenol (Acetaminophen) (07/11/17 22:20) MDM Medical Decision Making Medical Screen Exam Complete: Yes Emergency Medical Condition: Yes Medical Record Reviewed: Yes Differential Diagnosis Suicidal ideation, substance-induced mood disorder, medical clearance for psychiatric admission, cocaine abuse Narrative Course Patient presents under a [place] act. Physical examination and vital signs are essentially unremarkable. Patient has no medical complaints to report. Psych screen has been ordered. If the laboratory results are unremarkable, the patient will be medically cleared for psychiatric evaluation and disposition. Diagnosis Primary Impression: Medical clearance for psychiatric admission Condition: Stable Sarah Gallegos Jul 11, 2017 22:40
[2017-07-11] MEDS ORDERED: ACETAMINOPHEN 325 MG TAB PO ONE (22:45)
[2017-07-11 23:11] LABS: AUTOMATED NEUTROPHIL # 4.3 TH/MM3 (1.8-7.7); BASOPHIL # 0.1 TH/MM3 (0-0.2); BASOPHIL % 1.2 % (0.0-2.0); EOSINOPHIL # 0.1 TH/MM3 (0-0.4); EOSINOPHIL % 1.8 % (0.0-4.0); HEMATOCRIT 42.5 % (39.0-51.0); HEMOGLOBIN 14.2 GM/DL (13.0-17.0); LYMPH % 37.8 % (9.0-44.0); LYMPHOCYTE # 3.2 TH/MM3 (1.0-4.8); MEAN CELL VOLUME 85.3 FL (80.0-100.0); MEAN CORPUSCULAR HEMOGLOBIN 28.5 PG (27.0-34.0); MEAN CORPUSCULAR HGB CONC 33.4 % (32.0-36.0); MEAN PLATELET VOLUME 7.4 FL (7.0-11.0); MONO % 8.4 % (0.0-8.0); MONOCYTE # 0.7 TH/MM3 (0-0.9); NEUT % 50.8 % (16.0-70.0); PLATELET COUNT 277 TH/MM3 (150-450); RED BLOOD COUNT 4.98 MIL/MM3 (4.50-5.90); RED CELL DISTRIBUTION WIDTH 14.3 % (11.6-17.2); WHITE BLOOD COUNT 8.5 TH/MM3 (4.0-11.0)
[2017-07-11 23:40] LABS: ALT (GPT) 36 U/L (12-78)
[2017-07-11 23:50] LABS: ALKALINE PHOSPHATASE 111 U/L (45-117); TOTAL BILIRUBIN ADULT 0.2 MG/DL (0.2-1.0); TOTAL PROTEIN 6.9 GM/DL (6.4-8.2)
[2017-07-11 23:55] LABS: ALBUMIN 3.2 GM/DL (3.4-5.0); AST (GOT) 26 U/L (15-37); BICARBONATE 23.8 MEQ/L (21.0-32.0); BLOOD UREA NITROGEN 12 MG/DL (7-18); CALCIUM 8.8 MG/DL (8.5-10.1); CHLORIDE 101 MEQ/L (98-107); CREATININE 1.16 MG/DL (0.60-1.30); GLOMERULAR FILTRATION RATE 78 ML/MIN (>89); GLUCOSE,RANDOM 158 MG/DL (74-106); SODIUM (NA) 137 MEQ/L (136-145)
[2017-07-11 23:56] LABS: ACETAMINOPHEN LESS THAN 2.0 MCG/ML (10.0-30.0)
[2017-07-12 05:52] VITALS: BP 126/65; PULSE 85; RESP 20; O2SAT 99
--- NOTE | 2017-07-12 14:15 | PD ---
History of Present Illness Chief Complaint: Psychiatric Symptoms Time Seen by Provider: 13:31 Travel History International Travel<30 Days: No Contact w/Intl Traveler<30days: No Known affected area: No History of Present Illness: Patient is 7-year-old -[place] male placed under [place] act by [facility] [employer]. [place] act states while at [address],this patient was discharged after receiving medical detox from alcohol. After being discharged. He refused to leave the facility advised that he was still having suicidal /homicidal thoughts. Medical staff call please they inform me that he was seen by Dr. Linder and made no mention of him to him that he was suicidal. They would not admit him again for evaluation because they were not a receiving facility." Patient was transferred from [facility] to [facility] [place] a psychological evaluations. Patient states , " I served three years in the [employer] and was honorably discharged due to a mental breakdown, then he was diagnosed with Schizophrenia." He was on Risperdal , Cogentin and Trazodone , but has not been medication compliant. He states he has auditory hallucinations that are telling to hurt others accompanied by visual hallucinations described as flashes. Medical history of IDDM ( Novolin 70.30 , 45 units/bid), HTN and chronic pain. He is with three children ( Corey, Burak and Carson). He lived most of his life in [place] and has been in [place]. He completed two years of college in [employer] . He states that he had several suicidal ideations ( walking into traffic). Most of his family lives in [place]. Chart reviewed and discussed with nurse. Patient is in a hospital gown in [facility]. He is alert and oriented x 4. He looks unkept. Fund of knowledge is good. Attention and concentration is poor. He is easily distracted. He has both auditory and visual hallucinations. I was unable to assess his memory as he is pre-occupied with the voices that he is hearing. Insight and judgement is good. Patient is at moderate risk of for decompensation, will admit for further evaluation and assessment. Dx: Schizophrenia PFSH Past Medical History Hx Anticoagulant Therapy: Yes (ASPIRIN) Asthma: No Blood Disorders: No Anxiety: Yes Depression: Yes Heart Rhythm Problems: No Cancer: No Cardiac Catheterization: No Cardiovascular Problems: Yes High Cholesterol: Yes Chest Pain: Yes Congestive Heart Failure: No COPD: No Diabetes: Yes Patient Takes Glucophage: No Diminished Hearing: No Endocrine: Yes Gastrointestinal Disorders: Yes GERD: Yes Genitourinary: No Hepatitis: Yes (C) Hypertension: Yes Immune Disorder: No Implanted Vascular Access Dvce: No Musculoskeletal: No Neurologic: No Psychiatric: Yes Reproductive: No Respiratory: No Immunizations Current: Yes Sleep Apnea: Yes Past Surgical History Abdominal Surgery: No Cardiac Surgery: No Coronary Artery Bypass Graft: No Endocrine Surgery: No Eye Surgery: Yes (RETINA SOCKET REPAIR) Genitourinary Surgery: No Gynecologic Surgery: No Thoracic Surgery: No Other Surgery: Yes (RIGHT HAND, RIGHT EYE) Psychiatric History Psychiatric History Discharge from due to mental illness. Was under treatment for Schizophrenia , but is not medication compliant. Hx Psychiatric Treatment: frequent visits for suicidal thoughts. History of Inpatient Treatment: No Social History Hx Alcohol Use: Yes (8 PACK EVERY OTHER DAY) Hx Tobacco Use: Yes (1 PPD) Hx Substance Use: Yes (COCAINE DAILY ) Substance Use Type: Alcohol, Crack, Nicotine/Cigarettes, Cocaine Hx of Substance Use Treatment: Yes Allergies-Medications (Allergen,Severity, Reaction): Coded Allergies: lisinopril (Verified Adverse Reaction, Intermediate, COUGH, 07/11/17) Reported Meds & Prescriptions Reported Meds & Active Scripts Active Walker with Front Wheels (Device) 1 Mis Mis Ea .XX DIRECTED Novolin 70-30 Inj (Insulin Human Isoph/Insulin Regular) 1,000 Unit/10 Ml Vial 40 Units SQ BID Gnp Vitamin B-1 (Thiamine HCl) 100 Mg Tab 100 Mg PO DAILY Omeprazole 20 Mg Tab 20 Mg PO DAILY Aspirin EC (Aspirin) 81 Mg Tabdr 81 Mg PO DAILY Reported Quetiapine (Quetiapine Fumarate) 25 Mg Tab 25 Mg PO DAILY Gabapentin 600 Mg Tab 600 Mg PO BID Bupropion HCl 75 Mg Tab 150 Mg PO BID Hydrochlorothiazide 12.5 Mg Cap 12.5 Mg PO DAILY Ventolin Hfa 18 GM Inh (Albuterol Sulfate) 90 Mcg/Act Aer 2 Puff INH Q6H PRN Methocarbamol 750 Mg Tab 750 Mg PO HS Mental Status Examination Appearance: Disheveled Consciousness: Alert Orientation: Person Motor Activity: Normal gait Speech: Unremarkable Language: Adequate Fund of Knowledge: Adequate Attention and Concentration: Easily Distracted Memory: Unremarkable Mood: Irritable Affect: Irritable Thought Process & Associations: Disorganized Thought Content: Hallucinations Hallucination Type: Auditory, Visual Delusion Type: Paranoid Suicidal Ideation: No Suicidal Plan: No Suicidal Intention: No Homicidal Ideation: No Homicidal Plan: No Homicidal Intention: No Insight: Adequate Judgment: Adequate MDM Medical Decision Making Medical Record Reviewed: Yes Assessment/Plan Patient is a 61 male who presents with auditory and visual hallucinations. He was medically discharged from the [employer] for mental illness and was diagnosed with Schizophrenia. He is not medication compliant. Patient is irritable and it is difficult to obtain a comprehensive history. He is willing to be admitted as he feels that he needs help. Based on the patient's presentation and risk for decompensation, will admit patient. Orders Orders Complete Blood Count With Diff (07/11/17 22:20) Comprehensive Metabolic Panel (07/11/17 22:20) Thyroid Stimulating Hormone (07/11/17 22:20) Psych Screen (07/11/17 22:20) Drug Screen, Random Urine (07/11/17 22:20) Alcohol (Ethanol) (07/11/17 22:20) Salicylates (Aspirin) (07/11/17 22:20) Tylenol (Acetaminophen) (07/11/17 22:20) Acetaminophen (Tylenol) (07/11/17 22:45) Diet 2000 Ada Cons Carb (07/12/17 Breakfast) Diet Regular Basic (07/12/17 Lunch) Results Vital Signs Date Time Temp Pulse Resp B/P (MAP) Pulse Ox O2 Delivery O2 Flow Rate FiO2 07/12/17 05:52 85 20 126/65 (85) 99 Room Air 07/11/17 22:12 98.6 82 20 143/66 (91) 100 Laboratory Tests Test 07/11/17 22:40 White Blood Count 8.5 Red Blood Count 4.98 Hemoglobin 14.2 Hematocrit 42.5 Mean Corpuscular Volume 85.3 Mean Corpuscular Hemoglobin 28.5 Mean Corpuscular Hemoglobin Concent 33.4 Red Cell Distribution Width 14.3 Platelet Count 277 Mean Platelet Volume 7.4 Neutrophils (%) (Auto) 50.8 Lymphocytes (%) (Auto) 37.8 Monocytes (%) (Auto) 8.4 Eosinophils (%) (Auto) 1.8 Basophils (%) (Auto) 1.2 Neutrophils # (Auto) 4.3 Lymphocytes # (Auto) 3.2 Monocytes # (Auto) 0.7 Eosinophils # (Auto) 0.1 Basophils # (Auto) 0.1 CBC Comment DIFF FINAL Differential Comment Blood Urea Nitrogen 12 Creatinine 1.16 Random Glucose 158 Total Protein 6.9 Albumin 3.2 Calcium Level 8.8 Alkaline Phosphatase 111 Aspartate Amino Transf (AST/SGOT) 26 Alanine Aminotransferase (ALT/SGPT) 36 Total Bilirubin 0.2 Sodium Level 137 Potassium Level 3.6 Chloride Level 101 Carbon Dioxide Level 23.8 Anion Gap 12 Estimat Glomerular Filtration Rate 78 Thyroid Stimulating Hormone 3rd Gen 0.673 Salicylates Level 4.1 Urine Opiates Screen NEG Acetaminophen Level LESS THAN 2.0 Urine Barbiturates Screen NEG Urine Amphetamines Screen NEG Urine Benzodiazepines Screen NEG Urine Cocaine Screen POS Urine Cannabinoids Screen NEG Ethyl Alcohol Level LESS THAN 3 Diagnosis Primary Impression: Schizophrenia Condition: Stable Mamie Villalobos Jul 12, 2017 14:15
[2017-07-12] MEDS ORDERED: MAGNESIUM HYDROXIDE SUSP 30 ML CUP PO PRN (14:30)
[2017-07-12] MEDS ORDERED: ACETAMINOPHEN 325 MG TAB PO PRN (14:30)
[2017-07-12] MEDS ORDERED: ALUMINUM/MAGNESIUM/SIMETH 30 ML CUP PO PRN (14:30)
[2017-07-12 16:51] VITALS: BP 140/75; PULSE 87; RESP 18; TEMP 98.1; O2SAT 98
[2017-07-12] MEDS ORDERED: REMOVE OLD PATCH T-DERMAL SCH (21:00)
[2017-07-13] MEDS ORDERED: NICOTINE 21 MG/24 HR PATCH T-DERMAL SCH (09:00)
--- NOTE | 2017-07-13 09:14 | HHI.HP ---
Provisional Diagnosis Admission Date Jul 12, 2017 at 14:18 [place] I. 1. Cocaine abuse 2. Suspected malingering [place]. 1. Antisocial personality style Certification of Person's Competence To Provide Express and Informed Consent I have personally examined Rubia Pruett , a person being served at [facility] on, Jul 13, 2017 09:14. Express and informed consent means consent voluntarily given in writing, by a competent person, after sufficient explanation and disclosure of the subject matter involved to enable the person to make a knowing and willful decision without any element of force, fraud, deceit, duress, or other form of constraint or coercion. This person is 18 years of age or older, is not now known to be incompetent to consent to treatment with a guardian advocate, and does not have a health care surrogate or proxy currently making medical treatment decisions. I have found this person to be one of the following: [x] Competent to provide express and informed consent, as defined above, for voluntary admission to this facility and is competent to provide express and informed consent for treatment. He/she has the consistent capacity to make well reasoned, willful, and knowing decisions concerning his or her medical or mental health treatment. The person fully and consistently understands the purpose of the admission for examination/placement and is fully capable of personally exercising all rights assured under [place] Incompetent to provide express and informed consent to voluntary admission, and this is incompetent to provide express and informed consent to treatment. The person must be transferred to involuntary status and a petition for a guardian advocate filed with the Circuit Court. [] Refusing to provide express and informed consent to voluntary admission but is competent to provide express and informed consent for treatment. The person must be discharged or transferred to involuntary status. Form shall be completed within 24 hours of a person's arrival at the receiving facility and filed in the clinical record of each person: 1. Admitted on a voluntary basis 2. Permitted to provide express and informed consent to his/her own treatment 3. Allowed to transfer from involuntary to voluntary status 4. Prior to permitting a person to consent to his or her own treatment after having been previously found incompetent to consent to treatment. History of Present Illness Capacity: Has Capacity Psych Chief Complaint: Threats of suicide HPI Mr. Pruett is a 61-year-old male with a self-reported history of bipolar disorder and schizophrenia and a chart history of substance use disorder with associated psychiatric disturbance at times and antisocial personality disorder who presented to the emergency department under a [place] act. Patient was apparently receiving detox services at [facility], and when they tried to discharge him patient "refused to leave the facility advising that he was still having suicidal and homicidal thoughts" according to ED provider notes. Reviewing our own electronic medical record, I note that the patient has been seen in consultation in the past by Dr. Saleh and last month by TARIQ Pizano. Patient seen and examined with nurse. Chart reviewed. Case discussed with nursing staff. Per nursing, patient has been perseverating on his diet and demanding discharge and generally being disruptive in an antisocial fashion. He has reportedly been stealing food from psychiatrically impaired peers. On my exam, patient presents with prominent antisocial personality traits. He presents as extremely manipulative. He continues to complain about his diet, saying that he was given more food when he was recently jailed for trespassing. I try to discuss his diet with him, since this seems to be his primary concern today, but he just insists that he should be given more food. He has a dearth of psychiatric symptoms. In particular, I can elicit no symptoms consistent with sadia rachel mood, anxiety or psychotic disorder. He does complain of feeling somewhat subjectively anxious and mood is mildly dysphoric. He denies any suicidal or homicidal ideation presently but when we discuss plan for discharge he issues some very vague threats of possibly, at some future point contemplating harm to self and says "I'm still fucking disorgitated (sic), I need at least another day." Main goal seems to be remaining on the inpatient unit. He does complain of some vague visual hallucinations but does not appear internally stimulated. No command auditory hallucinations to hurt self or others. Patient does not appear internally stimulated. No delusional material. No depressive or hypomanic/manic symptoms in evidence. Remainder of the psychiatric ROS is negative. No acute physical complaints. Past psychiatric history: Patient reports a history of bipolar disorder and schizophrenia. He follows psychiatrically at the [facility]. Most recent psychiatric admission was reportedly here at [place], which would have been in [address] Padron. I note that malingering was suspected at that time as well. He endorses a history of suicide attempts by walking into traffic, although it is difficult to ascertain whether he barely entertained these thoughts or made any concrete acts in furtherance. Family history: The patient denies a history of serious mental illness or suicide. Chemical dependency history: The patient endorses recent use of crack cocaine and alcohol. He was recently released from a detoxification facility per notes. He denies any history of DTs or seizures. Social history: Patient is homeless per chart. He is with 3 children. He has 2 years of college and is presently on disability. He served in the [employer]. He denies any access to guns or firearms. He has a Jehovah witness. No reported history of trauma. Review of Systems Except as stated in HPI: all other systems reviewed are Neg Past Family Social History Coded Allergies: lisinopril (Verified Adverse Reaction, Intermediate, COUGH, 07/11/17) Past Medical History See electronic medical record Active Scripts Walker with Front Wheels (Walker with Front Wheels) 1 Mis Mis, EA .XX DIRECTED, #1 0 Refills Prov:Sterling You MD 05/08/17 Insulin Human Isophane-Regular 70-30 Inj (Novolin 70-30 Inj) 1,000 Unit/10 Ml Vial, 40 UNITS SQ BID for Blood Sugar Management, #100 ML 0 Refills Prov:Leonor Vee PA-C 03/07/17 Thiamine HCl (Gnp Vitamin B-1) 100 Mg Tab, 100 MG PO DAILY for Nutritional Supplement, #5 TAB Prov:Thor Givens 07/06/16 Omeprazole (Omeprazole) 20 Mg Tab, 20 MG PO DAILY for Reflux, #30 TAB 0 Refills Prov:Thor Givens 07/06/[address] (Aspirin EC) 81 Mg Tabdr, 81 MG PO DAILY for Prevent Blood Clot, #30 TAB 0 Refills Prov:Leonor Vee PA-C 06/09/16 Reported Medications Quetiapine (Quetiapine) 25 Mg Tab, 25 MG PO DAILY, #30 TAB 0 Refills 03/17/17 Gabapentin (Gabapentin) 600 Mg Tab, 600 MG PO BID, #60 TAB 0 Refills 09/25/16 Bupropion HCl (Bupropion HCl) 75 Mg Tab, 150 MG PO BID for Control Depression, TAB 0 Refills 06/08/16 Hydrochlorothiazide (Hydrochlorothiazide) 12.5 Mg Cap, 12.5 MG PO DAILY, #30 CAP 0 Refills 12/15/15 Albuterol 18 GM Inh (Ventolin Hfa 18 GM Inh) 90 Mcg/Act Aer, 2 PUFF INH Q6H Y for SHORTNESS OF BREATH, #1 INHALER 0 Refills 12/15/15 Methocarbamol (Methocarbamol) 750 Mg Tab, 750 MG PO HS for Muscle Spasm, #120 TAB 0 Refills 12/15/15 Current Medications Medications (Trade) Dose Ordered Sig/Salas Route Start Time Stop Time Status Last Admin (Tylenol) 650 mg Q4H PRN PO 07/12/17 14:30 (Milk Of Magnesia Liq) 30 ml DAILY PRN PO 07/12/17 14:30 (Mag-Al Plus Susp Liq) 30 ml Q6H PRN PO 07/12/17 14:30 (Habitrol 21 Mg Patch.24 Hr) 1 patch DAILY T-DERMAL 07/13/17 09:00 Miscellaneous Information 1 HS T-DERMAL 07/12/17 21:00 Patient's Strengths (min. 2) Attending to basic needs. Verbally fluent. Physical Exam Physical examination completed by ED provider. On my examination today, the patient appears to be in no acute physical distress. No motor abnormalities noted. No signs of intoxication or withdrawal noted. Labs and vitals reviewed: Vital Signs Vital Signs Date Time Temp Pulse Resp B/P (MAP) Pulse Ox O2 Delivery O2 Flow Rate FiO2 07/12/17 16:51 98.1 87 18 140/75 (96) 98 07/12/17 05:52 Room Air Lab Results Item Value Date Time White Blood Count 8.5 TH/MM3 07/11/17 2240 Hemoglobin 14.2 GM/DL 07/11/17 2240 Platelet Count 277 TH/MM3 07/11/17 2240 Sodium Level 137 MEQ/L 07/11/17 2240 Potassium Level 3.6 MEQ/L 07/11/17 2240 Chloride Level 101 MEQ/L 07/11/17 2240 Carbon Dioxide Level 23.8 MEQ/L 07/11/17 2240 Anion Gap 12 MEQ/L 07/11/17 2240 Blood Urea Nitrogen 12 MG/DL 07/11/17 2240 Creatinine 1.16 MG/DL 6/2/18 2240 Estimat Glomerular Filtration Rate 78 ML/MIN L 07/11/172239 Alanine Aminotransferase (ALT/SGPT) 36 U/L 07/11/172239 Aspartate Amino Transf (AST/SGOT) 26 U/L 07/11/172239 Alkaline Phosphatase 111 U/L 07/11/172239 Thyroid Stimulating Hormone 3rd Gen 0.673 uIU/ML 07/11/172239 Urine Cocaine Screen POS H 07/11/172239 Mental Status Examination Appearance: Appropriate Consciousness: Alert Orientation: x4 Motor Activity: Other (No motor abnormalities noted) Speech: Unremarkable Language: Adequate Fund of Knowledge: Adequate Attention and Concentration: Adequate Memory: Unremarkable (Grossly intact on clinical exam) Mood: Anxious (Mild), Other (Somewhat dysphoric) Affect: Other (Appears a little dysphoric but not particularly anxious) Thought Process & Associations: Intact, Logical, Linear Thought Content: Appropriate Hallucination Type: Visual (Does not appear internally stimulated), Other (No CAH to hurt self or others) Delusion Type: None Suicidal Ideation: No Suicidal Plan: No Suicidal Intention: No Homicidal Ideation: No Homicidal Plan: No Homicidal Intention: No Insight: Adequate Judgment: Adequate Assessment & Plan Problem List: (1) Cocaine abuse, unspecified ICD Codes: F14.10 - Cocaine abuse, uncomplicated Status: Acute (2) Malingering ICD Codes: Z76.5 - Malingerer [conscious simulation] (3) Antisocial personality style Assessment & Plan 61-year-old male with psychiatric history as detailed above presently admitted to the inpatient psychiatric unit under a [place] act. Patient was just discharged from detox unit at [facility] and threatened SI/HI as they were trying to discharge him per notes. Patient's presentation on my examination today is quite manipulative and malingering, possibly for long term, is suspected. The patient does have substance use issues and appears to suffer from antisocial personality style, but there is no objective evidence of unstable mental illness as defined under the [place] Act. He is presently denying suicidal or homicidal ideation, although he does issue veiled threats for after discharge with the stated goal of remaining on the unit "at least another day." There is no evidence of self-care deficit. Synthesizing this information and based on the available evidence, I offset press operator helper that the patient does not meet the [place] act criteria. Further, he would not benefit from inpatient psychiatric hospitalization on the general inpatient unit at this time. He would benefit from chemical dependency evaluation and treatment, and I have instructed the counselor to refer for these services on discharge. He should also follow up with his outpatient mental health providers. I have counseled the patient to abstain from substances of abuse. I have counseled the patient regarding warning signs for need to return to the psychiatric emergency room as part of a general safety plan. Patient will be discharged today in stable condition with psychiatric follow-up as arranged by counselor. Patient is also to follow up with primary care. I have provided the patient no prescriptions on discharge and he is to resume his prior to admission regimen. This note serves also as my discharge summary. N.B. Patient's substance use issues and antisocial personality style confer chronic but not acute or imminent risk for harm to self/others, and neither of these risk factors would be improved by hospitalization on the general inpatient psychiatric unit. Further, since malingering is suspected, it is possible that the patient may manufacture symptoms or even make some sort of gesture to facilitate readmission to the inpatient psychiatric unit. This is not a valid reason to retain the patient at this time, and it would be counter therapeutic to the patient's overall case in this clinician's judgment to give in to his manipulations. Discharge Planning Discharge today Request HC Surrog/Guard Advoc?: No Tre Sow MD Jul 13, 2017 09:14
== END 2017-07-13 12:15 | disposition home or self-care (01) | DRG 883 ==
LOC: NEPD 21:33 → NEDA 07-12 14:18 → H270 07-12 16:42
PROVIDERS: ADMIT Psychiatry & Neurology Psychiatry; ATTEND Psychiatry & Neurology Psychiatry
DX: F60.2 Antisocial personality disorder (principal); F20.9 Schizophrenia, unspecified; K75.9 Inflammatory liver disease, unspecified; I10 Essential (primary) hypertension; F14.10 Cocaine abuse, uncomplicated; E11.9 Type 2 diabetes mellitus without complications; E78.00 Pure hypercholesterolemia, unspecified; F31.9 Bipolar disorder, unspecified; G47.30 Sleep apnea, unspecified; K21.9 Gastro-esophageal reflux disease without esophagitis; F17.210 Nicotine dependence, cigarettes, uncomplicated; F41.9 Anxiety disorder, unspecified; G89.29 Other chronic pain; Z76.5 Malingerer [conscious simulation]; Z59.0 Homelessness; Z79.4 Long term (current) use of insulin; Z79.82 Long term (current) use of aspirin; Z91.5 Personal history of self-harm
CPT/HCPCS: 80053; 80307; 84443; 85025

== ENCOUNTER 2017-07-16 23:46 | Emergency (ER) | payer OTHER ==
[~2017-07-16] VITALS: Ht 172.7 cm; Wt 76.3 kg
[2017-07-16 23:56] VITALS: BP 159/81; PULSE 72; RESP 20; TEMP 98; O2SAT 98
--- NOTE | 2017-07-17 00:08 | PD ---
HPI Chief Complaint: Fall Time Seen by Provider: 23:58 Travel History International Travel<30 days: No Contact w/Intl Traveler<30days: No Traveled to known affect area: No History of Present Illness HPI 61-year-old male came to the emergency room brought by EMS after he lost his balance and fell on the ground from a chair. Patient is intoxicated but says that he scraped his leg and hit his head. Vital signs are stable. Patient is a frequent visitor to the ER with similar complaints. He is a known alcoholic. Patient does not appear to be in any distress. When I went in the room to talk to him it seemed like he was sleeping and prefer to sleep rather than answer questions. However after calling his name couple times he did wake up and told me the nature of the injury. No open wounds. PFSH Past Medical History Narrative Medical List of his past medical, surgical, social and family history is reviewed from the nursing note. Hx Anticoagulant Therapy: Yes (ASPIRIN) Asthma: No Blood Disorders: No Anxiety: Yes Depression: Yes Heart Rhythm Problems: No Cancer: No Cardiac Catheterization: No Cardiovascular Problems: Yes High Cholesterol: Yes Chest Pain: Yes Congestive Heart Failure: No COPD: No Diabetes: Yes Diminished Hearing: No Endocrine: Yes Gastrointestinal Disorders: Yes GERD: Yes Genitourinary: No Hepatitis: Yes (C) Hypertension: Yes Immune Disorder: No Implanted Vascular Access Dvce: No Musculoskeletal: No Neurologic: No Psychiatric: Yes Reproductive: No Respiratory: No Immunizations Current: Yes Sleep Apnea: Yes Past Surgical History Abdominal Surgery: No Cardiac Surgery: No Coronary Artery Bypass Graft: No Endocrine Surgery: No Eye Surgery: Yes (RETINA SOCKET REPAIR) Genitourinary Surgery: No Gynecologic Surgery: No Thoracic Surgery: No Other Surgery: Yes (RIGHT HAND, RIGHT EYE) Social History Alcohol Use: Yes (8 PACK EVERY OTHER DAY) Tobacco Use: Yes (1 PPD) Substance Use: Yes (COCAINE DAILY ) Allergies-Medications (Allergen,Severity, Reaction): Coded Allergies: lisinopril (Verified Adverse Reaction, Intermediate, COUGH, 07/11/17) Comments List of his allergies reviewed from the nursing Reported Meds & Prescriptions Reported Meds & Active Scripts Active Novolin 70-30 Inj (Insulin Human Isoph/Insulin Regular) 1,000 Unit/10 Ml Vial 40 Units SQ BID Omeprazole 20 Mg Tab 20 Mg PO DAILY Aspirin EC (Aspirin) 81 Mg Tabdr 81 Mg PO DAILY Reported Quetiapine (Quetiapine Fumarate) 25 Mg Tab 25 Mg PO DAILY Gabapentin 600 Mg Tab 600 Mg PO BID Bupropion HCl 75 Mg Tab 150 Mg PO BID Hydrochlorothiazide 12.5 Mg Cap 12.5 Mg PO DAILY Ventolin Hfa 18 GM Inh (Albuterol Sulfate) 90 Mcg/Act Aer 2 Puff INH Q6H PRN Narrative Medication List of his home medications reviewed from the nursing note Review of Systems ROS Limitations: Intoxication Except as stated in HPI: all other systems reviewed are Neg Physical Exam Narrative GENERAL: Intoxicated, no obvious to SKIN: Focused skin assessment warm/dry. HEAD: Atraumatic. Normocephalic. EYES: Pupils equal and round. No scleral icterus. No injection or drainage. ENT: No nasal bleeding or discharge. Mucous membranes pink and moist. NECK: Trachea midline. No JVD. CARDIOVASCULAR: Regular rate and rhythm. No murmur appreciated. RESPIRATORY: No accessory muscle use. Clear to auscultation. Breath sounds equal bilaterally. GASTROINTESTINAL: Abdomen soft, non-tender, nondistended. Hepatic and splenic margins not palpable. MUSCULOSKELETAL: No obvious deformities. No clubbing. No cyanosis. No edema. NEUROLOGICAL: Intoxicated. No obvious cranial nerve deficits. Motor grossly within normal limits. Normal speech. PSYCHIATRIC: Appropriate mood and affect; insight and judgment normal. Data Data Last Documented VS Orders Orders Ct Brain W/O Iv Contrast(Rout) (07/17/17 ) Ed Discharge Order (07/17/17 05:44) [facility] Medical Decision Making Medical Screen Exam Complete: Yes Emergency Medical Condition: Yes Medical Record Reviewed: Yes Differential Diagnosis Chronic alcohol abuse, acute intoxication, head injury Narrative Course 12:[address] was done which appears to be normal. Awaiting for the read from the radiologist. Patient will sleep it off until he is clinically sober to be discharged. Procedures EKG Prior to Arrival: Christin Miguel MD Jul 17, 2017 00:08
--- NOTE | 2017-07-17 00:36 | RADRPT ---
EXAM DATE: 07/17/2017 12:26 AM EDT AGE/SEX: 61 years / Male INDICATIONS: Trauma, fall. CLINICAL DATA: This is the patient's initial encounter. Patient reports that signs and symptoms have been present for 1 day and indicates a pain score of Nonresponsive. MEDICAL/SURGICAL HISTORY: None. . RADIATION DOSE: 52.13 CTDI (mGy) COMPARISON: [facility] [place] BRAIN W/O CONTRAST, 05/21/2017. . TECHNIQUE: CT of the head without contrast. Using automated exposure control and adjustment of the mA and/or kV according to patient size, radiation dose was kept as low as reasonably achievable to ob tain optimal diagnostic quality images. FINDINGS: Cerebrum: The ventricles are normal for age. No evidence of midline shift, mass lesion, hemorrhage or acute infarction. No extraaxial fluid collections are seen. Posterior Fossa: The cerebellum and brainstem are intact. The 4th ventricle is midline. The cerebe llopontine angle is unremarkable. Extracranial: The visualized portion of the orbits is intact. Mucosal thickening in septated right s phenoid sinus. Skull: The calvaria is intact. No evidence of skull fracture. CONCLUSION: 1. No acute intracranial abnormalities. Mucosal thickening septated right sphenoid sinus. Electronically signed by: Anegl Childers MD 07/17/2017 12:34 AM EDT
== END 2017-07-17 05:59 | disposition home or self-care (01) ==
LOC: NEPD 23:46
DX: S09.90XA Unspecified injury of head, initial encounter (principal); F10.129 Alcohol abuse with intoxication, unspecified; W07.XXXA Fall from chair, initial encounter; I10 Essential (primary) hypertension; F32.9 Major depressive disorder, single episode, unspecified; E78.00 Pure hypercholesterolemia, unspecified; E11.9 Type 2 diabetes mellitus without complications; F17.210 Nicotine dependence, cigarettes, uncomplicated; Z79.4 Long term (current) use of insulin; Z86.19 Personal history of other infectious and parasitic diseases; Z79.899 Other long term (current) drug therapy
CPT/HCPCS: 70450

== ENCOUNTER 2017-08-02 05:06 | Emergency (ER) | payer OTHER ==
[~2017-08-02] VITALS: Ht 172.7 cm; Wt 80.0 kg
[~2017-08-02 05:06] MED LIST changes: -METH750T PO; -THIA100 PO; -WALKER WHEELS/F1 MIS
[2017-08-02 05:09] VITALS: BP 166/84; PULSE 93; RESP 16; TEMP 97.7; O2SAT 100
--- NOTE | 2017-08-02 05:32 | PD ---
HPI Chief Complaint: Psychiatric Symptoms Time Seen by Provider: 05:21 Travel History International Travel<30 days: No Contact w/Intl Traveler<30days: No Traveled to known affect area: No History of Present Illness HPI 61-year-old black male presents emergency department on a voluntary basis for psychological evaluation. Patient has a history of mental health and substance abuse. He was just released from [facility] 3 days ago. He has been drinking alcohol and smoking crack cocaine. He states that he did not fill his prescriptions for his Seroquel and has not been taking his medications though he is supposed to. He states that due to his intoxicated state he has contemplated walking out to traffic. He states that he feels he needs to be admitted to be back on his medication and become sober. He states that he has not nowhere to stay at this point. He denies any toxic ingestions. He denies any other medical complaints. Symptoms are moderate to severe. Exacerbated by alcohol and substance abuse. No alleviating factor. PFSH Past Medical History Hx Anticoagulant Therapy: Yes (ASPIRIN) Asthma: No Blood Disorders: No Anxiety: Yes Depression: Yes Heart Rhythm Problems: No Cancer: No Cardiac Catheterization: No Cardiovascular Problems: Yes High Cholesterol: Yes Chest Pain: Yes Congestive Heart Failure: No COPD: No Diabetes: Yes Patient Takes Glucophage: No Diminished Hearing: No Endocrine: Yes GERD: Yes Genitourinary: No Hepatitis: Yes (C) Heparin Induced Thrombocytopen: No Hypertension: Yes Immune Disorder: No Implanted Vascular Access Dvce: No Musculoskeletal: No Neurologic: No Psychiatric: Yes Reproductive: No Respiratory: No Immunizations Current: Yes Sleep Apnea: Yes Past Surgical History Abdominal Surgery: No Cardiac Surgery: No Coronary Artery Bypass Graft: No Endocrine Surgery: No Eye Surgery: Yes (RETINA SOCKET REPAIR) Genitourinary Surgery: No Gynecologic Surgery: No Thoracic Surgery: No Other Surgery: Yes (RIGHT HAND, RIGHT EYE) Family History Family Myocardial Infarction: Yes (father) Social History Alcohol Use: Yes (8 PACK EVERY OTHER DAY) Tobacco Use: Yes (1 PPD) Substance Use: Yes (COCAINE DAILY ) Allergies-Medications (Allergen,Severity, Reaction): Coded Allergies: lisinopril (Verified Adverse Reaction, Intermediate, COUGH, 08/02/17) Reported Meds & Prescriptions Reported Meds & Active Scripts Active Novolin 70-30 Inj (Insulin Human Isoph/Insulin Regular) 1,000 Unit/10 Ml Vial 40 Units SQ BID Omeprazole 20 Mg Tab 20 Mg PO DAILY Aspirin EC (Aspirin) 81 Mg Tabdr 81 Mg PO DAILY Reported Quetiapine (Quetiapine Fumarate) 25 Mg Tab 25 Mg PO DAILY Gabapentin 600 Mg Tab 600 Mg PO BID Bupropion HCl 75 Mg Tab 150 Mg PO BID Hydrochlorothiazide 12.5 Mg Cap 12.5 Mg PO DAILY Ventolin Hfa 18 GM Inh (Albuterol Sulfate) 90 Mcg/Act Aer 2 Puff INH Q6H PRN Review of Systems Except as stated in HPI: all other systems reviewed are Neg Psychiatric: Positive: Depression, Suicidal Ideations, Mood Disorder, Substance Abuse, No: Anxiety, Disorder of Thought, Homicidal Ideation Physical Exam Narrative GENERAL: Well-nourished, well-developed patient. Patient appears acutely under the influence of alcohol and drugs SKIN: Warm and dry. HEAD: Normocephalic and atraumatic. EYES: No scleral icterus. No injection or drainage. ENT: No nasal drainage noted. Mucous membranes pink. Airway patent. NECK: Supple, trachea midline. Moves head freely without obvious discomfort. CARDIOVASCULAR: Regular rate and rhythm without murmurs, gallops, or rubs. RESPIRATORY: Breath sounds equal bilaterally. No accessory muscle use. GASTROINTESTINAL: Abdomen soft, non-tender, nondistended. EXTREMITIES: No cyanosis or edema. BACK: Nontender without obvious deformity. No CVA tenderness. NEURO: Patient is alert and oriented. no sensorimotor deficits. Nonfocal. Normal speech. PSYCH: No delusions. No auditory or visual hallucinations. Data Data Last Documented VS Vital Signs Date Time Temp Pulse Resp B/P (MAP) Pulse Ox O2 Delivery O2 Flow Rate FiO2 08/02/17 05:09 97.7 93 16 166/84 (111) 100 Orders Orders Complete Blood Count With Diff (08/02/17 05:29) Comprehensive Metabolic Panel (08/02/17 05:29) Psych Screen (08/02/17 05:29) Drug Screen, Random Urine (08/02/17 05:29) Alcohol (Ethanol) (08/02/17 05:29) MDM Medical Decision Making Medical Screen Exam Complete: Yes Emergency Medical Condition: Yes Medical Record Reviewed: Yes Differential Diagnosis MDM: High Differential diagnoses: Schizophrenia, schizoaffective disorder, bipolar, anxiety, depression, adjustment reaction, mood disorder NOS, ODD, depressive disorder NOS, dementia, dementia with agitation, psychosis NOS, substance induced mood disorder, DMDD, Asperger syndrome, infection,electrolyte abnormality, malingering. Narrative Course Mental health screening discussed with the patient. Psychiatric screen ordered. The patient's been medically cleared. This is medical clearance for psychiatric admission, polysubstance abuse Diagnosis Primary Impression: Medical clearance for psychiatric admission Additional Impression: Polysubstance dependence Condition: Stable Angel Demarco Aug 02, 2017 05:32
[2017-08-02 06:00] LABS: AUTOMATED NEUTROPHIL # 3.5 TH/MM3 (1.8-7.7); BASOPHIL # 0.1 TH/MM3 (0-0.2); BASOPHIL % 1.3 % (0.0-2.0); EOSINOPHIL # 0.1 TH/MM3 (0-0.4); EOSINOPHIL % 1.6 % (0.0-4.0); HEMATOCRIT 46.4 % (39.0-51.0); HEMOGLOBIN 15.7 GM/DL (13.0-17.0); LYMPH % 36.1 % (9.0-44.0); LYMPHOCYTE # 2.9 TH/MM3 (1.0-4.8); MEAN CELL VOLUME 85.7 FL (80.0-100.0); MEAN CORPUSCULAR HGB CONC 33.8 % (32.0-36.0); MEAN PLATELET VOLUME 7.7 FL (7.0-11.0); MONO % 16.8 % (0.0-8.0); MONOCYTE # 1.3 TH/MM3 (0-0.9); NEUT % 44.2 % (16.0-70.0); PLATELET COUNT 233 TH/MM3 (150-450); RED BLOOD COUNT 5.41 MIL/MM3 (4.50-5.90); RED CELL DISTRIBUTION WIDTH 14.4 % (11.6-17.2); WHITE BLOOD COUNT 7.9 TH/MM3 (4.0-11.0)
[2017-08-02 06:25] LABS: ALBUMIN 3.9 GM/DL (3.4-5.0); ALT (GPT) 58 U/L (12-78); AST (GOT) 68 U/L (15-37); BICARBONATE 24.5 MEQ/L (21.0-32.0); BLOOD UREA NITROGEN 16 MG/DL (7-18); CALCIUM 8.6 MG/DL (8.5-10.1); CHLORIDE 101 MEQ/L (98-107); CREATININE 1.23 MG/DL (0.60-1.30); GLOMERULAR FILTRATION RATE 73 ML/MIN (>89); GLUCOSE,RANDOM 133 MG/DL (74-106); SODIUM (NA) 136 MEQ/L (136-145)
[2017-08-02 06:28] LABS: ALKALINE PHOSPHATASE 136 U/L (45-117); TOTAL BILIRUBIN ADULT 0.9 MG/DL (0.2-1.0); TOTAL PROTEIN 8.1 GM/DL (6.4-8.2)
--- NOTE | 2017-08-02 15:46 | PD ---
History of Present Illness Chief Complaint: Psychiatric Symptoms Time Seen by Provider: 15:20 Travel History International Travel<30 Days: No Contact w/Intl Traveler<30days: No Known affected area: No Legal Status Legal Status: Voluntary History of Present Illness: History of Present Illness HPI 61-year-old black single, homeless male presents to emergency department on a voluntary basis requesting a psychiatric evaluation. He was just released from [facility] 3 days ago and since his release he has been drinking and smoking crack cocaine. His toxicology is positive for cocaine. He states that he did not fill the prescriptions that were given to him at [facility]. He states that due to his intoxicated state he has contemplated walking out to traffic. He has not made any attempt at harming himself. He states to ED provider " that he feels he needs to be admitted to be back on his medication and become sober. He states that he has not nowhere to stay at this point." Patient was monitored. He presented no evidence of any behavioral dysregulation, no agitation, no suicidality. He requested food and ate x 3 Seen with Corey Hudson present during evaluation. He is alert oriented, speech is clear and goal-directed. No evidence of any psychosis, no adela, no hypomania. He is very clear in terms of what his needs are for being here at [facility]. He is requesting Neurontin for his neuropathy. 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 He also states that he came to the hospital " to dry out". He does not present any suicidal or homicidal ideation until a discussion of being discharged is initiated. He does not present any plan but states " What if I'm still suicidal". The patient's presentation appears manipulative and malingered with intent of obtaining skilled nursing. PFSH Past Medical History Hx Anticoagulant Therapy: Yes (ASPIRIN) Asthma: No Blood Disorders: No Anxiety: Yes Depression: Yes Heart Rhythm Problems: No Cancer: No Cardiac Catheterization: No Cardiovascular Problems: Yes High Cholesterol: Yes Chest Pain: Yes Congestive Heart Failure: No COPD: No Diabetes: Yes Patient Takes Glucophage: No Diminished Hearing: No Endocrine: Yes GERD: Yes Genitourinary: No Hepatitis: Yes (C) Heparin Induced Thrombocytopen: No Hypertension: Yes Immune Disorder: No Implanted Vascular Access Dvce: No Musculoskeletal: No Neurologic: No Psychiatric: Yes Reproductive: No Respiratory: No Immunizations Current: Yes Sleep Apnea: Yes Past Surgical History Abdominal Surgery: No Cardiac Surgery: No Coronary Artery Bypass Graft: No Endocrine Surgery: No Eye Surgery: Yes (RETINA SOCKET REPAIR) Genitourinary Surgery: No Gynecologic Surgery: No Thoracic Surgery: No Other Surgery: Yes (RIGHT HAND, RIGHT EYE) Psychiatric History Psychiatric History Hx Psychiatric Treatment: Has had 10+ visits to the ED for alcohol or other substance related issues. History of Inpatient Treatment: Yes ([facility] 24 hour admission to inpatient psychiatric unit) Guns or firearms in home: No Social History Single, unemployed, homeless. Hx Alcohol Use: Yes (8 PACK EVERY OTHER DAY) Hx Tobacco Use: Yes (1 PPD) Hx Substance Use: Yes (PT LAST USED THIS AM) Substance Use Type: Alcohol, Cocaine Hx of Substance Use Treatment: Yes Family Psychiatric History Negative Allergies-Medications (Allergen,Severity, Reaction): Coded Allergies: lisinopril (Verified Adverse Reaction, Intermediate, COUGH, 08/02/17) Reported Meds & Prescriptions Reported Meds & Active Scripts Active Novolin 70-30 Inj (Insulin Human Isoph/Insulin Regular) 1,000 Unit/10 Ml Vial 40 Units SQ BID Omeprazole 20 Mg Tab 20 Mg PO DAILY Aspirin EC (Aspirin) 81 Mg Tabdr 81 Mg PO DAILY Reported Quetiapine (Quetiapine Fumarate) 25 Mg Tab 25 Mg PO DAILY Gabapentin 600 Mg Tab 600 Mg PO BID Bupropion HCl 75 Mg Tab 150 Mg PO BID Hydrochlorothiazide 12.5 Mg Cap 12.5 Mg PO DAILY Ventolin Hfa 18 GM Inh (Albuterol Sulfate) 90 Mcg/Act Aer 2 Puff INH Q6H PRN Review of Systems Musculoskeletal: COMPLAINS OF: Muscle aches Except as stated in HPI: all other systems reviewed are Neg Mental Status Examination Appearance: Appropriate Consciousness: Alert Orientation: x4 Motor Activity: Normal gait Speech: Unremarkable Language: Adequate Fund of Knowledge: Adequate Attention and Concentration: Adequate Memory: Unremarkable Mood: Appropriate, Angry (When a discussion of possible discharge was initiated ) Affect: Appropriate Thought Process & Associations: Intact, Logical, Goal directed Thought Content: Appropriate Hallucination Type: None Delusion Type: None Suicidal Ideation: No Suicidal Plan: No Suicidal Intention: No Homicidal Ideation: No Homicidal Plan: No Homicidal Intention: No Insight: Poor Judgment: Impulsive MDM Medical Decision Making Medical Record Reviewed: Yes Assessment/Plan History of Present Illness HPI 61-year-old black male with history of substance dependence who presents to the emergency department on a voluntary basis requesting admission so that he can get back on his medication and become sober. The patient was just released from [facility] 3 days ago. He has been on a cocaine and alcohol binge. Patient is very clear as to what his requirements are including long-term substance abuse treatment in [place]. I informed him that we will not be able to provide him with detox services here at [facility] at [facility] and that we do not provide treatment for substance abuse. He is referred to [facility]. He becomes angry when he is told that he does not meet criteria for inpatient psychiatric hospitalization. Patient's presentation is quite manipulative with goal of obtaining skilled nursing, and malingering is suspected. To the extent that he has actual psychiatric symptoms it seems that these are wholly substance related. I cannot detect any evidence of a mental illness. The patient would not benefit from general inpatient psychiatric hospitalization presently, and in fact he will be counter therapeutic in the long-term to given to his manipulations. I will provide him with a dose of Neurontin for his complaints of pain related to his neuropathy and he will be released from the emergency department. He is instructed to follow up with [facility]. Orders Orders Complete Blood Count With Diff (08/02/17 05:29) Comprehensive Metabolic Panel (08/02/17 05:29) Psych Screen (08/02/17 05:29) Drug Screen, Random Urine (08/02/17 05:29) Alcohol (Ethanol) (08/02/17 05:29) Diet Regular Basic (08/02/17 Dinner) Results Vital Signs Date Time Temp Pulse Resp B/P (MAP) Pulse Ox O2 Delivery O2 Flow Rate FiO2 08/02/17 05:09 97.7 93 16 166/84 (111) 100 Laboratory Tests Test 08/02/17 05:35 White Blood Count 7.9 Red Blood Count 5.41 Hemoglobin 15.7 Hematocrit 46.4 Mean Corpuscular Volume 85.7 Mean Corpuscular Hemoglobin 29.0 Mean Corpuscular Hemoglobin Concent 33.8 Red Cell Distribution Width 14.4 Platelet Count 233 Mean Platelet Volume 7.7 Neutrophils (%) (Auto) 44.2 Lymphocytes (%) (Auto) 36.1 Monocytes (%) (Auto) 16.8 Eosinophils (%) (Auto) 1.6 Basophils (%) (Auto) 1.3 Neutrophils # (Auto) 3.5 Lymphocytes # (Auto) 2.9 Monocytes # (Auto) 1.3 Eosinophils # (Auto) 0.1 Basophils # (Auto) 0.1 CBC Comment DIFF FINAL Differential Comment Blood Urea Nitrogen 16 Creatinine 1.23 Random Glucose 133 Total Protein 8.1 Albumin 3.9 Calcium Level 8.6 Alkaline Phosphatase 136 Aspartate Amino Transf (AST/SGOT) 68 Alanine Aminotransferase (ALT/SGPT) 58 Total Bilirubin 0.9 Sodium Level 136 Potassium Level 3.9 Chloride Level 101 Carbon Dioxide Level 24.5 Anion Gap 11 Estimat Glomerular Filtration Rate 73 Urine Opiates Screen NEG Urine Barbiturates Screen NEG Urine Amphetamines Screen NEG Urine Benzodiazepines Screen NEG Urine Cocaine Screen POS Urine Cannabinoids Screen NEG Ethyl Alcohol Level 5 Diagnosis Primary Impression: Polysubstance dependence Additional Impressions: Antisocial personality disorder Cocaine abuse, unspecified Malingering Psychiatrically Cleared: Yes Med/ Other Pt Specific Info: No Change to Meds, No Meds Exist/No RX given Disposition: 01 DISCHARGE HOME Condition: Stable Problem Qualifiers Geovanna Weber [employer] Aug 02, 2017 15:46
[2017-08-02] MEDS ORDERED: GABAPENTIN 300 MG CAP PO ONE (16:00)
== END 2017-08-02 17:00 | disposition home or self-care (01) ==
LOC: NEPD 05:06 → NEPJ 17:00
DX: Z02.89 Encounter for other administrative examinations (principal); F19.20 Other psychoactive substance dependence, uncomplicated; F60.2 Antisocial personality disorder; F14.10 Cocaine abuse, uncomplicated; Z76.5 Malingerer [conscious simulation]; E11.9 Type 2 diabetes mellitus without complications; I10 Essential (primary) hypertension; K21.9 Gastro-esophageal reflux disease without esophagitis; E78.00 Pure hypercholesterolemia, unspecified; G47.30 Sleep apnea, unspecified; F41.8 Other specified anxiety disorders; F17.200 Nicotine dependence, unspecified, uncomplicated; Z79.4 Long term (current) use of insulin; Z79.82 Long term (current) use of aspirin; Z86.79 Personal history of other diseases of the circulatory system
CPT/HCPCS: 80053; 80307; 85025; 99283

== ENCOUNTER 2017-09-23 00:27 | Observation (INO) ==
--- NOTE | 2017-09-23 01:13 | XR ---
EXAM DATE: 09/23/2017 12:55 AM EDT AGE/SEX: 61 years / Male INDICATIONS: Chest pain. CLINICAL DATA: This is the patient's initial encounter. Patient reports that signs and symptoms have been present for 1 day and indicates a pain score of Nonresponsive. MEDICAL/SURGICAL HISTORY: Non-responsive. Non-responsive. COMPARISON: [facility] [place], CHEST 1V SINGLE AP, 09/20/2017. . FINDINGS: A single AP view of the chest demonstrates the lungs to be symmetrically aerated without evidence of mass, infiltrate or effusion. The cardiomediastinal contours are unremarkable. Osseous structures a re intact. CONCLUSION: No acute cardiopulmonary disease Electronically signed by: Jair Benz MD 09/23/2017 1:11 AM EDT
[2017-09-23 01:15] LABS: Baso # (Auto) 0.1 th/mm3 (0.0-0.2); Baso % (Auto) 0.9 % (0.0-2.0); Eos # (Auto) 0.1 th/mm3 (0.0-0.4); Eos % (Auto) 1.8 % (0.0-4.0); Hematocrit 39.2 % (39.0-51.0); Lymph # (Auto) 2.5 th/mm3 (1.0-4.8); Lymph % (Auto) 33.9 % (9.0-44.0); Mean Corpuscular HGB Conc 33.3 % (32.0-36.0); Mean Corpuscular Hemoglobin 28.6 pg (27.0-34.0); Mean Corpuscular Volume 85.9 fL (80.0-100.0); Mean Platelet Volume 7.6 fL (7.0-11.0); Mono # (Auto) 0.8 th/mm3 (0.0-0.9); Mono % (Auto) 11.2 % (0.0-8.0); Neut # (Auto) 3.9 th/mm3 (1.8-7.7); Neut % (Auto) 52.2 % (16.0-70.0); Platelet Count 252 th/mm3 (150-450); Red Blood Count 4.56 mil/mm3 (4.50-5.90); Red Cell Distribution Width 14.5 % (11.6-17.2); White Blood Count 7.4 th/mm3 (4.0-11.0)
[2017-09-23 01:24] LABS: Activated Partial Thrombo Time 25.4 sec (24.3-30.1); INR 1.1 Ratio; Prothrombin Time 11.6 sec (9.8-11.6)
[2017-09-23 01:46] LABS: Troponin I 0.09 ng/mL (0.02-0.05)
[2017-09-23 01:47] LABS: Calcium 7.8 mg/dL (8.5-10.1); Carbon Dioxide 24.5 meq/L (21.0-32.0); Potassium 3.7 meq/L (3.5-5.1)
[2017-09-23] MEDS ORDERED: LORazepam 1 MG Tablet PO ONE (04:58)
--- NOTE | 2017-09-23 04:58 | ED ---
HPI General Chief Complaint: Chest Pain Stated Complaint: Chest Pain Time Seen by Provider: 09/23/17 00:34 History of Present Illness HPI narrative: Patient is a 61year-old male who is coming in with left-sided chest pain he says it started sometime tonight he had been using crack cocaine . HIS PAIN came on not long after he started using.. he has had the same in the past, he has been in our ER with the same in the past. Patient is not diaphoretic no nausea no vomiting chest pain continues in the ER .. he is given aspirin, ativan and nitroglycerin first troponin 0 0.09 Complete Quality Measures for STEMI Alert Patients Related Data Previous Rx's Medication Instructions Recorded amlodipine [Norvasc] 5 mg PO DAILY #30 tab 09/24/17 aspirin 325 mg PO DAILY #30 tab 09/24/17 famotidine 10 mg PO BID #60 tab 09/24/17 nicotine 1 patch TRANSDERMAL DAILY #30 ea 09/24/17 Allergies Allergy/AdvReac Type Severity Reaction Status Date / Time lisinopril AdvReac Intermediate COUGH Verified 10/04/17 16:46 Review of Systems ROS: all other systems reviewed are negative Cardiovascular Reports chest pain [facility] Social History Social History Substance History: Active Abuse Second Hand Smoke Exposure: Yes Smoking Status: Current every day smoker Tobacco Type: Cigarettes How Often Do You Have a Drink Containing Alcohol: 4 or more times a week Recent Out of Country Travel within the Last 8 Weeks: No Exam Narrative Exam Narrative: GENERAL: no acute distress SKIN: Warm and dry. HEAD: Atraumatic. Normocephalic. EYES: Pupils equal and round. No scleral icterus. No injection or drainage. ENT: No nasal bleeding or discharge. Mucous membranes pink and moist. NECK: Trachea midline. No JVD. CARDIOVASCULAR: Regular rate and rhythm. RESPIRATORY: No accessory muscle use. Clear to auscultation. Breath sounds equal bilaterally. GASTROINTESTINAL: Abdomen soft, non-tender, nondistended. Hepatic and splenic margins not palpable. MUSCULOSKELETAL: Extremities without clubbing, cyanosis, or edema. No obvious deformities. NEUROLOGICAL: Awake and alert. No obvious cranial nerve deficits. Motor grossly within normal limits. Five out of 5 muscle strength in the arms and legs. Normal speech. PSYCHIATRIC: Appropriate mood and affect; insight and judgment normal. Psych Mental Status: other (cocaine abuse) Course Initial Documented Vital Signs Temperature 98.8 F 09/23/17 00:33 Pulse Rate 93 H 09/23/17 00:33 Respiratory Rate 20 09/23/17 00:33 Blood Pressure 157/68 H 09/23/17 00:33 Pulse Oximetry 96 09/23/17 00:33 Last Documented Vital Signs Temperature 97.8 F 09/24/17 12:00 Pulse Rate 76 09/24/17 12:00 Respiratory Rate 18 09/24/17 12:00 Blood Pressure 144/68 H 09/24/17 12:00 Pulse Oximetry 97 09/24/17 12:00 Medical Decision Making MDM Narrative Medical decision making narrative: medical treatment for cocaine induced CP trop 0.09 has been in with ,ild elevation of trop 0.05 in the past but he has nrl creatine so possible rate dependent ischemia from cocaine stimulation on beta receptors on heart or rate dependent ischemia or vasospasm admit tele Medical Screen Exam Complete: Yes Emergency Medical Condition: Yes Differential Diagnosis Differential Diagnosis: Includes gastritis GERD acute coronary syndrome Prinzmetal's vasospasm from cocaine versus cardiomyopathy versus pericarditis versus coagulopathy versus cardiac ischemia Lab Data Result diagrams: 09/24/17 06:15 09/24/17 06:15 Lab Results 09/23/17 09/23/17 09/23/17 Range/Units 00:38 00:38 00:38 WBC 7.4 (4.0-11.0) th/mm3 RBC 4.56 (4.50-5.90) mil/mm3 Hgb 13.0 (13.0-17.0) gm/dL Hct 39.2 (39.0-51.0) % MCV 85.9 (80.0-100.0) fL MCH 28.6 (27.0-34.0) pg MCHC 33.3 (32.0-36.0) % RDW 14.5 (11.6-17.2) % Plt Count 252 (150-450) th/mm3 MPV 7.6 (7.0-11.0) fL Neut % (Auto) 52.2 (16.0-70.0) % Lymph % (Auto) 33.9 (9.0-44.0) % Davis % (Auto) 11.2 H (0.0-8.0) % Eos % (Auto) 1.8 (0.0-4.0) % Baso % (Auto) 0.9 (0.0-2.0) % Neut # (Auto) 3.9 (1.8-7.7) th/mm3 Lymph # (Auto) 2.5 (1.0-4.8) th/mm3 Davis # (Auto) 0.8 (0.0-0.9) th/mm3 Eos # (Auto) 0.1 (0.0-0.4) th/mm3 Baso # (Auto) 0.1 (0.0-0.2) th/mm3 WBC Differential . Differential Comment Auto diff final PT 11.6 (9.8-11.6) sec INR 1.1 Ratio APTT 25.4 (24.3-30.1) sec Sodium 143 (136-145) meq/L Potassium 3.7 (3.5-5.1) meq/L Chloride 109 H (98-107) meq/L Carbon Dioxide 24.5 (21.0-32.0) meq/L Anion Gap 10 (5-15) meq/L BUN 9 (7-18) mg/dL Creatinine 1.10 (0.60-1.30) mg/dL Estimated GFR 83 L (>89) mL/min Random Glucose 99 (74-106) mg/dL Hemoglobin A1c (4.3-6.0) % Calcium 7.8 L (8.5-10.1) mg/dL Phosphorus (2.5-4.9) mg/dL Magnesium (1.5-2.5) mg/dL Total Bilirubin (0.2-1.0) mg/dL AST (15-37) U/L ALT (12-78) U/L Alkaline Phosphatase (45-117) U/L Total Creatine Kinase (39-308) U/L CK-MB (CK-2) (0.5-3.6) ng/mL CK-MB (CK-2) % (0.0-4.0) % Troponin I 0.09 H (0.02-0.05) ng/mL Total Protein (6.4-8.2) g/dL Albumin (3.4-5.0) g/dL Triglycerides (42-150) mg/dL Cholesterol (120-200) mg/dL LDL Cholesterol, Calc (0-99) mg/dL HDL Cholesterol (40.0-60.0) mg/dL Cholesterol/HDL Ratio Ratio TSH (0.358-3.740) uIU/mL Free T4 (0.76-1.46) ng/dL Hepatitis A IgM Ab (Nonreactive) Hep Bs Antigen (Nonreactive) Hep B Core IgM Ab (Nonreactive) Hep C IgG Ab (Nonreactive) 09/23/17 09/23/17 09/23/17 Range/Units 00:38 04:00 07:35 WBC (4.0-11.0) th/mm3 RBC (4.50-5.90) mil/mm3 Hgb (13.0-17.0) gm/dL Hct (39.0-51.0) % MCV (80.0-100.0) fL MCH (27.0-34.0) pg MCHC (32.0-36.0) % RDW (11.6-17.2) % Plt Count (150-450) th/mm3 MPV (7.0-11.0) fL Neut % (Auto) (16.0-70.0) % Lymph % (Auto) (9.0-44.0) % Davis % (Auto) (0.0-8.0) % Eos % (Auto) (0.0-4.0) % Baso % (Auto) (0.0-2.0) % Neut # (Auto) (1.8-7.7) th/mm3 Lymph # (Auto) (1.0-4.8) th/mm3 Davis # (Auto) (0.0-0.9) th/mm3 Eos # (Auto) (0.0-0.4) th/mm3 Baso # (Auto) (0.0-0.2) th/mm3 WBC Differential Differential Comment PT (9.8-11.6) sec INR Ratio APTT (24.3-30.1) sec Sodium (136-145) meq/L Potassium (3.5-5.1) meq/L Chloride (98-107) meq/L Carbon Dioxide (21.0-32.0) meq/L Anion Gap (5-15) meq/L BUN (7-18) mg/dL Creatinine (0.60-1.30) mg/dL Estimated GFR (>89) mL/min Random Glucose (74-106) mg/dL Hemoglobin A1c 7.1 H (4.3-6.0) % Calcium (8.5-10.1) mg/dL Phosphorus (2.5-4.9) mg/dL Magnesium (1.5-2.5) mg/dL Total Bilirubin (0.2-1.0) mg/dL AST (15-37) U/L ALT (12-78) U/L Alkaline Phosphatase (45-117) U/L Total Creatine Kinase 1244 H (39-308) U/L CK-MB (CK-2) 14.0 H (0.5-3.6) ng/mL CK-MB (CK-2) % 1.1 (0.0-4.0) % Troponin I 0.10 H 0.09 H (0.02-0.05) ng/mL Total Protein (6.4-8.2) g/dL Albumin (3.4-5.0) g/dL Triglycerides (42-150) mg/dL Cholesterol (120-200) mg/dL LDL Cholesterol, Calc (0-99) mg/dL HDL Cholesterol (40.0-60.0) mg/dL Cholesterol/HDL Ratio Ratio TSH (0.358-3.740) uIU/mL Free T4 (0.76-1.46) ng/dL Hepatitis A IgM Ab (Nonreactive) Hep Bs Antigen (Nonreactive) Hep B Core IgM Ab (Nonreactive) Hep C IgG Ab (Nonreactive) 09/23/17 09/23/17 09/23/17 Range/Units 12:35 12:35 12:35 WBC (4.0-11.0) th/mm3 RBC (4.50-5.90) mil/mm3 Hgb (13.0-17.0) gm/dL Hct (39.0-51.0) % MCV (80.0-100.0) fL MCH (27.0-34.0) pg MCHC (32.0-36.0) % RDW (11.6-17.2) % Plt Count (150-450) th/mm3 MPV (7.0-11.0) fL Neut % (Auto) (16.0-70.0) % Lymph % (Auto) (9.0-44.0) % Davis % (Auto) (0.0-8.0) % Eos % (Auto) (0.0-4.0) % Baso % (Auto) (0.0-2.0) % Neut # (Auto) (1.8-7.7) th/mm3 Lymph # (Auto) (1.0-4.8) th/mm3 Davis # (Auto) (0.0-0.9) th/mm3 Eos # (Auto) (0.0-0.4) th/mm3 Baso # (Auto) (0.0-0.2) th/mm3 WBC Differential Differential Comment PT (9.8-11.6) sec INR Ratio APTT (24.3-30.1) sec Sodium (136-145) meq/L Potassium (3.5-5.1) meq/L Chloride (98-107) meq/L Carbon Dioxide (21.0-32.0) meq/L Anion Gap (5-15) meq/L BUN (7-18) mg/dL Creatinine (0.60-1.30) mg/dL Estimated GFR (>89) mL/min Random Glucose (74-106) mg/dL Hemoglobin A1c 6.9 H (4.3-6.0) % Calcium (8.5-10.1) mg/dL Phosphorus (2.5-4.9) mg/dL Magnesium (1.5-2.5) mg/dL Total Bilirubin (0.2-1.0) mg/dL AST (15-37) U/L ALT (12-78) U/L Alkaline Phosphatase (45-117) U/L Total Creatine Kinase (39-308) U/L CK-MB (CK-2) (0.5-3.6) ng/mL CK-MB (CK-2) % (0.0-4.0) % Troponin I (0.02-0.05) ng/mL Total Protein (6.4-8.2) g/dL Albumin (3.4-5.0) g/dL Triglycerides (42-150) mg/dL Cholesterol (120-200) mg/dL LDL Cholesterol, Calc (0-99) mg/dL HDL Cholesterol (40.0-60.0) mg/dL Cholesterol/HDL Ratio Ratio TSH (0.358-3.740) uIU/mL Free T4 0.79 (0.76-1.46) ng/dL Hepatitis A IgM Ab Nonreactive (Nonreactive) Hep Bs Antigen Nonreactive (Nonreactive) Hep B Core IgM Ab Nonreactive (Nonreactive) Hep C IgG Ab Reactive H (Nonreactive) 09/23/17 09/23/17 09/23/17 Range/Units 12:35 12:35 12:35 WBC (4.0-11.0) th/mm3 RBC (4.50-5.90) mil/mm3 Hgb (13.0-17.0) gm/dL Hct (39.0-51.0) % MCV (80.0-100.0) fL MCH (27.0-34.0) pg MCHC (32.0-36.0) % RDW (11.6-17.2) % Plt Count (150-450) th/mm3 MPV (7.0-11.0) fL Neut % (Auto) (16.0-70.0) % Lymph % (Auto) (9.0-44.0) % Davis % (Auto) (0.0-8.0) % Eos % (Auto) (0.0-4.0) % Baso % (Auto) (0.0-2.0) % Neut # (Auto) (1.8-7.7) th/mm3 Lymph # (Auto) (1.0-4.8) th/mm3 Davis # (Auto) (0.0-0.9) th/mm3 Eos # (Auto) (0.0-0.4) th/mm3 Baso # (Auto) (0.0-0.2) th/mm3 WBC Differential Differential Comment PT (9.8-11.6) sec INR Ratio APTT (24.3-30.1) sec Sodium (136-145) meq/L Potassium (3.5-5.1) meq/L Chloride (98-107) meq/L Carbon Dioxide (21.0-32.0) meq/L Anion Gap (5-15) meq/L BUN (7-18) mg/dL Creatinine (0.60-1.30) mg/dL Estimated GFR (>89) mL/min Random Glucose (74-106) mg/dL Hemoglobin A1c (4.3-6.0) % Calcium (8.5-10.1) mg/dL Phosphorus 3.4 (2.5-4.9) mg/dL Magnesium (1.5-2.5) mg/dL Total Bilirubin (0.2-1.0) mg/dL AST (15-37) U/L ALT (12-78) U/L Alkaline Phosphatase (45-117) U/L Total Creatine Kinase (39-308) U/L CK-MB (CK-2) (0.5-3.6) ng/mL CK-MB (CK-2) % (0.0-4.0) % Troponin I (0.02-0.05) ng/mL Total Protein (6.4-8.2) g/dL Albumin (3.4-5.0) g/dL Triglycerides (42-150) mg/dL Cholesterol (120-200) mg/dL LDL Cholesterol, Calc (0-99) mg/dL HDL Cholesterol (40.0-60.0) mg/dL Cholesterol/HDL Ratio Ratio TSH 1.270 1.230 (0.358-3.740) uIU/mL Free T4 Cancelled 0.80 (0.76-1.46) ng/dL Hepatitis A IgM Ab (Nonreactive) Hep Bs Antigen (Nonreactive) Hep B Core IgM Ab (Nonreactive) Hep C IgG Ab (Nonreactive) 09/24/17 09/24/17 09/24/17 Range/Units 06:15 06:15 06:15 WBC 7.3 (4.0-11.0) th/mm3 RBC 5.18 (4.50-5.90) mil/mm3 Hgb 15.1 D (13.0-17.0) gm/dL Hct 45.3 (39.0-51.0) % MCV 87.4 (80.0-100.0) fL MCH 29.1 (27.0-34.0) pg MCHC 33.3 (32.0-36.0) % RDW 14.9 (11.6-17.2) % Plt Count 257 (150-450) th/mm3 MPV 7.8 (7.0-11.0) fL Neut % (Auto) 47.8 (16.0-70.0) % Lymph % (Auto) 38.2 (9.0-44.0) % Davis % (Auto) 10.5 H (0.0-8.0) % Eos % (Auto) 2.6 (0.0-4.0) % Baso % (Auto) 0.9 (0.0-2.0) % Neut # (Auto) 3.5 (1.8-7.7) th/mm3 Lymph # (Auto) 2.8 (1.0-4.8) th/mm3 Davis # (Auto) 0.8 (0.0-0.9) th/mm3 Eos # (Auto) 0.2 (0.0-0.4) th/mm3 Baso # (Auto) 0.1 (0.0-0.2) th/mm3 WBC Differential . Differential Comment Auto diff final PT 11.9 H (9.8-11.6) sec INR 1.2 Ratio APTT (24.3-30.1) sec Sodium 139 (136-145) meq/L Potassium 4.4 (3.5-5.1) meq/L Chloride 107 (98-107) meq/L Carbon Dioxide 23.6 (21.0-32.0) meq/L Anion Gap 8 (5-15) meq/L BUN 14 (7-18) mg/dL Creatinine 1.01 (0.60-1.30) mg/dL Estimated GFR Greater than 89 (>89) mL/min Random Glucose 91 (74-106) mg/dL Hemoglobin A1c (4.3-6.0) % Calcium 8.2 L (8.5-10.1) mg/dL Phosphorus 3.7 (2.5-4.9) mg/dL Magnesium 2.0 (1.5-2.5) mg/dL Total Bilirubin 0.6 (0.2-1.0) mg/dL AST 29 (15-37) U/L ALT 29 (12-78) U/L Alkaline Phosphatase 91 (45-117) U/L Total Creatine Kinase 774 H (39-308) U/L CK-MB (CK-2) 7.8 H (0.5-3.6) ng/mL CK-MB (CK-2) % 1.0 (0.0-4.0) % Troponin I 0.09 H (0.02-0.05) ng/mL Total Protein 7.0 (6.4-8.2) g/dL Albumin 3.0 L (3.4-5.0) g/dL Triglycerides 98 (42-150) mg/dL Cholesterol 177 (120-200) mg/dL LDL Cholesterol, Calc 108 H (0-99) mg/dL HDL Cholesterol 49.7 (40.0-60.0) mg/dL Cholesterol/HDL Ratio 3.56 Ratio TSH (0.358-3.740) uIU/mL Free T4 (0.76-1.46) ng/dL Hepatitis A IgM Ab (Nonreactive) Hep Bs Antigen (Nonreactive) Hep B Core IgM Ab (Nonreactive) Hep C IgG Ab (Nonreactive) Imaging Data Radiologist's impression: Chest X-Ray 09/23/17 00:36 CONCLUSION: No acute cardiopulmonary disease ECG Data Attestation: I personally reviewed and interpreted this ECG as follows: Discharge Plan Discharge Disposition Patient Disposition: 30 Still Patient Discharge Condition Condition: Good Discharge Order Discharge Orders: Discharge Order (Routine); Ordered 09/24/17 Ordered By: Kolton Acharya Discharge Details Anticipated Discharge Date: 09/24/17 Discharge Comment: DC TO HOME Physicians Team ED Provider: Jared Vallejo Primary Care Provider: [facility],Physician 's Attending Provider: Kolton Acharya Other Providers: [employer] Status ED Status: Left Department Discharge Information Discharge Date/Time: 09/23/17 12:08
--- NOTE | 2017-09-23 06:35 | P.HPIM ---
History of Present Illness Primary Care Physician: [facility] History of Present Illness: Mr. Pruett is a 61-year-old male. He has a history of cocaine abuse and associated chest pain. He also has a history of elevated troponin levels. Tonight he comes in secondary to chest pain. He has been abusing cocaine. Troponin levels are elevated. Slight upward trend is noted between the first and second troponin. He is not a candidate for the chest pain center with his elevated troponin. Ativan provided for anxiety and patient is resting comfortably when seen and not easily aroused. No further complaints of chest pain. - Diagnosis (1) Chest pain Review of Systems Constitutional: Denies chills, Denies fever(s), Denies weakness Eyes: Denies blind spots, Denies blurry vision, Denies change in vision, Denies double vision Ears, Nose, Mouth, and Throat: Denies abnormal hearing, Denies bleeding gums, Denies change in voice Cardiovascular: Reports chest pain, Reports chest pain at rest, Reports chest pain with activity Respiratory: Denies cough, Denies shortness of breath, Denies wheezing Gastrointestinal: Denies abdominal pain, Denies black, tarry stools, Denies bloating, Denies bright, red blood in stools Musculoskeletal: Denies abnormal walking, Denies back pain, Denies body aches Skin/Breast: Denies rash, Denies skin pain, Denies skin ulcer Neurologic: Denies abnormal hearing, Denies abnormal movements, Denies abnormal speech Psychiatric: Denies abnormal sleep pattern, Denies anxiety, Denies behavioral changes PMF - History History Provided By: [employer] / EMT - Medical History Medical History: Medical History (Last Reviewed 09/20/17 @ 22:43 by SAMIR Gonzalez) Anxiety Diabetes Heart block Insomnia Neuropathy - Tobacco History Second Hand Smoke Exposure: No Smoking Status: Heavy tobacco smoker Tobacco Type: Cigarettes - Alcohol History How Often Do You Have a Drink Containing Alcohol: Unable to Obtain - Substance Use History Substance History: Active Abuse - Travel History Recent Travel in the [place] Within the Last 8 Weeks: No Recent Travel Out of the Country Within the Last 8 Weeks: No Medications and Allergies Active Medications: Active Medications Al Hydroxide/Mg Hydroxide (Milk Of Magnesia Liq) 30 ml PO Q12H PRN PRN Reason: Mild Constipation Sodium Chloride (Ns Inj) 1,000 mls @ 75 mls/hr IV.CONT .[id number] [place] Ondansetron HCl (Zofran Inj) 4 mg IV.PUSH Q6H PRN PRN Reason: NAUSEA OR VOMITING Sodium Chloride (Ns Flush) 2 ml IV.FLUSH UNSCH PRN PRN Reason: FLUSH AFTER USING IV ACCESS Sodium Chloride (Ns Flush) 2 ml IV.FLUSH BID TERESA Sodium Chloride (Ns Flush) 2 ml IV.FLUSH PRN PRN PRN Reason: FLUSH AFTER USING IV ACCESS Allergies Allergy/AdvReac Type Severity Reaction Status Date / Time lisinopril AdvReac Intermediate COUGH Verified 09/20/17 18:49 Home Medications Medication Instructions Recorded Confirmed Type Unable to Obtain Home Meds 09/10/17 09/20/17 History Exam Vital signs: Vital Signs 09/23/17 00:33 Temperature 98.8 F Pulse Rate 93 H Respiratory Rate 20 Blood Pressure 157/68 H Pulse Oximetry 96 Intake & Output 09/22/17 09/22/17 09/23/17 06:59 18:59 06:59 Weight 81.647 kg Results - Labs CBC & Chem 7: 09/23/17 00:38 09/23/17 00:38 Labs: Short CBC 09/23/17 Range/Units 00:38 WBC 7.4 (4.0-11.0) th/mm3 Hgb 13.0 (13.0-17.0) gm/dL Hct 39.2 (39.0-51.0) % Plt Count 252 (150-450) th/mm3 BMP 09/23/17 00:38 Sodium 143 Potassium 3.7 Chloride 109 H Carbon Dioxide 24.5 BUN 9 Creatinine 1.10 Calcium 7.8 L Cardiac Enzymes 09/23/17 09/23/17 Range/Units 00:38 04:00 Troponin I 0.09 H 0.10 H (0.02-0.05) ng/mL - Imaging Impressions Chest X-Ray 09/23/17 00:36 CONCLUSION: No acute cardiopulmonary disease Caprini VTE Risk Assessment Caprini VTE Risk Assessment: No/Low Risk (score <= 1) Caprini Risk Assessment Model: Point Value = 1 Point Value = 2 Point Value = 3 Point Value = 5 Age 41-60 Minor surgery BMI > 25 kg/m2 Swollen legs Varicose veins or History of unexplained or recurrent spontaneous Oral contraceptives or hormone replacement Sepsis (< 1 month) Serious lung disease, including pneumonia (< 1 month) Abnormal pulmonary function Acute myocardial infarction Congestive heart failure (< 1 month) History of inflammatory bowel disease Medical patient at bed rest Age 61-74 Arthroscopic surgery Major open surgery (> 45 min) Laparoscopic surgery (> 45 min) Malignancy Confined to bed (> 72 hours) Immobilizing plaster cast Central venous access Age >= 75 History of VTE Family history of VTE Factor V Leiden Prothrombin [id number] Lupus anticoagulant Anticardiolipin antibodies Elevated serum homocysteine Heparin-induced thrombocytopenia Other congenital or acquired thrombophilia Stroke (< 1 month) Elective arthroplasty Hip, pelvis, or leg fracture Acute spinal cord injury (< 1 month) Prophylaxis Regimen: Total Risk Factor Score Risk Level Prophylaxis Regimen 0-1 Low Early ambulation 2 Moderate Order ONE of the following: *Sequential Compression Device (SCD) *Heparin 5000 units SQ BID 3-4 Higher Order ONE of the following medications: *Heparin 5000 units SQ TID *Enoxaparin/Lovenox 40 mg SQ daily (WT < 150 kg, CrCl > 30 mL/min) *Enoxaparin/Lovenox 30 mg SQ daily (WT < 150 kg, CrCl > 10-29 mL/min) *Enoxaparin/Lovenox 30 mg SQ BID (WT < 150 kg, CrCl > 30 mL/min) AND/OR *Sequential Compression Device (SCD) 5 or more Highest Order ONE of the following medications: *Heparin 5000 units SQ TID (Preferred with Epidurals) *Enoxaparin/Lovenox 40 mg SQ daily (WT < 150 kg, CrCl > 30 mL/min) *Enoxaparin/Lovenox 30 mg SQ daily (WT < 150 kg, CrCl > 10-29 mL/min) *Enoxaparin/Lovenox 30 mg SQ BID (WT < 150 kg, CrCl > 30 mL/min) AND *Sequential Compression Device (SCD) Assessment and Plan - Assessment (1) Chest pain Code(s): R07.9 - Chest pain, unspecified Status: Acute - Plan 61-year-old male admitted for chest pain related to cocaine Chest pain Cocaine Abuse Evaluate for ACS Follow cardiac enzymes Aspirin daily When necessary oxygen When necessary morphine for pain. When necessary nitroglycerin Follow on telemetry Avoid beta blockers Counseled to quit cocaine abuse General anxiety disorder As needed Xanax Diabetes mellitus type 2 Follow blood sugars Insulin sliding scale Diabetic diet DVT prophylaxis Heparin
[2017-09-23] MEDS ORDERED: ALPRAZolam 0.25 MG Tablet PO PRN (06:42)
[2017-09-23] MEDS: Sod Chloride 0.9% Inj 1,000 ML IV.CONT SCH ×2 (06:43→18:58)
[2017-09-23 08:29] LABS: Troponin I 0.09 ng/mL (0.02-0.05)
[2017-09-23 08:41] LABS: CKMB Percent 1.1 % (0.0-4.0)
--- NOTE | 2017-09-23 11:30 | ECG ---
Date Performed: 09/23/2017 Time Performed: 04:49:16 PTAGE: 61 years EKG: Sinus rhythm NORMAL ECG PREVIOUS TRACING : 09/23/2017 00.32 Since previous tracing, no significant change noted DOCTOR: Tre Mccloud Interpretating Date/Time 09/23/2017 11:28:19
--- NOTE | 2017-09-23 11:32 | ECG ---
Date Performed: 09/23/2017 Time Performed: 00:32:48 PTAGE: 61 years EKG: Sinus rhythm NORMAL ECG PREVIOUS TRACING : 09/20/2017 21.32 Since previous tracing, no significant change noted DOCTOR: Tre Mccloud Interpretating Date/Time 09/23/2017 11:29:37
[2017-09-23] MEDS: Heparin - SQ 10,000 UNITS/ML Vial SQ SCH ×2 (12:54→20:26)
[2017-09-23 13:26] LABS: Phosphorus 3.4 mg/dL (2.5-4.9)
[2017-09-23 13:34] LABS: Thyroid Stimulating Hormone 1.27 uIU/mL (0.358-3.740)
[2017-09-23 13:57] LABS: Hepatitits B Surface Antigen Nonreactive (Nonreactive)
--- NOTE | 2017-09-23 14:33 | P.PNIM ---
Subjective Interval history: Mr. Pruett is a 61-year-old male. He has a history of cocaine abuse and associated chest pain. He also has a history of elevated troponin levels. Tonight he comes in secondary to chest pain. He has been abusing cocaine. Troponin levels are elevated. Slight upward trend is noted between the first and second troponin. He is not a candidate for the chest pain center with his elevated troponin. Ativan provided for anxiety and patient is resting comfortably when seen and not easily aroused. No further complaints of chest pain. 8-15 NO NEW COMPLAINTS DW RN AND PT AND CM WILL GIVE A DIET WILL GIVE PRN CATAPRES AM LABS PLACE ON TELEMETRY "I NEED TO GET TO [place]" I INSTRUCTED HIM TO STOP DOING CRACK AND COCAINE AND HE COULD PROBABLY GET TO [place]. Physical Exam Vital signs: Vital Signs 09/23/17 00:33 09/23/17 07:42 09/23/17 12:04 Temperature 98.8 F Pulse Rate 93 H 71 Respiratory Rate 20 17 14 Blood Pressure 157/68 H 163/74 H Pulse Oximetry 96 95 09/23/17 12:46 09/23/17 14:21 Temperature 98.8 F 98.7 F Pulse Rate 78 75 Respiratory Rate 16 20 Blood Pressure 171/79 H 191/98 H Pulse Oximetry 99 98 Intake & Output 09/22/17 09/23/17 09/23/17 18:59 06:59 18:59 Output Total 1200 / 1200 Balance -1200 / -1200 Weight 81.647 kg Output: Urine 1200 / 1200 Narrative: GENERAL: Awake alert and oriented 3 talkative and cooperative SKIN: Warm and dry. HEAD: Atraumatic. Normocephalic. EYES: Pupils equal and round. No scleral icterus. No injection or drainage. EOMI ENT: No nasal bleeding or discharge. Mucous membranes pink and moist. NECK: Trachea midline. No JVD. CARDIOVASCULAR: Regular rate and rhythm. S1-S2 no S3 or S4 RESPIRATORY: No accessory muscle use. Clear to auscultation. Breath sounds equal bilaterally. GASTROINTESTINAL: Abdomen soft, non-tender, nondistended. Hepatic and splenic margins not palpable. MUSCULOSKELETAL: Extremities without clubbing, cyanosis, or edema. No obvious deformities. NEUROLOGICAL: Awake and alert. No obvious cranial nerve deficits. Motor grossly within normal limits. Five out of 5 muscle strength in the arms and legs. Normal speech. PSYCHIATRIC: Appropriate mood and affect; insight and judgment normal. Results - Labs CBC & Chem 7: 09/23/17 00:38 09/23/17 00:38 Laboratory Results - last 24 hr 09/23/17 09/23/17 09/23/17 00:38 00:38 00:38 WBC 7.4 RBC 4.56 Hgb 13.0 Hct 39.2 MCV 85.9 MCH 28.6 MCHC 33.3 RDW 14.5 Plt Count 252 MPV 7.6 Neut % (Auto) 52.2 Lymph % (Auto) 33.9 [place] % (Auto) 11.2 H Eos % (Auto) 1.8 Baso % (Auto) 0.9 Neut # (Auto) 3.9 Lymph # (Auto) 2.5 [place] # (Auto) 0.8 Eos # (Auto) 0.1 Baso # (Auto) 0.1 WBC Differential . Differential Comment Auto diff final PT 11.6 INR 1.1 APTT 25.4 Sodium 143 Potassium 3.7 Chloride 109 H Carbon Dioxide 24.5 Anion Gap 10 BUN 9 Creatinine 1.10 Estimated GFR 83 L Random Glucose 99 Calcium 7.8 L Phosphorus Total Creatine Kinase CK-MB (CK-2) CK-MB (CK-2) % Troponin I 0.09 H TSH Free T4 Hep Bs Antigen 09/23/17 09/23/17 09/23/17 04:00 07:35 12:35 WBC RBC Hgb Hct MCV MCH MCHC RDW Plt Count MPV Neut % (Auto) Lymph % (Auto) [place] % (Auto) Eos % (Auto) Baso % (Auto) Neut # (Auto) Lymph # (Auto) [place] # (Auto) Eos # (Auto) Baso # (Auto) WBC Differential Differential Comment PT INR APTT Sodium Potassium Chloride Carbon Dioxide Anion Gap BUN Creatinine Estimated GFR Random Glucose Calcium Phosphorus Total Creatine Kinase 1244 H CK-MB (CK-2) 14.0 H CK-MB (CK-2) % 1.1 Troponin I 0.10 H 0.09 H TSH Free T4 0.79 Hep Bs Antigen 09/23/17 09/23/17 12:35 12:35 WBC RBC Hgb Hct MCV MCH MCHC RDW Plt Count MPV Neut % (Auto) Lymph % (Auto) [place] % (Auto) Eos % (Auto) Baso % (Auto) Neut # (Auto) Lymph # (Auto) [place] # (Auto) Eos # (Auto) Baso # (Auto) WBC Differential Differential Comment PT INR APTT Sodium Potassium Chloride Carbon Dioxide Anion Gap BUN Creatinine Estimated GFR Random Glucose Calcium Phosphorus 3.4 Total Creatine Kinase CK-MB (CK-2) CK-MB (CK-2) % Troponin I TSH 1.270 Free T4 Hep Bs Antigen Nonreactive - Imaging Impressions Chest X-Ray 09/23/17 00:36 CONCLUSION: No acute cardiopulmonary disease - Procedures None Assessment and Plan - Assessment (1) Chest pain Code(s): R07.9 - Chest pain, unspecified Status: Acute - Plan 61-year-old male admitted for chest pain related to cocaine Chest pain Cocaine Abuse Evaluate for ACS Follow cardiac enzymes Aspirin daily When necessary oxygen When necessary morphine for pain. When necessary nitroglycerin Follow on telemetry Avoid beta blockers Counseled to quit cocaine abuse General anxiety disorder As needed Xanax Diabetes mellitus type 2 Follow blood sugars Insulin sliding scale Diabetic diet DVT prophylaxis Heparin Code Status: Full code Discussed Condition With: RN and patient and case management Discharge Planning: Hopefully discharge tomorrow if labs are stable
[2017-09-23] MEDS ORDERED: Naloxone Inj 0.4 MG/ML Vial IV.PUSH PRN (14:38)
[2017-09-23] MEDS ORDERED: Morphine Inj 4 MG/ML Vial IV.PUSH PRN ×2 (14:38)
[2017-09-23] MEDS: Famotidine 20 MG Tablet PO SCH ×2 (15:30→20:25)
[2017-09-23] MEDS: amLODIPine 5 MG Tablet PO SCH (15:30)
[2017-09-23 15:38] LABS: Hepatitis A IgM Antibody Nonreactive (Nonreactive)
[2017-09-23 16:35] LABS: Hemoglobin A1c 6.9 % (4.3-6.0)
[2017-09-23 19:38] LABS: Free T4 (Free Thyroxine) 0.8 ng/dL (0.76-1.46); Thyroid Stimulating Hormone 1.23 uIU/mL (0.358-3.740)
[2017-09-24 07:28] LABS: Baso # (Auto) 0.1 th/mm3 (0.0-0.2); Baso % (Auto) 0.9 % (0.0-2.0); Eos # (Auto) 0.2 th/mm3 (0.0-0.4); Eos % (Auto) 2.6 % (0.0-4.0); Hematocrit 45.3 % (39.0-51.0); Hemoglobin 15.1 gm/dL (13.0-17.0); Lymph # (Auto) 2.8 th/mm3 (1.0-4.8); Lymph % (Auto) 38.2 % (9.0-44.0); Mean Corpuscular HGB Conc 33.3 % (32.0-36.0); Mean Corpuscular Hemoglobin 29.1 pg (27.0-34.0); Mean Corpuscular Volume 87.4 fL (80.0-100.0); Mean Platelet Volume 7.8 fL (7.0-11.0); Mono # (Auto) 0.8 th/mm3 (0.0-0.9); Mono % (Auto) 10.5 % (0.0-8.0); Neut # (Auto) 3.5 th/mm3 (1.8-7.7); Neut % (Auto) 47.8 % (16.0-70.0); Platelet Count 257 th/mm3 (150-450); Red Blood Count 5.18 mil/mm3 (4.50-5.90); Red Cell Distribution Width 14.9 % (11.6-17.2); White Blood Count 7.3 th/mm3 (4.0-11.0)
[2017-09-24 07:32] LABS: INR 1.2 Ratio; Prothrombin Time 11.9 sec (9.8-11.6)
[2017-09-24 07:58] LABS: Anion Gap 8 meq/L (5-15); Aspartate Aminotransferase 29 U/L (15-37); Blood Urea Nitrogen 14 mg/dL (7-18); Calcium 8.2 mg/dL (8.5-10.1); Carbon Dioxide 23.6 meq/L (21.0-32.0); Chloride 107 meq/L (98-107); Cholesterol 177 mg/dL (120-200); Glomerular Filtration Rate Greater Than 89 mL/min (>89); Glucose,Random 91 mg/dL (74-106); Potassium 4.4 meq/L (3.5-5.1); Sodium 139 meq/L (136-145); Triglycerides 98 mg/dL (42-150)
[2017-09-24 08:02] LABS: Alanine Aminotransferase 29 U/L (12-78); Alkaline Phosphatase 91 U/L (45-117); Chol/HDL Ratio 3.56 Ratio; Creatine Kinase 774 U/L (39-308); HDL Cholesterol 49.7 mg/dL (40.0-60.0); LDL Cholesterol,Calculated 108 mg/dL (0-99); Phosphorus 3.7 mg/dL (2.5-4.9); Troponin I 0.09 ng/mL (0.02-0.05)
[2017-09-24 08:14] LABS: Creatine Kinase MB 7.8 ng/mL (0.5-3.6)
[2017-09-24] MEDS: Sod Chloride 0.9% Inj 1,000 ML IV.CONT SCH (11:23)
[2017-09-24] MEDS: Famotidine 20 MG Tablet PO SCH (11:24)
[2017-09-24] MEDS: Heparin - SQ 10,000 UNITS/ML Vial SQ SCH (11:24)
[2017-09-24] MEDS: amLODIPine 5 MG Tablet PO SCH (11:25)
[2017-09-24 12:04] LABS: Hemoglobin A1c 7.1 % (4.3-6.0)
--- NOTE | 2017-09-24 12:58 | P.PNIM ---
Subjective Interval history: Mr. Pruett is a 61-year-old male. He has a history of cocaine abuse and associated chest pain. He also has a history of elevated troponin levels. Tonight he comes in secondary to chest pain. He has been abusing cocaine. Troponin levels are elevated. Slight upward trend is noted between the first and second troponin. He is not a candidate for the chest pain center with his elevated troponin. Ativan provided for anxiety and patient is resting comfortably when seen and not easily aroused. No further complaints of chest pain. 8-15 NO NEW COMPLAINTS DW RN AND PT AND CM WILL GIVE A DIET WILL GIVE PRN CATAPRES AM LABS PLACE ON TELEMETRY "I NEED TO GET TO [place]" I INSTRUCTED HIM TO STOP DOING CRACK AND COCAINE AND HE COULD PROBABLY GET TO [place]. 9-16 DC TO HOME TODAY NO CRACK OR COCAINE NO COMPLAINTS NO CHEST PAIN NO SOB RESTING COMFORTABLY IN BED DC TO HOME STOP COCAINE AND CRACK AND OTHER DRUGS Physical Exam Vital signs: Vital Signs 09/23/17 14:21 09/23/17 16:00 09/23/17 19:06 Temperature 98.7 F 98.2 F 98.9 F Pulse Rate 75 80 83 Respiratory Rate 20 18 18 Blood Pressure 191/98 H 148/70 H 160/77 H Pulse Oximetry 98 95 96 09/23/17 20:00 09/24/17 00:00 09/24/17 06:14 Temperature 98.3 F 97.3 F L Pulse Rate 78 77 73 Respiratory Rate 20 20 Blood Pressure 172/79 H 194/100 H Pulse Oximetry 98 97 09/24/17 08:00 09/24/17 12:00 Temperature 97.8 F 97.8 F Pulse Rate 78 76 Respiratory Rate 18 18 Blood Pressure 158/74 H 144/68 H Pulse Oximetry 96 97 Intake & Output 09/23/17 09/24/17 09/24/17 18:59 06:59 18:59 Intake Total 1800 / 1800 1000 / 1000 Output Total 1800 / 1800 1300 / 1300 Balance 0 / 0 -1300 / -1300 1000 / 1000 Intake: IV 1000 / 1000 1000 / 1000 NS Inj 1,000 ML @ 75 mls/hr IV. 1000 / 1000 1000 / 1000 CONT .[id number] TERESA Rx#:[id number] Oral 800 / 800 Output: Urine 1800 / 1800 1300 / 1300 Other: Post Void Residual 600 Narrative: GENERAL: Awake alert and oriented 3 talkative and cooperative SKIN: Warm and dry. HEAD: Atraumatic. Normocephalic. EYES: Pupils equal and round. No scleral icterus. No injection or drainage. EOMI ENT: No nasal bleeding or discharge. Mucous membranes pink and moist. NECK: Trachea midline. No JVD. CARDIOVASCULAR: Regular rate and rhythm. S1-S2 no S3 or S4 RESPIRATORY: No accessory muscle use. Clear to auscultation. Breath sounds equal bilaterally. GASTROINTESTINAL: Abdomen soft, non-tender, nondistended. Hepatic and splenic margins not palpable. MUSCULOSKELETAL: Extremities without clubbing, cyanosis, or edema. No obvious deformities. NEUROLOGICAL: Awake and alert. No obvious cranial nerve deficits. Motor grossly within normal limits. Five out of 5 muscle strength in the arms and legs. Normal speech. PSYCHIATRIC: Appropriate mood and affect; insight and judgment normal. Results - Labs CBC & Chem 7: 09/24/17 06:15 09/24/17 06:15 Laboratory Results - last 24 hr 09/23/17 09/23/17 09/23/17 00:38 12:35 12:35 WBC RBC Hgb Hct MCV MCH MCHC RDW Plt Count MPV Neut % (Auto) Lymph % (Auto) [place] % (Auto) Eos % (Auto) Baso % (Auto) Neut # (Auto) Lymph # (Auto) [place] # (Auto) Eos # (Auto) Baso # (Auto) WBC Differential Differential Comment PT INR Sodium Potassium Chloride Carbon Dioxide Anion Gap BUN Creatinine Estimated GFR Random Glucose Hemoglobin A1c 7.1 H 6.9 H Calcium Phosphorus Magnesium Total Bilirubin AST ALT Alkaline Phosphatase Total Creatine Kinase CK-MB (CK-2) CK-MB (CK-2) % Troponin I Total Protein Albumin Triglycerides Cholesterol LDL Cholesterol, Calc HDL Cholesterol Cholesterol/HDL Ratio TSH Free T4 0.79 Hepatitis A IgM Ab Hep Bs Antigen Hep B Core IgM Ab Hep C IgG Ab 09/23/17 09/23/17 09/23/17 12:35 12:35 12:35 WBC RBC Hgb Hct MCV MCH MCHC RDW Plt Count MPV Neut % (Auto) Lymph % (Auto) [place] % (Auto) Eos % (Auto) Baso % (Auto) Neut # (Auto) Lymph # (Auto) [place] # (Auto) Eos # (Auto) Baso # (Auto) WBC Differential Differential Comment PT INR Sodium Potassium Chloride Carbon Dioxide Anion Gap BUN Creatinine Estimated GFR Random Glucose Hemoglobin A1c Calcium Phosphorus 3.4 Magnesium Total Bilirubin AST ALT Alkaline Phosphatase Total Creatine Kinase CK-MB (CK-2) CK-MB (CK-2) % Troponin I Total Protein Albumin Triglycerides Cholesterol LDL Cholesterol, Calc HDL Cholesterol Cholesterol/HDL Ratio TSH 1.270 Free T4 Cancelled Hepatitis A IgM Ab Nonreactive Hep Bs Antigen Nonreactive Hep B Core IgM Ab Nonreactive Hep C IgG Ab Reactive H 09/23/17 09/24/17 09/24/17 12:35 06:15 06:15 WBC 7.3 RBC 5.18 Hgb 15.1 D Hct 45.3 MCV 87.4 MCH 29.1 MCHC 33.3 RDW 14.9 Plt Count 257 MPV 7.8 Neut % (Auto) 47.8 Lymph % (Auto) 38.2 [place] % (Auto) 10.5 H Eos % (Auto) 2.6 Baso % (Auto) 0.9 Neut # (Auto) 3.5 Lymph # (Auto) 2.8 [place] # (Auto) 0.8 Eos # (Auto) 0.2 Baso # (Auto) 0.1 WBC Differential . Differential Comment Auto diff final PT 11.9 H INR 1.2 Sodium Potassium Chloride Carbon Dioxide Anion Gap BUN Creatinine Estimated GFR Random Glucose Hemoglobin A1c Calcium Phosphorus Magnesium Total Bilirubin AST ALT Alkaline Phosphatase Total Creatine Kinase CK-MB (CK-2) CK-MB (CK-2) % Troponin I Total Protein Albumin Triglycerides Cholesterol LDL Cholesterol, Calc HDL Cholesterol Cholesterol/HDL Ratio TSH 1.230 Free T4 0.80 Hepatitis A IgM Ab Hep Bs Antigen Hep B Core IgM Ab Hep C IgG Ab 09/24/17 06:15 WBC RBC Hgb Hct MCV MCH MCHC RDW Plt Count MPV Neut % (Auto) Lymph % (Auto) [place] % (Auto) Eos % (Auto) Baso % (Auto) Neut # (Auto) Lymph # (Auto) [place] # (Auto) Eos # (Auto) Baso # (Auto) WBC Differential Differential Comment PT INR Sodium 139 Potassium 4.4 Chloride 107 Carbon Dioxide 23.6 Anion Gap 8 BUN 14 Creatinine 1.01 Estimated GFR Greater than 89 Random Glucose 91 Hemoglobin A1c Calcium 8.2 L Phosphorus 3.7 Magnesium 2.0 Total Bilirubin 0.6 AST 29 ALT 29 Alkaline Phosphatase 91 Total Creatine Kinase 774 H CK-MB (CK-2) 7.8 H CK-MB (CK-2) % 1.0 Troponin I 0.09 H Total Protein 7.0 Albumin 3.0 L Triglycerides 98 Cholesterol 177 LDL Cholesterol, Calc 108 H HDL Cholesterol 49.7 Cholesterol/HDL Ratio 3.56 TSH Free T4 Hepatitis A IgM Ab Hep Bs Antigen Hep B Core IgM Ab Hep C IgG Ab - Imaging Chest X-Ray 09/23/17 00:36 CONCLUSION: No acute cardiopulmonary disease - Procedures None Assessment and Plan - Assessment (1) Chest pain Code(s): R07.9 - Chest pain, unspecified Status: Acute - Plan 61-year-old male admitted for chest pain related to cocaine Chest pain Cocaine Abuse Evaluate for ACS Follow cardiac enzymes Aspirin daily When necessary oxygen When necessary morphine for pain. When necessary nitroglycerin Follow on telemetry Avoid beta blockers Counseled to quit cocaine abuse General anxiety disorder As needed Xanax Diabetes mellitus type 2 Follow blood sugars Insulin sliding scale Diabetic diet DC TO HOME TODAY STOP COCAINE AND CRACK AND ANY OTHER ILLEGAL DRUGS DVT prophylaxis Heparin Code Status: FULL CODE Discussed Condition With: RN AND CM AND PT Discharge Planning: DC TO HOME
--- NOTE | 2017-09-24 13:03 | P.DS ---
Date of admission: 09/23/17 04:30 Primary care physician: [facility] Attending physician on discharge: Kolton Acharya Anticipated date of discharge: 09/24/17 Brief History from admission: Mr. Pruett is a 61-year-old male. He has a history of cocaine abuse and associated chest pain. He also has a history of elevated troponin levels. Tonight he comes in secondary to chest pain. He has been abusing cocaine. Troponin levels are elevated. Slight upward trend is noted between the first and second troponin. He is not a candidate for the chest pain center with his elevated troponin. Ativan provided for anxiety and patient is resting comfortably when seen and not easily aroused. No further complaints of chest pain. DS: Diagnosis - Discharge Diagnosis (1) Chest pain Status: Acute (2) Cocaine abuse Status: Chronic (3) Crack cocaine use Status: Chronic (4) Noncompliance Status: Chronic DS: Medications - Discharge Medications Prescriptions: amlodipine [Norvasc] 5 mg PO DAILY #30 tab aspirin 325 mg PO DAILY #30 tab famotidine 10 mg PO BID #60 tab nicotine 1 patch TRANSDERMAL DAILY #30 ea DS: Summary Hospital Course: Mr. Pruett is a 61-year-old male. He has a history of cocaine abuse and associated chest pain. He also has a history of elevated troponin levels. Tonight he comes in secondary to chest pain. He has been abusing cocaine. Troponin levels are elevated. Slight upward trend is noted between the first and second troponin. He is not a candidate for the chest pain center with his elevated troponin. Ativan provided for anxiety and patient is resting comfortably when seen and not easily aroused. No further complaints of chest pain. 8-15 NO NEW COMPLAINTS DW RN AND PT AND CM WILL GIVE A DIET WILL GIVE PRN CATAPRES AM LABS PLACE ON TELEMETRY "I NEED TO GET TO [place]" I INSTRUCTED HIM TO STOP DOING CRACK AND COCAINE AND HE COULD PROBABLY GET TO [place]. 9-16 DC TO HOME TODAY NO CRACK OR COCAINE NO COMPLAINTS NO CHEST PAIN NO SOB RESTING COMFORTABLY IN BED DC TO HOME STOP COCAINE AND CRACK AND OTHER DRUGS - Time Spent with Patient Total time spent providing and/or coordinating discharge services: Less than 30 minutes - Quality: VTE Deep Vein Thrombosis/Pulmonary Embolism Present on Admission: Yes Exam Vital signs: Vital Signs 09/23/17 14:21 09/23/17 16:00 09/23/17 19:06 Temperature 98.7 F 98.2 F 98.9 F Pulse Rate 75 80 83 Respiratory Rate 20 18 18 Blood Pressure 191/98 H 148/70 H 160/77 H Pulse Oximetry 98 95 96 09/23/17 20:00 09/24/17 00:00 09/24/17 06:14 Temperature 98.3 F 97.3 F L Pulse Rate 78 77 73 Respiratory Rate 20 20 Blood Pressure 172/79 H 194/100 H Pulse Oximetry 98 97 09/24/17 08:00 09/24/17 12:00 Temperature 97.8 F 97.8 F Pulse Rate 78 76 Respiratory Rate 18 18 Blood Pressure 158/74 H 144/68 H Pulse Oximetry 96 97 Intake & Output 09/23/17 09/24/17 09/24/17 18:59 06:59 18:59 Intake Total 1800 / 1800 1000 / 1000 Output Total 1800 / 1800 1300 / 1300 Balance 0 / 0 -1300 / -1300 1000 / 1000 Intake: IV 1000 / 1000 1000 / 1000 NS Inj 1,000 ML @ 75 mls/hr IV. 1000 / 1000 1000 / 1000 CONT .[id number] [facility] Rx#:[id number] Oral 800 / 800 Output: Urine 1800 / 1800 1300 / 1300 Other: Post Void Residual 600 Narrative: GENERAL: Awake alert and oriented 3 talkative and cooperative SKIN: Warm and dry. HEAD: Atraumatic. Normocephalic. EYES: Pupils equal and round. No scleral icterus. No injection or drainage. EOMI ENT: No nasal bleeding or discharge. Mucous membranes pink and moist. NECK: Trachea midline. No JVD. CARDIOVASCULAR: Regular rate and rhythm. S1-S2 no S3 or S4 RESPIRATORY: No accessory muscle use. Clear to auscultation. Breath sounds equal bilaterally. GASTROINTESTINAL: Abdomen soft, non-tender, nondistended. Hepatic and splenic margins not palpable. MUSCULOSKELETAL: Extremities without clubbing, cyanosis, or edema. No obvious deformities. NEUROLOGICAL: Awake and alert. No obvious cranial nerve deficits. Motor grossly within normal limits. Five out of 5 muscle strength in the arms and legs. Normal speech. PSYCHIATRIC: Appropriate mood and affect; insight and judgment normal. Results Procedures completed during hospitalization: None Completed studies during hospitalization: Chest X-Ray 09/23/17 00:36 CONCLUSION: No acute cardiopulmonary disease Labs on day of discharge: Labs from last 24 hours 09/24/17 09/24/17 09/24/17 06:15 06:15 06:15 WBC 7.3 RBC 5.18 Hgb 15.1 D Hct 45.3 MCV 87.4 MCH 29.1 MCHC 33.3 RDW 14.9 Plt Count 257 MPV 7.8 Neut % (Auto) 47.8 Lymph % (Auto) 38.2 [place] % (Auto) 10.5 H Eos % (Auto) 2.6 Baso % (Auto) 0.9 Neut # (Auto) 3.5 Lymph # (Auto) 2.8 [place] # (Auto) 0.8 Eos # (Auto) 0.2 Baso # (Auto) 0.1 WBC Differential . Differential Comment Auto diff final PT 11.9 H INR 1.2 Sodium 139 Potassium 4.4 Chloride 107 Carbon Dioxide 23.6 Anion Gap 8 BUN 14 Creatinine 1.01 Estimated GFR Greater than 89 Random Glucose 91 Hemoglobin A1c Calcium 8.2 L Phosphorus 3.7 Magnesium 2.0 Total Bilirubin 0.6 AST 29 ALT 29 Alkaline Phosphatase 91 Total Creatine Kinase 774 H CK-MB (CK-2) 7.8 H CK-MB (CK-2) % 1.0 Troponin I 0.09 H Total Protein 7.0 Albumin 3.0 L Triglycerides 98 Cholesterol 177 LDL Cholesterol, Calc 108 H HDL Cholesterol 49.7 Cholesterol/HDL Ratio 3.56 TSH Free T4 Hepatitis A IgM Ab Hep Bs Antigen Hep B Core IgM Ab Hep C IgG Ab 09/23/17 09/23/17 09/23/17 12:35 12:35 12:35 WBC RBC Hgb Hct MCV MCH MCHC RDW Plt Count MPV Neut % (Auto) Lymph % (Auto) [place] % (Auto) Eos % (Auto) Baso % (Auto) Neut # (Auto) Lymph # (Auto) [place] # (Auto) Eos # (Auto) Baso # (Auto) WBC Differential Differential Comment PT INR Sodium Potassium Chloride Carbon Dioxide Anion Gap BUN Creatinine Estimated GFR Random Glucose Hemoglobin A1c Calcium Phosphorus 3.4 Magnesium Total Bilirubin AST ALT Alkaline Phosphatase Total Creatine Kinase CK-MB (CK-2) CK-MB (CK-2) % Troponin I Total Protein Albumin Triglycerides Cholesterol LDL Cholesterol, Calc HDL Cholesterol Cholesterol/HDL Ratio TSH 1.230 1.270 Free T4 0.80 Cancelled Hepatitis A IgM Ab Hep Bs Antigen Hep B Core IgM Ab Hep C IgG Ab 09/23/17 09/23/17 09/23/17 12:35 12:35 12:35 WBC RBC Hgb Hct MCV MCH MCHC RDW Plt Count MPV Neut % (Auto) Lymph % (Auto) [place] % (Auto) Eos % (Auto) Baso % (Auto) Neut # (Auto) Lymph # (Auto) [place] # (Auto) Eos # (Auto) Baso # (Auto) WBC Differential Differential Comment PT INR Sodium Potassium Chloride Carbon Dioxide Anion Gap BUN Creatinine Estimated GFR Random Glucose Hemoglobin A1c 6.9 H Calcium Phosphorus Magnesium Total Bilirubin AST ALT Alkaline Phosphatase Total Creatine Kinase CK-MB (CK-2) CK-MB (CK-2) % Troponin I Total Protein Albumin Triglycerides Cholesterol LDL Cholesterol, Calc HDL Cholesterol Cholesterol/HDL Ratio TSH Free T4 0.79 Hepatitis A IgM Ab Nonreactive Hep Bs Antigen Nonreactive Hep B Core IgM Ab Nonreactive Hep C IgG Ab Reactive H 09/23/17 00:38 WBC RBC Hgb Hct MCV MCH MCHC RDW Plt Count MPV Neut % (Auto) Lymph % (Auto) [place] % (Auto) Eos % (Auto) Baso % (Auto) Neut # (Auto) Lymph # (Auto) [place] # (Auto) Eos # (Auto) Baso # (Auto) WBC Differential Differential Comment PT INR Sodium Potassium Chloride Carbon Dioxide Anion Gap BUN Creatinine Estimated GFR Random Glucose Hemoglobin A1c 7.1 H Calcium Phosphorus Magnesium Total Bilirubin AST ALT Alkaline Phosphatase Total Creatine Kinase CK-MB (CK-2) CK-MB (CK-2) % Troponin I Total Protein Albumin Triglycerides Cholesterol LDL Cholesterol, Calc HDL Cholesterol Cholesterol/HDL Ratio TSH Free T4 Hepatitis A IgM Ab Hep Bs Antigen Hep B Core IgM Ab Hep C IgG Ab - Impressions ITS Impressions Chest X-Ray 09/23/17 00:36 CONCLUSION: No acute cardiopulmonary disease Discharge Plan - Discharge Disposition Patient Disposition: Discharge Home - Discharge Condition Condition: Good - Discharge Order Discharge Orders: Discharge Order (Routine); Ordered 09/24/17 Ordered By: Kolton Acharya - Discharge Details Anticipated Discharge Date: 09/24/17 Discharge Comment: DC TO HOME - Physicians Team Primary Care Provider: [facility] Attending Provider: Kolton Acharya Other Providers: [employer]
[2017-09-24] MEDS ORDERED: Aspirin 325 MG Tablet PO SCH (14:36)
--- NOTE | 2017-09-24 16:54 | ECHRPT ---
Indication: HHD CONCLUSIONS Normal left ventricular size. Mild concentric left ventricular hypertrophy. The left ventricular systolic function is normal with an estimated ejection fraction of 55%. Mitral annular calcification is present. Trace mitral valve regurgitation. Trace aortic valve regurgitation. The estimated pulmonary arterial pressure is 14 mmHg. BP: / HR: Rhythm: Technical Quality: FINDINGS LEFT VENTRICLE Normal left ventricular size. Mild concentric left ventricular hypertrophy. The left ventricular systolic function is normal with an estimated ejection fraction of 55%. RIGHT VENTRICLE Normal right ventricular size and systolic function. LEFT ATRIUM The left atrial size is normal. RIGHT ATRIUM The right atrial size is normal. ATRIAL SEPTUM Normal atrial septal thickness without atrial level shunting by limited color doppler interrogation. AORTA The aortic root and proximal ascending aorta are normal in size on limited imaging. MITRAL VALVE Mitral annular calcification is present. Trace mitral valve regurgitation. AORTIC VALVE Trace aortic valve regurgitation. TRICUSPID VALVE The estimated pulmonary arterial pressure is 14 mmHg. PULMONARY VALVE The pulmonary valve is not well visualized. VESSELS The inferior vena cava is normal in size. PERICARDIUM No pericardial effusion. Gely Goodman MD, FACC (Electronically Signed) Final Date:24 September 2017 16:53
== END 2017-09-24 18:42 | disposition home or self-care (01) ==
LOC: NEPHCDU 00:27 → NEPE 00:27 → NEDA 00:27 → NEPHCDU 12:43
PROVIDERS: ADMIT Hospitalist; ATTEND Hospitalist

== ENCOUNTER 2017-10-13 04:25 | Observation (INO) ==
--- NOTE | 2017-10-13 05:05 | ED ---
HPI General Chief complaint: Chest Pain Stated complaint: Chest Pain/Evac Time Seen by Provider: 10/13/17 04:37 Source: patient and EMS Mode of arrival: EMS Limitations: altered mental status (related to intoxication) History of Present Illness HPI narrative: The patient is a 61 year old male who presents to the [facility] emergency department with a history of chest pain and headache that he reports began at 7:30 AM yesterday and constant and worsening since the onset. The patient reports that the chest pain is in the center of his chest and is a thumping sensation. The patient reports having associated shortness of breath. The patient intermittently falls asleep during the evaluation, therefore the patient's history is limited. He reports that he has been drinking alcohol this evening. He reports drinking a significant amount tonight. He reports that he normally drinks 4 pack/day. The patient additionally reports that he uses crack cocaine, however he cannot recall when he last used this. The patient is brought in by ambulance services. The patient was provided aspirin 324 mg p.o. x1 prior to arrival. Ambulance services reports that the patient went up to a safety instruction police officer and complained of chest pain when the safety instruction police officer was coming up to him to place him under arrest for trespassing. Related Data Home Medications Medication Instructions Recorded Confirmed insulin NPH and regular human 1 unit SUB-Q DAILY 10/13/17 10/13/17 [Novolin 70/30 U-100 Insulin] Previous Rx's Medication Instructions Recorded amlodipine [Norvasc] 5 mg PO DAILY #30 tab 09/24/17 aspirin 325 mg PO DAILY #30 tab 09/24/17 famotidine 10 mg PO BID #60 tab 09/24/17 atorvastatin 20 mg PO HS #30 tab 10/13/17 nitroglycerin [Nitrostat] 0.4 mg SUBLINGUAL Q5M PRN #10 tab 10/13/17 Allergies Allergy/AdvReac Type Severity Reaction Status Date / Time lisinopril AdvReac Intermediate COUGH Verified 10/13/17 04:38 Review of Systems Constitutional Denies fever(s) Eyes Denies change in vision ENT Denies headache(s) and Denies nasal congestion Cardiovascular Reports chest pain Respiratory Reports dyspnea Gastrointestinal Denies abdominal pain, Reports diarrhea (The patient reports having chronic diarrhea, he is unable to specify exactly how long it has been going on.), Denies nausea and Denies vomiting Genitourinary Denies difficulty urinating Musculoskeletal Denies myalgias Integumentary/Breasts Denies rash Neurologic Denies headache(s) Psychiatric Denies depression, Denies homicidal ideation, Denies suicidal ideation and Reports other Endocrine Denies polyuria Hematologic/Lymphatic Denies easy bruising [facility] Medical History Medical History Drug abuse (Acute) ETOH abuse (Acute) Depression (emotion) (Acute) Hypercholesteremia (Acute) Hepatitis C (Acute) Schizophrenia (Acute) HTN (hypertension) (Acute) GERD (gastroesophageal reflux disease) (Acute) Heart block (Acute) Neuropathy (Acute) Anxiety (Acute) Insomnia (Acute) Diabetes (Acute) Surgical History Surgical History H/O hand surgery (Acute) Family History Family History Other Heart disease Social History Social History Substance History: Active Abuse Second Hand Smoke Exposure: No Smoking Status: Heavy tobacco smoker Tobacco Type: Cigarettes Packs Per Day: 1 Cigarettes Per Day: 20.0 How Often Do You Have a Drink Containing Alcohol: 4 or more times a week Recent Travel in [facility] within the Last 8 Weeks: No Recent Out of Country Travel within the Last 8 Weeks: No Immunization History Tetanus Immunization: Unsure Hx Influenza Vaccine This Season: No Exam Const General: no acute distress, well developed and intoxicated appearing Nutritional Appearance: well nourished Orientation: oriented to person, oriented to place and other (Intermittently falling asleep on exam.) [facility] Head: normocephalic and atraumatic Nose: no nasal discharge and no epistaxis Mouth: moist mucous membranes Eyes Sclera: normal sclerae Pupils: PERRL Neck Neck: no meningeal signs, trachea midline and no JVD Resp Effort & Inspection: no use of accessory muscles Auscultation: clear to auscultation bilaterally Cardio Rate: regular rate Rhythm: regular rhythm Heart Sounds: no murmurs GI Inspection: non-distended Palpation: soft, no hepatosplenomegaly and nontender Auscultation: normal bowel sounds Back/Spine/Pelvis Back: no CVA tenderness Skin General: dry skin (warm) Neuro General: alert, awake and oriented x3 Cranial Nerves: other (Grossly nonfocal.) Speech: speech normal Motor: no movement abnormalities noted Extrem General: normal to inspection (No calf tenderness on palpation. 2 plus pulses all 4 ext.), no clubbing, no cyanosis and no edema Psych Mood: congruent mood Affect: normal affect Judgment: judgment good Course Reevaluation(s) Reevaluation #1: On reexamination, the patient was resting comfortably. Consultations Consultation #1: The patient's case including history, pertinent physical examination findings, and laboratory studies were discussed with Sonia, the REINA for [facility] It was agreed that the patient would be admitted to the hospitalist service. Initial Documented Vital Signs Temperature 98.2 F 10/13/17 04:35 Pulse Rate 84 10/13/17 04:35 Respiratory Rate 16 10/13/17 04:35 Blood Pressure 135/83 10/13/17 04:35 Pulse Oximetry 96 10/13/17 04:35 Last Documented Vital Signs Temperature 97.8 F 10/13/17 11:38 Pulse Rate 84 10/13/17 11:38 Respiratory Rate 18 10/13/17 11:38 Blood Pressure 159/88 H 10/13/17 11:38 Pulse Oximetry 100 10/13/17 11:38 Medical Decision Making MDM Narrative Medical decision making narrative: During the course of the patient's emergency department visit, the patient's history, examination, and differential diagnosis were reviewed with the patient. The patient was placed on a phototypesetting equipment monitor with oximetry and frequent blood pressure monitoring. The patient had IV access obtained and blood work sent for analysis. A diagnostic evaluation was started regarding the patient's chest pain. The patient has risk factors including a reported history of coronary artery disease, cocaine use, tobacco use, hypertension, and diabetes mellitus. Review of the electronic medical record reveals that the patient was admitted with elevated troponins recently. The patient last had a cardiac catheterization done March 17, 2017 which showed 50% ostial stenosis at the trifurcation of the ramus intermedius branch. The patient also had mild disease luminal irregularities noted in the right coronary artery. At that time Dr. cardoza recommended medical management with aspirin, statin therapy, isosorbide. The patient was initially provided aspirin 324 mg prior to arrival by ambulance services. The patient was given nitroglycerin sublingual in the emergency department, nitroglycerin 1 inch to the chest wall was applied. Evaluation is remarkable for an elevated troponin at 0.06, CPK 893 with a normal MB percent of 1.4. Given the patient's history of coronary artery disease on cardiac catheterization in February of this year, the patient will be admitted to the hospitalist service for continued rule out serial cardiac enzyme protocol given his medication noncompliance and crack use. The patient's results were discussed with the patient, including the plan of care. I explained that further testing and/ or monitoring is indicated based on the patient's history, examination, and/ or laboratory findings. Therefore, I recommended admission for additional evaluation. The patient expressed understanding and was agreeable with this plan. The patient was admitted to the hospital in stable condition and sent to a bed under the care of the [facility] service. Medical Screen Exam Complete: Yes Emergency Medical Condition: Yes Differential Diagnosis Differential Diagnosis: Acute coronary syndrome, versus crack cocaine induced vasospasm, versus malingering, versus CHF exacerbation Medical Records Medical records reviewed: Yes I reviewed the patient's medical records. Lab Data Lab results reviewed: Yes I reviewed the patient's lab results. Result diagrams: 10/13/17 05:00 10/13/17 05:00 Lab Results 10/13/17 10/13/17 10/13/17 Range/Units 05:00 05:00 05:00 WBC 7.5 (4.0-11.0) th/mm3 RBC 5.19 (4.50-5.90) mil/mm3 Hgb 15.4 (13.0-17.0) gm/dL Hct 45.8 (39.0-51.0) % MCV 88.2 (80.0-100.0) fL MCH 29.7 (27.0-34.0) pg MCHC 33.7 (32.0-36.0) % RDW 14.8 (11.6-17.2) % Plt Count 216 (150-450) th/mm3 MPV 7.8 (7.0-11.0) fL Neut % (Auto) 52.7 (16.0-70.0) % Lymph % (Auto) 36.3 (9.0-44.0) % [place] % (Auto) 7.8 (0.0-8.0) % Eos % (Auto) 2.0 (0.0-4.0) % Baso % (Auto) 1.2 (0.0-2.0) % Neut # (Auto) 4.0 (1.8-7.7) th/mm3 Lymph # (Auto) 2.7 (1.0-4.8) th/mm3 [place] # (Auto) 0.6 (0.0-0.9) th/mm3 Eos # (Auto) 0.1 (0.0-0.4) th/mm3 Baso # (Auto) 0.1 (0.0-0.2) th/mm3 WBC Differential . Differential Comment Auto diff final PT (9.8-11.6) sec INR Ratio APTT (24.3-30.1) sec Sodium 143 (136-145) meq/L Potassium 3.6 (3.5-5.1) meq/L Chloride 108 H (98-107) meq/L Carbon Dioxide 23.8 (21.0-32.0) meq/L Anion Gap 11 (5-15) meq/L BUN 6 L (7-18) mg/dL Creatinine 1.07 (0.60-1.30) mg/dL Estimated GFR 85 L (>89) mL/min POC Glucose (68-110) mg/dl Random Glucose 98 (74-106) mg/dL Calcium 8.0 L (8.5-10.1) mg/dL Magnesium 2.1 (1.5-2.5) mg/dL Total Bilirubin 0.4 (0.2-1.0) mg/dL AST 31 (15-37) U/L ALT 28 (12-78) U/L Alkaline Phosphatase 90 (45-117) U/L Total Creatine Kinase 893 H (39-308) U/L CK-MB (CK-2) 12.3 H (0.5-3.6) ng/mL CK-MB (CK-2) % 1.4 (0.0-4.0) % Troponin I 0.06 H (0.02-0.05) ng/mL B-Natriuretic Peptide 15 (0-100) pg/mL Total Protein 7.0 (6.4-8.2) g/dL Albumin 3.3 L (3.4-5.0) g/dL Lipase 107 (73-393) U/L Urine Opiates Screen (Neg) Ur Barbiturates Screen (Neg) Ur Amphetamines Screen (Neg) U Benzodiazepines Scrn (Neg) Urine Cocaine Screen (Neg) U Cannabinoids Screen (Neg) Serum Alcohol 127 H (0-5) mg/dL 10/13/17 10/13/17 10/13/17 Range/Units 05:00 11:00 11:45 WBC (4.0-11.0) th/mm3 RBC (4.50-5.90) mil/mm3 Hgb (13.0-17.0) gm/dL Hct (39.0-51.0) % MCV (80.0-100.0) fL MCH (27.0-34.0) pg MCHC (32.0-36.0) % RDW (11.6-17.2) % Plt Count (150-450) th/mm3 MPV (7.0-11.0) fL Neut % (Auto) (16.0-70.0) % Lymph % (Auto) (9.0-44.0) % [place] % (Auto) (0.0-8.0) % Eos % (Auto) (0.0-4.0) % Baso % (Auto) (0.0-2.0) % Neut # (Auto) (1.8-7.7) th/mm3 Lymph # (Auto) (1.0-4.8) th/mm3 [place] # (Auto) (0.0-0.9) th/mm3 Eos # (Auto) (0.0-0.4) th/mm3 Baso # (Auto) (0.0-0.2) th/mm3 WBC Differential Differential Comment PT 11.4 (9.8-11.6) sec INR 1.1 Ratio APTT 20.9 L (24.3-30.1) sec Sodium (136-145) meq/L Potassium (3.5-5.1) meq/L Chloride (98-107) meq/L Carbon Dioxide (21.0-32.0) meq/L Anion Gap (5-15) meq/L BUN (7-18) mg/dL Creatinine (0.60-1.30) mg/dL Estimated GFR (>89) mL/min POC Glucose 99 (68-110) mg/dl Random Glucose (74-106) mg/dL Calcium (8.5-10.1) mg/dL Magnesium (1.5-2.5) mg/dL Total Bilirubin (0.2-1.0) mg/dL AST (15-37) U/L ALT (12-78) U/L Alkaline Phosphatase (45-117) U/L Total Creatine Kinase 716 H (39-308) U/L CK-MB (CK-2) 9.9 H (0.5-3.6) ng/mL CK-MB (CK-2) % 1.4 (0.0-4.0) % Troponin I 0.07 H (0.02-0.05) ng/mL B-Natriuretic Peptide (0-100) pg/mL Total Protein (6.4-8.2) g/dL Albumin (3.4-5.0) g/dL Lipase (73-393) U/L Urine Opiates Screen (Neg) Ur Barbiturates Screen (Neg) Ur Amphetamines Screen (Neg) U Benzodiazepines Scrn (Neg) Urine Cocaine Screen (Neg) U Cannabinoids Screen (Neg) Serum Alcohol (0-5) mg/dL 10/13/17 Range/Units 14:35 WBC (4.0-11.0) th/mm3 RBC (4.50-5.90) mil/mm3 Hgb (13.0-17.0) gm/dL Hct (39.0-51.0) % MCV (80.0-100.0) fL MCH (27.0-34.0) pg MCHC (32.0-36.0) % RDW (11.6-17.2) % Plt Count (150-450) th/mm3 MPV (7.0-11.0) fL Neut % (Auto) (16.0-70.0) % Lymph % (Auto) (9.0-44.0) % [place] % (Auto) (0.0-8.0) % Eos % (Auto) (0.0-4.0) % Baso % (Auto) (0.0-2.0) % Neut # (Auto) (1.8-7.7) th/mm3 Lymph # (Auto) (1.0-4.8) th/mm3 [place] # (Auto) (0.0-0.9) th/mm3 Eos # (Auto) (0.0-0.4) th/mm3 Baso # (Auto) (0.0-0.2) th/mm3 WBC Differential Differential Comment PT (9.8-11.6) sec INR Ratio APTT (24.3-30.1) sec Sodium (136-145) meq/L Potassium (3.5-5.1) meq/L Chloride (98-107) meq/L Carbon Dioxide (21.0-32.0) meq/L Anion Gap (5-15) meq/L BUN (7-18) mg/dL Creatinine (0.60-1.30) mg/dL Estimated GFR (>89) mL/min POC Glucose (68-110) mg/dl Random Glucose (74-106) mg/dL Calcium (8.5-10.1) mg/dL Magnesium (1.5-2.5) mg/dL Total Bilirubin (0.2-1.0) mg/dL AST (15-37) U/L ALT (12-78) U/L Alkaline Phosphatase (45-117) U/L Total Creatine Kinase (39-308) U/L CK-MB (CK-2) (0.5-3.6) ng/mL CK-MB (CK-2) % (0.0-4.0) % Troponin I (0.02-0.05) ng/mL B-Natriuretic Peptide (0-100) pg/mL Total Protein (6.4-8.2) g/dL Albumin (3.4-5.0) g/dL Lipase (73-393) U/L Urine Opiates Screen Neg (Neg) Ur Barbiturates Screen Neg (Neg) Ur Amphetamines Screen Neg (Neg) U Benzodiazepines Scrn Neg (Neg) Urine Cocaine Screen Pos H (Neg) U Cannabinoids Screen Pos H (Neg) Serum Alcohol (0-5) mg/dL Imaging Data Radiologist's impression: Chest X-Ray 10/13/17 04:45 CONCLUSION: Severely motion degraded images of the chest demonstrates no gross abnormality. Consider follow-up chest x-ray when patient is better able to cooperate with the examination. ECG Data Attestation: I personally reviewed and interpreted this ECG as follows: Interpretation: The patient had an EKG done on arrival. The patient's EKG reveals sinus rhythm heart rate of 86, QRS duration 93 ms, QTC [address] segment elevation. Discharge Plan Discharge Disposition Patient Disposition: 01 Discharge Home Discharge Condition Condition: Stable Discharge Order Discharge Orders: Discharge Order (Routine); Ordered 10/13/17 Ordered By: Sondra Hudson Discharge Details Anticipated Discharge Date: 10/13/17 Diagnosis: Chest pain, rule out acute myocardial infarction, Crack cocaine use, Elevated troponin Physicians Team ED Provider: Carli Méndez Primary Care Provider: [facility],Physician 's Attending Provider: Kolton Acharya Discharge Interventions Interventions: ED Discharge Assessment Last Done: 10/13/17 08:12 Status ED Status: Left Department Discharge Information Discharge Date/Time: 10/13/17 08:00
[2017-10-13 05:52] LABS: Baso # (Auto) 0.1 th/mm3 (0.0-0.2); Baso % (Auto) 1.2 % (0.0-2.0); Eos # (Auto) 0.1 th/mm3 (0.0-0.4); Hematocrit 45.8 % (39.0-51.0); Hemoglobin 15.4 gm/dL (13.0-17.0); Lymph # (Auto) 2.7 th/mm3 (1.0-4.8); Lymph % (Auto) 36.3 % (9.0-44.0); Mean Corpuscular HGB Conc 33.7 % (32.0-36.0); Mean Corpuscular Hemoglobin 29.7 pg (27.0-34.0); Mean Corpuscular Volume 88.2 fL (80.0-100.0); Mean Platelet Volume 7.8 fL (7.0-11.0); Mono # (Auto) 0.6 th/mm3 (0.0-0.9); Mono % (Auto) 7.8 % (0.0-8.0); Neut % (Auto) 52.7 % (16.0-70.0); Platelet Count 216 th/mm3 (150-450); Red Blood Count 5.19 mil/mm3 (4.50-5.90); Red Cell Distribution Width 14.8 % (11.6-17.2); White Blood Count 7.5 th/mm3 (4.0-11.0)
[2017-10-13 06:03] LABS: Activated Partial Thrombo Time 20.9 sec (24.3-30.1); INR 1.1 Ratio; Prothrombin Time 11.4 sec (9.8-11.6)
--- NOTE | 2017-10-13 06:03 | XR ---
EXAM DATE: 10/13/2017 5:59 AM EDT AGE/SEX: 61 years / Male INDICATIONS: Chest pain. CLINICAL DATA: This is the patient's initial encounter. Patient reports that signs and symptoms have been present for 1 day and indicates a pain score of Nonresponsive. MEDICAL/SURGICAL HISTORY: . Diabetes. Gastroesophageal reflux disease. Hepatitis C. Drug and A lcohol Abuse, Neuropathy None. COMPARISON: [facility] [place] 1[place] SINGLE AP, 09/23/2017. . FINDINGS: 2 motion degraded portable AP views of the chest demonstrate a normal-sized cardiac silhouette. No de finite effusion or consolidation is identified. Bones and soft tissues demonstrate no gross abnormali ty. CONCLUSION: Severely motion degraded images of the chest demonstrates no gross abnormality. Consider follow-up est x-ray when patient is better able to cooperate with the examination. Electronically signed by: Corey Ayala MD 10/13/2017 6:01 AM EDT
[2017-10-13 06:11] LABS: Alanine Aminotransferase 28 U/L (12-78); Albumin 3.3 g/dL (3.4-5.0); Anion Gap 11 meq/L (5-15); Aspartate Aminotransferase 31 U/L (15-37); Blood Urea Nitrogen 6 mg/dL (7-18); Carbon Dioxide 23.8 meq/L (21.0-32.0); Chloride 108 meq/L (98-107); Glomerular Filtration Rate 85 mL/min (>89); Glucose,Random 98 mg/dL (74-106); Lipase 107 U/L (73-393); Magnesium 2.1 mg/dL (1.5-2.5); Potassium 3.6 meq/L (3.5-5.1); Sodium 143 meq/L (136-145)
[2017-10-13 06:13] LABS: Alcohol 127 mg/dL (0-5); Alkaline Phosphatase 90 U/L (45-117); Creatine Kinase 893 U/L (39-308); Troponin I 0.06 ng/mL (0.02-0.05)
[2017-10-13 06:26] LABS: CKMB Percent 1.4 % (0.0-4.0); Creatine Kinase MB 12.3 ng/mL (0.5-3.6)
[2017-10-13] MEDS ORDERED: Acetaminophen 500 MG Tablet PO PRN (06:59)
[2017-10-13] MEDS ORDERED: Sod Chloride 0.9% Inj 1,000 ML IV.CONT SCH (07:00)
[2017-10-13] MEDS ORDERED: LORazepam 1 MG Tablet PO PRN (07:04)
[2017-10-13] MEDS ORDERED: Haloperidol Inj 5 MG/ML Ampul IV.PUSH PRN (07:04)
[2017-10-13] MEDS: Heparin - SQ 10,000 UNITS/ML Vial SQ SCH ×2 (07:53→14:24)
--- NOTE | 2017-10-13 07:54 | ECG ---
Date Performed: 10/13/2017 Time Performed: 04:31:33 PTAGE: 61 years EKG: Sinus rhythm NORMAL ECG PREVIOUS TRACING : 10/04/2017 17.00 No significant change from previous tracing noted. DOCTOR: Mehul Mckeon Interpretating Date/Time 10/13/2017 07:53:06
[2017-10-13] MEDS ORDERED: Dextrose 50% in Water 50 ML Vial IV.PUSH PRN (08:43)
[2017-10-13] MEDS ORDERED: Famotidine 20 MG Tablet PO SCH (09:00)
[2017-10-13] MEDS ORDERED: Aspirin 325 MG Tablet PO SCH (09:00)
[2017-10-13 11:36] LABS: Troponin I 0.07 ng/mL (0.02-0.05)
[2017-10-13 11:48] LABS: CKMB Percent 1.4 % (0.0-4.0); Creatine Kinase MB 9.9 ng/mL (0.5-3.6)
[2017-10-13] MEDS ORDERED: amLODIPine 5 MG Tablet PO SCH (12:00)
[2017-10-13] MEDS ORDERED: Insulin NovoLOG Aspart Correctional Sugar Inj SQ SCH (12:00)
--- NOTE | 2017-10-13 12:08 | P.HP ---
History of Present Illness Service: Hospitalist Primary Care Physician: [facility] Chief Complaint: chest pain History of Present Illness: 61yo male with PMHX significant for HTN, crack cocaine abuse, alcohol abuse, CAD , Hep C, schizoaffective disorder, dyslipidemia and diabetes who presented to [facility] ED with complaints of chest pain x 2 days. Patient is not a very good historian. Patient reports midsternal "thumping" chest pain that started around 730am yesterday and has been progressive with associated dyspnea. He is currently chest pain free. He tells me he hurts all over. He denies any fever or chills. He denies any shortness of breath. He denies any nausea, vomiting or abdominal pain. He is a daily drinker and uses crack cocaine. Of note, patient reportedly developed chest pain as a police captain precinct was placing him under arrest for trespassing. In the ED, EKG revealed NSR, no evidence of ischemia. Patients initial troponin is slightly elevated at 0.06. CPK is 893. Creatinine is 1.07. His alcohol level was 127. Patient had a previous cardiac catheterization done March 17, 2017 which showed 50% ostial stenosis at the trifurcation of the ramus intermedius branch. The patient also had mild disease luminal irregularities noted in the right coronary artery. At that time, Dr. Hernandez recommended medical management with aspirin, statin therapy , isosorbide. He was also admitted 09/23/17 with complaints of chest pain, elevated troponins and recent cocaine use. Patient had an echocardiogram done with EF 55% at that admission. Review of Systems All other systems reviewed negative except as stated in HPI PMFSH - History History Provided By: Patient, Medical Record - Medical History Medical History: Medical History (Last Reviewed 10/13/17 @ 11:46 by Sondra Hudson) Drug abuse (Acute) ETOH abuse (Acute) Depression (emotion) (Acute) Hypercholesteremia (Acute) Hepatitis C (Acute) Schizophrenia (Acute) HTN (hypertension) (Acute) GERD (gastroesophageal reflux disease) (Acute) Heart block (Acute) Neuropathy (Acute) Anxiety (Acute) Insomnia (Acute) Diabetes (Acute) - Surgical History Surgical History: Surgical History (Last Updated 10/13/17 @ 11:49 by Sondra Hudson) H/O hand surgery - Family History Family History: Family History (Last Updated 10/13/17 @ 11:49 by Sondra Hudson) Other Heart disease - Tobacco History Second Hand Smoke Exposure: No Tobacco Use In Past 30 Days: Yes Smoking Status: Heavy tobacco smoker Tobacco Type: Cigarettes Packs Per Day: 1 Cigarettes Per Day: 20.0 - Alcohol History How Often Do You Have a Drink Containing Alcohol: 4 or more times a week - Substance Use History Substance History: Active Abuse - Substance Use Type Crack/Cocaine Route Used: Inhalation Last Used: every other day Reason for Use: Get High - Travel History Recent Travel in the [place] Within the Last 8 Weeks: No Recent Travel Out of the Country Within the Last 8 Weeks: No - Immunization History Tetanus Immunization: Unsure Hx Influenza Vaccine This Season: No Medications and Allergies Active Medications: Active Medications Acetaminophen (Tylenol) 500 mg PO Q4H PRN PRN Reason: HEADACHE Aspirin (Aspirin) 325 mg PO DAILY [facility] Last Admin: 10/13/17 08:01 Dose: 325 mg Dextrose (D50w Vial) 50 ml IV.PUSH UNSCH PRN PRN Reason: PER HYPOGLYCEMIA PROTOCOL Famotidine (Pepcid) 20 mg PO BID [facility] Last Admin: 10/13/17 08:01 Dose: 20 mg Flumazenil (Romazecon Inj) 0.2 mg IV.PUSH Q1M PRN PRN Reason: OVERSEDATION Glucagon (Glucagon Inj) 1 mg OTHER PRN PRN PRN Reason: for Hypoglycemia Protocol Haloperidol Lactate (Haldol Inj) 1 mg IV.PUSH Q15M PRN PRN Reason: for severe agitation Heparin Sodium (Porcine) (Heparin Inj) 5,000 units SQ Q8H [facility] Last Admin: 10/13/17 07:53 Dose: 5,000 units Sodium Chloride (Ns Inj) 1,000 mls @ 100 mls/hr IV.CONT .Q10H [facility] Last Infusion: 10/13/17 08:01 Dose: 100 mls/hr Insulin Aspart (Novolog Insulin Correctional Sugar Inj) 0 unit SQ ACHS [facility]; Protocol Lorazepam (Ativan) 1 mg PO Q4H PRN PRN Reason: for CIWA 8-10 Lorazepam (Ativan) 2 mg PO Q2H PRN PRN Reason: for CIWA 11-14 Lorazepam (Ativan Inj) 2 mg IV.PUSH Q2H PRN PRN Reason: for CIWA 11-14 Lorazepam (Ativan Inj) 2 mg IV.PUSH Q1H PRN PRN Reason: for CIWA 15-20 Lorazepam (Ativan Inj) 1 mg IV.PUSH Q4H PRN PRN Reason: for CIWA 8-10 Lorazepam (Ativan Inj) 2 mg IV.PUSH Q15M PRN PRN Reason: for CIWA > 20 Nitroglycerin (Nitrostat Sl) 0.4 mg SL Q5M PRN PRN Reason: ANGINA Sodium Chloride (Ns Flush) 2 ml IV.FLUSH UNSCH PRN PRN Reason: FLUSH AFTER USING IV ACCESS Sodium Chloride (Ns Flush) 2 ml IV.FLUSH BID [facility] Last Admin: 10/13/17 08:58 Dose: Not Given Sodium Chloride (Ns Flush) 2 ml IV.FLUSH PRN PRN PRN Reason: FLUSH AFTER USING IV ACCESS Allergies Allergy/AdvReac Type Severity Reaction Status Date / Time lisinopril AdvReac Intermediate COUGH Verified 10/13/17 04:38 Home Medications Medication Instructions Recorded Confirmed Type insulin NPH and regular human 1 unit SUB-Q DAILY 10/13/17 10/13/17 History [Novolin 70/30 U-100 Insulin] Exam Vital signs: Vital Signs 10/13/17 04:35 10/13/17 06:50 10/13/17 07:45 Temperature 98.2 F Pulse Rate 84 85 92 H Respiratory Rate 16 18 Blood Pressure 135/83 158/92 H Pulse Oximetry 96 10/13/17 08:00 10/13/17 09:13 Temperature 98.2 F Pulse Rate 76 86 Respiratory Rate 16 Blood Pressure 151/76 H Pulse Oximetry 98 Intake & Output 10/12/17 10/13/17 10/13/17 18:59 06:59 18:59 Weight 80 kg Narrative: GENERAL: WDWN male patient, INAD. Awake and alert. Appears comfortable. SKIN: Warm and dry. HEAD: Atraumatic. Normocephalic. EYES: Pupils equal and round. No scleral icterus. No injection or drainage. ENT: No nasal bleeding or discharge. Mucous membranes pink and moist. NECK: Trachea midline. CARDIOVASCULAR: Regular rate and rhythm. RESPIRATORY: No accessory muscle use. Clear to auscultation. Breath sounds equal bilaterally. GASTROINTESTINAL: Abdomen soft, non-tender, nondistended. Hepatic and splenic margins not palpable. MUSCULOSKELETAL: Extremities without clubbing, cyanosis, or edema. No obvious deformities. NEUROLOGICAL: Awake and alert. No obvious cranial nerve deficits. Motor grossly within normal limits. No focal neurologic findings appreciated. Normal speech. PSYCHIATRIC: Calm and cooperative. Insight and judgment poor. Results - Labs CBC & Chem 7: 10/13/17 05:00 10/13/17 05:00 Labs: Laboratory Results - last 24 hr 10/13/17 10/13/17 10/13/17 05:00 05:00 05:00 WBC 7.5 RBC 5.19 Hgb 15.4 Hct 45.8 MCV 88.2 MCH 29.7 MCHC 33.7 RDW 14.8 Plt Count 216 MPV 7.8 Neut % (Auto) 52.7 Lymph % (Auto) 36.3 Tripp % (Auto) 7.8 Eos % (Auto) 2.0 Baso % (Auto) 1.2 Neut # (Auto) 4.0 Lymph # (Auto) 2.7 Tripp # (Auto) 0.6 Eos # (Auto) 0.1 Baso # (Auto) 0.1 WBC Differential . Differential Comment Auto diff final PT INR APTT Sodium 143 Potassium 3.6 Chloride 108 H Carbon Dioxide 23.8 Anion Gap 11 BUN 6 L Creatinine 1.07 Estimated GFR 85 L Random Glucose 98 Calcium 8.0 L Magnesium 2.1 Total Bilirubin 0.4 AST 31 ALT 28 Alkaline Phosphatase 90 Total Creatine Kinase 893 H CK-MB (CK-2) 12.3 H CK-MB (CK-2) % 1.4 Troponin I 0.06 H B-Natriuretic Peptide 15 Total Protein 7.0 Albumin 3.3 L Lipase 107 Serum Alcohol 127 H 10/13/17 05:00 WBC RBC Hgb Hct MCV MCH MCHC RDW Plt Count MPV Neut % (Auto) Lymph % (Auto) Tripp % (Auto) Eos % (Auto) Baso % (Auto) Neut # (Auto) Lymph # (Auto) Tripp # (Auto) Eos # (Auto) Baso # (Auto) WBC Differential Differential Comment PT 11.4 INR 1.1 APTT 20.9 L Sodium Potassium Chloride Carbon Dioxide Anion Gap BUN Creatinine Estimated GFR Random Glucose Calcium Magnesium Total Bilirubin AST ALT Alkaline Phosphatase Total Creatine Kinase CK-MB (CK-2) CK-MB (CK-2) % Troponin I B-Natriuretic Peptide Total Protein Albumin Lipase Serum Alcohol - Imaging Impressions Chest X-Ray 10/13/17 04:45 CONCLUSION: Severely motion degraded images of the chest demonstrates no gross abnormality. Consider follow-up chest x-ray when patient is better able to cooperate with the examination. Caprini VTE Risk Assessment Caprini VTE Risk Assessment: No/Low Risk (score <= 1) Caprini Risk Assessment Model: Point Value = 1 Point Value = 2 Point Value = 3 Point Value = 5 Age 41-60 Minor surgery BMI > 25 kg/m2 Swollen legs Varicose veins or History of unexplained or recurrent spontaneous Oral contraceptives or hormone replacement Sepsis (< 1 month) Serious lung disease, including pneumonia (< 1 month) Abnormal pulmonary function Acute myocardial infarction Congestive heart failure (< 1 month) History of inflammatory bowel disease Medical patient at bed rest Age 61-74 Arthroscopic surgery Major open surgery (> 45 min) Laparoscopic surgery (> 45 min) Malignancy Confined to bed (> 72 hours) Immobilizing plaster cast Central venous access Age >= 75 History of VTE Family history of VTE Factor V Leiden Prothrombin [id number] Lupus anticoagulant Anticardiolipin antibodies Elevated serum homocysteine Heparin-induced thrombocytopenia Other congenital or acquired thrombophilia Stroke (< 1 month) Elective arthroplasty Hip, pelvis, or leg fracture Acute spinal cord injury (< 1 month) Prophylaxis Regimen: Total Risk Factor Score Risk Level Prophylaxis Regimen 0-1 Low Early ambulation 2 Moderate Order ONE of the following: *Sequential Compression Device (SCD) *Heparin 5000 units SQ BID 3-4 Higher Order ONE of the following medications: *Heparin 5000 units SQ TID *Enoxaparin/Lovenox 40 mg SQ daily (WT < 150 kg, CrCl > 30 mL/min) *Enoxaparin/Lovenox 30 mg SQ daily (WT < 150 kg, CrCl > 10-29 mL/min) *Enoxaparin/Lovenox 30 mg SQ BID (WT < 150 kg, CrCl > 30 mL/min) AND/OR *Sequential Compression Device (SCD) 5 or more Highest Order ONE of the following medications: *Heparin 5000 units SQ TID (Preferred with Epidurals) *Enoxaparin/Lovenox 40 mg SQ daily (WT < 150 kg, CrCl > 30 mL/min) *Enoxaparin/Lovenox 30 mg SQ daily (WT < 150 kg, CrCl > 10-29 mL/min) *Enoxaparin/Lovenox 30 mg SQ BID (WT < 150 kg, CrCl > 30 mL/min) AND *Sequential Compression Device (SCD) Assessment and Plan - Plan 61-year-old male admitted for chest pain related to crack cocaine use Chest pain Cocaine Abuse Hx of elevated troponin Echo 09/26 with EF 55%, Cardiac cath 03/29 showing 50% ostial stenosis at the trifurcation of the ramus intermedius branch, cardiology recommended medical management Troponin 0.06, 0.07 EKG shows NSR, no e/o ischemia Evaluate for Acute Coronary Syndrome Follow cardiac enzymes Aspirin and statin daily NTG prn chest pain Avoid BB secondary to active cocaine use supplemental oxygen as needed Follow on cardiac telemetry Rhabdomyolysis, secondary to cocaine use CPK trending down Continue on IVF hydration monitor kidney fxn Hypertension resume on home dose of Norvasc 5mg daily monitor BP and adjust treatment accordingly Diabetes mellitus type 2 Follow blood sugars with accucheks Insulin sliding scale Diabetic diet Polysubstance abuse Hep C Long hx of alcohol abuse and crack cocaine use Obtain urine drug screen [facility] protocol Thiamine/MVI/folic acid daily Counselled patient on cessation of all alcohol and drugs DVT prophylaxis Heparin sq 1500 No recurrence of chest pain. Trops stable. CPK trending down. Discussed with Dr. Acharya. Patient cleared for discharge to home. Strongly advised to increase fluid intake and stop using cocaine. 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 Acharya
[2017-10-13] MEDS ORDERED: Folic Acid 1 MG Tablet PO SCH (12:15)
[2017-10-13 17:35] LABS: Amphetamine Screen,Urine Neg (Neg); Barbiturate Screen,Urine Neg (Neg); Cannabinoid Screen,Urine Pos (Neg); Cocaine Screen,Urine Pos (Neg)
[2017-10-13 17:37] LABS: Opiate Screen,Urine Neg (Neg)
--- NOTE | 2017-10-14 13:27 | ECG ---
Date Performed: 10/13/2017 Time Performed: 11:03:53 PTAGE: 61 years EKG: Sinus rhythm POSSIBLE LEFT ATRIAL ENLARGEMENT BORDERLINE ECG INTERPRETATION BASED ON A DEFAULT AGE OF 41 YEARS NO PREVIOUS TRACING DOCTOR: Anton Hernandez Interpretating Date/Time 10/14/2017 13:25:46
== END 2017-10-13 15:59 | disposition home or self-care (01) ==
LOC: NEDA 04:25 → NEPE 04:25 → NEPGCP 08:00
PROVIDERS: ADMIT Hospitalist; ATTEND Hospitalist